=== PATIENT | female | born 1935 | race Caucasian/White ===

== ENCOUNTER 2023-04-15 10:25 | Outpatient (OUT) | payer MEDICARE, SELFPAY ==
[2023-04-15 11:09] LABS: Anion Gap 14.2; BUN Creatinine Ratio 31.5; Calcium 8.9 mg/dL (8.5-10.1); Carbon Dioxide 25.2 mmol/L (21.0-32.0); Chloride 105 mmol/L (98-107); Estimated GFR (African America 40 (>=60); Estimated GFR (Non-African Ame 33 (>=60); Glucose 132 mg/dL (74-106); Potassium 4.4 mmol/L (3.5-5.1); Sodium 140 mmol/L (136-145)
[2023-04-15 11:14] LABS: Basophils Absolute Auto 0.1 10^3/uL (0.0-0.1); Basophils Percent Auto 0.9 % (0.2-2.0); Eosinophils Absolute Auto 0.6 10^3/uL (0.0-0.7); Eosinophils Percent Auto 8.6 % (0.9-7.0); Hematocrit 33.4 % (36.0-48.0); Hemoglobin 10.8 g/dL (12.0-16.0); Immature Granulocytes Abs Auto 0.02 10^3/uL (0.00-0.03); Immature Granulocytes Pct Auto 0.3 % (0.0-0.5); Lymphocytes Absolute Auto 1.1 10^3/uL (1.2-3.8); Lymphocytes Percent Auto 16.5 % (20.5-60.0); Mean Corpuscular HGB Conc 32.3 g/dL (29.9-35.2); Mean Corpuscular Hemoglobin 29.3 pg (26.7-34.0); Mean Corpuscular Volume 90.8 fL (81.0-99.0); Mean Platelet Volume 9.6 fL (9.5-13.5); Monocytes Absolute Auto 0.5 10^3/uL (0.3-0.8); Monocytes Percent Auto 8.4 % (1.7-12.0); Neutrophils Absolute Auto 4.2 10^3/uL (1.4-6.5); Neutrophils Percent Auto 65.3 % (43.0-75.0); Platelet Count 238 10^3/uL (150-450); Red Blood Count 3.68 10^6/uL (4.20-5.40); White Blood Count 6.4 10^3/uL (4.0-11.0)
[2023-04-15 11:23] LABS: Estimated Average Glucose 117 mg/dL; Glycohemoglobin A1C 5.7 % (4.5-6.2)
== END 2023-04-15 10:26 | disposition home or self-care (01) ==
LOC: LAB 10:30
PROVIDERS: PCP Family Medicine; Visit Provider Family Medicine
DX: E11.22 Type 2 diabetes mellitus with diabetic chronic kidney disease (principal)
CPT/HCPCS: 36415; 80048; 83036; 85025

== ENCOUNTER 2023-06-02 13:38 | Outpatient (OUT) | payer MEDICARE, SELFPAY ==
--- NOTE | 2023-06-02 14:30 | CA_ITS ---
Patient: JUDIE JOHNSON Exam Date: 06/02/2023 : 1935 Gender:F Ordering : MISSY DEL ANGEL Admission #: [id number] Family : DR Marlen Wilkerson M.D. Order #: [id number] CLICK HERE TO VIEW EXAM ECHOCARDIOGRAM REPORT PROCEDURE: CA ECHO DOPPLER COMPLETE INDICATIONS: Chronic combined systolic and diastolic heart failure, non-rheumatic mitral valve stenosis, TAVR, hypertension, diabetes COMPARISON: None. DESCRIPTION: COMPLETE ECHOCARDIOGRAM Real-time transthoracic echocardiography with 2D, M-mode, spectral and color flow Doppler performed. QUALITY: Technical quality was good. LEFT VENTRICLE: Normal chamber size. Moderate concentric left ventricular hypertrophy. LV EF: Normal left ventricular ejection fraction, (>55%). Abnormal septal motion consistent with right ventricular pressure and/or volume overload. DIASTOLIC: Unable to assess due to severe mitral valve disease. ATRIAL SEPTUM: Inadequately seen. LEFT ATRIUM: Severe dilatation. RIGHT ATRIUM: Severe dilatation. RIGHT VENTRICLE: Moderate dilatation. Systolic function appears reduced. TRICUSPID VALVE: Normal mobility and thickness. Severe regurgitation. Doppler studies reveal severely (>60) elevated right sided pressures. RVSP 114 mmHg MITRAL VALVE: Severely thickened with decreased mobility. Severe mitral annular calcification. Moderate to severe mitral regurgitation. Gradients consistent with severe mitral stenosis. AORTIC VALVE: Not well seen. Bio-Prosthetic valve appears well seated in the aortic position with abnormally high Doppler flow. DVI 0.34. No aortic regurgitation. AORTIC ROOT: Normal diameter and appearance. PULMONIC VALVE: Normal thickness and mobility. No stenosis. Moderate regurgitation. PERICARDIUM: No evidence of pericardial effusion. IVC: IVC is normal in size with no collapse. CONCLUSION: 1. Global left ventricular systolic function is normal; visually estimated ejection fraction is 55 to 60% 2. Abnormal septal motion consistent with right ventricular pressure and/or volume overload 3. Moderate left ventricular hypertrophy 4. Severe biatrial enlargement 5. The right ventricle is moderately dilated with reduced systolic function 6. Severe tricuspid regurgitation 7. Doppler studies reveal severely elevated right-sided pressures; RVSP 114 mmHg 8. Moderate to severe mitral regurgitation 9. Severe mitral stenosis 10. A bioprosthetic valve is seen in the aortic position with abnormally high Doppler flow 11. Moderate pulmonic regurgitation Adult Echocardiography Procedure Report Left Ventricle LVEDD (3.7 - 5.6 cm): 4.32 cm LVESD (2.2 - 4.0 cm): 2.68 cm LVIVS thickness (0.6 - 1.2 cm): 1.54 cm LVPW thickness (0.5 - 1.0 cm): 0.91 cm LVOT Max Gradient: 4.00 mm[Hg] LVOT Area (cm2): 1.00 m/s Peak Velocity (LVOT): 1.00 m/s Mean Velocity (LVOT): 0.76 m/s LVOT Diameter 1.60 cm Left Atrium LA Volume Index (2D A2C): 69.27 ml/m2 Left Atrium Systolic Dimension: 5.13 cm Mitral Valve Right Ventricle Aorta AO Root Diam: 2.69 cm Aortic Valve AoV Area (Peak Christian): 0.70 cm2, 0.70 cm2 AoV Area (VTI): 0.97 cm2, 0.97 cm2 Peak Velocity(Antegrade Flow): 2.87 m/s Peak Gradient(Antegrade Flow): 32.93 mm[Hg] Mean Velocity(Antegrade Flow): 1.99 m/s Mean Gradient(Antegrade Flow): 18.20 mm[Hg] Velocity Time Integral: 64.61 cm Tricuspid Valve Peak Velocity (Regurgitant Flow): 4.82 m/s, 3.88 m/s, 4.83 m/s, 5.16 m/s Pulmonic Valve Peak Velocity: 1.12 m/s Peak Gradient: 5.15 mm[Hg], 4.97 mm[Hg] Right Atrium Right Atrium Systolic Pressure: 88.53 ml, 88.53 ml Dictated by: Albina Brower M.D. on 06/03/2023 at 12:48 Approved by: Albina Brower M.D. on 06/03/2023 at 12:57
== END 2023-06-02 13:39 | disposition home or self-care (01) ==
LOC: CARD 13:38
PROVIDERS: PCP Family Medicine; Visit Provider Nurse Practitioner
DX: I50.42 Chronic combined systolic (congestive) and diastolic (congestive) heart failure (principal); I34.2 Nonrheumatic mitral (valve) stenosis
CPT/HCPCS: 93306

== ENCOUNTER 2023-06-04 15:19 | Outpatient (OUT) | payer MEDICARE, SELFPAY ==
--- NOTE | 2023-06-04 | XR_ITS ---
The [address] [address] Patient Name: JUDIE JOHNSON MRN: [id number] date: 1935 Sex: F Assigned Patient Location: LAB Current Patient Location: Accession/Order Number: [id number] Exam Date: 06/04/2023 15:44 Report Date: 06/05/2023 13:58 At the request of: MISSY DEL ANGEL Procedure: XR chest 2V XR chest 2V COMPARISON: September 2022 chest x-ray CLINICAL HISTORY: R06.02, DYSPNEA TECHNIQUE: 2 views FINDINGS: There is a normal cardiac and mediastinal contour. Previous sternotomy and aortic valve prosthesis. The pulmonary vascular pattern is normal. The lungs are clear and the pleural margins are sharp. There are no significant skeletal abnormalities. XR/XR chest 2V IMPRESSION: NO ACUTE RADIOGRAPHIC FINDINGS. Electronically authenticated by: ADELINA MEHTA Date: 06/05/2023 13:58
[2023-06-04 15:39] LABS: Basophils Absolute Auto 0.1 10^3/uL (0.0-0.1); Basophils Percent Auto 1.2 % (0.2-2.0); Eosinophils Absolute Auto 0.7 10^3/uL (0.0-0.7); Eosinophils Percent Auto 8.5 % (0.9-7.0); Hematocrit 35.5 % (36.0-48.0); Hemoglobin 11.5 g/dL (12.0-16.0); Immature Granulocytes Abs Auto 0.03 10^3/uL (0.00-0.03); Immature Granulocytes Pct Auto 0.4 % (0.0-0.5); Lymphocytes Absolute Auto 1.6 10^3/uL (1.2-3.8); Lymphocytes Percent Auto 20.2 % (20.5-60.0); Mean Corpuscular HGB Conc 32.4 g/dL (29.9-35.2); Mean Corpuscular Hemoglobin 29.9 pg (26.7-34.0); Mean Corpuscular Volume 92.4 fL (81.0-99.0); Mean Platelet Volume 9.8 fL (9.5-13.5); Monocytes Absolute Auto 0.7 10^3/uL (0.3-0.8); Monocytes Percent Auto 8.4 % (1.7-12.0); Neutrophils Absolute Auto 4.7 10^3/uL (1.4-6.5); Neutrophils Percent Auto 61.3 % (43.0-75.0); Platelet Count 254 10^3/uL (150-450); Red Blood Count 3.84 10^6/uL (4.20-5.40); Red Cell Distribution Width 13.6 % (11.0-15.0); White Blood Count 7.7 10^3/uL (4.0-11.0)
[2023-06-04 15:56] LABS: Alanine Aminotransferase 16 U/L (14-59); Albumin Globulin Ratio 0.8; Albumin Level 3.7 g/dL (3.4-5.0); Alkaline Phosphatase 99 U/L (46-116); Anion Gap 13.6; Aspartate Amino Transferase 12 U/L (15-37); BUN Creatinine Ratio 31.5; Bilirubin Total 0.3 mg/dL (0.2-1.0); Calcium 9.1 mg/dL (8.5-10.1); Carbon Dioxide 27.2 mmol/L (21.0-32.0); Chloride 101 mmol/L (98-107); Estimated GFR (African America 29 (>=60); Estimated GFR (Non-African Ame 24 (>=60); Globulin 4.9 g/dL; Glucose 193 mg/dL (74-106); Potassium 4.8 mmol/L (3.5-5.1); Sodium 137 mmol/L (136-145); Total Protein 8.6 g/dL (6.4-8.2)
== END 2023-06-04 15:20 | disposition home or self-care (01) ==
LOC: LAB 15:20
PROVIDERS: PCP Family Medicine; Visit Provider Nurse Practitioner
DX: I50.41 Acute combined systolic (congestive) and diastolic (congestive) heart failure (principal); I27.20 Pulmonary hypertension, unspecified; R06.02 Shortness of breath
CPT/HCPCS: 36415; 71046; 80053; 83880; 85025

== ENCOUNTER 2023-06-14 13:20 | Emergency (ER) | payer MEDICARE, SELFPAY ==
[2023-06-14 13:30] VITALS: BP 129/75; PULSE 76; RESP 20; TEMP 36.6; O2SAT 97; BMI 23.8
--- NOTE | 2023-06-14 14:43 | ED.GENADUL1 ---
HPI - General Adult General Chief complaint: Wound/Laceration Stated complaint: CUT L THUMB/BLEEDING/ON A BLOOD THINNER/CHECK BP Time Seen by Provider: 06/14/23 14:11 Source: patient Mode of arrival: walk-in Limitations: no limitations History of Present Illness HPI narrative: Patient is a 87-year-old female who is presenting with a laceration to the base of the right thumb fingernail, ulnar aspect. Approximately 0.5 cm. Patient was using a knife in the kitchen and cut her finger. Pt stated bleeding was approx 2 hours, so she came into ER. Patient had her finger soaked and cleaned when she arrived to the Emergency Room, bleeding has stopped. The nail was not involved. Patient is right-hand dominant. Patient does not know when the last time her tetanus shot was. . All systems are negative except as noted/marked. All systems reviewed and otherwise negative. . Nurses note and vital signs reviewed and patient is not hypoxic. General: The patient appears well and in no apparent distress. Patient is resting comfortably on cart. Patient is not toxic, lethargic, or listless Skin: Warm, dry, no pallor noted. There is no rash noted. No petechiae, purpura.Patient has a 0.5 cm superficial laceration at the base of her left thumbnail, all their aspect. Nail is not involved. No subungual hematoma. No active bleeding after finger has been soaked and cleaned. Full range of motion of left thumb with no difficulty. Head: Normocephalic, atraumatic Eye: Normal conjunctiva, no drainage, EOMI. PERRL Ears, Nose, Mouth, and Throat: oral mucosa is moist. Cardiovascular: Regular Rate and Rhythm, no murmur, gallop, rub Respiratory: Patient is in no distress, no accessory muscle use, lungs are clear to auscultation, no wheezing, rales or rhonchi Musculoskeletal: Patient has full range of motion of all of the extremities, no motor, sensory, or focal neurological deficits Neurological: A&O x3, normal speech Psychiatric: Cooperative Related Data Allergies Allergy/AdvReac Type Severity Reaction Status Date / Time acetaminophen [From Lortab] Allergy Unknown Verified 06/14/23 13:34 codeine Allergy Unknown Verified 06/14/23 13:34 hydrocodone [From Lortab] Allergy Unknown Verified 06/14/23 13:34 hydroquinone Allergy Unknown Verified 06/14/23 13:34 sulfamethoxazole Allergy Unknown Verified 06/14/23 13:34 [From Bactrim] trimethoprim [From Bactrim] Allergy Unknown Verified 06/14/23 13:34 Exam Constitutional Vital Signs, click to edit/add: Last Vital Signs Temp 97.8 F 06/14/23 13:30 Pulse 76 06/14/23 13:30 Resp 20 06/14/23 13:30 BP 129/75 06/14/23 13:30 Pulse Ox 97 06/14/23 13:30 O2 Del Method Room Air 06/14/23 13:30 Course Vital Signs Vital signs: Vital Signs Temperature 97.8 F 06/14/23 13:30 Pulse Rate 76 06/14/23 13:30 Respiratory Rate 20 06/14/23 13:30 Blood Pressure 129/75 06/14/23 13:30 Pulse Oximetry 97 06/14/23 13:30 Oxygen Delivery Method Room Air 06/14/23 13:30 Temperature 97.8 F 06/14/23 13:30 Pulse Rate 76 06/14/23 13:30 Respiratory Rate 20 06/14/23 13:30 Blood Pressure 129/75 06/14/23 13:30 Pulse Oximetry 97 06/14/23 13:30 Oxygen Delivery Method Room Air 06/14/23 13:30 Medical Decision Making MDM Narrative Medical decision making narrative: Patient had her tetanus updated, TdaP was given. Patient had wound cleaning, bleeding is stopped. Dermabond has been use. Education on wound care was done at bedside and on discharge paperwork. No questions at discharge. Discharge Plan Discharge Chief Complaint: Wound/Laceration Clinical Impression: Laceration Patient Disposition: Home, Self-Care Condition: Good Mode of Transportation: Private Vehicle Instructions: Laceration (ED), Finger Laceration (ED) Additional Instructions: Do not use bacitracin or Neosporin on her wound for the next 5 days, it will break down the skin glue. You had TdaP booster today. Stand Alone Forms: Portal Instructions Referrals: Marlen Wilkerson MD [Primary Care Provider] - 1 week Discharge Date/Time: 06/14/23 15:11
[2023-06-14] MEDS: ADACEL DIPH,PERTUSS(ACELL),TET VAC/PF 0.5 ML ADULT SYRINGE IM (14:59)
== END 2023-06-14 15:11 | disposition home or self-care (01) ==
PROVIDERS: Emergency Provider Emergency Medicine; PCP Family Medicine
DX: S61.012A Laceration without foreign body of left thumb without damage to nail, initial encounter (principal); W26.0XXA Contact with knife, initial encounter; Z23 Encounter for immunization
CPT/HCPCS: 12001; 90471; 90715; 99284

== ENCOUNTER 2023-07-12 11:27 | Outpatient (OUT) | payer MEDICARE, SELFPAY ==
[2023-07-12 11:50] LABS: Basophils Absolute Auto 0.1 10^3/uL (0.0-0.1); Eosinophils Absolute Auto 0.8 10^3/uL (0.0-0.7); Eosinophils Percent Auto 11.2 % (0.9-7.0); Hematocrit 34.9 % (36.0-48.0); Hemoglobin 11.5 g/dL (12.0-16.0); Immature Granulocytes Abs Auto 0.03 10^3/uL (0.00-0.03); Immature Granulocytes Pct Auto 0.4 % (0.0-0.5); Lymphocytes Absolute Auto 1.5 10^3/uL (1.2-3.8); Lymphocytes Percent Auto 21.1 % (20.5-60.0); Mean Corpuscular Hemoglobin 29.7 pg (26.7-34.0); Mean Corpuscular Volume 90.2 fL (81.0-99.0); Mean Platelet Volume 9.6 fL (9.5-13.5); Monocytes Absolute Auto 0.7 10^3/uL (0.3-0.8); Monocytes Percent Auto 10.5 % (1.7-12.0); Neutrophils Absolute Auto 3.8 10^3/uL (1.4-6.5); Neutrophils Percent Auto 55.8 % (43.0-75.0); Platelet Count 217 10^3/uL (150-450); Red Blood Count 3.87 10^6/uL (4.20-5.40); Red Cell Distribution Width 13.3 % (11.0-15.0); White Blood Count 6.9 10^3/uL (4.0-11.0)
[2023-07-12 12:20] LABS: Anion Gap 14.7; BUN Creatinine Ratio 21.8; Calcium 8.6 mg/dL (8.5-10.1); Carbon Dioxide 25.6 mmol/L (21.0-32.0); Chloride 102 mmol/L (98-107); Estimated GFR (African America 31 (>=60); Estimated GFR (Non-African Ame 25 (>=60); Glucose 214 mg/dL (74-106); Potassium 4.3 mmol/L (3.5-5.1); Sodium 138 mmol/L (136-145)
== END 2023-07-12 11:28 | disposition home or self-care (01) ==
LOC: LAB 11:28
PROVIDERS: PCP Family Medicine; Visit Provider Internal Medicine Interventional Cardiology
DX: I50.41 Acute combined systolic (congestive) and diastolic (congestive) heart failure (principal)
CPT/HCPCS: 36415; 80048; 85025

== ENCOUNTER 2023-12-01 07:04 | Outpatient (OUT) | payer MEDICARE, SELFPAY ==
--- OUTSIDE RECORDS SUMMARY | 2023-12-01 07:10 | XMS_ITS | CCD ---
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 Name Role Phone Flower Garza Unavailable JAZMINE TREVINO Admitting Unavailable YOKO HELMS Referring Unavailable SCOOTER, YOKO Primary Care Unavailable JUAN MANUEL ALONZO Attending Unavailable SCOOTER, YOKO Primary Care Unavailable YOKO HELMS Referring Unavailable MOUKARBEL, TANISHA Garcia Admitting Unavailable MOUKARBEL, TANISHA Garcia Attending Unavailable SCOOTER, YOKO Primary Care Unavailable DAVEY CARRASCO Admitting Unavailable DAVEY CARRASCO Attending Unavailable YOKO HELMS Referring Unavailable HELMS, YOKO Primary Care Unavailable SCOOTER, YOKO Referring Unavailable MOUKARBEL, TANISHA Radha Admitting Unavailable MOUKARBEL, TANISHA Garcia Attending Unavailable SCOOTER, YOKO Primary Care Unavailable SCOOTER, YOKO Referring Unavailable MOUKARBEL, TANISHA Radha Admitting Unavailable MOUKARBEL, TANISHA Garcia Attending Unavailable SCOOTER, YOKO Primary Care Unavailable DAVEY CARRASCO Admitting Unavailable DAVEY CARRASCO Attending Unavailable SCOOTER, YOKO Referring Unavailable Yoko Helms MD Primary Care Provider [phone] Yoko Helms MD Primary Care Provider DO Brad Harper Emergency Provider [phone] MD Yoko Helms Primary Care Provider DO Donn Joseph Admit Provider [phone] DO Donn Joseph Attending Provider Maria C Pelayo Other Provider Unavailable DO Petty Crandall Other Provider MD Андрей Marsh Other Provider DO Oscar Ward Other [facility] Other Provider DO Gigi Hernandez Other Provider HEMANT You Other Provider MILES Atkinson Other Provider YOKO HELMS Primary Care Unavailable KAVEH CARTAGENA Referring Unavailable PROVIDER, UNKNOWN Attending Unavailable PROVIDER, UNKNOWN Admitting Unavailable HELMS, YOKO Primary Care Unavailable PROVIDER, UNKNOWN Admitting Unavailable PROVIDER, UNKNOWN Attending Unavailable HELMS, YOKO Primary Care Unavailable PROVIDER, UNKNOWN Attending Unavailable PROVIDER, UNKNOWN Admitting Unavailable HELMS, YOKO Primary Care Unavailable PROVIDER, UNKNOWN Attending Unavailable PROVIDER, UNKNOWN Admitting Unavailable CONSULT, IP DENTISTRY ADULT Consulting Unav ailable DODGE, NURYS Referring Unavailable SCOOTER, YOKO Primary Care Unavailable ATASSI, BROOK Admitting Unavailable STARKEY, JUAN Attending Unavailable REQUEST, IP PHYSICAL THERAPY SERVICE Consulting Unavailable REQUEST, IP OCCUPATIONAL THERAPY SERVICE Consult ing Unavailable HELMS, YOKO Primary Care Unavailable KAVEH CARTAGENA Referring Unavailable PROVIDER, UNKNOWN Attending Unavailable PROVIDER, UNKNOWN Admitting Unavailable Vahe Helmsia Unavailable Asad Pollard Unavailable DO Brad Harper Emergency Provider Unavailab MD Yoko Beth Primary Care Provider DO Donn Joseph Admit Provider [phone] DO Donn Joseph Attending Provider Maria C Pelayo Other Provider Unavailable DO Petty Crandall Other Provider MD Андрей Marsh Other Provider DO Oscar Ward M Other Provider [facility] Jodi Other Provider DO Gigi Hernandez Other Provider HEMANT You Other Provider MILES Atkinson Other Provider DO Asad Pollard Attending Provider Latrice, Asad A Admitting Unavailable Latrice, Asad A Attending Unavailable Helms, Yoko Ceron Primary Care Unavailable Latrice, Asad A Admitting Unavailable Latrice, Asad A Attending Unavailable Helms, Yoko Ceron Primary Care Unavailable Helms, Yoko Ceron Primary Care Unavailable Frings, Donn Admitting Unavailable Frings, Donn Attending Unavailable Sciarappa, Maria C Consulting Unavailable Raz, Petty Consulting Unavailable [place], Андрей Consulting Unavailable Sylvia, Oscar Escobedo Consulting Unavailkvng Swift, Jodi Consulting Unavailable Kapshahla, Gigi Escobedo Consulting Unavailable Gillmor, Ana Escobedo Consulting Unavailable Demetrio, Maria Bowling Consulting Unavailable MISC, DR MCDONALD Attending Unavailable MISC, DR MCDONALD Admitting Unavailable HELMS, DR YOKO Ceron Primary Care Unavailable MISC, DR MCDONALD Consulting Unavailable EBRAHEIM, DR SPANN Attending Unavailable EBRAHEIM, DR SPANN Admitting Unavailable HELMS, DR YOKO Ceron Primary Care Unavailable EBRAHEIM, DR SPANN Consulting Unavailable KASH, BRETT Attending Unavailable KASH, BRETT Admitting Unavailable HELMS, DR YOKO Ceron Primary Care Unavailable KASH, BRETT Consulting Unavailable MOUKARBEL, DR GARAY Consulting Unavailable HELMS, DR YOKO Ceron Primary Care Unavailable MOUKARBEL, DR GARAY Attending Unavailable MOUKARBEL, DR GARAY Admitting Unavailable MOUKARBEL, DR GARAY Referring Unavailable HELMS, DR SMITH Admitting Unavailable HELMS, DR YOKO Ceron Primary Care Unavailable HELMS, DR YOKO Ceron Consulting Unavailable HELMS, DR SMITH Attending Unavailable HELMS, DR YOKO Ceron Primary Care Unavailable MOUKARBEL, DR GARAY Consulting Unavailable MOUKARBEL, DR GARAY Attending Unavailable MOUKARBEL, DR GARAY Admitting Unavailable NADERER, DR VAHE Valdivia Admitting Unavailable HELMS, DR YOKO Ceron Primary Care Unavailable REINECK, DR JOHANNY Herbert Consulting Unavailabl e NADEREJyothi, DR VAHE Valdivia Attending Unavailable WEST, DR JOBY Garcia Consulting Unavailable NADERER, DR VAHE Valdivia Consulting Unavailable CRISTARANDY Consulting Unavailable KLIPPJOBY MCKEON Consulting Unavailable JAY .LISSA Consulting Unavailable HAY ., DR LINN Attending Unavailable HAY ., DR LINN Admitting Unavailable HELMS, DR YOKO Ceron Primary Care Unavailable HAY ., DR LINN Consulting Unavailable АНДРЕЙ LOCK Consulting Unavailable BLAS MASON Consulting Unavailable INDIRA, CLIFFORD Consulting Unavailable MILTON, DONN Consulting Unavailable KARUNA ., CODY Attending Unavailable KARUNA ., CODY Admitting Unavailable ZIEBER, DR АНДРЕЙ Roe Consulting Unavailable HELMS, DR YOKO Ceron Primary Care Unavailable KARUNA ., CODY Consulting Unavailable ELTAHAWY, DR OTERO Attending Unavailable ELTAHAWY, DR OTERO Admitting Unavailable HELMS, DR YOKO Ceron Primary Care Unavailable ELTAHAWY, DR OTERO Consulting Unavailable HELMS, DR YOKO Ceron Consulting Unavailable HELMS, DR YOKO Ceron Consulting Unavailable HELMS, DR YOKO Ceron Attending Unavailable HELMS, DR YOKO Ceron Admitting Unavailable HELMS, DR YOKO Ceron Primary Care Unavailable OLEXA, FLOWER Attending Unavailable OLEXA, FLOWER Admitting Unavailable HELMS, DR YOKO Ceron Primary Care Unavailable ZIEBER, DR АНДРЕЙ Roe Consulting Unavailable OLEXA, FLOWER Consulting Unavailable MOUKARBEL, DR GARAY Admitting Unavailable HELMS, DR YOKO Ceron Primary Care Unavailable MOUKARBEL, DR GARAY Consulting Unavailable MOUKARBEL, DR GARAY Attending Unavailable HELMS, DR YOKO Ceron Primary Care Unavailable MOUKARBEL, DR GARAY Consulting Unavailable MOUKARBEL, DR GARAY Attending Unavailable MOUKARBEL, DR GARAY Admitting Unavailable MOUKARBEL, TANISHA Attending Unavailable BEAN, PRAVEENA Attending Unavailable MOUKARBEL, TANISHA Admitting Unavailable MOUKARBEL, TANISHA Attending Unavailable BEAN, PRAVEENA Attending Unavailable BEAN, PRAVEENA Attending Unavailable Allergies Allergy Classification Reported Allergen(s) Allergy Type Date of Onset Reaction(s) Facility (18 sources) Acetaminophen / HYDROcodone Drug Allergy Unknown [employer] Other (20 sources) hydroquinone; Translations: [HYDROQUINONE] Drug Allergy Unknown, Unknown Reaction [facility] (20 sources) Sulfamethoxazole / Trimethoprim Drug Allergy [facility] [employer] Other (1 source) Acetaminophen / HYDROcodone Drug Allergy [facility] Repository (7 sources) Codeine; Translations: [CODEINE] Drug Allergy [facility] Repository (3 sources) Hydroxychloroquine; Translations: [HYDROXYCHLOROQUINE] Drug Allergy [facility] Repository (2 sources) Sulfamethoxazole / Trimethoprim Drug Allergy [facility] Repository (6 sources) Acetaminophen / HYDROcodone; Translations: [HYDROCODONE-ACETAMIN OPHEN] [facility] Codeine Drug Allergy [facility] Work Phone: (8 sources) HYDROcodone; Translations: [HYDROCODONE] Drug Allergy Hives [facility] (4 sources) hydroquinone Drug Allergy Rash [facility] (10 sources) Hydroxychloroquine Drug Allergy Nausea [facility] (4 sources) Acetaminophen; Translations: [acetaminophen] Drug Allergy Unknown Reaction [facility] (4 sources) Sulfamethoxazole; Translations: [sulfamethoxazole] Drug Allergy Unknown Reaction [facility] (4 sources) Trimethoprim; Translations: [trimethoprim] Drug Allergy Unknown Reaction [facility] (1 source) SULFAMETHOXAZOLE W-TRIMETHOPRIM; Translations: [SULFAMETHOXAZOLE W-TRIMETHOPRIM] Propensity to adverse reactions to drug (disorder) [facility] Repository (1 source) Codeine Drug Allergy [facility] Repository (1 source) HYDROcodone Drug Allergy [facility] Repository (1 source) hydroquinone Drug Allergy [facility] Repository (1 source) Acetaminophen Drug Allergy [facility] Repository (1 source) Acetaminophen / HYDROcodone Drug Allergy [facility] Repository (1 source) Carbidopa Drug Allergy [facility] Rep[facility] (1 source) HYDROcodone Drug Allergy [facility] Rep[facility] (2 sources) Sulfamethoxazole / Trimethoprim; Translations: [SULFAMETHOXAZOLE-TRI METHOPRIM] Drug Allergy [facility] Repository (6 sources) Codeine Drug Allergy Unknown [employer] Other (6 sources) Lortab *ANALGESICS - OPIOID* Propensity to adverse reactions Unknown [employer] Other Medications Current Medications Medication Drug Class(es) Dates Sig (Normalized) Sig (Original) acetaminophen 325 mg oral tablet (3 sources) Start: 09-04-2022 acetaminophen (TYLENOL) tablet Acetaminophen Ac tive acetaminophen 300 mg / codeine phosphate 30 mg oral tablet (2 sources) Opioid Agonist Start: 04-14-2021 take 1 tablet by mouth every eight hours Acetaminophen-Codeine #3 300-30 MG 1 tablet as needed Orally every 8 hrs for 7 days Mar, Active amLODIPine 10 mg oral tablet (20 sources) Dihydropyridine Calcium Channel Emanuel Start: 09-19-2022 take 10 mg by mouth once daily Amlodipine Active 10 MG PO Daily September 19, 2022 1:00am take 1 tablet by chapincito th every twenty-four hours amLODIPine Besylate 5 MG 1 tablet Orally Once a day Active Aspir-81 (20 sources) Aspir-81 Active aspirin 81 mg delayed release oral tablet (8 sources) Platelet Aggregation Inhibitor, Nonsteroidal Anti-inflammatory Drug Start: 09-19-2022 take 81 mg by mouth once daily Aspirin Active 81 MG PO Daily September 19, 2022 1:00am Start: 07-27-2022 aspirin EC 81 MG tablet Take 81 mg by mouth. 0 07/27/2022 Active cephalexin 500 mg oral capsule (2 sources) Cephalosporin Antibacterial take 1 capsule by mouth every six hours Cephalexin 500 MG 1 capsule Orally Four times a day Active clopidogrel 75 mg oral tablet (20 sources) P2Y12 Platelet Inhibitor take 1 tablet by mouth every twenty-four hours Clopidogrel Bisulfate 75 MG 1 tablet Orally Once a day Active dapagliflozin 10 mg oral tablet (2 sources) Sodium-Glucose Cotransporter 2 Inhibitor take 1 tablet by mouth every twenty-four hours Farxiga 10 MG 1 tablet once a day Active dextrose 10 % iv infusion (1 source) Start: 09-04-20 dextrose 10 % iv infusion furosemide 20 mg oral tablet (20 sources) Loop Diuretic Start: 09-19-20 take 40 mg by mouth once daily Furosemide Active 40 MG PO Daily September 19, 2022 1:00am Start: 09-04-2022 End: 09-04-2022 furosemide (LASIX) 10 mg/mL injection Start: 08-31-2022 End: 09-05-2022 furosemide (LASIX) 20 MG tab let take 1 tablet by chapincito th twice daily Furosemide 40 MG TAKE 1 TABLET BY MOUTH TWICE A DAY for 90 Active insulin aspart, human 100 unt/ml injectable solution (9 sources) Insulin Analog Start: 01-26-2023 NovoLOG 100 UN IT/ML per sliding scale Injection 3-4x/day January, Active Start: 01-26-2023 NovoLOG 100 UN IT/ML per sliding scale Injection 3-4x/day for 90 days January, Active insulin detemir 100 unt/ml injectable solution (10 sources) Insulin Analog Start: 08-23-2022 inject 35 [IU] by subcutaneous injection once daily Insulin Detemir U-100 (Levemir U-100 Insulin) 100 unit/mL solution Active 35 UNIT SUBCUT Daily September 19, 2022 1:00am inject 35 [IU] by quinones bcutaneous injection once daily Levemir 100 UNIT/ML INJECT 35 UNITS SUBCUTANEOUSLY EVERY DAY for 30 Active 3 ml insulin glargine 100 unt/ml pen injector (11 sources) Insulin Analog Start: 01-26-2023 Basaglar KwikP en 100 UNIT/ML 35 units Subcutaneous daily January, Active Start: 09-04-2022 inject 20 [IU] by quinones bcutaneous injection at bedtime 20 Units, Subcutaneous, AT BEDTIME, First dose on Wed09/04/22 at 2200, Until Discontinued Insulin Glargine Solostar 100 UNIT/ML INJECT 35 UNITS SUBCUTANEOUSLY ONCE EVERY MORNING for 43 Active insulin lispro 100 unt/ml injectable solution (5 sources) Insulin Analog Start: 09-04-2022 insulin lispro (HumaLOG) 100 UNIT/ML injection Insulin Lispro ( 1 Unit Dial) 100 UNIT/ML USE DIRECTED PER SLIDING SCALE BEFORE MEALS AND AT BEDTIME UP TO 10 UNITS DAILY for 150 Active Levemir FlexTouch (20 sources) Levemir FlexTouc h Active Meclizine (2 sources) Antiemetic Meclizine HCl Ac tive 24 hr metoprolol succinate 25 mg extended release oral tablet (20 sources) beta-Adrenergic Emanuel Start: 07-11-2022 take 25 mg by mouth once daily Metoprolol Succinate Active 25 MG PO Daily September 19, 2022 1:00am potassium chloride 20 meq extended release oral tablet (20 sources) Start: 09-19-2022 take 20 mEq by mouth once daily Potassium Chloride Active 20 MEQ PO Daily September 19, 2022 1:00am Start: 09-02-2022 End: 09-05-2022 Potassium Chloride ER 20 MEQ TBCR take 1 tablet by chapincito th once daily Klor-Con M20 20 MEQ TAKE 1 TABLET BY MOUTH EVERY DAY for 30 Active Potassium Chlori de ER Active sildenafil 20 mg oral tablet (2 sources) Phosphodiesterase 5 Inhibitor take 1 tablet by mouth every eight hours Sildenafil Citrate 20 MG 1 tablet 3 times a day Active sodium bicarb (4 sources) sodium bicarb Active sodium bicarbonate 650 mg oral tablet (20 sources) Start: 09-19-20 take 1300 mg by mouth twice daily Sodium Bicarbonate Active 1300 MG PO Twice daily September 19, 2022 1:00am Start: 07-20-2022 take 2 tablets by mo [facility] twice daily sodium bicarbonate 650 MG tablet Take 1,300 mg by mouth 2 times daily. 0 07/20/2022 Active take 1 tablet by chapincito twice daily Sodium Bicarbonate 650 MG TAKE 1 TABLET BY MOUTH TWICE A DAY for 90 Active valsartan (2 sources) Angiotensin 2 Receptor Emanuel V alsartan Active Completed/Discontinued Medications Medication Drug Class(es) Dates Sig (Normalized) Sig (Original) calcium chloride 0.0014 meq/ml / potassium chloride 0.004 meq/ml / sodium chloride 0.103 meq/ml / sodium lactate 0.028 meq/ml injectable solution (2 sources) Start: 09-05-2022 End: 09-05-2022 lactated ringers iv bolus Start: 09-04-2022 End: 09-04-2022 lactated ringers iv bolus fentaNYL Citrate PF SOSY 25 mcg (1 source) Start: 09-03-2022 End: 09-03-2022 fentaNYL Citrate PF SOSY 25 mcg iohexol (OMNIPAQUE) 350 MG/ML injection (1 source) Start: 09-03-2022 End: 09-03-2022 iohexol (OMNIPAQUE) 350 MG/ML injection losartan potassium 25 mg oral tablet (20 sources) Angiotensin 2 Receptor Emanuel Start: 09-04-2022 take 12.5 mg by mouth once daily 12.5 mg, Oral, DAILY, First dose on Wed09/04/22 at 0900, Until Discontinued Start: 09-23-2021 take 0.5 tablet by m outh once daily losartan (COZAAR) 25 MG tablet Take 0.5 Tablets by mouth daily. 0 09/23/2021 Active take 1 tablet by chapincito every twenty-four hours Losartan Potassium 25 MG 1 tablet Orally Once a day Active Problems Active Problems Problem Classification Problem Date Documented Da te Episodic/Chronic Acquired foot deformities (6 sources) Foot-drop; Translations: [Foot drop, right foot] Onset: 09-20-2022 09-23-2022 Episodic Acute myocardial infarction (20 sources) Myocardial infarction; Translations: [Myocardial infarction type 2] Onset: 01-29-2023 Chronic Cardiac dysrhythmias (6 sources) Longstanding persistent atrial fibrillation; Translations: [Longstanding persistent atrial fibrillation] Chronic Cardiac dysrhythmias (1 source) Bradycardia; Translations: [Bradycardia, unspecified] Episodic Chronic kidney disease (6 sources) Chronic kidney disease stage 3; Translations: [CKD (chronic kidney disease) stage 3, GFR 30-59 ml/min] Onset: 09-18-2021 09-04-2022 Chronic Chronic kidney disease (6 sources) Chronic kidney disease; Translations: [CHRONIC KIDNEY DISEASE STAGE 3B] Onset: 07-27-2022 Congestive heart failure; nonhypertensive (20 sources) Acute on chronic diastolic heart failure; Translations: [Acute on chronic diastolic (congestive) heart failure] Onset: 09-18-2021 09-04-2022 Chronic Coronary atherosclerosis and other heart disease (20 sources) Coronary atherosclerosis; Translations: [Atherosclerotic heart disease of [place] coronary artery without angina pectoris] Onset: 01-29-2023 Chronic Deficiency and other anemia (20 sources) Anemia; Translations: [Anemia in chronic kidney disease] Chronic Deficiency and other anemia (20 sources) Anemia co-occurrent and due to chronic kidney disease stage 3; Translations: [Chronic kidney disease, stage 3b] Chronic Deficiency and other anemia (4 sources) Anemia in chronic kidney disease; Translations: [ANEMIA IN CHRONIC KIDNEY DISEASE] Onset: 11-22-2022 Chronic Delirium, dementia, and amnestic and other cognitive disorders (1 source) Unspecified dementia without behavioral disturbance; Translations: [UNSP KLAUDIA UNS SEV W/O DSTRB ANXTY] Onset: 10-07-2022 Chronic Diabetes mellitus with complications (20 sources) Insulin treated type 2 diabetes mellitus; Translations: [Type 2 diabetes mellitus with diabetic chronic kidney disease] Onset: 10-07-2022 Chronic Diabetes mellitus without complication (7 sources) Diabetes mellitus; Translations: [Type 2 diabetes mellitus without complications] Onset: 02-01-2019 09-04-2022 Chronic Essential hypertension (13 sources) Hypertensive disorder; Translations: [Essential (primary) hypertension] Onset: 02-01-2019 09-04-2022 Chronic Heart valve disorders (20 sources) History of aortic valve replacement; Translations: [Presence of prosthetic heart valve] Onset: 02-01-2019 09-04-2022 Chronic Heart valve disorders (3 sources) Cardiac murmur, unspecified Episodic Hypertension with complications and secondary hypertension (3 sources) Hypertensive heart and chronic kidney disease with heart failure and stage 1 through stage 4 chronic kidney disease, or unspecified chronic kidney disease; Translations: [Hypertensive heart disease with heart failure] Onset: 10-07-2022 Chronic Osteoarthritis (20 sources) Osteoarthritis of joint of left hand; Translations: [Primary osteoarthritis, left hand] Chronic Other aftercare (20 sources) Long-term current use of insulin; Translations: [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 insulin] Episodic Other ear and sense organ disorders (1 source) Impacted cerumen, bilateral Episodic Other ear and sense organ disorders (1 source) Impacted cerumen, left ear Episodic Other lower respiratory disease (1 source) Hypoxia; Translations: [Hypoxemia] Episodic Other lower respiratory disease (1 source) Acute pulmonary edema; Translations: [Acute pulmonary edema] Episodic Georgie-; endo-; and myocarditis; cardiomyopathy (except that caused by tuberculosis or sexually transmitted disease) (3 sources) Hypertrophic cardiomyopathy; Translations: [Other hypertrophic cardiomyopathy] Onset: 08-11-2023 Chronic Pulmonary heart disease (2 sources) Pulmonary hypertension, unspecified; Translations: [Pulmonary hypertension, unspecified] Onset: 06-04-2023 Chronic Syncope (6 sources) Syncope; Translations: [Syncope and collapse] Onset: 09-04-2022 09-04-2022 Episodic Unclassified (1 source) Displaced fracture of neck of fourth metacarpal bone, left hand, subsequent encounter for fracture with routine healing; Translations: [Displaced fracture of neck of fourth metacarpal bone, left hand, subsequent encounter for fracture with routine healing] Onset: 11-30-2022 Unclassified (1 source) Pain in left hand; Translations: [Pain in left hand] Onset: 10-26-2022 Unclassified (1 source) Other fracture of fourth metacarpal bone, left hand, initial encounter for closed fracture; Translations: [Other fracture of fourth metacarpal bone, left hand, initial encounter for closed fracture] Onset: 09-20-2022 Unclassified (1 source) CONTACT W/AND (SUSP) EXPOS COVID-19; Translations: [CONTACT W/AND (SUSP) EXPOS COVID-19] Onset: 10-07-2022 Past or Other Problems Problem Classification Problem Date Documented Date Episodic/Chronic Conditions associated with dizziness or vertigo (1 source) Dizziness and giddiness; Translations: [DIZZINESS AND GIDDINESS] Onset: 09-06-2022 Episodic Disorders of teeth and jaw (1 source) Other dental procedure status; Translations: [OTHER DENTAL PROCEDURE STATUS] Onset: 10-07-2022 Episodic E Codes: Fall (8 sources) Fall; Translations: [Unspecified fall, initial encounter] Onset: 09-06-2022 Episodic E Codes: Unspecified (1 source) Nosocomial condition; Translations: [NOSOCOMIAL CONDITION] Onset: 10-07-2022 Episodic Fluid and electrolyte disorders (5 sources) Dehydration; Translations: [Hyperkalemia] Onset: 05-18-2022 Episodic Fracture of upper limb (20 sources) Other nondisplaced fracture of upper end of left humerus, subsequent encounter for fracture with routine healing; Translations: [Other displaced fracture of upper end of left humerus, subsequent encounter for fracture with nonunion] Onset: 06-10-2021 Resolved: 04-21-2022 Episodic Immunizations and screening for infectious disease (1 source) Encounter for immunization; Translations: [ENCOUNTER FOR IMMUNIZATION] Onset: 09-06-2022 Episodic Malaise and fatigue (1 source) Weakness; Translations: [WEAKNESS] Onset: 10-07-2022 Episodic Other aftercare (2 sources) custodial (current) use of insulin; Translations: [STEAM SHOVEL ENGINEER CURRENT USE OF INSULIN] Onset: 10-07-2022 Episodic Other aftercare (1 source) 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 aspirin; Translations: [STEAM SHOVEL ENGINEER CURRENT USE OF ASPIRIN] Onset: 10-07-2022 Episodic Other aftercare (1 source) Other lobsterman (current) drug therapy; Translations: [OTH STEAM SHOVEL ENGINEER CURRENT DRUG THERAPY] Onset: 10-07-2022 Episodic Other aftercare (1 source) Encounter for palliative care; Translations: [ENCOUNTER FOR PALLIATIVE CARE] Onset: 10-07-2022 Episodic Other connective tissue disease (4 sources) Other specified soft tissue disorders; Translations: [OTHER SPEC SOFT TISSUE DISORDERS] Onset: 05-20-2022 Episodic Other diseases of kidney and ureters (2 sources) Disorder of kidney and ureter, unspecified; Translations: [Disorder of kidney and ureter, unspecified] Onset: 01-29-2023 Episodic Other injuries and conditions due to external causes (1 source) History of falling; Translations: [HISTORY OF FALLING] Onset: 10-07-2022 Episodic Other injuries and conditions due to external causes (3 sources) Unspecified injury of face, initial encounter; Translations: [UNSPECIFIED INJURY FACE INITIAL ENC] Onset: 09-03-2022 Episodic Other lower respiratory disease (2 sources) Shortness of breath; Translations: [Shortness of breath] Onset: 06-07-2023 Episodic Other non-traumatic joint disorders (1 source) Pain in left hip; Translations: [PAIN IN LEFT HIP] Onset: 09-06-2022 Episodic Other non-traumatic joint disorders (1 source) Pain in right hip; Translations: [PAIN IN RIGHT HIP] Onset: 09-06-2022 Episodic Pneumonia (except that caused by tuberculosis or sexually transmitted disease) (3 sources) Unspecified bacterial pneumonia; Translations: [Pneumonia, unspecified organism] Onset: 10-03-2022 Episodic Residual codes; unclassified (1 source) Altered mental status, unspecified; Translations: [ALTERED MENTAL STATUS UNSPECIFIED] Onset: 10-07-2022 Episodic Residual codes; unclassified (1 source) Do not resuscitate; Translations: [DO NOT RESUSCITATE] Onset: 10-07-2022 Episodic Residual codes; unclassified (1 source) Other specified postprocedural states; Translations: [H SPECIFIED POSTPROCEDURAL STATES] Onset: 05-22-2022 Episodic Skull and face fractures (2 sources) Fracture of alveolus of mandible, unspecified side, initial encounter for closed fracture; Translations: [Fracture of tooth (traumatic), initial encounter for closed fracture] Onset: 09-06-2022 Episodic Superficial injury; contusion (1 source) Contusion of left hip, initial encounter; Translations: [CONTUSION LEFT HIP INITIAL ENC] Onset: 09-06-2022 Episodic Unclassified (3 sources) Longstanding persistent atrial fibrillation Results Test Name Value Interpretation Reference Range Facility Office Visiton 11-01-2023 Follow-up visit [id number] Eliz Hewitt 1935 F Date Provider Department Center 11/01/2023 Rona-TANISHA ARELLANO ANGEL [facility] Family History Family history unknown: Yes Level of Service:44599 [place] OFFICE/OUTPATIENT ESTABLISHED MOD MDM 30 MIN [facility] Office Visiton 08-11-2023 Follow-up visit [id number] Eliz Hewitt 1935 F Date Provider Department Center 08/11/2023 120-PRAVEENA DEL ANGEL [facility] Family History Family history unknown: Yes Level of Service:16905 [place] OFFICE/OUTPATIENT ESTABLISHED MOD MDM 30-39 MIN Reason for Visit and Comments: Follow-up [106402] [facility] 36on 07-21-2023 36 Patient's daughter in law called stating since the medication changes were made last week, patient has been very shakey and SOB. This morning she is very weak and shakey and could barely get out of bed. BP was 115/40 HR 61 when she checked it for me while on the phone. BP earlier was 112/64. Sugar was 180. She denies chest pain. Do you want her to go to the ED or make another medication change? Please advise. Thanks. [facility] HPon 07-15-2023 HP History Of Present Illness Eliz Hewitt is a 87 y.o. female here for Coronary Artery Disease, Congestive Heart Failure, Valve Disorder, and Hypertension Aortic valve stenosis-s/p bioprosthetic aortic valve replacement in 2008 with a 21 mm C-E Magna pericardial valve -s/p valve in valve TAVR using a 20 mm Enoch Ultra S3 transcatheter heart valve on 01/13/22, Severe MV stenosis, Pulm HTN, Combined Heart failure, Mod-Severe MR, elevated RVSP on recent TTE. She was recently seen in cardiology clinic and given her worsening SOB along with weigh gain with elevated pressure on TTE, she presents today for her scheduled procedure. Past Medical History She has a past medical history of Diabetes mellitus (CMS/HCC) and Hypertension. Surgical History She has a past surgical history that includes Humerus surgery (Left). Social History She reports that she has never smoked. She has never used smokeless tobacco. She reports that she does not drink alcohol. No history on file for drug use. Family History Family History Family history unknown: Yes Allergies Codeine, Hydrocodone-acetamin ophen, Hydroxychloroquine, and Sulfamethoxazole-tri methoprim Medications Medications Prior to Admission Medication Sig Dispense Refill Last Dose amLODIPine (Norvasc) 10 mg tablet Take 10 mg by mouth in the morning. 07/15/2023 aspirin 81 mg EC tablet TAKE 1 TABLET BY MOUTH IN THE MORNING 90 tablet 3 07/15/2023 dapagliflozin propanediol (Farxiga) 10 mg Take 1 tablet (10 mg) by mouth in the morning. 30 tablet 11 07/15/2023 furosemide (Lasix) 20 mg tablet Take 1 tablet (20 mg) by mouth in the morning. (Patient taking differently: Take 40 mg by mouth in the morning and at bedtime.) 90 tablet 3 07/15/2023 insulin detemir (Levemir U-100 Insulin) 100 unit/mL injection Levemir U-100 Insulin 100 unit/mL subcutaneous solution INJECT 35 UNITS SUBCUTANEOUSLY ONCE A DAY 07/14/2023 metoprolol succinate XL (Toprol-XL) 25 mg 24 hr tablet Take 1 tablet (25 mg) by mouth in the morning. 90 tablet 3 07/15/2023 potassium chloride CR (K-Tab) 20 mEq ER tablet Take 20 mEq by mouth in the morning. 07/15/2023 sodium bicarbonate 650 mg tablet Take 1,300 tablets by mouth in the morning and at bedtime. 07/15/2023 Review of Systems Respiratory: Positive for shortness of breath. All other systems reviewed and are negative. Last Recorded Vitals Visit Vitals OB Status Postmenopausal Smoking Status Never Physical Exam Constitutional: Appearance: Normal appearance. Without apparent distress, Chronically ill HENT: Head: Normocephalic and atraumatic. Nose: Nose normal. Mouth/Throat: Mouth: Mucous membranes are moist. Eyes: Extraocular Movements: Extraocular movements intact. Conjunctiva/sclera: Conjunctivae normal. Neck: Vascular: No JVD. Cardiovascular: Rate and Rhythm: Normal rate and regular rhythm. Pulses: Dorsalis pedis pulses are 2 on the right side and 2on the left side. Posterior tibial pulses are 2 on the right side and 2 on the left side. Heart sounds: RUSB systolic Murmur 2/6, S1 normal and S2 normal. Pulmonary: Effort: Pulmonary effort is normal. Breath sounds: Normal breath sounds. Abdominal: General: Bowel sounds are normal. Palpations: Abdomen is soft. Musculoskeletal: General: Normal range of motion. Cervical back: Normal range of motion. Right lower le+ edema. Left lower le+ edema. Skin: General: Skin is warm and dry. Capillary Refill: Capillary refill takes less than 2 seconds. Neurological: General: No focal deficit present. Mental Status: She is alert and oriented to person, place, and time. Psychiatric: Mood and Affect: Mood normal. Behavior: Behavior normal. Thought Content: Thought content normal. Judgment: Judgment normal. Relevant Lab Results Lab Results Component Value Date CO2 22 05/16/2022 BUN 41 07/12/2023 CALCIUM 8.6 07/12/2023 EGFR 39 (A) 05/16/2022 Relevant Imaging Results XR humerus left Narrative: XR HUMERUS LEFT HISTORY: Left arm surgery, follow-up COMPARISON: Humerus radiographs 06/25/2022 TECHNIQUE: AP and lateral views obtained. Impression: FINDINGS/IMPRESSION: *Redemonstrated plate/screw fixation of comminuted proximal left mid shaft humeral fracture which shows ongoing, incomplete healing and callus formation. No hardware complication. Approved by:Danilo Monroy07/27/2022 11:57 AM. I, Malachi Banks,have reviewed the image(s) and agree with the findings in this report. Electronically signed: Malachi Banks. Assessment/Plan Active Problems: Chronic combined systolic and diastolic heart failure, NYHA class 2 (CMS/HCC) Pulmonary hypertension (CMS/HCC) Severe aortic stenosis Eliz Hewitt is a 87 y.o. female here for Coronary Artery Disease, Congestive Heart Failure, Valve Disorder, and Hypertension Aortic valve stenosis-s/p bioprosthetic aortic valve replacement in 2008 with a 21 mm C-E Magna per (more content not included)... [facility] NURSNOTEon 07-15-[address] Pantoja patient can discharge at 12 noon [facility] NURSNOTE Discharge instructions covered with patient. Denies any questions or concerns. After visit summary provided with new script for Sildelafil and follow up appt. Normal [facility] Orders Onlyon 07-08-2023 Orders Only [id number] Eliz Hewitt 1935 F Date Provider Department Center 07/08/2023 ALICIA HARDY [facility] Family History Family history unknown: Yes Normal [facility] 29on 06-07-2023 29 Addended by: PRAVEENA DEL ANGEL on: 06/09/2023 09:04 AM Modules accepted: Orders, Level of Service Normal [facility] Office Visiton 06-07-2023 Follow-up visit [id number] Kayce Hewittta Rio 1935 F Date Provider Department Center 06/07/2023 PRAVEENA [facility] Family History Family history unknown: Yes Level of Service:74957 [place] OFFICE/OUTPATIENT ESTABLISHED MOD MDM 30-[address] [facility] Documentationon 06-04-2023 Documentation [id number] Kayce Hewittta Rio 1935 F Date Provider Department Center 06/04/2023 120PRAVEENA KRUSE [facility] St. Family History Family history unknown: Yes Normal [facility] Orders Onlyon 06-04-2023 Orders Only [id number] Kayce Hewittta [place] 1935 Date Provider Department Center 06/04/2023 [facility] Family History Family history unknown: Yes Normal [facility] Office Visiton 01-29-2023 Follow-up visit [id number] Eliz Hewitt 1935 F Date Provider Department Center 01/29/2023 120PRAVEENA KRUSE [facility] Family History Family history unknown: Yes Level of Service:30557 [place] OFFICE/OUTPATIENT ESTABLISHED MOD MDM 30-39 MIN Reason for Visit and Comments: Coronary Artery Disease [187] Congestive Heart Failure [127] Valve Disorder [3372] Hypertension [806318] Normal [facility] ECHOCARDIO M/2D COMPLETEon 0 01-14-2023 ECHOCARDIO M/2D COMPLETE Patient: ELIZ HEWITTArpit Exam Date: 01/14/2023 : 1935 Gender:F Ordering : DR TANISHA ARELLANO M.D. Admission #: [id number] Family : DR YOKO HELMS M.D. Order #: [id number] CLICK HERE TO VIEW EXAM ECHOCARDIOGRAM REPORT PROCEDURE: CARDIO PULMONARY ECHOCARDIO M/2D COMP INDICATIONS: Mitral valve and Aortic valve stenosis, aortic valve replacement, hypertension, diabetes COMPARISON: None. DESCRIPTION: COMPLETE ECHOCARDIOGRAM Real-time transthoracic echocardiography with 2D, M-mode, spectral and color flow Doppler performed. QUALITY: Technical quality was good. LEFT VENTRICLE: Normal chamber size. Moderately increased left ventricular wall thickness. LV EF: Global left ventricular systolic function is hyperdynamic; visually estimated ejection fraction 65 to 70%. No significant wall motion abnormalities. DIASTOLIC: Unable to be assessed due to severe mitral valve disease. ATRIAL SEPTUM: Visually appears intact. LEFT ATRIUM: Severe dilatation. RIGHT ATRIUM: Moderate dilatation. RIGHT VENTRICLE: Mild dilatation. Decreased right ventricular systolic function. TRICUSPID VALVE: Normal mobility and thickness. Moderate to severe regurgitation. Doppler studies reveal severely (>60) elevated right sided pressures. RVSP 89 mmHg MITRAL VALVE: Severely thickened, calcific with decreased mobility. Severe mitral valve stenosis. Mean gradient 15 mmHg at heart rate of 56 bpm. Severe mitral annular calcification. Severe mitral regurgitation. AORTIC VALVE: Bio-Prosthetic valve appears well seated in the aortic position with normal Doppler flow. No aortic regurgitation. AORTIC ROOT: Normal diameter and appearance. PULMONIC VALVE: Normal thickness and mobility. Moderate regurgitation. PERICARDIUM: No evidence of pericardial effusion. IVC: Not well visualized. CONCLUSION: 1. Global left ventricular systolic function is hyperdynamic; visually estimated ejection fraction 65 to 70%. 2. Moderately increased left ventricular wall thickness. 3. Unable to assess diastolic function. 4. Moderate to severe biatrial enlargement. 5. The right ventricle appears dilated with decreased systolic function. 6. Moderate to severe tricuspid regurgitation. 7. Severely elevated right-sided pressures; RVSP 89 mmHg. 8. Severe mitral valve stenosis. Severe mitral regurgitation. 9. A bioprosthetic aortic valve is seen with normal Doppler flows. 10. Moderate pulmonic regurgitation. Adult Echocardiography Procedure Report Left Ventricle LVEDD (3.7 - 5.6 cm): 3.32 cm LVESD (2.2 - 4.0 cm): 2.00 cm LVIVS thickness (0.6 - 1.2 cm): 1.59 cm LVPW thickness (0.5 - 1.0 cm): 1.09 cm e': 0.05 m/s LVOT Max Gradient: 4.33 mm[Hg] Peak Velocity (LVOT): 1.04 m/s Mean Velocity (LVOT): 0.75 m/s LVOT Diameter 1.18 cm Left Ventricular Ejection Fraction: 71.51 %, 71.51 % Left Atrium LA Volume Index (2D A2C): 116.07 ml, 116.07 ml Left Atrium Systolic Dimension: 4.91 cm Mitral Valve Right Ventricle Aorta AO Root Diam: 3.17 cm Aortic Valve AoV Area (Peak Maday): 0.37 cm2, 0.37 cm2 AoV Area (VTI): 0.49 cm2, 0.49 cm2 Peak Velocity(Antegrade Flow): 3.06 m/s Peak Gradient(Antegrade Flow): 37.52 mm[Hg] Mean Velocity(Antegrade Flow): 2.02 m/s Mean Gradient(Antegrade Flow): 18.75 mm[Hg] Velocity Time Integral: 68.09 cm Tricuspid Valve Peak Velocity (Regurgitant Flow): 4.13 m/s, 4.31 m/s Peak Velocity: 0.43 m/s Pulmonic Valve Peak Velocity: 1.07 m/s, 0.99 m/s Peak Gradient: 4.58 mm[Hg], 3.96 mm[Hg] Right Atrium Right Atrium Systolic Pressure: 47.23 ml, 47.23 ml Dictated by: Albina Brower M.D. on 01/14/2023 at 15:13 Approved by: Albina Brower M.D. on 01/14/2023 at 15:23 Normal [facility] XR hand LT min 3V*on 023 XR hand LT min 3V* [facility] Main [address] [address] XRay Report Signed Patient: Eliz Hewitt MR#: [id number] : 1935 Acct:[id number] Age/Sex: 87 / F ADM Date: 11/30/22 Loc: [facility] Room: Type: REG CLI Attending Dr: Asad Pollard DO Copies to: Asad Pollard DO Ordering Provider: Asad Pollard DO Date of Service: 11/30/22 XR/XR hand LT min 3V*: Closed displaced fracture of neck of fourth metacarpal bone LEFT HAND - 3 views REASON FOR EXAM: Follow-up closed displaced fracture of the neck of the fourth metacarpal bone of the left hand. COMPARISON: Left hand 10/26/2022. FINDINGS: Bones are grossly demineralized. Fourth metacarpal fracture is grossly unchanged in alignment with minimal healing response since the prior study. No significant change in the base of the proximal phalanx of the second digit fracture. Degenerative changes are noted, worse at the CMC joint of the thumb. XR/XR hand LT min 3V* IMPRESSION: NO SIGNIFICANT CHANGE IN FOURTH METACARPAL OR PROXIMAL PHALANX SECOND DIGIT FRACTURE FINDINGS. Impression dictated by: Randy Vickers Jr., D.OArpit11/30/2022 4:04 PM Dictation Location: [place] [address] Transcribed By: [facility] 11/30/22 1604 Dictated By: Randy Vickers Jr, DO 11/30/22 1602 Signed By: 11/30/22 1604 Normal [facility] XR hand LT min 3V* [facility] Other XR hand LT min 3V* [facility] [employer] Other XR hand LT min 3V* [address] [place] [address] [employer] Other XR hand LT min 3V* [place] [address] [employer] Other XR hand LT min 3V* XRay Report [employer] Other XR hand LT min 3V* Signed [employer] Other XR hand LT min 3V* Patient: Eliz Hewitt MR#: [id number] [employer] Other XR hand LT min 3V* 5804 [employer] Other XR hand LT min 3V* : 1935 Acct:[id number] [employer] Other XR hand LT min 3V* Age/Sex: 87 / F ADM Date: 11/30/22 [employer] Other XR hand LT min 3V* Loc: [facility] Room: Type: [facility] [employer] Other XR hand LT min 3V* Attending Dr: Asad Pollard DO [employer] Other XR hand LT min 3V* Copies to: Asad Pollard DO [employer] Other XR hand LT min 3V* Ordering Provider: Asad Pollard DO [employer] Other XR hand LT min 3V* Date of Service: 11/30/22 [employer] Other XR hand LT min 3V* XR/XR hand LT min 3V*: Closed displaced fracture of neck of fourth [employer] Other XR hand LT min 3V* metacarpal bone [facility] [employer] Other XR hand LT min 3V* LEFT HAND - 3 views [employer] Other XR hand LT min 3V* REASON FOR EXAM: Follow-up closed displaced fracture of the neck of the fourth metacarpal bone of [employer] Other XR hand LT min 3V* the left hand. No rt [employer] Other XR hand LT min 3V* COMPARISON: Left hand 10/26/2022. [employer] Other XR hand LT min 3V* FINDINGS: [employer] Other XR hand LT min 3V* Bones are grossly demineralized. Fourth metacarpal fracture is grossly unchanged in alignment with [employer] Other XR hand LT min 3V* minimal healing response since the prior study. No significant change in the base of the proximal [employer] Other XR hand LT min 3V* phalanx of the second digit fracture. Degenerative changes are noted, worse at the CMC joint of the [employer] Other XR hand LT min 3V* thumb. [employer] Other XR hand LT min 3V* XR/XR hand LT min 3V* [employer] Other XR hand LT min 3V* IMPRESSION: [employer] Other XR hand LT min 3V* NO SIGNIFICANT CHANGE IN FOURTH METACARPAL OR PROXIMAL PHALANX SECOND DIGIT FRACTURE FINDINGS. [employer] Other XR hand LT min 3V* Impression dictated by: Randy Vickers Jr., D.OArpit11/30/2022 4:04 PM [place] [employer] Other XR hand LT min 3V* Dictation Location: [place] [address] [employer] Other XR hand LT min 3V* Transcribed By: PWS 11/30/22 1604 [place] [employer] Other XR hand LT min 3V* Dictated By: Ranyd Vickers Jr, DO 11/30/22 1602 [place] [employer] Other XR hand LT min 3V* Signed By: [place] [employer] Other XR hand LT min 3V* 11/30/[address] [facility] [employer] Other CBC AUTO DIFFon 11-18-2022 BASO # 0.0 103/ul Normal 0.0-0.1 [facility] Comment on above: Performed By: #### C BC #### [facility] [address] [address] [address] Adan Rinaldi Basophils/100 WBC (Bld) 0.7 % Normal 0.2-2.0 [facility] Comment on above: Performed By: #### C BC #### [facility] [address] [place] [address] Dr. Adan Rinaldi EO # 0.3 103/ul Normal 0.0-0.7 [facility] Comment on above: Performed By: #### C BC #### [facility] [address] [place] [address] Dr. Adan Rinaldi Eosinophils/100 WBC (Bld) 5.7 % Normal 0.9-7.0 [facility] Comment on above: Performed By: #### C BC #### [facility] [address] [place] [address] Dr. Adan Rinaldi Erythrocyte distribution width (RBC) [Ratio] 15.4 % Critically high 11.0-15.0 [facility] Comment on above: Performed By: #### C BC #### [facility] [address] [place] [address] Dr. Adan Rinaldi Hematocrit (Bld) [Volume fraction] 30.2 % Critically low 36.0-48.0 [facility] Comment on above: Performed By: #### C BC #### [facility] [address] [place] [address] Dr. Adan Rinaldi Hemoglobin (Bld) [Mass/Vol] 9.8 g/dL Critically low 12.0-16.0 [facility] Comment on above: Performed By: #### C BC #### [facility] [address] [place] [address] Dr. Adan Rinaldi IG # 0.01 10e3/ul Normal 0.00-0.03 [facility] Comment on above: Performed By: #### C BC #### [facility] [address] [place] [address] Dr. Adan Rinaldi IG % 0.2 % Normal 0.0-0.5 [facility] Comment on above: Performed By: #### C BC #### [facility] [address] [place] [address] Dr. Adan Rinaldi LYMPH # 1.4 103/ul Normal 1.2-3.8 [facility] Comment on above: Performed By: #### C BC #### [facility] [address] [place] [address] Dr. Adan Rinaldi Lymphocytes/100 WBC (Bld) 25.0 % Normal 20.5-60.0 [facility] Comment on above: Performed By: #### C BC #### [facility] [address] [place] [address] Dr. Adan Rinaldi MANUAL DIFF REQ NO Normal [facility] Comment on above: Performed By: #### C BC #### [facility] [address] [place] [address] Dr. Adan Rinaldi MCH (RBC) [Entitic mass] 29.0 pg Normal 26.7-34.0 [facility] Comment on above: Performed By: #### C BC #### [facility] [address] [place] [address] Dr. Adan Rinaldi MCHC (RBC) [Mass/Vol] 32.5 g/dL Normal 29.9-35.2 [facility] Comment on above: Performed By: #### C BC #### [facility] [address] [place] [address] Dr. Adan Rinaldi MCV (RBC) [Entitic vol] 89.3 fL Normal 81.0-99.0 [facility] Comment on above: Performed By: #### C BC #### [facility] [address] [place] [address] Dr. Adan Rinaldi MONO # 0.6 103/ul Normal 0.3-0.8 [facility] Comment on above: Performed By: #### C BC #### [facility] [address] [place] [address] Dr. Adan Rinaldi Monocytes/100 WBC (Bld) 11.4 % Normal 1.7-12.0 [facility] Comment on above: Performed By: #### C BC #### [facility] [address] [place] [address] Dr. Adan Rinaldi NEUT # 3.1 103/ul Normal 1.4-6.5 [facility] Comment on above: Performed By: #### C BC #### [facility] [address] [place] [address] Dr. Adan Rinaldi Neutrophils/100 WBC (Bld) 57.0 % Normal 43.0-75.0 [facility] Comment on above: Performed By: #### C BC #### [facility] [address] [address] [address] dAan Rinaldi Platelet mean volume (Bld) [Entitic vol] 9.6 fL Normal 9.5-13.5 [facility] Comment on above: Performed By: #### C BC #### [facility] [address] [place] [address] Dr. Adan Rinaldi PLT 237 103/ul Normal 150-450 [facility] Comment on above: Performed By: #### C BC #### [facility] [address] [address] [address] Adan Rinaldi RBC 3.38 106/ul Critically low 4.20-5.40 [facility] Comment on above: Performed By: #### C BC #### [facility] [address] [place] [address] Dr. Adan Rinaldi WBC 5.5 103/ul Normal 4.0-11.0 [facility] Comment on above: Performed By: #### C BC #### [facility] [address] [place] [address] Dr. Adan Rinaldi GLYCOHEMOGLOBIN A1Con 2022 ADA RECOMMENDATION SEE BELOW Normal [facility] Comment on above: Result Comment: ADA RECOMMENDED LIMIT 4.0 - 6.0 ADA THERAPEUTIC TARGET < 7.0 ACTION SUGGESTED > 7.0 Performed By: #### C VDTBH #### [facility] [address] [place] [address] Dr. Adan Rinaldi Glucose [Mass/Vol] 140 mg/dL Normal [facility] Comment on above: Performed By: #### C VDTBH #### [facility] [address] [place] [address] Dr. Adan Rinaldi HbA1c (Bld) [Mass fraction] 6.5 % Critically high 4.5-6.2 [facility] Comment on above: Performed By: #### C VDTBH #### [facility] [address] [address] [address] Adan Rinaldi PROF CHEM 8 (BAS METB)on Anion gap [Moles/Vol] 11.1 mmol/L Normal [facility] Comment on above: Performed By: #### C BC #### [facility] [address] [address] [address] Adan Rinaldi Calcium [Mass/Vol] 9.0 mg/dL Normal 8.5-10.1 [facility] Comment on above: Performed By: #### C BC #### [facility] [address] [address] [address] Adan Rinaldi Chloride [Moles/Vol] 101 mmol/L Normal 98-107 [facility] Comment on above: Performed By: #### C BC #### [facility] [address] [place] [address] Dr. Adan Rinaldi CO2 [Moles/Vol] 30.3 mmol/L Normal 21.0-32.0 [facility] Comment on above: Performed By: #### C BC #### [facility] [address] [place] [address] Dr. Adan Rinaldi Creatinine [Mass/Vol] 1.42 mg/dL Critically high 0.55-1.02 [facility] Comment on above: Performed By: #### C BC #### [facility] [address] [place] [address] Dr. Adan Rinaldi EGFR-AF MARSHALLESE 43 mL/min/1.73m2 Critically low >=60 [facility] Comment on above: Performed By: #### C BC #### [facility] [address] [address] [address] Adan Rinaldi EGFR-NON AF MARSHALLESE 35 mL/min/1.73m2 Critically low >=60 [facility] Comment on above: Performed By: #### C BC #### [facility] [address] [address] [address] Adan Rinaldi Glucose [Mass/Vol] 193 mg/dL Critically high 74-106 [facility] Comment on above: Performed By: #### C BC #### [facility] [facility] [address] [address] [address] Adan Rinaldi Potassium [Moles/Vol] 4.4 mmol/L Normal 3.5-5.1 [facility] Comment on above: Performed By: #### C BC #### [facility] [address] [address] [address] Adan Rinaldi Sodium [Moles/Vol] 138 mmol/L Normal 136-145 [facility] Comment on above: Performed By: #### C BC #### [facility] [address] [address] [address] Adan Rinaldi Urea nitrogen [Mass/Vol] 35.0 mg/dL Critically high 7.0-18.0 [facility] Comment on above: Performed By: #### C BC #### [facility] [address] [address] [address] Adan Rinaldi Urea nitrogen/Creatinine [Mass ratio] 24.6 mg/mg Normal [facility] Comment on above: Performed By: #### C BC #### [facility] [address] [address] [address] Adan Rinaldi XR hand LT min 3V*on 023 XR hand LT min 3V* [facility] [address] XRay Report Signed Patient: Eliz Hewitt MR#: [id number] : 1935 Acct:[id number] Age/Sex: 86 / F ADM Date: 10/26/22 Loc: [facility] Room: Type: [facility] Attending Dr: Asad Pollard DO Copies to: Asad Pollard DO Ordering Provider: Asad Pollard DO Date of Service: 10/26/22 XR/XR hand LT min 3V*: Left hand pain XR hand LT min 3V* 10/26/2022 2:05 PM SIGNS AND SYMPTOMS: Right fourth metacarpal fracture, follow-up PROTOCOL: Frontal, lateral, and oblique radiographs of the right hand COMPARISON: 09/19/2022 FINDINGS: There is an obliquely oriented fracture of the fourth metacarpal along the distal shaft which is mildly displaced. There is no change in alignment. There is a fracture at the base of the second proximal phalanx with intra-articular extension which is unchanged. There is diffuse soft tissue swelling which is similar to the prior exams. Degenerative changes are noted throughout the distal interphalangeal joints and at the first carpal metacarpal junction. There is diffuse osteopenia. XR/XR hand LT min 3V* IMPRESSION: There is an obliquely oriented fracture of the fourth metacarpal along the distal shaft which is mildly displaced. There is no change in alignment. There is a fracture at the base of the second proximal phalanx with intra-articular extension which is unchanged. Degenerative changes are redemonstrated, as above. Impression dictated by: Abram Baltazar M.D.10/26/2022 4:20 PM Dictation Location: [place] [address] Transcribed By: [facility] 10/26/22 1620 Dictated By: Abram Baltazar II, MD 10/26/22 1603 Signed By: 10/26/22 1620 Normal [facility] XR hand LT min 3V* [facility] Other XR hand LT min 3V* [facility] Other XR hand LT min 3V* [address] [facility] Other XR hand LT min 3V* [place] [address] [facility] Other XR hand LT min 3V* XRay Report [employer] Other XR hand LT min 3V* Signed [employer] Other XR hand LT min 3V* Patient: Eliz Hewitt MR#: [id number] [employer] Other XR hand LT min 3V* 5804 [employer] Other XR hand LT min 3V* : 1935 Acct:[id number] [employer] Other XR hand LT min 3V* Age/Sex: 86 / F ADM Date: 10/26/22 [employer] Other XR hand LT min 3V* Loc: [facility] Room: Type: REG CLI [employer] Other XR hand LT min 3V* Attending Dr: Asad Pollard DO [employer] Other XR hand LT min 3V* Copies to: Asad Pollard DO [employer] Other XR hand LT min 3V* Ordering Provider: Asad Pollard DO [employer] Other XR hand LT min 3V* Date of Service: 10/26/22 [employer] Other XR hand LT min 3V* XR/XR hand LT min 3V*: Left hand pain [employer] Other XR hand LT min 3V* XR hand LT min 3V* 10/26/2022 2:05 PM [employer] Other XR hand LT min 3V* SIGNS AND SYMPTOMS: Right fourth metacarpal fracture, follow-up [employer] Other XR hand LT min 3V* PROTOCOL: Frontal, lateral, and oblique radiographs of the right hand [employer] Other XR hand LT min 3V* COMPARISON: 09/19/2022 [employer] Other XR hand LT min 3V* FINDINGS: [employer] Other XR hand LT min 3V* There is an obliquely oriented fracture of the fourth metacarpal along the distal shaft which is [employer] Other XR hand LT min 3V* mildly displaced. There is no change in alignment. There is a fracture at the base of the second [employer] Other XR hand LT min 3V* proximal phalanx with intra-articular extension which is unchanged. There is diffuse soft tissue [employer] Other XR hand LT min 3V* swelling which is similar to the prior exams. Degenerative changes are noted throughout the distal [employer] Other XR hand LT min 3V* interphalangeal joints and at the first carpal metacarpal junction. There is diffuse osteopenia. [employer] Other XR hand LT min 3V* XR/XR hand LT min 3V* [employer] Other XR hand LT min 3V* IMPRESSION: [employer] Other XR hand LT min 3V* mildly displaced. There is no change in alignment. [employer] Other XR hand LT min 3V* There is a fracture at the base of the second proximal phalanx with intra-articular extension which [employer] Other XR hand LT min 3V* is unchanged. [facility] [employer] Other XR hand LT min 3V* Degenerative changes are redemonstrated, as above. [employer] Other XR hand LT min 3V* Impression dictated by: Abram Baltazar M.D.10/26/2022 4:20 PM [employer] Other XR hand LT min 3V* Dictation Location: [place] [address] [employer] Other XR hand LT min 3V* Transcribed By: YOU 10/26/22 1620 [employer] Other XR hand LT min 3V* Dictated By: Abram Baltazar II, MD 10/26/22 1603 [employer] Other XR hand LT min 3V* Signed By: [employer] Other XR hand LT min 3V* 10/26/[address] [facility] [employer] Other CBC AUTO DIFFon 10-05-2022 BASO # 0.1 103/ul Normal 0.0-0.1 [facility] Comment on above: Performed By: #### C BC #### [facility] [address] [address] [address] Adan Rinaldi Basophils/100 WBC (Bld) 0.7 % Normal 0.2-2.0 [facility] Comment on above: Performed By: #### C BC #### [facility] [address] [address] [address] Adan Rinaldi EO # 0.4 103/ul Normal 0.0-0.7 [facility] Comment on above: Performed By: #### C BC #### [facility] [address] [place] [address] Dr. Adan Rinaldi Eosinophils/100 WBC (Bld) 4.3 % Normal 0.9-7.0 [facility] Comment on above: Performed By: #### C BC #### [facility] [address] [place] [address] Dr. Adan Rinaldi Erythrocyte distribution width (RBC) [Ratio] 13.9 % Normal 11.0-15.0 [facility] Comment on above: Performed By: #### C BC #### [facility] [address] [place] [address] Dr. Adan Rinaldi Hematocrit (Bld) [Volume fraction] 25.9 % Critically low 36.0-48.0 [facility] Comment on above: Performed By: #### C BC #### [facility] [address] [place] [address] Dr. Adan Rinaldi Hemoglobin (Bld) [Mass/Vol] 8.4 g/dL Critically low 12.0-16.0 [facility] Comment on above: Performed By: #### C BC #### [facility] [address] [place] [address] Dr. Adan Rinaldi IG # 0.04 10e3/ul Critically high 0.00-0.03 [facility] Comment on above: Performed By: #### C BC #### [facility] [address] [place] [address] Dr. Adan Rinaldi IG % 0.5 % Normal 0.0-0.5 [facility] Comment on above: Performed By: #### C BC #### [facility] [address] [place] [address] Dr. Adan Rinaldi LYMPH # 0.8 103/ul Critically low 1.2-3.8 [facility] Comment on above: Performed By: #### C BC #### [facility] [address] [address] [address] Adan Rinaldi Lymphocytes/100 WBC (Bld) 9.6 % Critically low 20.5-60.0 [facility] Comment on above: Performed By: #### C BC #### [facility] [address] [place] [address] Dr. Adan Rinaldi MANUAL DIFF REQ NO Normal [facility] Comment on above: Performed By: #### C BC #### [facility] [address] [place] [address] Dr. Adan Rinaldi MCH (RBC) [Entitic mass] 28.7 pg Normal 26.7-34.0 [facility] Comment on above: Performed By: #### C BC #### [facility] [address] [place] [address] Dr. Adan Rinaldi MCHC (RBC) [Mass/Vol] 32.4 g/dL Normal 29.9-35.2 [facility] Comment on above: Performed By: #### C BC #### [facility] [address] [place] [address] Dr. Adan Rinaldi MCV (RBC) [Entitic vol] 88.4 fL Normal 81.0-99.0 [facility] Comment on above: Performed By: #### C BC #### [facility] [address] [place] [address] Dr. Adan Rinaldi MONO # 0.7 103/ul Normal 0.3-0.8 [facility] Comment on above: Performed By: #### C BC #### [facility] [address] [place] [address] Dr. Adan Rinaldi Monocytes/100 WBC (Bld) 8.0 % Normal 1.7-12.0 [facility] Comment on above: Performed By: #### C BC #### [facility] [address] [address] [address] Adan Rinaldi NEUT # 6.6 103/ul Critically high 1.4-6.5 [facility] Comment on above: Performed By: #### C BC #### [facility] [address] [address] [address] Adan Rinaldi Neutrophils/100 WBC (Bld) 76.9 % Critically high 43.0-75.0 [facility] Comment on above: Performed By: #### C BC #### [facility] [address] [address] [address] Adan Rinaldi Platelet mean volume (Bld) [Entitic vol] 9.1 fL Critically low 9.5-13.5 [facility] Comment on above: Performed By: #### C BC #### [facility] [address] [address] [address] Adan Rinaldi PLT 407 103/ul Normal 150-450 [facility] Comment on above: Performed By: #### C BC #### [facility] [address] [address] [address] Adan Rinaldi RBC 2.93 106/ul Critically low 4.20-5.40 [facility] Comment on above: Performed By: #### C BC #### [facility] [address] [address] [address] Adan Rinaldi WBC 8.6 103/ul Normal 4.0-11.0 [facility] Comment on above: Performed By: #### C BC #### [facility] [address] [address] [address] Adan Rinaldi POINT OF CARE GLUCOSEon 09-20 Glucose [Mass/Vol] 328 mg/dL Critically high 74-106 [facility] Comment on above: Performed By: #### P OCGLUC #### [facility] [address] [address] [address] Adan Rinaldi Glucose [Mass/Vol] 265 mg/dL Critically high 74-106 [facility] Comment on above: Performed By: #### P OCGLUC #### [facility] [address] [address] [address] Adan Rinaldi PROF 14(COMP METB)on 023 Albumin [Mass/Vol] 2.3 g/dL Critically low 3.4-5.0 [facility] Comment on above: Performed By: #### P OCGLUC #### [facility] [address] [address] [address] Adan Rinaldi Albumin/Globulin [Mass ratio] 0.5 {ratio} Normal [facility] Comment on above: Performed By: #### P OCGLUC #### [facility] [address] [address] [address] Adan Rinaldi ALP [Catalytic activity/Vol] 84 U/L Normal 46-116 [facility] Comment on above: Performed By: #### P OCGLUC #### [facility] [address] [address] [address] Adan Rinaldi ALT [Catalytic activity/Vol] 16 U/L Normal 14-59 [facility] Comment on above: Performed By: #### P OCGLUC #### [facility] [address] [address] [address] Adan Rinaldi Anion gap [Moles/Vol] 11.7 mmol/L Normal [facility] Comment on above: Performed By: #### P OCGLUC #### [facility] [address] [address] [address] Adan Rinaldi AST [Catalytic activity/Vol] 24 U/L Normal 15-37 [facility] Comment on above: Performed By: #### P OCGLUC #### [facility] [address] [address] [address] Adan Rinaldi Bilirubin [Mass/Vol] 0.5 mg/dL Normal 0.2-1.0 [facility] Comment on above: Performed By: #### P OCGLUC #### [facility] [address] [place] [address] Dr. Adan Rinaldi Calcium [Mass/Vol] 8.5 mg/dL Normal 8.5-10.1 [facility] Comment on above: Performed By: #### P OCGLUC #### [facility] [address] [address] [address] Adan Rinaldi Chloride [Moles/Vol] 96 mmol/L Critically low 98-107 [facility] Comment on above: Performed By: #### P OCGLUC #### [facility] [address] [address] [address] Adan Rinaldi CO2 [Moles/Vol] 27.2 mmol/L Normal 21.0-32.0 [facility] Comment on above: Performed By: #### P OCGLUC #### [facility] [address] [address] [address] Adan Rinaldi Creatinine [Mass/Vol] 1.37 mg/dL Critically high 0.55-1.02 [facility] Comment on above: Performed By: #### P OCGLUC #### [facility] [address] [address] [address] Adan Rinaldi EGFR-AF MARSHALLESE 44 mL/min/1.73m2 Critically low >=60 [facility] Comment on above: Performed By: #### P OCGLUC #### [facility] [address] [address] [address] Adan Rinaldi EGFR-NON AF MARSHALLESE 37 mL/min/1.73m2 Critically low >=60 [facility] Comment on above: Performed By: #### P OCGLUC #### [facility] [address] [address] [address] Adan Rinaldi Globulin (S) [Mass/Vol] 4.6 g/dL Normal [facility] Comment on above: Performed By: #### P OCGLUC #### [facility] [address] [address] [address] Adan Rinaldi Glucose [Mass/Vol] 276 mg/dL Critically high 74-106 [facility] Comment on above: Performed By: #### P OCGLUC #### [facility] [address] [address] [address] Adan Rinaldi Potassium [Moles/Vol] 3.9 mmol/L Normal 3.5-5.1 [facility] Comment on above: Performed By: #### P OCGLUC #### [facility] [address] [address] [address] Adan Rinaldi Protein [Mass/Vol] 6.9 g/dL Normal 6.4-8.2 [facility] Comment on above: Performed By: #### P OCGLUC #### [facility] [address] [address] [address] Adan Rinaldi Sodium [Moles/Vol] 131 mmol/L Critically low 136-145 [facility] Comment on above: Performed By: #### P OCGLUC #### [facility] [address] [place] [address] Dr. Adan Rinaldi Urea nitrogen [Mass/Vol] 19.0 mg/dL Critically high 7.0-18.0 [facility] Comment on above: Performed By: #### P OCGLUC #### [facility] [address] [place] [address] Dr. Adan Rinaldi Urea nitrogen/Creatinine [Mass ratio] 13.9 mg/mg Normal [facility] Comment on above: Performed By: #### P OCGLUC #### [facility] [address] [place] [address] Dr. Adan Rinaldi CBC AUTO DIFFon 10-04-2022 BASO # 0.1 103/ul Normal 0.0-0.1 [facility] Comment on above: Performed By: #### C VDTBH #### [facility] [address] [place] [address] Dr. Adan Rinaldi Basophils/100 WBC (Bld) 0.8 % Normal 0.2-2.0 [facility] Comment on above: Performed By: #### C VDTBH #### [facility] [address] [place] [address] Dr. Adan Rinaldi EO # 0.1 103/ul Normal 0.0-0.7 [facility] Comment on above: Performed By: #### C VDTBH #### [facility] [address] [place] [address] Dr. Adan Rinaldi Eosinophils/100 WBC (Bld) 0.9 % Normal 0.9-7.0 [facility] Comment on above: Performed By: #### C VDTBH #### [facility] [address] [place] [address] Dr. Adan Rinaldi Erythrocyte distribution width (RBC) [Ratio] 14.1 % Normal 11.0-15.0 [facility] Comment on above: Performed By: #### C VDTBH #### [facility] [address] [place] [address] Dr. Adan Rinaldi Hematocrit (Bld) [Volume fraction] 24.3 % Critically low 36.0-48.0 [facility] Comment on above: Performed By: #### C VDTBH #### [facility] [address] [place] [address] Dr. Adan Rinaldi Hemoglobin (Bld) [Mass/Vol] 7.8 g/dL Critically low 12.0-16.0 [facility] Comment on above: Performed By: #### C VDTBH #### [facility] [address] [place] [address] Dr. Adan Rinaldi IG # 0.03 10e3/ul Normal 0.00-0.03 [facility] Comment on above: Performed By: #### C VDTBH #### [facility] [address] [place] [address] Dr. Adan Rinaldi IG % 0.5 % Normal 0.0-0.5 [facility] Comment on above: Performed By: #### C VDTBH #### [facility] [address] [place] [address] Dr. Adan Rinaldi LYMPH # 0.8 103/ul Critically low 1.2-3.8 [facility] Comment on above: Performed By: #### C VDTBH #### [facility] [address] [place] [address] Dr. Adan Rinaldi Lymphocytes/100 WBC (Bld) 12.4 % Critically low 20.5-60.0 [facility] Comment on above: Performed By: #### C VDTBH #### [facility] [address] [place] [address] Dr. Adan Rinaldi MANUAL DIFF REQ NO Normal [facility] Comment on above: Performed By: #### C VDTBH #### [facility] [address] [place] [address] Dr. Adan Rinaldi MCH (RBC) [Entitic mass] 28.6 pg Normal 26.7-34.0 [facility] Comment on above: Performed By: #### C VDTBH #### [facility] [address] [place] [address] Dr. Adan Rinaldi MCHC (RBC) [Mass/Vol] 32.1 g/dL Normal 29.9-35.2 [facility] Comment on above: Performed By: #### C VDTBH #### [facility] [address] [place] [address] Dr. Adan Rinaldi MCV (RBC) [Entitic vol] 89.0 fL Normal 81.0-99.0 [facility] Comment on above: Performed By: #### C VDTBH #### [facility] [address] [place] [address] Dr. Adan Rinaldi MONO # 0.5 103/ul Normal 0.3-0.8 [facility] Comment on above: Performed By: #### C VDTBH #### [facility] [address] [place] [address] Dr. Adan Rinaldi Monocytes/100 WBC (Bld) 8.1 % Normal 1.7-12.0 [facility] Comment on above: Performed By: #### C VDTBH #### [facility] [address] [place] [address] Dr. Adan Rinaldi NEUT # 5.1 103/ul Normal 1.4-6.5 [facility] Comment on above: Performed By: #### C VDTBH #### [facility] [address] [place] [address] Dr. Adan Rinaldi Neutrophils/100 WBC (Bld) 77.3 % Critically high 43.0-75.0 [facility] Comment on above: Performed By: #### C VDTBH #### [facility] [address] [place] [address] Dr. Adan Rinaldi Platelet mean volume (Bld) [Entitic vol] 9.2 fL Critically low 9.5-13.5 [facility] Comment on above: Performed By: #### C VDTBH #### [facility] [address] [place] [address] Dr. Adan Rinaldi PLT 379 103/ul Normal 150-450 [facility] Comment on above: Performed By: #### C VDTBH #### [facility] [address] [place] [address] Dr. Adan Rinaldi RBC 2.73 106/ul Critically low 4.20-5.40 [facility] Comment on above: Performed By: #### C VDTBH #### [facility] [address] [place] [address] Dr. Adan Rinaldi WBC 6.5 103/ul Normal 4.0-11.0 [facility] Comment on above: Performed By: #### C VDTBH #### [facility] [address] [place] [address] Dr. Adan Rinaldi LACTATE/LACTIC ACIDon 2022 Lactate [Moles/Vol] 2.2 mmol/L Critically high 0.4-1.9 [facility] Comment on above: Performed By: #### H LYNNE, BMP #### [facility] [address] [place] [address] Dr. Adan Rianldi POINT OF CARE GLUCOSEon 09-20 Glucose [Mass/Vol] 189 mg/dL Critically high 74-106 [facility] Comment on above: Performed By: #### C BC #### [facility] [address] [place] [address] Dr. Adan Rinaldi Glucose [Mass/Vol] 348 mg/dL Critically high 74-106 [facility] Comment on above: Performed By: #### C VDTBH #### [facility] [address] [place] [address] Dr. Adan Rinaldi Glucose [Mass/Vol] 263 mg/dL Critically high 74-106 [facility] Comment on above: Performed By: #### C VDTBH #### [facility] [address] [place] [address] Dr. Adan Rinaldi PROF 14(COMP METB)on 023 Albumin [Mass/Vol] 2.3 g/dL Critically low 3.4-5.0 [facility] Comment on above: Performed By: #### C VDTBH #### [facility] [address] [place] [address] Dr. Adan Rinaldi Albumin/Globulin [Mass ratio] 0.5 {ratio} Normal [facility] Comment on above: Performed By: #### C VDTBH #### [facility] [address] [place] [address] Dr. Adan Rinaldi ALP [Catalytic activity/Vol] 80 U/L Normal 46-116 [facility] Comment on above: Performed By: #### C VDTBH #### [facility] [address] [place] [address] Dr. Adan Rinaldi ALT [Catalytic activity/Vol] 17 U/L Normal 14-59 [facility] Comment on above: Performed By: #### C VDTBH #### [facility] [address] [place] [address] Dr. Adan Rinaldi Anion gap [Moles/Vol] 14.6 mmol/L Normal [facility] Comment on above: Performed By: #### C VDTBH #### [facility] [address] [place] [address] Dr. Adan Rinaldi AST [Catalytic activity/Vol] 24 U/L Normal 15-37 [facility] Comment on above: Performed By: #### C VDTBH #### [facility] [address] [place] [address] Dr. Adan Rinaldi Bilirubin [Mass/Vol] 0.4 mg/dL Normal 0.2-1.0 [facility] Comment on above: Performed By: #### C VDTBH #### [facility] [address] [place] [address] Dr. Adan Rinaldi Calcium [Mass/Vol] 8.1 mg/dL Critically low 8.5-10.1 [facility] Comment on above: Performed By: #### C VDTBH #### [facility] [address] [address] [address] Adan Rinaldi Chloride [Moles/Vol] 97 mmol/L Critically low 98-107 [facility] Comment on above: Performed By: #### C VDTBH #### [facility] [address] [address] [address] Adan Rinaldi CO2 [Moles/Vol] 25.9 mmol/L Normal 21.0-32.0 [facility] Comment on above: Performed By: #### C VDTBH #### [facility] [address] [place] [address] Dr. Adan Rinaldi Creatinine [Mass/Vol] 1.60 mg/dL Critically high 0.55-1.02 [facility] Comment on above: Performed By: #### C VDTBH #### [facility] [address] [place] [address] Dr. Adan Rinaldi EGFR-AF MARSHALLESE 37 mL/min/1.73m2 Critically low >=60 [facility] Comment on above: Performed By: #### C VDTBH #### [facility] [address] [place] [address] Dr. Adan Rinaldi EGFR-NON AF MARSHALLESE 31 mL/min/1.73m2 Critically low >=60 [facility] Comment on above: Performed By: #### C VDTBH #### [facility] [address] [place] [address] Dr. Adan Rinaldi Globulin (S) [Mass/Vol] 4.4 g/dL Normal [facility] Comment on above: Performed By: #### C VDTBH #### [facility] [address] [place] [address] Dr. Adan Rinaldi Glucose [Mass/Vol] 304 mg/dL Critically high 74-106 [facility] Comment on above: Performed By: #### C VDTBH #### [facility] [address] [place] [address] Dr. Adan Rinaldi Potassium [Moles/Vol] 3.5 mmol/L Normal 3.5-5.1 [facility] Comment on above: Performed By: #### C VDTBH #### [facility] [address] [place] [address] Dr. Adan Rinaldi Protein [Mass/Vol] 6.7 g/dL Normal 6.4-8.2 [facility] Comment on above: Performed By: #### C VDTBH #### [facility] [address] [place] [address] Dr. Adan Rinaldi Sodium [Moles/Vol] 134 mmol/L Critically low 136-145 [facility] Comment on above: Performed By: #### C VDTBH #### [facility] [address] [place] [address] Dr. Adan Rinaldi Urea nitrogen [Mass/Vol] 25.0 mg/dL Critically high 7.0-18.0 [facility] Comment on above: Performed By: #### C VDTBH #### [facility] [address] [place] [address] Dr. Adan Rinaldi Urea nitrogen/Creatinine [Mass ratio] 15.6 mg/mg Normal [facility] Comment on above: Performed By: #### C VDTBH #### [facility] [address] [place] [address] Dr. Adan Rinaldi T4on 10-04-2022 T4 [Mass/Vol] 7.80 ug/dL Normal 4.80-13.90 [facility] Comment on above: Performed By: #### P OCGLUC #### [facility] [address] [place] [address] Dr. Adan Rinaldi TSHon 10-04-2022 TSH 1.653 uIU/mL Normal 0.358-3.740 [facility] Comment on above: Performed By: #### P OCGLUC #### [facility] [address] [place] [address] Dr. Adan Rinaldi XR CHEST 2 Von 10-04-2022 XR CHEST 2 V EXAM: XR CHEST 2 V HISTORY: Cough COMPARISON: Portable chest 10/03/2022. TECHNIQUE: PA and lateral chest x-rays FINDINGS: IMPRESSION: Moderate right pleural effusion with associated patchy right lower lobe consolidation. Mild pulmonary parenchymal interstitial thickening. Left hemithorax exhibits no gross visualized irregularity. Patient is status post median sternotomy. The heart is not enlarged. Electronically authenticated by: JOBY GALLARDO Date: 2022-10-04 15:49 Normal [facility] CBC AUTO DIFFon 10-03-2022 BASO # 0.1 103/ul Normal 0.0-0.1 [facility] Comment on above: Performed By: #### C BC #### [facility] [address] [address] [address] Adan Rinaldi Basophils/100 WBC (Bld) 0.8 % Normal 0.2-2.0 [facility] Comment on above: Performed By: #### C BC #### [facility] [address] [address] [address] Adan Rinaldi EO # 0.1 103/ul Normal 0.0-0.7 [facility] Comment on above: Performed By: #### C BC #### [facility] [address] [address] [address] Adan Rinaldi Eosinophils/100 WBC (Bld) 1.8 % Normal 0.9-7.0 [facility] Comment on above: Performed By: #### C BC #### [facility] [address] [address] [address] Adan Rinaldi Erythrocyte distribution width (RBC) [Ratio] 13.6 % Normal 11.0-15.0 [facility] Comment on above: Performed By: #### C BC #### [facility] [address] [address] [address] Adan Rinaldi Hematocrit (Bld) [Volume fraction] 28.6 % Critically low 36.0-48.0 [facility] Comment on above: Performed By: #### C BC #### [facility] [address] [address] [address] Adan Rinaldi Hemoglobin (Bld) [Mass/Vol] 9.3 g/dL Critically low 12.0-16.0 [facility] Comment on above: Performed By: #### C BC #### [facility] [address] [address] [address] Adan Rinaldi IG # 0.04 10e3/ul Critically high 0.00-0.03 [facility] Comment on above: Performed By: #### C BC #### [facility] [address] [place] [address] Dr. Adan Rinaldi IG % 0.6 % Critically high 0.0-0.5 [facility] Comment on above: Performed By: #### C BC #### [facility] [address] [place] [address] Dr. Adan Rinaldi LYMPH # 0.7 103/ul Critically low 1.2-3.8 [facility] Comment on above: Performed By: #### C BC #### [facility] [address] [place] [address] Dr. Adan Rinaldi Lymphocytes/100 WBC (Bld) 10.7 % Critically low 20.5-60.0 [facility] Comment on above: Performed By: #### C BC #### [facility] [address] [place] [address] Dr. Adan Rinaldi MANUAL DIFF REQ NO Normal [facility] Comment on above: Performed By: #### C BC #### [facility] [address] [place] [address] Dr. Adan Rinaldi MCH (RBC) [Entitic mass] 28.2 pg Normal 26.7-34.0 [facility] Comment on above: Performed By: #### C BC #### [facility] [address] [place] [address] Dr. Adan Rinaldi MCHC (RBC) [Mass/Vol] 32.5 g/dL Normal 29.9-35.2 [facility] Comment on above: Performed By: #### C BC #### [facility] [address] [place] [address] Dr. Adan Rinaldi MCV (RBC) [Entitic vol] 86.7 fL Normal 81.0-99.0 [facility] Comment on above: Performed By: #### C BC #### [facility] [address] [place] [address] Dr. Adan Rinaldi MONO # 0.7 103/ul Normal 0.3-0.8 [facility] Comment on above: Performed By: #### C BC #### [facility] [address] [address] [address] Adan Rinaldi Monocytes/100 WBC (Bld) 10.1 % Normal 1.7-12.0 [facility] Comment on above: Performed By: #### C BC #### [facility] [address] [address] [address] Adan Rinaldi NEUT # 5.0 103/ul Normal 1.4-6.5 [facility] Comment on above: Performed By: #### C BC #### [facility] [address] [place] [address] Dr. Adan Rinaldi Neutrophils/100 WBC (Bld) 76.0 % Critically high 43.0-75.0 [facility] Comment on above: Performed By: #### C BC #### [facility] [address] [place] [address] Dr. Adan Rinaldi Platelet mean volume (Bld) [Entitic vol] 9.3 fL Critically low 9.5-13.5 [facility] Comment on above: Performed By: #### C BC #### [facility] [address] [place] [address] Dr. Adan Rinaldi PLT 480 103/ul Critically high 150-450 [facility] Comment on above: Performed By: #### C BC #### [facility] [address] [place] [address] Dr. Adan Rinaldi RBC 3.30 106/ul Critically low 4.20-5.40 [facility] Comment on above: Performed By: #### C BC #### [facility] [address] [place] [address] Dr. Adan Rinaldi WBC 6.6 103/ul Normal 4.0-11.0 [facility] Comment on above: Performed By: #### C BC #### [facility] [address] [place] [address] HEAD WO CONon 10-03-2022 CT HEAD WO CON EXAMINATION: CT HEAD WO CON HISTORY: Clouded consciousness (finding). COMPARISON: CT brain 06/09/2021 and 09/03/2022. TECHNIQUE: Unenhanced helical imaging was acquired from skull base to vertex. Multiplanar images are submitted. Dose reduction techniques were achieved by using: automated exposure control and/or adjustment of mA and /or kV according to patient size and/or use of iterative reconstruction technique. FINDINGS: There is no acute intraaxial or extraaxial mass, shift, or bleed. Davis-white junctions are well defined. Chronic small vessel ischemic disease within the subcortical and periventricular white matter. The ventricles and sulci are age-appropriate. Prominent cerumen within the bilateral auditory canals. The pituitary and sella turcica are normal. The orbit and ocular contents are normal. Right maxillary sinus mucous retention cyst or polyp. The paranasal sinuses are clear. Calvarium is intact. IMPRESSION: 1. No acute intracranial event. 2. Right maxillary sinus mucous retention cyst or polyp. No findings of sinusitis. 3. Normal brain volume with chronic small vessel ischemic disease. 4. Prominent bilateral impacted auditory canal cerumen. Electronically authenticated by: DEE DEE JESUS Date: 2022-10-03 15:52 Normal [facility] CULTURE BLOODon 10-03-2022 Microscopic examination of blood, culture Culture Observations: NO GROWTH AT 5 DAYS. Normal [facility] Comment on above: Performed By: #### P OCGLUC #### [facility] [address] [place] [address] Dr. Adan Rinaldi Microscopic examination of blood, culture Culture Observations: NO GROWTH AT 5 DAYS. Normal [facility] Comment on above: Performed By: #### B LDCX1 #### [facility] [address] [address] [address] Adan Rinaldi [facility] SARS-CoV-2 (COVID-19) RNA BLU+probe Ql (Unsp spec) Not detected Normal NOT DETECTED [facility] Comment on above: Result Comment: When diagnostic testing is negative, the possibility of a false negative should be considered in the context of a patient's recent exposures and the presence of clinical signs and symptoms consistent with SARS-CoV-2. This test is not yet approved or cleared by the [place] FDA. When there are no FDA-approved or cleared tests available, and other criteria are met, FDA can make tests available under an emergency access mechanism called an Emergency Use Authorization (EUA). The EUA for this test is supported by the [place] of Health and Human Service's declaration that circumstances exist to justify the emergency use of in vitro diagnostics for the detection and/or diagnosis of the virus that causes COVID-19. This EUA will remain in effect for the duration of the COVID-19 declaration justifying emergency of IVDs, unless it is terminated or revoked by the FDA (after which the test may no longer be used). Performed By: #### H LYNNE, BMP #### [facility] [address] [place] [address] Dr. Adan Rinaldi ER URINE PROFILEon 3 Bilirubin Ql (U) Negative Normal NEGATIVE [facility] Comment on above: Performed By: #### C VDTBH #### [facility] [address] [place] [address] Dr. Adan Rinaldi Clarity (U) CLEAR Normal CLEAR [facility] Comment on above: Performed By: #### C VDTBH #### [facility] [address] [place] [address] Dr. Adan Rinaldi Color (U) LT. YELLOW Normal YELLOW [facility] Comment on above: Performed By: #### C VDTBH #### [facility] [address] [place] [address] Dr. Adan Rinaldi ERUBello A micrscopic examination will be performed if indicated. Normal [facility] Comment on above: Performed By: #### C VDTBH #### [facility] [address] [place] [address] Dr. Adan Rinaldi Glucose Ql (U) Negative Normal NEGATIVE [facility] Comment on above: Performed By: #### C VDTBH #### [facility] [address] [place] [address] Dr. Adan Rinaldi Hemoglobin Ql (U) Negative Normal NEGATIVE [facility] Comment on above: Performed By: #### C VDTBH #### [facility] [address] [place] [address] Dr. Adan Rinaldi Ketones Ql (U) Negative Normal NEGATIVE [facility] Comment on above: Performed By: #### C VDTBH #### [facility] [address] [place] [address] Dr. Adan Rinaldi LEUKOCYTES Negative Normal NEGATIVE [facility] Comment on above: Performed By: #### C VDTBH #### [facility] [address] [address] [address] Adan Rinaldi Nitrite Ql (U) Negative Normal NEGATIVE [facility] Comment on above: Performed By: #### C VDTBH #### [facility] [address] [place] [address] Dr. Adan Rinaldi pH (U) 8.0 [pH] Normal 5-9 [facility] Comment on above: Performed By: #### C VDTBH #### [facility] [address] [place] [address] Dr. Adan Rinaldi SPEC GRAVITY 1.010 Normal 1.005-<=1.025 [facility] Comment on above: Performed By: #### C VDTBH #### [facility] [address] [place] [address] Dr. Adan Rinaldi UA PROTEIN Negative Normal NEGATIVE/ TRACE [facility] Comment on above: Performed By: #### C VDTBH #### [facility] [address] [place] [address] Dr. Adan Rinaldi UR MICRO IND NOT INDICATED Normal [facility] Comment on above: Performed By: #### C VDTBH #### [facility] [address] [place] [address] Dr. Adan Rinaldi Urobilinogen Qn (U) 4 {Manny'U}/dL Abnormal 0.2 - 1.0 [facility] Comment on above: Performed By: #### C VDTBH #### [facility] [address] [place] [address] Dr. Adan Rinaldi INFLUENZA A AND B AGon 10-03 [facility] SEE BELOW Normal [facility] Comment on above: Result Comment: Nega tive for Flu A protein angiten. Infection due to Flu A cannot be ruled out. Flu A angiten in the sample may be below the detection limit of the test. Performed By: #### P OCGLUC #### [facility] [address] [place] [address] Dr. Adan Rinaldi INFLUBNEG SEE BELOW [facility] Comment on above: Result Comment: Nega tive for Flu B protein antigen. Infection due to Flu B cannot be ruled out. Flu B antigen in the sample may be below the detection limit of the test. Performed By: #### P OCGLUC #### [facility] [address] [place] [address] Dr. Adan Rinaldi INFLUENZA A AG Negative Normal NEGATIVE SEE COMMENT [facility] Comment on above: Performed By: #### P OCGLUC #### [facility] [address] [place] [address] Dr. Adan Rinaldi INFLUENZA B AG Negative Normal NEGATIVE SEE COMMENT [facility] Comment on above: Performed By: #### P OCGLUC #### [facility] [address] [place] [address] Dr. Adan Rinaldi LACTATE/LACTIC ACIDon 2022 Lactate [Moles/Vol] 1.4 mmol/L Normal 0.4-1.9 [facility] Comment on above: Performed By: #### H STROPN, BMP #### [facility] [address] [place] [address] Dr. Adan Rinaldi POINT OF CARE GLUCOSEon 09-20 Glucose [Mass/Vol] 169 mg/dL Critically high 74-106 [facility] Comment on above: Performed By: #### C BC #### [facility] [address] [place] [address] Dr. Adan Rinaldi Glucose [Mass/Vol] 276 mg/dL Critically high -106 [facility] Comment on above: Performed By: #### H STROPN, BMP #### [facility] [address] [place] [address] Dr. Adan Rinaldi PROF 14(COMP METB)on 01-14-2 023 Albumin [Mass/Vol] 2.6 g/dL Critically low 3.4-5.0 [facility] Comment on above: Performed By: #### C BC #### [facility] [address] [place] [address] Dr. Adan Rinaldi Albumin/Globulin [Mass ratio] 0.5 {ratio} Normal [facility] Comment on above: Performed By: #### C BC #### [facility] [address] [place] [address] Dr. Adan Rinaldi ALP [Catalytic activity/Vol] 92 U/L Normal 46-116 [facility] Comment on above: Performed By: #### C BC #### [facility] [address] [place] [address] Dr. Adan Rinaldi ALT [Catalytic activity/Vol] 25 U/L Normal 14-59 [facility] Comment on above: Performed By: #### C BC #### [facility] [address] [place] [address] Dr. Adan Rinaldi Anion gap [Moles/Vol] 14.3 mmol/L Normal [facility] Comment on above: Performed By: #### C BC #### [facility] [address] [place] [address] Dr. Adan Rinaldi AST [Catalytic activity/Vol] 28 U/L Normal 15-37 [facility] Comment on above: Performed By: #### C BC #### [facility] [address] [place] [address] Dr. Adan Rinaldi Bilirubin [Mass/Vol] 0.6 mg/dL Normal 0.2-1.0 [facility] Comment on above: Performed By: #### C BC #### [facility] [address] [place] [address] Dr. Adan Rinaldi Calcium [Mass/Vol] 9.0 mg/dL Normal 8.5-10.1 [facility] Comment on above: Performed By: #### C BC #### [facility] [address] [place] [address] Dr. Adan Rinaldi Chloride [Moles/Vol] 93 mmol/L Critically low 98-107 [facility] Comment on above: Performed By: #### C BC #### [facility] [address] [address] [address] Adan Rinaldi CO2 [Moles/Vol] 30.2 mmol/L Normal 21.0-32.0 [facility] Comment on above: Performed By: #### C BC #### [facility] [address] [address] [address] Adan Rinaldi Creatinine [Mass/Vol] 1.70 mg/dL Critically high 0.55-1.02 [facility] Comment on above: Performed By: #### C BC #### [facility] [address] [address] [address] Adan Rinaldi EGFR-AF MARSHALLESE 35 mL/min/1.73m2 Critically low >=60 [facility] Comment on above: Performed By: #### C BC #### [facility] [address] [address] [address] Adan Rinaldi EGFR-NON AF MARSHALLESE 29 mL/min/1.73m2 Critically low >=60 [facility] Comment on above: Performed By: #### C BC #### [facility] [address] [address] [address] Adan Rinaldi Globulin (S) [Mass/Vol] 5.2 g/dL Normal [facility] Comment on above: Performed By: #### C BC #### [facility] [address] [address] [address] Adan Rinaldi Glucose [Mass/Vol] 171 mg/dL Critically high 74-106 [facility] Comment on above: Performed By: #### C BC #### [facility] [address] [address] [address] Adan Rinaldi Potassium [Moles/Vol] 3.5 mmol/L Normal 3.5-5.1 [facility] Comment on above: Performed By: #### C BC #### [facility] [address] [address] [address] Adan Rinaldi Protein [Mass/Vol] 7.8 g/dL Normal 6.4-8.2 [facility] Comment on above: Performed By: #### C BC #### [facility] [address] [place], [place] [address] Dr. Adan Rinaldi Sodium [Moles/Vol] 134 mmol/L Critically low 136-145 [facility] Comment on above: Performed By: #### C BC #### [facility] [address] [place], [place] [address] Dr. Adan Rinaldi Urea nitrogen [Mass/Vol] 28.0 mg/dL Critically high 7.0-18.0 [facility] Comment on above: Performed By: #### C BC #### [facility] [address] [place], [place] [address] Dr. Adan Rinaldi Urea nitrogen/Creatinine [Mass ratio] 16.5 mg/mg Normal [facility] Comment on above: Performed By: #### C BC #### [facility] [address] [address] [address] Adan Rinaldi XR CHEST 1 Von 10-03-2022 XR CHEST 1 V EXAMINATION: XR CHEST 1 V HISTORY: Asthenia COMPARISON: 06/09/2021 TECHNIQUE: AP portable FINDINGS: LUNGS: The right lung is clear. Mild to moderate left basilar infiltrate partially obscuring the hemidiaphragm VASCULATURE: No increased pulmonary vasculature. PLEURA: No pneumothorax, effusion, or pleural thickening. CARDIAC: No cardiomegaly or cardiac silhouette abnormality. MEDIASTINUM: No visible mass or adenopathy. Median sternotomy wires. Aortic calcifications BONES: No fracture or visible bone lesion. OTHER: Negative. IMPRESSION: Mild to moderate left basilar infiltrate Electronically authenticated by: JOBY RICH Date: 2022-10-03 11:24 Normal [facility] Glucose Glucometer (BldC) [M ass/Vol]Ordered By: Donn Joseph on 09-24-2022 Glucose [Mass/Vol] 184 mg/dL [facility] Comment on above: Random Glucose Refer ence Range is dependent on time and content of last meal. Glucose of more than 200 mg/dL in a nonstressed, ambulatory subject supports the diagnosis of Diabetes Mellitus. Glucose Poct Glucometerson 0 09-24-2022 Glucose [Mass/Vol] 184 mg/dL Normal [facility] Comment on above: Result Comment: [facility] Glucose Reference Range is dependent on time and content of last meal. Glucose of more than 200 mg/dL in a nonstressed, ambulatory subject supports the diagnosis of Diabetes Mellitus. PERFORMED BY: [address] [address] PATHOLOGIST PATCHER JUMA XIE M.D. Performed By: #### G LULS #### Point of Care testing , US carotid doppler BIon US carotid doppler BI [facility] [place] [address] [place] [id number] Ultrasound Report Signed Patient: Eliz Hewitt MR#: [id number] : 1935 Acct:[id number] Age/Sex: 86 / F ADM Date: 09/19/22 Loc: 4 Room: [address] [place] [address] Type: DIS IN Attending Dr: Donn Joseph DO Ordering Provider: Dusty Singh MD Date of Service: 09/20/22 US/US carotid doppler BI: syncope Copies to: MD Donn Luna DO CAROTID DUPLEX INDICATION: Syncope PROCEDURE: Color-flow duplex scanning is used to interrogate the extracranial carotid arterial system, as well as both vertebral arteries. The proximal right internal carotid artery shows a highest peak systolic velocity of 66.5 cm/s with an end-diastolic velocity of 7.46 cm/s . The mid internal carotid artery measures 80.1 cm/s peak systolic with an end-diastolic velocity of 14.3 cm/s . The distal segment measures 83.2 cm/s peak systolic with an end diastolic velocity of 14.3 cm/s . The velocities of the right common carotid artery are 90.7 cm/s peak systolic and 8.7 cm/s end- diastolic proximally and 82.6 cm/s peak systolic and 9.94 cm/s end-diastolic distally. The peak systolic velocity ratio of the internal to the common carotid artery is 1.01 . The right external carotid artery measures 122 cm/s peak systolic. The right vertebral artery is patent at 72.7 cm/s peak systolic and with antegrade flow. The proximal left internal carotid artery shows a highest peak systolic velocity of 69.7 cm/s with an end-diastolic velocity of 11 cm/s . The mid internal carotid artery measures 76.3 cm/s peak systolic with an end-diastolic velocity of 13.7 cm/s . The distal segment measures 81.8 cm/s peak systolic with an end diastolic velocity of 20.9 cm/s . The velocities of the left common carotid artery are 91.9 cm/s peak systolic and 11.8 cm/s end-diastolic proximally and 74.5 cm/s peak systolic and 8.62 cm/s end-diastolic distally. The peak systolic velocity ratio of the internal to the common carotid artery is 1.1 . The left external carotid artery measures 148 cm/s peak systolic. The left vertebral artery is patent at 59.5 cm/s peak systolic with antegrade flow. US/US carotid doppler BI IMPRESSION: NO HEMODYNAMICALLY SIGNIFICANT STENOSIS OF EITHER EXTRACRANIAL INTERNAL CAROTID ARTERY. BOTH VERTEBRAL ARTERIES ARE PATENT WITH ANTEGRADE FLOW. Impression dictated by: Malachi Luna MD09/24/2022 4:56 PM Dictation Location: [id number] Tech: Veronica Oconnor Transcribed By: YOU 09/24/221655 Dictated By: Malachi Luna MD 09/24/221654 Signed By: 09/24/221655 Normal [facility] Folate [Mass/volume] in Seru m or PlasmaOrdered By: Jodi Swift on 09-23-2022 Folate [Mass/Vol] 9.7 ng/mL >5.9 [facility] Comment on above: Folate reference ran ge: >5.9 ng/mlThe WHO technical consultation on folate and vitamin [id number] has determined that folate concentrations lessthan 4 ng/ml are considered deficient. Glucose Poct Glucometerson 0 09-23-2022 Glucose [Mass/Vol] 218 mg/dL Normal [facility] Comment on above: Result Comment: [facility] Glucose Reference Range is dependent on time and content of last meal. Glucose of more than 200 mg/dL in a nonstressed, ambulatory subject supports the diagnosis of Diabetes Mellitus. PERFORMED BY: [address] [place] [address] PATHOLOGIST PATCHER JUMA XIE M.D. Performed By: #### G LULS #### Point of Care testing , Commemt1 Glu2: Cleaned [facility] Comment on above: Result Comment: PERF ORMED BY: [address] [place] [address] PATHOLOGIST PATCHER JUMA XIE M.D. Performed By: #### G LULS #### Point of Care testing , Glucose [Mass/Vol] 154 mg/dL Normal [facility] Comment on above: Result Comment: [place] om Glucose Reference Range is dependent on time and content of last meal. Glucose of more than 200 mg/dL in a nonstressed, ambulatory subject supports the diagnosis of Diabetes Mellitus. Performed By: #### G LULS #### Point of Care testing , Glucose [Mass/Vol] 139 mg/dL Normal [facility] Comment on above: Result Comment: [place] om Glucose Reference Range is dependent on time and content of last meal. Glucose of more than 200 mg/dL in a nonstressed, ambulatory subject supports the diagnosis of Diabetes Mellitus. PERFORMED BY: [address] [place] [address] PATHOLOGIST PATCHER JUMA XIE M.D. Performed By: #### G LULS #### Point of Care testing , Commemt1 Glu2: Cleaned Meter [facility] Comment on above: Result Comment: PERF ORMED BY: [facility] [address] [place] [address] PATHOLOGIST PATCHER JUMA XIE M.D. Performed By: #### G LULS ####Point of Care testing, Glucose [Mass/Vol] 143 mg/dL Normal [facility] Comment on above: Result Comment: [place] om Glucose Reference Range is dependent on time and content of last meal. Glucose of more than 200 mg/dL in a nonstressed, ambulatory subject supports the diagnosis of Diabetes Mellitus. Performed By: #### G LULS ####Point of Care testing, Laboratory - Chemistry and C hemistry - challengeOrdered By: Jodi Swift on 09-23-2022 Cobalamin (Vitamin B12) [Mass/Vol] 545 pg/mL 180-914 [facility] MR angio MR brain w/oon MR angio MR brain w/o [facility] Main [place] [address] [place] [id number] MRI Report Signed Patient: Eliz Hewitt MR#: [id number] : 1935 Acct:[id number] Age/Sex: 86 / F ADM Date: 09/19/22 Loc: Room: [address] [place] [address] Type: ADM IN Attending Dr: Donn Joseph DO Copies to: AMARJIT Dunbar DO Ordering Provider: AMARJIT Dunbar Date of Service: 09/23/22 MR/MR angio MR brain w/o: Fall, ? Syncope MR angio MR brain w/o 09/23/2022 9:15 AM SIGN OF SYMPTOMS: Fall, syncopal episode, facial trauma PROTOCOL: Multiplanar multisequence MR images of the brain were obtained without IV contrast. Images include axial 3-D [id number] MRA with 3-D reconstructions COMPARISON: 09/22/2022 FINDINGS: MRI BRAIN WITHOUT CONTRAST: Extra axial spaces: Age appropriate. Hemorrhage: None. Ventricular system: Within normal limits. Basal cisterns: Within normal limits and not effaced. Cerebral parenchyma: There is periventricular and subcortical white matter T2 and T2 FLAIR hyperintense signal consistent with chronic microvascular ischemic change. Midline shift: None.. Cerebellum: Within normal limits. Brainstem: Within normal limits. OTHER: Calvarium: Normal marrow signal. Vascular system: Satisfactory flow voids within the anterior and posterior circulation. Visualized Paranasal sinuses: Their is polypoid mucosal thickening in the right maxillary sinus. Visualized Orbits: Within normal limits. Visualized upper cervical spine: Within normal limits. Sella and skull base: Within normal limits. MRA BRAIN: The superior cerebellar arteries, posterior inferior cerebellar arteries, and the basilar artery are within normal limits. The posterior cerebral arteries are unremarkable. The intracranial segments of the internal carotid arteries are within normal limits. There are normal anterior and middle cerebral arteries. Anterior communicating artery is patent. Posterior communicating arteries are hypoplastic which is a normal variant. The deep venous system and dural venous systems appear to be patent. MR/MR angio MR brain w/o IMPRESSION: No acute intracranial pathology. Chronic microvascular ischemic changes are noted. No focal stenosis, occlusion, or aneurysmal dilatation. Impression dictated by: Abram Baltazar M.D.09/23/2022 2:01 PM Dictation Location: [place] [address] Transcribed By: YOU 09/23/22 1401 Dictated By: Abram Baltazar II, MD 09/23/22 1353 Signed By: 09/23/22 1401 Normal [facility] No Panel InformationOrdered By: Donn Joseph on 09-23-2022 Bedside Glucose Comment Glu2: cleaned meter [facility] TSH DL <= 0.005 mIU/L QnOrde red By: Jodi Swift on 09-23-2022 TSH Qn 2.54 m[IU]/L 0.45-5.33 [facility] Thyroid Stimulating Hormoneo n 09-23-2022 TSH Qn 2.54 m[IU]/L Normal 0.45-5.33 [facility] Comment on above: Result Comment: PERF ORMED BY: [facility] [address] [place] [address] PATHOLOGIST PATCHER JUMA XIE M.D. Performed By: #### V [id number], TSH3 ####[place] [id number] [address] Vit. B12/Folate Profileon Cobalamin (Vitamin B12) [Mass/Vol] 545 pg/mL Normal 180-914 [facility] Comment on above: Performed By: #### V [id number], TSH3 ####[place] [id number] [address] Folate 9.7 ng/mL Normal >5.9 [facility] Comment on above: Result Comment: Soraya te reference range: >5.9 ng/ml The WHO technical consultation on folate and vitamin b12 deficiencies has determined that folate concentrations less than 4 ng/ml are considered deficient. Performed By: #### V [id number], TSH3 ####[facility] [id number] [place] [id number] [facility] XR ankle RT 2Von 09-23-2022 XR ankle RT 2V [facility] Main [place] [address] [place] [id number] XRay Report Signed Patient: Eliz Hewitt MR#: [id number] : 1935 Acct:[id number] Age/Sex: 86 / F ADM Date: 09/19/22 Loc: Room: [address] [place] [address] Type: ADM IN Attending Dr: Donn Joseph DO Copies to: AMARJIT Dunbar DO Ordering Provider: AMARJIT Dunbar Date of Service: 09/23/22 XR/XR ankle RT 2V: pain, fall RIGHT ANKLE - 2 views CLINICAL HISTORY: Right ankle pain and swelling status post fall. COMPARISON: None FINDINGS: Vascular calcifications and soft tissue swelling is noted. Ankle mortise appears intact without acute bony process. Remote injury medial and lateral malleolus. Plantar spurring. XR/XR ankle RT 2V IMPRESSION: SOFT TISSUE SWELLING WITHOUT ACUTE BONY PROCESS. Impression dictated by: Randy Vickers Jr., D.O.09/23/2022 12:59 PM Dictation Location: [place] [address] Transcribed By: [facility] 09/23/22 1259 Dictated By: Randy Vickers Jr, DO 09/23/22 1258 Signed By: 09/23/22 1259 [facility] Arterial Blood Gason 023 ABG Base Excess -0.7 mmol/L Normal -3.0-3.0 [facility] Comment on above: Performed By: #### G EZEQUIEL #### Point of Care testing , ABG Frac Inspired O2 21 % [facility] Comment on above: Performed By: #### G LULS #### Point of Care testing , ABG Oxygen Content 6.0 mmol/L Low 6.6-9.7 [facility] Comment on above: Performed By: #### G LULS #### Point of Care testing , ABG Oxygen Saturation 93.6 % Low 95.0-100.0 [facility] Comment on above: Performed By: #### G LULS #### Point of Care testing , ABG PCO2 28.6 mm[Hg] Off scale low 35.0-45.0 [facility] Comment on above: Performed By: #### G LULS #### Point of Care testing , ABG PH 7.50 High 7.35-7.45 [facility] Comment on above: Performed By: #### G LULS #### Point of Care testing , ABG PO2 61.9 mm[Hg] Low 80.0-100.0 [facility] Comment on above: Performed By: #### G LULS #### Point of Care testing , CO2 [Moles/Vol] 22.7 mmol/L Low 23.0-27.0 [facility] Comment on above: Performed By: #### G LULS #### Point of Care testing , HCO3 (Bld) [Moles/Vol] 21.8 mmol/L Low 23.0-29.0 [facility] Comment on above: Performed By: #### G LULS #### Point of Care testing , Respiratory Critical [facility] Comment on above: Result Comment: Crit ical Value called on: 09/22/2022 at 17:27 PERFORMED BY: [facility] [address] [place] [address] PATHOLOGIST PATCHER JUMA XIE M.D. Performed By: #### G LULS #### Point of Care testing , VBG Draw Site Right Radial Normal [facility] Comment on above: Performed By: #### G LULS #### Point of Care testing , Automated erythrocytes count in urine sediment (number/area)Ordered By: Donn Joseph on 09-22-2022 RBC Auto (Urine sed) [#/Area] 1-2 [HPF] 0-4 [facility] Automated leukocytes count i n urine sediment (number/area)Ordered By: Donn Joseph on 09-22-2022 WBC Auto (Urine sed) [#/Area] 10-19 [HPF] 0-4 [facility] Automated urine hyaline cast s count (number/volume)Ordered By: Donn Joseph on 09-22-2022 Hyaline casts Auto (U) [#/Vol] 5-9 [LPF] 0-1 [facility] B-Type Natriuretic Peptideon 09-22-2022 Natriuretic peptide B (Bld) [Mass/Vol] 3128.0 pg/mL High 5-100 [facility] Comment on above: Order Comment: ETELVINA avila notified AB 1602 THEY ARE STARTING A IV Result Comment: PERF ORMED BY: [facility] [address] [place] [address] PATHOLOGIST PATCHER JUMA XIE M.D. Performed By: #### G LULS #### Point of Care testing , Basic Metabolic Panelon Anion gap [Moles/Vol] 10.5 mmol/L Normal 6.0-15.0 [facility] Comment on above: Performed By: #### G LULS #### Point of Care testing , Calcium [Mass/Vol] 7.8 mg/dL Low 8.2-10.2 [facility] Comment on above: Performed By: #### G LULS #### Point of Care testing , Chloride [Moles/Vol] 106 mmol/L Normal 95-114 [facility] Comment on above: Performed By: #### G LULS #### Point of Care testing , CO2 [Moles/Vol] 19.0 mmol/L Low 22.0-30.0 [facility] Comment on above: Performed By: #### G LULS #### Point of Care testing , Creatinine [Mass/Vol] 1.03 mg/dL Normal 0.44-1.03 [facility] Comment on above: Performed By: #### G LULS #### Point of Care testing , Creatinine Clr Calc Pharmacy 34.48 Normal [facility] Comment on above: Result Comment: PERF ORMED BY: [facility] [address] [place] [address] PATHOLOGIST PATCHER JUMA XIE M.D. Performed By: #### G ESTELALS #### Point of Care testing , Estimated GFR ( Khushi > 60 [facility] Comment on above: Result Comment: GFR estimated reference range: According to KDOQI guidelines, <60 ml/min/1.73m2 is sufficient to diagnose a patient with chronic kidney disease. Performed By: #### G ESTELALS #### Point of Care testing , Estimated GFR (Non- Am 51 [facility] Comment on above: Performed By: #### G LULS #### Point of Care testing , Glucose [Mass/Vol] 212 mg/dL Significant change up 70-100 [facility] Comment on above: Result Comment: [facility] Glucose Reference Range is dependent on time and content of last meal. Glucose of more than 200 mg/dL in a nonstressed, ambulatory subject supports the diagnosis of Diabetes Mellitus. ADA recommended reference range Performed By: #### G LULS #### Point of Care testing , Potassium [Moles/Vol] 3.5 mmol/L Normal 3.5-5.1 [facility] Comment on above: Performed By: #### G ESTEALLS #### Point of Care testing , Sodium [Moles/Vol] 132 mmol/L Low 136-146 [facility] Comment on above: Performed By: #### G LULS #### Point of Care testing , Urea nitrogen [Mass/Vol] 21 mg/dL Normal 9-23 [facility] Comment on above: Performed By: #### G ESTELALS #### Point of Care testing , Basophils Auto (Bld) [#/Vol] Ordered By: Donn Joseph on 09-22-2022 Basophils (Bld) [#/Vol] 0.1 10*3/uL 0.0-0.2 [facility] Basophils/100 WBC Auto (Bld) Ordered By: Donn Joseph on 09-22-2022 Basophils/100 WBC (Bld) 0.9 % . [facility] Bilirubin Test strip Ql (U)O rdered By: Donn Joseph on 09-22-2022 Bilirubin Ql (U) Negative Negative [facility] Body fluid albumin measureme nt (mass/volume)Ordered By: Donn Joseph on 09-22-2022 Albumin (Body fld) [Mass/Vol] 2.4 g/dL 3.2-5.[address] [facility] [address] head/brain wo conon 09-22 CT head/brain wo con [facility] [address] CT Scan Report Signed Patient: Eliz Hewitt MR#: [id number] : 1935 Acct:[id number] Age/Sex: 86 / F ADM Date: 09/19/22 Loc: Room: [address] [place] [address] Type: ADM IN Attending Dr: Donn oJseph DO Copies to: Donn Joseph DO Ordering Provider: Donn Joseph DO Date of Service: 09/22/22 CT/CT head/brain wo con: Mental status change CT head/brain wo con 09/22/2022 5:06 PM SIGNS AND SYMPTOMS: Mental status change, recent fall hitting head TECHNIQUE:Multi-dete ctor CT axial slices of the brain were obtained without IV contrast. CT was performed with one or more of the following dose reduction techniques: Automated exposure control, adjustment of the mA and/or kV according to patient size, or use of iterative reconstruction technique. COMPARISON: 09/19/2022 FINDINGS: There is no shift of the midline structures, acute intracranial bleeding, mass effects, or evidence of acute ischemia. Atherosclerotic changes are present in the V4 segments of the vertebral arteries. The ventricular system is normal in size. The brainstem and the cerebellum are unremarkable. The visualized intraorbital contents, the visualized paranasal sinuses, and the infratemporal soft tissues show no acute abnormality. The osseous structures in the skull base and the calvarium show no abnormality. Degenerative changes are noted in the temporal mandibular joints bilaterally. CT/CT head/brain wo con IMPRESSION: No acute intracranial pathology. Impression dictated by: Abram Baltazar M.D.09/22/2022 5:45 PM Dictation Location: [place] [address] Transcribed By: [facility] 09/22/22 1745 Dictated By: Abram Baltazar II, MD 09/22/221740 Signed By: 09/22/22 174 Normal [facility] Casts typing in urine sedime nt by light microscopyOrdered By: Donn Joseph on 09-22-2022 Casts LM Nom (Urine sed) None seen [LPF] None Seen [facility] Color Auto (U)Ordered By: Flavia Joseph on 09-22-2022 Color (U) Dark yellow Yellow [facility] Complete Blood Count Auto Di ffon 09-22-2022 Basophils (Bld) [#/Vol] 0.1 10*3/uL Normal 0.0-0.2 [facility] Comment on above: Order Comment: ETELVINA alberto lie notified AB 160 THEY ARE STARTING A IV Result Comment: PERF ORMED BY: [facility] [address] [address] PATHOLOGIST PATCHER JUMA XIE M.D. Performed By: #### G LULS #### Point of Care testing , Basophils/100 WBC (Bld) 0.9 % Normal . [facility] Comment on above: Order Comment: ETELVINA alberto lie notified AB 1602 THEY ARE STARTING A IV Performed By: #### G LULS #### Point of Care testing , Eosinophils (Bld) [#/Vol] 0.1 10*3/uL Normal 0.0-0.45 [facility] Comment on above: Order Comment: ETELVINA alberto lie notified AB 1602 THEY ARE STARTING A IV Performed By: #### G LULS #### Point of Care testing , Eosinophils/100 WBC (Bld) 1.6 % Normal . [facility] Comment on above: Order Comment: ETELVINA alberto lie notified AB 1602 THEY ARE STARTING A IV Performed By: #### G LULS #### Point of Care testing , Erythrocyte distribution width (RBC) [Ratio] 15.6 % High 11.9-15.3 [facility] Comment on above: Order Comment: ETELVINA alberto lie notified AB 1602 THEY ARE STARTING A IV Performed By: #### G LULS #### Point of Care testing , Hematocrit (Bld) [Volume fraction] 26.5 % Low 34.0-46.4 [facility] Comment on above: Order Comment: ETELVINA alberto lie notified AB 1601 THEY ARE STARTING A IV Performed By: #### G LULS #### Point of Care testing , Hemoglobin (Bld) [Mass/Vol] 8.8 g/dL Low 11.8-15.4 [facility] Comment on above: Order Comment: ETELVINA alberto lie notified 1601 THEY ARE STARTING A IV Performed By: #### G LULS #### Point of Care testing , Lymphocytes (Bld) [#/Vol] 0.9 10*3/uL Low 1.00-4.8 [facility] Comment on above: Order Comment: ETELVINA alberto lie notified 1601 THEY ARE STARTING A IV Performed By: #### G LULS #### Point of Care testing , Lymphocytes/100 WBC (Bld) 10.4 % Normal . [facility] Comment on above: Order Comment: ETELVINA alberto lie notified 1601 THEY ARE STARTING A IV Performed By: #### G LULS #### Point of Care testing , MCH (RBC) [Entitic mass] 30.0 pg Normal 24.7-34.3 [facility] Comment on above: Order Comment: ETELVINA alberto lie notified 1601 THEY ARE STARTING A IV Performed By: #### G LULS #### Point of Care testing , MCV (RBC) [Entitic vol] 89.9 fL Normal 80-100 [facility] Comment on above: Order Comment: ETELVINA alberto lie notified 1601 THEY ARE STARTING A IV Performed By: #### G LULS #### Point of Care testing , Mean Corpuscular HGB Conc 33.3 g/dL Normal 32.0-35.0 [facility] Comment on above: Order Comment: ETELVINA alberto lie notified 1601 THEY ARE STARTING A IV Performed By: #### G LULS #### Point of Care testing , Monocytes (Bld) [#/Vol] 0.8 10*3/uL Normal 0.0-0.8 [facility] Comment on above: Order Comment: ETELVINA alberto lie notified 1601 THEY ARE STARTING A IV Performed By: #### G LULS #### Point of Care testing , Monocytes/100 WBC (Bld) 9.8 % Normal . [facility] Comment on above: Order Comment: ETELVINA avila notified AB 1601 THEY ARE STARTING A IV Performed By: #### G LULS #### Point of Care testing , Neutrophils (Bld) [#/Vol] 6.6 10*3/uL Normal 1.8-7.7 [facility] Comment on above: Order Comment: ETELVINA avila notified 1601 THEY ARE STARTING A IV Performed By: #### G LULS #### Point of Care testing , Neutrophils/100 WBC (Bld) 77.3 % Normal . [facility] Comment on above: Order Comment: ETELVINA avila notified 1601 THEY ARE STARTING A IV Performed By: #### G LULS #### Point of Care testing , NRBC% 0.1 /100{WBC} Normal 0-0.5 [facility] Comment on above: Order Comment: ETELVINA avila notified 1601 THEY ARE STARTING A IV Performed By: #### G LULS #### Point of Care testing , Platelet mean volume (Bld) [Entitic vol] 8.2 fL Normal 6.3-10.7 [facility] Comment on above: Order Comment: ETELVINA avila notified 1601 THEY ARE STARTING A IV Performed By: #### G LULS #### Point of Care testing , Platelets (Bld) [#/Vol] 161 10*3/uL Normal 150-450 [facility] Comment on above: Order Comment: ETELVINA avila notified 1601 THEY ARE STARTING A IV Performed By: #### G LULS #### Point of Care testing , RBC (Bld) [#/Vol] 2.94 10*6/uL Low 3.60-5.[address] [facility] Comment on above: Order Comment: ETELVINA avila notified 1601 THEY ARE STARTING A IV Performed By: #### G LULS #### Point of Care testing , WBC (Bld) [#/Vol] 8.6 10*3/uL Normal 3.8-11.6 [facility] Comment on above: Order Comment: RN remy avila notified AB 1602 THEY ARE STARTING A IV Performed By: #### G LULS #### Point of Care testing , Basophils (Bld) [#/Vol] 0.1 10*3/uL Normal 0.0-0.2 [facility] Comment on above: Result Comment: PERF ORMED BY: [facility] [place] [address] PATHOLOGIST PATCHER JUMA XIE M.D. Performed By: #### G LULS #### Point of Care testing , Basophils/100 WBC (Bld) 1.3 % Normal . [facility] Comment on above: Performed By: #### G LULS #### Point of Care testing , Eosinophils (Bld) [#/Vol] 0.0 10*3/uL Normal 0.0-0.45 [facility] Comment on above: Performed By: #### G LULS #### Point of Care testing , Eosinophils/100 WBC (Bld) 0.5 % Normal . [facility] Comment on above: Performed By: #### G LULS #### Point of Care testing , Erythrocyte distribution width (RBC) [Ratio] 15.3 % Normal 11.9-15.3 [facility] Comment on above: Performed By: #### G LULS #### Point of Care testing , Hematocrit (Bld) [Volume fraction] 27.0 % Low 34.0-46.4 [facility] Comment on above: Performed By: #### G LULS #### Point of Care testing , Hemoglobin (Bld) [Mass/Vol] 9.0 g/dL Low 11.8-15.4 [facility] Comment on above: Performed By: #### G LULS #### Point of Care testing , Lymphocytes (Bld) [#/Vol] 0.9 10*3/uL Low 1.00-4.8 [facility] Comment on above: Performed By: #### G LULS #### Point of Care testing , Lymphocytes/100 WBC (Bld) 9.4 % Normal . [facility] Comment on above: Performed By: #### Piedad PALMERLS #### Point of Care testing , MCH (RBC) [Entitic mass] 29.9 pg Normal 24.7-34.3 [facility] Comment on above: Performed By: #### Piedad PALMERLS #### Point of Care testing , MCV (RBC) [Entitic vol] 90.3 fL Normal 80-100 [facility] Comment on above: Performed By: #### Piedad PALMERLS #### Point of Care testing , Mean Corpuscular HGB Conc 33.2 g/dL Normal 32.0-35.0 [facility] Comment on above: Performed By: #### Piedad PALMERLS #### Point of Care testing , Monocytes (Bld) [#/Vol] 0.8 10*3/uL Normal 0.0-0.8 [facility] Comment on above: Performed By: #### Piedad NIEVES #### Point of Care testing , Monocytes/100 WBC (Bld) 8.9 % Normal . [facility] Comment on above: Performed By: #### Piedad NIEVES #### Point of Care testing , Neutrophils (Bld) [#/Vol] 7.6 10*3/uL Normal 1.8-7.7 [facility] Comment on above: Performed By: #### Piedad NIEVES #### Point of Care testing , Neutrophils/100 WBC (Bld) 79.9 % Normal . [facility] Comment on above: Performed By: #### Piedad NIEVES #### Point of Care testing , NRBC% 0.3 /100{WBC} Normal 0-0.5 [facility] Comment on above: Performed By: #### Piedad NIEVES #### Point of Care testing , Platelet mean volume (Bld) [Entitic vol] 8.6 fL Normal 6.3-10.7 [facility] Comment on above: Performed By: #### Piedad PALMERLS #### Point of Care testing , Platelets (Bld) [#/Vol] 173 10*3/uL Normal 150-450 [facility] Comment on above: Performed By: #### Piedad NIEVES #### Point of Care testing , RBC (Bld) [#/Vol] 2.99 10*6/uL Low 3.60-5.[address] [facility] Comment on above: Performed By: #### G EZEQUIEL #### Point of Care testing , WBC (Bld) [#/Vol] 9.5 10*3/uL Normal 3.8-11.6 [facility] Comment on above: Performed By: #### G ESTELALS #### Point of Care testing , Comprehensive Metabolic Pane lc 09-22-2022 Albumin [Mass/Vol] 2.4 g/dL Low 3.2-5.5 [facility] Comment on above: Order Comment: ETELVINA avila notified AB 1601 THEY ARE STARTING A IV Performed By: #### G EZEQUIEL #### Point of Care testing , Albumin/Globulin [Mass ratio] 0.7 {ratio} Normal [facility] Comment on above: Order Comment: ETELVINA alberto lie notified AB 1601 THEY ARE STARTING A IV Performed By: #### G EZEQUIEL #### Point of Care testing , ALP [Catalytic activity/Vol] 77 U/L Normal 32-92 [facility] Comment on above: Order Comment: ETELVINA alberto lie notified AB 1601 THEY ARE STARTING A IV Performed By: #### G EZEQUIEL #### Point of Care testing , ALT [Catalytic activity/Vol] 17 U/L Normal 10-60 [facility] Comment on above: Order Comment: ETELVINA alberto lie notified AB 1601 THEY ARE STARTING A IV Performed By: #### G ESTELALS #### Point of Care testing , Anion gap [Moles/Vol] 12.6 mmol/L Normal 6.0-15.0 [facility] Comment on above: Order Comment: ETELVINA alberto lie notified AB 1601 THEY ARE STARTING A IV Performed By: #### G ESTELALS #### Point of Care testing , AST [Catalytic activity/Vol] 24 U/L Normal 10-42 [facility] Comment on above: Order Comment: ETELVINA alberto lie notified AB 1601 THEY ARE STARTING A IV Performed By: #### G ESTELALS #### Point of Care testing , Bilirubin [Mass/Vol] 0.5 mg/dL Normal 0.3-1.2 [facility] Comment on above: Order Comment: ETELVINA alberto lie notified 1601 THEY ARE STARTING A IV Performed By: #### G LULS #### Point of Care testing , Calcium [Mass/Vol] 7.9 mg/dL Low 8.2-10.2 [facility] Comment on above: Order Comment: ETELVINA alberto lie notified 1601 THEY ARE STARTING A IV Performed By: #### G LULS #### Point of Care testing , Chloride [Moles/Vol] 102 mmol/L Normal 95-114 [facility] Comment on above: Order Comment: ETELVINA alberto lie notified 1601 THEY ARE STARTING A IV Performed By: #### G LULS #### Point of Care testing , CO2 [Moles/Vol] 20.0 mmol/L Low 22.0-30.0 [facility] Comment on above: Order Comment: ETELVINA alberto lie notified 1601 THEY ARE STARTING A IV Performed By: #### G LULS #### Point of Care testing , Creatinine [Mass/Vol] 1.03 mg/dL Normal 0.44-1.03 [facility] Comment on above: Order Comment: ETELVINA alberto lie notified 1601 THEY ARE STARTING A IV Performed By: #### G LULS #### Point of Care testing , Creatinine Clr Calc Pharmacy 34.48 [facility] Comment on above: Order Comment: ETELVINA alberto lie notified 1601 THEY ARE STARTING A IV Result Comment: PERF ORMED BY: [facility] [address] [place] [address] PATHOLOGIST PATCHER JUMA XIE M.D. Performed By: #### G LULS #### Point of Care testing , Estimated GFR ( Khushi > 60 [facility] Comment on above: Order Comment: ETELVINA alberto lie notified 1601 THEY ARE STARTING A IV Result Comment: GFR estimated reference range: According to KDOQI guidelines, <60 ml/min/1.73m2 is sufficient to diagnose a patient with chronic kidney disease. Performed By: #### G LULS #### Point of Care testing , Estimated GFR (Non- Am 51 [facility] Comment on above: Order Comment: ETELVINA avila notified AB 1601 THEY ARE STARTING A IV Performed By: #### G LULS #### Point of Care testing , Globulin (S) [Mass/Vol] 3.4 g/dL [facility] Comment on above: Order Comment: ETELVINA avila notified AB 1601 THEY ARE STARTING A IV Performed By: #### G LULS #### Point of Care testing , Glucose [Mass/Vol] 232 mg/dL High 70-100 [facility] Comment on above: Order Comment: ETELVINA avila notified AB 1601 THEY ARE STARTING A IV Result Comment: [facility] Glucose Reference Range is dependent on time and content of last meal. Glucose of more than 200 mg/dL in a nonstressed, ambulatory subject supports the diagnosis of Diabetes Mellitus. ADA recommended reference range Performed By: #### G LULS #### Point of Care testing , Potassium [Moles/Vol] 3.6 mmol/L Normal 3.5-5.1 [facility] Comment on above: Order Comment: ETELVINA alberto lie notified AB 1601 THEY ARE STARTING A IV Performed By: #### G LULS #### Point of Care testing , Protein [Mass/Vol] 5.8 g/dL Low 6.1-7.9 [facility] Comment on above: Order Comment: ETELVINA alberto lie notified AB 1601 THEY ARE STARTING A IV Performed By: #### G LULS #### Point of Care testing , Sodium [Moles/Vol] 131 mmol/L Low 136-146 [facility] Comment on above: Order Comment: ETELVINA alberto lie notified AB 1601 THEY ARE STARTING A IV Performed By: #### G LULS #### Point of Care testing , Urea nitrogen [Mass/Vol] 26 mg/dL High 9-23 [facility] Comment on above: Order Comment: ETELVINA alberto lie notified AB 1601 THEY ARE STARTING A IV Performed By: #### G LULS #### Point of Care testing , Creatinine and Glomerular fi ltration rate.predicted panel (S/P/Bld)Ordered By: Donn Joseph on 09-22-2022 Creatinine [Mass/Vol] 1.03 mg/dL 0.44-1.03 [facility] Dipstick and Microscopicon 0 09-22-2022 Appearance (U) Cloudy Critically abnormal Clear [facility] Comment on above: Order Comment: Name Collection Type:: Richardson Catheter Performed By: #### A DDONUAPLUS, CUU #### [facility] [address] [place] [address] [place] Bacteria,Urine None Seen Normal None Seen [facility] Comment on above: Order Comment: Name Collection Type:: Richardson Catheter Performed By: #### A DDONUAPLUS, CUU #### [place] [address] [place] Bilirubin,Urine Negative Normal Negative [facility] Comment on above: Order Comment: Name Collection Type:: Richardson Catheter Performed By: #### A DDONUAPLUS, CUU #### [place] [address] [place] Color (U) Dark Yellow Critically abnormal Yellow [facility] Comment on above: Order Comment: Name Collection Type:: Richardson Catheter Performed By: #### A DDONUAPLUS, CUU #### [facility] [address] [place] [address] [place] Fine Granular Casts,Urine 1-2 High 0-1 [facility] Comment on above: Order Comment: Name Collection Type:: Richardson Catheter Performed By: #### A DDONUAPLUS, CUU #### [facility] [address] [place] [address] [place] Glucose Ql (U) 500 mg/dL High Normal [facility] Comment on above: Order Comment: Name Collection Type:: Richardson Catheter Performed By: #### A DDONUAPLUS, CUU #### [facility] [address] [place] [address] [place] Hyaline Casts,Urine 5-9 High 0-[address] [facility] Comment on above: Order Comment: Name Collection Type:: Richardson Catheter Performed By: #### A DDONUAPLUS, CUU #### [facility] [address] [place] [address] [place] Ketones Ql (U) Trace High Negative [facility] Comment on above: Order Comment: Name Collection Type:: Richardson Catheter Performed By: #### A DDONUAPLUS, CUU #### [address] Leukocyte esterase Test strip Ql (U) 2+ High Negative [facility] Comment on above: Order Comment: Name Collection Type:: Richardson Catheter Performed By: #### A DDONUAPLUS, CUU #### [address] Nitrite,Urine Negative Normal Negative [facility] Comment on above: Order Comment: Name Collection Type:: Richardson Catheter Performed By: #### A DDONUAPLUS, CUU #### [address] Occult Blood,Urine Trace High Negative [facility] Comment on above: Order Comment: Name Collection Type:: Richardson Catheter Result Comment: PERF ORMED BY: [place] [address] PATHOLOGIST PATCHER JUMA XIE M.D. Performed By: #### A DDONUAPLUS, CUU #### [address] Other Casts,Urine None Seen Normal None Seen [facility] Comment on above: Order Comment: Name Collection Type:: Richardson Catheter Performed By: #### A DDONUAPLUS, CUU #### [address] pH (U) 5.5 [pH] Normal 5.0-9.0 [facility] Comment on above: Order Comment: Name Collection Type:: Richardson Catheter Performed By: #### A DDONUAPLUS, CUU #### [address] Protein (U) [Mass/Vol] 100 mg/dL High Negative [facility] Comment on above: Order Comment: Name Collection Type:: Richardson Catheter Performed By: #### A DDONUAPLUS, CUU #### [address] [place] [address] [place] RBC,Urine 1-2 Normal 0-4 [facility] Comment on above: Order Comment: Name Collection Type:: Richardson Catheter Performed By: #### A DDONUAPLUS, CUU #### [facility] [address] [place] [address] Renal Epithelial Cells,Urine None Seen Normal 0-1 [facility] Comment on above: Order Comment: Name Collection Type:: Richardson Catheter Performed By: #### A DDONUAPLUS, CUU #### [address] Specificy [place],Urine 1.025 Normal 1.001-1.030 [facility] Comment on above: Order Comment: Name Collection Type:: Richardson Catheter Performed By: #### A DDONUAPLUS, CUU #### [place] [address] [place] Squamous Epithelial Cell,Urine 5-9 High 0-2 [facility] Comment on above: Order Comment: Name Collection Type:: Richardson Catheter Performed By: #### A DDONUAPLUS, CUU #### [address] Urobilinogen,Urine Normal Normal Normal [facility] Comment on above: Order Comment: Name Collection Type:: Richardson Catheter Performed By: #### A DDONUAPLUS, CUU #### [facility] [address] [place] [address] [place] WBC,Urine 10-19 High 0-4 [facility] Comment on above: Order Comment: Name Collection Type:: Richardson Catheter Performed By: #### A DDONUAPLUS, CUU #### [facility] [address] [place] [address] [place] Yeast,Urine None Seen Normal None Seen [facility] Comment on above: Order Comment: Name Collection Type:: Richardson Catheter Result Comment: PERF ORMED BY: [place] [address] PATHOLOGIST PATCHER JUMA XIE M.D. Performed By: #### A DDONUAPLUS, CUU #### [facility] [address] Eosinophils Auto (Bld) [#/Vo l]Ordered By: Donn Joseph on 09-22-2022 Eosinophils (Bld) [#/Vol] 0.1 10*3/uL 0.0-0.45 [facility] Eosinophils/100 WBC Auto (Bl d)Ordered By: Donn Joseph on 09-22-2022 Eosinophils/100 WBC (Bld) 1.6 % . [facility] Erythrocyte distribution wid th Auto (RBC) [Ratio]Ordered By: Donn Joseph on 09-22-2022 Erythrocyte distribution width (RBC) [Ratio] 15.6 % 11.9-15.3 [facility] Estimated glomerular filtrat ion rate (GFR) non- AmericanOrdered By: Donn Joseph on 09-22-2022 GFR/1.73 sq M.predicted among non-blacks MDRD (S/P/Bld) [Vol rate/Area] 51 mL/Min [facility] Fine granular cast count in urine sediment by microscopy (number/low power field )Ordered By: Donn Joseph on 09-22-2022 Fine Granular Casts LM.LPF (Urine sed) [#/Area] 1-2 [LPF] 0-1 [facility] Globulin Calc (S) [Mass/Vol] Ordered By: Donn Joseph on 09-22-2022 Globulin (S) [Mass/Vol] 3.4 g/dL [facility] Glucose Poct Glucometerson 0 09-22-2022 Glucose [Mass/Vol] 237 mg/dL Normal [facility] Comment on above: Result Comment: [facility] Glucose Reference Range is dependent on time and content of last meal. Glucose of more than 200 mg/dL in a nonstressed, ambulatory subject supports the diagnosis of Diabetes Mellitus. PERFORMED BY: [facility] [address] [place] [address] PATHOLOGIST PATCHER JUMA XIE M.D. Performed By: #### G LULS ####Point of Care testing, Commemt1 Glu2: Cleaned Meter Normal [facility] Comment on above: Result Comment: PERF ORMED BY: [address] [place] [address] PATHOLOGIST PATCHER JUMA XIE M.D. Performed By: #### G LULS #### Point of Care testing , Glucose [Mass/Vol] 231 mg/dL Normal [facility] Comment on above: Result Comment: [place] [facility] Glucose Reference Range is dependent on time and content of last meal. Glucose of more than 200 mg/dL in a nonstressed, ambulatory subject supports the diagnosis of Diabetes Mellitus. Performed By: #### G LULS #### Point of Care testing , Glucose [Mass/Vol] 195 mg/dL Normal [facility] Comment on above: Result Comment: [place] [facility] Glucose Reference Range is dependent on time and content of last meal. Glucose of more than 200 mg/dL in a nonstressed, ambulatory subject supports the diagnosis of Diabetes Mellitus. PERFORMED BY: [address] [place] [id number] PATHOLOGIST PATCHER JUMA XIE M.D. Performed By: #### G LULS ####Point of Care testing, Glucose [Mass/Vol] 208 mg/dL Normal [facility] Comment on above: Result Comment: [facility] Glucose Reference Range is dependent on time and content of last meal. Glucose of more than 200 mg/dL in a nonstressed, ambulatory subject supports the diagnosis of Diabetes Mellitus. PERFORMED BY: [address] [place] [address] PATHOLOGIST PATCHER JUMA XIE M.D. Performed By: #### G LULS ####Point of Care testing, Hematocrit Auto (Bld) [Volum e fraction]Ordered By: Donn Joseph on 09-22-2022 Hematocrit (Bld) [Volume fraction] 26.5 % 34.0-46.4 [facility] Hemoglobin [Mass/volume] in BloodOrdered By: Donn Joseph on 09-22-2022 Hemoglobin (Bld) [Mass/Vol] 8.8 g/dL 11.8-15.4 [facility] Ketones Auto test strip (U) [Mass/Vol]Ordered By: Dnon Joseph on 09-22-2022 Ketones (U) [Mass/Vol] Trace Negative [facility] Laboratory - Chemistry and C hemistry - challengeOrdered By: Donn Joseph on 09-22-2022 CO2 [Moles/Vol] 22.7 mmol/L 23.0-27.0 [facility] HCO3 (Bld) [Moles/Vol] 21.8 mmol/L 23.0-29.0 [facility] Natriuretic peptide B (Bld) [Mass/Vol] 3128.0 pg/mL 5-100 [facility] Lactic Acidon 09-22-2022 Lactate [Moles/Vol] 1.0 mmol/L Normal 0.5-2.[address] [facility] Comment on above: Order Comment: ETELVINA avila notified AB 1602 THEY ARE STARTING A IV Result Comment: PERF ORMED BY: [facility] [address] [place] [address] PATHOLOGIST PATCHER JUMA XIE M.D. Performed By: #### G LULS #### Point of Care testing , Leukocytes [#/volume] correc fern for nucleated erythrocytes in Blood by Automated counOrdered By: Donn Joseph on 09-22-2022 WBC corrected for nucl RBC Auto (Bld) [#/Vol] 8.6 10*3/uL 3.8-11.6 [facility] Lymphocytes Auto (Bld) [#/Vo l]Ordered By: Donn Joseph on 09-22-2022 Lymphocytes (Bld) [#/Vol] 0.9 10*3/uL 1.00-4.8 [facility] Lymphocytes/100 WBC Auto (Bl d)Ordered By: Donn Joseph on 09-22-2022 Lymphocytes/100 WBC (Bld) 10.4 % . [facility] MCH Auto (RBC) [Entitic mass ]Ordered By: Donn Joseph on 09-22-2022 MCH (RBC) [Entitic mass] 30.0 pg 24.7-34.3 [facility] MCHC Auto (RBC) [Mass/Vol]Or dered By: Donn Joseph on 09-22-2022 MCHC (RBC) [Mass/Vol] 33.3 g/dL 32.0-35.0 [facility] MCV Auto (RBC) [Entitic vol] Ordered By: Donn Joseph on 09-22-2022 MCV (RBC) [Entitic vol] 89.9 fL 80-100 [facility] Monocytes Auto (Bld) [#/Vol] Ordered By: Donn Joseph on 09-22-2022 Monocytes (Bld) [#/Vol] 0.8 10*3/uL 0.0-0.8 [facility] Monocytes/100 WBC Auto (Bld) Ordered By: Donn Joseph on 09-22-2022 Monocytes/100 WBC (Bld) 9.8 % . [facility] Neutrophils Auto (Bld) [#/Vo l]Ordered By: Donn Joseph on 09-22-2022 Neutrophils (Bld) [#/Vol] 6.6 10*3/uL 1.8-7.7 [facility] Neutrophils/100 WBC Auto (Bl d)Ordered By: Donn Joseph on 09-22-2022 Neutrophils/100 WBC (Bld) 77.3 % . [facility] Nitrite Test strip Ql (U)Ord ered By: Donn Joseph on 09-22-2022 Nitrite Ql (U) Negative Negative [facility] No Panel InformationOrdered By: Donn Joseph on 09-22-2022 Arterial Blood Base Excess -0.7 mmol/L -3.0-3.0 [facility] Arterial Blood Oxygen Content 6.0 mmol/L 6.6-9.7 [facility] Arterial Blood Oxygen Saturation 93.6 % 95.0-100.0 [facility] Arterial Blood Partial Pressure CO2 28.6 mm[Hg] 35.0-45.0 [facility] Arterial Blood Partial Pressure O2 61.9 mm[Hg] 80.0-100.0 [facility] Arterial Blood pH 7.50 7.35-7.45 [facility] Blood Gas Critical Value See comment [facility] Comment on above: Critical Value edmond knowles on: 09/22/2022 at 17:27 Blood Gas Sample Site Right radial F [facility] FiO2 21 % [facility] Estimated GFR () > 60 mL/Min [facility] Comment on above: GFR estimated refere nce range: According to KDOQI guidelines, <60 ml/min/1.73m2 is sufficient to diagnose a patient with chronic kidney disease. Pharmacy Creatinine Clearance (Chem 34.48 [facility] Nucleated erythrocytes [Pres ence] in Blood by Automated countOrdered By: Donn Joseph on 09-22-2022 Nucleated RBC Auto Ql (Bld) 0.1 /100{WBC} 0-0.5 [facility] Platelet mean volume Auto (B ld) [Entitic vol]Ordered By: Donn Joseph on 09-22-2022 Platelet mean volume (Bld) [Entitic vol] 8.2 fL 6.3-10.7 [facility] Platelets Auto (Bld) [#/Vol] Ordered By: Donn Joseph on 09-22-2022 Platelets (Bld) [#/Vol] 161 10*3/uL 150-450 [facility] Protein Auto test strip (U) [Mass/Vol]Ordered By: Donn Joseph on 09-22-2022 Protein (U) [Mass/Vol] 100 mg/dL Negative [facility] Protein [Mass/volume] in Ser um or PlasmaOrdered By: Donn Joseph on 09-22-2022 Protein [Mass/Vol] 5.8 g/dL 6.1-7.9 [facility] RBC Auto (Bld) [#/Vol]Ordere d By: Donn Joseph on 09-22-2022 RBC (Bld) [#/Vol] 2.94 10*6/uL 3.60-5.[address] [facility] Serum or plasma alanine cox otransferase measurement without P-5'-P (enzymatic activiOrdered By: Donn Joseph on 09-22-2022 ALT No additional P-5'-P [Catalytic activity/Vol] 17 U/L 10-60 [facility] Serum or plasma albumin/glob ulin mass ratioOrdered By: Donn Joseph on 09-22-2022 Albumin/Globulin [Mass ratio] 0.7 {ratio} [facility] Serum or plasma alkaline angela sphatase measurement (enzymatic activity/volume)Ordered By: Donn Joseph on 09-22-2022 ALP [Catalytic activity/Vol] 77 U/L 32-92 [facility] Serum or plasma anion gap de terminationOrdered By: Donn Joseph on 09-22-2022 Anion gap [Moles/Vol] 12.6 mmol/L 6.0-15.0 [facility] Serum or plasma aspartate am inotransferase measurement (enzymatic activity/volume)Ordered By: Donn Joseph on 09-22-2022 AST [Catalytic activity/Vol] 24 U/L 10-42 [facility] Serum or plasma calcium terri urement (mass/volume)Ordered By: Donn Joseph on 09-22-2022 Calcium [Mass/Vol] 7.9 mg/dL 8.2-10.2 [facility] Serum or plasma chloride keny surement (moles/volume)Ordered By: Donn Joseph on 09-22-2022 Chloride [Moles/Vol] 102 mmol/L 95-114 [facility] Serum or plasma glucose terri urement (mass/volume)Ordered By: Donn Joseph on 09-22-2022 Glucose [Mass/Vol] 232 mg/dL 70-100 [facility] Comment on above: ADA recommended refe rence rangeRandom Glucose Reference Range is dependent on time and content of last meal. Glucose of more than 200 mg/dL in a nonstressed, ambulatory subject supports the diagnosis of Diabetes Mellitus. Serum or plasma potassium me asurement (moles/volume)Ordered By: Donn Joseph on 09-22-2022 Potassium [Moles/Vol] 3.6 mmol/L 3.5-5.1 [facility] Serum or plasma sodium measu rement (moles/volume)Ordered By: Donn Joseph on 09-22-2022 Sodium [Moles/Vol] 131 mmol/L 136-146 [facility] Serum or plasma total biliru bin measurement (mass/volume)Ordered By: Donn Joseph on 09-22-2022 Bilirubin [Mass/Vol] 0.5 mg/dL 0.3-1.2 [facility] Serum or plasma total carbon dioxide measurement (moles/volume)Ordered By: Donn Joseph on 09-22-2022 CO2 [Moles/Vol] 20.0 mmol/L 22.0-30.0 [facility] Serum or plasma urea nitroge n measurement (mass/volume)Ordered By: Donn Joseph on 09-22-2022 Urea nitrogen [Mass/Vol] 26 mg/dL 9-23 [facility] Specific gravity Auto test s trip (U) [Rel density]Ordered By: Donn Joseph on 09-22-2022 Specific gravity (U) [Rel density] 1.025 1.001-1.030 [facility] Squamous epithelial cells de tection in urine sediment by light microscopyOrdered By: Donn Joseph on 09-22-2022 Epithelial cells.squamous LM Ql (Urine sed) 5-9 [HPF] 0-2 [facility] Urine Cultureon 09-22-2022 Bacteria identified Cx Nom (U) ORGANISM: Providencia rettgeri (O:PRORET) Kimball Count 20,000 Aerobic LONNIE Charge (NMIC56) ----- SUSCEPTIBILITY ---- ORGANISM: O:PRORET ANTIBIOTIC INTERPRETATION LONNIE Amikacin S <16 Ampicillin/Sulbactam I 1616/8 Aztreonam IB <4 Cefepime S <2 Ceftazidime R >16 Ceftazidime/Avibacta m S <4 Ceftolozane/Tazobact am S <2 Ceftriaxone IB <1 Cefuroxime R >16 Ciprofloxacin S <0.25 Ertapenem S <0.5 Gentamicin S <2 Levofloxacin S <0.5 Meropenem S <1 Meropenem/Vaborbacta m S <2 Piperacillin/Tazobac lopes IB <8 Tobramycin S <2 Trimethoprim/Sulfame thoxazole S <0.5 S = SUSCEPTIBLE I = INTERMEDIATE R = RESISTANT BLANK = DATA NOT AVAILABLE, OR DRUG NOT ADVISABLE OR TESTED R* = RESISTANCE DUE TO EXTENDED SPECTRUM BETA-LACTAMASES ESBL = EXTENDED SPECTRUM BETA-LACTAMASE TFG = THYMIDINE-DEPENDENT STRAIN DENG = BETA-LACTAMASE POSITIVE IB = INDUCIBLE BETA-LACTAMASE. APPEARS IN PLACE OF 'S' WITH SPECIES KNOWN TO POSSESS INDUCIBLE BETA-LACTAMASES. POTENTIALLY THEY MAY BECOME RESISTANT TO ALL B-LACTAM DRUGS. PERFORMED BY: [facility] [address] [place] [address] PATHOLOGIST PATCHER JUMA XIE M.D. Normal [facility] Comment on above: Performed By: #### A DDONUAPLUS, CUU #### [address] Urine bacteria detection by automated methodOrdered By: Donn Joseph on 09-22-2022 Bacteria Auto Ql (U) None seen None Seen [facility] Urine clarity by refractomet ry automatedOrdered By: Donn Joseph on 09-22-2022 Clarity Refractometry automated (U) Cloudy Clear [facility] Urine culture routineOrdered By: Donn Joseph on 09-22-2022 Bacteria identified Cx Nom (U) [facility] Bacteria identified Cx Nom (U) [facility] Urine glucose measurement by automated test strip (mass/volume)Ordered By: Donn Joseph on 09-22-2022 Glucose Auto test strip (U) [Mass/Vol] 500 mg/dL Normal [facility] Urine hemoglobin detection b y automated test stripOrdered By: Donn Joseph on 09-22-2022 Hemoglobin Auto test strip Ql (U) Trace Negative [facility] Urine lactic acid measuremen tOrdered By: Donn Joseph on 09-22-2022 Lactate (U) [Moles/Vol] 1.0 mmol/L 0.5-2.2 [facility] Urine leukocyte esterase det ection by automated test stripOrdered By: Donn Joseph on 09-22-2022 Leukocyte esterase Auto test strip Ql (U) 2+ Negative [facility] Urine sediment renal epithel ial cell count by microscopy (number/high power field)Ordered By: Donn Joseph on 09-22-2022 Epithelial cells.renal LM.HPF (Urine sed) [#/Area] None seen [HPF] 0-1 [facility] Urobilinogen Auto test strip (U) [Mass/Vol]Ordered By: Donn Joseph on 09-22-2022 Urobilinogen (U) [Mass/Vol] Normal mg/dL Normal [facility] WBC Auto (Bld) [#/Vol]Ordere d By: Donn Joseph on 09-22-2022 WBC (Bld) [#/Vol] 8.6 10*3/uL 3.8-11.6 [facility] XR chest 1V portableon 09-22 XR chest 1V portable [facility] [address] XRay Report Signed Patient: Eliz Hewitt MR#: [id number] : 1935 Acct:[id number] Age/Sex: 86 / F ADM Date: 09/19/22 Loc: Room: [address] [place] [address] Type: ADM IN Attending Dr: Donn Joseph DO Copies to: Donn Joseph DO Ordering Provider: Donn Joseph DO Date of Service: 09/22/22 XR/XR chest 1V portable: tachypnea PORTABLE AP ERECT CHEST 1547 hours CLINICAL HISTORY: Tachypnea and lethargy COMPARISON: 09/19/2022 Median sternotomy wires and a prosthetic heart valve are present. There is minor interstitial change. There is mild developing hazy density at the right base where portions of the hemidiaphragms are indistinct. There is new opacity at the left base which obscures the hemidiaphragm. No pneumothorax is visualized. The heart is borderline enlarged. There is endplate spurring at the spine. XR/XR chest 1V portable IMPRESSION: DEVELOPING BIBASILAR PLEURAL AND/OR PARENCHYMAL CHANGE, GREATER ON THE LEFT Impression dictated by: Maddie Miner M.D.09/22/2022 3:55 PM Dictation Location: [place] [address] Transcribed By: YOU 09/22/22 1555 Dictated By: Maddie Miner MD 09/22/22 1551 Signed By: 09/22/22 1555 [facility] Yeast detection in urine sed iment by light microscopyOrdered By: Donn Joseph on 09-22-2022 Yeast LM Ql (Urine sed) None seen [HPF] None Seen [facility] pH Auto test strip (U)Ordere d By: Donn Joseph on 09-22-2022 pH (U) 5.5 [pH] 5.0-9.0 [facility] Basic Metabolic Panelon Anion gap [Moles/Vol] 10.9 mmol/L Normal 6.0-15.0 [facility] Comment on above: Performed By: #### B MP, CBC #### [facility] [address] [place] [address] [place] Calcium [Mass/Vol] 8.2 mg/dL Normal 8.2-10.2 [facility] Comment on above: Performed By: #### B MP, CBC #### [facility] [address] [place] [address] [place] Chloride [Moles/Vol] 108 mmol/L Normal 95-114 [facility] Comment on above: Performed By: #### B MP, CBC #### [facility] [address] [place] [address] [place] CO2 [Moles/Vol] 20.6 mmol/L Low 22.0-30.0 [facility] Comment on above: Performed By: #### B MP, CBC #### [facility] [address] [place] [address] [place] Creatinine [Mass/Vol] 1.09 mg/dL High 0.44-1.03 [facility] Comment on above: Performed By: #### B MP, CBC #### [facility] [address] [place] [address] [place] Creatinine Clr Calc Pharmacy 32.58 [facility] Comment on above: Result Comment: PERF ORMED BY: [place] [address] PATHOLOGIST PATCHER JUMA XIE M.D. Performed By: #### B MP, CBC #### [facility] [address] [place] [address] [place] Estimated GFR ( Khushi 58 Normal [facility] Comment on above: Result Comment: GFR estimated reference range: According to KDOQI guidelines, <60 ml/min/1.73m2 is sufficient to diagnose a patient with chronic kidney disease. Performed By: #### B MP, CBC #### [address] Estimated GFR (Non- Am 48 Normal [facility] Comment on above: Performed By: #### B MP, CBC #### [address] Glucose [Mass/Vol] 105 mg/dL Significant change up 70-100 [facility] Comment on above: Result Comment: [place] Glucose Reference Range is dependent on time and content of last meal. Glucose of more than 200 mg/dL in a nonstressed, ambulatory subject supports the diagnosis of Diabetes Mellitus. ADA recommended reference range Performed By: #### B MP, CBC #### [address] Potassium [Moles/Vol] 3.5 mmol/L Normal 3.5-5.1 [facility] Comment on above: Performed By: #### B MP, CBC #### [address] Sodium [Moles/Vol] 136 mmol/L Normal 136-146 [facility] Comment on above: Performed By: #### B MP, CBC #### [address] Urea nitrogen [Mass/Vol] 28 mg/dL High 9-23 [facility] Comment on above: Performed By: #### B MP, CBC #### [address] Complete Blood Count Auto Di ffon 09-21-2022 Basophils (Bld) [#/Vol] 0.1 10*3/uL Normal 0.0-0.2 [facility] Comment on above: Result Comment: PERF ORMED BY: [place] [address] PATHOLOGIST PATCHER JUMA XIE M.D. Performed By: #### B MP, CBC #### [facility] [address] [place] [address] [place] Basophils/100 WBC (Bld) 1.0 % Normal . [facility] Comment on above: Performed By: #### B MP, CBC #### [facility] [address] Eosinophils (Bld) [#/Vol] 0.1 10*3/uL Normal 0.0-0.45 [facility] Comment on above: Performed By: #### B MP, CBC #### [facility] [address] Eosinophils/100 WBC (Bld) 0.7 % Normal . [facility] Comment on above: Performed By: #### B MP, CBC #### [address] Erythrocyte distribution width (RBC) [Ratio] 15.7 % High 11.9-15.3 [facility] Comment on above: Performed By: #### B MP, CBC #### [address] Hematocrit (Bld) [Volume fraction] 31.3 % Low 34.0-46.4 [facility] Comment on above: Performed By: #### B MP, CBC #### [address] Hemoglobin (Bld) [Mass/Vol] 10.4 g/dL Low 11.8-15.4 [facility] Comment on above: Performed By: #### B MP, CBC #### [place] [address] [place] Lymphocytes (Bld) [#/Vol] 0.8 10*3/uL Low 1.00-4.8 [facility] Comment on above: Performed By: #### B MP, CBC #### [address] Lymphocytes/100 WBC (Bld) 7.7 % Normal . [facility] Comment on above: Performed By: #### B MP, CBC #### [place] [id number] [place] MCH (RBC) [Entitic mass] 30.3 pg Normal 24.7-34.3 [facility] Comment on above: Performed By: #### B MP, CBC #### [address] MCV (RBC) [Entitic vol] 90.7 fL Normal 80-100 [facility] Comment on above: Performed By: #### B MP, CBC #### [address] Mean Corpuscular HGB Conc 33.4 g/dL Normal 32.0-35.0 [facility] Comment on above: Performed By: #### B MP, CBC #### [address] Monocytes (Bld) [#/Vol] 0.8 10*3/uL Normal 0.0-0.8 [facility] Comment on above: Performed By: #### B MP, CBC #### [address] Monocytes/100 WBC (Bld) 7.8 % Normal . [facility] Comment on above: Performed By: #### B MP, CBC #### [address] Neutrophils (Bld) [#/Vol] 8.8 10*3/uL High 1.8-7.7 [facility] Comment on above: Performed By: #### B MP, CBC #### [address] Neutrophils/100 WBC (Bld) 82.8 % Normal . [facility] Comment on above: Performed By: #### B MP, CBC #### [address] NRBC% 0.0 /100{WBC} Normal 0-0.5 [facility] Comment on above: Performed By: #### B MP, CBC #### [address] Platelet mean volume (Bld) [Entitic vol] 8.2 fL Normal 6.3-10.7 [facility] Comment on above: Performed By: #### B MP, CBC #### [facility] [address] [place] [address] Platelets (Bld) [#/Vol] 217 10*3/uL Normal 150-450 [facility] Comment on above: Performed By: #### B MP, CBC #### [facility] [address] [place] [address] RBC (Bld) [#/Vol] 3.45 10*6/uL Low 3.60-5.[address] [facility] Comment on above: Performed By: #### B MP, CBC #### [address] WBC (Bld) [#/Vol] 10.7 10*3/uL Normal 3.8-11.[address] [facility] Comment on above: Performed By: #### B MP, CBC #### [address] Creatine Kinaseon 09-21-2022 CK [Catalytic activity/Vol] 375 U/L High [address] Comment on above: Result Comment: PERF ORMED BY: [place] [address] PATHOLOGIST PATCHER JUMA XIE M.D. Performed By: #### G LULS #### Point of Care testing , Creatine kinase [Enzymatic a ctivity/volume] in Serum or PlasmaOrdered By: Dusty Singh on 09-21-2022 CK [Catalytic activity/Vol] 375 U/L 22 [facility] ECH echo transthoracicon ECH echo transthoracic [facility] Main [place] [address] [place] [address] Echocardiogram Signed Patient: Eliz Hewitt MR#: [id number] : 1935 Acct:[id number] Age/Sex: 86 / F ADM Date: 09/19/22 Loc: Room: [address] [place] [address] Type: DIS IN Attending Dr: Donn Joseph DO Ordering Provider: Dusty Singh MD Date of Service: 09/20/2210/12/1227 [facility] echo transthoracic: syncope, murmur Copies to: MD Anisha Luna MD : 1935 Gender: Female (MM/DD/YYYY) Age: 86 Years Ordering Physician: Dusty Singh Height: 64 in Weight: 130.955 lb Performed By: DARIUSZ Mar BSA: 1.63 m2 BP: 144 / 73 mmHg HR: 77 bpm Reason For Study: syncope, murmur History: DM, HTN, TAVR + + Interpretation Summary The left ventricular wall motion is normal. Mild concentric left ventricular hypertrophy. Ejection Fraction = 60-65%. The left atrium appears moderately dilated. The right atrium is moderately dilated. The right ventricle is mildly dilated. There is mild right ventricular hypertrophy. Moderate right ventricular systolic dysfunction. 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 The aortic valve mean gradient is 37 mmHg. There is severe mitral stenosis. The mitral valve velocity significantly increased. Peak gradient measured in excess of 45 mmHg. Mean gradient in excess of 20 mmHg with calculated mitral valve area of less than 1 cm2 consistent with severe mitral stenosis There is moderate to severe tricuspid regurgitation. The right ventricular systolic pressure is 100 mmHg. Right ventricular systolic pressure is consistent with severe pulmonary hypertension. Mild pulmonic valvular regurgitation. The inferior vena cava is moderately dilated with a decrease in inspiratory collapse There is no comparison study available. Procedure/Quality: A two-dimensional transthoracic echocardiogram with color flow and Doppler was performed. The study was technically fair in quality. Left Ventricle: The left ventricular size is normal. Mild concentric left ventricular hypertrophy. Ejection Fraction = 60-65%. The left ventricular wall motion is normal. Left Atrium: The left atrium appears moderately dilated. Right Atrium: The right atrium is moderately dilated. Right Ventricle: The right ventricle is mildly dilated. There is mild right ventricular hypertrophy. Moderate right ventricular systolic dysfunction. 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 The aortic valve maximum pressure gradient is 58 mmHg. The aortic valve mean gradient is 37 mmHg. No aortic regurgitation is present. Mitral Valve: There is severe mitral stenosis. The mitral valve velocity significantly increased. Peak gradient measured in excess of 45 mmHg. Mean gradient in excess of 20 mmHg with calculated mitral valve area of less than 1 cm2 consistent with severe mitral stenosis. There is no mitral regurgitation noted. Tricuspid Valve: moderately dilated tricuspid valve annulus. There is moderate to severe tricuspid regurgitation. The right ventricular systolic pressure is 100 mmHg. Right ventricular systolic pressure is consistent with severe pulmonary hypertension. Pulmonic Valve: The pulmonic valve is normal in structure and function. Mild pulmonic valvular regurgitation. Arteries: The aortic root is normal size. Pericardium/Pleura: No pericardial effusion seen. There is no pleural effusion. IVC/Hepatic Veins: The inferior vena cava is moderately dilated with a decrease in inspiratory collapse. MMode/2D Measurements Calculations IVSd (0.7-1.1 cm): 1.43 cm LVIDd (3.7-5.4 cm): 3.3 cm LVPWd (0.7-1.1 cm): 1.36 cm LVIDs (2.3-3.6 cm): 2.08 cm LA dimension (2.3-4.0 cm): 4.6 cm Ao root diam (2.0-3.2 cm): 2.9 cm FS: 36.9 % Ao root area: 6.6 cm2 EDV(Teich): 44.3 ml LVOT diam: 1.82 cm ESV(Teich): 14.1 ml LVOT area: 2.6 cm2 EF(Teich): 68.1 % LAV(MOD-sp2): 61.7 ml LAV(MOD-sp4): 58.2 ml LA A2 area: 18.6 cm2 LA A4 area: 20.2 cm2 LA length (vol): 5.7 cm LA vol: 56.3 ml LA vol index: 34.5 ml/m2 Doppler Measurements Calculations MV E max maday: 261.0 cm/sec Ao V2 max: 382.2 cm/sec MV A max maday: 205.7 cm/sec Ao max P.4 mmHg MR max maday: 600.9 cm/sec Ao mean P.9 mmHg MV V2 VTI: 96.3 cm Ao V2 mean: 292.9 cm/sec MV P1/2t: 104.9 msec Ao V2 VTI: 78.5 cm MV dec slope: 981.3 cm/sec?? SIMONE(I,D): 0.87 cm2 E/E' lat: 30.0 SIMONE(V,D): 0.85 cm2 E/E' med: 44.4 TV max P.0 mmHg LV V1 max: 124.6 cm/sec TR max maday: 508.4 cm/sec LV V1 max P.2 mmHg TR max PG (more content not included)... Normal [facility] Glucose Poct Glucometerson 0 09-21-2022 Glucose [Mass/Vol] 268 mg/dL Normal [facility] Comment on above: Result Comment: [facility] Glucose Reference Range is dependent on time and content of last meal. Glucose of more than 200 mg/dL in a nonstressed, ambulatory subject supports the diagnosis of Diabetes Mellitus. PERFORMED BY: [address] [place] [address] PATHOLOGIST PATCHER JUMA XIE M.D. Performed By: #### G LULS #### Point of Care testing , Glucose [Mass/Vol] 276 mg/dL Normal [facility] Comment on above: Result Comment: [facility] Glucose Reference Range is dependent on time and content of last meal. Glucose of more than 200 mg/dL in a nonstressed, ambulatory subject supports the diagnosis of Diabetes Mellitus. PERFORMED BY: [facility] [address] [facility] [place] [address] PATHOLOGIST PATCHER JUMA XIE M.D. Performed By: #### G LULS #### Point of Care testing , Glucose [Mass/Vol] 187 mg/dL Normal [facility] Comment on above: Result Comment: [facility] Glucose Reference Range is dependent on time and content of last meal. Glucose of more than 200 mg/dL in a nonstressed, ambulatory subject supports the diagnosis of Diabetes Mellitus. PERFORMED BY: [facility] [address] [place] [id number] PATHOLOGIST PATCHER JUMA XIE M.D. Performed By: #### G LULS #### Point of Care testing , Glucose [Mass/Vol] 123 mg/dL Normal [facility] Comment on above: Result Comment: [facility] Glucose Reference Range is dependent on time and content of last meal. Glucose of more than 200 mg/dL in a nonstressed, ambulatory subject supports the diagnosis of Diabetes Mellitus. PERFORMED BY: [facility] [address] [place] [address] PATHOLOGIST PATCHER JUMA XIE M.D. Performed By: #### G LULS #### Point of Care testing , Basic Metabolic Panelon 0 Anion gap [Moles/Vol] 14.6 mmol/L Normal 6.0-15.0 [facility] Comment on above: Performed By: #### G LULS #### Point of Care testing , Calcium [Mass/Vol] 8.6 mg/dL Normal 8.2-10.2 [facility] Comment on above: Performed By: #### G LULS #### Point of Care testing , Chloride [Moles/Vol] 102 mmol/L Normal 95-114 [facility] Comment on above: Performed By: #### G LULS #### Point of Care testing , CO2 [Moles/Vol] 20.1 mmol/L Low 22.0-30.0 [facility] Comment on above: Performed By: #### G LULS #### Point of Care testing , Creatinine [Mass/Vol] 1.32 mg/dL High 0.44-1.03 [facility] Comment on above: Performed By: #### G LULS #### Point of Care testing , Creatinine Clr Calc Pharmacy 26.91 Normal [facility] Comment on above: Result Comment: PERF ORMED BY: [facility] [address] [place] [address] PATHOLOGIST PATCHER JUMA XIE M.D. Performed By: #### G LULS #### Point of Care testing , Estimated GFR ( Khushi 46 [facility] Comment on above: Result Comment: GFR estimated reference range: According to KDOQI guidelines, <60 ml/min/1.73m2 is sufficient to diagnose a patient with chronic kidney disease. Performed By: #### G LULS #### Point of Care testing , Estimated GFR (Non- Am 38 [facility] Comment on above: Performed By: #### G LULS #### Point of Care testing , Glucose [Mass/Vol] 296 mg/dL High 70-100 [facility] Comment on above: Result Comment: [place] Glucose Reference Range is dependent on time and content of last meal. Glucose of more than 200 mg/dL in a nonstressed, ambulatory subject supports the diagnosis of Diabetes Mellitus. ADA recommended reference range Performed By: #### G LULS #### Point of Care testing , Potassium [Moles/Vol] 3.7 mmol/L Normal 3.5-5.1 [facility] Comment on above: Performed By: #### G LULS #### Point of Care testing , Sodium [Moles/Vol] 133 mmol/L Low 136-146 [facility] Comment on above: Performed By: #### G LULS #### Point of Care testing , Urea nitrogen [Mass/Vol] 29 mg/dL High 9-23 [facility] Comment on above: Performed By: #### G LULS #### Point of Care testing , [facility] cervical spine wo [facility] [place] [address] CT Scan Report Signed Patient: Eliz Hewitt MR#: [id number] : 1935 Acct:[id number] Age/Sex: 86 / F ADM Date: 09/19/22 Loc: Room: [address] [place] [address] Type: ADM IN Attending Dr: Dusty Singh MD Copies to: MD Brad Luna, Ordering Provider: Brad Harper DO Date of Service: 09/19/22 CT/CT cervical spine wo con: fall ([id number]) CT/CT facial bones wo con: fall, L periorbital ecchymosis ([id number]) CT/CT head/brain wo con: fall CT BRAIN/FACIAL BONES WITHOUT CONTRAST: CLINICAL HISTORY: Fall. Left periorbital bruising COMPARISON: None TECHNIQUE: Contiguous axial unenhanced images were obtained through the brain and facial bones. This CT exam was performed using one or more following dose reduction techniques: Automated exposure control, adjustment of the mA and/or kV according to patient size, or use of iterative reconstruction technique. FINDINGS: Brain: There is no evidence of midline shift, intra or extra-axial fluid collection, hemorrhage or CT evidence of stroke. Cortical atrophy with chronic microvascular ischemic changes. Basal ganglia calcifications. Posterior fossa appears unremarkable. The surrounding soft tissues are normal. Facial bones: Suboptimal evaluation due to motion. No nasal bone fracture. No facial bone fracture is seen. No definite mandibular fracture. Degenerative changes of the temporomandibular joints. Polyp versus mucus retention cyst right maxillary sinus. Mastoid air cells are well pneumatized. No orbital fracture. Intraorbital contents appear unremarkable. No significant soft tissue swelling. Fossa of [place] appears unremarkable. CT/CT head/brain wo con IMPRESSION: NO ACUTE FACIAL BONE INJURY. NO ACUTE INTRACRANIAL ABNORMALITY. CT CERVICAL SPINE WITHOUT CONTRAST WITH 3D RECONSTRUCTIONS: CLINICAL HISTORY: Fall. COMPARISON: None TECHNIQUE: Spiral axial unenhanced images were obtained through the cervical spine. Sagittal, coronal and 3D volume-rendered reconstructions were also reviewed. This CT exam was performed using one or more following dose reduction techniques: Automated exposure control, adjustment of the mA and/or kV according to patient size, or use of iterative reconstruction technique. FINDINGS: No acute fracture. Vertebral body heights appear maintained. Diffuse mild spondylosis with endplate, uncovertebral and facet joint degenerative change. No prevertebral soft tissue swelling. Visualized lung apices demonstrate no acute findings. IMPRESSION: NO CERVICAL SPINE FRACTURE Impression dictated by: Randy Vickers Jr. D.OArpit09/20/2022 8:41 AM Dictation Location: [place] [address] Transcribed By: [facility] 09/20/22 08 Dictated By: Randy Vickers Jr, DO 09/20/22 0835 Signed By: 09/20/22840 Normal [facility] Complete Blood Count Auto Di ffon 09-20-2022 Basophils (Bld) [#/Vol] 0.1 10*3/uL Normal 0.0-0.2 [facility] Comment on above: Result Comment: PERF ORMED BY: [facility] [place] [address] PATHOLOGIST PATCHER JUMA XIE M.D. Performed By: #### G LULS #### Point of Care testing , Basophils/100 WBC (Bld) 0.9 % Normal . [facility] Comment on above: Performed By: #### G LULS #### Point of Care testing , Eosinophils (Bld) [#/Vol] 0.1 10*3/uL Normal 0.0-0.45 [facility] Comment on above: Performed By: #### G LULS #### Point of Care testing , Eosinophils/100 WBC (Bld) 0.7 % Normal . [facility] Comment on above: Performed By: #### G LULS #### Point of Care testing , Erythrocyte distribution width (RBC) [Ratio] 15.5 % High 11.9-15.3 [facility] Comment on above: Performed By: #### G LULS #### Point of Care testing , Hematocrit (Bld) [Volume fraction] 31.0 % Low 34.0-46.4 [facility] Comment on above: Performed By: #### G LULS #### Point of Care testing , Hemoglobin (Bld) [Mass/Vol] 10.5 g/dL Low 11.8-15.4 [facility] Comment on above: Performed By: #### G LULS #### Point of Care testing , Lymphocytes (Bld) [#/Vol] 1.0 10*3/uL Normal 1.00-4.8 [facility] Comment on above: Performed By: #### G LULS #### Point of Care testing , Lymphocytes/100 WBC (Bld) 9.6 % Normal . [facility] Comment on above: Performed By: #### G LULS #### Point of Care testing , MCH (RBC) [Entitic mass] 30.1 pg Normal 24.7-34.3 [facility] Comment on above: Performed By: #### G LULS #### Point of Care testing , MCV (RBC) [Entitic vol] 88.9 fL Normal 80-100 [facility] Comment on above: Performed By: #### G LULS #### Point of Care testing , Mean Corpuscular HGB Conc 33.8 g/dL Normal 32.0-35.0 [facility] Comment on above: Performed By: #### G ESTELALS #### Point of Care testing , Monocytes (Bld) [#/Vol] 0.7 10*3/uL Normal 0.0-0.8 [facility] Comment on above: Performed By: #### G ESTELALS #### Point of Care testing , Monocytes/100 WBC (Bld) 7.3 % Normal . [facility] Comment on above: Performed By: #### G ESTELALS #### Point of Care testing , Neutrophils (Bld) [#/Vol] 8.1 10*3/uL High 1.8-7.7 [facility] Comment on above: Performed By: #### G ESTELALS #### Point of Care testing , Neutrophils/100 WBC (Bld) 81.5 % Normal . [facility] Comment on above: Performed By: #### G ESTELALS #### Point of Care testing , NRBC% 0.0 /100{WBC} Normal 0-0.5 [facility] Comment on above: Performed By: #### G LULS #### Point of Care testing , Platelet mean volume (Bld) [Entitic vol] 8.1 fL Normal 6.3-10.7 [facility] Comment on above: Performed By: #### G ESTELALS #### Point of Care testing , Platelets (Bld) [#/Vol] 271 10*3/uL Normal 150-450 [facility] Comment on above: Performed By: #### G LULS #### Point of Care testing , RBC (Bld) [#/Vol] 3.49 10*6/uL Low 3.60-5.[address] [facility] Comment on above: Performed By: #### G ESTELALS #### Point of Care testing , WBC (Bld) [#/Vol] 10.0 10*3/uL Normal 3.8-11.[address] [facility] Comment on above: Performed By: #### G ESTELALS #### Point of Care testing , Creatine Kinaseon 09-20-2022 CK [Catalytic activity/Vol] 634 U/L High 22-269 [facility] Comment on above: Performed By: #### G ESTELALS #### Point of Care testing , Creatinine Kinase MBon 09-20 CK.MB [Mass/Vol] 16.8 ng/mL High 0.6-6.3 [facility] Comment on above: Performed By: #### G ESTELALS #### Point of Care testing , CKMB Relative Index 2.6 % High 0.00-2.[address] [facility] Comment on above: Performed By: #### G ESTELALS #### Point of Care testing , Glucose Poct Glucometerson 0 09-20-2022 Glucose [Mass/Vol] 182 mg/dL Normal [facility] Comment on above: Result Comment: [facility] Glucose Reference Range is dependent on time and content of last meal. Glucose of more than 200 mg/dL in a nonstressed, ambulatory subject supports the diagnosis of Diabetes Mellitus. PERFORMED BY: [facility] [address] [facility] [place] [id number] PATHOLOGIST PATCHER JUMA XIE M.D. Performed By: #### G LULS ####Point of Care testing, Commemt1 Glu2: Cleaned Meter Normal [facility] Comment on above: Result Comment: PERF ORMED BY: [facility] [address] [facility] [place] [address] PATHOLOGIST PATCHER JUMA XIE M.D. Performed By: #### G LULS #### Point of Care testing , Glucose [Mass/Vol] 241 mg/dL Normal [facility] Comment on above: Result Comment: [place] [facility] Glucose Reference Range is dependent on time and content of last meal. Glucose of more than 200 mg/dL in a nonstressed, ambulatory subject supports the diagnosis of Diabetes Mellitus. Performed By: #### G LULS #### Point of Care testing , Glucose [Mass/Vol] 207 mg/dL Normal [facility] Comment on above: Result Comment: [place] [facility] Glucose Reference Range is dependent on time and content of last meal. Glucose of more than 200 mg/dL in a nonstressed, ambulatory subject supports the diagnosis of Diabetes Mellitus. PERFORMED BY: [facility] [address] [facility] [place] [address] PATHOLOGIST PATCHER JUMA XIE M.D. Performed By: #### G LULS ####Point of Care testing, Commemt1 Glu2: Cleaned Meter Normal [facility] Comment on above: Result Comment: PERF ORMED BY: [facility] [address] [place] [address] PATHOLOGIST PATCHER JUMA XIE M.D. Performed By: #### G LULS #### Point of Care testing , Glucose [Mass/Vol] 313 mg/dL Normal [facility] Comment on above: Result Comment: [place] [facility] Glucose Reference Range is dependent on time and content of last meal. Glucose of more than 200 mg/dL in a nonstressed, ambulatory subject supports the diagnosis of Diabetes Mellitus. Performed By: #### G LULS #### Point of Care testing , Serum or plasma creatine kin ase MB (CKMB)/total creatine kinase (CK) ratio by calculaOrdered By: Donn Joseph on 09-20-2022 CK.MB Calc [Catalytic fraction] 2.6 % 0.00-2.50 [facility] Serum or plasma creatine kin ase MB measurement (mass/volume)Ordered By: Donn Joseph on 09-20-2022 CK.MB [Mass/Vol] 16.8 ng/mL 0.6-6.3 [facility] Troponin I High Sensitivityo n 09-20-2022 Troponin I High Sensitivity 155 pg/mL Off scale high 0-15 [facility] Comment on above: Result Comment: Resu lts called at 0654 on 09/20/22 PERFORMED BY: [address] [address] PATHOLOGIST PATCHER JUMA XIE M.D. Performed By: #### G LULS #### Point of Care testing , Troponin I High Sensitivity 138 pg/mL Off scale high 0-15 [facility] Comment on above: Result Comment: Results called at 0056 on 09/20/22 PERFORMED BY: [address] [address] PATHOLOGIST PATCHER JUMA XIE M.D. Performed By: #### G LULS #### Point of Care testing , Troponin I.cardiac [Mass/vol ume] in Serum or Plasma by High sensitivity methodOrdered By: Donn Joseph on 09-20-2022 Troponin I.cardiac High sensitivity method [Mass/Vol] 155 pg/mL 015 [facility] Comment on above: Results calledat 065 4 on 09/20/22 XR ankle LT min 3V*on 2022 XR ankle LT min 3V* [facility] Main [address] [address] XRay Report Signed Patient: Eliz Hewitt MR#: [id number] : 1935 Acct:[id number] Age/Sex: 86 / F ADM Date: 09/19/22 Loc: Room: [address] [place] [address] Type: ADM IN Attending Dr: Dusty Singh MD Copies to: MD Malachi Luna DO Scotty J Fulton, DO Ordering Provider: Malachi Jimenez DO; Brad Harper DO Date of Service: 09/19/22 XR/XR ankle LT min 3V*: Fall ([id number]) XR/XR hip RT min 2V(w/wo pelvis)*: fall, pain, ecchymosis ([id number]) XR/XR knee LT 2V: Fall ([id number]) XR/XR chest 1V: Fall ([id number]) XR/XR hand LT min 3V*: fall, ecchymosis ([id number]) XR/XR shoulder RT min 2V*: Fall ([id number]) XR/XR hand LT min 3V*: post splinting, reduction RIGHT HIP - 2 views: 1 view pelvis, chest one view, right shoulder 3 views, left knee 2 views, left ankle 3 views left hand 4 views prereduction, left hand 3 views postreduction CLINICAL HISTORY: Fall. Bruising to entire left hand with swelling to left knee. Bruising to superior/anterior right shoulder. Right hip pain. COMPARISON: None FINDINGS: Right hip/pelvis: Richardson catheter is in place. Bones are grossly demineralized limiting evaluation for fracture. Mild degenerative changes of the hips without acute bony process. Additional degenerative changes are seen involving the visualized lower lumbar spine, SI joints and pubic symphysis. Vascular calcifications are noted. Right shoulder: No acute bony process. Mild degenerative changes of the right AC joint. Glenohumeral joint appears grossly unremarkable. 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 Heart is normal in size. Lungs are clear. No free air. Left knee: Vascular calcifications. Mild soft tissue swelling. Moderate degenerative changes without acute bony process. Left ankle: Vascular calcifications. Ankle mortise appears intact without acute bony process. Lower leg soft tissue swelling. Left hand prereduction: A mildly displaced fracture is seen involving the fourth metacarpal neck. There is associated soft tissue swelling. Scattered degenerative changes worst at the CMC joint of the thumb. IV site is in place. Left hand post reduction: Splint material now is in place. Improved alignment of the fourth metacarpal fracture when compared to the prior study. XR/XR hip RT min 2V(w/wo pelvis)* IMPRESSION: FOURTH METACARPAL FRACTURE OF THE LEFT HAND WITH IMPROVED ALIGNMENT ON POSTREDUCTION IMAGING. NO ACUTE FINDINGS ARE SEEN INVOLVING THE RIGHT HIP/PELVIS, RIGHT SHOULDER, CHEST, LEFT KNEE OR ANKLE.. Impression dictated by: Randy Vickers Jr., D.OArpit09/20/2022 9:30 AM Dictation Location: [place] [address] Transcribed By: YOU 01/10/12 929 Dictated By: Randy Vickers Jr, DO 09/20/22922 Signed By: 09/20/22929 Normal [facility] Automated erythrocytes count in urine sediment (number/area)Ordered By: Brad Harper on 09-19-2022 RBC Auto (Urine sed) [#/Area] 5-9 [HPF] 0-4 [facility] Automated leukocytes count i n urine sediment (number/area)Ordered By: Brad Harper on 09-19-2022 WBC Auto (Urine sed) [#/Area] 1-2 [HPF] 0-4 [facility] Automated urine color determ inationOrdered By: Brad Harper on 09-19-2022 Color (U) Yellow Normal Yellow [facility] Comment on above: Order Comment: Name Collection Type:: Richardson Catheter Performed By: #### G LULS #### Point of Care testing , Basophils Auto (Bld) [#/Vol] Ordered By: Brad Harper on 09-19-2022 Basophils (Bld) [#/Vol] 0.1 10*3/uL 0.0-0.2 [facility] Basophils/100 WBC Auto (Bld) Ordered By: Brad Harper on 09-19-2022 Basophils/100 WBC (Bld) 0.6 % . [facility] Bilirubin Test strip Ql (U)O rdered By: Brad Harper on 09-19-2022 Bilirubin Ql (U) Negative Negative [facility] Body fluid albumin measureme nt (mass/volume)Ordered By: Brad Harper on 09-19-2022 Albumin (Body fld) [Mass/Vol] 3.5 g/dL 3.2-5.5 [facility] Complete Blood Count Auto Di ffon 09-19-2022 Basophils (Bld) [#/Vol] 0.1 10*3/uL Normal 0.0-0.2 [facility] Comment on above: Result Comment: PERF ORMED BY: [facility] [address] [place] [address] PATHOLOGIST PATCHER JUMA XIE M.D. Performed By: #### L IPASE, HS TROP, CMP, CK, CBC ####[address] Basophils/100 WBC (Bld) 0.6 % Normal . [facility] Comment on above: Performed By: #### L IPASE, HS TROP, CMP, CK, CBC ####[address] Eosinophils (Bld) [#/Vol] 0.0 10*3/uL Normal 0.0-0.45 [facility] Comment on above: Performed By: #### L IPASE, HS TROP, CMP, CK, CBC ####[address] Eosinophils/100 WBC (Bld) 0.1 % Normal . [facility] Comment on above: Performed By: #### L IPASE, HS TROP, CMP, CK, CBC ####[address] Erythrocyte distribution width (RBC) [Ratio] 15.5 % High 11.9-15.3 [facility] Comment on above: Performed By: #### L IPASE, HS TROP, CMP, CK, CBC ####[address] Hematocrit (Bld) [Volume fraction] 34.0 % Normal 34.0-46.4 [facility] Comment on above: Performed By: #### L IPASE, HS TROP, CMP, CK, CBC ####[address] Hemoglobin (Bld) [Mass/Vol] 11.3 g/dL Low 11.8-15.4 [facility] Comment on above: Performed By: #### L IPASE, HS TROP, CMP, CK, CBC ####[address] Lymphocytes (Bld) [#/Vol] 0.5 10*3/uL Low 1.00-4.8 [facility] Comment on above: Performed By: #### L IPASE, HS TROP, CMP, CK, CBC ####[address] Lymphocytes/100 WBC (Bld) 4.4 % Normal . [facility] Comment on above: Performed By: #### L IPASE, HS TROP, CMP, CK, CBC ####[address] MCH (RBC) [Entitic mass] 29.7 pg Normal 24.7-34.3 [facility] Comment on above: Performed By: #### L IPASE, HS TROP, CMP, CK, CBC ####[address] MCV (RBC) [Entitic vol] 89.4 fL Normal 80-100 [facility] Comment on above: Performed By: #### L IPASE, HS TROP, CMP, CK, CBC ####[address] Mean Corpuscular HGB Conc 33.2 g/dL Normal 32.0-35.0 [facility] Comment on above: Performed By: #### L IPASE, HS TROP, CMP, CK, CBC ####[address] Monocytes (Bld) [#/Vol] 0.7 10*3/uL Normal 0.0-0.8 [facility] Comment on above: Performed By: #### L IPASE, HS TROP, CMP, CK, CBC ####[address] Monocytes/100 WBC (Bld) 18.24 % Normal 0.00-20.00 [facility] Comment on above: Performed By: #### L IPASE, HS TROP, CMP, CK, CBC ####[address] Monocytes/100 WBC (Bld) 6.7 % Normal . [facility] Comment on above: Performed By: #### L IPASE, HS TROP, CMP, CK, CBC ####[address] Neutrophils (Bld) [#/Vol] 9.3 10*3/uL High 1.8-7.7 [facility] Comment on above: Performed By: #### L IPASE, HS TROP, CMP, CK, CBC ####[address] Neutrophils/100 WBC (Bld) 88.2 % Normal . [facility] Comment on above: Performed By: #### L IPASE, HS TROP, CMP, CK, CBC ####[address] NRBC% 0.0 /100{WBC} Normal 0-0.5 [facility] Comment on above: Performed By: #### L IPASE, HS TROP, CMP, CK, CBC ####[address] Platelet mean volume (Bld) [Entitic vol] 7.8 fL Normal 6.3-10.7 [facility] Comment on above: Performed By: #### L IPASE, HS TROP, CMP, CK, CBC ####[address] Platelets (Bld) [#/Vol] 285 10*3/uL Normal 150-450 [facility] Comment on above: Performed By: #### L IPASE, HS TROP, CMP, CK, CBC ####[address] RBC (Bld) [#/Vol] 3.81 10*6/uL Normal 3.60-5.[address] [facility] Comment on above: Performed By: #### L IPASE, HS TROP, CMP, CK, CBC ####[address] WBC (Bld) [#/Vol] 10.6 10*3/uL Normal 3.8-11.[address] [facility] Comment on above: Performed By: #### L IPASE, HS TROP, CMP, CK, CBC ####[address] [address] [facility] Comprehensive Metabolic Pane lc 09-19-2022 Albumin [Mass/Vol] 3.5 g/dL Normal 3.2-5.5 [facility] Comment on above: Performed By: #### L IPASE, HS TROP, CMP, CK, CBC ####[address] [address] [facility] Albumin/Globulin [Mass ratio] 0.9 {ratio} Normal [facility] Comment on above: Performed By: #### L IPASE, HS TROP, CMP, CK, CBC ####[address] [address] [facility] ALP [Catalytic activity/Vol] 100 U/L High 32-92 [facility] Comment on above: Performed By: #### L IPASE, HS TROP, CMP, CK, CBC ####[place] [id number] [facility] ALT [Catalytic activity/Vol] 19 U/L Normal 10-60 [facility] Comment on above: Performed By: #### L IPASE, HS TROP, CMP, CK, CBC ####[place] [id number] [facility] Anion gap [Moles/Vol] 18.0 mmol/L High 6.0-15.0 [facility] Comment on above: Performed By: #### L IPASE, HS TROP, CMP, CK, CBC ####[place] [id number] [facility] AST [Catalytic activity/Vol] 44 U/L High 10-42 [facility] Comment on above: Performed By: #### L IPASE, HS TROP, CMP, CK, CBC ####[place] [id number] [facility] Bilirubin [Mass/Vol] 1.1 mg/dL Normal 0.3-1.2 [facility] Comment on above: Performed By: #### L IPASE, HS TROP, CMP, CK, CBC ####[place] [id number] [facility] Calcium [Mass/Vol] 9.0 mg/dL Normal 8.2-10.2 [facility] Comment on above: Performed By: #### L IPASE, HS TROP, CMP, CK, CBC ####[address] Chloride [Moles/Vol] 99 mmol/L Normal 95-114 [facility] Comment on above: Performed By: #### L IPASE, HS TROP, CMP, CK, CBC ####[address] CO2 [Moles/Vol] 20.8 mmol/L Low 22.0-30.0 [facility] Comment on above: Performed By: #### L IPASE, HS TROP, CMP, CK, CBC ####[address] Creatinine [Mass/Vol] 1.09 mg/dL High 0.44-1.03 [facility] Comment on above: Performed By: #### L IPASE, HS TROP, CMP, CK, CBC ####[address] Creatinine Clr Calc Pharmacy 30.82 [facility] Comment on above: Performed By: #### L IPASE, HS TROP, CMP, CK, CBC ####[address] Estimated GFR ( Khushi 58 [facility] Comment on above: Result Comment: GFR estimated reference range: According to KDOQI guidelines, <60 ml/min/1.73m2 is sufficient to diagnose a patient with chronic kidney disease. Performed By: #### L IPASE, HS TROP, CMP, CK, CBC ####[address] Estimated GFR (Non- Am 48 [facility] Comment on above: Performed By: #### L IPASE, HS TROP, CMP, CK, CBC ####[address] Globulin (S) [Mass/Vol] 4.1 g/dL [facility] Comment on above: Performed By: #### L IPASE, HS TROP, CMP, CK, CBC ####[place] [id number] [facility] Glucose [Mass/Vol] 348 mg/dL High 70-100 [facility] Comment on above: Result Comment: [place] Glucose Reference Range is dependent on time and content of last meal. Glucose of more than 200 mg/dL in a nonstressed, ambulatory subject supports the diagnosis of Diabetes Mellitus. ADA recommended reference range Performed By: #### L IPASE, HS TROP, CMP, CK, CBC ####[address] Potassium [Moles/Vol] 3.8 mmol/L Normal 3.5-5.1 [facility] Comment on above: Performed By: #### L IPASE, HS TROP, CMP, CK, CBC ####[place] [id number] [facility] Protein [Mass/Vol] 7.6 g/dL Normal 6.1-7.9 [facility] Comment on above: Performed By: #### L IPASE, HS TROP, CMP, CK, CBC ####[place] [address] [facility] Sodium [Moles/Vol] 134 mmol/L Low 136-146 [facility] Comment on above: Performed By: #### L IPASE, HS TROP, CMP, CK, CBC ####[place] [address] [facility] Urea nitrogen [Mass/Vol] 23 mg/dL Normal 9-23 [facility] Comment on above: Performed By: #### L IPASE, HS TROP, CMP, CK, CBC ####[place] [id number] [facility] Creatine Kinaseon 09-19-2022 CK [Catalytic activity/Vol] 745 U/L High 22-269 [facility] Comment on above: Performed By: #### L IPASE, HS TROP, CMP, CK, CBC ####[address] [place] [address] [facility] Creatine kinase [Enzymatic a ctivity/volume] in Serum or PlasmaOrdered By: Brad Harper on 09-19-2022 CK [Catalytic activity/Vol] 745 U/L [facility] Creatinine and Glomerular fi ltration rate.predicted panel (S/P/Bld)Ordered By: Brad Harper on 09-19-2022 Creatinine [Mass/Vol] 1.09 mg/dL 0.44-1.03 [facility] Dipstick and Microscopicon 1 Appearance (U) Clear Normal Clear [facility] Comment on above: Order Comment: Name Collection Type:: Richardson Catheter Performed By: #### G LULS #### Point of Care testing , Bacteria,Urine None Seen Normal None Seen [facility] Comment on above: Order Comment: Name Collection Type:: Richardson Catheter Performed By: #### G LULS #### Point of Care testing , Bilirubin,Urine Negative Normal Negative [facility] Comment on above: Order Comment: Name Collection Type:: Richardson Catheter Performed By: #### G LULS #### Point of Care testing , Glucose Ql (U) >=1000 High Normal [facility] Comment on above: Order Comment: Name Collection Type:: Richardson Catheter Performed By: #### G LULS #### Point of Care testing , Hyaline Casts,Urine 0-8 Normal 0-[address] [facility] Comment on above: Order Comment: Name Collection Type:: Richardson Catheter Result Comment: PERF ORMED BY: [facility] [address] [place] [address] PATHOLOGIST PATCHER JUMA XIE M.D. Performed By: #### G LULS #### Point of Care testing , Ketones Ql (U) 1+ High Negative [facility] Comment on above: Order Comment: Name Collection Type:: Richardson Catheter Performed By: #### G LULS #### Point of Care testing , Leukocyte esterase Test strip Ql (U) Negative Normal Negative [facility] Comment on above: Order Comment: Name Collection Type:: Richardson Catheter Performed By: #### G LULS #### Point of Care testing , Nitrite,Urine Negative Normal Negative [facility] Comment on above: Order Comment: Name Collection Type:: Richardson Catheter Performed By: #### G LULS #### Point of Care testing , Occult Blood,Urine 2+ High Negative [facility] Comment on above: Order Comment: Name Collection Type:: Richardson Catheter Result Comment: PERF ORMED BY: [place] [address] PATHOLOGIST PATCHER JUMA XIE M.D. Performed By: #### G LULS #### Point of Care testing , RBC,Urine 5-9 High 0-4 [facility] Comment on above: Order Comment: Name Collection Type:: Richardson Catheter Performed By: #### G LULS #### Point of Care testing , Specificy [place],Urine 1.026 Normal 1.001-1.030 [facility] Comment on above: Order Comment: Name Collection Type:: Richardson Catheter Performed By: #### G LULS #### Point of Care testing , Squamous Epithelial Cell,Urine 0-1 Normal 0-2 [facility] Comment on above: Order Comment: Name Collection Type:: Richardson Catheter Performed By: #### G LULS #### Point of Care testing , Urobilinogen,Urine Normal Normal Normal [facility] Comment on above: Order Comment: Name Collection Type:: Richardson Catheter Performed By: #### G LULS #### Point of Care testing , WBC,Urine 1-2 Normal 0-4 [facility] Comment on above: Order Comment: Name Collection Type:: Richardson Catheter Performed By: #### G LULS #### Point of Care testing , ECG 12 lead ECGon 09-19-2022 ECG 12 lead ECG [facility] [address] Electrocardiograph Report Signed Patient: Eliz Hewitt MR#: [id number] : 1935 Acct:[id number] Age/Sex: 86 / F ADM Date: 09/19/22 Loc: Room: 0J3670-9 Type: DIS IN Attending Dr: Donn Joseph DO Ordering Provider: Brad Harper DO Date of Service: 09/19/22 ECG/ECG 12 lead ECG: Fall Copies to: Test Reason : Blood Pressure : 175/074 mmHG Vent. Rate : 078 BPM Atrial Rate : 078 BPM P-R Int : 186 ms QRS Dur : 102 ms QT Int : 414 ms P-R-T Axes : 060 083 072 degrees QTc Int : 471 ms Normal sinus rhythm Normal ECG No previous ECGs available Confirmed by Brad Harper DO ([id number]) on 09/19/2022 10:01:59 PM Referred By: Electronically Signed By:Brad Harper DO Transcribed By: MUS Signed By Brad Harper DO 09/19 Normal [facility] Eosinophils Auto (Bld) [#/Vo l]Ordered By: Brad Harper on 09-19-2022 Eosinophils (Bld) [#/Vol] 0.0 10*3/uL 0.0-0.45 [facility] Eosinophils/100 WBC Auto (Bl d)Ordered By: Brad Harper on 09-19-2022 Eosinophils/100 WBC (Bld) 0.1 % . [facility] Erythrocyte distribution wid th Auto (RBC) [Ratio]Ordered By: Brad Harper on 09-19-2022 Erythrocyte distribution width (RBC) [Ratio] 15.5 % 11.9-15.3 [facility] Estimated glomerular filtrat ion rate (GFR) non- AmericanOrdered By: Brad Harper on 09-19-2022 GFR/1.73 sq M.predicted among non-blacks MDRD (S/P/Bld) [Vol rate/Area] 48 mL/Min [facility] Globulin Calc (S) [Mass/Vol] Ordered By: Brad Harper on 09-19-2022 Globulin (S) [Mass/Vol] 4.1 g/dL [facility] Hematocrit Auto (Bld) [Volum e fraction]Ordered By: Brad Harper on 09-19-2022 Hematocrit (Bld) [Volume fraction] 34.0 % 34.0-46.4 [facility] Hemoglobin [Mass/volume] in BloodOrdered By: Brad Harper on 09-19-2022 Hemoglobin (Bld) [Mass/Vol] 11.3 g/dL 11.8-15.4 [facility] Ketones Auto test strip (U) [Mass/Vol]Ordered By: Brad Harper on 09-19-2022 Ketones (U) [Mass/Vol] 1+ [facility] - Chemistry and C hemistry - challengeOrdered By: Brad Harper on 09-19-2022 Lipase [Catalytic activity/Vol] 26.0 U/L [facility] Laboratory - UrinalysisOrder ed By: Brad Harper on 09-19-2022 Hyaline casts LM Ql (Urine sed) 0-8 [LPF] 0-8 [facility] Leukocytes [#/volume] correc fern for nucleated erythrocytes in Blood by Automated counOrdered By: Brad Harper on 09-19-2022 WBC corrected for nucl RBC Auto (Bld) [#/Vol] 10.6 10*3/uL 3.8-11.6 [facility] Lipaseon 09-19-2022 Lipase [Catalytic activity/Vol] 26.0 U/L Normal [facility] Comment on above: Result Comment: PERF ORMED BY: [facility] [address] [place] [address] PATHOLOGIST PATCHER JUMA XIE M.D. Performed By: #### L IPASE, HS TROP, CMP, CK, CBC ####[facility] [id number] Lymphocytes Auto (Bld) [#/Vo l]Ordered By: Brad Harper on 09-19-2022 Lymphocytes (Bld) [#/Vol] 0.5 10*3/uL 1.00-4.8 [facility] Lymphocytes/100 WBC Auto (Bl d)Ordered By: Brad Harper on 09-19-2022 Lymphocytes/100 WBC (Bld) 4.4 % . [facility] MCH Auto (RBC) [Entitic mass ]Ordered By: Brad Harper on 09-19-2022 MCH (RBC) [Entitic mass] 29.7 pg 24.7-34.3 [facility] MCHC Auto (RBC) [Mass/Vol]Or dered By: Brad Harper on 09-19-2022 MCHC (RBC) [Mass/Vol] 33.2 g/dL 32.0-35.0 [facility] MCV Auto (RBC) [Entitic vol] Ordered By: Brad Harper on 09-19-2022 MCV (RBC) [Entitic vol] 89.4 fL 80-100 [facility] Monocyte distribution width [Entitic volume] in Blood by AutomatedOrdered By: Brad Harper on 09-19-2022 Monocyte distribution width Auto (Bld) [Entitic vol] 18.24 % 0.00-20.00 [facility] Monocytes Auto (Bld) [#/Vol] Ordered By: Brad Harper on 09-19-2022 Monocytes (Bld) [#/Vol] 0.7 10*3/uL 0.0-0.8 [facility] Monocytes/100 WBC Auto (Bld) Ordered By: Brad Harper on 09-19-2022 Monocytes/100 WBC (Bld) 6.7 % . [facility] Neutrophils Auto (Bld) [#/Vo l]Ordered By: Brad Harper on 09-19-2022 Neutrophils (Bld) [#/Vol] 9.3 10*3/uL 1.8-7.7 [facility] Neutrophils/100 WBC Auto (Bl d)Ordered By: Brad Harper on 09-19-2022 Neutrophils/100 WBC (Bld) 88.2 % . [facility] Nitrite Test strip Ql (U)Ord ered By: Brad Harper on 09-19-2022 Nitrite Ql (U) Negative Negative [facility] No Panel InformationOrdered By: Brad Harper on 09-19-2022 Estimated GFR () 58 mL/Min [facility] Comment on above: GFR estimated refere nce range: According to KDOQI guidelines, <60 ml/min/1.73m2 is sufficient to diagnose a patient with chronic kidney disease. Pharmacy Creatinine Clearance (Chem 30.82 [facility] Nucleated erythrocytes [Pres ence] in Blood by Automated countOrdered By: Brad Harper on 09-19-2022 Nucleated RBC Auto Ql (Bld) 0.0 /100{WBC} 0-0.5 [facility] Platelet mean volume Auto (B ld) [Entitic vol]Ordered By: Brad Harper on 09-19-2022 Platelet mean volume (Bld) [Entitic vol] 7.8 fL 6.3-10.7 [facility] Platelets Auto (Bld) [#/Vol] Ordered By: Brad Harper on 09-19-2022 Platelets (Bld) [#/Vol] 285 10*3/uL 150-450 [facility] Protein [Mass/volume] in Ser um or PlasmaOrdered By: Brad Harper on 09-19-2022 Protein [Mass/Vol] 7.6 g/dL 6.1-7.9 [facility] RBC Auto (Bld) [#/Vol]Ordere d By: Brad Harper on 09-19-2022 RBC (Bld) [#/Vol] 3.81 10*6/uL 3.60-5.[address] [facility] Serum or plasma alanine cox otransferase measurement without P-5'-P (enzymatic activiOrdered By: Brad Harper on 09-19-2022 ALT No additional P-5'-P [Catalytic activity/Vol] 19 U/L 10-60 [facility] Serum or plasma albumin/glob ulin mass ratioOrdered By: Brad Harper on 09-19-2022 Albumin/Globulin [Mass ratio] 0.9 {ratio} [facility] Serum or plasma alkaline angela sphatase measurement (enzymatic activity/volume)Ordered By: Brad Harper on 09-19-2022 ALP [Catalytic activity/Vol] 100 U/L 32-92 [facility] Serum or plasma anion gap de terminationOrdered By: Brad Harper on 09-19-2022 Anion gap [Moles/Vol] 18.0 mmol/L 6.0-15.0 [facility] Serum or plasma aspartate am inotransferase measurement (enzymatic activity/volume)Ordered By: Brad Harper on 09-19-2022 AST [Catalytic activity/Vol] 44 U/L 10-42 [facility] Serum or plasma calcium terri urement (mass/volume)Ordered By: Brad Harper on 09-19-2022 Calcium [Mass/Vol] 9.0 mg/dL 8.2-10.2 [facility] Serum or plasma chloride keny surement (moles/volume)Ordered By: Brad Harper on 09-19-2022 Chloride [Moles/Vol] 99 mmol/L 95-114 [facility] Serum or plasma glucose terri urement (mass/volume)Ordered By: Brad Harper on 09-19-2022 Glucose [Mass/Vol] 348 mg/dL 70-100 [facility] Comment on above: ADA recommended refe rence rangeRandom Glucose Reference Range is dependent on time and content of last meal. Glucose of more than 200 mg/dL in a nonstressed, ambulatory subject supports the diagnosis of Diabetes Mellitus. Serum or plasma potassium me asurement (moles/volume)Ordered By: Brad Harper on 09-19-2022 Potassium [Moles/Vol] 3.8 mmol/L 3.5-5.1 [facility] Serum or plasma sodium measu rement (moles/volume)Ordered By: Brad Harper on 09-19-2022 Sodium [Moles/Vol] 134 mmol/L 136-146 [facility] Serum or plasma total biliru bin measurement (mass/volume)Ordered By: Brad Harper on 09-19-2022 Bilirubin [Mass/Vol] 1.1 mg/dL 0.3-1.2 [facility] Serum or plasma total carbon dioxide measurement (moles/volume)Ordered By: Brad Harper on 09-19-2022 CO2 [Moles/Vol] 20.8 mmol/L 22.0-30.0 [facility] Serum or plasma urea nitroge n measurement (mass/volume)Ordered By: Brad Harper on 09-19-2022 Urea nitrogen [Mass/Vol] 23 mg/dL 06-12 [facility] Specific gravity Auto test s trip (U) [Rel density]Ordered By: Brad Harper on 09-19-2022 Specific gravity (U) [Rel density] 1.026 1.001-1.030 [facility] Squamous epithelial cells de tection in urine sediment by light microscopyOrdered By: Brad Harper on 09-19-2022 Epithelial cells.squamous LM Ql (Urine sed) 0-1 [HPF] 0-2 [facility] Troponin I High Sensitivityo n 09-19-2022 Troponin I High Sensitivity 134 pg/mL Off scale high 0-15 [facility] Comment on above: Result Comment: Crit ical value result called at 2210 on 09/19/22 PERFORMED BY: [facility] [address] [place] [address] PATHOLOGIST PATCHER JUMA XIE M.D. Performed By: #### L IPASE, HS TROP, CMP, CK, CBC ####[facility] [id number] [facility] Troponin I.cardiac [Mass/vol ume] in Serum or Plasma by High sensitivity methodOrdered By: Brad Harper on 09-19-2022 Troponin I.cardiac High sensitivity method [Mass/Vol] 138 pg/mL 0-15 [facility] Comment on above: Results calledat 005 6 on 09/20/22 Urine Cultureon 09-19-2022 Bacteria identified Cx Nom (U) 15,000 colonies/ml mixed bacterial skin contaminants 2 Days PERFORMED BY: [facility] [address] [facility] [place] [address] PATHOLOGIST PATCHER JUMA XIE M.D. Normal [facility] Comment on above: Performed By: #### G LULS #### Point of Care testing , Urine bacteria detection by automated methodOrdered By: Brad Harper on 09-19-2022 Bacteria Auto Ql (U) None seen None Seen [facility] Urine clarity by refractomet ry automatedOrdered By: Brad Harper on 09-19-2022 Clarity Refractometry automated (U) Clear Clear [facility] Urine glucose measurement by automated test strip (mass/volume)Ordered By: Brad Harper on 09-19-2022 Glucose Auto test strip (U) [Mass/Vol] >=1000 mg/dL Normal [facility] Urine hemoglobin detection b y automated test stripOrdered By: Brad Harper on 09-19-2022 Hemoglobin Auto test strip Ql (U) 2+ Negative [facility] Urine leukocyte esterase det ection by automated test stripOrdered By: Brad Harper on 09-19-2022 Leukocyte esterase Auto test strip Ql (U) Negative Negative [facility] Urine pH measurement by auto mated test stripOrdered By: Brad Harper on 09-19-2022 pH (U) 6.5 [pH] Normal 5.0-9.0 [facility] Comment on above: Order Comment: Name Collection Type:: Richardson Catheter Performed By: #### G LULS #### Point of Care testing , Urine protein measurement by automated test strip (mass/volume)Ordered By: Brad Harper on 09-19-2022 Protein (U) [Mass/Vol] 300 mg/dL High Negative [facility] Comment on above: Order Comment: Name Collection Type:: Richardson Catheter Performed By: #### G LULS #### Point of Care testing , Urobilinogen Auto test strip (U) [Mass/Vol]Ordered By: Brad Harper on 09-19-2022 Urobilinogen (U) [Mass/Vol] Normal mg/dL Normal [facility] WBC Auto (Bld) [#/Vol]Ordere d By: Brad Harper on 09-19-2022 WBC (Bld) [#/Vol] 10.6 10*3/uL 3.8-11.[address] [facility] CBC AUTO DIFFon 09-08-2022 BASO # 0.1 103/ul Normal 0.0-0.1 [facility] Comment on above: Performed By: #### C BC #### [facility] [address] [address] [address] dAan Rinaldi Basophils/100 WBC (Bld) 0.8 % Normal 0.2-2.0 [facility] Comment on above: Performed By: #### C BC #### [facility] [address] [address] [address] Adan Rinaldi EO # 0.4 103/ul Normal 0.0-0.7 [facility] Comment on above: Performed By: #### C BC #### [facility] [address] [place] [address] Dr. Adan Rinaldi Eosinophils/100 WBC (Bld) 5.8 % Normal 0.9-7.0 [facility] Comment on above: Performed By: #### C BC #### [facility] [address] [place] [address] Dr. Adan Rinaldi Erythrocyte distribution width (RBC) [Ratio] 14.4 % Normal 11.0-15.0 [facility] Comment on above: Performed By: #### C BC #### [facility] [address] [place] [address] Dr. Adan Rinaldi Hematocrit (Bld) [Volume fraction] 28.5 % Critically low 36.0-48.0 [facility] Comment on above: Performed By: #### C BC #### [facility] [address] [place] [address] Dr. Adan Rinaldi Hemoglobin (Bld) [Mass/Vol] 9.3 g/dL Critically low 12.0-16.0 [facility] Comment on above: Performed By: #### C BC #### [facility] [address] [place] [address] Dr. Adan Rinaldi IG # 0.02 10e3/ul Normal 0.00-0.03 [facility] Comment on above: Performed By: #### C BC #### [facility] [address] [place] [address] Dr. Adan Rinaldi IG % 0.3 % Normal 0.0-0.5 [facility] Comment on above: Performed By: #### C BC #### [facility] [address] [place] [address] Dr. Adan Rianldi LYMPH # 1.0 103/ul Critically low 1.2-3.8 [facility] Comment on above: Performed By: #### C BC #### [facility] [address] [place] [address] Dr. Adan Rinaldi Lymphocytes/100 WBC (Bld) 13.9 % Critically low 20.5-60.0 [facility] Comment on above: Performed By: #### C BC #### [facility] [address] [place] [address] Dr. Adan Rinaldi MANUAL DIFF REQ NO Normal [facility] Comment on above: Performed By: #### C BC #### [facility] [address] [place] [address] Dr. Adan Rinaldi MCH (RBC) [Entitic mass] 29.3 pg Normal 26.7-34.0 [facility] Comment on above: Performed By: #### C BC #### [facility] [address] [place] [address] Dr. Adan Rinaldi MCHC (RBC) [Mass/Vol] 32.6 g/dL Normal 29.9-35.2 [facility] Comment on above: Performed By: #### C BC #### [facility] [address] [place] [address] Dr. Adan Rinaldi MCV (RBC) [Entitic vol] 89.9 fL Normal 81.0-99.0 [facility] Comment on above: Performed By: #### C BC #### [facility] [address] [place] [address] Dr. Adan Rinaldi MONO # 0.8 103/ul Normal 0.3-0.8 [facility] Comment on above: Performed By: #### C BC #### [facility] [address] [place] [address] Dr. Adan Rinaldi Monocytes/100 WBC (Bld) 10.5 % Normal 1.7-12.0 [facility] Comment on above: Performed By: #### C BC #### [facility] [address] [place] [address] Dr. Adan Rinaldi NEUT # 5.1 103/ul Normal 1.4-6.5 [facility] Comment on above: Performed By: #### C BC #### [facility] [address] [place] [address] Dr. Adan Rinaldi Neutrophils/100 WBC (Bld) 68.7 % Normal 43.0-75.0 [facility] Comment on above: Performed By: #### C BC #### [facility] [address] [address] [address] Adan Rinaldi Platelet mean volume (Bld) [Entitic vol] 10.0 fL Normal 9.5-13.5 [facility] Comment on above: Performed By: #### C BC #### [facility] [address] [address] [address] Adan Rinaldi PLT 271 103/ul Normal 150-450 [facility] Comment on above: Performed By: #### C BC #### [facility] [address] [address] [address] Adan Rinaldi RBC 3.17 106/ul Critically low 4.20-5.40 [facility] Comment on above: Performed By: #### C BC #### [facility] [address] [place] [address] Dr. Adan Rinaldi WBC 7.4 103/ul Normal 4.0-11.0 [facility] Comment on above: Performed By: #### C BC #### [facility] [address] [place] [address] Dr. Adan Rinaldi PROF CHEM 8 (BAS METB)on Anion gap [Moles/Vol] 14.3 mmol/L Normal [facility] Comment on above: Performed By: #### C BC #### [facility] [address] [place] [address] Dr. Adan Rinaldi Calcium [Mass/Vol] 8.8 mg/dL Normal 8.5-10.1 [facility] Comment on above: Performed By: #### C BC #### [facility] [address] [place] [address] Dr. Adan Rinadli Chloride [Moles/Vol] 98 mmol/L Normal 98-107 [facility] Comment on above: Performed By: #### C BC #### [facility] [address] [place] [address] Dr. Adan Rinaldi CO2 [Moles/Vol] 29.3 mmol/L Normal 21.0-32.0 [facility] Comment on above: Performed By: #### C BC #### [facility] [address] [address] [address] Adan Rinaldi Creatinine [Mass/Vol] 1.41 mg/dL Critically high 0.55-1.02 [facility] Comment on above: Performed By: #### C BC #### [facility] [address] [address] [address] Adan Rinaldi EGFR-AF MARSHALLESE 43 mL/min/1.73m2 Critically low >=60 [facility] Comment on above: Performed By: #### C BC #### [facility] [address] [address] [address] Adan Rinaldi EGFR-NON AF MARSHALLESE 35 mL/min/1.73m2 Critically low >=60 [facility] Comment on above: Performed By: #### C BC #### [facility] [address] [address] [address] Adan Rinaldi Glucose [Mass/Vol] 254 mg/dL Critically high 74-106 [facility] Comment on above: Performed By: #### C BC #### [facility] [address] [address] [address] Adan Rinaldi Potassium [Moles/Vol] 4.6 mmol/L Normal 3.5-5.1 [facility] Comment on above: Performed By: #### C BC #### [facility] [address] [address] [address] Adan Rinaldi Sodium [Moles/Vol] 137 mmol/L Normal 136-145 [facility] Comment on above: Performed By: #### C BC #### [facility] [address] [address] [address] Adan Rinaldi Urea nitrogen [Mass/Vol] 30.0 mg/dL Critically high 7.0-18.0 [facility] Comment on above: Performed By: #### C BC #### [facility] [address] [address] [address] Adan Rinaldi Urea nitrogen/Creatinine [Mass ratio] 21.3 mg/mg Normal [facility] Comment on above: Performed By: #### C BC #### [facility] [address] [address] [address] Aadn Rinaldi Telephone Encounteron 2021 Narrow Gauge Engineer Authentication Interface Message Text Patients son Alek calling in. He is following up from the ED Resident Consult. Patient was seen in ED/Admitted on 09/03/22. She was seen by Dental Resident Dr. Mccall. The resident recommended: patient has been advised to come to the [place] [facility] for comprehensive evaluation and treatment of teeth #5-#8. There are no appointments that [facility] can schedule into. Please reach out to Alek to assist with scheduling. Normal [facility] BASIC METABOLIC PANELon 08-20 Anion gap [Moles/Vol] 15 mmol/L Normal 10-20 [facility] Comment on above: Performed By: #### C H8 #### [facility] [address] [place] [address], Calcium [Mass/Vol] 8.3 mg/dL Low 8.4-10.4 [facility] Comment on above: Performed By: #### C H8 #### [facility] [address] [place] [address], Chloride [Moles/Vol] 101 mmol/L Normal 97-111 [facility] Comment on above: Performed By: #### C H8 #### [facility] [address] [place] [address], CO2 [Moles/Vol] 25 mmol/L Normal 21-30 [facility] Comment on above: Performed By: #### C H8 #### [facility] [address] [place] [address], Creatinine [Mass/Vol] 1.47 mg/dL High 0.50-1.10 [facility] Comment on above: Performed By: #### C H8 #### [facility] [address] [place] [address], ESTIMATED GFR (CKD-EPI) 35 mL/min/1.73sqm Low >=60 [facility] Comment on above: Result Comment: 2020 CKD EPI Equation using Creatinine without Race Comment: Estimated glomerular filtration rate (eGFR) is calculated without a race coefficient. Values should be interpreted in the context of the patient's full clinical presentation. Reference: 1. Nicko Bernal, Cyn M, Ibeth OLMEDO, et al.. A Unifying Approach for GFR Estimation: Recommendations of the NKF-ASN Task Force on Reassessing the Inclusion of Race in Diagnosing Kidney Disease. [place] [employer] Journal of Kidney Diseases 2021;79(2):268-88.e1. 2. N Engl J Med 1 Vol. 385 Issue 19 Pages 7839-7947 Performed By: #### C H8 #### [facility] [address] [place] [address], Glucose [Mass/Vol] 258 mg/dL High 80-116 [facility] Comment on above: Performed By: #### C H8 #### [facility] [address] [place] [address], Potassium [Moles/Vol] 4.4 mmol/L Normal 3.3-5.3 [facility] Comment on above: Performed By: #### C H8 #### [facility] [address] [place] [address], Sodium [Moles/Vol] 137 mmol/L Normal 135-148 [facility] Comment on above: Performed By: #### C H8 #### [facility] [address] [place] [address], Urea nitrogen [Mass/Vol] 38 mg/dL High 8-22 [facility] Comment on above: Performed By: #### C H8 #### [facility] [address] [place] [address], Basic metabolic 2000 panelon 09-05-2022 Anion gap [Moles/Vol] 15 mmol/L 10 - 20 [facility] Calcium [Mass/Vol] 8.3 mg/dL Low 8.4 - 10. 4 mg/dL [facility] Chloride [Moles/Vol] 101 mmol/L 97 - 11 1 mmol/L [facility] CO2 [Moles/Vol] 25 mmol/L 21 - 30 mmol/L [facility] Creatinine [Mass/Vol] 1.47 mg/dL High 0.50 - 1.10 mg/dL [facility] GFR/1.73 sq M.predicted MDRD (S/P/Bld) [Vol rate/Area] 35 mL/min/{1.73_m2} Low - PINF [facility] Comment on above: 2020 CKD EPI Equatio n using Creatinine without Race Comment: Estimated glomerular filtration rate (eGFR) is calculated without a race coefficient. Values should be interpreted in the context of the patient's full clinical presentation. Reference: 1. Nicko C, Cyn M, Ibeth DC, et al.. A Unifying Approach for GFR Estimation: Recommendations of the NKF-ASN Task Force on Reassessing the Inclusion of Race in Diagnosing Kidney Disease. [place] [employer] Journal of Kidney Diseases 202;79(2):268-88.e1. 2. N Engl J Med 2020 Vol. 385 Issue 19 Pages 2213-6619 Glucose [Mass/Vol] 258 mg/dL High 80 - 116 mg/dL [facility] Interpretation and review of laboratory results Abnormal [facility] Potassium [Moles/Vol] 4.4 mmol/L 3.3 - 5.3 mmol/L [facility] Sodium [Moles/Vol] 137 mmol/L 135 - 148 mmol/L [facility] Urea nitrogen [Mass/Vol] 38 mg/dL High 8 - 22 mg/dL [facility] CBC WITH DIFFERENTIALon 08-20 Basophils (Bld) [#/Vol] 0.08 10*3/uL Normal 0.00-0.20 [facility] Comment on above: Performed By: #### A PTT, PT #### [facility] [address] [place] [address], Basophils/100 WBC (Bld) 1.0 % Normal <=1.9 [facility] Comment on above: Performed By: #### A PTT, PT #### [facility] [address], [place], Eosinophils (Bld) [#/Vol] 0.23 10*3/uL Normal 0.00-0.70 [facility] Comment on above: Performed By: #### A PTT, PT #### [facility] [address], [place], Eosinophils/100 WBC (Bld) 2.7 % Normal 0.1-4.0 [facility] Comment on above: Performed By: #### A PTT, PT #### [facility] [address] [place] [address], Erythrocyte distribution width (RBC) [Ratio] 15.3 % High 11.5-14.5 [facility] Comment on above: Performed By: #### A PTT, PT #### [facility] [address] [place] [address], Hematocrit (Bld) [Volume fraction] 27.4 % Low 36.0-46.0 [facility] Comment on above: Performed By: #### A PTT, PT #### [facility] [address] [place] [address], Hemoglobin (Bld) [Mass/Vol] 9.2 g/dL Low 12.0-15.0 [facility] Comment on above: Performed By: #### A PTT, PT #### [facility] [address] [place] [address], Lymphocytes (Bld) [#/Vol] 0.86 10*3/uL Low 1.00-4.80 [facility] Comment on above: Performed By: #### A PTT, PT #### [facility] [address], [place], Lymphocytes/100 WBC (Bld) 9.9 % Low 24.0-44.0 [facility] Comment on above: Performed By: #### A PTT, PT #### [facility] [address], [place], MCH (RBC) [Entitic mass] 30.0 pg Normal 26.0-34.0 [facility] Comment on above: Performed By: #### A PTT, PT #### [facility] [address], [place], MCHC (RBC) [Mass/Vol] 33.7 g/dL Normal 32.0-35.9 [facility] Comment on above: Performed By: #### A PTT, PT #### [facility] [address], [place], MCV (RBC) [Entitic vol] 89 fL Normal 80-100 [facility] Comment on above: Performed By: #### A PTT, PT #### [facility] [address], [place], MONOCYTE DISTRIBUTION WIDTH 22 High <=20 [facility] Comment on above: Performed By: #### A PTT, PT #### [facility] [address], [place], Monocytes (Bld) [#/Vol] 0.69 10*3/uL Normal 0.20-1.00 [facility] Comment on above: Performed By: #### A PTT, PT #### [facility] [address], [place], Monocytes/100 WBC (Bld) 7.9 % Normal 2.0-11.0 [facility] Comment on above: Performed By: #### A PTT, PT #### [facility] [address], [place], Neutrophils (Bld) [#/Vol] 6.86 10*3/uL Normal 1.50-8.00 [facility] Comment on above: Performed By: #### A PTT, PT #### [facility] [address], [place], Neutrophils/100 WBC (Bld) 78.6 % High 31.0-76.0 [facility] Comment on above: Performed By: #### A PTT, PT #### [facility] [address], [place], Platelet mean volume (Bld) [Entitic vol] 8.0 fL Normal 7.5-11.2 [facility] Comment on above: Performed By: #### A PTT, PT #### [facility] [address], [place], Platelets (Bld) [#/Vol] 192 10*3/uL Normal 150-400 [facility] Comment on above: Performed By: #### A PTT, PT #### [facility] [address], [place], RBC (Bld) [#/Vol] 3.08 10*6/uL Low 4.00-5.20 [facility] Comment on above: Performed By: #### A PTT, PT #### [facility] [address], [place], WBC (Bld) [#/Vol] 8.7 10*3/uL Normal 4.5-11.5 [facility] Comment on above: Performed By: #### A PTT, PT #### [facility] [address], [place], Basophils (Bld) [#/Vol] 0.08 10*3/uL 0.00 - 0.20 K/uL [facility] Basophils/100 WBC (Bld) 1.0 % NINF - 1.9 % [facility] Eosinophils (Bld) [#/Vol] 0.23 10*3/uL 0.00 - 0.70 K/uL [facility] Eosinophils/100 WBC (Bld) 2.7 % 0.1 - 4.0 % [facility] Erythrocyte distribution width (RBC) [Ratio] 15.3 % High 11.5 - 14.5 % [facility] Hematocrit (Bld) [Volume fraction] 27.4 % Low 36.0 - 46.0 % [facility] Hemoglobin (Bld) [Mass/Vol] 9.2 g/dL Low 12.0 - 15.0 g/dL [facility] Interpretation and review of laboratory results Abnormal [facility] Lymphocytes (Bld) [#/Vol] 0.86 10*3/uL Low 1.00 - 4.80 K/uL [facility] Lymphocytes/100 WBC (Bld) 9.9 % Low 24.0 - 44.0 % [facility] MCH (RBC) [Entitic mass] 30.0 pg 26.0 - 34.0 pg [facility] MCHC (RBC) [Mass/Vol] 33.7 g/dL 32.0 - 35.9 g/dL [facility] MCV (RBC) [Entitic vol] 89 fL 80 - 100 fL [facility] Monocyte distribution width Auto (Bld) [Entitic vol] 22 High NINF - 20 [facility] Monocytes (Bld) [#/Vol] 0.69 10*3/uL 0.20 - 1.00 K/uL [facility] Monocytes/100 WBC (Bld) 7.9 % 2.0 - 11.0 % [facility] Neutrophils (Bld) [#/Vol] 6.86 10*3/uL 1.50 - 8.00 K/uL [facility] Neutrophils/100 WBC (Bld) 78.6 % High 31.0 - 76.0 % [facility] Platelet mean volume (Bld) [Entitic vol] 8.0 fL 7.5 - 11.2 fL [facility] Platelets (Bld) [#/Vol] 192 10*3/uL 150 - 400 K/uL [facility] RBC (Bld) [#/Vol] 3.08 10*6/uL Low [facility] WBC (Bld) [#/Vol] 8.7 10*3/uL 4.5 - 11.5 K/uL [facility] Care Plan Noteon 09-05-2022 Narrow Gauge Engineer Authentication Interface Message Text Request by Trauma Service to coordinate C request for Ms Hewitt. Review of Epic / Care Everywhere, has PCP in [facility] but does not have a current visit within the last 90 days. Today is Wednesday, Sep 05, 2022 Dr Yoko Helms is PCP Ph [phone] Fx Discharge summary HHC order PT eval OT eval Cardiology Consult Will be faxed to PCP office to coordinate HHC IP Team notified of the above. Latricia Wylie, [employer] INSULATION SUPERVISOR CDU CM Normal [facility] GLUCOSE, FINGERSTICK-IN OFFI CEon 09-05-2022 Glucose [Mass/Vol] 311 mg/dL High 80-116 [facility] Comment on above: Performed By: #### 8 [id number] #### NURSING GLUCOSE PROGRAM [address] [place] [address], [id number] Glucose [Mass/Vol] 311 mg/dL High 80 - 116 mg/dL [facility] Interpretation and review of laboratory results Abnormal [facility] Progress Noteson 09-05-2022 Narrow Gauge Engineer Authentication Interface Message Text UTILIZATION REVIEW AND STAFF BED STATUS CHANGE [facility] Utilization Review team and medical staff reviewed the clinical care for this patient using [facility] guidelines to determine appropriate bed status. The outcome of this review and discussions is to change the status from inpatient to observation. Normal [facility] B TYPE NATRIURETIC PEPTIDEon 09-04-2022 Natriuretic peptide B (Bld) [Mass/Vol] 894.0 pg/mL High <100.0 [facility] Comment on above: Performed By: #### B PL #### [facility] [address] [place] [address], Interpretation and review of laboratory results Abnormal [facility] Natriuretic peptide B (Bld) [Mass/Vol] 894.0 pg/mL High NINF - 100.0 pg/mL [facility] COVID/INFLUENZAon 09-04-2022 INFLUENZA A Not detected Normal Not Detected [facility] Comment on above: Order Comment: Detec fern results are indicative of the presence of the SARS-CoV-2 in the specimen submitted for testing. Clinical correlation with patient history and other diagnostic information is necessary to determine patient infection status. This test is intended for use only under Emergency Use Authorization (EUA). This test was developed, and its performance characteristics determined by [facility] which is certified under CLIA as qualified to perform high complexity clinical laboratory testing. Result Comment: This assay was performed using [employer] RTPCR technology. Performed By: #### F ESTELA/COVID #### [facility] [address] [place] [address], INFLUENZA B Not detected Normal Not Detected [facility] Comment on above: Order Comment: Detec fern results are indicative of the presence of the SARS-CoV-2 in the specimen submitted for testing. Clinical correlation with patient history and other diagnostic information is necessary to determine patient infection status. This test is intended for use only under Emergency Use Authorization (EUA). This test was developed, and its performance characteristics determined by [facility] which is certified under CLIA as qualified to perform high complexity clinical laboratory testing. Result Comment: This assay was performed using [employer] RTPCR technology. Performed By: #### F ESTELA/COVID #### [facility] [address] [place] [address], SARS-CoV-2 (COVID-19) RNA BLU+probe Ql (Unsp spec) Detected Abnormal Not Detected [facility] Comment on above: Order Comment: Detec fern results are indicative of the presence of the SARS-CoV-2 in the specimen submitted for testing. Clinical correlation with patient history and other diagnostic information is necessary to determine patient infection status. This test is intended for use only under Emergency Use Authorization (EUA). This test was developed, and its performance characteristics determined by [facility] which is certified under CLIA as qualified to perform high complexity clinical laboratory testing. Result Comment: This assay was performed using [employer] RTPCR technology. Performed By: #### F ESTELA/COVID #### [facility] [address] [place], [address] COVID/INFLUENZAOrdered By: Shea Lane on 09-04-2022 FLUAV RNA BLU+probe Ql (Nph) Not detected Not Detected [facility] Comment on above: This assay was perfo rmed using [employer] RTPCR technology. FLUBV RNA BLU+probe Ql (Nph) Not detected Not Detected [facility] Comment on above: This assay was perfo rmed using [employer] RTPCR technology. Interpretation and review of laboratory results Abnormal [facility] SARS-CoV-2 (COVID-19) RNA BLU+probe Ql (Unsp spec) Detected Abnormal Not Detected [facility] Comment on above: This assay was perfo rmed using [employer] RTPCR technology. SARS-CoV-2 (COVID-19) RNA BLU+probe Ql (Unsp spec) Detected results are indicative of the presence of the SARS-CoV-2 in the specimen submitted for testing. Clinical correlation with patient history and other diagnostic information is necessary to determine patient infection status. This test is intended for use only under Emergency Use Authorization (EUA). This test was developed, and its performance characteristics [facility] which is certified under CLIA as qualified to perform high complexity clinical laboratory testing. [facility] CT ABD/PELVIS ED I/V COLLIN W / CONTRASTon 09-04-2022 CT ABD/PELVIS ED I/V COLLIN W/ CONTRAST EXAMINATION: CT ABD/PELVIS ED I/V COLLIN W/ CONTRAST 09/03/2022 09:44 PM CLINICAL HISTORY: Reason for Exam: Trauma; fall, chest wall tenderness COMPARISON: Same day CT of the thoracic and lumbar spine; CTA of the chest PE protocol TECHNIQUE: Contiguous axial images were obtained through the abdomen and pelvis from the level of the diaphragmatic domes through the pubic symphysis following bolus administration of intravenous contrast. MPR sagittal and coronal reconstructions were obtained from the axial data. Before infusion of intravenous contrast, radiology personnel investigated the possibility of an allergic history and of any history of reaction to iodinated contrast material. Contrast Protocol: Omnipaque 350 [>or =100lb] 100 ml [<100 lb] 1 ml per 1 lb. INTRA-PROCEDURE MEDS: iohexol (OMNIPAQUE) 350 MG/ML injection 100 mL Route: Intravenous Push FINDINGS: Included images of the lower thorax: Severe mitral annular calcifications. Mild cardiomegaly. Curvilinear atelectasis in the bilateral lower lobes. Mild intralobular septal thickening. Aortic valve prosthesis. Hepatobiliary: The liver parenchyma has low attenuation consistent with hepatic steatosis. The patient is status post cholecystectomy. Intra and extrahepatic biliary prominence is present which likely relates to prior cholecystectomy. The common bile duct measures 7 mm, which is likely postprocedural. Pancreas: Unremarkable Spleen: Unremarkable Adrenal Glands: Unremarkable Kidneys, ureters, and bladder: No calculi or hydroureteronephrosi s. Partially exophytic cortical based renal hypodensities measuring up to 1.9 cm in the interpolar region of the right kidney (series 4, image 44) and 1.7 cm in the inferior pole of the left kidney. Unremarkable unenhanced appearance of the urinary bladder. Abdominal and pelvic vasculature: Extensive calcified and noncalcified atherosclerotic calcifications are present without aneurysm. There is probable mild stenosis in the distal SMA (see series 4, image 69). GI tract: Small hiatal hernia. No evidence of obstruction. The appendix is within normal limits. Extensive colonic diverticulosis without evidence of diverticulitis. Peritoneum and retroperitoneum: No free fluid or free air. Lymph Nodes: No abdominal or pelvic lymphadenopathy. Uterus and adnexa: Status post hysterectomy. Visualized musculoskeletal structures: No acute fracture or destructive osseous lesion is identified. Diffuse osteopenia. Increased sclerosis in the bilateral sacroiliac joints. Grade 1 anterolisthesis of L4 on L5. Thoracolumbar degenerative disc disease most pronounced at L1-L2, where there is disc space narrowing, endplate sclerosis, and height loss. Partial visualization of the median sternotomy wires. IMPRESSION: 1. No traumatic injury identified. 2. Extensive atherosclerosis with mild stenosis of the distal superior mesenteric artery. 3. Mild cardiomegaly with mild interlobular septal thickening suggestive of pulmonary edema. 4. Diverticulosis without evidence of diverticulitis. 5. Severe mitral annular calcifications. MACRO: None Normal [facility] CT Abdomen and Pelvis W cont rast Zenaida 09-04-2022 EXAMINATION: CT ABD/PELVIS ED I/V COLLIN W/ CONTRAST 09/03/2022 09:44 PM CLINICAL HISTORY: Reason for Exam: Trauma; fall, chest wall tenderness COMPARISON: Same day CT of the thoracic and lumbar spine; CTA of the chest PE protocol TECHNIQUE: Contiguous axial images were obtained through the abdomen and pelvis from the level of the diaphragmatic domes through the pubic symphysis following bolus administration of intravenous contrast. MPR sagittal and coronal reconstructions were obtained from the axial data. Before infusion of intravenous contrast, radiology personnel investigated the possibility of an allergic history and of any history of reaction to iodinated contrast material. Contrast Protocol: Omnipaque 350 [>or =100lb] 100 ml [<100 lb] 1 ml per 1 lb. INTRA-PROCEDURE MEDS: iohexol (OMNIPAQUE) 350 MG/ML injection 100 mL Route: Intravenous Push FINDINGS: Included images of the lower thorax: Severe mitral annular calcifications. Mild cardiomegaly. Curvilinear atelectasis in the bilateral lower lobes. Mild intralobular septal thickening. Aortic valve prosthesis. Hepatobiliary: The liver parenchyma has low attenuation consistent with hepatic steatosis. The patient is status post cholecystectomy. Intra and extrahepatic biliary prominence is present which likely relates to prior cholecystectomy. The common bile duct measures 7 mm, which is likely postprocedural. Pancreas: Unremarkable Spleen: Unremarkable Adrenal Glands: Unremarkable Kidneys, ureters, and bladder: No calculi or hydroureteronephrosi s. Partially exophytic cortical based renal hypodensities measuring up to 1.9 cm in the interpolar region of the right kidney (series 4, image 44) and 1.7 cm in the inferior pole of the left kidney. Unremarkable unenhanced appearance of the urinary bladder. Abdominal and pelvic vasculature: Extensive calcified and noncalcified atherosclerotic calcifications are present without aneurysm. There is probable mild stenosis in the distal SMA (see series 4, image 69). GI tract: Small hiatal hernia. No evidence of obstruction. The appendix is within normal limits. Extensive colonic diverticulosis without evidence of diverticulitis. Peritoneum and retroperitoneum: No free fluid or free air. Lymph Nodes: No abdominal or pelvic lymphadenopathy. Uterus and adnexa: Status post hysterectomy. Visualized musculoskeletal structures: No acute fracture or destructive osseous lesion is identified. Diffuse osteopenia. Increased sclerosis in the bilateral sacroiliac joints. Grade 1 anterolisthesis of L4 on L5. Thoracolumbar degenerative disc disease most pronounced at L1-L2, where there is disc space narrowing, endplate sclerosis, and height loss. Partial visualization of the median sternotomy wires. IMPRESSION: 1. No traumatic injury identified. 2. Extensive atherosclerosis with mild stenosis of the distal superior mesenteric artery. 3. Mild cardiomegaly with mild interlobular septal thickening suggestive of pulmonary edema. 4. Diverticulosis without evidence of diverticulitis. 5. Severe mitral annular calcifications. MACRO: None RADIOLOGY Bala Person MD - 09/04/2022 EXAMINATION: CT ABD/PELVIS ED I/V COLLIN W/ CONTRAST 09/03/2022 09:44 PM CLINICAL HISTORY: Reason for Exam: Trauma; fall, chest wall tenderness COMPARISON: Same day CT of the thoracic and lumbar spine; CTA of the chest PE protocol TECHNIQUE: Contiguous axial images were obtained through the abdomen and pelvis from the level of the diaphragmatic domes through the pubic symphysis following bolus administration of intravenous contrast. MPR sagittal and coronal reconstructions were obtained from the axial data. Before infusion of intravenous contrast, radiology personnel investigated the possibility of an allergic history and of any history of reaction to iodinated contrast material. Contrast Protocol: Omnipaque 350 [>or =100lb] 100 ml [<100 lb] 1 ml per 1 lb. INTRA-PROCEDURE MEDS: iohexol (OMNIPAQUE) 350 MG/ML injection 100 mL Route: Intravenous Push FINDINGS: Included images of the lower thorax: Severe mitral annular calcifications. Mild cardiomegaly. Curvilinear atelectasis in the bilateral lower lobes. Mild intralobular septal thickening. Aortic valve prosthesis. Hepatobiliary: The liver parenchyma has low attenuation consistent with hepatic steatosis. The patient is status post cholecystectomy. Intra and extrahepatic biliary prominence is present which likely relates to prior cholecystectomy. The common bile duct measures 7 mm, which is likely postprocedural. Pancreas: Unremarkable Spleen: Unremarkable Adrenal Glands: Unremarkable Kidneys, ureters, and bladder: No calculi or hydroureteronephrosi s. Partially exophytic cortical based renal hypodensities measuring up to 1.9 cm in the interpolar region of the right kidney (series 4, image 44) and 1.7 cm in the inferior pole of the left kidney. Unremarkable unenhanced appearance of the urinary bladder. Abdominal and pelvic vasculature: Extensive calcified and noncalcified atherosclerotic calcifications are present without aneurysm. There is probable mild stenosis in the distal SMA (see series 4, image 69). GI tract: Small hiatal hernia. No evidence of obstruction. The appendix is within normal limits. Extensive colonic diverticulosis without evidence of diverticulitis. Peritoneum and retroperitoneum: No free fluid or free air. Lymph Nodes: No abdominal or pelvic lymphadenopathy. Uterus and adnexa: Status post hysterectomy. Visualized musculoskeletal structures: No acute fracture or destructive osseous lesion is identified. Diffuse osteopenia. Increased sclerosis in the bilateral sacroiliac joints. Grade 1 anterolisthesis of L4 on L5. Thoracolumbar degenerative disc disease most pronounced at L1-L2, where there is disc space narrowing, endplate sclerosis, and height loss. Partial visualization of the median sternotomy wires. IMPRESSION: 1. No traumatic injury identified. 2. Extensive atherosclerosis with mild stenosis of the distal superior mesenteric artery. 3. Mild cardiomegaly with mild interlobular septal thickening suggestive of pulmonary edema. 4. Diverticulosis without evidence of diverticulitis. 5. Severe mitral annular calcifications. MACRO: None [employer] CT L-SPINE W/O CONTRASTon CT L-SPINE W/O CONTRAST EXAMINATION: CT L-SPINE W/O CONTRAST 09/03/2022 09:44 PM CLINICAL HISTORY: Reason for Exam: Trauma; fall, chest wall tenderness COMPARISON: None TECHNIQUE: Thin axial images were obtained through the lumbar region without intravenous contrast. 2D sagittal and coronal reconstructions were obtained from the axial data. FINDINGS: Alignment: Normal. Vertebrae: No evidence of an acute fracture. No aggressive osseous lesions. Multilevel degenerative changes most pronounced at L1-L2 where there is intervertebral disc space height loss and endplate sclerosis. Canal and foramina: No evidence of significant spinal canal or neural foraminal stenosis. Visible sacrum and pelvis: Normal. The presacral soft tissues are normal in appearance. Sclerosis of the sacroiliac joints. Calcified atherosclerotic disease involving the aorta is major branches. Hiatal hernia. 1.7 cm right renal cyst. IMPRESSION: No fracture or malalignment of the lower thoracic or lumbar spine. MACRO: None Normal [facility] CT T-SPINE W/O CONTRASTon CT T-SPINE W/O CONTRAST EXAMINATION: CT T-SPINE W/O CONTRAST 09/03/2022 09:44 PM CLINICAL HISTORY: Reason for Exam: Trauma; fall, chest wall tenderness COMPARISON: None TECHNIQUE: Thin axial images were obtained through the thoracic region without intravenous contrast. 2D sagittal and coronal reconstructions were obtained from the axial data. FINDINGS: Alignment: Normal. Vertebrae: No evidence of an acute fracture. No aggressive osseous lesions. Multilevel degenerative changes. Thoracic soft tissue: The paraspinal soft tissues planes are maintained. Canal and foramina: No evidence of significant spinal canal or neural foraminal stenosis. Partially imaged plate and screw fixation of the left humeral fracture. Hiatal hernia. Mitral valve annulus calcifications. Aortic valve prosthesis. Calcifications of the aortic arch. IMPRESSION: No acute fracture or malalignment of the thoracic spine. Please see separate report for CTA chest 09/03/2022 MACRO: None Normal [facility] CTA CHEST PULMONARY EMBOLISM W/ CTAon 09-04-2022 CTA CHEST PULMONARY EMBOLISM W/ CTA EXAMINATION: CTA CHEST PULMONARY EMBOLISM W/ CTA 09/03/2022 09:44 PM CLINICAL HISTORY: Reason for Exam: Pulmonary embolism suspected; Syncope COMPARISON: None TECHNIQUE: Axial images of the chest were obtained from above the lung apices through the level of the adrenal glands during the bolus administration of intravenous contrast. Multiplanar and 3D maximum intensity projection reformulation's were created from the raw CT data which were interpreted in conjunction with the axial images to render the findings listed below. Before infusion of intravenous contrast, radiology personnel investigated the possibility of an allergic history and of any history of reaction to iodinated contrast material. Contrast Protocol: Omnipaque 350 [>or =100lb] 75 ml [<100 lb] 1 ml per 1 lb. INTRA-PROCEDURE MEDS: iohexol (OMNIPAQUE) 350 MG/ML injection 100 mL Route: Intravenous Push FINDINGS: Exam Quality: Overall exam quality is satisfactory. Pulmonary arterial enhancement is optimal, the breath hold is suboptimal, and there are no significant artifacts impacting image quality. Pulmonary Arteries: There are no filling defects within the pulmonary arterial system to suggest pulmonary embolus. Cardiovasculature: The heart is normal in size. Atherosclerotic calcifications are present within the coronary arteries. Atherosclerotic calcification of the thoracic aorta. Mitral annular calcifications. Aortic valve replacement. Enlarged main pulmonary artery measuring up to 3.5 cm consistent with pulmonary hypertension. Mediastinum/Pericard ium: Unremarkable Pleura: Unremarkable Central Airways: Widely patent. Lungs: No focal consolidation. Mild interlobular septal thickening. Nodules: A 8 mm right upper lobe posterior pleural-based linear nodule (Series 9, Image 125). Lymph Nodes: No thoracic lymphadenopathy is evident. Visualized musculoskeletal structures: Degenerative disc disease is present with endplate spurring. Included images of the upper abdomen: Simple right renal cyst. Small size hiatal hernia. IMPRESSION: 1. Negative for acute pulmonary embolus. 2. Mild interlobular septal thickening suggestive of early pulmonary edema. 3. Enlarged main pulmonary artery measuring up to 3.5 cm suggestive of pulmonary hypertension. 4. A 8 mm right upper lobe pleural-based linear nodule likely present focal atelectasis or scarring. MACRO: None Normal [facility] CTA Pulmonary arteries for p ulmonary embolus W contrast Zenaida 09-04-2022 CT DLP 1204.7 (mGy.cm) [facility] CT Series Entire body,Entire body,Entire body,Entire body,Entire body,Entire body [facility] CTDI VOL 5.3 (mGy),6.0 (mGy),11.1 (mGy),10.3 (mGy),10.0 (mGy),8.6 (mGy) [employer] NEGATIVE P/E Negative [employer] PHANTOM TYPE IEC Body Dosimetry Phantom,IEC Body Dosimetry Phantom,IEC Body Dosimetry Phantom,IEC Body Dosimetry Phantom,IEC Body Dosimetry Phantom,IEC Body Dosimetry Phantom [employer] EXAMINATION: CTA CHEST PULMONARY EMBOLISM W/ CTA 09/03/2022 09:44 PM CLINICAL HISTORY: Reason for Exam: Pulmonary embolism suspected; Syncope COMPARISON: None TECHNIQUE: Axial images of the chest were obtained from above the lung apices through the level of the adrenal glands during the bolus administration of intravenous contrast. Multiplanar and 3D maximum intensity projection reformulation's were created from the raw CT data which were interpreted in conjunction with the axial images to render the findings listed below. Before infusion of intravenous contrast, radiology personnel investigated the possibility of an allergic history and of any history of reaction to iodinated contrast material. Contrast Protocol: Omnipaque 350 [>or =100lb] 75 ml [<100 lb] 1 ml per 1 lb. INTRA-PROCEDURE MEDS: iohexol (OMNIPAQUE) 350 MG/ML injection 100 mL Route: Intravenous Push FINDINGS: Exam Quality: Overall exam quality is satisfactory. Pulmonary arterial enhancement is optimal, the breath hold is suboptimal, and there are no significant artifacts impacting image quality. Pulmonary Arteries: There are no filling defects within the pulmonary arterial system to suggest pulmonary embolus. Cardiovasculature: The heart is normal in size. Atherosclerotic calcifications are present within the coronary arteries. Atherosclerotic calcification of the thoracic aorta. Mitral annular calcifications. Aortic valve replacement. Enlarged main pulmonary artery measuring up to 3.5 cm consistent with pulmonary hypertension. Mediastinum/Pericard ium: Unremarkable Pleura: Unremarkable Central Airways: Widely patent. Lungs: No focal consolidation. Mild interlobular septal thickening. Nodules: A 8 mm right upper lobe posterior pleural-based linear nodule (Series 9, Image 125). Lymph Nodes: No thoracic lymphadenopathy is evident. Visualized musculoskeletal structures: Degenerative disc disease is present with endplate spurring. Included images of the upper abdomen: Simple right renal cyst. Small size hiatal hernia. IMPRESSION: 1. Negative for acute pulmonary embolus. 2. Mild interlobular septal thickening suggestive of early pulmonary edema. 3. Enlarged main pulmonary artery measuring up to 3.5 cm suggestive of pulmonary hypertension. 4. A 8 mm right upper lobe pleural-based linear nodule likely present focal atelectasis or scarring. MACRO: None RADIOLOGY Bala Person MD - 09/04/2022 EXAMINATION: CTA CHEST PULMONARY EMBOLISM W/ CTA 09/03/2022 09:44 PM CLINICAL HISTORY: Reason for Exam: Pulmonary embolism suspected; Syncope COMPARISON: None TECHNIQUE: Axial images of the chest were obtained from above the lung apices through the level of the adrenal glands during the bolus administration of intravenous contrast. Multiplanar and 3D maximum intensity projection reformulation's were created from the raw CT data which were interpreted in conjunction with the axial images to render the findings listed below. Before infusion of intravenous contrast, radiology personnel investigated the possibility of an allergic history and of any history of reaction to iodinated contrast material. Contrast Protocol: Omnipaque 350 [>or =100lb] 75 ml [<100 lb] 1 ml per 1 lb. INTRA-PROCEDURE MEDS: iohexol (OMNIPAQUE) 350 MG/ML injection 100 mL Route: Intravenous Push FINDINGS: Exam Quality: Overall exam quality is satisfactory. Pulmonary arterial enhancement is optimal, the breath hold is suboptimal, and there are no significant artifacts impacting image quality. Pulmonary Arteries: There are no filling defects within the pulmonary arterial system to suggest pulmonary embolus. Cardiovasculature: The heart is normal in size. Atherosclerotic calcifications are present within the coronary arteries. Atherosclerotic calcification of the thoracic aorta. Mitral annular calcifications. Aortic valve replacement. Enlarged main pulmonary artery measuring up to 3.5 cm consistent with pulmonary hypertension. Mediastinum/Pericard ium: Unremarkable Pleura: Unremarkable Central Airways: Widely patent. Lungs: No focal consolidation. Mild interlobular septal thickening. Nodules: A 8 mm right upper lobe posterior pleural-based linear nodule (Series 9, Image 125). Lymph Nodes: No thoracic lymphadenopathy is evident. Visualized musculoskeletal structures: Degenerative disc disease is present with endplate spurring. Included images of the upper abdomen: Simple right renal cyst. Small size hiatal hernia. IMPRESSION: 1. Negative for acute pulmonary embolus. 2. Mild interlobular septal thickening suggestive of early pulmonary edema. 3. Enlarged main pulmonary artery measuring up to 3.5 cm suggestive of pulmonary hypertension. 4. A 8 mm right upper lobe pleural-based linear nodule likely present focal atelectasis or scarring. MACRO: None [facility] Diabetes tracking panelOrder ed By: Emperatriz Dye on 09-04-2022 Average glucose Estimated from glycated hemoglobin (Bld) [Mass/Vol] 166 mg/dL [facility] HbA1c (Bld) [Mass fraction] 7.4 % High 4.0 - 5.6 % [facility] Interpretation and review of laboratory results Abnormal [facility] ED Provider Noteson 09-04-20 22 [employer] Authentication Interface Message Text MS MM 86 female cat 2 transfer form osh. Fell at grocery store around noon, unknown reason for fall. Alveolar ridge fracture, multiple avulsed teeth. Was hypoxic on arrival to 83%, improved on 2L. CT's pending including CTPE Trops up but stable Plastics and dental recs Admit somewhere for O2 and trop bump Under my care: Patient's repeat troponin was stable. BNP mildly elevated inpatient on oxygen 2 L. Was given 20 of IV Lasix for concern for pulmonary edema on CT PE. Admitted to medicine report called to the medicine senior accepted the patient to the floor. Tucker Bucio MD Normal [facility] EKG 12 LEAD - PERFORMon 12-1 6-2022 Diagnosis Sinus bradycardia Possible Left atrial enlargement Borderline No previous ECGs available Confirmed by DIVINE GRAHAM ([id number]) on 09/04/2022 1:39:03 PM [facility] P wave [facility] by EKG 59 BPM [facility] P wave axis 52 degrees [facility] P-R Interval 178 ms [facility] Q-T interval 478 ms [facility] Q-T interval corrected 473 ms [facility] QRS axis 33 degrees [facility] QRS duration 104 ms [facility] T wave axis 66 degrees [facility] GLUCOSE, FINGERSTICK-IN OFFI CEon 09-04-2022 Glucose [Mass/Vol] 199 mg/dL High 80-116 [facility] Comment on above: Performed By: #### A PTT, PT #### [facility] [address] [place] [address], Glucose [Mass/Vol] 199 mg/dL High 80 - 116 mg/dL [facility] Interpretation and review of laboratory results Abnormal [facility] Glucose [Mass/Vol] 338 mg/dL High 80-116 [facility] Comment on above: Performed By: #### [id number] #### NURSING GLUCOSE PROGRAM [address] [place], [address] Glucose [Mass/Vol] 338 mg/dL High 80 - 116 mg/dL [facility] Interpretation and review of laboratory results Abnormal [facility] Glucose [Mass/Vol] 337 mg/dL High 80-116 [facility] Comment on above: Performed By: #### A PTT, PT #### [facility] [address], [place], Glucose [Mass/Vol] 337 mg/dL High 80 - 116 mg/dL [facility] Interpretation and review of laboratory results Abnormal [facility] Glucose [Mass/Vol] 236 mg/dL High 80-116 [facility] Comment on above: Result Comment: Foll ow Protocol Performed By: #### [id number] ####NURSING GLUCOSE [id number] [place], [address] Glucose [Mass/Vol] 236 mg/dL High 80 - 116 mg/dL [facility] Comment on above: Follow Protocol Notified ETELVINA MCMANUS MD Interpretation and review of laboratory results Abnormal [facility] H AND Mandeep 09-04-2022 [employer] Authentication Interface Message Text Attestation signed by Juan Starkey MD at 09/04/2022 2:36 PM Teaching Physician Note: I saw and evaluated the patient. I personally obtained the haskins and critical portions of the history and physical exam. I reviewed the resident's documentation and discussed the patient with the resident. I agree with the resident's medical decision making as documented in the resident's note. 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 Patient reports getting out of grocery store while it was raining to get into car of son, next thing she remembers is waking up on the ground, Patient denies any prodromal symptoms such as chest pain, weakness, lightheadedness or sensation of pre-syncope. Denies urinary or stool incontinence. Came back to baseline immediately. Son was in the car but did not witness fall, however says came back to baseline immediately and no shaking was observed. Patient currently reports pain to right mandible where there is bruise, otherwise denies chest pain, abdominal pain, nausea or vomiting. Denies cough or sputum production. Usually has baseline SOB on exertion, did not notice a recent worsening. No other complaints reported. IN THE ED: - VS: Vital Signs 09/04/2022 BP-Systolic 149 BP-Diastolic 52 Pulse 64 Resp 18 Oxygen Level 98 - Labs: CBC wbc 12.0, anemia 10.4, platelets 245 BMP Cr 1.24, glucose 145, otherwise wnl PT/PTT wnl LA wnl 1.2 HS trop 79 --> 68 BNP 894 Ethanol <10 HIV negative COVID positive, influenza negative - Imaging: XR RT FEMUR MIN 2 VIEWSPRO/RT 09/03/2022 No acute right femur fracture XR LT FEMUR MIN 2 VIEWSPRO/LT 09/03/2022 No acute left femur fracture. CT L-SPINE W/O CONTRAST 09/03/2022 No fracture or malalignment of the lower thoracic or lumbar spine. CT T-SPINE W/O CONTRAST 09/03/2022 No acute fracture or malalignment of the thoracic spine CT ABD/[facility] ED I/V COLLIN W/ CONTRAST 09/03/2022 1. No traumatic injury identified. 2. Extensive atherosclerosis with mild stenosis of the distal superior mesenteric artery. 3. Mild cardiomegaly with mild interlobular septal thickening suggestive of pulmonary edema. 4. Diverticulosis without evidence of diverticulitis. 5. Severe mitral annular calcifications. CTA CHEST PULMONARY EMBOLISM W/ CTA 09/03/2022 1. Negative for acute pulmonary embolus. 2. Mild interlobular septal thickening suggestive of early pulmonary edema. 3. Enlarged main pulmonary artery measuring up to 3.5 cm suggestive of pulmonary hypertension. 4. A 8 mm right upper lobe pleural-based linear nodule likely present focal atelectasis or scarring. - Tx: Fentanyl Lasix 20mg IV once LR 500ml run HISTORY: Past Medical History: Diagnosis Date (HFpEF) heart failure with preserved ejection fraction (HCC) CKD (chronic kidney disease) stage 3, GFR 30-59 ml/min ([facility]) Essential (primary) hypertension Left humeral fracture Pulmonary hypertension ([facility]) S/P aortic valve replacement with 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) Severe aortic regurgitation Severe mitral valve stenosis Type 2 diabetes mellitus without complication, with long-term current use of insulin ([facility]) Past Surgical History: Procedure Laterality Date APPENDECTOMY CHOLECYSTECTOMY ORIF DISTAL FEMUR FRACTURE SOCIAL HISTORY: Smoker: No Alcohol: No Drug use: No FAMILY HISTORY: Review of patient's family history indicates: Problem: Diabetes Mellitus Relation: Mother Age of Onset: (Not Specified) Problem: Hypertension Relation: Mother Age of Onset: (Not Specified) MEDICATIONS: No current facility-administere d medications on file prior to encounter. Current Outpatient Medications on File Prior to Encounter Medication Sig Dispense Refill losartan (COZAAR) 25 MG tablet Take 0.5 Tablets by mouth daily. metoprolol (TOPROL-XL) 25 mg XL tablet Take 25 mg by mouth daily. Potassium Chloride ER 20 MEQ TBCR sodium bicarbonate 650 MG tablet Take 1,300 mg by mouth 2 times daily. aspirin EC 81 MG tablet Take 81 mg by mouth. furosemide (LASIX) 20 (more content not included)... Normal [facility] HIGH SENSITIVITY TROPONIN IO rdered By: Petty Alegre on 09-04-2022 Troponin I.cardiac DL <= 0.01 ng/mL [Mass/Vol] 68 ng/L Critically high NINF - 15 ng/L [facility]OP[facility]IN Io n 09-04-2022 HS TROPONIN I 68 ng/L Critically high <=15 [facility] Comment on above: Order Comment: High Sensitivity Cardiac Troponin I (hsTnI) assay has replaced the conventional troponin assay at [facility].All results are reported in whole numbers representing ng/L.Repeat test times for ruling out acute coronary syndrome (ACS) are every 2 hours instead of every 6-8 hours.[id number] conventional troponin (I-stat) will remain available in the Main [place] ED ??? results obtained by different labs or methods are not comparable.Elevated troponin can result from acute myocardial infarction (coronary etiology) or myocardial injury (non-coronary etiology) ??? always consider both.For ruling out acute coronary syndrome (ACS), lab values are always used in conjunction with clinical risk assessment (e.g., HEART score).Interpreting initial value in ruling out ACSLess than 5 ng/L ??? below lower limit of quantification ??? essentially rules out ACS if chest pain began more than 3 hours prior to test and assessed risk is low5 - 49 ng/L ??? indeterminate ??? consider repeat value in 2 hours depending on risk [id number] ng/L or greater??? concern for ACS or myocardial injuryInterpreting repeated values in ruling out ACS.Always compare to initial value obtained:Increase of less than 5 ng/L ??? essentially rules out ACS if chest pain began more than 3 hours prior to initial test and assessed risk is lowIncrease of 5 - 19 ng/L ??? indeterminate ??? consider another repeat value in 2 hours depending on risk assessmentIncrease of 20 ng/L or greater ??? Concern for ACS or myocardial injuryAny absolute value of 50 ng/L or greater ??? concern for ACS or myocardial injuryIntermediate hsTnI values DO NOT mandate admission to a cardiology or telemetry unit. They need to be interpreted within the clinical context using provider judgement.When using hsTnI to calculate the HEART score, use the 99 % Upper Reference Limit of 15 ng/L as the normal limit (i.e. <=15 ng/L = 0 points, 16-45 ng/L = 1 points, >45 ng/L = 2 points). Performed By: #### A PTT, PT #### [facility] [address] [place] [address], [id number] Lipid 1996 panelon 2 Cholesterol [Mass/Vol] 163 mg/dL NINF - 200 mg/dL [facility] Cholesterol in HDL [Mass/Vol] 44 mg/dL Low 54 - PINF mg/dL [facility] Cholesterol in LDL [Mass/Vol] 109 mg/dL NINF - 111 mg/dL [facility] Cholesterol in LDL/Cholesterol in HDL [Mass ratio] 2.48 {ratio} NINF - 3.57 [facility] Cholesterol non HDL [Mass/Vol] 119 mg/dL NINF - 130 mg/dL [facility] Cholesterol.total/Chol esterol in HDL [Mass ratio] 3.70 {ratio} NINF - 5.00 [facility] Interpretation and review of laboratory results Abnormal [facility] Triglyceride [Mass/Vol] 78 mg/dL NINF - 151 mg/dL [facility] Procedureson 09-04-2022 Narrow Gauge Engineer Authentication Interface Message Text Transthoracic Echocardiographic Report Name: KASH MACIEL Interpreting MATT Quintero MD Physician: : 1935 Referring ANTHONY JOSE DO Physician: Age: 86 Classified Ad Taker: Cinthya Shannon RDCS Exam Date: 09/04/2022 Fellow: 10:49 AM CVT: PCP: Gender: Female Height 160.02 cm Weight 69.8544 kg Encounter #: BSA 1.73 m2 Study Emergency BMI 27.28 kg/m2 Location: Department Technical Fair-Poor Quality: Type of Study: TTE procedure: 2D echocardiogram, M-Mode, Doppler , Color Doppler, Contrast study. Indications for Study:Congestive heart failure. Tech. Comments Patient identified by name and date of . Doctor's order(s) verified. Patient's preferred language is Angolan . Verbal consent for left heart echo contrast was obtained after explanation of the risks (1/10,000 significant and 1/3,000 minor allergic reactions) and benefits (needed enhancement of imaging) were explained. Administration of 1 dose(s) of 1.5 ml of Definity diluted to .5 ml of saline was administered by cinthya shannon rdcs. Supine BP: 149/52 mmHg Patient Status: Routine Contrast Medium: Definity. Left Ventricle Value Normal Value Normal LVIDd: 4.4 cm <5.7 cm Post. Wall 1.1 cm <1.2 cm Thickness: Septum 1 cm <1.2 cm LV FS: 45.45 % 30-40% Diastolic: Systolic 2.4 cm <4 cm LV Mass 183.42g Dimension: LV Mass Index: 106 <110 Women<120 g/m2 Men Left Atrium LA Dimension: 5.1 cm <3.92cm Right Cavities Ventricle Atrium RV (apical 4): 5.1 cm <4.3 cm RA (apical 4): 5.5 cm <4.6 cm Findings/Conclusions Chambers LV Left ventricular systolic function is normal (regional wall motion and LVEF). Left ventricular hypertrophy is absent. The LV chamber size is normal. The left ventricular ejection fraction (LVEF) is 70% +/- 5%by the biplane summation of discs (Gould's rule) method. LA The left atrial size is severely increased. The left atrial volume index is 79 mL/m2 (normal: <35 mL/m2, mild: 35-41 mL/m2, moderate: 42-48 mL/m2, severe: >48 mL/m2). RV The right ventricle is dilated. Right ventricular function is severely reduced. The percent area shortening is 20 (normal >35%). RA The right atrium is dilated. The dilatation is severe. The right atrial volume indexed to BSA is enlarged at 51 mL/m2 (normal for males <39 mL/m2, females <33 mL/m2). Valves AV A prosthetic aortic valve is present. It is a tissue valve. Prosthetic valve peak gradient is 36 mmHg, mean gradient is 21 mmHg. This is suggestive of a moderately stenotic prosthesis depending on the size and type of valve used. MV Mitral valvular stenosis is present. Peak gradient is 34 mmHg, mean gradient is 17 mmHg. These were at an average heart rate of 69 bpm. This suggests the stenosis is severe. There is physiologic mitral regurgitation. TV There is mild tricuspid regurgitation. PV Normal pulmonic valve. Great Vessels Normal sinus of Valsalva. Pericardium/Pleura No evidence of a pericardial effusion. Hemodynamics Estimated pulmonary artery systolic pressure is 75 mmHg +/- 5 mmHg. (Upper normal is <40 mmHg). Estimated RA pressure is 5 mmHg. Summary Normal LV systolic function. The left ventricular ejection fraction (LVEF) is 70%. Globally abnormal RV systolic function. Dilated left atrium, right ventricle, right atrium. Severe mitral valve stenosis. The prosthetic aortic valve appears to be moderately stenosed. Noninvasive hemodynamic assessment is consistent with severe pulmonary hypertension (>60 mmHg), a normal CVP. See above for further details. Authenticated by: Electronically signed and authenticated by MATT Quintero MD(Interpreting physician) on 09/04/2022 12:03 PM Normal [facility] Progress Noteson 09-04-2022 Narrow Gauge Engineer Authentication Interface Message Text Dental Consult The Dental Department was asked to consult on this patient by Emergency Department, the Attending physician for the patient care is Dr. Juan Starkey, and the dental resident assigned to her care is Dr. Oswaldo Mccall. No chief complaint on file. 86 year old was admited for trauma reports the following symptoms: History of present illness: patient fell from standing a day ago and complains of pain from her teeth when she bites together. Past Medical History: Diagnosis Date (HFpEF) heart failure with preserved ejection fraction ([facility]) CKD (chronic kidney disease) stage 3, GFR 30-59 ml/min ([facility]) Essential (primary) hypertension Left humeral fracture Pulmonary hypertension ([facility]) S/P aortic valve replacement with 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) Severe aortic regurgitation Severe mitral valve stenosis Type 2 diabetes mellitus without complication, with long-term current use of insulin ([facility]) No current facility-administere d medications for this visit. Current Outpatient Medications: losartan (COZAAR) 25 MG tablet, Take 0.5 Tablets by mouth daily., Disp: , Rfl: metoprolol (TOPROL-XL) 25 mg XL tablet, Take 25 mg by mouth daily., Disp: , Rfl: Potassium Chloride ER 20 MEQ TBCR, , Disp: , Rfl: sodium bicarbonate 650 MG tablet, Take 1,300 mg by mouth 2 times daily., Disp: , Rfl: aspirin EC 81 MG tablet, Take 81 mg by mouth., Disp: , Rfl: furosemide (LASIX) 20 MG tablet, , Disp: , Rfl: OneTouch Ultra strip, USE 1 STRIP TO TEST 3 TIMES A DAY, Disp: , Rfl: Levemir 100 UNIT/ML injection, INJECT 35 UNITS SUBCUTANEOUSLY EVERY DAY, Disp: , Rfl: Facility-Administere d Medications Ordered in Other Visits: dextrose 10 % iv infusion, 125 mL, Intravenous, PRN OR glucagon (GLUCAGEN) 1 MG injection, 1 mg, Subcutaneous, PRN OR dextrose (GLUTOSE) 40 % oral gel, 15 g of glucose, Buccal, PRN OR dextrose (GLUTOSE) 40 % oral gel, 30 g of glucose, Buccal, PRN, Margmoses, Jaziel, DO insulin lispro (HumaLOG) 100 UNIT/ML injection, 2-9 Units, Subcutaneous, 3x Daily AC, Rolando Madsenan, DO, 2 Units at 09/04/22 1841 acetaminophen (TYLENOL) tablet, 650 mg, Oral, Q4H PRN, Anthony Jaziel, DO losartan (COZAAR) tablet, 12.5 mg, Oral, Daily, Jaziel Madsen, DO, 12.5 mg at 09/04/22 0829 aspirin EC tablet, 81 mg, Oral, Daily, Jaziel Madsen, DO, 81 mg at 09/04/22 0828 insulin glargine (LANTUS SOLOSTAR/BASAGLAR KWIKPEN) 100 UNIT/ML PEN injection, 20 Units, Subcutaneous, At Bedtime, Anthony Jaziel, DO Allergies Allergen Reactions Codeine Hives Hydrocodone Hives Hydrocodone-Acetamin ophen Hydroxychloroquine Nausea Sulfamethoxazole W-Trimethoprim Hives Hydroquinone Rash Clinical Exam Teeth #5- #8 were tender to palpation. Tooth #8 has grade 1 mobility. Radiographic Examination No dental x-ray taken. Differential Diagnosis ; Concussion of teeth #5-#7 Grade 1 mobility of #8 Treatment ; Patient should continue on hospital administered Acetaminophen as necessary. Should come to the dental clinic for definitive management of teeth #5-#8 Recommendations ; Patient should avoid eating anything hard with the teeth on the right side. Warm soft diet is recommended. On discharge, patient has been advised to come to the [facility] for comprehensive evaluation and treatment of teeth #5-#8 Follow-up ; [facility] Oswaldo Mccall DDS Normal The [employer] Interface Message Text Plastic Surgery Update Note: Imaging and exam reviewed with Dr. Mayers this morning. Alveolar fracture is minimally displaced. Recommend inpatient dental consult for splinting of teeth for displaced teeth/malocclusion. No surgical intervention for alveolar fracture. Please call back for further concerns. Elier Camarillo MD Plastic Surgery Normal [facility] SARS-CoV-2 (COVID-19) RNA BLU+probe Ql (Unsp spec) This patient has initially tested positive for Sars-CoV-2 via PCR on 09/04/2022 This test may have been performed at an outside hospital or facility. This patient is due to have their COVID precautions discontinued on 09/17/2022 In accordance with the time-based isolation discontinuation strategy, COVID precautions will now be discontinued 14 days after the first + test. For more information refer to the [employer]. Normal [facility] TaoTaoSouation Interface Message Text Internal Medicine Group Home Plan Note Michael Kash [id number] Today's date: 09/04/2022 Admission date: 09/03/2022 CHIEF COMPLAINT: fall HPI: 86 year old female with PMH of HFpEF, hx of AV replacement, HTN, MV stenosis, CKD (unknown baseline), hx of syncope (unclear cause), and DM Type 2 who presents after a fall from standing. Ms. Hewitt gets most of her medical care at outside hospitals. In the ED, hypoxic to 83%, WBC 12 with left shift, Cr 1.24, HS troponin 79, BNP 894, CT chest suggestive of pulmonary edema, and admitted to medicine. Patient seen and examined at bedside. Ms. Hewitt is accompanied by her son at the bedside. Ms. Hewitt is doing ok today. She states she thinks she tripped on something in the grocery store and fell down. She had no chest pain, light headedness, confusion, LOC, or other symptoms with it. She takes all of her medications at home. She strongly denies feeling dizzy before falling. No alcohol use, no drug use, no tobacco use. Lives by herself, sons are close by. Pertinent Labs/Imaging (personally reviewed): Gen: White female in NAD. Good affect. HEENT: Normocephalic, atraumatic. EOMI. Oral and mucus membranes dry. Noted dried blood in mouth. Neck: Supple. No lymphadenopathy CV: Regular rate and rhythm. No murmurs. No S3 or S4 noted. No JVD present. Mechanical noted. Lungs: Clear to auscultation bilaterally. No wheezes, rales, or rhonchi. Good air movement. Abdomen: Soft. Non-tender. Non-distended. No organomegaly. Normoactive bowel sounds. Extremities: No clubbing, cyanosis, or edema. 2+ peripheral pulses. Neuro: A AND Ox3. No focal deficits appreciated. Skin: Warm and well perfused. ASSESSMENT AND PLAN: #Fall #Sinus Bradycardia #Compensated HFpEF #Pulmonary Hypertension #Myocardial Injury -denies LOC or other symptoms before fall -no chest pain, SOB, or other symptoms -patient feels it was a mechanical fall -appears dry on examination, does not appear fluid overloaded -could be related to pulmonary hypertension, bradycardia -has had cough recently, very dry -differential: mechanical fall, arrhythmia (possible given complex cardiac hx, sinus bradycardia on arrival), dehydration (suggested by JULIO), vasovagal syncope, orthostatic syncope, symptomatic /pulmHTN, stroke (no focal deficits), Plan: -restart home meds -echocardiogram in AM -telemetry monitoring, will need event detector on discharge -PT/OT -orthostatic vitals, will give 500 cc LR, hold lasix at this time -check COVID/flu -hold metoprolol given sinus bradycardia and concern for syncope, consider cardiology consult given hx of HF in setting of sinus bradycardia and need for beta blockade #Leukocytosis -WBC of 12 with left shift -could be reactive vs. Infectious etiology -CTA not suggestive of infectious etiology Plan: -check UA -monitor for signs of infection #JULIO -unclear creatinine baseline -elevated BUN/creatinine ratio Plan: -give 500 cc of LR -trend BMP Chronic Issues/Other Issues: #AV Replacement #MV Stenosis #DM Type 2 -check A1c, lipids Code Status: Patient has living will and HCPOA (her son) already established. Code status reexplained at length. Patient indicates she does not want resuscitated and understands risks and benefits. Therefore, patient is DNRCCADNI at this time. Rest of plan per health information internship note. Jaziel Madsen DO PGY-3 [id number] Normal [facility] Narrow Gauge Engineer Authentication Interface Message Text Incidental Findings Discussion held with Michael Hewitt regarding incidental findings from the diagnostic test(s,) CAT scan of chest and CAT scan of cervical spine The incidental findings letter and a copy of the radiographic report has been provided to Michael Hewitt, as well as filed in the patient's medical record. The Patient has agreed to follow up with their PCP in regards to these findings: INCIDENTALS: Possible multinodular thyroid goiter with possible small nodules measuring up to approximately 5mm. Enlarged main pulmonary artery measuring up to 3.5cm suggestive of pulmonary hypertension. Franky Moffett DO Normal [facility] Troponin I.cardiac DL <= 0.0 1 ng/mL [Mass/Vol]Ordered By: Petty Alegre on 09-04-2022 Interpretation and review of laboratory results Abnormal [facility] High Sensitivity Cardiac Troponin I (hsTnI) assay has replaced the conventional troponin assay at [facility]. All results are reported in whole numbers representing ng/L. Repeat test times for ruling out acute coronary syndrome (ACS) are every 2 hours instead of every 6-8 hours. [id number] conventional troponin (I-stat) will remain available in the Main [place] ED results obtained by different labs or methods are not comparable. Elevated troponin can result from acute myocardial infarction (coronary etiology) or myocardial injury (non-coronary etiology) always consider both. For ruling out acute coronary syndrome (ACS), lab values are always used in conjunction with clinical risk assessment (e.g., HEART score). Interpreting initial value in ruling out ACS Less than 5 ng/L below lower limit of quantification essentially rules out ACS if chest pain began more than 3 hours prior to test and assessed risk is low 5 - 49 ng/L indeterminate consider repeat value in 2 hours depending on risk assessment 50 ng/L or greater concern for ACS or myocardial injury Interpreting repeated values in ruling out ACS. Always compare to initial value obtained: Increase of less than 5 ng/L essentially rules out ACS if chest pain began more than 3 hours prior to initial test and assessed risk is low Increase of 5 - 19 ng/L indeterminate consider another repeat value in 2 hours depending on risk assessment Increase of 20 ng/L or greater Concern for ACS or myocardial injury Any absolute value of 50 ng/L or greater concern for ACS or myocardial injury Intermediate hsTnI values DO NOT mandate admission to a cardiology or telemetry unit. They need to be interpreted within the clinical context using provider judgement. When using hsTnI to calculate the HEART score, use the 99 % Upper Reference Limit of 15 ng/L as the normal limit (i.e. <=15 ng/L = 0 points, 16-45 ng/L = 1 points, >45 ng/L = 2 points). [facility] XR Femur - left 2 Viewson EXAMINATION: XR LT FEMUR MIN 2 VIEWSPRO/LT 09/03/2022 09:39 PM CLINICAL HISTORY: Reason for Exam: trauma, ttp COMPARISON: None FINDINGS: No acute fracture is identified. There is no radiopaque foreign body. 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 Tricompartmental knee osteoarthritis. Atherosclerotic vascular calcifications. IMPRESSION: No acute left femur fracture. Left femur MACRO: None RADIOLOGY Bala Person MD - 09/04/2022 EXAMINATION: XR LT FEMUR MIN 2 VIEWSPRO/LT 09/03/2022 09:39 PM CLINICAL HISTORY: Reason for Exam: trauma, ttp COMPARISON: None FINDINGS: No acute fracture is identified. There is no radiopaque foreign body. 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 Tricompartmental knee osteoarthritis. Atherosclerotic vascular calcifications. IMPRESSION: No acute left femur fracture. Left femur MACRO: None [facility] XR LT FEMUR MIN 2 VIEWSon XR LT FEMUR MIN 2 VIEWS EXAMINATION: XR LT FEMUR MIN 2 VIEWSPRO/LT 09/03/2022 09:39 PM CLINICAL HISTORY: Reason for Exam: trauma, ttp COMPARISON: None FINDINGS: No acute fracture is identified. There is no radiopaque foreign body. 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 Tricompartmental knee osteoarthritis. Atherosclerotic vascular calcifications. IMPRESSION: No acute left femur fracture. Left femur MACRO: None Normal [facility] XR RT FEMUR MIN 2 VIEWSon XR RT FEMUR MIN 2 VIEWS EXAMINATION: XR RT FEMUR MIN 2 VIEWSPRO/RT 09/03/2022 09:39 PM CLINICAL HISTORY: Reason for Exam: trauma, ttp COMPARISON: None FINDINGS: No acute fracture is identified. There is no radiopaque foreign body. Bssp-ys-aeyuhzyh hip osteoarthritis. Tricompartmental knee osteoarthritis. Atherosclerotic vascular calcifications. IMPRESSION: No acute right femur fracture. Right femur MACRO: None Normal [facility] ABO RH TYPEon 09-03-2022 ABO and Rh group Nom (Bld) Blood group A Rh(D) positive Normal [facility] Comment on above: Performed By: #### A PTT, PT #### [facility] [address] [place] [address], BASIC METABOLIC PANELon 08-20 Anion gap [Moles/Vol] 14 mmol/L Normal 10-20 [facility] Comment on above: Performed By: #### A PTT, PT #### [facility] [address] [place] [address], Calcium [Mass/Vol] 9.0 mg/dL Normal 8.4-10.4 [facility] Comment on above: Performed By: #### A PTT, PT #### [facility] [address] [place] [address], Chloride [Moles/Vol] 102 mmol/L Normal 97-111 [facility] Comment on above: Performed By: #### A PTT, PT #### [facility] [address], [place], CO2 [Moles/Vol] 27 mmol/L Normal 21-30 [facility] Comment on above: Performed By: #### A PTT, PT #### [facility] [address], [place], Creatinine [Mass/Vol] 1.24 mg/dL High 0.50-1.10 [facility] Comment on above: Performed By: #### A PTT, PT #### [facility] [address], [place], ESTIMATED GFR (CKD-EPI) 43 mL/min/1.73sqm Low >=60 [facility] Comment on above: Result Comment: 2020 CKD EPI Equation using Creatinine without Race Comment: Estimated glomerular filtration rate (eGFR) is calculated without a race coefficient. Values should be interpreted in the context of the patient's full clinical presentation. Reference: 1. Nicko C, Cyn M, Ibeth OLMEDO, et al.. A Unifying Approach for GFR Estimation: Recommendations of the NKF-ASN Task Force on Reassessing the Inclusion of Race in Diagnosing Kidney Disease. [place] [employer] Journal of Kidney Diseases 2021;79(2):268-88.e1. 2. N Engl J Med 1 Vol. 385 Issue 19 Pages 5638-1470 Performed By: #### A PTT, PT #### [facility] [address], [place], Glucose [Mass/Vol] 145 mg/dL High 80-116 [facility] Comment on above: Performed By: #### A PTT, PT #### [facility] [address], [place], Potassium [Moles/Vol] 4.0 mmol/L Normal 3.3-5.3 [facility] Comment on above: Performed By: #### A PTT, PT #### [facility] [address], [place], Sodium [Moles/Vol] 139 mmol/L Normal 135-148 [facility] Comment on above: Performed By: #### A PTT, PT #### [facility] [address] [place] [address], Urea nitrogen [Mass/Vol] 38 mg/dL High 8-22 [facility] Comment on above: Performed By: #### A PTT, PT #### [facility] [address], [place], Basic metabolic 2000 panelon 09-03-2022 Anion gap [Moles/Vol] 14 mmol/L 10 - 20 [facility] Calcium [Mass/Vol] 9.0 mg/dL 8.4 - 10. 4 mg/dL [facility] Chloride [Moles/Vol] 102 mmol/L 97 - 11 1 mmol/L [facility] CO2 [Moles/Vol] 27 mmol/L 21 - 30 mmol/L [facility] Creatinine [Mass/Vol] 1.24 mg/dL High 0.50 - 1.10 mg/dL [facility] GFR/1.73 sq M.predicted MDRD (S/P/Bld) [Vol rate/Area] 43 mL/min/{1.73_m2} Low - PINF [facility] Comment on above: 2020 CKD EPI Equatio n using Creatinine without Race Comment: Estimated glomerular filtration rate (eGFR) is calculated without a race coefficient. Values should be interpreted in the context of the patient's full clinical presentation. Reference: 1. Nicko C, Cyn M, Ibeth DC, et al.. A Unifying Approach for GFR Estimation: Recommendations of the NKF-ASN Task Force on Reassessing the Inclusion of Race in Diagnosing Kidney Disease. [place] [employer] Journal of Kidney Diseases 2021;79(2):268-88.e1. 2. N Engl J Med 2020 Vol. 385 Issue 19 Pages 8908-1840 Glucose [Mass/Vol] 145 mg/dL High 80 - 116 mg/dL [facility] Interpretation and review of laboratory results Abnormal [facility] Potassium [Moles/Vol] 4.0 mmol/L 3.3 - 5.3 mmol/L [facility] Sodium [Moles/Vol] 139 mmol/L 135 - 148 mmol/L [facility] Urea nitrogen [Mass/Vol] 38 mg/dL High 8 - 22 mg/dL [facility] CBC AUTO DIFFon 09-03-2022 BASO # 0.1 103/ul Normal 0.0-0.1 [facility] Comment on above: Performed By: #### C VDTBH #### [facility] [address] [place] [address] Dr. Adan Rinaldi Basophils/100 WBC (Bld) 1.1 % Normal 0.2-2.0 [facility] Comment on above: Performed By: #### C VDTBH #### [facility] [address] [place] [address] Dr. Adan Rinaldi EO # 0.4 103/ul Normal 0.0-0.7 [facility] Comment on above: Performed By: #### C VDTBH #### [facility] [address] [place] [address] Dr. Adan Rinaldi Eosinophils/100 WBC (Bld) 5.3 % Normal 0.9-7.0 [facility] Comment on above: Performed By: #### C VDTBH #### [facility] [address] [place] [address] Dr. Adan Rinaldi Erythrocyte distribution width (RBC) [Ratio] 14.6 % Normal 11.0-15.0 [facility] Comment on above: Performed By: #### C VDTBH #### [facility] [address] [place] [address] Dr. Adan Rinaldi Hematocrit (Bld) [Volume fraction] 33.3 % Critically low 36.0-48.0 [facility] Comment on above: Performed By: #### C VDTBH #### [facility] [address] [place] [address] Dr. Adan Rinaldi Hemoglobin (Bld) [Mass/Vol] 10.6 g/dL Critically low 12.0-16.0 [facility] Comment on above: Performed By: #### C VDTBH #### [facility] [address] [place] [address] Dr. Adan Rinaldi IG # 0.03 10e3/ul Normal 0.00-0.03 [facility] Comment on above: Performed By: #### C VDTBH #### [facility] [address] [place] [address] Dr. Adan Rinaldi IG % 0.5 % Normal 0.0-0.5 [facility] Comment on above: Performed By: #### C VDTBH #### [facility] [address] [place] [address] Dr. Adan Rinaldi LYMPH # 1.1 103/ul Critically low 1.2-3.8 [facility] Comment on above: Performed By: #### C VDTBH #### [facility] [address] [place] [address] Dr. Adan Rinaldi Lymphocytes/100 WBC (Bld) 17.0 % Critically low 20.5-60.0 [facility] Comment on above: Performed By: #### C VDTBH #### [facility] [address] [place] [address] Dr. Adan Rinaldi MANUAL DIFF REQ NO Normal [facility] Comment on above: Performed By: #### C VDTBH #### [facility] [address] [place] [address] Dr. Adan Rinaldi MCH (RBC) [Entitic mass] 28.5 pg Normal 26.7-34.0 [facility] Comment on above: Performed By: #### C VDTBH #### [facility] [address] [place] [address] Dr. Adan Rinaldi MCHC (RBC) [Mass/Vol] 31.8 g/dL Normal 29.9-35.2 [facility] Comment on above: Performed By: #### C VDTBH #### [facility] [address] [place] [address] Dr. Adan Rinaldi MCV (RBC) [Entitic vol] 89.5 fL Normal 81.0-99.0 [facility] Comment on above: Performed By: #### C VDTBH #### [facility] [address] [place] [address] Dr. Adan Rinaldi MONO # 0.6 103/ul Normal 0.3-0.8 [facility] Comment on above: Performed By: #### C VDTBH #### [facility] [address] [place] [address] Dr. Adan Rinaldi Monocytes/100 WBC (Bld) 9.1 % Normal 1.7-12.0 [facility] Comment on above: Performed By: #### C VDTBH #### [facility] [address] [place] [address] Dr. Adan Rinaldi NEUT # 4.4 103/ul Normal 1.4-6.5 [facility] Comment on above: Performed By: #### C VDTBH #### [facility] [address] [place] [address] Dr. Adan Rinaldi Neutrophils/100 WBC (Bld) 67.0 % Normal 43.0-75.0 [facility] Comment on above: Performed By: #### C VDTBH #### [facility] [address] [place] [address] Dr. Adan Rinaldi Platelet mean volume (Bld) [Entitic vol] 9.8 fL Normal 9.5-13.5 [facility] Comment on above: Performed By: #### C VDTBH #### [facility] [address] [place] [address] Dr. Adan Rinaldi PLT 233 103/ul Normal 150-450 [facility] Comment on above: Performed By: #### C VDTBH #### [facility] [address] [place] [address] Dr. Adan Rinaldi RBC 3.72 106/ul Critically low 4.20-5.40 [facility] Comment on above: Performed By: #### C VDTBH #### [facility] [address] [place] [address] Dr. Adan Rinaldi WBC 6.6 103/ul Normal 4.0-11.0 [facility] Comment on above: Performed By: #### C VDTBH #### [facility] [address] [place] [address] Dr. Adan Rinaldi CBC WITH DIFFERENTIALon 08-20 Basophils (Bld) [#/Vol] 0.09 10*3/uL Normal 0.00-0.20 [facility] Comment on above: Performed By: #### C BCDSAT ####[facility] [id number] [place] [address], #### HB A1C ####[facility] [address] [place], [address] Basophils/100 WBC (Bld) 0.7 % Normal <=1.9 [facility] Comment on above: Performed By: #### C BCDSAT ####[facility] [id number] [place] [address], #### HB A1C ####[facility] [address] [place], [place], Eosinophils (Bld) [#/Vol] 0.18 10*3/uL Normal 0.00-0.70 [facility] Comment on above: Performed By: #### C BCDSAT ####[facility] [id number] [place] [address], #### HB A1C ####[facility] [address] [place] [address], Eosinophils/100 WBC (Bld) 1.5 % Normal 0.1-4.0 [facility] Comment on above: Performed By: #### C BCDSAT ####[facility] [id number] [place] [address], #### HB A1C ####[facility] [address] [place] [address], Erythrocyte distribution width (RBC) [Ratio] 15.4 % High 11.5-14.5 [facility] Comment on above: Performed By: #### C BCDSAT ####[facility] [id number] [place] [address], #### HB A1C ####[facility] [address] [place], [place], Hematocrit (Bld) [Volume fraction] 30.7 % Low 36.0-46.0 [facility] Comment on above: Performed By: #### C BCDSAT ####[facility] [id number] [place] [address], #### HB A1C ####[facility] [address] [place], [address] Hemoglobin (Bld) [Mass/Vol] 10.4 g/dL Low 12.0-15.0 [facility] Comment on above: Performed By: #### C BCDSAT ####[facility] [id number] [place] [address], #### HB A1C ####[facility] [address] [place], [place], Lymphocytes (Bld) [#/Vol] 1.10 10*3/uL Normal 1.00-4.80 [facility] Comment on above: Performed By: #### C BCDSAT ####[facility] [id number] [place] [address], #### HB A1C ####[facility] [address] [place], [place], Lymphocytes/100 WBC (Bld) 9.1 % Low 24.0-44.0 [facility] Comment on above: Performed By: #### C BCDSAT ####[facility] [id number] [place] [address], #### HB A1C ####[facility] [address] [place], [place], MCH (RBC) [Entitic mass] 29.9 pg Normal 26.0-34.0 [facility] Comment on above: Performed By: #### C BCDSAT ####[facility] [id number] [place] [address], #### HB A1C ####[facility] [address] [place], [place], MCHC (RBC) [Mass/Vol] 33.9 g/dL Normal 32.0-35.9 [facility] Comment on above: Performed By: #### C BCDSAT ####[facility] [id number] [place] [address], #### HB A1C ####[facility] [address] [place], [place], MCV (RBC) [Entitic vol] 88 fL Normal 80-100 [facility] Comment on above: Performed By: #### C BCDSAT ####[facility] [id number] [place] [address], #### HB A1C ####[facility] [address] [place], [address] MONOCYTE DISTRIBUTION WIDTH 18 Normal <=20 [facility] Comment on above: Performed By: #### C BCDSAT ####[facility] [id number] [place] [address], #### HB A1C ####[facility] [address] [place], [address] Monocytes (Bld) [#/Vol] 0.83 10*3/uL Normal 0.20-1.00 [facility] Comment on above: Performed By: #### C BCDSAT ####[facility] [id number] [place] [address], #### HB A1C ####[facility] [address] [place], [address] Monocytes/100 WBC (Bld) 6.9 % Normal 2.0-11.0 [facility] Comment on above: Performed By: #### C BCDSAT ####[facility] [id number] [place] [address], #### HB A1C ####[facility] [address] [place], [address] Neutrophils (Bld) [#/Vol] 9.82 10*3/uL High 1.50-8.00 [facility] Comment on above: Performed By: #### C BCDSAT ####[facility] [id number] [place] [address], #### HB A1C ####[facility] [address] [place], [address] Neutrophils/100 WBC (Bld) 81.7 % High 31.0-76.0 [facility] Comment on above: Performed By: #### C BCDSAT ####[facility] [id number] [place] [address], #### HB A1C ####[facility] [address] [place], [place], Platelet mean volume (Bld) [Entitic vol] 7.7 fL Normal 7.5-11.2 [facility] Comment on above: Performed By: #### C BCDSAT ####[facility] [id number] [place] [address], #### HB A1C ####[facility] [address] [place], [place], Platelets (Bld) [#/Vol] 245 10*3/uL Normal 150-400 [facility] Comment on above: Performed By: #### C BCDSAT ####[facility] [id number] [place] [address], #### HB A1C ####[facility] [address] [place], [place], RBC (Bld) [#/Vol] 3.48 10*6/uL Low 4.00-5.20 [facility] Comment on above: Performed By: #### C BCDSAT ####[facility] [id number] [place] [address], #### HB A1C ####[facility] [address] [place], [place], WBC (Bld) [#/Vol] 12.0 10*3/uL High 4.5-11.5 [facility] Comment on above: Performed By: #### C BCDSAT ####[facility] [id number] [place] [address], #### HB A1C ####[facility] [address] [place], [place], Basophils (Bld) [#/Vol] 0.09 10*3/uL 0.00 - 0.20 K/uL [facility] Basophils/100 WBC (Bld) 0.7 % NINF - 1.9 % [facility] Eosinophils (Bld) [#/Vol] 0.18 10*3/uL 0.00 - 0.70 K/uL [facility] Eosinophils/100 WBC (Bld) 1.5 % 0.1 - 4.0 % [facility] Erythrocyte distribution width (RBC) [Ratio] 15.4 % High 11.5 - 14.5 % [facility] Hematocrit (Bld) [Volume fraction] 30.7 % Low 36.0 - 46.0 % [facility] Hemoglobin (Bld) [Mass/Vol] 10.4 g/dL Low 12.0 - 15.0 g/dL [facility] Interpretation and review of laboratory results Abnormal [facility] Lymphocytes (Bld) [#/Vol] 1.10 10*3/uL 1.00 - 4.80 K/uL [facility] Lymphocytes/100 WBC (Bld) 9.1 % Low 24.0 - 44.0 % [facility] MCH (RBC) [Entitic mass] 29.9 pg 26.0 - 34.0 pg [facility] MCHC (RBC) [Mass/Vol] 33.9 g/dL 32.0 - 35.9 g/dL [facility] MCV (RBC) [Entitic vol] 88 fL 80 - 100 fL [facility] Monocyte distribution width Auto (Bld) [Entitic vol] 18 NINF - 20 [facility] Monocytes (Bld) [#/Vol] 0.83 10*3/uL 0.20 - 1.00 K/uL [facility] Monocytes/100 WBC (Bld) 6.9 % 2.0 - 11.0 % [facility] Neutrophils (Bld) [#/Vol] 9.82 10*3/uL High 1.50 - 8.00 K/uL [facility] Neutrophils/100 WBC (Bld) 81.7 % High 31.0 - 76.0 % [facility] Platelet mean volume (Bld) [Entitic vol] 7.7 fL 7.5 - 11.2 fL [facility] Platelets (Bld) [#/Vol] 245 10*3/uL 150 - 400 K/uL [facility] RBC (Bld) [#/Vol] 3.48 10*6/uL Low [facility] WBC (Bld) [#/Vol] 12.0 10*3/uL High 4.5 - 11.5 K/uL [facility] CSPINE WO CONon 2 CT CSPINE WO CON CT CERVICAL SPINE WITHOUT CONTRAST HISTORY: History of fall. COMPARISON: CT cervical spine 04/10/2021. TECHNIQUE: Helical CT images were performed of the cervical spine without intravenous contrast. Dose reduction techniques were achieved by using automated exposure control and/or adjustment of mA and/or kV according to patient size and/or use of iterative reconstruction technique. FINDINGS: DETECTIVE SUPERVISOR RADIOGRAPH: Unremarkable. MINERALIZATION: Moderate osteopenia. CRANIOCERVICAL AND ATLANTOAXIAL ARTICULATIONS: Intact with no traumatic subluxation. VERTEBRAL BODIES: Normal in height with no acute compression fracture. DISC SPACES: Mild multilevel disc space narrowing with mild osteophytic spurring compatible with degenerative changes. ALIGNMENT: Normal. POSTERIOR ELEMENTS: Intact. ODONTOID PROCESS: Intact. VISUALIZED SKULL BASE: Unremarkable. SPINAL CANAL/NEURAL FORAMEN: Multilevel bilateral neural foraminal stenosis due to facet and uncovertebral arthropathy. This includes moderate to severe right-sided neural foraminal stenosis at C5-C6. There are several posterior disc osteophyte complexes throughout the cervical spine with mild canal stenosis at several levels. UPPER THORAX: Interlobular septal thickening at the visualized lung apices suggestive of interstitial pulmonary edema. SOFT TISSUES OF THE NECK: The thyroid gland appears somewhat heterogeneous with a suggestion of a few small nodules measuring up to 5 mm. There is moderate atherosclerotic carotid artery calcification. IMPRESSION: 1. No acute fracture or subluxation. 2. Degenerative changes as described in the body of the report. 3. Osteopenia. 4. Possible multinodular thyroid goiter with possible small nodules measuring up to approximately 5 mm. No follow-up is required per ACR guidelines. 5. Atherosclerotic coronary artery calcification. Electronically authenticated by: АНДРЕЙ LOCK Date: 2022-09-03 16:32 Normal [facility] CT FACIAL BONES WO CONon CT FACIAL BONES WO CON EXAMINATION: CT FACIAL BONES WO CON HISTORY: History of fall COMPARISON: None. TECHNIQUE: CT examination of the facial bones without IV contrast. Coronal and sagittal reformations were performed. Dose reduction techniques were achieved by using automated exposure control and/or adjustment of mA and/or kV according to patient size and/or use of iterative reconstruction technique. FINDINGS: CERVICAL SPINE: The visualized portion of the cervical spine is intact. MANDIBLE: A mandibular fracture is not identified. VISUALIZED PARANASAL SINUSES: There is an approximately 2.0 cm polyp or mucous retention cyst in the right maxillary sinus. VISUALIZED MASTOID AIR CELLS: Clear. VISUALIZED DENTITION: There are abnormal lucency around the roots of tooth numbers 5, 6, 7, 8 and 9, associated with a nondisplaced fracture involving the alveolar ridge. ORBITAL CONTENTS: OS lens replacements are noted. Both globes, extraocular muscles and retrobulbar fat appear unremarkable. SOFT TISSUES: There is moderate stranding of subcutaneous fat planes superficial to the right maxilla and moderate stranding of subcutaneous fat planes superficial to the right mandibular body.. IMPRESSION: 1. Incomplete traumatic dental extraction involving tooth numbers 5, 6, 7, 8 and 9, associated with a nondisplaced fracture of the adjacent alveolar ridge. 2. Soft tissue swelling superficial to the right maxilla and right mandibular body, without underlying fracture. Electronically authenticated by: DONN ROSE Date: 2022-09-03 16:19 Normal [facility] CT HEAD WO CONon 09-03-2022 CT HEAD WO CON EXAMINATION: CT HEAD WO CON HISTORY: History of fall with head injury. COMPARISON: 06/09/2021 TECHNIQUE: CT examination of the head without IV contrast. Sagittal and coronal reconstructions were obtained. Dose reduction techniques were achieved by using automated exposure control and/or adjustment of mA and/or kV according to patient size and/or use of iterative reconstruction technique. FINDINGS: The ventricles aren't enlarged, the lateral ventricles are symmetric and the third ventricles in the midline. The sylvian fissures and cortical sulci are prominent in size. There is no evidence of an intracranial hemorrhage, mass lesion or apparent acute infarct. Punctate dystrophic calcifications are seen in the basal ganglia which are not felt to be significant. Patchy diminished attenuation is seen in the periventricular deep white matter diffusely. The cerebellum and visualized brainstem are intact. A mucocele or cyst is seen along the floor of the right maxillary sinus and the paranasal sinuses are otherwise relatively clear. The middle ears are aerated. The mastoid sinuses are clear. There is no apparent acute skull fracture. Bilateral lens implants are in place. IMPRESSION: There is no evidence of an intracranial hemorrhage, mass lesion or apparent acute infarct. Diffuse atrophy is present. Patchy diminished attenuation is seen in the deep white matter, most likely due to early small vessel ischemic change in a patient of this age. There is no apparent acute skull fracture. Similar findings were noted in the prior study. A mucocele or cyst is partially visualized in the right maxillary sinus and the visualized paranasal sinuses are relatively clear. Electronically authenticated by: CLIFFORD JACOBSON Date: 2022-09-03 16:07 Normal [facility] CT Lumbar spine WO contrasto n 09-03-2022 EXAMINATION: CT L-SPINE W/O CONTRAST 09/03/2022 09:44 PM CLINICAL HISTORY: Reason for Exam: Trauma; fall, chest wall tenderness COMPARISON: None TECHNIQUE: Thin axial images were obtained through the lumbar region without intravenous contrast. 2D sagittal and coronal reconstructions were obtained from the axial data. FINDINGS: Alignment: Normal. Vertebrae: No evidence of an acute fracture. No aggressive osseous lesions. Multilevel degenerative changes most pronounced at L1-L2 where there is intervertebral disc space height loss and endplate sclerosis. Canal and foramina: No evidence of significant spinal canal or neural foraminal stenosis. Visible sacrum and pelvis: Normal. The presacral soft tissues are normal in appearance. Sclerosis of the sacroiliac joints. Calcified atherosclerotic disease involving the aorta is major branches. Hiatal hernia. 1.7 cm right renal cyst. IMPRESSION: No fracture or malalignment of the lower thoracic or lumbar spine. MACRO: None RADIOLOGY Bala Person MD - 09/03/2022 EXAMINATION: CT L-SPINE W/O CONTRAST 09/03/2022 09:44 PM CLINICAL HISTORY: Reason for Exam: Trauma; fall, chest wall tenderness COMPARISON: None TECHNIQUE: Thin axial images were obtained through the lumbar region without intravenous contrast. 2D sagittal and coronal reconstructions were obtained from the axial data. FINDINGS: Alignment: Normal. Vertebrae: No evidence of an acute fracture. No aggressive osseous lesions. Multilevel degenerative changes most pronounced at L1-L2 where there is intervertebral disc space height loss and endplate sclerosis. Canal and foramina: No evidence of significant spinal canal or neural foraminal stenosis. Visible sacrum and pelvis: Normal. The presacral soft tissues are normal in appearance. Sclerosis of the sacroiliac joints. Calcified atherosclerotic disease involving the aorta is major branches. Hiatal hernia. 1.7 cm right renal cyst. IMPRESSION: No fracture or malalignment of the lower thoracic or lumbar spine. MACRO: None [facility] CT Thoracic spine WO contras ton 09-03-2022 EXAMINATION: CT T-SPINE W/O CONTRAST 09/03/2022 09:44 PM CLINICAL HISTORY: Reason for Exam: Trauma; fall, chest wall tenderness COMPARISON: None TECHNIQUE: Thin axial images were obtained through the thoracic region without intravenous contrast. 2D sagittal and coronal reconstructions were obtained from the axial data. FINDINGS: Alignment: Normal. Vertebrae: No evidence of an acute fracture. No aggressive osseous lesions. Multilevel degenerative changes. Thoracic soft tissue: The paraspinal soft tissues planes are maintained. Canal and foramina: No evidence of significant spinal canal or neural foraminal stenosis. Partially imaged plate and screw fixation of the left humeral fracture. Hiatal hernia. Mitral valve annulus calcifications. Aortic valve prosthesis. Calcifications of the aortic arch. IMPRESSION: No acute fracture or malalignment of the thoracic spine. Please see separate report for CTA chest 09/03/2022 MACRO: None RADIOLOGY aBla Person MD - 09/03/2022 EXAMINATION: CT T-SPINE W/O CONTRAST 09/03/2022 09:44 PM CLINICAL HISTORY: Reason for Exam: Trauma; fall, chest wall tenderness COMPARISON: None TECHNIQUE: Thin axial images were obtained through the thoracic region without intravenous contrast. 2D sagittal and coronal reconstructions were obtained from the axial data. FINDINGS: Alignment: Normal. Vertebrae: No evidence of an acute fracture. No aggressive osseous lesions. Multilevel degenerative changes. Thoracic soft tissue: The paraspinal soft tissues planes are maintained. Canal and foramina: No evidence of significant spinal canal or neural foraminal stenosis. Partially imaged plate and screw fixation of the left humeral fracture. Hiatal hernia. Mitral valve annulus calcifications. Aortic valve prosthesis. Calcifications of the aortic arch. IMPRESSION: No acute fracture or malalignment of the thoracic spine. Please see separate report for CTA chest 09/03/2022 MACRO: None [facility] Consultson 09-03-2022 Narrow Gauge Engineer Authentication Interface Message Text Dental Consult The Dental Department was asked to consult on this patient by Emergency Department No chief complaint on file. 86 year old was admited for trauma and reports the following symptoms: History of present illness: No past medical history on file. No current facility-administere d medications for this encounter. No current outpatient medications on file. Not on File Radiographic Examination No x-ray taken NOTE: ED contacted regarding this patient, patient had a trauma earlier today and I was consulted for her teeth from #5-#8 I could not see the entire image but patient is missing lower right posterior teeth, it looks like in the CT that patient has crown/ bridge in the maxillary right side. Severe Bone loss can be seen. Recommendations: It is recommended for patient to get a comprehensive examination done at [place] [facility] office. Panoramic and full mouth series of radiographs needed for definitive diagnosis. Follow-up [facility] Dentistry office after patient gets discharged from ED EFRA Jerez [facility] Narrow Gauge Engineer Authentication Interface Message Text PLASTIC SURGERY FACIAL TRAUMA CONSULT Name: Michael Hewitt : 1935 [facility] This 86 year old female date of injury was 09/03/2022. The patient was transported to [facility] by EMS. Initial evaluation at [facility]. Patient fell from standing at the grocery store earlier today hitting her face. Denies loss of consciousness. No blood thinners. She had imaging that showed incomplete dental extraction of multiple teeth and partial alveolar ridge fracture. Plastic Surgery consulted for alveolar ridge fracture. History obtained from son who is present at bedside. Medical history includes severe aortic stenosis s/p aortic valve replacement, acute on chronic CHF, CKD, DM, HTN. She lives at home alone but close to other family members who can help her. MECHANISM OF INJURY: Fall: from standing LOSS OF CONSCIOUSNESS: No ASSOCIATED INJURIES: None ROS: negative except per HPI PHYSICAL EXAMINATION There were no vitals filed for this visit. CONSTITUTIONAL: nad, conversational HEENT Visual Inspection: Swelling and ecchymosis of right lower chin, lip Lacerations: none Palpable Skeletal Deformities: none Nasal Examination: no external deformity Oral Examination: intraoral ecchymosis of right maxillary alveolar ridge Dentition: partial dentition with fracture of right maxillary alveolus Occlusion: occlusal stepoff at fracture site between teeth #8 and #9 EYE EXAMINATION: Eyelids: normal bilaterally Anterior Chamber: clear bilaterally Vision unable to examine Pupils PERRLA Eye Level normal bilateral Extraocular Motion EOMI- bilateral Cranial Nerves: all branches CN V intact and all branches CN VII intact Neck: unable to examine CV: regular rate Respiratory: NC in place XRAY/CT Studies: CT FACE 09/03/2022: Findings: Incomplete traumatic dental extraction involving tooth numbers 5, 6, 7, 8 and 9 associated with a nondisplaced fracture of the adjacent alveolar ridge. Soft tissue swelling superficial to the right maxilla and right mandibular body, without underlying fracture. LABS Basic Metabolic Panel None ASSESSMENT/PLAN: 86 year old female with fracture of right maxillary alveolar ridge associated with partial subluxation of teeth 5, 6, 7, 8, 9. Occlusal plane is off with stepoff between teeth #8 and #9. Fracture site is mobile. Will discuss with attending role for closed reduction with resin splint fixation of teeth. Recommend dental consult Soft diet Oral hygiene using soft brush and mouth rinsing with Peridex twice a day Will discuss with attending role for closed reduction with resin splint fixation of teeth Remainder per primary team Will arrange follow up in Plastic Surgery Clinic at discharge These findings and recommendations will be discussed with the attending Plastic Surgery Staff On-Call: Riana Hewitt [phone] Elier Camarillo MD Plastic Surgery PGY-6 Service pager [phone] Normal [facility] ED Noteson 09-03-2022 Narrow Gauge Engineer Authentication Interface Message Text /KAYLEIGH READ notified of critical Troponin value of 79. Hard copy of results given to . Normal [facility] ED Provider Noteson 09-03-20 Narrow Gauge Engineer Authentication Interface Message Text HISTORY OF PRESENT ILLNESS ------ 09/03/2022, 8:33 PM. Category: 2 The patient was brought to the ED by [facility]. The history is provided by EMS. Michael Hewitt is a 86 year old female brought to the ED s/p fall from standing earlier today. Per EMS, patient was at the grocery store when she felt dizzy and fell. Patient was transferred here. The patient currently complains of facial pain. Pain has been constant and mild in severity. The patient denies neck pain or injury, back pain or injury, chest pain or injury, abdominal pain, pelvic pain, and any extremity pain or injury. Pre hospital information: patient received 0.5 mg of dilaudid and 4 mg of Zofran prior to transfer. Patient has fractured upper teeth. Patient was on 1 L O2 during transfer. REVIEW OF SYSTEMS Review of Systems Constitutional: Negative for activity change and fever. HENT: Negative for dental problem and nosebleeds. +facial pain Eyes: Negative for pain and visual disturbance. Respiratory: Negative for shortness of breath. Cardiovascular: Negative for chest pain. Gastrointestinal: Negative for abdominal pain. Genitourinary: Negative for flank pain. Musculoskeletal: Negative for back pain and neck pain. Skin: Negative for wound. Neurological: Negative for weakness and headaches. Psychiatric/Behavior al: Negative for confusion. PAST HISTORY ---- Past Medical History: No known past medical history. Past Surgical History: Recent L arm surgery. Social History: Tobacco Use: denies Alcohol Use: denies Drug use: denies Family History: No known past family history. The patient's home medications have been reviewed. Allergies: No known allergies. PHYSICAL EXAM - Primary Survey Airway: Intact Breathing: Bilateral breath sounds Circulation: Palpable bilateral radial, Palpable bilateral DP, and Palpable bilateral PT Spine precautions: WNL Total Glascow Coma Scale: 15 Eyes: eyes open = 4 Verbal: alert and oriented = 5 Motor: obeys commands = 6 Secondary Survey Constitutional: Alert Head: Atraumatic. No cephalohematoma. Midface is stable. Chronic skin changes over the face. Eyes: PERRL. Pupils are 3 mm to 2 mm bilaterally. EOMI. No conjunctival injection. Superficial abrasion over the R eyebrow. Ears: No hemotympanum. Nose: No nasal deformity. No septal hematoma. Mouth/Throat: Airway intact. No malocclusion. Tenderness to palpation over the R maxilla with ecchymosis. Upper teeth missing. Bleeding controlled. Significant ecchymosis over the entire R chin. Neck: Trachea midline. No cervical midline bony tenderness. No deformities or step-offs of the cervical spine . Cardiovascular: Normal rate. Regular rhythm. Heart sounds normal. Peripheral pulses are 2+ in all extremities. Pulmonary/Chest: Lungs are clear bilaterally. No decreased breath sounds. No external evidence of trauma to the chest. Chest wall is stable. Anterior chest wall tenderness. Rash under L breast. No crepitus. No flail segment. No asymmetric rise. Abdominal: No distension. Soft. Suprapubic tenderness to palpation. Old bruises periumbilically. No external evidence of abdominal trauma. Genitourinary: No evidence of genital injury. Back: There is no midline bony tenderness to palpation of the thoracic or lumbar spines. No deformities or step-offs of the thoracic or lumbar spine. No abrasions or ecchymosis. Stage 1 pressure ulcer over the sacrum. Rectal: No gross blood. Musculoskeletal: Pelvis stable to compression and non tender. RUE: No deformities. Full passive ROM. There is no bony tenderness. LUE: No deformities. Full passive ROM. There is no bony tenderness. RLE: No deformities. Full passive ROM. Tenderness to palpation over the thigh. Abrasion and ecchymosis over the knee. LLE: No deformities. Full passive ROM. Mild tenderness to palpation to the distal femur. Skin: Normal color. No lacerations. Neurological: GCS score is 15. Strength is 5/5 in upper and lower extremities bilaterally. Distal motor and sensation grossly intact in bilateral extremities. Subjective numbness in LUE for 1 week per patient. Alert normally oriented Psychiatric: Normal affect. ED COURSE IN [place] 8:39 PM: Patient is started on 2 L through a nasal canula 8:40 PM. The initial vital signs are: BP: 144/56. HR: 75. SpO2: 93. RR 12. 8:43 PM. BP: 151/60. HR: 68. SpO2: 98. RR 20. 8:47 PM. BP: 137/78. HR: 75. SpO2: 98. RR 20. Consultations: Trauma is at bedside and assisted with evaluation and formulation of plan. SCRIBE ATTESTATION (more content not included)... Normal [facility] ED Triage Noteson 09-03-2022 Narrow Gauge Engineer Authentication Interface Message Text Prehospital Medications: 0.5mg dilaudid 4mg zofran Normal [facility] Narrow Gauge Engineer Authentication Interface Message Text 86F, felt dizzy while at grocery store, fell from standing onto face Normal [facility] ETHANOL, SERUMon 09-03-2022 Ethanol [Mass/Vol] mg/dL Normal None Detected [facility] Comment on above: Performed By: #### A PTT, PT #### [facility] [address] [place] [address], Ethanol [Mass/Vol] mg/dL None Dete cted mg/dL [facility] Interpretation and review of laboratory results Normal [facility] FULL LIPID PROFILEon 022 Cholesterol [Mass/Vol] 163 mg/dL Normal <200 [facility] Comment on above: Performed By: #### A PTT, PT #### [facility] [address] [place] [address], Cholesterol in LDL [Mass/Vol] 109 mg/dL Normal <111 [facility] Comment on above: Performed By: #### A PTT, PT #### [facility] [address] [place] [address], Cholesterol.total/Chol esterol in HDL [Mass ratio] 3.70 {ratio} Normal <5.00 [facility] Comment on above: Performed By: #### A PTT, PT #### [facility] [address] [place] [address], HDL CHOL 44 mg/dL Low >54 [facility] Comment on above: Performed By: #### A PTT, PT #### [facility] [address] [place], [place], LDL/HDL 2.48 Normal <3.57 [facility] Comment on above: Performed By: #### A PTT, PT #### [facility] [address], [place], NON-HDL CHOLESTEROL 119 mg/dL Normal <130 [facility] Comment on above: Performed By: #### A PTT, PT #### [facility] [address], [place], Triglyceride [Mass/Vol] 78 mg/dL Normal <151 [facility] Comment on above: Performed By: #### A PTT, PT #### [facility] [address], [place], H AND Mandeep 09-03-2022 Narrow Gauge Engineer Authentication Interface Message Text Attestation signed by Nathan Gonzalez MD at 09/04/2022 4:35 AM Teaching Physician Note: I saw and evaluated the patient. I personally obtained the haskins and critical portions of the history and physical exam. I reviewed the resident's documentation and discussed the patient with the resident. I agree with the resident's medical decision making as documented in the resident's note. Nathan Gonzalez MD Division of Trauma, Critical Care, [place], and Emergency General Surgery Department of Surgery [facility] DIVISION OF ACUTE CARE SURGERY TRAUMA SURGERY HISTORY AND PHYSICAL Michael Hewitt [id number] 09/03/22 BASIC INJURY INFORMATION: Level of activation: Category 2 Trauma Mode of transport: Ambulance: EMS Mechanism of injury: Fall from ground level Complicating features: Not applicable Protective measures: Not applicable Date of Injury: 09/03/2022 Time of Injury: Today Patient origin: Transfer from outside facility HISTORY OF PRESENT INJURY: Michael Hewitt is a 86 year old female brought in by EMS from [facility] following a fall with traumatic injuries. Patient was at the grocery store today and became dizzy and subsequently fell onto the ground from a standing position. She hit the right side of her face but denies loss of consciousness. No blood thinners. She had imaging that showed incomplete dental extraction of multiple teeth and partial alveolar ridge fracture. Tetanus updated prior to arrival. She was treated with 0.5mg IV Dilaudid and 4mg IV Zofran by the previous team prior to transfer and had a desaturation event en route to about 86% but improved with 1L NC. Of note patient had a recent procedure on her left upper extremity and has limited range of motion and numbness of the arm that has been present since her surgery 1 week ago. Loss of consciousness: No Initial interventions (prior to ED disposition): None (Select all that apply.) Hemodynamic status witnessed in ED: New O2 requirements or new onset hypoxia and None applicable (Select all that apply.) PRIMARY SURVEY: Airway: Intact Breathing: Normal Breath Sounds: Breath sounds equal bilaterally. Circulation: Pulses: Normal Skin: Normal skin color, texture, and turgor. No rashes or lesions., Warm, and Dry Disability: Pupils: PERRL GCS: Best Eyes: 4 Best Verbal: 5 Best Motor: 6 Total: 15 SECONDARY SURVEY: Neurologic: Alert and oriented, appropriate, moves all extremities. HEENT: Head: Superficial injury, described as: abrasion to the right forehead superior to the eyebrow with tenderness to palpation. and Tender to palpation of the upper dental ridge and right maxilla. Ecchymosis to the chin. Dried blood and fresh blood in the mouth with several old missing teeth. No obvious dental socket swelling. Eyes: PERRLA, conjunctiva/corneas without lesions. and EOM intact, corrective lenses removed. Ears: No hemotympanum Nose: No bloody drainage. Throat: Additional findings: as above Neck: No midline tenderness, lacerations, or wounds Chest: Tender when palpating bilateral anterior and lateral chest wall without crepitus or ecchymosis. Pulmonary: Breath sounds clear, symmetrical; no wheezes, rales, or consolidation Cardiovascular: Pulses: Radial: R: normal/ L: normal and DP/PT: R: normal/ L: normal Abdomen: Non-distended; non-tender to palpation; no scars, lacerations, or contusions Rectal: Not performed. Pelvis/Perineum: Normal appearing genitalia, Pelvis is stable to palpation, and Additional findings: stage 1 sacral decubitus ulcer Musculoskeletal: Back/Spine: Thoracolumbar spinal column non-tender and No step-off or deformity noted Extremities: Additional findings: ROM normal. Tender to palpation of the bilateral thighs. Abrasion to the left knee. Adjunct Studies: CXR performed in bay Check all that apply: None PAST MEDICAL HISTORY: Hypertension (HTN) and Diabetes mellitus (DM) PAST SURGICAL HISTORY: Left humerus fracture repair PRE-ADMISSION MEDICATIONS: Amlodipine Doxycycline Furosemide Levemir Losartan Metoprolol succinate Potassium Chloride Sodium Bicarbonate tablets Anti-platelet use: No Anti-coagulant use: No ALLERGIES: Not on File SOCIAL HISTORY: Social History Socioeconomic History Marital status: Single Living status: Home Primary language: Angolan Functional status: Independent Impairments: None Assistive Devices Used: None FAMILY HISTORY: No family history on file. REVIEW OF SYSTEMS: Skin: negative and bruising Eyes: negative review of symptoms Ears/Nose/Throat: negative and dental problem Respiratory: negative symptoms (no cough, hemoptysis, SOB, WILKES, PND, wheezing) Cardiovascular: negative symptoms (No CP/Pressure/ (more content not included)... Normal [facility] HEMOGLOBIN A1Con 09-03-2022 Glucose [Mass/Vol] 166 mg/dL Normal [facility] Comment on above: Performed By: #### C BCDSAT ####[facility] [id number] [place], [address]#### HB A1C ####[facility] [address] [place], [address] HbA1c (Bld) [Mass fraction] 7.4 % High 4.0-5.6 [facility] Comment on above: Performed By: #### C BCDSAT ####[facility] [id number] [place], [address]#### HB A1C ####[facility] [address] [place], [address] HIGH SENSITIVITY TROPONIN Io n 09-03-2022 HS TROPONIN I 79 ng/L Critically high <=15 [facility] Comment on above: Order Comment: High Sensitivity Cardiac Troponin I (hsTnI) assay has replaced the conventional troponin assay at [facility].All results are reported in whole numbers representing ng/L.Repeat test times for ruling out acute coronary syndrome (ACS) are every 2 hours instead of every 6-8 hours.[id number] conventional troponin (I-stat) will remain available in the Main [place] ED ??? results obtained by different labs or methods are not comparable.Elevated troponin can result from acute myocardial infarction (coronary etiology) or myocardial injury (non-coronary etiology) ??? always consider both.For ruling out acute coronary syndrome (ACS), lab values are always used in conjunction with clinical risk assessment (e.g., HEART score).Interpreting initial value in ruling out ACSLess than 5 ng/L ??? below lower limit of quantification ??? essentially rules out ACS if chest pain began more than 3 hours prior to test and assessed risk is low5 - 49 ng/L ??? indeterminate ??? consider repeat value in 2 hours depending on risk [id number] ng/L or greater??? concern for ACS or myocardial injuryInterpreting repeated values in ruling out ACS.Always compare to initial value obtained:Increase of less than 5 ng/L ??? essentially rules out ACS if chest pain began more than 3 hours prior to initial test and assessed risk is lowIncrease of 5 - 19 ng/L ??? indeterminate ??? consider another repeat value in 2 hours depending on risk assessmentIncrease of 20 ng/L or greater ??? Concern for ACS or myocardial injuryAny absolute value of 50 ng/L or greater ??? concern for ACS or myocardial injuryIntermediate hsTnI values DO NOT mandate admission to a cardiology or telemetry unit. They need to be interpreted within the clinical context using provider judgement.When using hsTnI to calculate the HEART score, use the 99 % Upper Reference Limit of 15 ng/L as the normal limit (i.e. <=15 ng/L = 0 points, 16-45 ng/L = 1 points, >45 ng/L = 2 points). Performed By: #### A PTT, PT #### [facility] [address] [place] [address], HIGH SENSITIVITY TROPONIN IO rdered By: Varsha Waite on 09-03-2022 Troponin I.cardiac DL <= 0.01 ng/mL [Mass/Vol] 79 ng/L Critically high NINF - 15 ng/L [facility] HIV 1 and 2 Ab and HIV 1 p24 Ag panel IAon 09-03-2022 HIV 1+2 Ab+HIV1 p24 Ag IA Ql Non-Reactive Nonreactive [facility] Interpretation and review of laboratory results Normal [facility] The specimen was non-reactive for HIV-1 and HIV-2 antibodies, and p24 antigen. Based on this non-reactive screen result, further reflexive testing was not indicated and was, therefore, not performed. Note: The performance of this assay has not been clinically validated in patients less than 2 years old. [facility] HIV1 HIV2 AGAB SCRNon 2021 HIV 1/2 AG/AB Non-Reactive Normal Nonreactive [facility] Comment on above: Order Comment: The s pecimen was non-reactive for HIV-1 and HIV-2 antibodies, and p24 antigen. Based on this non-reactive screen result, further reflexive testing was not indicated and was, therefore, not performed.Note: The performance of this assay has not been clinically validated in patients less than 2 years old. Performed By: #### A PTT, PT #### [facility] [address] [place] [address], LACTIC ACIDon 09-03-2022 CR LACT 1.2 mmol/L Normal 0.5-2.0 [facility] Comment on above: Performed By: #### A PTT, PT #### [facility] [address] [place] [address], LACTIC ACIDOrdered By: Leonela Gurrola on 09-03-2022 Interpretation and review of laboratory results Normal [facility] Lactate [Moles/Vol] 1.2 mmol/L 0.5 - 2. 0 mmol/L [facility] - Blood bankon ABO and Rh group Nom (Bld) Blood group A Rh(D) positive [facility] No Panel Informationon 09-03 [facility] Interpretation and review of laboratory results Normal [facility] Radiology Study observation (narrative) [facility] Radiology Study observation (narrative) [facility] PARTIAL THROMBOPLASTIN TIMEo n 09-03-2022 aPTT Coag (Bld) [Time] 30 s Normal 25-37 Th e [facility] Comment on above: Performed By: #### A PTT, PT #### [facility] [address] [place], [address] aPTT Coag (Bld) [Time] 30 s [facility] PROF CHEM 8 (BAS METB)on Anion gap [Moles/Vol] 13.2 mmol/L Normal Th e [facility] Comment on above: Performed By: #### H LYNNE, BMP #### [facility] [address] [place] [address] Dr. Adan Rinaldi Calcium [Mass/Vol] 9.1 mg/dL Normal 8.5-10.1 [facility] Comment on above: Performed By: #### Igor BATISTA, BMP #### [facility] [address] [place] [address] Dr. Adan Rinaldi Chloride [Moles/Vol] 99 mmol/L Normal 98-107 [facility] Comment on above: Performed By: #### Igor BATISTA, BMP #### [facility] [address] [address] [address] Adan Rinaldi CO2 [Moles/Vol] 26.9 mmol/L Normal 21.0-32.0 [facility] Comment on above: Performed By: #### H LYNNE, BMP #### [facility] [address] [address] [address] Adan Rinaldi Creatinine [Mass/Vol] 1.50 mg/dL Critically high 0.55-1.02 [facility] Comment on above: Performed By: #### Igor BATISTA, BMP #### [facility] [address] [address] [address] Adan Rinaldi EGFR-AF MARSHALLESE 40 mL/min/1.73m2 Critically low >=60 [facility] Comment on above: Performed By: #### H LYNNE, BMP #### [facility] [address] [place] [address] Dr. Adan Rinaldi EGFR-NON AF MARSHALLESE 33 mL/min/1.73m2 Critically low >=60 [facility] Comment on above: Performed By: #### H LYNNE, BMP #### [facility] Laboratory [address] [address] [address] Adan Rinaldi Glucose [Mass/Vol] 213 mg/dL Critically high 74-106 [facility] Comment on above: Performed By: #### H LYNNE, BMP #### [facility] [address] [place] [address] Dr. Adan Rinaldi Potassium [Moles/Vol] 4.1 mmol/L Normal 3.5-5.1 [facility] Comment on above: Performed By: #### H LYNNE, BMP #### [facility] [address] [address] [address] Adan Rinaldi Sodium [Moles/Vol] 135 mmol/L Critically low 136-145 [facility] Comment on above: Performed By: #### H LYNNE, BMP #### [facility] [address] [place] [address] Dr. Adan Rinaldi Urea nitrogen [Mass/Vol] 38.0 mg/dL Critically high 7.0-18.0 [facility] Comment on above: Performed By: #### H LYNNE, BMP #### [facility] [address] [place] [address] Dr. Adan Rinaldi Urea nitrogen/Creatinine [Mass ratio] 25.3 mg/mg Normal [facility] Comment on above: Performed By: #### H LYNNE, BMP #### [facility] [address] [place] [address] Dr. Adan Rinaldi PROTHROMBIN TIME AND INRon 11-04-2021 INR Coag (PPP) [Relative time] 1.06 {INR} Normal 0.90-1.10 [facility] Comment on above: Performed By: #### A PTT, PT #### S PATH[facility] LABORATORY [address], [place], PT Coag (PPP) [Time] 12.0 s Normal 9.7-12.9 [facility] Comment on above: Performed By: #### A PTT, PT #### [facility] [address], [place], INR Coag (PPP) [Relative time] 1.06 {INR} 0.90 - 1.10 [facility] PT Coag (PPP) [Time] 12.0 s [facility] Progress Noteson 09-03-2022 Narrow Gauge Engineer Authentication Interface Message Text Pt a 86 yo F, CAT 2 trauma, presenting via [facility] s/p fall forward vs her face with aveolar ridge fx and traumatic teeth extraction. Pt was at the grocery store and was dizzy at the time of the fall. Presenting to the ED is son Alek Hewitt ([phone]). SW providing emotional support and reuniting son with pt bedside. MARY ALICE Barrett, MSSA Normal [facility] TROPONIN, HIGH SENSITIVITYon 09-03-2022 HSTROP 45.9 pg/mL Normal 4.0-51.3 [facility] Comment on above: Result Comment: CUT- OFF POINTS HAVE BEEN ESTABLISHED BASED ON THE FOURTH UNIVERSAL DEFINITIONS OF MYOCARDIAL INFARCTION. THE UPPER REFERENCE LIMIT (URL) OF TROPONIN, DEFINED THE 99TH PERCENTILE OF cTnI DISTRIBUTION IN A REFERENCE POPULATION, HAS BEEN CONFIRMED THE DECISION THRESHOLD FOR ME DIAGNOSIS. Performed By: #### H STROPN, BMP #### [facility] [address], [place] [address] Dr. Adan Rinaldi TYPE AND SCREENon 09-03-2022 ABO and Rh group Nom (Bld) Blood group A Rh(D) positive Normal [facility] Comment on above: Performed By: #### A PTT, PT #### [facility] [address], [place], ABO and Rh group Nom (Bld) No Previous Results Normal [facility] Comment on above: Performed By: #### A PTT, PT #### [facility] [address], [place], ABSC INT Negative Normal [facility] Comment on above: Performed By: #### A PTT, PT #### [facility] [address], [place], ABO and Rh group Nom (Bld) No Previous Results [facility] Blood group antibody screen Ql Negative [facility] Troponin I.cardiac DL <= 0.0 1 ng/mL [Mass/Vol]Ordered By: Varsha Waite on 09-03-2022 Interpretation and review of laboratory results Abnormal [facility] High Sensitivity Cardiac Troponin I (hsTnI) assay has replaced the conventional troponin assay at [facility]. All results are reported in whole numbers representing ng/L. Repeat test times for ruling out acute coronary syndrome (ACS) are every 2 hours instead of every 6-8 hours. Yfdnu-ty-whsz conventional troponin (I-stat) will remain available in the [facility] ED results obtained by different labs or methods are not comparable. Elevated troponin can result from acute myocardial infarction (coronary etiology) or myocardial injury (non-coronary etiology) always consider both. For ruling out acute coronary syndrome (ACS), lab values are always used in conjunction with clinical risk assessment (e.g., HEART score). Interpreting initial value in ruling out ACS Less than 5 ng/L below lower limit of quantification essentially rules out ACS if chest pain began more than 3 hours prior to test and assessed risk is low 5 - 49 ng/L indeterminate consider repeat value in 2 hours depending on risk assessment 50 ng/L or greater concern for ACS or myocardial injury Interpreting repeated values in ruling out ACS. Always compare to initial value obtained: Increase of less than 5 ng/L essentially rules out ACS if chest pain began more than 3 hours prior to initial test and assessed risk is low Increase of 5 - 19 ng/L indeterminate consider another repeat value in 2 hours depending on risk assessment Increase of 20 ng/L or greater Concern for ACS or myocardial injury Any absolute value of 50 ng/L or greater concern for ACS or myocardial injury Intermediate hsTnI values DO NOT mandate admission to a cardiology or telemetry unit. They need to be interpreted within the clinical context using provider judgement. When using hsTnI to calculate the HEART score, use the 99 % Upper Reference Limit of 15 ng/L as the normal limit (i.e. <=15 ng/L = 0 points, 16-45 ng/L = 1 points, >45 ng/L = 2 points). [employer] XR CHEST 1 VIEW AP OR PAon 1 11-04-2021 XR CHEST 1 VIEW AP OR PA EXAMINATION: XR CHEST 1 VIEW AP OR PA 09/03/2022 08:58 PM CLINICAL HISTORY: Reason for Exam: Fall, Desat COMPARISON: None FINDINGS: Lines, tubes, and devices: EKG leads overlie the chest and abdomen. Lungs and pleura: No focal pulmonary consolidation, effusion or pneumothorax. Metallic snaps overlie the chest and abdomen. Cardiomediastinal silhouette: Enlarged cardiopericardial silhouette. Calcifications within the aortic arch. Median sternotomy wires. Aortic valve prosthesis. Musculoskeletal: Partially imaged plate and screw fixation of the left humerus fracture. IMPRESSION: No acute cardiopulmonary abnormality identified. MACRO: None Normal [facility] XR Chest Single viewon 09-03 EXAMINATION: XR CHEST 1 VIEW AP OR PA 09/03/2022 08:58 PM CLINICAL HISTORY: Reason for Exam: Fall, Desat COMPARISON: None FINDINGS: Lines, tubes, and devices: EKG leads overlie the chest and abdomen. Lungs and pleura: No focal pulmonary consolidation, effusion or pneumothorax. Metallic snaps overlie the chest and abdomen. Cardiomediastinal silhouette: Enlarged cardiopericardial silhouette. Calcifications within the aortic arch. Median sternotomy wires. Aortic valve prosthesis. Musculoskeletal: Partially imaged plate and screw fixation of the left humerus fracture. IMPRESSION: No acute cardiopulmonary abnormality identified. MACRO: None RADIOLOGY Bala Person MD - 09/03/2022 EXAMINATION: XR CHEST 1 VIEW AP OR PA 09/03/2022 08:58 PM CLINICAL HISTORY: Reason for Exam: Fall, Desat COMPARISON: None FINDINGS: Lines, tubes, and devices: EKG leads overlie the chest and abdomen. Lungs and pleura: No focal pulmonary consolidation, effusion or pneumothorax. Metallic snaps overlie the chest and abdomen. Cardiomediastinal silhouette: Enlarged cardiopericardial silhouette. Calcifications within the aortic arch. Median sternotomy wires. Aortic valve prosthesis. Musculoskeletal: Partially imaged plate and screw fixation of the left humerus fracture. IMPRESSION: No acute cardiopulmonary abnormality identified. MACRO: None [facility] Radiology Study observation (narrative) [facility] XR Chest Single viewOrdered By: Bala Person on 09-03-2022 [facility] Work Phone: XR Femur - right 2 Viewson 1 11-04-2021 EXAMINATION: XR RT FEMUR MIN 2 VIEWSPRO/RT 09/03/2022 09:39 PM CLINICAL HISTORY: Reason for Exam: trauma, ttp COMPARISON: None FINDINGS: No acute fracture is identified. There is no radiopaque foreign body. Uzsw-jz-qdnhpgiq hip osteoarthritis. Tricompartmental knee osteoarthritis. Atherosclerotic vascular calcifications. IMPRESSION: No acute right femur fracture. Right femur MACRO: None RADIOLOGY Bala Person MD - 09/04/2022 EXAMINATION: XR RT FEMUR MIN 2 VIEWSPRO/RT 09/03/2022 09:39 PM CLINICAL HISTORY: Reason for Exam: trauma, ttp COMPARISON: None FINDINGS: No acute fracture is identified. There is no radiopaque foreign body. Xhap-kc-njzvuaei hip osteoarthritis. Tricompartmental knee osteoarthritis. Atherosclerotic vascular calcifications. IMPRESSION: No acute right femur fracture. Right femur MACRO: None [facility] XR HIPS LINDSEY 5V W PELVISon XR HIPS LINDSEY 5V W PELVIS EXAM: XR HIPS LINDSEY 5V W PELVIS HISTORY: The patient is an 86-year-old female. History of fall COMPARISON: None. FINDINGS: No displaced fractures or cortical discontinuities are seen within either proximal femur or elsewhere throughout the bony pelvis. The widths and alignment of both hip joints are maintained. The sacroiliac joints are maintained. The pubic symphysis is maintained. Incidentally noted is heavy mural calcification of the femoral arteries bilaterally. IMPRESSION: No displaced fractures seen. Electronically authenticated by: BLAS MASON Date: 2022-09-03 16:41 Normal [facility] PROF CHEM 8 (BAS METB)on Anion gap [Moles/Vol] 11.0 mmol/L Normal [facility] Comment on above: Performed By: #### C BC #### [facility] [address] [place] [address] Dr. Adan Rinaldi Calcium [Mass/Vol] 8.8 mg/dL Normal 8.5-10.1 [facility] Comment on above: Performed By: #### C BC #### [facility] [address] [address] [address] Adan Rinaldi Chloride [Moles/Vol] 103 mmol/L Normal 98-107 [facility] Comment on above: Performed By: #### C BC #### [facility] [address] [address] [address] Adan Rinaldi CO2 [Moles/Vol] 29.1 mmol/L Normal 21.0-32.0 [facility] Comment on above: Performed By: #### C BC #### [facility] [address] [place] [address] Dr. Adan Rinaldi Creatinine [Mass/Vol] 1.27 mg/dL Critically high 0.55-1.02 [facility] Comment on above: Performed By: #### C BC #### [facility] [address] [address] [address] Adan Rinaldi EGFR-AF MARSHALLESE 48 mL/min/1.73m2 Critically low >=60 [facility] Comment on above: Performed By: #### C BC #### [facility] [address] [place] [address] Dr. Adan Rinaldi EGFR-NON AF MARSHALLESE 40 mL/min/1.73m2 Critically low >=60 [facility] Comment on above: Performed By: #### C BC #### [facility] [address] [address] [address] Adan Rinaldi Glucose [Mass/Vol] 78 mg/dL Normal 74-106 [facility] Comment on above: Performed By: #### C BC #### [facility] [address] [address] [address] Adan Rinaldi Potassium [Moles/Vol] 4.1 mmol/L Normal 3.5-5.1 [facility] Comment on above: Performed By: #### C BC #### [facility] [address] [address] [address] Adan Rinaldi Sodium [Moles/Vol] 139 mmol/L Normal 136-145 [facility] Comment on above: Performed By: #### C BC #### [facility] [address] [place] [address] Dr. Adan Rinaldi Urea nitrogen [Mass/Vol] 36.0 mg/dL Critically high 7.0-18.0 [facility] Comment on above: Performed By: #### C BC #### [facility] [address] [place] [address] Dr. Adan Rinaldi Urea nitrogen/Creatinine [Mass ratio] 28.3 mg/mg Normal [facility] Comment on above: Performed By: #### C BC #### [facility] [address] [place] [address] Dr. Adan Rinaldi PROF CHEM 8 (BAS METB)on Anion gap [Moles/Vol] 10.4 mmol/L Normal [facility] Comment on above: Performed By: #### C BC #### [facility] [address] [place] [address] Dr. Adan Rinaldi Calcium [Mass/Vol] 8.8 mg/dL Normal 8.5-10.1 [facility] Comment on above: Performed By: #### C BC #### [facility] [address] [place] [address] Dr. Adan Rinaldi Chloride [Moles/Vol] 104 mmol/L Normal 98-107 [facility] Comment on above: Performed By: #### C BC #### [facility] [address] [place] [address] Dr. Adan Rinaldi CO2 [Moles/Vol] 26.9 mmol/L Normal 21.0-32.0 [facility] Comment on above: Performed By: #### C BC #### [facility] [address] [place] [address] Dr. Adan Rinaldi Creatinine [Mass/Vol] 1.13 mg/dL Critically high 0.55-1.02 [facility] Comment on above: Performed By: #### C BC #### [facility] [address] [place] [address] Dr. Adan Rinaldi EGFR-AF MARSHALLESE 55 mL/min/1.73m2 Critically low >=60 [facility] Comment on above: Performed By: #### C BC #### [facility] [address] [address] [address] Adan Rinaldi EGFR-NON AF MARSHALLESE 46 mL/min/1.73m2 Critically low >=60 [facility] Comment on above: Performed By: #### C BC #### [facility] [address] [address] [address] Adan Rinaldi Glucose [Mass/Vol] 164 mg/dL Critically high 74-106 [facility] Comment on above: Performed By: #### C BC #### [facility] [address] [address] [address] Adan Rinaldi Potassium [Moles/Vol] 4.3 mmol/L Normal 3.5-5.1 [facility] Comment on above: Performed By: #### C BC #### [facility] [address] [address] [address] Adan Rinaldi Sodium [Moles/Vol] 137 mmol/L Normal 136-145 [facility] Comment on above: Performed By: #### C BC #### [facility] [address] [address] [address] Adan Rinaldi Urea nitrogen [Mass/Vol] 29.0 mg/dL Critically high 7.0-18.0 [facility] Comment on above: Performed By: #### C BC #### [facility] [address] [id number] Adan Rinaldi Urea nitrogen/Creatinine [Mass ratio] 25.7 mg/mg Normal [facility] Comment on above: Performed By: #### C BC #### [facility] [id number] Adan Rinaldi [facility] 05-28-2022 [facility] Department of Radiology [address] [place] [id number] Patient Name: ELIZ HEWITT : 1935 Sex: F Age: Race: White Pt. Location: Patient Status: O Ordered Date: 05/28/2022 10:05:00 AM Completed Date: 05/28/2022 10:11 AM Requesting Provider: RAAD PEREZ Attending Provider: RAAD PEREZ Report Copy To: Signs & Symptoms: S42.302A Unsp fracture of shaft of humerus, left arm, init I10 History: [place] Comments: Evaluate Exam: HUMERUS LEFT HUMERUS LEFT 05/28/2022 10:11 AM CLINICAL INDICATIONS: S42.302A Unsp fracture of shaft of humerus, left arm, init I10 TECHNOLOGIST COMMENTS: Ortho follow up left humerus. Injury to left humerus over 1 year ago. Recent surgery to left humerus. QUESTION FOR THE RADIOLOGIST: Evaluate PROTOCOL: AP(PA) and Lateral views were obtained. COMPARISON: 05/21/2022 Impression: 1. Extensive surgical hardware and fracture involving the left humerus is stable. Alignment is stable. Electronically signed: Henrry Mast. Transcribed by: [email or web address], User Resident: Electronically Signed by: HENRRY MAST @ 05/28/2022 10:[address] [facility] Comment on above: Order Comment: Evalu ate WOUND CULTUREon 05-23-2022 Bacteria identified Aer cx Nom (Unsp spec) Final report Normal [facility] Comment on above: Performed By: #### C XWND #### [facility] [address] [place] [address] Dr. Adan Rinaldi Result 1 Comment Normal [facility] Comment on above: Result Comment: No g rowth in 36 - 48 hours. Performed By: #### C XWND #### [facility] [address] [address] [address] Adan Rinaldi HUMERUS LEFTon 05-21-[address] [facility] Department of Radiology [address] [place] [address] Patient Name: ELIZ HEWITT : 1935 Sex: F Age: Race: White Pt. Location: Patient Status: Ordered Date: 05/21/2022 10:30:00 AM Completed Date: 05/21/2022 11:07 AM Requesting Provider: RAAD PEREZ Attending Provider: Report Copy To: Signs & Symptoms: S42.302A Unsp fracture of shaft of humerus, left arm, init I10 History: Annika Comments: Evaluate Exam: HUMERUS LEFT HUMERUS LEFT 05/21/2022 11:07 AM CLINICAL INDICATIONS: S42.302A Unsp fracture of shaft of humerus, left arm, init I10 TECHNOLOGIST COMMENTS: left humerus surgery - 5 days ago f/u QUESTION FOR THE RADIOLOGIST: Evaluate PROTOCOL: AP(PA) and Lateral views were obtained. COMPARISON: May 15, 2022 FINDINGS: Postoperative changes, Compression plate and screws transfixing the proximal left humerus in good alignment. Inferior subluxation of the left humeral head possibly due to a large joint effusion. Soft tissue swelling in the left arm. IMPRESSION: 1. Compression plate and screws transfixing the proximal left humerus in good alignment. 2. Inferior subluxation of the left humeral head possibly due to a large joint effusion. Electronically signed: DAMON BOYLE. Transcribed by: [email or web address], User Resident: Electronically Signed by: DAMON BOYLE @ 05/21/2022 03:[address] [facility] Comment on above: Order Comment: No: D o not add to previous draw CBC AUTO DIFFon 05-20-2022 BASO # 0.1 103/ul Normal 0.0-0.1 [facility] Comment on above: Performed By: #### C VDTBH #### [facility] [address] [place] [address] Dr. Adan Rinaldi Basophils/100 WBC (Bld) 0.8 % Normal 0.2-2.0 [facility] Comment on above: Performed By: #### C VDTBH #### [facility] [address] [place] [address] Dr. Adan Rinaldi EO # 0.2 103/ul Normal 0.0-0.7 [facility] Comment on above: Performed By: #### C VDTBH #### [facility] [address] [place] [address] Dr. Adan Rinaldi Eosinophils/100 WBC (Bld) 2.0 % Normal 0.9-7.0 [facility] Comment on above: Performed By: #### C VDTBH #### [facility] [address] [place] [address] Dr. Adan Rinaldi Erythrocyte distribution width (RBC) [Ratio] 14.4 % Normal 11.0-15.0 [facility] Comment on above: Performed By: #### C VDTBH #### [facility] [address] [place] [address] Dr. Adan Rinaldi Hematocrit (Bld) [Volume fraction] 23.1 % Critically low 36.0-48.0 [facility] Comment on above: Performed By: #### C VDTBH #### [facility] [address] [place] [address] Dr. Adan Rinaldi Hemoglobin (Bld) [Mass/Vol] 7.4 g/dL Critically low 12.0-16.0 [facility] Comment on above: Performed By: #### C VDTBH #### [facility] [address] [place] [address] Dr. Adan Rinaldi IG # 0.04 10e3/ul Critically high 0.00-0.03 [facility] Comment on above: Performed By: #### C VDTBH #### [facility] [address] [place] [address] Dr. Adan Rinaldi IG % 0.5 % Normal 0.0-0.5 [facility] Comment on above: Performed By: #### C VDTBH #### [facility] [address] [place] [address] Dr. Adan Rinaldi LYMPH # 1.1 103/ul Critically low 1.2-3.8 [facility] Comment on above: Performed By: #### C VDTBH #### [facility] [address] [place] [address] Dr. Adan Rinaldi Lymphocytes/100 WBC (Bld) 12.0 % Critically low 20.5-60.0 [facility] Comment on above: Performed By: #### C VDTBH #### [facility] [address] [place] [address] Dr. Adan Rinaldi MANUAL DIFF REQ NO Normal [facility] Comment on above: Performed By: #### C VDTBH #### [facility] [address] [place] [address] Dr. Adan Rinaldi MCH (RBC) [Entitic mass] 28.7 pg Normal 26.7-34.0 [facility] Comment on above: Performed By: #### C VDTBH #### [facility] [address] [place] [address] Dr. Adan Rinaldi MCHC (RBC) [Mass/Vol] 32.0 g/dL Normal 29.9-35.2 [facility] Comment on above: Performed By: #### C VDTBH #### [facility] [address] [place] [address] Dr. Adan Rinaldi MCV (RBC) [Entitic vol] 89.5 fL Normal 81.0-99.0 [facility] Comment on above: Performed By: #### C VDTBH #### [facility] [address] [place] [address] Dr. Adan Rinaldi MONO # 1.0 103/ul Critically high 0.3-0.8 [facility] Comment on above: Performed By: #### C VDTBH #### [facility] [address] [place] [address] Dr. Adan Rinaldi Monocytes/100 WBC (Bld) 11.6 % Normal 1.7-12.0 [facility] Comment on above: Performed By: #### C VDTBH #### [facility] [address] [place] [address] Dr. Adan Rinaldi NEUT # 6.5 103/ul Normal 1.4-6.5 [facility] Comment on above: Performed By: #### C VDTBH #### [facility] [address] [place] [address] Dr. Adan Rinaldi Neutrophils/100 WBC (Bld) 73.1 % Normal 43.0-75.0 [facility] Comment on above: Performed By: #### C VDTBH #### [facility] [address] [place] [address] Dr. Adan Rinaldi Platelet mean volume (Bld) [Entitic vol] 9.7 fL Normal 9.5-13.5 [facility] Comment on above: Performed By: #### C VDTBH #### [facility] [address] [place] [address] Dr. Adan Rinaldi PLT 298 103/ul Normal 150-450 [facility] Comment on above: Performed By: #### C VDTBH #### [facility] [address] [place] [address] Dr. Adan Rinaldi RBC 2.58 106/ul Critically low 4.20-5.40 [facility] Comment on above: Performed By: #### C VDTBH #### [facility] [address] [place] [address] Dr. Adan Rinaldi WBC 8.9 103/ul Normal 4.0-11.0 [facility] Comment on above: Performed By: #### C VDTBH #### [facility] [address] [place] [address] Dr. Adan Rinaldi CULTURE BLOODon 05-20-2022 Microscopic examination of blood, culture Culture Observations: NO GROWTH AT 5 DAYS. Normal [facility] Comment on above: Performed By: #### B LDCX2 #### [facility] [address] [place] [address] Dr. Adan Rinaldi Microscopic examination of blood, culture Culture Observations: NO GROWTH AT 5 DAYS. Normal [facility] Comment on above: Performed By: #### P OCGLUC #### [facility] [address] [place] [address] Dr. Adan Rinaldi Covid-19 PCR ([facility])on 04-22 SARS-CoV-2 (COVID-19) RNA BLU+probe Ql (Unsp spec) Not detected Normal NOT DETECTED [facility] Comment on above: Result Comment: When diagnostic testing is negative, the possibility of a false negative should be considered in the context of a patient's recent exposures and the presence of clinical signs and symptoms consistent with SARS-CoV-2. This test is not yet approved or cleared by the [place] FDA. When there are no FDA-approved or cleared tests available, and other criteria are met, FDA can make tests available under an emergency access mechanism called an Emergency Use Authorization (EUA). The EUA for this test is supported by the Hydrometeorologist of Health and Human Service's declaration that circumstances exist to justify the emergency use of in vitro diagnostics for the detection and/or diagnosis of the virus that causes COVID-19. This EUA will remain in effect for the duration of the COVID-19 declaration justifying emergency of IVDs, unless it is terminated or revoked by the FDA (after which the test may no longer be used). Performed By: #### C VDTBH #### [facility] [address] [place] [address] Dr. Adan Rinaldi ER URINE PROFILEon 2 Bilirubin Ql (U) Negative Normal NEGATIVE [facility] Comment on above: Performed By: #### H STROPN, BMP #### [facility] [address] [address] [address] Adan Rinaldi Clarity (U) CLEAR Normal CLEAR [facility] Comment on above: Performed By: #### H STROPN, BMP #### [facility] [address] [address] [address] Adan Rinaldi Color (U) LT. YELLOW Normal YELLOW [facility] Comment on above: Performed By: #### H STROPN, BMP #### [facility] [address] [address] [address] Adan Rinaldi ERUAHD A micrscopic examination will be performed if indicated. Normal [facility] Comment on above: Performed By: #### H STROPN, BMP #### [facility] [address] [place] [address] Dr. Adan Rinaldi Glucose Ql (U) Negative Normal NEGATIVE [facility] Comment on above: Performed By: #### H STROPN, BMP #### [facility] [address] [address] [address] Adan Rinaldi Hemoglobin Ql (U) Negative Normal NEGATIVE [facility] Comment on above: Performed By: #### H STROPN, BMP #### [facility] [address] [place] [address] Dr. Adan Rinaldi Ketones Ql (U) Negative Normal NEGATIVE [facility] Comment on above: Performed By: #### H STROPN, BMP #### [facility] [address] [address] [address] Adan Rinaldi LEUKOCYTES Negative Normal NEGATIVE [facility] Comment on above: Performed By: #### H STROPN, BMP #### [facility] [address] [address] [address] Adan Rinaldi Nitrite Ql (U) Negative Normal NEGATIVE [facility] Comment on above: Performed By: #### H STROPN, BMP #### [facility] [address] [address] [address] Adan Rinaldi pH (U) 5.5 [pH] Normal 5-9 [facility] Comment on above: Performed By: #### H STROPN, BMP #### [facility] [address] [place] [address] Dr. Adan Rinaldi SPEC GRAVITY <=1.005 Abnormal 1.005-<=1.025 [facility] Comment on above: Performed By: #### H STROPN, BMP #### [facility] [address] [place] [address] Dr. Adan Rinaldi UA PROTEIN Negative Normal NEGATIVE/ TRACE [facility] Comment on above: Performed By: #### H STROPN, BMP #### [facility] [address] [place] [address] Dr. Adan Rinaldi UR MICRO IND NOT INDICATED Normal [facility] Comment on above: Performed By: #### H STROPN, BMP #### [facility] [address] [place] [address] Dr. Adan Rinaldi Urobilinogen Qn (U) 0.2 {Manny'U}/dL Normal 0.2 - 1. 0 [facility] Comment on above: Performed By: #### H STRORIKY, BMP #### [facility] [address] [place] [address] Dr. Adan Rinaldi LACTATE/LACTIC ACIDon 2021 Lactate [Moles/Vol] 1.5 mmol/L Normal 0.4-1.9 [facility] Comment on above: Performed By: #### C VDTBH #### [facility] [address] [place] [address] Dr. Adan Rinaldi Lactate [Moles/Vol] 2.0 mmol/L Critically high 0.4-1.9 [facility] Comment on above: Performed By: #### C BC #### [facility] [address] [place] [address] Dr. Adan Rinaldi PROF 14(COMP METB)on 022 Albumin [Mass/Vol] 2.7 g/dL Critically low 3.4-5.0 [facility] Comment on above: Performed By: #### H STROPN, BMP #### [facility] [address] [address] [address] Adan Rinaldi Albumin/Globulin [Mass ratio] 0.7 {ratio} Normal [facility] Comment on above: Performed By: #### H JACQUELINEPN, BMP #### [facility] [address] [address] [address] Adan Rinaldi ALP [Catalytic activity/Vol] 85 U/L Normal 46-116 [facility] Comment on above: Performed By: #### H STROPN, BMP #### [facility] [address] [address] [address] Adan Rinaldi ALT [Catalytic activity/Vol] 13 U/L Critically low 14-59 [facility] Comment on above: Performed By: #### H LYNNE, BMP #### [facility] [address] [place] [address] Dr. Adan Rinaldi Anion gap [Moles/Vol] 11.8 mmol/L Normal [facility] Comment on above: Performed By: #### H LYNNE, BMP #### [facility] [address] [place] [address] Dr. Adan Rinaldi AST [Catalytic activity/Vol] 21 U/L Normal 15-37 [facility] Comment on above: Performed By: #### H LYNNE, BMP #### [facility] [address] [place] [address] Dr. Adan Rinaldi Bilirubin [Mass/Vol] 0.7 mg/dL Normal 0.2-1.0 [facility] Comment on above: Performed By: #### H STRORIKY, BMP #### [facility] [address] [place] [address] Dr. Adan Rinaldi Calcium [Mass/Vol] 8.6 mg/dL Normal 8.5-10.1 [facility] Comment on above: Performed By: #### H STROPN, BMP #### [facility] [address] [place] [address] Dr. Adan Rinaldi Chloride [Moles/Vol] 102 mmol/L Normal 98-107 [facility] Comment on above: Performed By: #### H STROPN, BMP #### [facility] [address] [address] [address] Adan Rinaldi CO2 [Moles/Vol] 27.5 mmol/L Normal 21.0-32.0 [facility] Comment on above: Performed By: #### H STROPN, BMP #### [facility] [address] [address] [address] Adan Rinaldi Creatinine [Mass/Vol] 1.59 mg/dL Critically high 0.55-1.02 [facility] Comment on above: Performed By: #### H STROPN, BMP #### [facility] [address] [address] [address] Adan Rinaldi EGFR-AF MARSHALLESE 37 mL/min/1.73m2 Critically low >=60 [facility] Comment on above: Performed By: #### H STROPN, BMP #### [facility] [address] [place] [address] Dr. Adan Rinaldi EGFR-NON AF MARSHALLESE 31 mL/min/1.73m2 Critically low >=60 [facility] Comment on above: Performed By: #### H STROPN, BMP #### [facility] [address] [address] [address] Adan Rinaldi Globulin (S) [Mass/Vol] 4.1 g/dL Normal [facility] Comment on above: Performed By: #### H STROPN, BMP #### [facility] [address] [place] [address] Dr. Adan Rinaldi Glucose [Mass/Vol] 122 mg/dL Critically high 74-106 [facility] Comment on above: Performed By: #### H STROPN, BMP #### [facility] [address] [address] [address] Adan Rinaldi Potassium [Moles/Vol] 4.3 mmol/L Normal 3.5-5.1 [facility] Comment on above: Performed By: #### H STROPN, BMP #### [facility] [address] [address] [address] Adan Rinaldi Protein [Mass/Vol] 6.8 g/dL Normal 6.4-8.2 [facility] Comment on above: Performed By: #### H STROPN, BMP #### [facility] [address] [address] [address] Adan Rinaldi Sodium [Moles/Vol] 137 mmol/L Normal 136-145 [facility] Comment on above: Performed By: #### H STROPN, BMP #### [facility] [address] [place] [address] Dr. Adan Rinaldi Urea nitrogen [Mass/Vol] 62.0 mg/dL Critically high 7.0-18.0 [facility] Comment on above: Performed By: #### H STROPN, BMP #### [facility] [address] [place] [address] Dr. Adan Rinaldi Urea nitrogen/Creatinine [Mass ratio] 39.0 mg/mg Normal [facility] Comment on above: Performed By: #### H STROPN, BMP #### [facility] [address] [place] [address] Dr. Adan Rinaldi PROF CHEM 8 (BAS METB)on Anion gap [Moles/Vol] 14.7 mmol/L Normal [facility] Comment on above: Performed By: #### H STROPN, BMP #### [facility] [address] [place] [address] Dr. Adan Rinaldi Calcium [Mass/Vol] 8.2 mg/dL Critically low 8.5-10.1 [facility] Comment on above: Performed By: #### H STROPN, BMP #### [facility] [address] [place] [address] Dr. Adan Rinaldi Chloride [Moles/Vol] 102 mmol/L Normal 98-107 [facility] Comment on above: Performed By: #### H STROPN, BMP #### [facility] [address] [place] [address] Dr. Adan Rinaldi CO2 [Moles/Vol] 24.0 mmol/L Normal 21.0-32.0 [facility] Comment on above: Performed By: #### H STROPN, BMP #### [facility] [address] [place] [address] Dr. Adan Rinaldi Creatinine [Mass/Vol] 1.74 mg/dL Critically high 0.55-1.02 [facility] Comment on above: Performed By: #### H STROPN, BMP #### [facility] [address] [address] [address] Adan Rinaldi EGFR-AF MARSHALLESE 34 mL/min/1.73m2 Critically low >=60 [facility] Comment on above: Performed By: #### H STROPN, BMP #### [facility] [address] [address] [address] Adan Rinaldi EGFR-NON AF MARSHALLESE 28 mL/min/1.73m2 Critically low >=60 [facility] Comment on above: Performed By: #### H STROPN, BMP #### [facility] [address] [place] [address] Dr. Adan Rinaldi Glucose [Mass/Vol] 160 mg/dL Critically high 74-106 [facility] Comment on above: Performed By: #### H STROPN, BMP #### [facility] [address] [place] [address] Dr. Adan Rinaldi Potassium [Moles/Vol] 3.7 mmol/L Normal 3.5-5.1 [facility] Comment on above: Performed By: #### H STROPN, BMP #### [facility] [address] [place] [address] Dr. Adan Rinaldi Sodium [Moles/Vol] 137 mmol/L Normal 136-145 [facility] Comment on above: Performed By: #### H STROPN, BMP #### [facility] [address] [place] [address] Dr. Adan Rinaldi Urea nitrogen [Mass/Vol] 51.0 mg/dL Critically high 7.0-18.0 [facility] Comment on above: Performed By: #### H STROPN, BMP #### [facility] [address] [place] [address] Dr. Adan Rinaldi Urea nitrogen/Creatinine [Mass ratio] 29.3 mg/mg Normal [facility] Comment on above: Performed By: #### H STROPN, BMP #### [facility] [address] [place], [place] [address] Dr. Adan Rinaldi APTTon 05-16-2022 aPTT Coag (Bld) [Time] 29.9 s Normal 25.0-35.[address] [facility] Comment on above: Order Comment: No: D o not add to previous draw Result Comment: ALL RESULTS MUST BE INTERPRETED WITH RESPECT TO BLOOD DRAWING ARTIFACT OR DILUTION ERROR OF ANTICOAGULANT AT THE TIME OF SAMPLING. THE APTT SHOULD NOT BE USED TO MONITOR UNFRACTIONATED HEPARIN THERAPY, THIS LABORATORY NO LONGER HAS AN ESTABLISHED THERAPEUTIC RANGE BASED ON THE APTT. IT IS RECOMMENDED THAT THE UFH - HEPARIN ASSAY (ANTI-XA ACTIVITY) BE USED FOR THIS PURPOSE. Performed By: #### 9 2097, [id number] #### [facility] [address] BASIC METABOLIC PANELon 04-21 Calcium [Mass/Vol] 8.2 mg/dL Low 8.6-10.3 [facility] Comment on above: Order Comment: No: D o not add to previous draw Performed By: #### 0 0071, 77532 #### [facility] [address] [place] [address], [facility] Chloride [Moles/Vol] 103 mmol/L Normal 98-107 [facility] Comment on above: Order Comment: No: D o not add to previous draw Performed By: #### 0 0071, [id number] #### [facility] [address] [place] [address], [facility] CO2 [Moles/Vol] 22 mmol/L Normal 21-31 [facility] Comment on above: Order Comment: No: D o not add to previous draw Performed By: #### 0 0071, [id number] #### [facility] [address] [place] [address], [facility] Creatinine [Mass/Vol] 1.33 mg/dL High 0.60-1.[address] [facility] Comment on above: Order Comment: No: D o not add to previous draw Performed By: #### 0 0071, [id number] #### [facility] [address] [place] [address], [facility] EGFR 39 ml/min/1.73sq m Abnormal >60 [facility] Comment on above: Order Comment: No: D o not add to previous draw Result Comment: The [facility]'s estimated glomerular filtration rate (eGFR) will no longer include consideration of race in its calculation. The [employer]'s eGFR Task Force developed new recommendations for the estimation of the glomerular filtration rate in the [place] They recommend immediate implementation of the new equation refit without the race variable in all laboratories because the calculation does not include race. In addition to not including race in the calculation and reporting, it included diversity in its development, and has acceptable performance characteristics and potential consequences that do not disproportionately affect any one group of individuals. Performed By: #### 0 0071, [id number] #### [facility] [address] [facility] [place] [address], [facility] Glucose [Mass/Vol] 140 mg/dL High 70-100 [facility] Comment on above: Order Comment: No: D o not add to previous draw Performed By: #### 0 0071, 04950 #### [facility] [address] [place] [address], [facility] Potassium [Moles/Vol] 5.5 mmol/L High 3.5-5.[address] [facility] Comment on above: Order Comment: No: D o not add to previous draw Performed By: #### 0 0071, 20776 #### [facility] [address] [place] [address], [facility] Sodium [Moles/Vol] 133 mmol/L Low 136-145 [facility] Comment on above: Order Comment: No: D o not add to previous draw Performed By: #### 0 0071, [id number] #### [facility] [address] [place] [address], [facility] Urea nitrogen [Mass/Vol] 32 mg/dL High 7-[address] [facility] Comment on above: Order Comment: No: D o not add to previous draw Performed By: #### 0 0071, [id number] #### [facility] [address] [address], [facility] CBC W/DIFFon 05-16-2022 ABS IMM GRANS 0.1 10*3/uL Normal 0.0-0.2 The [facility] Comment on above: Order Comment: No: D o not add to previous draw Performed By: #### 5 0103 #### [facility] [address] [place] [address], [facility] ABS NEUTROPHILS 8.7 10*3/uL High 1.6-7.6 The [facility] Comment on above: Order Comment: No: D o not add to previous draw Performed By: #### 5 0103 #### [facility] [address] [place] [address], [facility] Basophils (Bld) [#/Vol] 0.0 10*3/uL Normal 0.0-0.[address] [facility] Comment on above: Order Comment: No: D o not add to previous draw Performed By: #### 5 0103 #### [facility] [address] [place] [address], [facility] Basophils/100 WBC (Bld) 0.3 % Normal 0.0-1.[address] [facility] Comment on above: Order Comment: No: D o not add to previous draw Performed By: #### 5 0103 #### [facility] [address] [facility] [place] [address], [facility] Eosinophils (Bld) [#/Vol] 0.0 10*3/uL Normal 0.0-0.[address] [facility] Comment on above: Order Comment: No: D o not add to previous draw Performed By: #### 5 0103 #### [facility] [address] [place] [id number], [facility] Eosinophils/100 WBC (Bld) 0.0 % Normal 0.0-6.[address] [facility] Comment on above: Order Comment: No: D o not add to previous draw Performed By: #### 5 0103 #### [facility] [address] [place] [address], [facility] Erythrocyte distribution width (RBC) [Ratio] 14.3 % Normal 11.5-15.[address] [facility] Comment on above: Order Comment: No: D o not add to previous draw Performed By: #### 5 0103 #### [facility] [address] [place] [id number], [facility] Hematocrit (Bld) [Volume fraction] 26.9 % Low 36.0-45.[address] [facility] Comment on above: Order Comment: No: D o not add to previous draw Performed By: #### 5 0103 #### [facility] [address] [place] [id number], [facility] Hemoglobin (Bld) [Mass/Vol] 8.5 g/dL Low 12.0-15.[address] [facility] Comment on above: Order Comment: No: D o not add to previous draw Performed By: #### 5 0103 #### [facility] [address] [place] [address], [facility] IMMATURE GRANS 0.5 % Normal 0.0-1.0 [facility] Comment on above: Order Comment: No: D o not add to previous draw Performed By: #### 5 0103 #### [facility] [address] [place] [id number], [facility] Lymphocytes (Bld) [#/Vol] 1.0 10*3/uL Low 1.2-4.[address] [facility] Comment on above: Order Comment: No: D o not add to previous draw Performed By: #### 5 0103 #### [facility] [address] [place] [id number], [facility] Lymphocytes/100 WBC (Bld) 8.9 % Low 20.0-45.[address] [facility] Comment on above: Order Comment: No: D o not add to previous draw Performed By: #### 5 0103 #### [facility] [address] [place] [address], [facility] MCH (RBC) [Entitic mass] 28.7 pg Normal 27.0-33.[address] [facility] Comment on above: Order Comment: No: D o not add to previous draw Performed By: #### 5 0103 #### [facility] [address] [place] [id number], [facility] MCHC (RBC) [Mass/Vol] 31.6 g/dL Low 32.0-35.[address] [facility] Comment on above: Order Comment: No: D o not add to previous draw Performed By: #### 5 0103 #### [facility] [address] [facility] [address], [facility] MCV (RBC) [Entitic vol] 90.9 fL Normal 82.0-98.[address] [facility] Comment on above: Order Comment: No: D o not add to previous draw Performed By: #### 5 0103 #### [facility] [address] [facility] [place] [address], [facility] Monocytes (Bld) [#/Vol] 0.9 10*3/uL Normal 0.1-1.[address] [facility] Comment on above: Order Comment: No: D o not add to previous draw Performed By: #### 5 0103 #### [facility] [address] [facility] [address], [facility] MONOS 8.7 % Normal 5.0-12.[address] [facility] Comment on above: Order Comment: No: D o not add to previous draw Performed By: #### 5 0103 #### [facility] [address] [place] [id number], [facility] Neutrophils/100 WBC (Bld) 81.6 % High 40.0-72.0 The [facility] Comment on above: Order Comment: No: D o not add to previous draw Performed By: #### 5 0103 #### [facility] [address] [place] [address], [facility] Nucleated RBC/100 WBC (Bld) [Ratio] 0 % Normal 0-[address] [facility] Comment on above: Order Comment: No: D o not add to previous draw Performed By: #### 5 0103 #### [facility] [address] [place] [address], [facility] PLAT CNT 227 10*3/uL Normal 150-[address] [facility] Comment on above: Order Comment: No: D o not add to previous draw Performed By: #### 5 0103 #### [facility] [address] [place] [address], [facility] RBC (Bld) [#/Vol] 2.96 10*6/uL Low 3.80-5.00 The [facility] Comment on above: Order Comment: No: D o not add to previous draw Performed By: #### 5 0103 #### [facility] [address] [place] [address], [facility] WBC (Bld) [#/Vol] 10.63 10*3/uL High 4.00-10.[address] [facility] Comment on above: Order Comment: No: D o not add to previous draw Performed By: #### 5 0103 #### [facility] [address] [facility] [address], [facility] MAGNESIUM BLOODon 05-16-2022 Magnesium [Mass/Vol] 2.0 mg/dL Normal 1.9-2.[address] [facility] Comment on above: Order Comment: No: D o not add to previous draw Performed By: #### 0 0071, [id number] #### [facility] [address] [place] [id number], [facility] POC GLUCOSE LABon 05-16-2022 Glucose [Mass/Vol] 205 mg/dL High 70-100 [facility] Comment on above: Performed By: #### 5 0103 #### [facility] [address] [facility] [facility] Glucose [Mass/Vol] 175 mg/dL High 70-100 [facility] Comment on above: Performed By: #### 5 0103 #### [facility] [address] POTASSIUM BLOODon 05-16-2022 Potassium [Moles/Vol] 4.9 mmol/L Normal 3.5-5.[address] [facility] Comment on above: Order Comment: No: D o not add to previous draw Performed By: #### 4 1406 #### [facility] [address] [facility]. [address] PROTHROMBIN TIMEon INR Coag (PPP) [Relative time] 1.16 {INR} Normal 0.91-1.[address] [facility] Comment on above: Order Comment: No: D o not add to previous draw Result Comment: ACCC P RECOMMENDED INR FOR WARFARIN THERAPY --------- ------- CONDITION INR PROPHYLAXIS OF VENOUS THROMBOSIS 2-3 (HIGH-RISK SURGERY) TREATMENT OF VENOUS THROMBOSIS 2-3 TREATMENT OF PULMONARY EMBOLISM 2-3 PREVENTION OF SYSTEMIC EMBOLISM: 2-3 ACUTE MYOCARDIAL INFARCTION TISSUE HEART VALVES VALVULAR HEART DISEASE ATRIAL FIBRILLATION RECURRENT SYSTEMIC EMBOLISM MECHANICAL HEART VALVE 2.5-3.5 FROM: ORAL ANTICOAGULANTS. MECHANISM OF ACTION, CLINICAL EFFECTIVENESS, AND OPTIMAL THERAPEUTIC RANGE. CHEST 1995;108:[id number]. Performed By: #### 9 2096, 76712 #### [facility] [address] [facility] PT Coag (PPP) [Time] 14.8 s Normal 12.3-14.[address] [facility] Comment on above: Order Comment: No: D o not add to previous draw Result Comment: ALL RESULTS MUST BE INTERPRETED WITH RESPECT TO BLOOD DRAWING ARTIFACT OR DILUTION ERROR OF ANTICOAGULANT AT THE TIME OF SAMPLING. Performed By: #### 9 2096, 14212 #### [facility] [address] [facility] [address] *MRSA/MSSA DNA NASALon 05-15 *MRSA/MSSA DNA NASAL Clinical Report: (D ) Specimen/Source: NASAL SWAB/NARES Collected: 05/15/2022 08:30 Status: Final Last Updated: 05/15/2022 14:49 MSSA DNA (Final) Negative MRSA DNA (Final) Negative Normal The [facility] Comment on above: Performed By: #### 9 2096, [id number] #### [facility] [address] HEMATOCRITon 05-15-2022 Hematocrit (Bld) [Volume fraction] 29.3 % Low 36.0-45.0 [facility] Comment on above: Order Comment: No: D o not add to previous draw Performed By: #### 9 2096, 97818 #### [facility] [address] [facility]. [address] HEMOGLOBINon 05-15-2022 Hemoglobin (Bld) [Mass/Vol] 9.7 g/dL Low 12.0-15.[address] [facility] Comment on above: Order Comment: No: D o not add to previous draw Performed By: #### 9 [id number], [id number] #### [facility] [address] [place] [address], [facility] HUMERUS LEFTon 05-15-[address] [facility] Department of Radiology [address] [place] [id number] Patient Name: ELIZ HEWITT : 1935 Sex: F Age: Race: White Pt. Location: Patient Status: O Ordered Date: 05/15/2022 7:30:00 AM Completed Date: 05/15/2022 11:02 AM Requesting Provider: ZANA MAX Attending Provider: ZANA MAX Report Copy To: Signs & Symptoms: ORIF LEFT HUMERUS, NON-UNION, WITH ICBG VS FIBULAR STRUT History: Comments: ORIF LEFT HUMERUS, NON-UNION, WITH ICBG VS FIBULAR STRUT Exam: HUMERUS LEFT HUMERUS LEFT 05/15/2022 11:02 AM CLINICAL INDICATIONS: ORIF LEFT HUMERUS, NON-UNION, WITH ICBG VS FIBULAR STRUT TECHNOLOGIST COMMENTS: 30 secs of fluoro used by Dr Max QUESTION FOR THE RADIOLOGIST: ORIF LEFT HUMERUS, NON-UNION, WITH ICBG VS FIBULAR STRUT PROTOCOL: AP(PA) and Lateral views were obtained. COMPARISON: None FINDINGS: Intraoperative fluoroscopy as is the clinical service. Radiology is not present. A total of 30.6 seconds of fluoroscopic time was utilized. 7 spot images were obtained IMPRESSION: Intraoperative fluoroscopy Electronically signed: Maribell Draper. Transcribed by: [email or web address], User Resident: Electronically Signed by: MARIBELL DRAPER @ 05/15/2022 11:[address] [facility] Comment on above: Order Comment: No: D o not add to previous draw Operative Reporton Operative Report MR#: [id number] [facility] Pt. Name: Eliz Hewitt Room #: 0C Discharge Date: Birthdate: 1935 OPERATIVE REPORT DATE OF SURGERY: 05/15/2022 SURGEON: Zana Max M.D. ASSISTANTS: 1. David Pino MD. 2. Hugo Ford MD. 3. Luis Enrique oFwler MD. 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 POSTOPERATIVE DIAGNOSIS: Left proximal humeral shaft fracture nonunion. PROCEDURES PERFORMED: 1. Open reduction and internal fixation of left proximal humerus fracture nonunion. 2. Use of application of the Infuse biologic. 3. Application of allograft fibular strut bone graft. ANESTHESIA: General. BLOOD LOSS: 200. FLUIDS: Per Anesthesia record. SPECIMENS: None. COMPLICATIONS: None. IMPLANTS: Maximo proximal humerus plate with corresponding cortical and locking screws. INDICATIONS: The patient is an 86-year-old female who arrived orthopedic clinic with complaints of left upper shoulder pain. The patient states she had a known proximal humeral shaft fracture that was treated nonoperatively that she sustained 1 year ago. X-rays were taken that demonstrated a nonunion about the proximal humerus. The fracture had gross motion. The patient continued to complain of pain and inability to use the left arm. Risks and benefits were discussed and x-rays were taken that demonstrated a nonunion. The patient elected to proceed with the procedure as mentioned above. PROCEDURE IN DETAIL: The patient was met in preoperative area. Informed consent was obtained. The appropriate surgical site was marked. All questions raised by the patient were answered by attending physician as well as assistants present. The patient was taken back to the operative suite where general anesthesia was smoothly induced. The patient's left upper extremity was prepped and draped in standard sterile fashion. Appropriate surgical time-out was completed to confirm patient, procedure, and laterality using 2 patient identifiers. We began by making a standard deltopectoral approach to the left upper extremity with extension distally lateral to the biceps. Sharp knife was used to incise through skin and then Bovie electrocautery, carried this down to the bicipital fascia. This was split longitudinal and the biceps was retracted medially along with the neurovascular bundle. The brachialis was then retracted bilaterally to reveal the humeral shaft. We encountered the large pseudarthrosis, and a curette, rongeur, and Barnes were used to take down this in its entirety. We then carried our dissection proximally to the level of the rotator cuff footprint with care to not violate the rotator cuff itself. Once the pseudoarthrosis was completely removed and cleaned, a large reduction clamp was placed and then the fracture was actually loaded to reduce the fracture. Biplanar fluoroscopy was taken to confirm appropriate fracture reduction. We then placed our 10-hole [place] proximal humerus plate and pinned this into position. Once again, biplanar fluoroscopy was taken to confirm appropriate plate placement as well as plate height on the greater tuberosity. We then filled the plate proximally and distally with both cortical and locking screws. The biplanar fluoroscopy was once again taken to confirm appropriate plate placement, fracture reduction as well as screw length. We then used a power belem to bur a fibular strut graft and mixed it with the patient's own blood to make a cancellous bone paste and packed this into the nonunion site. We then applied a large Infuse to the fracture site as well. Prior to all of the addition of the bone graft, the wound was copiously irrigated with Betadine and normal saline. The wound was then closed using #0 Vicryl, 2-0 Vicryl, and skin for the deborah. The wound was dressed with a Mepilex dressing. The patient was awoken from general anesthesia and transferred to PACU for recovery. The patient will be monitored in PACU, will be discharged home today, will be admitted for 1 night for observation. The patient remained nonweightbearing to the left upper extremity. Dr. Max was present for all critical portions of the case and made all critical decisions regarding the patient's care. Electronically Signed by: Zana Max M.D. 05/20/2022 01:24 P Zana Max M.D. I was present for the haskins and critical portions and I was otherwise immediately available to assist. Date Dict: 05/15/2022/10:57 A/David Pino MD Date Trans: 05/15/2022 06:12 P/mmo [id number] Normal [facility] POC GLUCOSE LABon 05-15-2022 Glucose [Mass/Vol] 77 mg/dL Normal 70-100 [facility] Comment on above: Performed By: #### 5 0103 #### [facility] [address] [facility] [place] [address], [facility] Glucose [Mass/Vol] 73 mg/dL Normal 70-100 [facility] Comment on above: Performed By: #### 5 0103 #### [facility] [address] [place] [address], [facility] Glucose [Mass/Vol] 63 mg/dL Low 70-100 [facility] Comment on above: Performed By: #### 5 0103 #### [facility] [address] CBC AUTO DIFFon 05-13-2022 BASO # 0.1 103/ul Normal 0.0-0.1 [facility] Comment on above: Performed By: #### C VDTBH #### [facility] [address] [place] [address] Dr. Adan Rinaldi Basophils/100 WBC (Bld) 1.0 % Normal 0.2-2.0 [facility] Comment on above: Performed By: #### C VDTBH #### [facility] [address] [address] [address] Adan Rinaldi EO # 0.5 103/ul Normal 0.0-0.7 [facility] Comment on above: Performed By: #### C VDTBH #### [facility] [address] [address] [address] Adan Rinaldi Eosinophils/100 WBC (Bld) 6.9 % Normal 0.9-7.0 [facility] Comment on above: Performed By: #### C VDTBH #### [facility] [address] [place] [address] Dr. Adan Rinaldi Erythrocyte distribution width (RBC) [Ratio] 14.2 % Normal 11.0-15.0 [facility] Comment on above: Performed By: #### C VDTBH #### [facility] [address] [place] [address] Dr. Adan Rinaldi Hematocrit (Bld) [Volume fraction] 31.1 % Critically low 36.0-48.0 [facility] Comment on above: Performed By: #### C VDTBH #### [facility] [address] [place] [address] Dr. Adan Rinaldi Hemoglobin (Bld) [Mass/Vol] 9.9 g/dL Critically low 12.0-16.0 [facility] Comment on above: Performed By: #### C VDTBH #### [facility] [address] [place] [address] Dr. Adan Rinaldi IG # 0.02 10e3/ul Normal 0.00-0.03 [facility] Comment on above: Performed By: #### C VDTBH #### [facility] [address] [place] [address] Dr. Adan Rinaldi IG % 0.3 % Normal 0.0-0.5 [facility] Comment on above: Performed By: #### C VDTBH #### [facility] [address] [place] [address] Dr. Adan Rinaldi LYMPH # 1.6 103/ul Normal 1.2-3.8 [facility] Comment on above: Performed By: #### C VDTBH #### [facility] [address] [place] [address] Dr. Adan Rinaldi Lymphocytes/100 WBC (Bld) 22.1 % Normal 20.5-60.0 [facility] Comment on above: Performed By: #### C VDTBH #### [facility] [address] [place] [address] Dr. Adan Rinaldi MANUAL DIFF REQ NO Normal [facility] Comment on above: Performed By: #### C VDTBH #### [facility] [address] [place] [address] Dr. Adan Rinaldi MCH (RBC) [Entitic mass] 28.5 pg Normal 26.7-34.0 [facility] Comment on above: Performed By: #### C VDTBH #### [facility] [address] [place] [address] Dr. Adan Rinaldi MCHC (RBC) [Mass/Vol] 31.8 g/dL Normal 29.9-35.2 [facility] Comment on above: Performed By: #### C VDTBH #### [facility] [address] [place] [address] Dr. Adan Rinaldi MCV (RBC) [Entitic vol] 89.6 fL Normal 81.0-99.0 [facility] Comment on above: Performed By: #### C VDTBH #### [facility] [address] [place] [address] Dr. Adan Rinaldi MONO # 0.6 103/ul Normal 0.3-0.8 [facility] Comment on above: Performed By: #### C VDTBH #### [facility] [address] [place] [address] Dr. Adan Rinaldi Monocytes/100 WBC (Bld) 8.4 % Normal 1.7-12.0 [facility] Comment on above: Performed By: #### C VDTBH #### [facility] [address] [place] [address] Dr. Adan Rinaldi NEUT # 4.4 103/ul Normal 1.4-6.5 [facility] Comment on above: Performed By: #### C VDTBH #### [facility] [address] [place] [address] Dr. Adan Rinaldi Neutrophils/100 WBC (Bld) 61.3 % Normal 43.0-75.0 [facility] Comment on above: Performed By: #### C VDTBH #### [facility] [address] [place] [address] Dr. Adan Rinaldi Platelet mean volume (Bld) [Entitic vol] 9.1 fL Critically low 9.5-13.5 [facility] Comment on above: Performed By: #### C VDTBH #### [facility] [address] [address] [address] Adan Rinaldi PLT 215 103/ul Normal 150-450 [facility] Comment on above: Performed By: #### C VDTBH #### [facility] [address] [address] [address] Adan Rinaldi RBC 3.47 106/ul Critically low 4.20-5.40 [facility] Comment on above: Performed By: #### C VDTBH #### [facility] [address] [place] [address] Dr. Adan Rinaldi WBC 7.1 103/ul Normal 4.0-11.0 [facility] Comment on above: Performed By: #### C VDTBH #### [facility] [address] [place] [address] Dr. Adan Rinaldi MRSA NARES #1on 05-13-2022 MRSA NARES #1 Culture Observations: NO GROWTH OF MRSA AT 48 HOURS. Normal [facility] Comment on above: Performed By: #### P OCGLUC #### [facility] [address] [place] [address] Dr. Adan Rinaldi PROF CHEM 8 (BAS METB)on Anion gap [Moles/Vol] 11.6 mmol/L Normal [facility] Comment on above: Performed By: #### H STROPN, BMP #### [facility] [address] [place] [address] Dr. Adan Rinaldi Calcium [Mass/Vol] 8.8 mg/dL Normal 8.5-10.1 [facility] Comment on above: Performed By: #### H STROPN, BMP #### [facility] [address] [place] [address] Dr. Adan Rinaldi Chloride [Moles/Vol] 103 mmol/L Normal 98-107 [facility] Comment on above: Performed By: #### H STROPN, BMP #### [facility] [address] [place] [address] Dr. Adan Rinaldi CO2 [Moles/Vol] 25.9 mmol/L Normal 21.0-32.0 [facility] Comment on above: Performed By: #### H STROPN, BMP #### [facility] [address] [place] [address] Dr. Adan Rinaldi Creatinine [Mass/Vol] 1.37 mg/dL Critically high 0.55-1.02 [facility] Comment on above: Performed By: #### H STROPN, BMP #### [facility] [address] [address] [address] Adan Rinaldi EGFR-AF MARSHALLESE 44 mL/min/1.73m2 Critically low >=60 [facility] Comment on above: Performed By: #### H STROPN, BMP #### [facility] [address] [place] [address] Dr. Adan Rinaldi EGFR-NON AF MARSHALLESE 37 mL/min/1.73m2 Critically low >=60 [facility] Comment on above: Performed By: #### H STROPN, BMP #### [facility] [address] [place] [address] Dr. Adan Rinaldi Glucose [Mass/Vol] 165 mg/dL Critically high 74-106 [facility] Comment on above: Performed By: #### H STROPN, BMP #### [facility] [address] [place] [address] Dr. Adan Rinaldi Potassium [Moles/Vol] 4.5 mmol/L Normal 3.5-5.1 [facility] Comment on above: Performed By: #### H STROPN, BMP #### [facility] [address] [place] [address] Dr. Adan Rinaldi Sodium [Moles/Vol] 136 mmol/L Normal 136-145 [facility] Comment on above: Performed By: #### H STROPN, BMP #### [facility] [address] [place] [address] Dr. Adan Rinaldi Urea nitrogen [Mass/Vol] 32.0 mg/dL Critically high 7.0-18.0 [facility] Comment on above: Performed By: #### H STROPN, BMP #### [facility] [address] [place] [address] Dr. Adan Rinaldi Urea nitrogen/Creatinine [Mass ratio] 23.4 mg/mg Normal [facility] Comment on above: Performed By: #### H LYNNE, BMP #### [facility] [address] [place] [address] Dr. Adan Rinaldi PROTIMEon 05-13-2022 INR Coag (PPP) [Relative time] 1.00 {INR} Normal [facility] Comment on above: Performed By: #### H LYNNE, BMP #### [facility] [address] [place] [address] Dr. Adan Rinaldi INR GUIDELINES SEE BELOW Normal [facility] Comment on above: Result Comment: DAVID RED INR: 2.0 - 3.0 CONDITIONS NOT LISTED BELOW 2.5 - 3.5 FOR PROSTHETIC HEART VALVE REPLACEMENT 2.5 - 3.5 RECURRENT THROMBOSIS Performed By: #### H LYNNE, BMP #### [facility] [address] [place] [address] Dr. Adan Rinaldi PT Coag (PPP) [Time] 10.8 s Normal 9.0-11.6 [facility] Comment on above: Performed By: #### H LYNNE, BMP #### [facility] [address] [place] [address] Dr. Adan Rinaldi PTTon 05-13-2022 aPTT Coag (Bld) [Time] 25.8 s Normal 22.3-36.2 [facility] Comment on above: Performed By: #### H LYNNE, BMP #### [facility] [address] [place] [address] Dr. Adan Rinaldi HUMERUS LEFTon 05-04-2022 [facility] Department of Radiology [address] [place] [address] Patient Name: ELIZ HEWITT : 1935 Sex: F Age: Race: White Pt. Location: 85 Patient Status: Ordered Date: 05/04/2022 10:00:00 AM Completed Date: 05/04/2022 10:50 AM Requesting Provider: ZANA MAX Attending Provider: DAVEY CARRASCO Report Copy To: Signs & Symptoms: M79.602 Pain in left arm I10 History: Comments: Evaluate Exam: HUMERUS LEFT HUMERUS LEFT 05/04/2022 10:50 AM CLINICAL INDICATIONS: M79.602 Pain in left arm I10 TECHNOLOGIST COMMENTS: Patient states follow up left humerus injury May 2021. QUESTION FOR THE RADIOLOGIST: Evaluate PROTOCOL: AP(PA) and Lateral views were obtained. COMPARISON: None FINDINGS: Patient demonstrates a markedly angulated fracture of the proximal shaft of the humerus with a apex lateral configuration and I angle of approximately 50 degrees between the 2 major fragments. There is is at least a 2 part fracture. There is interval callus formation developing at the angulated fracture site. There may be segmental component. The humeral head is in contact with the glenoid although there is some laxity. IMPRESSION: Patient demonstrates subacute fracture with some degree of callus formation across the segmental components with major angulation and a 2 part configuration. Electronically signed: Gm Garrison. Transcribed by: [email or web address], User Resident: Electronically Signed by: GM GARRISON @ 05/04/2022 03:[address] [facility] Comment on above: Order Comment: No: D o not add to previous draw BNPon 03-25-2022 Natriuretic peptide B (Bld) [Mass/Vol] 4401.0 pg/mL Critically high <=1,800.0 [facility] Comment on above: Performed By: #### P OCGLUC #### [facility] [address] [address] [address] Adan Rinaldi PROF CHEM 8 (BAS METB)on Anion gap [Moles/Vol] 13.4 mmol/L Normal [facility] Comment on above: Performed By: #### H STROPN, BMP #### [facility] [address] [place] [address] Dr. Adan Rinaldi Calcium [Mass/Vol] 8.6 mg/dL Normal 8.5-10.1 [facility] Comment on above: Performed By: #### H STROPN, BMP #### [facility] [address] [address] [address] Adan Rinaldi Chloride [Moles/Vol] 104 mmol/L Normal 98-107 [facility] Comment on above: Performed By: #### H STROPN, BMP #### [facility] [address] [place] [address] Dr. Adan Rinaldi CO2 [Moles/Vol] 24.4 mmol/L Normal 21.0-32.0 [facility] Comment on above: Performed By: #### H STROPN, BMP #### [facility] [address] [address] [address] Adan Rinaldi Creatinine [Mass/Vol] 1.60 mg/dL Critically high 0.55-1.02 [facility] Comment on above: Performed By: #### H STROPN, BMP #### [facility] [address] [place] [address] Dr. Adan Rinaldi EGFR-AF MARSHALLESE 37 mL/min/1.73m2 Critically low >=60 [facility] Comment on above: Performed By: #### H STROPN, BMP #### [facility] [address] [place] [address] Dr. Adan Rinaldi EGFR-NON AF MARSHALLESE 31 mL/min/1.73m2 Critically low >=60 [facility] Comment on above: Performed By: #### H STROPN, BMP #### [facility] [address] [place] [address] Dr. Adan iRnaldi Glucose [Mass/Vol] 251 mg/dL Critically high 74-106 [facility] Comment on above: Performed By: #### H STROPN, BMP #### [facility] [address] [place] [address] Dr. Adan Rinaldi Potassium [Moles/Vol] 4.8 mmol/L Normal 3.5-5.1 [facility] Comment on above: Performed By: #### H STROPN, BMP #### [facility] [address] [place] [address] Dr. Adan Rinaldi Sodium [Moles/Vol] 137 mmol/L Normal 136-145 [facility] Comment on above: Performed By: #### H STROPN, BMP #### [facility] [address] [place] [address] Dr. Adan Rinaldi Urea nitrogen [Mass/Vol] 46.0 mg/dL Critically high 7.0-18.0 [facility] Comment on above: Performed By: #### H STROPN, BMP #### [facility] [address] [place] [address] Dr. Adan Rinaldi Urea nitrogen/Creatinine [Mass ratio] 28.8 mg/mg Normal [facility] Comment on above: Performed By: #### H LYNNE, BMP #### [facility] [address] [place] [address] Dr. Adan Rinaldi BNPon 01-30-2022 Natriuretic peptide B (Bld) [Mass/Vol] 3098.0 pg/mL Critically high <=1,800.0 [facility] Comment on above: Performed By: #### P OCGLUC #### [facility] [address] [place] [address] Dr. Adan Rinaldi PROF CHEM 8 (BAS METB)on Anion gap [Moles/Vol] 11.5 mmol/L Normal [facility] Comment on above: Performed By: #### P OCGLUC #### [facility] [address] [place] [address] Dr. Adan Rinaldi Calcium [Mass/Vol] 8.9 mg/dL Normal 8.5-10.1 [facility] Comment on above: Performed By: #### P OCGLUC #### [facility] [address] [address] [address] Adan Rinaldi Chloride [Moles/Vol] 98 mmol/L Normal 98-107 [facility] Comment on above: Performed By: #### P OCGLUC #### [facility] [address] [address] [address] Adan Rinaldi CO2 [Moles/Vol] 29.7 mmol/L Normal 21.0-32.0 [facility] Comment on above: Performed By: #### P OCGLUC #### [facility] [address] [address] [address] Adan Rinaldi Creatinine [Mass/Vol] 1.58 mg/dL Critically high 0.55-1.02 [facility] Comment on above: Performed By: #### P OCGLUC #### [facility] [address] [address] [address] Adan Rinaldi EGFR-AF MARSHALLESE 38 mL/min/1.73m2 Critically low >=60 [facility] Comment on above: Performed By: #### P OCGLUC #### [facility] [address] [address] [address] Adan Rinaldi EGFR-NON AF MARSHALLESE 31 mL/min/1.73m2 Critically low >=60 [facility] Comment on above: Performed By: #### P OCGLUC #### [facility] [address] [address] [address] Adan Rinaldi Glucose [Mass/Vol] 108 mg/dL Critically high 74-106 [facility] Comment on above: Performed By: #### P OCGLUC #### [facility] [address] [address] [address] Adan Rinaldi Potassium [Moles/Vol] 4.2 mmol/L Normal 3.5-5.1 [facility] Comment on above: Performed By: #### P OCGLUC #### [facility] [address] [address] [address] Adan Rinaldi Sodium [Moles/Vol] 135 mmol/L Critically low 136-145 [facility] Comment on above: Performed By: #### P OCGLUC #### [facility] [address] [place], [place] [address] Dr. Adan Rinaldi Urea nitrogen [Mass/Vol] 47.0 mg/dL Critically high 7.0-18.0 [facility] Comment on above: Performed By: #### P OCGLUC #### [facility] [address] [place], [place] [address] Dr. Adan Rinaldi Urea nitrogen/Creatinine [Mass ratio] 29.7 mg/mg Normal [facility] Comment on above: Performed By: #### P OCGLUC #### [facility] [address] [address] [address] Adan Rinaldi CBC COMPLETE BLOOD COUNTon 01-14-2022 Erythrocyte distribution width (RBC) [Ratio] 14.0 % Normal 11.5-15.0 [facility] Comment on above: Order Comment: No: D o not add to previous draw Performed By: #### 9 2096, [id number] #### [facility] [address] [place] [address], [facility] Hematocrit (Bld) [Volume fraction] 29.4 % Low 36.0-45.[address] [facility] Comment on above: Order Comment: No: D o not add to previous draw Performed By: #### 9 2096, [id number] #### [facility] [address] [place] [address], [place] Hemoglobin (Bld) [Mass/Vol] 9.6 g/dL Low 12.0-15.[address] [facility] Comment on above: Order Comment: No: D o not add to previous draw Performed By: #### 9 2096, [id number] #### [facility] [address] [facility] [place] [address], [place] MCH (RBC) [Entitic mass] 29.3 pg Normal 27.0-33.[address] [facility] Comment on above: Order Comment: No: D o not add to previous draw Performed By: #### 9 2096, [id number] #### [facility] [address] [place] [address], [facility] MCHC (RBC) [Mass/Vol] 32.7 g/dL Normal 32.0-35.[address] [facility] Comment on above: Order Comment: No: D o not add to previous draw Performed By: #### 9 2096, #### [facility] [address] [place] [address], [facility] MCV (RBC) [Entitic vol] 89.6 fL Normal 82.0-98.[address] [facility] Comment on above: Order Comment: No: D o not add to previous draw Performed By: #### 9 2096, #### [facility] [address] [place] [address], [facility] Nucleated RBC/100 WBC (Bld) [Ratio] 0 % Normal 0-[address] [facility] Comment on above: Order Comment: No: D o not add to previous draw Performed By: #### 9 2096, #### [facility] [address] [address], [facility] PLAT CNT 219 10*3/uL Normal 150-[address] [facility] Comment on above: Order Comment: No: D o not add to previous draw Performed By: #### 9 2096, #### [facility] [address] [facility] [place] [address], [facility] RBC (Bld) [#/Vol] 3.28 10*6/uL Low 3.80-5.00 The [facility] Comment on above: Order Comment: No: D o not add to previous draw Performed By: #### 9 2096, [id number] #### [facility] [address] [place] [id number], [place] WBC (Bld) [#/Vol] 10.45 10*3/uL Normal 4.00-10.[address] [facility] Comment on above: Order Comment: No: D o not add to previous draw Performed By: #### 9 2096, 86546 #### [facility] [address] [place] [address], [place] COMP METABOLIC PANELon 01-14 Albumin [Mass/Vol] 3.5 g/dL Normal 3.5-5.7 The [facility] Comment on above: Order Comment: No: D o not add to previous draw Performed By: #### 9 2096, 01451 #### [facility] [address] [place] [address], [place] ALKALINE PHOSPH 62 IU/L Normal 34-104 The [facility] Comment on above: Order Comment: No: D o not add to previous draw Performed By: #### 9 2096, 48522 #### [facility] [address] [place] [address], [place] ALT [Catalytic activity/Vol] 5 U/L Low 7-[address] [facility] Comment on above: Order Comment: No: D o not add to previous draw Performed By: #### 9 2096, 76305 #### [facility] [address] [place] [address], [place] AST [Catalytic activity/Vol] 23 U/L Normal 13-[address] [facility] Comment on above: Order Comment: No: D o not add to previous draw Performed By: #### 9 2096, #### [facility] [address] [place] [address], [place] Bilirubin [Mass/Vol] 0.4 mg/dL Normal 0.3-1.[address] [facility] Comment on above: Order Comment: No: D o not add to previous draw Performed By: #### 9 2096, 01127 #### [facility] [address] [place] [address], [place] Calcium [Mass/Vol] 8.9 mg/dL Normal 8.6-10.3 The [facility] Comment on above: Order Comment: No: D o not add to previous draw Performed By: #### 9 2096, 83900 #### [facility] [address] [place] [address], [place] Chloride [Moles/Vol] 104 mmol/L Normal 98-[address] [facility] Comment on above: Order Comment: No: D o not add to previous draw Performed By: #### 9 2096, 62874 #### [facility] [address] [place] [address], [place] CO2 [Moles/Vol] 26 mmol/L Normal 21-31 The [facility] Comment on above: Order Comment: No: D o not add to previous draw Performed By: #### 9 2096, 60533 #### [facility] [address] [place] [address], [place] Creatinine [Mass/Vol] 1.79 mg/dL High 0.60-1.20 [facility] Comment on above: Order Comment: No: D o not add to previous draw Performed By: #### 9 2096, 72359 #### [facility] [address] [place] [address], [place] eGFR- 33 ml/min/1.73sq m Abnormal >60 [facility] Comment on above: Order Comment: No: D o not add to previous draw Result Comment: Calc ulation may not be valid for patients over 70 years Performed By: #### 9 2096, 74120 #### [facility] [address] [place] [address], [place] eGFR- non- 27 ml/min/1.73sq m Abnormal >[address] [facility] Comment on above: Order Comment: No: D o not add to previous draw Result Comment: Calc ulation may not be valid for patients over 70 years Performed By: #### 9 2096, 25930 #### [facility] [address] [place] [address], [place] Glucose [Mass/Vol] 49 mg/dL Critically low 70-[address] [facility] Comment on above: Order Comment: No: D o not add to previous draw Result Comment: M-CR ITICAL RESULT(S) REVIEWED, CALLED TO AND READ BACK BY ETELVINA PATEL AT 0651 Performed By: #### 9 2096, 23400 #### [facility] [address] [place] [address], [place] Potassium [Moles/Vol] 3.5 mmol/L Normal 3.5-5.[address] [facility] Comment on above: Order Comment: No: D o not add to previous draw Performed By: #### 9 2096, 36725 #### [facility] [address] [place] [address], [place] Protein [Mass/Vol] 6.9 g/dL Normal 6.0-8.3 [facility] Comment on above: Order Comment: No: D o not add to previous draw Performed By: #### 9 2096, 40564 #### [facility] [address] [place] [address], [place] Sodium [Moles/Vol] 139 mmol/L Normal 136-145 [facility] Comment on above: Order Comment: No: D o not add to previous draw Performed By: #### 9 2096, 88989 #### [facility] [address] [place] [address], [place] Urea nitrogen [Mass/Vol] 58 mg/dL High 7-[address] [facility] Comment on above: Order Comment: No: D o not add to previous draw Performed By: #### 9 2096, 08238 #### [facility] [address] [place] [address], [place] Cardiovascular Lab Reporton 01-14-2022 Cardiovascular Lab Report [facility] MR #: [id number] Physician: Tanisha Garcia of Milind Arellano Medicine Service Date: 01/13/2022 Division of Birthdate: 1935 Cardiology Room #: 3CD [id number] Adult Cardiovascular Services [facility] [address] [place] [address] Cardiovascular Laboratory Report INDICATION: The patient is an 86-year-old woman with complex medical history including prior aortic valve bioprosthetic replacement in 2008. She developed structural valve degeneration with severe aortic valve stenosis that was very symptomatic. She was in NYHA class 3 symptoms. In addition, she has severe calcific mitral valve stenosis and chronic kidney disease. She was evaluated in Cardiology and Cardiothoracic Surgery Clinics for management of her valvular disease. Her STS score for surgical aortic valve replacement was 8.06% consistent with high risk for surgical replacement of the aortic valve. She was recommended TAVR [id number] procedure for management of her severe symptomatic aortic valve stenosis. PROCEDURES: 1. Successful transcatheter aortic valve replacement via percutaneous transfemoral access using a 20 mm Enoch Ultra S3 transcatheter heart valve deployed at nominal volume +1 mL. 2. Left heart catheterization. 3. Access into the right and left common femoral arteries and left common femoral vein under ultrasound guidance. 4. Limited right and left common femoral angiography. 5. Preclosure in the right common femoral artery using 2 crossing 6-Cuban ProGlide devices. 6. Angio-Seal closure in the left common femoral artery. 7. Placement of a temporary pacemaker wire. INTERVENTIONAL CARDIOLOGY MACHINE COREMAKER: Tanisha Arellano M.D. CARDIOTHORACIC SURGERY MACHINE COREMAKER: Marcello Gregory M.D. COURIER DELIVERY DRIVER: Ramon Mejia M.D. METHODS: Procedure was explained to the patient with risks and benefits. She signed the consent. She was brought to airport maintenance laborer in a fasting state. The procedure was performed under conscious sedation in the airport maintenance laborer. Both groin areas were prepped and draped in usual fashion. Micropuncture technique was used for access in the right common femoral artery under ultrasound guidance. Micropuncture inner cannula angiography was performed followed by upsizing to a 6-Cuban x 11 cm sheath. Access was obtained using same technique in the left common femoral artery and after the inner cannula angiography, the access was upsized to a 6-Cuban x 11 cm sheath. Access was obtained also in the left common femoral vein using same technique and a 6-Cuban x 11 cm sheath was placed. Preclosure was performed in the right common femoral artery using 2 crossing ProGlide devices followed by upsizing to a 10-Cuban by 11 cm sheath. A 5-Cuban balloon temporary pacemaker wire was advanced through the femoral venous sheath into the right ventricular apex and adequate capture was confirmed. A 6-Cuban XB 3.0 guiding catheter was advanced through the left common femoral sheath and used to engage the left main coronary ostium. A Prowater wire was advanced into the LAD and a Synergy XD 3.5 x 12 mm drug-eluting stent was advanced into the proximal LAD. The guiding catheter was retracted. This was placed in order to protect the left main in case of left main coronary occlusion after deployment of the transcatheter valve. Heparin was administered intravenously and therapeutic ACT confirmed during the rest of the procedure. The 6-Cuban Multipurpose catheter was then advanced through the right common femoral access to the descending aorta over a J wire and the multipurpose catheter was then used to place a Lunderquist wire, which was used to upsize the access to the 14-Cuban Medrano E sheath, which was secured in place. We crossed the bioprosthetic prosthesis using a combination of a 6-Cuban AL1 diagnostic catheter and a stiff straight Glidewire after additional attempts using a 6-Cuban JR4 diagnostic catheter and a 6-Cuban multipurpose catheter. After crossing the valve, the AL1 catheter was advanced and an exchange length wire was placed and a 6-Cuban angled pigtail catheter was advanced to the left ventricular cavity and used to place an exchange length Amplatz Extra Stiff wire into the left ventricular cavity. Based on the measurements of the CT scan performed for preprocedural planning, we decided to proceed with a 20 mm Enoch S3 ultra valve, which was prepped using standard techniques at nominal volume plus 1 mL. The valve was then advanced and the valve and balloon assembly was reconstituted using standard technique. The valve was advanced across the bioprosthetic surgical valve and under rapid pacing at 180 bpm, the valve was deployed and the balloon was retracted. A pigtail catheter was then placed in the left ventricular cavity w (more content not included)... Normal The [facility] MAGNESIUM BLOODon 01-14-2022 Magnesium [Mass/Vol] 2.4 mg/dL Normal 1.9-2.[address] [facility] Comment on above: Order Comment: No: D o not add to previous draw Performed By: #### 9 1704, 31155 #### [facility] [address] Operative Reporton Operative Report MR#: [id number] [facility] Pt. Name: Eliz Hewitt Room #: 3CD [id number] Discharge Date: Birthdate: 1935 OPERATIVE REPORT DATE OF SURGERY: 01/13/2022 SURGEON: Marcello Gregory MD PREOPERATIVE DIAGNOSIS: Severe aortic stenosis of a bioprosthetic valve. 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 OPERATION: Valve in valve transcatheter aortic valve replacement with 20 mm Enoch ultra valve. CO-SURGEON: Tanisha Arellano M.D. SYSTEM SUPPORT ANALYST: Dr. Mejia. ANESTHESIA: MAC. INDICATIONS: This is an 86-year-old female with severe mitral stenosis and bioprosthetic aortic valve stenosis, who was recommended a valve in valve TAVR followed by potential intervention of mitral valve. PROCEDURE IN DETAIL: The patient was brought into the airport maintenance laborer and prepped and draped in the routine fashion. 1% lidocaine was infiltrated in both groins and percutaneous access was achieved with ultrasound guidance in both groins with a 6-Cuban sheaths. A temporary transvenous pacemaker inserted through the right femoral vein and tested for later use. The pigtail catheter was inserted into the ascending aorta and then the patient was heparinized. The right femoral sheath was upgraded to a 14-Cuban sheath. Over a Lunderquist wire, an L4 catheter inserted and ascending aorta through which a straight wire was used to cross the aortic valve. This was unsuccessful. We tried the JR catheter and that did not work. We went back to the Glidewire with a multipurpose catheter that did not work in and finally went back to AL1 catheter and used a straight to finally cross the bioprosthetic aortic valve. With much difficulty, we were able to position the pigtail catheter into the left ventricle in the appropriate position avoiding any entanglement with the papillary muscle. An an extra stiff Amplatz wire was inserted to the left ventricle and fluoroscopy confirmed the position of the bioprosthetic valve. A 20 mm Enoch ultra valve was inserted and the balloon was loaded into the valve. The valve was positioned and under rapid ventricular pacing, it was deployed successfully. A transthoracic echocardiogram showed no paravalvular leak and mean pressure gradient of 7 mmHg. Remeasured gradient through the left ventricular catheter and was 10 mm mean. At this point, the delivery system was removed. Right femoral sheath was removed and Protamine was given. Right femoral artery was repaired with ProGlide stitches. Left femoral arterial sheath was removed and then repaired with ProGlide stitches. Temporary transvenous pacemaker was kept transiently even the patient remained in sinus rhythm with a slow rate in the 40s to 50s. The patient tolerated the procedure well, was taken to the ICU in a stable condition. Electronically Signed by: Marcello Gregory MD 01/15/2022 02:09 P Marcello rGegory MD Date Dict: 01/13/2022/05:18 P/Marcello Gregory MD Date Trans: 01/14/2022 03:29 A/rabia [id number] Normal [address] [facility] POC GLUCOSE LABon 01-14-2022 Glucose [Mass/Vol] 165 mg/dL High 70-100 The [facility] Comment on above: Performed By: #### 5 0103 #### [facility] [address] [facility] [place] [address], [facility] Glucose [Mass/Vol] 166 mg/dL High 70-100 The [facility] Comment on above: Performed By: #### 9 2097, 55910 #### [facility] [address] [facility] [place] [address], [facility] POC GLUCOSE LABon 01-13-2022 Glucose [Mass/Vol] 266 mg/dL High 70-100 The [facility] Comment on above: Performed By: #### 8 5499 #### [facility] [address] [facility] [place] [address], [place] Glucose [Mass/Vol] 196 mg/dL High 70-100 The [facility] Comment on above: Performed By: #### 9 2096, 84806 #### [facility] [address] [place] [address], [place] Glucose [Mass/Vol] 106 mg/dL High 70-100 The [facility] Comment on above: Performed By: #### 9 2096, 72281 #### [facility] [address] [place] [address], [place] TYPE AND SCREENon 01-13-2022 ABO INTERPRETATION A Normal [facility] Comment on above: Performed By: #### 9 2096, 07392 #### [facility] [address] [place] [address], [place] RH INTERPRETATION Positive Normal The [facility] Comment on above: Performed By: #### 9 2096, 60571 #### [facility] [address] [place] [address], [place] CREATININE BLOODon 2 Creatinine [Mass/Vol] 1.80 mg/dL High 0.60-1.20 [facility] Comment on above: Performed By: #### 2 5656 #### [facility] [address] [place] [address], [place] eGFR- 33 ml/min/1.73sq m Abnormal >[address] [facility] Comment on above: Result Comment: Calc ulation may not be valid for patients over 70 years Performed By: #### 2 5656 #### [facility] [address] [place] [address], [place] eGFR- non- 27 ml/min/1.73sq m Abnormal >[address] [facility] Comment on above: Result Comment: Calc ulation may not be valid for patients over 70 years Performed By: #### 2 5656 #### [id number] [place] [address] CT ABDOMEN AND PELVIS WO CON TRASTon 12-19-2021 CT ABDOMEN AND PELVIS WO CONTRAST [facility] Department of Radiology [address] [place] [id number] Patient Name: ELIZ HEWITT : 1935 Sex: F Age: Race: White Pt. Location: Patient Status: D Ordered Date: 11/18/2021 11:30:00 AM Completed Date: 12/19/2021 12:04 PM Requesting Provider: DAVEY CARRASCO Attending Provider: DAVEY CARRASCO Report Copy To: YOKO HELMS Signs & Symptoms: I35.0 Nonrheumatic aortic (valve) stenosis I10 no contrast per davey carrasco due to poor gfr History: Annika labs will need done *patient son cannot bring her until later, labs done and she said IV access has not been an issue Comments: (TAVR) Protocol half dose of contrast Exam: CT ABDOMEN AND PELVIS WO CONTRAST CT ABDOMEN AND PELVIS WO CONTRAST 12/19/2021 12:04 PM PROTOCOL: Axial CT angiography images were obtained with IV contrast. TECHNIQUE: Multidetector CT axial slices of the abdomen and pelvis without IV contrast. No IV contrast utilized due to history of GFR of only 27. Multiplanar reformats were performed and viewed on a separate workstation and reviewed to further define anatomy and possible pathology. All CT scans at this facility use dose modulation, iterative reconstruction, and/or weight based dosing when appropriate to reduce radiation dose to as low as reasonably achievable COMPARISON: None. FINDINGS: Lack of IV and oral contrast markedly compromises assessment of abdominal parenchymal organs adenopathy and bowel Large portions of the right sided abdomen are excluded from [id number] and not imaged Grossly, the imaged portions of the liver adrenal glands and kidneys spleen and pancreas show no acute findings. There is extensive atherosclerotic calcifications of the branches of the celiac trunk and superior mesenteric artery No evidence for small bowel obstruction at the levels imaged No free fluid and no free air The abdominal aorta shows extensive atherosclerotic calcification as do the bilateral common iliac arteries but grossly no aneurysm. I cannot assess for dissection stenosis or occlusion without IV contrast Grossly no fracture or destructive lesion within the imaged portions of the abdomen and pelvis IMPRESSION: * No acute findings. No abdominal aortic or bilateral common iliac artery aneurysm, although there is extensive atherosclerotic calcifications. Electronically signed: Cnotreras Polo. Transcribed by: [email or web address], User Resident: Electronically Signed by: CONTRERAS POLO @ 12/24/2021 08:[address] [facility] Comment on above: Order Comment: No: D o not add to previous draw CT CHEST WO CONTRASTon 12-19 CT CHEST WO CONTRAST [facility] Department of Radiology [address] [place] [id number] Patient Name: ELIZ HEWITT : 1935 Sex: F Age: Race: White Pt. Location: Patient Status: D Ordered Date: 11/18/2021 11:30:00 AM Completed Date: 12/19/2021 12:04 PM Requesting Provider: DAVEY CARRASCO Attending Provider: DAVEY CARRASCO Report Copy To: YOKO HELMS Signs & Symptoms: I35.0 Nonrheumatic aortic (valve) stenosis I10 History: [place] labs will need done Comments: EKG gated-TAVR protocol half dose of contrast , EKG gated-TAVR protocol no contrast per davey carrasco due to poor gfr Exam: CT CHEST WO CONTRAST CT CHEST WO CONTRAST 12/19/2021 12:04 PM CLINICAL INDICATIONS: I35.0 Nonrheumatic aortic (valve) stenosis I10 TECHNOLOGIST COMMENTS: TAVR STUDY UNABLE TO HAVE CONTRAST DUE TO GFR 27 QUESTIONS PER RADIOLOGIST: EKG gated-TAVR protocol half dose of contrast , EKG gated-TAVR protocol no contrast per davey carrasco due to poor gfr PROTOCOL: Axial CT angiography images were obtained with IV contrast. TECHNIQUE: Multidetector CT axial slices of the chest were obtained without IV contrast. Multiplanar reformats were performed and viewed on a separate workstation and reviewed to further define anatomy and possible pathology. All CT scans at this facility use dose modulation, iterative reconstruction, and/or weight based dosing when appropriate to reduce radiation dose to as low as reasonably achievable. COMPARISON: None.. FINDINGS: Lower neck: Thyroid gland within normal limits, no supraclavicle adenopathy. Vessels: Pulmonary arteries appeared grossly unremarkable. Mild to moderate atherosclerotic changes in the aorta. and coronary arteries. Mediastinum and Kristi: Within normal limits. Heart: Normal size. No pericardial effusion. Prosthetic aortic valve. Severe mitral valve annular calcification. Airways: Within normal limits with tracheal bronchial calcification seen Lungs: 3 mm calcified granuloma in the medial segment of the right lower lobe in axial image 105 series 4. Pleura: Within normal limits. Chest Wall: Sternotomy wires from prior CABG procedure. Upper Abdomen: Please refer to abdomen CT report for full details. Bones: Bony spurring in the thoracic spine suggesting mild spondylosis. Gated noncontrast calcium scoring part of the study is limited due to presence of aortic valve metallic prosthesis in place limiting the ability in evaluating the coronary cusp calcification. T aVR measurements: Coronal reconstruction of the aortic outflow tract and ascending aorta is saved. Localization of the left coronary cusp, right coronary cusp and noncoronary cusp within the prosthetic aortic valve in the axial plane. Localization of the esophagus in the axial plane as well and in 3-D images. 3. Cusped view, anterior view and no ADMINISTRATIVE SUPPORT TECHNICIAN-CAU view are saved. The annulus measures 19.1 x 15.8 mm with surface area of 1.41 cm Square and perimeter of 50.1 mm The height of the left coronary artery is 21 mm from the ostium and the height of the right coronary artery is 17.9 mm from the ostium. The left coronary sinus measures 23.5 mm, right sinus measures 25.4 mm and noncoronary sinus measures 25 mm. Sinotubular junction measurement is 28 mm in diameter, ascending aorta measurement is 28.1 mm in diameter. Infrarenal abdominal aorta diameter is 17.2 mm. Right common iliac artery diameter is 8.2 mm, right external iliac artery diameter is 7.3 mm and right common femoral artery diameter is 6.7 mm. Diameter of the left common iliac artery is 8.0 mm, diameter of the left external iliac artery is 6.3 mm and diameter of the left common femoral artery is 7.8 mm There is mild tortuosity of the common and external iliac arteries bilaterally manifested by vascular calcifications in the distal abdominal aorta and iliac vessels are seen in the 3-D volume rendered images IMPRESSION: Limited T aVR evaluation due to lack of IV contrast because of low GFR. However, the measurements as described above. Aortic valve replacements prosthesis limiting evaluation of the calcium scoring of the aortic valve leaflets. Small calcified adenoma in the right lower lobe. Mild thoracic spondylosis. Evidence of prior sternotomy with significant vascular calcification seen Electronically signed: Jessica Horton. Transcribed by: [email or web address], User Resident: Electronically Signed by: JESSICA HORTON @ 12/25/2021 02:[address] [facility] Comment on above: Order Comment: No: D o not add to previous draw Cardiovascular Lab Reporton 11-12-2021 Cardiovascular Lab Report [facility] #[facility] [id number] Physician: Tanisha Garcia of Milind Arellano Medicine Service Date: 11/11/2021 Division of Birthdate: 1935 Cardiology Room #: Adult Cardiovascular Services [facility] [address] [place] [id number] Cardiovascular Laboratory Report INDICATION: The patient is an 86-year-old woman, who has a history of prior bioprosthetic aortic valve replacement. She also has mitral stenosis. Recently, she has been having recurrent symptoms of shortness of breath on mild exertion and episodes of decompensated diastolic heart failure related to her valvular disease. Her mitral valve stenosis has progressed to becoming severe and her aortic valve stenosis has become [id number] by transthoracic echocardiogram. She was evaluated in Cardiology Clinic and was referred for further evaluation of her valvular disease by transesophageal echocardiogram which was done earlier today that showed severe mitral valve stenosis, moderate mitral valve regurgitation, and severe stenosis of the aortic bioprosthesis. She was then referred for cardiac catheterization. PROCEDURES: 1. Right heart catheterization. 2. Bilateral selective coronary angiography. 3. Aorto iliac angiography with runoff. 4. Limited right common femoral angiography. 5. Access into the right common femoral artery and vein under ultrasound guidance. METHOD: Procedure was explained to the patient with risks and benefits. She signed consent. She was brought to airport maintenance laborer in a fasting state. The right groin area was prepped and draped in usual the fashion. Micropuncture technique and ultrasound guidance were used for access in the right common femoral artery. Inner cannula angiography was performed followed by upsizing to a 4-Cuban x 11 cm sheath. Access was obtained using the same technique in the right common femoral vein and a 6-Cuban x 11 cm sheath was placed. A 6-Cuban Willard catheter was used for right catheterization with measurement of pressures and calculation of cardiac output using the estimated Belle method. Willard catheter was removed. Bilateral selective angiography was then performed using 4-Cuban JL4 and JR4 diagnostic catheters. A 4-Cuban straight pigtail catheter was advanced and placed in the distal abdominal aorta. An abdominal aortogram with runoff was performed using power injection of contrast. Catheter was removed, procedure was concluded. Manual compression was used for hemostasis in the right common femoral artery and vein. She will be observed for 4 hours and then discharged to home. TOTAL SEDATION TIME: 50 minutes. TOTAL FLUORO TIME: 8.15 minutes. TOTAL AIR KERMA: 452 mGy. TOTAL CONTRAST VOLUME: 20 mL. HEMODYNAMICS: RA 2. RV 53/0, 6, PA 51/15, mean 30. Pulmonary wedge pressure 18, AO 128/41, mean 69. Cardiac output 4.66. Cardiac index 2.87. PA sat 68%, AO sat 99%. CORONARY ANGIOGRAPHY: 1. This is a left dominant circulation. 2. Left main arises from left coronary cusp. It bifurcates into left anterior and anterior descending and circumflex vessels. The left main is free of disease. 3. Left anterior descending: This is a moderate caliber vessel that has mild disease. 4. Circumflex vessel: This is very large and dominant. It has mild disease. 5. Right coronary artery: This arises from the right coronary cusp. It is a small and nondominant vessel. It has mild disease. Abdominal aorta iliac angiography with runoff. This showed patent distal abdominal aorta and common, internal and external iliac arteries bilaterally. There are no significant stenotic lesions noted throughout. There is evidence of mild calcifications in the common iliac arteries bilaterally. Quantitative vascular analysis was performed with a minimum measurement of 7 mm obtained throughout the iliac and common femoral arteries. Limited right common femoral angiography. This showed access to be in the right common femoral artery just above the femoral bifurcation with no obstructive lesions noted in the femoral artery or proximal branches. FINDINGS: 1. Mild three-vessel coronary disease. 2. Moderate pulmonary hypertension. 3. Moderately elevated left filling pressures. 4. Low right filling pressures. 5. Preserved cardiac index. 6. Patent iliac arteries bilaterally with a minimum diameter of 7 mm. RECOMMENDATIONS: 1. Medical therapy for coronary artery disease. 2. The patient will be reviewed in Cardiology Clinic in consultation with CT Surgery Service for management of her aortic valve and mitral valve severe stenosis. Options to include standard redo open-heart surgery for AVR and MVR vs. TAVR for the aortic valve with minimally invasive mitral valve replacement. Electronically Signed by: Tanisha Arellano M.D. 11/15/2021 (more content not included)... Normal [facility] Vital Signs Date Time Vital Sign Value Performing Clinician Facility 09-06-2023 13:00-0500 Body height 149.86 cm Yoko Helms Other [employer] Other 09-06-2023 13:00-0500 Body mass index (BMI) [Ratio] 29.69 kg/m2 Yoko Helms Other [employer] Other 09-06-2023 13:00-0500 Body weight 66.68 kg Yoko Helms Other [employer] Other 09-06-2023 13:00-0500 Diastolic blood pressure 81 mm[Hg] Yoko Helms Other [employer] Other 09-06-2023 13:00-0500 SaO2% (BldA) [Mass fraction] 97 % Yoko Helms Other [employer] Other 09-06-2023 13:00-0500 Systolic blood pressure 143 mm[Hg] Yoko Helms Other [employer] Other 06-07-2023 10:45-0400 Body height 149.86 cm Yoko Helms Other [employer] Other 06-07-2023 10:45-0400 Body mass index (BMI) [Ratio] 28.88 kg/m2 Yoko Helms Other [employer] Other 06-07-2023 10:45-0400 Body weight 64.86 kg Yoko Helms Other [employer] Other 06-07-2023 10:45-0400 Diastolic blood pressure 67 mm[Hg] Yoko Helms Other [employer] Other 06-07-2023 10:45-0400 Systolic blood pressure 117 mm[Hg] Yoko Helms Other [employer] Other 05-27-2023 15:30-0400 Body height 149.86 cm Yoko Helms Other [employer] Other 05-27-2023 15:30-0400 Body mass index (BMI) [Ratio] 29.69 kg/m2 Yoko Helms Other [employer] Other 05-27-2023 15:30-0400 Body weight 66.68 kg Yoko Helms Other [employer] Other 05-27-2023 15:30-0400 Diastolic blood pressure 66 mm[Hg] Yoko Helms Other [employer] Other 05-27-2023 15:30-0400 Respiratory rate 12 /min Yoko Helms Other [employer] Other 05-27-2023 15:30-0400 Systolic blood pressure 144 mm[Hg] Yoko Helms Other [employer] Other 01-25-2023 16:30-0400 Body height 149.86 cm Yoko Helms Other [employer] Other 01-25-2023 16:30-0400 Body mass index (BMI) [Ratio] 27.06 kg/m2 Yoko Helms Other [employer] Other 01-25-2023 16:30-0400 Body weight 60.78 kg Yoko Helms Other [employer] Other 01-25-2023 16:30-0400 Diastolic blood pressure 72 mm[Hg] Yoko Helms Other [employer] Other 01-25-2023 16:30-0400 SaO2% (BldA) [Mass fraction] 96 % Yoko Helms Other [employer] Other 01-25-2023 16:30-0400 Systolic blood pressure 122 mm[Hg] Yoko Helms Other [employer] Other 10-27-2022 16:15-0500 Body height 149.86 cm Yoko Helms Other [employer] Other 10-27-2022 16:15-0500 Body mass index (BMI) [Ratio] 27.26 kg/m2 Yoko Helms Other [employer] Other 10-27-2022 16:15-0500 Body weight 61.24 kg Yoko Helms Other [employer] Other 10-27-2022 16:15-0500 Diastolic blood pressure 60 mm[Hg] Yoko Helms Other [employer] Other 10-27-2022 16:15-0500 SaO2% (BldA) [Mass fraction] 97 % Yoko Helms Other [employer] Other 10-27-2022 16:15-0500 Systolic blood pressure 112 mm[Hg] Yoko Helms Other [employer] Other 09-24-2022 08:00-0500 Body temperature 98.4 [degF] DO [employer] Work Phone: [facility] 09-24-2022 08:00-0500 Diastolic blood pressure 74 mm[Hg] DO [employer] Work Phone: [facility] 09-24-2022 08:00-0500 Heart rate 79 /min DO [employer] Work Phone: [facility] 09-24-2022 08:00-0500 Respiratory rate 14 /min DO [employer] Work Phone: [facility] 09-24-2022 08:00-0500 SaO2% (BldA) [Mass fraction] 95 % DO Brad Harper Work Phone: [facility] 09-24-2022 08:00-0500 Systolic blood pressure 121 mm[Hg] DO Brad Harper Work Phone: [facility] 09-24-2022 06:00-0500 Body weight 62 kg DO Brad Harper Work Phone: [facility] 09-20-2022 12:13-0500 Body height 162.56 cm DO Brad Harper Work Phone: [facility] 09-20-2022 01:42-0500 Diastolic blood pressure 63 mm[Hg] DO Brad Harper Work Phone: [facility] 09-20-2022 01:42-0500 Heart rate 71 /min DO Brad Harper Work Phone: [facility] 09-20-2022 01:42-0500 Respiratory rate 20 /min DO Brad Harper Work Phone: [facility] 09-20-2022 01:42-0500 SaO2% (BldA) [Mass fraction] 95 % DO Brad Harper Work Phone: [facility] 09-20-2022 01:42-0500 Systolic blood pressure 139 mm[Hg] DO Brad Harper Work Phone: [facility] 09-19-2022 21:35-0500 Body temperature 97.5 [degF] DO Brad Harper Work Phone: [facility] 09-19-2022 20:46-0500 Body height 152.4 cm DO Brad Harper Work Phone: [facility] 09-19-2022 20:46-0500 Body weight 61.1 kg DO Brad Harper Work Phone: [facility] 09-05-2022 11:09-0500 Diastolic blood pressure 68 mm[Hg] Nurys Read MD Work Phone: [facility] 09-05-2022 11:09-0500 Heart rate 71 /min Nurys Read MD Work Phone: [facility] 09-05-2022 11:09-0500 Respiratory rate 16 /min Nurys Read MD Work Phone: [facility] 09-05-2022 11:09-0500 SaO2% (BldA) [Mass fraction] 97 % Nurys Read MD Work Phone: [facility] 09-05-2022 11:09-0500 Systolic blood pressure 179 mm[Hg] Nurys Read MD Work Phone: [facility] 09-04-2022 14:02-0500 Heart rate 59 /min Nurys Read MD Work Phone: [facility] 09-04-2022 00:35-0500 Body temperature 97.59 [degF] Nurys Read MD Work Phone: [facility] 04-21-2022 14:30-0400 Body height 160.02 cm Flower O[facility] Other [employer] Other 04-21-2022 14:30-0400 Body mass index (BMI) [Ratio] 25.68 kg/m2 [employer] Other [employer] Other 04-21-2022 14:30-0400 Body weight 65.77 kg [facility]lower [facility] Other [employer] Other 07-24-2021 16:00-0400 Body height 160.02 cm Flower O[facility] Other [employer] Other 07-24-2021 16:00-0400 Body mass index (BMI) [Ratio] 25.79 kg/m2 [facility] Other [employer] Other 07-24-2021 16:00-0400 Body weight 66.04 kg Flower Navarre[facility]a Other [employer] Other 06-10-2021 14:30-0400 Body height 160.02 cm [facility] Other [employer] Other 06-10-2021 14:30-0400 Body mass index (BMI) [Ratio] 26.04 kg/m2 [employer] Other [employer] Other 06-10-2021 14:30-0400 Body weight 66.68 kg [facility] Other [employer] Other Encounters Encounter Date Encounter Type Care Provider Facility Start: 11-01-2023 End: 11-01-2023 ambulatory [facility] Start: 09-06-2023 End: 09-06-2023 ambulatory Yoko Helms Other [employer] Other Start: 09-06-2023 Office outpatient vi sit 15 minutes Yoko Helms [facility] Start: 08-11-2023 End: 08-11-2023 ambulatory [facility] Start: 08-06-2023 End: 08-06-2023 ambulatory Yoko Helms Other [employer] Other Start: 08-06-2023 Telephone encounter Yoko Helms [facility] Start: 07-21-2023 End: 07-21-2023 ambulatory Yoko Helms Other [employer] Other Start: 07-21-2023 Telephone encounter Yoko Helms [facility] Start: 07-15-2023 End: 07-15-2023 ambulatory [facility] Start: 06-07-2023 End: 06-07-[address] [facility] Other Start: 06-07-2023 Patient encounter procedure Yoko Helms [facility] Start: 05-27-2023 End: 05-27-2023 ambulatory Yoko Helms Other [employer] Other Start: 05-27-2023 Office outpatient vi sit 25 minutes Yoko Scooter [facility] Start: 01-29-2023 End: 01-29-[address] [facility] Start: 01-27-2023 End: 01-27-2023 ambulatory Yoko Helms Other [employer] Other Start: 01-27-2023 Telephone encounter Yoko Helms [facility] Start: 01-25-2023 End: 01-25-2023 ambulatory Yoko Scooter Other [employer] Other Start: 01-25-2023 Office outpatient vi sit 25 minutes Yoko Scooter [facility] Start: 01-14-2023 End: 01-15-[address] TANISHA ARELLANO Facility:[facility] Start: 12-15-2022 End: 12-15-2022 ambulatory Yoko Scooter Other [employer] Other Start: 12-15-2022 Telephone encounter Yoko Helms [facility] Start: 11-30-2022 Postop follow up vis it related to original px Asad Pollard [facility] Start: 11-30-2022 End: 11-30-2022 ambulatory Asad Pollard Facility:[facility] Start: 11-30-2022 End: 11-30-2022 ambulatory DO Brad Jaquez [facility] Work Phone: Start: 11-30-2022 End: 11-30-2022 Patient encounter procedure DO Brad [facility] Start: 11-18-2022 End: 11-19-[address] TANISHA ARELLANO Facility:[facility] Start: 10-27-2022 End: 10-27-2022 ambulatory Yoko Helms Other [employer] Other Start: 10-27-2022 Office outpatient vi sit 25 minutes Yoko Helms [facility] Start: 10-26-2022 End: 10-26-2022 Patient encounter procedure DO [facility] Start: 10-26-2022 End: 10-26-2022 ambulatory Asad Valdivia [employer] Other Start: 10-26-2022 Office outpatient vi sit 15 minutes Asad Pollard [facility] Start: 10-23-2022 End: 10-23-2022 ambulatory Yoko Helms Other [employer] Other Start: 10-23-2022 Telephone encounter Yoko Helms [facility] Start: 10-22-2022 End: 10-22-2022 ambulatory Yoko Helms Other [employer] Other Start: 10-22-2022 Telephone encounter Yoko Helms [facility] Start: 10-19-2022 End: 10-19-2022 ambulatory Yoko Helms Other [employer] Other Start: 10-19-2022 Telephone encounter Yoko Helms [facility] Start: 10-07-2022 End: 10-07-2022 ambulatory Yoko Helms Other [employer] Other Start: 10-07-2022 Initial nursing faci lity care/day 35 minutes Yoko Helms [facility] Start: 10-03-2022 End: 10-05-2022 Evaluation and management of inpatient DR VAHE ALVES Facility: Start: 10-02-2022 End: 10-02-2022 ambulatory Yoko Helms Other [employer] Other Start: 10-02-2022 Telephone encounter Yoko Helms [facility] Start: 09-20-2022 End: 09-24-2022 Evaluation and management of inpatient Yoko Helms Facility:[facility] Start: 09-19-2022 End: 09-24-2022 Evaluation and management of inpatient DO Brad Harper Work Phone: [facility] Work Phone: Start: 09-08-2022 End: 09-09-[address] YOKO HELMS Facility:[facility] Start: 09-07-2022 Telephone encounter Oswaldo Vides danielito DDS Work Phone: [facility] Start: 09-05-2022 E.D. Visit Jessica Narayan [facility] Work Start: 09-04-2022 ambulatory Oswaldo Cal DDS Work Phone: [facility] Start: 09-04-2022 Letter encounter Joya. Wilkins DO Work Phone: [facility] Start: 09-04-2022 End: 09-05-2022 Emergency department patient visit IP DENTISTRY ADULT CONSULT Facility:[facility] Start: 09-03-2022 Emergency department patient visit YOKO HELMS Facility:[facility] Start: 09-03-2022 End: 09-05-2022 Evaluation and management of inpatient Nurys Read MD Work Phone: [facility] Start: 09-03-2022 End: 09-03-2022 E.D. Visit Pita WHEAT [facility] ork Comment on above: Trauma/complex Medic al Situation Start: 08-10-2022 End: 08-11-[address] YOKO HELMS Facility:[facility] Start: 07-29-2022 End: 07-30-[address] YOKO HELMS Facility:[facility] Start: 05-20-2022 End: 05-20-2022 ambulatory CODY Munson Facility:[facility] Start: 05-18-2022 End: 05-19-[address] DOCTOR HOOKER Facility:[facility] Start: 05-15-2022 End: 05-16-2022 ambulatory JAZMINE TREVINO Facility:[facility] Start: 05-15-2022 Encounter for other specified special examinations DR ZANA MAX [facility] Start: 05-13-2022 End: 05-14-[address] ZANA MAX Facility: Start: 05-13-2022 End: 05-14-2022 Encounter for other specified special examinations DR ZANA MAX Facility:[facility] Start: 04-22-2022 End: 04-22-2022 ambulatory Flower Olexa Other [employer] Other Start: 04-22-2022 Telephone encounter Flower Olexa [facility] Start: 04-21-2022 End: 04-22-2022 ambulatory FLOWER OLEXA [employer] Other Start: 04-21-2022 Office outpatient vi sit 25 minutes [facility] Start: 03-25-2022 End: 03-26-[address] TANISHA ARELLANO Facility: Start: 03-11-2022 End: 08-26-[address] ALBINA BROWER Facility: Start: 02-17-2022 End: 02-18-2022 ambulatory YOKO HELMS Facility:[facility] Start: 01-30-2022 End: 01-31-2022 ambulatory BRETT HEWITT Facility: Start: 01-13-2022 End: 01-14-2022 Evaluation and management of inpatient YOKO HELMS Facility:[facility] Start: 12-19-2021 End: 12-20-2021 ambulatory YOKO HELMS Facility:[facility] Start: 11-25-2021 End: 11-26-2021 ambulatory YOKO HELMS Facility:[facility] Start: 11-11-2021 End: 11-12-2021 ambulatory YOKO HELMS Facility:[facility] Start: 07-24-2021 End: 07-24-2021 ambulatory Flower Olexa Other [employer] Other Start: 07-24-2021 Postop follow up vis it related to original px Flower Olexa [facility] [place] Start: 06-10-2021 Postop follow up vis it related to original px Flower Olexa [facility] Cynthia Procedures Date Procedure Procedure Detail Performing Clinician Start: 11-30-2022 Plain X-ray of left hand DO Brad Harper Start: 10-26-2022 Plain X-ray of left hand DO Brad Harper Start: 09-23-2022 X-ray of right ankle DO Brad Harper [employer] Phone: Start: 09-23-2022 Magnetic resonance angiography of head without contrast DO Brad Harper Work Phone: Start: 09-22-2022 CT of head without contrast DO Brad Harper [employer] Phone: Start: 09-22-2022 Plain chest X-ray DO Flywheel jori Harper [employer] Phone: Start: 09-22-2022 Urine culture DO Brad Harper [employer] Phone: Start: 09-20-2022 Doppler ultrasonogra phy of bilateral carotid arteries DO Rbad Harper Start: 09-19-2022 Plain X-ray of left hand DO Brad Harper [employer] Phone: Start: 09-19-2022 CT cervical spine wi thout contrast DO Brad Harper [employer] Phone: Start: 09-19-2022 CT of facial bones w ithout contrast DO Brad Harper [employer] Phone: Start: 09-19-2022 CT of head without contrast DO Brad Harper [employer] Phone: Start: 09-19-2022 Plain X-ray of left hand DO Brad Harper [employer] Phone: Start: 09-19-2022 Plain X-ray of right hip DO Brad Harper [employer] Phone: Start: 09-19-2022 Plain X-ray of right shoulder DO Brad [employer] Phone: Start: 09-19-2022 X-ray of left ankle DO Brad Harper [employer] Phone: Start: 09-19-2022 X-ray of left knee DO S cristina Harper Work Phone: Start: 09-05-2022 End: 09-05-2022 Glucose blood reagent strip Brook Atassi DO Work Phone: Start: 09-04-2022 Glucose blood reagent strip Brook Atassi DO Work Phone: Start: 09-04-2022 Glucose blood reagent strip Brook Atassi DO Work Phone: Start: 09-04-2022 Glucose blood reagent strip Brook Atassi DO Work Phone: Start: 09-04-2022 COVID/INFLUENZA Jaziel Escobedo argmoses DO Work Phone: Start: 09-04-2022 Glucose blood reagent strip Nurys Read MD Work Phone: Start: 09-03-2022 End: 09-03-2022 Natriuretic peptide Tucker Bucio MD Work Phone: Start: 09-03-2022 Ct abdomen & pelvis w/contrast material Lana Avila MD Work Phone: Start: 09-03-2022 Ct angiography chest w/contrast/noncontrast Joya. Wilkins DO Work Phone: Start: 09-03-2022 Ct thoracic spine w/ o contrast material Lana Avila MD Work Phone: Start: 09-03-2022 Radiologic examinati on femur minimum 2 views Rubina Marinelli MD Work Phone: Start: 09-03-2022 CT NEURO IMAGE IMPORT Gabe Fisher MD Work Phone: Start: 09-03-2022 XRAY PELVIS IMAGE IMPORT Cinthya Fisher MD Work Phone: Start: 09-03-2022 Ecg routine ecg w/le ast 12 lds trcg only w/o i&r To Be Assigned Start: 09-03-2022 Radiologic exam ches t single view Lana Avila MD Work Phone: Start: 09-03-2022 Blood typing, ABO, R ho(D) and RBC antibody screening Lana Avila MD Work Phone: Start: 09-03-2022 End: 09-03-2022 Drug screen quantitative alcohols Lana Avila MD Work Phone: Start: 09-03-2022 End: 09-03-2022 Hemoglobin glycosylated a1c Jaziel wadsworth DO Work Phone: Start: 01-13-2022 Antibody screen JAZMINE TREVINO Comment on above: Performed By: #### [id number] #### [facility] [address] Plan of Treatment Date Care Activity Detail Author Start: 09-05-2023 End: 09-05-2023 Basic metabolic 2000 panel - Serum or Plasma [employer] Work Phone: Comment on above: 1 Occurrences starti ng 09/05/2022 until 09/05/2023 Start: 09-03-2023 Basic metabolic 2000 panel - Serum or Plasma Basic Metabolic Panel [facility] Start: 09-03-2023 [facility] Start: 03-04-2023 Hemoglobin A1c measurement Hemoglobin A1C [facility] Start: 09-23-2022 [facility] Start: 09-22-2022 Referral to neurologist [facility] Start: 09-20-2022 Doppler ultrasonogra phy of bilateral carotid arteries US carotid doppler BI [facility] Start: 09-20-2022 US.doppler Carotid arteries - bilateral [facility] Start: 09-20-2022 Hospital admission [facility] Start: 09-19-2022 Plain X-ray of left hand XR hand LT min 3V* [facility] Start: 09-19-2022 XR Hand - left GE 3 Views [facility] Start: 09-19-2022 CT cervical spine wi thout contrast CT cervical spine wo con [facility] Start: 09-19-2022 CT Cervical spine WO contrast [facility] Start: 09-19-2022 CT Facial bones WO contrast [facility] Start: 09-19-2022 CT of facial bones without contrast CT facial bones wo con [facility] Start: 09-19-2022 CT of head without contrast CT head/brain wo con [facility] Start: 09-19-2022 CT Unspecified body region WO contrast [facility] Start: 09-19-2022 Plain X-ray of left hand XR hand LT min 3V* [facility] Start: 09-19-2022 Plain X-ray of right hip XR hi p RT min 2V(w/wo pelvis)* [facility] Start: 09-19-2022 Plain X-ray of right shoulder XR shoulder RT min 2V* [facility] Start: 09-19-2022 X-ray of left ankle XR ankle LT min 3V* [facility] Start: 09-19-2022 X-ray of left knee XR knee LT 2V [facility] Start: 09-19-2022 XR Ankle - left GE 3 Views [facility] Start: 09-19-2022 XR Hand - left GE 3 Views [facility] Start: 09-19-2022 XR Hip - right 2 Views [facility] [facility] Start: 09-19-2022 XR Knee - left 2 Views [facility] Start: 09-19-2022 XR Shoulder - right Views [facility] Start: 09-19-2022 Bacteria identified in Urine by Culture Urine Culture [facility] Start: 09-19-2022 Reposition Left Metacarpal, External Approach Reposition Left Metacarpal, External Approach [facility] Start: 06-20-2022 Influenza vaccination Influenza Vacc ine (#1) [facility] Start: 10-21-2002 Annual wellness visit Annual W ellness Visit ([id number]) [facility] Start: 2001 Pneumococcal vaccination Pneum ococcal Vaccine(s) (65+ yrs) (1 - PCV) [facility] Start: 2001 Screening for osteoporosis Bone Densitometry [facility] Start: 1986 Shingles (RZV) Vacci ne (1 of 2) Shingles (RZV) Vaccine (1 of 2) [facility] Start: 1954 Tetanus + diphtheria + acellular pertussis vaccine (product) Tdap Booster [facility] Start: 1942 Pneumococcal vaccination Pneum ococcal Vaccine(s) (65+ yrs) (1 - PCV) [facility] Start: 05-02-1937 COVID-19 Vaccine (#1) COVID-19 Vacci ne (#1) [facility] Start: 1936 Diabetic retinal eye exam Eye Exam [facility] Start: 1936 Urine screening for protein Microalbumin [facility] Start: 1936 Diabetic foot examination Foot Exam [facility] Start: 1936 Ejection Fraction Ejection Fraction [facility] Patient referral [facility] Work Phone: Urnls dip stick/tabl et rgnt auto w/o microscopy URINALYSIS W/REFLEX CULTURE Lab STAT When Specimen Available/Needed for 1 Occurrences starting 09/04/2022 [facility] Work Phone: Comment on above: When Specimen Availa ble/Needed for 1 Occurrences starting 09/04/2022 Immunizations Immunization Date Immunization [facility] Hemoglobin A1C Oswaldo Mccall DDS Work Phone: [facility] 07-12-2021 COVID-19 Vaccine Pfi zer - Documentation Purposes Only Yoko Helms Other [employer] Other 05-28-2021 influenza virus vaccine, split virus (incl. purified surface antigen) Yoko Helms Other [employer] Other 11-21-2020 COVID-19 Vaccine Moderna - Documentation Purposes Only Yoko Helms Other [employer] Other 05-31-2018 influenza virus vaccine, split virus (incl. purified surface antigen) Yoko Helms Other [employer] Other Payers Date Payer Category Payer Self-pay 2001 Medicare [id number] 1959 Medicare [id number] 2.1 [id number] 1959 Unknown [id number] 2.1 [id number] 1936 Unknown [id number] 2.16.8 40.1.600354.3.579.2.647 1936 Unknown [id number] 2.16.8 40.1.996527.3.579.2.647 1936 Unknown [id number] 2.16.8 40.1.232686.3.579.2.647 1936 Unknown [id number] 2.16.8 40.1.003109.3.579.2.647 1936 Unknown [id number] 2.16.8 40.1.693130.3.579.2.647 1936 Unknown [id number] 2.16.8 40.1.692938.3.579.2.647 1936 Unknown [id number] 2.16. 840.1.085707.3.579.2.732 1936 Unknown [id number] 2.16. 840.1.980578.3.579.2.732 1936 Unknown [id number] 2.16. 840.1.690503.3.579.2.732 1936 Unknown [id number] 2.16. 840.1.682224.3.579.2.732 1936 Unknown [id number] 2.16. 840.1.862442.3.579.2.732 1936 Unknown [id number] 2.16. 840.1.436170.3.579.2.732 1936 Unknown [id number] 2.16.84 0.1.229589.3.579.2.593 1936 Unknown [id number] 2.16.84 0.1.781773.3.579.2.593 1936 Unknown [id number] 2.16.84 0.1.420347.3.579.2.593 1936 Unknown [id number] 2.16.84 0.1.359085.3.579.2.593 1936 Unknown [id number] 2.16.84 0.1.380326.3.579.2.593 1936 Unknown [id number] 2.16.84 0.1.486652.3.579.2.593 1936 Unknown [id number] 2.16.84 0.1.358993.3.579.2.593 1936 Unknown [id number] 2.16.84 0.1.152571.3.579.2.593 1936 Unknown [id number] 2.16.84 0.1.061232.3.579.2.593 1936 Unknown [id number] 2.16.84 0.1.619396.3.579.2.593 1936 Unknown [id number] 2.16.84 0.1.633066.3.579.2.593 1936 Unknown [id number] 2.16.84 0.1.662315.3.579.2.593 1936 Unknown [id number] 2.16.84 0.1.462118.3.579.2.593 1936 Unknown [id number] 2.16.84 0.1.664431.3.579.2.593 Unknown [id number] 2.16.8 40.1.680705.3.579.2.531 Unknown [id number] 2.16.8 40.1.527370.3.579.2.531 Unknown [id number] 2.16.8 40.1.158116.3.579.2.531 Social History Date Type Detail Facility Sex Assigned At [employer] Other Tobacco smoking status PAIS Tobacco smoking consumption unknown [facility] Start: 1935 Sex Assigned At [facility] on file [facility] Start: 09-04-2022 End: 09-23-2022 Tobacco smoking status NHIS Never smoked tobacco [facility] Start: 09-04-2022 Alcohol intake Lifetime non-d deborah (finding) [facility] Start: 08-25-2022 End: 09-04-2022 Exposure to SARS-CoV-2 (event) Not sure [facility] Work Phone: Start: 1936 Sex Assigned At Female F [facility] Medical Equipment Procedure Code Equipment Code Equipment Origin al Text Equipment Identifier Dates [id number] Start: 07-16-2022 Goals Date Patient Goal Desired Activity /State Functional Status Date Assessment Result Facility 09-24-2022 Functional status Patient is Pro gressing Toward [facility] Work Phone: Mental Status Date Assessment Result Facility 09-24-2022 Cognitive function Cognitive Sta tus Patient at Baseline [facility] Work Phone: Clinical Notes 06-10-2021 to 11-01-2023 Note Date & Type Note Facility 11-01-2023 Note [place] [facility] Subjective Eliz Hewitt is a 87 y.o. year old female patient being seen for 3 mo follow up CAD, CHF, pulmonary hypertension, and aortic valve stenosis. She is almost 2 years s/p TAVR. Says she's had a few episodes of brief paralysis. Denies chest pain but says she's always short of breath . Denies palpitations. 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, mild, without behavioral disturbance, psychotic disturbance, mood disturbance, and anxiety (CMS/HCC) Displaced fracture of base of fourth metacarpal bone, left hand, subsequent encounter for fracture with routine healing H/O aortic valve replacement History of falling Benign hypertensive cardiomyopathy with heart failure (CMS/HCC) Kidney disease Muscle weakness (generalized) Myocardial infarction type 2 (CMS/HCC) Pulmonary hypertension (CMS/HCC) Non-rheumatic mitral valve stenosis Rhabdomyolysis Severe aortic stenosis Syncope Tachycardia, unspecified Diabetes mellitus (CMS/HCC) Type 2 diabetes mellitus with diabetic chronic kidney disease (CMS/HCC) Unspecified abnormalities of gait and mobility Unspecified bacterial pneumonia Injury of humerus Left humeral fracture Chronic kidney disease, unspecified CKD (chronic kidney disease) stage 3, GFR 30-59 ml/min (CMS/HCC) Fall Foot drop, bilateral Family History Family history unknown: Yes Social History Tobacco Use Smoking status: Never Smokeless tobacco: Never Substance Use Topics Alcohol use: Never JULIO CESAR [place] is seen in follow-up. She is an 86-year-old woman with prior history of bioprosthetic aortic valve replacement [21 mm C-E Magna pericardial valve] in 10/10/2008 due to severe aortic valve regurgitation with some degree of aortic valve stenosis. At that time her coronary angiogram showed no evidence of significant coronary disease. On 09/18/2021 while traveling in [place] she was admitted to the hospital with worsening symptoms of shortness of breath. She was found to have acute diastolic heart failure secondary to her valvular disease. She had elevated BNP. Her echocardiogram showed a mean gradient of 24 mm across the aortic valve bioprosthesis and a mean gradient of 13 mmHg across the mitral valve. She underwent diuresis and improved clinically and was discharged. Surgical intervention was discussed at that time. After last visit of 11/03/2021 I proceeded with a TRISH and cardiac catheterization. The TRISH demonstrated severe stenosis of the aortic valve bioprosthesis. There was evidence of severe mitral valve stenosis and moderate mitral valve regurgitation. She was found to have mild three-vessel coronary artery disease, moderate pulmonary hypertension and moderately elevated filling pressures. Iliac arteries were patent. Following above evaluation she was recommended TAVR for her aortic valve bioprosthesis failure and underwent TAVR on 01/13/2022 using a 20 mm [place] ENOCH ultra valve. On 05/15/2022 she underwent Open reduction and internal fixation of left proximal humerus fracture nonunion. She did well with that. She is still recovering. In May 2023 her echocardiogram showed evidence of severe elevation of right-sided pressures with an RVSP of 114 mmHg in addition she had previously known severe 80 mitral stenosis with the moderate to severe mitral regurgitation and tricuspid and pulmonic regurgitation. She underwent right heart catheterization that showed combined pre and postcapillary pulmonary hypertension. There was partial vasoreactivity to adenosine. She was started on sildenafil 20 mg 3 times daily. Today she says she still has dypsnea on exertion, NYHA class II. She is not exerting herself too much. She has bilateral lower extremity edema. No palpitations. She also reports to have had a couple of episodes of near complete paralysis of the heart or her body that happened while she was sitting. Episodes happened in the past few weeks. They resolved spontaneously. She did not lose consciousness. Review of Systems HENT: Positive for hearing loss. Cardiovascular: Positive for dyspnea on exertion and leg swelling. Respiratory: Positive for shortness of breath. Musculoskeletal: Positive for joint pain and muscle weakness. Neurological: Positive for brief paralysis, light-headedness, numbness and weakness. All other systems reviewed and are negative. Objective Visit Vitals BP 150/64 (BP Location: Right arm, Patient Posit (more content not included)... [facility] 09-06-2023 Evaluation note Encounter Date Diagnosis Assessment Notes Aug, Type 2 diabetes mellitus with diabetic chronic kidney disease (ICD-10 - E11.22) diabetic eye exam annually Aug, Longstanding persistent atrial fibrillation (ICD-10 - I48.11) Atrial fibrillation is currently stable at this time. Keep followup appt w Cardiology. Not limited in physical activity due to symptoms. Will continue to monitor. Aug, Systolic murmur (ICD-10 - R01.1) as above [employer] Other 12-18-2023 Evaluation note* Encounter Date Diagnosis Assessment Notes Treatment Notes Treatment Clinical Notes Aug, Type 2 diabetes mellitus with diabetic chronic kidney disease (ICD-10 - E11.22) reviewed labs and home glucose readings. Kidney function is stable. Glucose readings are quite good on present medications. Continue present doses. Aug, Longstanding persistent atrial fibrillation (ICD-10 - I48.11) Atrial fibrillation is currently stable at this time. Keep followup appt w Cardiology. Not limited in physical activity due to symptoms. Will continue to monitor. Aug, Systolic murmur (ICD-10 - R01.1) as above [employer] Other [id number] NoteCoronary artery disease is stable [facility]11-22-2023 [facility] Notes/p bioprosthetic aortic valve replacement in 2008 with a 21 mm C-E Magna pericardial valve -s/p valve in valve TAVR using a 20 mm Enoch Ultra S3 transcatheter heart valve on 01/13/22 [facility]23 NoteUTP CARDIOLOGY PROGRESS NOTE HPI: Eliz Hewitt is a 87 y.o. female here for routine f/U HPI Presents today for routine f/U for known Pulm HTN, Combined Heart failure, CAD s/p ME, HTN, and HPL Aortic valve stenosis-s/p bioprosthetic aortic valve replacement in 2008 with a 21 mm C-E Magna pericardial valve -s/p valve in valve TAVR using a 20 mm Enoch Ultra S3 transcatheter heart valve on 01/13/22, Severe MV stenosis, Pulm HTN, Combined Heart failure. Review of Systems Visit Vitals BP (!) 110/43 (BP Location: Left arm, Patient Position: Sitting, BP Cuff Size: Adult) Pulse 58 Resp 11 Ht 1.6 m (5' 3 ) Wt 64 kg (141 lb) SpO2 94% BMI 24.98 kg/m??? OB Status Postmenopausal Smoking Status Never BSA 1.69 m??? Allergies Allergen Reactions Codeine Hives Hydrocodone-Acetaminophen Hydroxychloroquine GI intolerance Sulfamethoxazole-Trimethoprim Hives Medications: Current Outpatient Medications on File Prior to Visit Medication Sig Dispense Refill aspirin 81 mg EC tablet TAKE 1 TABLET BY MOUTH IN THE MORNING 90 tablet 3 Basaglar KwikPen U-100 Insulin 100 unit/mL (3 mL) injection pen dapagliflozin propanediol (Farxiga) 10 mg Take 1 tablet (10 mg) by mouth in the morning. 30 tablet 11 furosemide (Lasix) 20 mg tablet TAKE 1 TABLET BY MOUTH EVERY DAY IN THE MORNING 90 tablet 3 insulin detemir (Levemir U-100 Insulin) 100 unit/mL injection Levemir U-100 Insulin 100 unit/mL subcutaneous solution INJECT 35 UNITS SUBCUTANEOUSLY ONCE A DAY metoprolol succinate XL (Toprol-XL) 25 mg 24 hr tablet Take 1 tablet (25 mg) by mouth in the morning. 90 tablet 3 potassium chloride CR (K-Tab) 20 mEq ER tablet TAKE 1 TABLET BY MOUTH EVERY DAY 90 tablet 3 sildenafil (Revatio) 20 mg tablet Take 1 tablet (20 mg) by mouth in the morning, at noon, and at bedtime. Please hold Amlodipine if SBP <110, Call clinic for further instructions. 270 tablet 3 sodium bicarbonate 650 mg tablet Take 2 tablets (1,300 mg) by mouth in the morning and at bedtime. 120 tablet 0 [DISCONTINUED] amLODIPine (Norvasc) 10 mg tablet Take 10 mg by mouth in the morning. [DISCONTINUED] furosemide (Lasix) 20 mg tablet Take 1 tablet (20 mg) by mouth in the morning. 90 tablet 3 [DISCONTINUED] potassium chloride CR (K-Tab) 20 mEq ER tablet Take 20 mEq by mouth in the morning. No current facility-administered medications on file prior to visit. Physical Exam: Constitutional: Appearance: Normal appearance. Without apparent distress, chronically ill HENT: Head: Normocephalic and atraumatic. Nose: Nose normal. Mouth/Throat: Mouth: Mucous membranes are moist. Eyes: Extraocular Movements: Extraocular movements intact. Conjunctiva/sclera: Conjunctivae normal. Neck: Vascular: No JVD. Cardiovascular: Rate and Rhythm: Normal rate and regular rhythm. Pulses: Dorsalis pedis pulses are 3 on the right side and 3on the left side. Posterior tibial pulses are 3 on the right side and 3 on the left side. Heart sounds: RUSB systolic murmur 3/6, S1 normal and S2 normal. Pulmonary: Effort: Pulmonary effort is normal. Breath sounds: Normal breath sounds. Abdominal: General: Bowel sounds are normal. Palpations: Abdomen is soft. Musculoskeletal: General: Normal range of motion. Cervical back: Normal range of motion. Right lower leg: No edema. Left lower leg: No edema. Skin: General: Skin is warm and dry. Capillary Refill: Capillary refill takes less than 2 seconds. Neurological: General: No focal deficit present. Mental Status: She is alert and oriented to person, place, and time. Psychiatric: Mood and Affect: Mood normal. Behavior: Behavior normal. Thought Content: Thought content normal. Judgment: Judgment normal. Labs: 06/04/23 CBC normal Last lab values have been reviewed CV Testing: EKG today sinus rhythm with 1st degree heart block- otherwise normal 06/02/23 Echo 07/15/23 RHC Hemodynamic Data: RA: 2 RV: 75/0, 4 PA: 69/22 (42) PCWP: 19 CO: 4.21 CI: 2.5 O2 Sat: PA sat: 61%, AO sat: 95% BP: 133/49 (89) TP PVR: 5.5 Wood units Post Adenosine PA pressure: 56/17 (34) Impression/Findings: Mild elevation of left filling pressures. Normal right filling pressures. severe pulmonary hypertension. Reduced cardiac output and cardiac index. Uncontrolled systemic hypertension. Findings are consistent with combined pre- and post-capillary pulmonary hypertension. Partial pulmonary vasoreactivity to adenosine. Plan: The patient is already maintained on amlodipine 10 mg daily. Therefore we will escalate therapy to add sildenafil 20 mg three times daily. Continue current diuretic therapy. Follow-up in cardiology clinic. Tanisha Arellano MD 01/14/[address] Chest 08/2022 FINDINGS: Exam Quality: Overall exam quality is satisfactory. Pulmonary arterial enhancement is optimal, the breath hold is suboptimal, and there are no significant artifact (more content not included)...[facility]11-22-2023 NotePt recently was initiated on Sildenafil s/p recent RHC with vasoreactivity study Continue sildenafil- Norvasc was dc'd r/t hypotension and near syncope. Overall pt states she feels better, reports WILKES but states this is improved since RHC. [facility]11-22-2023 NoteNYHC III C, currently euvolemic and without exacerbation Continue GDMT-ASA, farxiga, toprol, Diuretic therapy- lasix Monitor daily weights, I&O, fluid restriction 1.5-2L/day, renal function and electrolytesUnLancaster Municipal Hospital11-22-2023 NoteCoronary artery disease is stable Continue GDMT-ASA, toprol continue risk factor modifications- heart healthy diet, regular exercise as tolerated and continue all medications.[facility] 08-11-2023 NoteHTn is well controlled 110/43 Continue all meds- norvasc was DCd after initiation of Sildenafil for Pulm HTN and noted hypotension and lightheadedness.[facility] 07-15-2023 NotePatient: Eliz Hewitt Procedure Information Date/Time: 07/15/23929 Procedure: Right heart cath - Severely elevated RVSP- Pulm HTN, HFrEF, may need vasoreactivity study Location: [facility] [employer] 3 / [facility] (Cath) Providers: Tanisha Arellano MD Clinical information reviewed: Allergies Meds OB Status Physical Exam Airway Mallampati: II TM distance: >3 FB Neck ROM: full Cardiovascular Rhythm: regular Rate: normal Dental Pulmonary Abdominal Anesthesia Plan ASA 3 other Anesthetic plan and risks discussed with patient. Use of blood products discussed with patient who consented to blood products. Additional Equipment RequestsUnLancaster Municipal Hospital09-22-[address] Arellano and Ana Del Angel - have patient increased lasix to 40mg bid x3 days and return to baseline dose of 40mg daily. Have BMP next week. Patient informed. Order faxed to [facility]09-18-2023 Note NYHC III- Assessment patient does not appear currently fluid overloaded or any acute exacerbation, but she is currently up 8 pounds since January, 2+ edema bilateral lower extremities shortness of breath that is slightly worse than previously with exertion. She denies orthopnea and states she actually is able to put her head of bed down a bit about two have 2 weeks ago. Continue GDMT- Aspirin, Toprol, Lasix 40 mg twice daily-Diuretic therapy, will add farxiga to regime and hopefully this is affordable for her. Monitor daily weights, I&O, fluid restriction 1.5-2L/day, renal function and electrolytes Recent labs showed worsening renal function with a BUN of 62 creatinine 1.97, pro BNP greater than 3200. Echo was reviewed with Dr Arellano and will plan for RHC with possible vasoreactivity study to assess rt sided pressures, pulm HTN, and management forward May benefit from nephrology referralUnLancaster Municipal Hospital 06-07-2023 NotestableUnLancaster [facility] Hospital09-18-2023 NotePatient with noted worsening right-sided pressures with RVSP of 114, she does admit some worsening shortness of breath with exertion but denies orthopnea or shortness of breath at rest. Of note she has gained about 8 pounds since her last visit in. We will discuss with Dr. Arellano further plan of care currently she is scheduled tentatively for right heart cath with possible vasoreactivity study end of June Dr. Arellano.[facility]09-18-2023 Note prior history of bioprosthetic aortic valve replacement [21 mm C-E Magna pericardial valve] in 10/10/2008 Continue toprol and remains on lasix diuresisUnLancaster Municipal Hospital 06-07-2023 NoteUTP CARDIOLOGY PROGRESS NOTE HPI: Eliz Hewitt is a 87 y.o. female here for Coronary Artery Disease, Congestive Heart Failure, Valve Disorder, and Hypertension Aortic valve stenosis-s/p bioprosthetic aortic valve replacement in 2008 with a 21 mm C-E Magna pericardial valve -s/p valve in valve TAVR using a 20 mm Enoch Ultra S3 transcatheter heart valve on 01/13/22, Severe MV stenosis, Pulm HTN, Combined Heart failure. HPI 87 yo female presents to clinic for echocardiogram f/U. She presents today with her son. States that overall she feels OK and admits some increased SOB with exertion, denied SOB at rest or orthopnea. States that her son recently lowered the head of her bed, because I keep sliding down in bed at night. States that with her lasix she is urinating all the time- just like usual. She walked into clinic today without having to stop until she reached the check in window from the parking lot. Denied any recent illness, fever, chills, N/V/D. Review of Systems Constitutional: Negative. Respiratory: Positive for shortness of breath. Cardiovascular: Positive for leg swelling. Neurological: Negative. All other systems reviewed and are negative. Visit Vitals BP 140/79 (BP Location: Right arm, Patient Position: Sitting) Pulse 62 Ht 1.6 m (5' 3 ) Wt 65.3 kg (144 lb) SpO2 95% BMI 25.51 kg/m??? Smoking Status Never BSA 1.7 m??? Allergies Allergen Reactions Codeine Hives Hydrocodone-Acetaminophen Hydroxychloroquine GI intolerance Sulfamethoxazole-Trimethoprim Hives Medications: Current Outpatient Medications on File Prior to Visit Medication Sig Dispense Refill amLODIPine (Norvasc) 10 mg tablet Take 10 mg by mouth in the morning. aspirin 81 mg EC tablet TAKE 1 TABLET BY MOUTH IN THE MORNING 90 tablet 3 furosemide (Lasix) 20 mg tablet Take 1 tablet (20 mg) by mouth in the morning. (Patient taking differently: Take 40 mg by mouth in the morning and at bedtime.) 90 tablet 3 insulin detemir (Levemir U-100 Insulin) 100 unit/mL injection Levemir U-100 Insulin 100 unit/mL subcutaneous solution INJECT 35 UNITS SUBCUTANEOUSLY ONCE A DAY metoprolol succinate XL (Toprol-XL) 25 mg 24 hr tablet Take 1 tablet (25 mg) by mouth in the morning. 90 tablet 3 potassium chloride CR (K-Tab) 20 mEq ER tablet Take 20 mEq by mouth in the morning. sodium bicarbonate 650 mg tablet Take 1,300 tablets by mouth in the morning and at bedtime. No current facility-administered medications on file prior to visit. Physical Exam: Constitutional: Appearance: Normal appearance. Without apparent distress, chronically ill HENT: Head: Normocephalic and atraumatic. Nose: Nose normal. Mouth/Throat: Mouth: Mucous membranes are moist. Eyes: Extraocular Movements: Extraocular movements intact. Conjunctiva/sclera: Conjunctivae normal. Neck: Vascular: No JVD. Cardiovascular: Rate and Rhythm: Normal rate and regular rhythm. Pulses: Dorsalis pedis pulses are 3 on the right side and 3on the left side. Posterior tibial pulses are 3 on the right side and 3 on the left side. Heart sounds: Normal heart sounds, S1 normal and S2 normal. Pulmonary: Effort: Pulmonary effort is normal. Breath sounds: Normal breath sounds. No rales, rhonchi or wheezes Abdominal: General: Bowel sounds are normal. Palpations: Abdomen is soft. Musculoskeletal: General: Normal range of motion. Cervical back: Normal range of motion. Right lower le+ pitting edema. Left lower le+ pitting edema. Skin: General: Skin is warm and dry. Capillary Refill: Capillary refill takes less than 2 seconds. Neurological: General: No focal deficit present. Mental Status: She is alert and oriented to person, place, and time. Psychiatric: Mood and Affect: Mood normal. Behavior: Behavior normal. Thought Content: Thought content normal. Judgment: Judgment normal. Labs: 06/04/23 BUN 62, Cr 1.97, K+ 4.8 LFT normal Pro BNP 3267 CBC stable CBC stable- Hgb 10.8 NA 140, K+ 4.4, BUN 47, Cr 1.49- renal function stable for her A1c 5.7- normal Last lab values have been reviewed CV Testin06/02/23 TTE 01/14/[address] Chest 08/2022 FINDINGS: Exam Quality: Overall exam quality is satisfactory. Pulmonary arterial enhancement is optimal, the breath hold is suboptimal, and there are no significant artifacts impacting image quality. Pulmonary Arteries: There are no filling defects within the pulmonary arterial system to suggest pulmonary embolus. Cardiovasculature: The heart is normal in size. Atherosclerotic calcifications are present within the coronary arteries. Atherosclerotic calcification of the thoracic aorta. Mitral annular calcifications. Aortic valve replacement. Enlarged main pulmonary artery measuring up to 3.5 cm consistent with pulmonary hypertension. Mediastinum/Pericardium: Unremarkable Pleura: Unremarkable Central Airways: Widely patent. Lungs: (more content not included)...[facility] 06-07-2023 NotePatient here for follow up echo, labs and CXR. Review of Systems HENT: Positive for hearing loss. Cardiovascular: Positive for dyspnea on exertion and leg swelling. Musculoskeletal: Positive for joint pain. Neurological: Positive for numbness. All other systems reviewed and are negative.[facility] 06-07-2023 Evaluation note* Encounter Date Diagnosis Assessment Notes Treatment Notes Treatment Clinical Notes May, Left ear impacted cerumen (ICD-10 - H61.22) Cerumen removed w lighted tool and forceps- no water or irrigation. Large amount removed - pt tolerated well. Great improvement in hearing. [employer] Other 09-15-20[address] Adan reviewed echocardiogram and pt has severely elevated Rt sided pressures. Staff to call pt and inquire about how she is feeling today, notifiy her to come get labs done today or tomorrow for CBC, CMP, BNP and will plan for f/U in cardiology clinic Wednesday with myself and plan for RHC and possible admission to [facility] for aggressive IV diuresis. Praveena Del Angel PLATE DEVELOPER Division of Cardiology, [facility]- [phone] Pager- [phone] Email- [email or web address] Evaluation note* Encounter Date Diagnosis Assessment Notes Treatment Notes Treatment Clinical Notes May, Type 2 diabetes mellitus with diabetic chronic kidney disease (ICD-10 - E11.22) Decrease Basaglar to 25units. Reviewed home readings often less than 70. Pt notes symptoms of feeling jittery at times. May, Longstanding persistent atrial fibrillation (ICD-10 - I48.11) Pt does not have a followup w [facility] Cardio - would benefit from a checkup due to dyspnea and assessment of her increasingly prominent murmur May, Systolic murmur (ICD-10 - R01.1) as above. May, Impacted cerumen, bilateral (ICD-10 - H61.23) easily removed cerumen with device, not water pik from R ear. Unable to comfortably remove cerumen from L canal. Advised debrox and return if continues to have issue further treated. [employer] Other 05-12-2023 Notebioprosthetic aortic valve replacement in 2008 with a 21 mm C-E Magna pericardial valve -s/p valve in valve TAVR using a 20 mm Enoch Ultra S3 transcatheter heart valve on 01/13/22 Reviewed echocardiogram with pt and son, Aortic valve with normal doppler flows Repeat Echocardiogram in 6 months and f[facility]u [facility]Un[facility]-12-2023 NoteStable, no concerning symptoms at this time [facility]05-12-2023 NoteContinue to monitor with routine echocardiogram. D/W pt and son to call office for increased shortness of breath, palpitations, leg swelling, chest pain or any concerning symptoms and they voiced understandingUnLancaster Municipal Hospital05-12-2023 NoteNYHC II- currently without exacerbation, fairly euvolemic Continue GDMT- ASA, toprol and lasix Diuretic therapy- lasix Monitor daily weights, I&O, fluid restriction 1.5-2L/day, renal function and electrolytes-[facility]05-12-2023 NoteCoronary artery disease is stable without any concerning symptoms Continue GDMT- ASA, toprolUnLancaster [facility] Hospital05-12-2023 NoteUTP CARDIOLOGY PROGRESS NOTE HPI: Eliz Hewitt is a 87 y.o. female here for Coronary Artery Disease, Congestive Heart Failure, Valve Disorder, and Hypertension Aortic valve stenosis-s/p bioprosthetic aortic valve replacement in 2008 with a 21 mm C-E Magna pericardial valve -s/p valve in valve TAVR using a 20 mm Enoch Ultra S3 transcatheter heart valve on 01/13/22, Severe MV stenosis, Pulm HTN, Combined Heart failure. She stills lives at home, and 1 son now lives with her. She remains independent with ADLs. Patient here for 6 mo follow up (1 year s/p TAVR) aortic valve stenosis, hypertension, CAD, and chronic diastolic heart failure. She was taken to [facility] [place] [place] after falling at the grocery store in Aug 2022. She hit the front of her face. Denies lightheadedness and syncope. Then in Sep 2022 she fell out of her bed and was taken to [facility] ED. She then did rehab at the [facility]. She has been home for the past 3+ months. She had echo 01/14/2023. Denies chest pain, palpitations, and lightheadedeness. WILKES remains unchanged. Review of Systems Cardiovascular: Positive for dyspnea on exertion and leg swelling. Musculoskeletal: Positive for joint pain. Neurological: Positive for numbness. All other systems reviewed and are negative. Visit Vitals BP 105/64 (BP Location: Left arm, Patient Position: Sitting) Pulse 64 Ht 1.6 m (5' 3 ) Wt 61.7 kg (136 lb) SpO2 97% BMI 24.09 kg/m??? Smoking Status Never BSA 1.66 m??? Allergies Allergen Reactions Codeine Hives Hydrocodone-Acetaminophen Hydroxychloroquine GI intolerance Sulfamethoxazole-Trimethoprim Hives Medications: Current Outpatient Medications on File Prior to Visit Medication Sig Dispense Refill aspirin 81 mg EC tablet Take 1 tablet (81 mg) by mouth in the morning. 90 tablet 3 furosemide (Lasix) 20 mg tablet Take 1 tablet (20 mg) by mouth in the morning. (Patient taking differently: Take 40 mg by mouth in the morning and at bedtime.) 90 tablet 3 insulin detemir (Levemir U-100 Insulin) 100 unit/mL injection Levemir U-100 Insulin 100 unit/mL subcutaneous solution INJECT 35 UNITS SUBCUTANEOUSLY ONCE A DAY metoprolol succinate XL (Toprol-XL) 25 mg 24 hr tablet Take 1 tablet (25 mg) by mouth in the morning. 90 tablet 3 sodium bicarbonate 650 mg tablet every 12 (twelve) hours. amLODIPine (Norvasc) 10 mg tablet Take 10 mg by mouth in the morning. No current facility-administered medications on file prior to visit. Physical Exam: Constitutional: Appearance: Normal appearance. Without apparent distress, Chronically ill HENT: Head: Normocephalic and atraumatic. Nose: Nose normal. Mouth/Throat: Mouth: Mucous membranes are moist. Eyes: Extraocular Movements: Extraocular movements intact. Conjunctiva/sclera: Conjunctivae normal. Neck: Vascular: No JVD. Cardiovascular: Rate and Rhythm: Normal rate and regular rhythm. Pulses: Dorsalis pedis pulses are 2 on the right side and 2on the left side. Posterior tibial pulses are 2 on the right side and 2 on the left side. Heart sounds: RUSB systolic Murmur 2/6, S1 normal and S2 normal. Pulmonary: Effort: Pulmonary effort is normal. Breath sounds: Normal breath sounds. Abdominal: General: Bowel sounds are normal. Palpations: Abdomen is soft. Musculoskeletal: General: Normal range of motion. Cervical back: Normal range of motion. Right lower le+ edema. Left lower le+ edema. Skin: General: Skin is warm and dry. Capillary Refill: Capillary refill takes less than 2 seconds. Neurological: General: No focal deficit present. Mental Status: She is alert and oriented to person, place, and time. Psychiatric: Mood and Affect: Mood normal. Behavior: Behavior normal. Thought Content: Thought content normal. Judgment: Judgment normal. Labs: Last lab values have been reviewed CV Testin01/14/23 Echocardiogram 02/17/22 Echo [id number] Assessment/Plan: Atherosclerotic heart disease of creek coronary artery without angina pectoris Coronary artery disease is stable without any concerning symptoms Continue GDMT- ASA, toprol Chronic combined systolic and diastolic heart failure, NYHA class 2 (CMS/HCC) [facility] II- currently without exacerbation, fairly euvolemic Continue GDMT- ASA, toprol and lasix Diuretic therapy- lasix Monitor daily weights, I&O, fluid restriction 1.5-2L/day, renal function and electrolytes- Non-rheumatic mitral valve stenosis Continue to monitor with routine echocardiogram. D/W pt and son to call office for increased shortness of breath, palpitations, leg swelling, chest pain or any concerning symptoms and they voiced understanding Pulmonary hypertension (CMS/HCC) Stable, no concerning symptoms at this time Severe aortic stenosis bioprosthetic aortic valve replacement in 2008 with a 21 mm C-E Magna pericardial valve -s/p valve in valve TAVR using a 20 mm Enoch Ultra S3 transcatheter heart ilana (more content not included)...[facility]05-12-2023 Note Patient here for 6 mo follow up (1 year s/p TAVR) aortic valve stenosis, hypertension, CAD, and chronic diastolic heart failure. She was taken to [facility] [place] [place] after falling at the grocery store in Aug 2022. She hit the front of her face. Denies lightheadedness and syncope. Then in Sep 2022 she fell out of her bed and was taken to [facility] ED. She then did rehab at the [facility]. She has been home for the past 3+ months. She had echo 01/14/2023. Denies chest pain, palpitations, and lightheadedeness. WILKES remains unchanged. Review of Systems Cardiovascular: Positive for dyspnea on exertion and leg swelling. Musculoskeletal: Positive for joint pain. Neurological: Positive for numbness. All other systems reviewed and are negative.[facility] 01-25-2023 Evaluation note* Encounter Date Diagnosis Assessment Notes Treatment Notes Treatment Clinical Notes January, Type 2 diabetes mellitus with diabetic chronic kidney disease (ICD-10 - E11.22) Refilled similar insulins - trial of different brands due to formulary change Check labs this summerJanuary, Chronic kidney disease, stage 3b (ICD-10 - N18.32) Due for lab recheck January, Anemia in chronic kidney disease (ICD-10 - D63.1) Monitor lab - chronic problem [employer] Other 03-13-2023 Evaluation note* Encounter Date Diagnosis Assessment Notes Treatment Notes Treatment Clinical Notes Nov, 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 Her x-rays have been reviewed with her at bedside. Her physical exam has been reviewed. She has had good improvement since our last visit. She has no pain today has full range of motion of the finger. Her x-rays appear to be improving with what appears to be a fused fracture site. At this point I will allow her to increase activities as tolerated. She can follow-up as needed from now. Radiographs reviewed with patient today. Instructed patient to continue to progress activity as tolerated. Instructed to call with any questions or concerns [employer] Other 02-07-2023 Evaluation note* Encounter Date Diagnosis Assessment Notes Treatment Notes Treatment Clinical Notes Oct, Anemia in chronic kidney disease (ICD-10 - D63.1) Will monitor Hgb and compare when last in hospital. Oct, Chronic kidney disease, stage 3b (ICD-10 - N18.32) Due for lab. Has followup appt later in the spring with her specialists. Oct, Type 2 diabetes mellitus with diabetic chronic kidney disease (ICD-10 - E11.22) overdue for labs. does check glucose at home. will monitor. [facility] specialist was asking specificially about A1C. 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 Patient is to increase activities with the left hand. Patient will f/u in 1 month with X-rays. Oct, Other Eliz returns with right fourth metacarpal fracture. At this juncture we have discussed the findings and diagnosis as well as personally reviewed appropriate imaging and performed interpretation of related testing and examination with the patient in office today. At this point she can start peter taping and work on full range of motion. Continue nonweightbearing to the hand. Return in 3 to 4 weeks for repeat x-rays. The patient has been involved in our cooperative treatment plan and agrees to move forward with treatment at this time. [employer] Other 01-18-2023 Evaluation note* Encounter Date Diagnosis Assessment Notes Treatment Notes Treatment Clinical Notes Sep, Myocardial infarctio n type 2 (ICD-10 - I21.A1) Reviewed medicines and monitoring labs. Sep, Anemia in chronic kidney disease (ICD-10 - D63.1) Monitored labs. Has follow-up with nephrology. Sep, Chronic kidney disease, stage 3b (ICD-10 - N18.32) Improved since hospitalization We will continue to monitor labs Sep, Type 2 diabetes mellitus with diabetic chronic kidney disease (ICD-10 - E11.22) Improved since recent hospitalization reviewed glucose levels. Sep, custodial (current) use of insulin (ICD-10 - Z79.4) Sep, Atherosclerosis of creek coronary artery of creek heart without angina pectoris (ICD-10 - I25.10) Has follow-up with cardiology scheduled. [employer] Other 01-04-2023 Discharge summary Author Donn Joseph [facility] September 23, 2022 4:20pm Note Date/Time September 23, 2022 4: 20pm [facility] [address] [place] [address] Discharge Summary Signed Patient: Eliz Hewitt MR#: [id number] : 1935 Acct:[id number] Age/Sex: 86 / F Adm Date: 2 Loc: Room: [address] [place] [address]: Donn Joseph DO Copies to: MD Donn Yoon, DO~ Providers Date of Discharge: 09/23/22 Discharging Provider: Donn Joseph Primary Care Provider: Yoko Helms Consults: 09/20/22 02:10 Consult to Dietitian Routine 09/20/22 12:17 Consult to Occupational Therapy Routine Consult to Physical Therapy Routine 09/22/22 19:07 Consult to Neurology Routine Discharge Diagnosis (1) Fall: (2) Foot drop, bilateral: Final Diagnosis Final Discharge Diagnosis: In addition to the above diagnoses: 3. Elevated CK level 4. Type II myocardial infarction 5. Diabetes mellitus 6. Peripheral edema Summary Hospital Course Hospital course: The patient is an 86-year-old female presented to the emergency department on 09/20/2022. She had been found out at home for an unknown amount of time after experiencing a fall. It was unclear exactly if the patient had lost consciousness. She was admitted for further evaluation and treatment. She had mild troponin elevation which down trended and EKG showed no evidence of ischemia. She had a slight elevation in her CK level. She was provided IV fluids for possible rhabdomyolysis and CK level down trended. Patient has experienced overall functional decline and atrophy. She worked with PT/OT who recommended shelter facility. The day prior to her discharge she developed some mild tachypnea and somnolence. Also was noted to be edematous. BNP was elevated and she was provided IV Lasix. She is breathing much easier now and will be discharged to shelter facility. She did have some bilateral lower extremity weakness for which neurology was consulted. Her work-up was largely benign. She can consider EMG testing for this as an outpatient however at this time no further work-up is required. She will be discharged today in hemodynamically stable condition to shelter facility. Physical Examination: GENERAL APPEARANCE: Alert, resting comfortably HEENT: NCAT, MMM NECK: Neck soft w/o masses, no JVD CARDIAC: Normal S1 and S2. No S3, S4 or murmurs. LUNGS: Clear to auscultation bilaterally. no wheeze/rhonchi/rales ABDOMEN: Positive bowel sounds. Soft, nontender. No guarding or signs of an acute abdomen MUSCULOSKELETAL: No joint erythema or tenderness. EXTREMITIES: Mild pitting edema bilateral lower extremities.? Painful foot drop right and left foot also noted PSYCHIATRIC: Appropriate mood and affect 35 minutes were spent coordinating the discharge of this patient Time Spent with Patient Time spent providing/coordinating discharge services (# min): 35 Diagnostic Studies Completed and Pending Studies Pending studies at discharge: 09/20/22 12:28 US carotid doppler BI Routine 09/22/22 16:20 Urine Culture Stat 09/23/22 09:14 EEG awake & asleep Routine Preliminary micro results at discharge 09/22/22 16:20 Urine Culture - Preliminary Urine - [facility] Catheter [facility] Labs on day of discharge: 09/23/22 12:00: POC Glucose 139 09/23/22 10:47: Vitamin B12 545, Folate 9.7, TSH 3rd Generation 2.54 09/23/22 08:35: POC Glucose 143, POC Glucose Comment Glu2: cleaned meter 09/22/22 21:04: POC Glucose 237 09/22/22 17:24: Sample Site Right radial, ABG pH 7.50 H, ABG pCO2 28.6 L*, ABG pO2 61.9 L, ABG HCO3 21.8 L, ABG Total CO2 22.7 L, ABG O2 Saturation 93.6 L, ABGO2 Content 6.0 L, ABG Base Excess -0.7, FiO2 21, Critical Value 09/22/22 16:50: POC Glucose 231, POC Glucose Comment Glu2: cleaned meter 09/22/22 16:30: B-Natriuretic Peptide 3128.0 H 09/22/22 16:30: Lactic Acid 1.0 09/22/22 16:30: PHA Creatinine Clear 34.48, Sodium 131 L, Potassium 3.6, Chloride 102, Carbon Dioxide 20.0 L, Anion Gap 12.6, BUN 26 H, Creatinine 1.03, Est GFR ( Amer) > 60, Est GFR (Non-Af Amer) 51, Glucose 232 H, Calcium 7.9 L, Total Bilirubin 0.5, AST 24, ALT 17, Alkaline Phosphatase 77, Total Protein 5.8 L, Albumin 2.4 L, Globulin 3.4, Albumin/Globulin Ratio 0.7 09/22/22 16:30: Corrected WBC 8.6, Uncorrected WBC Count 8.6, RBC 2.94 L, Hgb 8.8 L, Hct 26.5 L, MCV 89.9, MCH 30.0, MCHC 33.3, RDW 15.6 H, Plt Count 161, MPV8.2, Neut % (Auto) 77.3, Lymph % (Auto) 10.4, Gibson % (Auto) 9.8, Eos % (Auto) 1.6, Baso % (Auto) 0.9, Nucleat RBC Rel Count 0.1, Neut # (Auto) 6.6, Lymph # (Auto) 0.9 L, Gibson # (Auto) 0.8, Eos # (Auto) 0.1, Baso # (Auto) 0.1 01/03/23 16:20: Urine Color Dark yellow A, Urine Appearance Cloudy A, Urine pH 5.5, Ur Specific [place] 1.025, Urine Protein 100 H, Urine Glucose (UA) 500 H, Urine Ketones Trace H, Urine Occult Blood Trace H, Urine Nitrite Negative, UrineBilirubin Negative, Urine Urobilinogen Normal, Ur Leukocyte Esterase 2+ H, UrineRBC 1-2, Urine WBC 10-19 H, Ur Squamous Epith Cells 5-9 H, Ur Renal Epithelial Cell None seen, Urine Bacteria None seen, Hyaline Casts 5-9 H, Fine Granular Casts 1-2 H, Other Casts None seen, Urine Yeast None seen Exam Physical Exam Vital Signs: Temp Pulse Resp BP Pulse Ox O2 Del Method 97.3 F L 64 20 105/66 97 Room Air 09/23/22 15:10 09/23/22 15:10 09/23/22 15:10 09/23/22 15:10 09/23/22 15:10 09/23/22 15:10 Discharge Plan Discharge Plan Patient Disposition: [facility] Facility Diet: Diabetic Additional Instructions: SNF Physician to manage: - PT/OT to eval and treat - Monitor VS routine - Urinary assessments - richardson catheter discontinued 09/23/22 - Fall precautions - high fall risk, recent fall - Monitor blood sugars - Dx. DM - Orthopedic assessments - Dx. Left fourth metacarpal neck fracture - Neuro assessments - Routine skin assessments/care - Wound care: -- Every 3 days - coccyx/bilateral buttocks- scarring with denuded areas- clean with theraworx protect, apply large mepilex border foam Prescriptions: Continued aspirin 81 mg tablet,delayed release (DR/EC) 81 mg PO DAILY Patient Comments: TAKE 1 TABLET BY MOUTH IN THE MORNING sodium bicarbonate 650 mg tablet 1,300 mg PO BID Patient Comments: TAKE 2 TABLETS BY MOUTH TWICE A DAY amlodipine 10 mg Tablet 10 mg PO DAILY furosemide 20 mg tablet 40 mg PO DAILY Patient Comments: TAKE 1 TABLET BY MOUTH EVERY DAY IN THE MORNING metoprolol succinate 25 mg tablet extended release 24 hr 25 mg PO DAILY Patient Comments: TAKE 1 TABLET BY MOUTH EVERY DAY Levemir U-100 Insulin 100 unit/mL solution 35 unit SUBCUT DAILY Patient Comments: INJECT 35 UNITS SUBCUTANEOUSLY EVERY DAY potassium chloride 20 mEq tablet extended release 20 meq PO DAILY Patient Comments: TAKE 1 TABLET BY MOUTH EVERY DAY Follow Up: [facility] [Provider Group] - 09/28/22 2:30 pm (You have been scheduled for a follow up appointment with Dr. Pollard for the following date andtime, please call to reschedule if needed.) [facility] [place] [Outside] - 10/20/22 1:30 pm (With Kathy GOODMAN and Dr. Marsh) Yoko Helms MD [Primary Care Provider] - (Please call to schedule a follow up appointment with PCP upon discharge from SNF.) Documented By: Donn Joseph DO 09/23/22 16 15 Signed By: <Electronically signed by Donn Joseph DO> 09/23/22 0600 [facility] Work Phone: 1(623) 957-794701-04-2023 Progress note Author Donn Joseph [facility] September 23, 2022 4:09pm Note Date/Time September 23, 2022 4: 09pm [facility] [address] [place] [address] Hospitalist Progress Note Signed Patient: Eliz Hewitt MR#: [id number] : 1935 Acct:[id number] Age/Sex: 86 / F Adm Date: 2 Loc: 4 Room: [address] [place] [address] Type: ADM IN Attending Dr: Donn Joseph DO Copies to: ~ Date of Service: 09/23/2022 Subjective Subjective Narrative: Hospitalist Progress Note Subjective: Patient seen examined the bedside. More uncomfortable today. More lethargic. Physical Examination: GENERAL APPEARANCE: Somnolent, resting, HEENT: NCAT, MMM NECK: Neck soft w/o masses, no JVD CARDIAC: Normal S1 and S2. No S3, S4 or murmurs. LUNGS: Clear to auscultation bilaterally. no wheeze/rhonchi/rales ABDOMEN: Positive bowel sounds. Soft, nontender. No guarding or signs of an acute abdomen MUSCULOSKELETAL: No joint erythema or tenderness. EXTREMITIES: Mild pitting edema bilateral lower extremities. Painful foot drop right and left foot also noted PSYCHIATRIC: Appropriate mood and affect ASSESSMENT AND PLAN: 86-year-old female who presented to the emergency department this evening after a reported fall at home. Fall -PT OT has evaluated the patient. We will see if she qualifies for shelter. Family is agreeable. Echocardiogram is pending. Formal read on carotid ultrasound is pending however velocities do not seem increased. Suspectvasovagal episode. Left fourth metacarpal neck Fx XR ( Hip/Knee/Hand/Chest/Shoulder) shows fourth metacarpal fracture of the left hand with improved alignment on postreduction imaging. no acute findings are seen involving the right hip/pelvis, right shoulder, chest, left knee or ankle.. Immobilization and pain control Outpatient follow up Elevated CK level Responded well to IV fluids. Type II ME No chest pain/SOB or EKG changes DM blood sugars were reviewed sliding scale insulin and accuchecks. basal insulin Peripheral edema, bilateral foot drop Appreciate neurology recommendations Exam Physical Exam Vital Signs: Temp Pulse Resp BP Pulse Ox O2 Del Method 97.3 F L 64 20 105/66 97 Room Air 09/23/22 15:10 09/23/22 15:10 09/23/22 15:10 09/23/22 15:10 09/23/22 15:10 09/23/22 15:10 Objective Lab Results 09/22/22 16:30 09/22/22 16:30 Microbiology Results Microbiology 09/22/22 16:20 Urine - Richardson Catheter Urine Culture - Preliminary Providencia rettgeri Meds Allergies and Active Meds Allergies acetaminophen [From [facility]] Allergy (Verified 09/20/22 02:12) Unknown Reaction codeine Allergy (Verified 09/20/22 02:12) Hives hydrocodone [From [facility]] Allergy (Verified 09/20/22 02:12) Unknown Reaction hydroquinone Allergy (Verified 09/20/22 02:12) Unknown Reaction sulfamethoxazole [From Bactrim] Allergy (Verified 09/20/22 02:12) Unknown Reaction trimethoprim [From Bactrim] Allergy (Verified 09/20/22 02:12) Unknown Reaction Active Meds: Active Medications Generic Name Dose Route Start Last Admin Trade Name Freq PRN Reason Stop Dose Admin Acetaminophen 650 mg 09/22/22 13:09 Acetaminophen 325 Mg Tablet PO 09/22/23 13:08 Q6H PRN Pain Amlodipine Besylate 10 mg 09/20/22 09:00 09/23/22 08:51 Amlodipine 10 Mg Tablet PO 09/20/23 08:59 10 mg DAILY ZION Administration Aspirin 81 mg 09/20/22 09:00 09/23/22 08:51 Aspirin 81 Mg Tablet.Dr PO 09/20/23 08:59 81 mg DAILY ZION Administration Dextrose 0 gm 09/20/22 12:34 Dextrose 20 % In Water 10 Gm/50 Ml Syringe IV-PUSH 09/20/23 12:33 PRN PRN Hypoglycemia Glucose 0 gm 09/20/22 12:34 Dextrose 40% Gel 15 Gm Tube PO 09/20/23 12:33 PRN PRN Hypoglycemia Heparin Sodium (Porcine) 5,000 unit 09/20/22 21:00 09/23/22 08:51 Heparin 5,000 Unit/Ml Vial SUBCUT 09/20/23 20:59 5,000 unit BID ZION Administration Insulin Aspart 0 units 09/20/22 17:00 09/23/22 12:18 Insulin Aspart 300 Units/3 Ml Insuln.Pen SUBCUT 09/20/23 16:59 Not Given TID.WM.[facility] Protocol Insulin Glargine 35 units 09/20/22 09:00 09/23/22 08:52 Insulin Glargine 300 Units/3 Ml Insuln.Pen SUBCUT 09/20/23 08:59 35 units DAILY [facility] Administration Melatonin 5 mg 09/23/22 00:15 09/23/22 01:16 Melatonin 5 Mg Tablet PO 09/23/23 00:14 5 mg QHS [facility] Administration Metoprolol Succinate 25 mg 09/20/22 09:00 09/23/22 08:51 Metoprolol Succinate 25 Mg Tab.Er.24h PO 09/20/23 08:59 25 mg DAILY [facility] Administration Morphine Sulfate 1 mg 09/20/22 12:15 Morphine Sulfate 2 Mg/Ml Vial IV-PUSH Q4H PRN Pain Scale 7 - 10 Ondansetron HCl 4 mg 09/20/22 12:15 Ondansetron 4 Mg/2 Ml Vial IV-PUSH 09/20/23 12:14 Q6H PRN Nausea And Vomiting Oxycodone HCl 5 mg 09/20/22 04:04 09/20/22 07:31 Oxycodone Ir 5 Mg Tablet PO 5 mg Q6HR PRN Administration Pain Scale 4 - 7 Sodium Bicarbonate 1,300 mg 09/20/22 09:00 09/23/22 08:51 Sodium Bicarbonate 650 Mg Tablet PO 09/20/23 08:59 1,300 mg BID ZION Administration Sodium Chloride 0 ml 09/19/22 20:46 Sodium Chloride 0.9 % 10 Ml Syringe IV-PUSH 09/19/23 20:45 PRN PRN Flush Trazodone HCl 50 mg 09/22/22 23:49 Trazodone 50 Mg Tablet PO 09/22/23 23:48 ONCE PRN Insomnia Documented By: Donn Joseph DO 09/23/22 16 06 Signed By: <Electronically signed by Donn Joseph DO> 09/23/22 [address] [facility] Work Phone: [phone] 230-891601-04-2023 Consult note Author Андрей Marsh [facility] September 23, 2022 3:12pm Note Date/Time September 23, 2022 9: 09am [facility] [address] [place] [address] Neurology Consult Note Signed Patient: Eliz Hewitt MR#: [id number] : 1935 Acct:[id number] Age/Sex: 86 / F Adm Date: 2 Loc: Room: [address] [place] [address] Type: ADM IN Attending Dr: Donn Joseph DO Copies to: AMARJIT Dunbar MD Michael R. Frings, DO Steven Benedict, MD~ HPI Consult Date: 09/23/22 Relief Master: MILES Quezada with Dr. Marsh Reason for consult: Bilateral foot drop Consult Narrative HPI: Patient is an 86-year-old female with medical history of diabetes and hypertension. She has been seen in neurological consultation at the request of the hospital service for bilateral foot drop. Patient was admitted on 09/19/2022 after a fall at home. Last known well was 4 PM. She laid on the ground for approximately 12 hours before family found her. She has no recall of the fall. She states she was dreaming and landed on the floor. She thinks she fell out ofbed. She was found with 1 leg in the bathroom and the rest of her body in the bedroom. Her bathroom was approximately 5 to 6 feet away from her bed. She fell just before [place] as well. At that time she tripped over a lip in the sidewalk. At that time she reported that she could not get her foot to move. Sitting on the bed she feels lightheaded. She denies any persistent positional lightheadedness or dizziness. She denies headache or vision changes. Her daughter is present and states she has been walking slower over the last severalmonths. She complains of pain in the right knee and hip. This increases when she is weightbearing. She has a walker that she uses at home. Lastly her daughter reports that she had speech difficulty yesterday which seems to be better today. In the emergency room her troponin was elevated at 134 and her CPK was elevated at 745. She was hyperglycemic with glucose of 348. Signs of acute kidney injury with BUN of 23 and creatinine 1.09. She had a CT scan of the headthat was nonacute. Hand x- rays showed a fourth metacarpal fracture on the left with improved alignment after being reduced in the emergency room. No other acute injury was noted. Per chart review the patient was doing well until yesterday. She started to experience more discomfort and increased lethargy. She was noted to have bilateral foot drop that was painful. Therefore neurologywas consulted. She did have a CT scan of the cervical spine on admission which was nonacute. She also had x-rays of the right shoulder, left knee, left ankle,and right hip. Other than the metacarpal fracture no acute injury was noted. Review of Systems Constitutional Constitutional: Denies chills and Denies fever(s) Eyes Eyes: Denies blurry vision, Denies diplopia and Denies loss of vision ENT Ears, Nose, Mouth, and Throat: Denies nasal congestion and Denies nasal discharge Cardiovascular Cardiovascular: Denies chest pain and Denies palpitations Respiratory Respiratory: Denies dyspnea Gastrointestinal Gastrointestinal: Denies nausea Genitourinary Genitourinary: Denies dysuria Musculoskeletal Musculoskeletal: Reports arthralgias, Reports myalgias and Reports radiating pain into limb Integumentary/Breasts Skin/Breast: Denies pruritus Neurologic Neurologic: Reports as per HPI Psychiatric Psychiatric: Denies confusion [facility] Vaccinated for COVID-19?: Yes Medical History (Updated 09/23/22 @ 09:24 by Jodi Swift, ANP-) Diabetes mellitus, type 2 Hypertension Surgical History History of heart valve replacement History of surgery on arm Social History Smoking Status: Never smoker Substance Use Type: None Meds Medications and Allergies Allergies acetaminophen [From Dodson] Allergy (Verified 09/20/22 02:12) Unknown Reaction codeine Allergy (Verified 09/20/22 02:12) Hives hydrocodone [From Dodson] Allergy (Verified 09/20/22 02:12) Unknown Reaction hydroquinone Allergy (Verified 09/20/22 02:12) Unknown Reaction sulfamethoxazole [From Bactrim] Allergy (Verified 09/20/22 02:12) Unknown Reaction trimethoprim [From Bactrim] Allergy (Verified 09/20/22 02:12) Unknown Reaction Home Medications amlodipine 10 mg tablet 10 mg PO DAILY 09/19/22 [History Confirmed 09/20/22] aspirin 81 mg tablet,delayed release 81 mg PO DAILY 09/19/22 [History Confirmed 09/20/22] furosemide 20 mg tablet 40 mg PO DAILY 09/19/22 [History Confirmed 09/20/22] insulin detemir U-100 100 unit/mL subcutaneous solution (Levemir U-100 Insulin) 35 unit subcut DAILY 09/19/22 [History Confirmed 09/20/22] metoprolol succinate 25 mg tablet,extended release 24 hr 25 mg PO DAILY 09/19/22[History Confirmed 09/20/22] potassium chloride 20 mEq tablet,extended release 20 meq PO DAILY 09/19/22 [History Confirmed 09/20/22] sodium bicarbonate 650 mg tablet 1,300 mg PO BID 09/19/22 [History Confirmed 09/20/22] Exam Physical Exam Vital Signs: Temp Pulse Resp BP Pulse Ox O2 Del Method 98.6 F 61 15 118/57 L 93 L Room Air 09/23/22 08:00 09/23/22 08:00 09/23/22 04:30 09/23/22 08:00 09/23/22 08:00 09/23/22 08:00 Narrative: GENERAL EXAM: * Constitutional - Patient appears well nourished and well groomed * Patient is alert and oriented x3. * Apical is regular rate and irregular rhythm. No murmur was appreciated. * Lung sounds are clear to auscultation, diminished * Abdomen is soft with normal bowel sounds * Neck is supple without carotid bruit * Ophthalmoscopic exam deferred. No injection or drainage noted. * Bruising noted around her eye NEURO EXAM: * Attention span/concentration normal * Speech is clear and fluent * Cranial nerve II. Vision is intact. MEGAN * Cranial nerve III, IV and . Extraocular muscles are intact. No nystagmus is appreciated * Cranial nerve V and VII. No facial asymmetry is appreciated. Temperature and pinprick is equal bilaterally * Cranial nerve VIII hearing is intact * Cranial nerve IX and X speech is clear fluent. Palate elevates symmetrically * Cranial nerve XI head turn side to side full range of motion. Shoulder shrug is equal bilaterally * Cranial nerve XII tongue is midline full range of motion MOTOR EXAM: * Strength is 5/5 in bilateral upper extremity. No pronator drift was appreciated. Splinting on the left noted. She does have swelling and bruising noted in the left distal upper extremity. * Lower extremity exam is limited due to discomfort. Strength is 4/5 bilateral ly in proximal lower extremities. She has giveaway weakness due to discomfort in the hips and knees. * 5/5 in the distal left lower extremity with extension and dorsiflexion of the ankle. Difficult to gauge strength in the right ankle due to giveaway weakness secondary to pain. On my exam is not consistent with foot drop. * Muscle tone and bulk are normal * Gait not assessed SENSORY EXAM: * Temperature, pinprick, vibration are intact in all 4 extremities and symmetric. She has significant loss of vibratory sense below the knee which is absent at the great toe bilaterally. Proprioception is absent. CEREBELLAR EXAM: * Eaeyck-td-yqle and alternating movements are intact and normal in bilateral upper extremities. Limited exam on the left due to splinting of the wrist and hand * Alternating movements are intact and normal in lower extremities REFLEX EXAM: * 09/23 throughout Results Laboratory Findings 09/22/22 16:30 09/22/22 16:30 Diagnostic Findings Imaging/Impressions: ITS Impressions Hip X-Ray 09/19/22 20:51 IMPRESSION: FOURTH METACARPAL FRACTURE OF THE LEFT HAND WITH IMPROVED ALIGNMENT ON POSTREDUCTION IMAGING. NO ACUTE FINDINGS ARE SEEN INVOLVING THE RIGHT HIP/PELVIS, RIGHT SHOULDER, CHEST, LEFT KNEE OR ANKLE.. Impression dictated by: Randy Vickers Jr., D.O.09/20/2022 9:30 AM Dictation Location: [facility]- Head CT 09/19/22 21:53 IMPRESSION: NO ACUTE FACIAL BONE INJURY. NO ACUTE INTRACRANIAL ABNORMALITY. CT CERVICAL SPINE WITHOUT CONTRAST WITH 3D RECONSTRUCTIONS: CLINICAL HISTORY: Fall. COMPARISON: None TECHNIQUE: Spiral axial unenhanced images were obtained through the cervical spine. Sagittal, coronal and 3D volume-rendered reconstructions were also reviewed. This CT exam was performed using one or more following dose reductiontechniques: Automated exposure control, adjustment of the mA and/or kV accordingto patient size, or use of iterative reconstruction technique. FINDINGS: No acute fracture. Vertebral body heights appear maintained. Diffuse mild spondylosis with endplate, uncovertebral and facet joint degenerative change. No prevertebral soft tissue swelling. Visualized lung apices demonstrateno acute findings. IMPRESSION: NO CERVICAL SPINE FRACTURE Impression dictated by: Randy Vickers Jr., D.O.09/20/2022 8:41 AM Dictation Location: [place] [address] Chest X-Ray 09/22/22 15:35 IMPRESSION: DEVELOPING BIBASILAR PLEURAL AND/OR PARENCHYMAL CHANGE, GREATER ON THE LEFT Impression dictated by: Maddie Miner M.D.09/22/2022 3:55 PM Dictation Location: [place] [address] 09/22/22 17:06 IMPRESSION: No acute intracranial pathology. Impression dictated by: bAram Baltazar M.D.09/22/2022 5:45 PM Dictation Location: [place] [address] Therapy Recommendations Therapy Recommendations: OT Recommendations OT Recommended Discharge [facility] Facility Location OT Recommended Services at Physical Therapy,Occupational Therapy Discharge PT Recommendations PT Recommended Discharge [facility] Facility Location PT Recommended Services at Physical Therapy,Occupational Therapy Discharge Assessment/Plan (1) Fall: Code(s): W19.XXXA - Unspecified fall, initial encounter Status: Acute (2) Foot drop, bilateral: Code(s): M21.371 - Foot drop, right foot; M21.372 - Foot drop, left foot Status: Acute Plan FallIs an 86-year-old female with medical history of diabetes and hypertension. On the evening of 09/19/2022 and laid on the ground for approximately 12 hour. EMS was called and she was brought to the emergency room. She did suffer a fourth metacarpal fracture on her left hand. CT scan of the head and cervical spine were nonacute. Extensive x-rays of the right shoulder and right hip and left knee and ankle which was nonacute. She did have a fall just before [place] as well when she tripped over a lip in the sidewalk. She has been walking more slowly recently. In addition her daughter reports some speech difficulty yesterday patient has no recall of the event. Etiology for fall is multifactorial. Given she has no recall of the event seizure is in the differential. We will get an MRI scan of the brain to further evaluate for acute intracranial pathology that would contribute to a fall as well as an MRA of the head to assess for vertebrobasilar syndrome. Carotid ultrasound has beencompleted and velocities look unremarkable. Formal report is pending. Neurology is actually consulted for bilateral foot drop. On physical exam I do not appreciate true foot drop. Left ankle flexion and dorsiflexion is strong. Right ankle flexion dorsiflexion is limited due to pain. 1. CT scan of the head nonacute. MRI scan of the brain is pending 2. MRA of the head is pending 3. Carotid ultrasound is pending 4. Echocardiogram shows EF of 60 to 65%, left atrium mildly dilated, right atrium moderately dilated, bioprosthetic aortic valve, moderate aortic stenosis,severe mitral stenosis, moderate to severe tricuspid regurgitation, severe pulmonary hypertension. Inferior vena cava moderately dilated with a decrease in inspiratory collapse, no mention of thrombus or mass 5. Anemia with hemoglobin 8.8. Was 11.3 on admission. Primary team will address as necessary 6. ABGs on admission suggested respiratory alkalosis. Chest x-ray showed developing bibasilar pleural-parenchymal changes. Greater on the left. 7. LFTs normal 8. CPK 745 on admission and improved to 375 9. High-sensitivity troponin peaked at 155. 134 on admission. EKG shows normal sinus rhythm. 10. Urinalysis showed 2+ leukocyte esterase with 10-19 WBC. No bacteria or nitrates. Urine culture contaminated. 11. PT OT recommends SNF 12. X-ray of the right ankle 13. Fall precautions 14. We will check B12, folate, and TSH 15. 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 The patient did have an MRI scan ofthe brain which did not reveal any obvious evidence of acute intracranial process such as stroke or cerebral ischemia contributing to her symptoms. The patient does not have any evidence of cerebral artery stenosis or occlusion contributing to cerebral hypoperfusion. The patient would benefit from evaluation by physical therapy, Occupational Therapy, speech therapy to assess for therapy and rehab needs. I counseled the patient and her family on the possible diagnosis, prognosis, evaluation, and treatment options. The patient maybenefit from an EMG as an outpatient to assess for extent of underlying nerve damage. Documented By: Андрей Marsh MD 09/23/22 0909 Signed By: <Electronically signed by MD Андрей Marsh> 09/23/22 1512 <Electronically signed by AMARJIT Swift> 09/23/22 [address] [facility] Work Phone: 1([phone]) 319-628001-04-2023 Hospital Discharge instructions Additional Instructions SNF Physician to manage: - PT/OT to eval and treat - Monitor VS routine - Urinary assessments - richardson catheter discontinued 09/23/22 - Fall precautions - high fall risk, recent fall - Monitor blood sugars - Dx. DM - Orthopedic assessments - Dx. Left fourth metacarpal neck fracture - Neuro assessments - Routine skin assessments/care - Wound care: -- Every 3 days - coccyx/bilateral buttocks- scarring with denuded areas- clean with theraworx protect, apply large mepilex [facility] Work Phone: [phone]) [phone] Progress note Author Donn Joseph [facility] September 22, 2022 7:14pm Note Date/Time September 22, 2022 7: 14pm [facility] [address] [place] [address] Hospitalist Progress Note Signed Patient: Eliz Hewitt MR#: [id number] : 1935 Acct:[id number] Age/Sex: 86 / F Adm Date: 2 Loc: 4N Room: 1T5052-5 Type: ADM IN Attending Dr: Donn Joseph DO Copies to: ~ Date of Service: 09/22/2022 Subjective Subjective Narrative: Hospitalist Progress Note Subjective: Patient seen examined the bedside. More uncomfortable today. More lethargic. Physical Examination: GENERAL APPEARANCE: Somnolent, resting, HEENT: NCAT, MMM NECK: Neck soft w/o masses, no JVD CARDIAC: Normal S1 and S2. No S3, S4 or murmurs. LUNGS: Clear to auscultation bilaterally. no wheeze/rhonchi/rales ABDOMEN: Positive bowel sounds. Soft, nontender. No guarding or signs of an acute abdomen MUSCULOSKELETAL: No joint erythema or tenderness. EXTREMITIES: Mild pitting edema bilateral lower extremities. Painful foot drop right and left foot also noted PSYCHIATRIC: Appropriate mood and affect ASSESSMENT AND PLAN: 86-year-old female who presented to the emergency department this evening after a reported fall at home. Fall -PT OT has evaluated the patient. We will see if she qualifies for shelter. Family is agreeable. Echocardiogram is pending. Formal read on carotid ultrasound is pending however velocities do not seem increased. Suspectvasovagal episode. Left fourth metacarpal neck Fx XR ( Hip/Knee/Hand/Chest/Shoulder) shows fourth metacarpal fracture of the left hand with improved alignment on postreduction imaging. no acute findings are seen involving the right hip/pelvis, right shoulder, chest, left knee or ankle.. Immobilization and pain control Outpatient follow up Elevated CK level Responded well to IV fluids. Type II ME No chest pain/SOB or EKG changes DM blood sugars were reviewed sliding scale insulin and accuchecks. basal insulin Peripheral edema, bilateral foot drop Patient has tenderness to both lower extremities. Unclear if this is a neuropathic type of pain. She is able to move both her feet. Her overall mental status is somewhat lethargic today. Stat labs, chest x-ray and BNP suggest some fluid overload. We will diurese. Unclear if this foot drop is apparent now due to her overall lethargy. CT of the head is nonacute today. Wewill consult neurology for any further recommendations. Exam Physical Exam Vital Signs: Temp Pulse Resp BP Pulse Ox O2 Del Method 98.4 F 78 22 114/69 92 L Room Air 09/22/22 16:00 09/22/22 16:00 09/22/22 16:00 09/22/22 16:00 09/22/22 16:00 09/22/22 16:00 Objective Lab Results 09/22/22 16:30 09/22/22 16:30 Microbiology Results Microbiology 09/19/22 21:00 Urine, Richardson Urine Culture - Final 15,000 colonies/ml mixed bacterial skin contaminants 2 Days ABG Interpretation ABG results: 09/22/22 17:24 ABG pH 7.50 H ABG pCO2 28.6 L* ABG pO2 61.9 L ABG HCO3 21.8 L ABG Total CO2 22.7 L ABG O2 Saturation 93.6 L ABG O2 Content 6.0 L ABG Base Excess -0.7 Meds Allergies and Active Meds Allergies acetaminophen [From [facility]son] Allergy (Verified 09/20/22 02:12) Unknown Reaction codeine Allergy (Verified 09/20/22 02:12) Hives hydrocodone [From [facility]son] Allergy (Verified 09/20/22 02:12) Unknown Reaction hydroquinone Allergy (Verified 09/20/22 02:12) Unknown Reaction sulfamethoxazole [From Bactrim] Allergy (Verified 09/20/22 02:12) Unknown Reaction trimethoprim [From Bactrim] Allergy (Verified 09/20/22 02:12) Unknown Reaction Active Meds: Active Medications Generic Name Dose Route Start Last Admin Trade Name Freq PRN Reason Stop Dose Admin Acetaminophen 650 mg 09/22/22 13:09 Acetaminophen 325 Mg Tablet PO 09/22/23 13:08 Q6H PRN Pain Amlodipine Besylate 10 mg 09/20/22 09:00 09/22/22 08:48 Amlodipine 10 Mg Tablet PO 09/20/23 08:59 10 mg DAILY ZION Administration Aspirin 81 mg 09/20/22 09:00 09/22/22 08:46 Aspirin 81 Mg Tablet. PO 09/20/23 08:59 81 mg DAILY ZION Administration Dextrose 0 gm 09/20/22 12:34 Dextrose 20 % In Water 10 Gm/50 Ml Syringe IV-PUSH 09/20/23 12:33 PRN PRN Hypoglycemia Glucose 0 gm 09/20/22 12:34 Dextrose 40% Gel 15 Gm Tube PO 09/20/23 12:33 PRN PRN Hypoglycemia Heparin Sodium (Porcine) 5,000 unit 09/20/22 21:00 09/22/22 08:46 Heparin 5,000 Unit/Ml Vial SUBCUT 09/20/23 20:59 5,000 unit BID ZION Administration Insulin Aspart 0 units 09/20/22 17:00 09/22/22 17:22 Insulin Aspart 300 Units/3 Ml Insuln.Pen SUBCUT 09/20/23 16:59 3 units TID.WM.HS ZION Administration Protocol Insulin Glargine 35 units 09/20/22 09:00 09/22/22 08:48 Insulin Glargine 300 Units/3 Ml Insuln.Pen SUBCUT 09/20/23 08:59 35 units DAILY ZION Administration Metoprolol Succinate 25 mg 09/20/22 09:00 09/22/22 08:47 Metoprolol Succinate 25 Mg Tab.Er.24h PO 09/20/23 08:59 25 mg DAILY ZION Administration Morphine Sulfate 1 mg 09/20/22 12:15 Morphine Sulfate 2 Mg/Ml Vial IV-PUSH Q4H PRN Pain Scale 7 - 10 Ondansetron HCl 4 mg 09/20/22 12:15 Ondansetron 4 Mg/2 Ml Vial IV-PUSH 09/20/23 12:14 Q6H PRN Nausea And Vomiting Oxycodone HCl 5 mg 09/20/22 04:04 09/20/22 07:31 Oxycodone Ir 5 Mg Tablet PO 5 mg Q6HR PRN Administration Pain Scale 4 - 7 Sodium Bicarbonate 1,300 mg 09/20/22 09:00 09/22/22 08:47 Sodium Bicarbonate 650 Mg Tablet PO 09/20/23 08:59 1,300 mg BID ZION Administration Sodium Chloride 0 ml 09/19/22 20:46 Sodium Chloride 0.9 % 10 Ml Syringe IV-PUSH 09/19/23 20:45 PRN PRN Flush Documented By: Donn Joseph DO 09/22/22 19 10 Signed By: <Electronically signed by Donn Joseph DO> 09/22/221913 [facility] Work Phone: 1(468) 569-364101-02-2023 Progress note Author Donn Joseph [facility] September 21, 2022 4:05pm Note Date/Time September 21, 2022 4: 05pm [facility] [address] [place] [address] Hospitalist Progress Note Signed Patient: Eliz Hewitt MR#: [id number] : 1935 Acct:[id number] Age/Sex: 86 / F Adm Date: 2 Loc: Room: [address] [place] [address] Type: ADM IN Attending Dr: Donn Joseph DO Copies to: ~ Date of Service: 09/21/2022 Subjective Subjective Narrative: Hospitalist Progress Note Subjective: Patient seen examined the bedside. She is resting comfortably. provides majority of the history. No acute vents overnight. Physical Examination: GENERAL APPEARANCE: Somnolent, resting, HEENT: NCAT, MMM NECK: Neck soft w/o masses, no JVD CARDIAC: Normal S1 and S2. No S3, S4 or murmurs. LUNGS: Clear to auscultation bilaterally. no wheeze/rhonchi/rales ABDOMEN: Positive bowel sounds. Soft, nontender. No guarding or signs of an acute abdomen MUSCULOSKELETAL: No joint erythema or tenderness. EXTREMITIES: No clubbing, cyanosis or edema PSYCHIATRIC: Appropriate mood and affect ASSESSMENT AND PLAN: 86-year-old female who presented to the emergency department this evening after a reported fall at home. Fall -PT OT has evaluated the patient. We will see if she qualifies for shelter. Family is agreeable. Echocardiogram is pending. Formal read on carotid ultrasound is pending however velocities do not seem increased. Suspectvasovagal episode. Left fourth metacarpal neck Fx XR ( Hip/Knee/Hand/Chest/Shoulder) shows fourth metacarpal fracture of the left hand with improved alignment on postreduction imaging. no acute findings are seen involving the right hip/pelvis, right shoulder, chest, left knee or ankle.. Immobilization and pain control Outpatient follow up Elevated CK level Responded well to IV fluids. Type II ME No chest pain/SOB or EKG changes DM blood sugars were reviewed sliding scale insulin and accuchecks. basal insulin Exam Physical Exam Vital Signs: Temp Pulse Resp BP Pulse Ox O2 Del Method 97.7 F 79 16 138/66 90 L Room Air 09/21/22 11:52 09/21/22 11:52 09/21/22 11:52 09/21/22 11:52 09/21/22 11:52 09/21/22 11:52 Objective Lab Results 09/21/22 04:59 09/21/22 04:59 Microbiology Results Microbiology 09/19/22 21:00 Urine, Richardson Urine Culture - Preliminary No Growth 1 Day Meds Allergies and Active Meds Allergies acetaminophen [From Dodson] Allergy (Verified 09/20/22 02:12) Unknown Reaction codeine Allergy (Verified 09/20/22 02:12) Hives hydrocodone [From Dodson] Allergy (Verified 09/20/22 02:12) Unknown Reaction hydroquinone Allergy (Verified 09/20/22 02:12) Unknown Reaction sulfamethoxazole [From Bactrim] Allergy (Verified 09/20/22 02:12) Unknown Reaction trimethoprim [From Bactrim] Allergy (Verified 09/20/22 02:12) Unknown Reaction Active Meds: Active Medications Generic Name Dose Route Start Last Admin Trade Name Freq PRN Reason Stop Dose Admin Amlodipine Besylate 10 mg 09/20/22 09:00 09/21/22 08:42 Amlodipine 10 Mg Tablet PO 09/20/23 08:59 10 mg DAILY ZION Administration Aspirin 81 mg 09/20/22 09:00 09/21/22 08:42 Aspirin 81 Mg Tablet. PO 09/20/23 08:59 81 mg DAILY ZION Administration Dextrose 0 gm 09/20/22 12:34 Dextrose 20 % In Water 10 Gm/50 Ml Syringe IV-PUSH 09/20/23 12:33 PRN PRN Hypoglycemia Glucose 0 gm 09/20/22 12:34 Dextrose 40% Gel 15 Gm Tube PO 09/20/23 12:33 PRN PRN Hypoglycemia Heparin Sodium (Porcine) 5,000 unit 09/20/22 21:00 09/21/22 08:42 Heparin 5,000 Unit/Ml Vial SUBCUT 09/20/23 20:59 5,000 unit BID ZION Administration Sodium Chloride 1,000 mls @ 100 mls/hr 09/20/22 04:15 09/21/22 11:39 0.9% Sodium Chloride 1,000 Ml IV 09/22/22 04:14 100 mls/hr .Q10H ZION Administration Insulin Aspart 0 units 09/20/22 17:00 09/21/22 12:01 Insulin Aspart 300 Units/3 Ml Insuln.Pen SUBCUT 09/20/23 16:59 2 units TID.WM.HS ZION Administration Protocol Insulin Glargine 35 units 09/20/22 09:00 09/21/22 08:43 Insulin Glargine 300 Units/3 Ml Insuln.Pen SUBCUT 09/20/23 08:59 Not Given DAILY ZION Metoprolol Succinate 25 mg 09/20/22 09:00 09/21/22 08:42 Metoprolol Succinate 25 Mg Tab.Er.24h PO 09/20/23 08:59 25 mg DAILY ZION Administration Morphine Sulfate 1 mg 09/20/22 12:15 Morphine Sulfate 2 Mg/Ml Vial IV-PUSH Q4H PRN Pain Scale 7 - 10 Ondansetron HCl 4 mg 09/20/22 12:15 Ondansetron 4 Mg/2 Ml Vial IV-PUSH 09/20/23 12:14 Q6H PRN Nausea And Vomiting Oxycodone HCl 5 mg 09/20/22 04:04 09/20/22 07:31 Oxycodone Ir 5 Mg Tablet PO 5 mg Q6HR PRN Administration Pain Scale 4 - 7 Sodium Bicarbonate 1,300 mg 09/20/22 09:00 09/21/22 08:42 Sodium Bicarbonate 650 Mg Tablet PO 09/20/23 08:59 1,300 mg BID ZION Administration Sodium Chloride 0 ml 09/19/22 20:46 Sodium Chloride 0.9 % 10 Ml Syringe IV-PUSH 09/19/23 20:45 PRN PRN Flush Documented By: Donn Joseph DO 09/21/22 16 03 Signed By: <Electronically signed by Donn Joseph, > 09/21/22 [address] [facility] Work Phone: [phone]) 436-115001-01-2023 Progress note Author Dusty Singh [facility] September 20, 2022 4:29pm Note Date/Time September 20, 2022 12 :28pm [facility] [address] [place] [address] Hospitalist Progress Note Signed Patient: Eliz Hewitt MR#: [id number] : 1935 Acct:[id number] Age/Sex: 86 / F Adm Date: 2 Loc: 4N Room: 6N3132-8 Type: ADM IN Attending Dr: Dusty Singh MD Copies to: ~ Date of Service: 09/20/2022 Subjective Subjective Narrative: Hospitalist Progress Note ASSESSMENT AND PLAN: 86-year-old female who presented to the emergency department this evening after a reported fall at home. Fall She was found on the floor half in the floor and upper half outside the bathroom. She doesn't remember anything. Last time she was known Ok was in the evenings. Her last fall was more than one year ago per her son ct brain shows no acute intracranial process urinalysis didn?t show any pyuria EKG NSR PT/OT Echocardiography to look for any structural heart disease (she has murmur) Telemetry carotid duplex ultrasound Left fourth metacarpal neck Fx XR ( Hip/Knee/Hand/Chest/Shoulder) shows fourth metacarpal fracture of the left hand with improved alignment on postreduction imaging. no acute findings are seen involving the right hip/pelvis, right shoulder, chest, left knee or ankle.. Immobilization and pain control Outpatient follow up Elevated CK level continue IV fluids. for one more day CK in am Type II ME No chest pain/SOB or EKG changes DM blood sugars were reviewed sliding scale insulin and accuchecks. basal insulin: Chronic Conditions: Unless mentioned Above, All chronic conditions are stable. home medications/treatment if any were continued DVT Px : Addressed INTERVAL HPI: As Above, Pt resting in bed. feeling better little bit confused ROS: Denies any chest pain, SOB Deposition: To be determined Plan of care Discussed with: the medical team, the patient and her son at bedside Exam Physical Exam Vital Signs: Temp Pulse Resp BP Pulse Ox O2 Del Method 36.8 C 90 16 114/64 95 Room Air 09/20/22 08:00 09/20/22 08:00 09/20/22 08:00 09/20/22 08:00 09/20/22 08:00 09/20/22 08:00 Narrative: GEN: NAD, Cooperative, left ocular ecchymosis NECK: ? JVD, supple LUNGS: CTA. normal respiratory effort CV: nl S1 S2; 3/6 systolic mummer ABD: Soft, ND, NT, + BS, ? rebound, ? guarding, ? HSM EXT: No peripheral edema, No calf muscle tenderness, left arm in splint. NEURO: generalized weakness , ? FND. PSYCH: flat affect, AOx2 Objective Lab Results 09/20/22 05:03 09/20/22 05:03 Meds Allergies and Active Meds Allergies acetaminophen [From Dodson] Allergy (Verified 09/20/22 02:12) Unknown Reaction codeine Allergy (Verified 09/20/22 02:12) Hives hydrocodone [From Dodson] Allergy (Verified 09/20/22 02:12) Unknown Reaction hydroquinone Allergy (Verified 09/20/22 02:12) Unknown Reaction sulfamethoxazole [From Bactrim] Allergy (Verified 09/20/22 02:12) Unknown Reaction trimethoprim [From Bactrim] Allergy (Verified 09/20/22 02:12) Unknown Reaction Active Meds: Active Medications Generic Name Dose Route Start Last Admin Trade Name Freq PRN Reason Stop Dose Admin Amlodipine Besylate 10 mg 09/20/22 09:00 09/20/22 08:37 Amlodipine 10 Mg Tablet PO 09/20/23 08:59 10 mg DAILY ZION Administration Aspirin 81 mg 09/20/22 09:00 09/20/22 08:37 Aspirin 81 Mg Tablet. PO 09/20/23 08:59 81 mg DAILY ZION Administration Heparin Sodium (Porcine) 5,000 unit 09/20/22 21:00 Heparin 5,000 Unit/Ml Vial SUBCUT 09/20/23 20:59 BID ZION Sodium Chloride 1,000 mls @ 100 mls/hr 09/20/22 04:15 0.9% Sodium Chloride 1,000 Ml IV 09/20/23 04:14 .Q10H ZION Insulin Glargine 35 units 09/20/22 09:00 09/20/22 08:37 Insulin Glargine 300 Units/3 Ml Insuln.Pen SUBCUT 09/20/23 08:59 35 units DAILY ZION Administration Metoprolol Succinate 25 mg 09/20/22 09:00 09/20/22 08:37 Metoprolol Succinate 25 Mg Tab.Er.24h PO 09/20/23 08:59 25 mg DAILY ZION Administration Morphine Sulfate 1 mg 09/20/22 12:15 Morphine Sulfate 2 Mg/Ml Vial IV-PUSH Q4H PRN Pain Scale 7 - 10 Ondansetron HCl 4 mg 09/20/22 12:15 Ondansetron 4 Mg/2 Ml Vial IV-PUSH 09/20/23 12:14 Q6H PRN Nausea And Vomiting Oxycodone HCl 5 mg 09/20/22 04:04 09/20/22 07:31 Oxycodone Ir 5 Mg Tablet PO 5 mg Q6HR PRN Administration Pain Scale 4 - 7 Sodium Bicarbonate 1,300 mg 09/20/22 09:00 09/20/22 08:37 Sodium Bicarbonate 650 Mg Tablet PO 09/20/23 08:59 1,300 mg BID ZION Administration Sodium Chloride 0 ml 09/19/22 20:46 Sodium Chloride 0.9 % 10 Ml Syringe IV-PUSH 09/19/23 20:45 PRN PRN Flush Documented By: Dusty Singh MD 09/20/22 1226 Signed By: <Electronically signed by Dusty Singh MD> 09/20/22 [address] [facility] Work Phone: 1(444) 378-948701-01-2023 History and physical note Author Donn Joseph [facility] September 20, 2022 4:57am Note Date/Time September 20, 2022 4: 57am [facility] [address] [place] [address] Hospitalist H&P Signed Patient: Eliz Hewitt MR#: [id number] : 1935 Acct:[id number] Age/Sex: 86 / F Adm Date: 2 Loc: Room: [address] [place] [address] Type: ADM IN Attending Dr: Donn Joseph DO Copies to: MD Donn Yoon DO~ HPI DATE OF EXAMINATION: 09/20/22 CHIEF COMPLAINT: Fall HISTORY OF PRESENT ILLNESS: This patient is an 86-year-old female who presented to the emergency department this evening after a reported fall at home. Her last known well was reportedly 4 PM and she was down for an unknown amount of time. Patient is appropriately alert and oriented but cannot describe the fall. She takes a baby aspirin daily. She has been feeling fine otherwise up until now. It is estimated she was on the ground for approximately 1 hour prior to EMSs arrival. Her vital signs on presentation revealed a heart rate of 78, respirations 26, blood pressure 175/74, 98% O2 saturation on room air. CBC revealed mild anemia with an H&H of 11.3/34.0%. Chemistries significant for mild hyponatremia 134, borderline anion gap metabolic acidosis with a bicarbonate level of 20.8. BUN/creatinine 23/1.09. Hyperglycemia noted at 348. High- sensitivity troponin was elevated at 134, CK suggesting possible mild rhabdomyolysis at 745. The patient denies any chest pain or shortness of breath. She was extensively imaged in the ER to rule out any acute fracture. Left fourth metacarpal fracture was noted. This was splinted and reduced by the ER physician. Given abnormal labs and unknown nature of fall the patient was admitted to the [facility] for further evaluation and treatment. Physical Examination: GENERAL APPEARANCE: Alert, up in bed AAOx3 HEENT: NCAT, MMM NECK: Neck soft w/o masses, no JVD CARDIAC: Normal S1 and S2. No S3, S4 or murmurs. LUNGS: Clear to auscultation bilaterally. no wheeze/rhonchi/rales ABDOMEN: Positive bowel sounds. Soft, nontender. No guarding or signs of an acute abdomen MUSCULOSKELETAL: Splint in place to left hand EXTREMITIES: No clubbing, cyanosis or edema PSYCHIATRIC: Appropriate mood and affect Assessment and plan: 1. Fall Unknown if patient lost consciousness. Appears appropriately oriented at this time. Will consult PT/OT. Continue to monitor. If further concerning for syncope may need more extensive work-up. We will continue telemetry for now. 2. Type II myocardial infarction Mildly hypertensive and tachycardic on presentation likely demand ischemia from this. Continue to trend troponin levels. Continue home aspirin. No EKG changes. 3. Elevated CK level Patient could be at risk for rhabdomyolysis. We will continue IV fluids. 4. Chronic kidney disease Likely near baseline. She does not appear clinically severely dehydrated. We will continue IV fluids for treatment of rhabdomyolysis and also continue home bicarbonate supplements. Review of Systems Review of Systems All other systems reviewed & are negative unless noted below or in HPI PMFSH Vaccinated for COVID-19?: Yes Medical History Diabetes mellitus, type 2 Hypertension Surgical History History of heart valve replacement History of surgery on arm Social History Smoking Status: Never smoker Substance Use Type: None Meds Medications and Allergies Allergies acetaminophen [From Dodson] Allergy (Verified 09/20/22 02:12) Unknown Reaction codeine Allergy (Verified 09/20/22 02:12) Hives hydrocodone [From Dodson] Allergy (Verified 09/20/22 02:12) Unknown Reaction hydroquinone Allergy (Verified 09/20/22 02:12) Unknown Reaction sulfamethoxazole [From Bactrim] Allergy (Verified 09/20/22 02:12) Unknown Reaction trimethoprim [From Bactrim] Allergy (Verified 09/20/22 02:12) Unknown Reaction Home Medications amlodipine 10 mg tablet 10 mg PO DAILY 09/19/22 [History Confirmed 09/20/22] aspirin 81 mg tablet,delayed release 81 mg PO DAILY 09/19/22 [History Confirmed 09/20/22] furosemide 20 mg tablet 40 mg PO DAILY 09/19/22 [History Confirmed 09/20/22] insulin detemir U-100 100 unit/mL subcutaneous solution (Levemir U-100 Insulin) 35 unit subcut DAILY 09/19/22 [History Confirmed 09/20/22] metoprolol succinate 25 mg tablet,extended release 24 hr 25 mg PO DAILY 09/19/22[History Confirmed 09/20/22] potassium chloride 20 mEq tablet,extended release 20 meq PO DAILY 09/19/22 [History Confirmed 09/20/22] sodium bicarbonate 650 mg tablet 1,300 mg PO BID 09/19/22 [History Confirmed 09/20/22] Exam Physical Exam Vital Signs: Temp Pulse Resp BP Pulse Ox O2 Del Method 97.8 F 90 16 147/72 H 95 Room Air 09/20/22 02:03 09/20/22 02:03 09/20/22 02:03 09/20/22 02:03 09/20/22 02:03 09/20/22 03:03 Results Lab Results Labs: Laboratory Last Values Corrected WBC 10.6 X10E3/uL (3.8-11.6) 09/19/22 21:08 Uncorrected WBC Count 10.6 x10E3/uL (3.8-11.6) 09/19/22 21:08 RBC 3.81 X10E6/uL (3.60-5.00) 09/19/22 21:08 Hgb 11.3 g/dL (11.8-15.4) L 09/19/22 21:08 Hct 34.0 % (34.0-46.4) 09/19/22 21:08 MCV 89.4 fl (80-100) 09/19/22 21:08 MCH 29.7 pg (24.7-34.3) 09/19/22 21:08 MCHC 33.2 g/dL (32.0-35.0) 09/19/22 21:08 RDW 15.5 % (11.9-15.3) H 09/19/22 21:08 Plt Count 285 x10E3/uL (150-450) 09/19/22 21:08 MPV 7.8 fl (6.3-10.7) 09/19/22 21:08 Neut % (Auto) 88.2 % (.) 09/19/22 21:08 Lymph % (Auto) 4.4 % (.) 09/19/22 21:08 Gibson % (Auto) 6.7 % (.) 09/19/22 21:08 Eos % (Auto) 0.1 % (.) 09/19/22 21:08 Baso % (Auto) 0.6 % (.) 09/19/22 21:08 Nucleat RBC Rel Count 0.0 /100 WBC (0-0.5) 09/19/22 21:08 Neut # (Auto) 9.3 x10E3/uL (1.8-7.7) H 09/19/22 21:08 Lymph # (Auto) 0.5 x10E3/uL (1.00-4.8) L 09/19/22 21:08 Gibson # (Auto) 0.7 x10E3/uL (0.0-0.8) 09/19/22 21:08 Eos # (Auto) 0.0 x10E3/uL (0.0-0.45) 09/19/22 21:08 Baso # (Auto) 0.1 x10E3/uL (0.0-0.2) 09/19/22 21:08 Monocyte Dist Width 18.24 % (0.00-20.00) 09/19/22 21:08 PHA Creatinine Clear 30.82 09/19/22 21:08 Sodium 134 mmol/L (136-146) L 09/19/22 21:08 Potassium 3.8 mmol/L (3.5-5.1) 09/19/22 21:08 Chloride 99 mmol/L (95-114) 09/19/22 21:08 Carbon Dioxide 20.8 mmol/L (22.0-30.0) L 09/19/22 21:08 Anion Gap 18.0 mEq/L (6.0-15.0) H 09/19/22 21:08 BUN 23 mg/dL (9-23) 09/19/22 21:08 Creatinine 1.09 mg/dL (0.44-1.03) H 09/19/22 21:08 Est GFR ( Amer) 58 mL/Min 09/19/22 21:08 Est GFR (Non-Af Amer) 48 mL/Min 09/19/22 21:08 Glucose 348 mg/dL (70-100) H 09/19/22 21:08 Calcium 9.0 mg/dL (8.2-10.2) 09/19/22 21:08 Total Bilirubin 1.1 mg/dL (0.3-1.2) 09/19/22 21:08 AST 44 U/L (10-42) H 09/19/22 21:08 ALT 19 U/L (10-60) 09/19/22 21:08 Alkaline Phosphatase 100 U/L (32-92) H 09/19/22 21:08 Total Creatine Kinase 745 U/L (22-269) H 09/19/22 21:08 Troponin I High Sens 138 pg/mL (0-15) H* 09/19/22 23:45 Total Protein 7.6 gm/dL (6.1-7.9) 09/19/22 21:08 Albumin 3.5 gm/dL (3.2-5.5) 09/19/22 21:08 Globulin 4.1 gm/dL 09/19/22 21:08 Albumin/Globulin Ratio 0.9 09/19/22 21:08 Lipase 26.0 U/L (22-51) 09/19/22 21:08 Urine Color Yellow (Yellow) 09/19/22 21:00 Urine Appearance Clear (Clear) 09/19/22 21:00 Urine pH 6.5 (5.0-9.0) 09/19/22 21:00 Ur Specific [place] 1.026 (1.001-1.030) 09/19/22 21:00 Urine Protein 300 mg/dL (Negative) H 09/19/22 21:00 Urine Glucose (UA) >=1000 mg/dL (Normal) H 09/19/22 21:00 Urine Ketones 1+ (Negative) H 09/19/22 21:00 Urine Occult Blood 2+ (Negative) H 09/19/22 21:00 Urine Nitrite Negative (Negative) 09/19/22 21:00 Urine Bilirubin Negative (Negative) 09/19/22 21:00 Urine Urobilinogen Normal mg/dL (Normal) 09/19/22 21:00 Ur Leukocyte Esterase Negative (Negative) 09/19/22 21:00 Urine RBC 5-9 /HPF (0-4) H 09/19/22 21:00 Urine WBC 1-2 /HPF (0-4) 09/19/22 21:00 Ur Squamous Epith Cells 0-1 /HPF (0-2) 09/19/22 21:00 Urine Bacteria None seen (None Seen) 09/19/22 21:00 Hyaline Casts 0-8 /LPF (0-8) 09/19/22 21:00 Documented By: Donn Joseph DO 09/20/22 04 50 Signed By: <Electronically signed by Donn Joseph DO> 09/20/22 0457 [facility] Work Phone: [phone] 465-102512-19-2022 Telephone encounter Note* Telephone Encounter - Tamera Calero - 09/07/2022 9:52 AM EST Patients son Alek calling in. He is following up from the ED Resident Consult. Patient was seen in ED/Admitted on 09/03/22. She was seen by Dental Resident Dr. Mccall. The resident recommended: patient has been advised to come to the [place] [facility] for comprehensive evaluation and treatmentof teeth #5-#8. There are no appointments that [facility] can schedule into. Please reach out to Alek to assist with scheduling. [id number] Miscellaneous Notes* Telephone Encounter - Callesen, Tamera - 09/07/2022 9:52 AM EST Patients son Alek calling in. He is following up from the ED Resident Consult. Patient was seen in ED/Admitted on 09/03/22. She was seen by Dental Resident Dr. Mccall. The resident recommended: patient has been advised to come to the [place] for comprehensive evaluation and treatmentof teeth #5-#8. There are no appointments that [facility] can schedule into. Please reach out to Alek to assist with scheduling. documented in this [id number] [id number] Michael Hewitt Date of : 1935 86 year old female Attending Juan Starkey MD PCP Yoko Helms MD Date of Admission 09/03/2022 Date of Discharge 09/05/2022 Discharge Diagnoses: Hospital Problems as of 09/05/2022 * (Principal) Syncope, unspecified syncope type Discharge Procedure Orders Basic Metabolic Panel Standing Status: Future Standing Exp. 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 Pt did not have full recollection of how she got in ambulance so possible concussion like syndrome. Incidental finding of COVID, does not endorse respiratory symptoms. Imaging pertinent for minimally displaced alveolar fracture, no intervention by plastic surgery. Dental consulted, recommended Tylenol pain management and warm soft diet. Cr elevated to 1.24, administered IV fluids, home Lasix held. Metoprolol held for concern of fall 2/2 to sinus bradycardia. TTE ordered to evaluate for cardiac causes of fall/syncope vs mechanical fall, pertinent for severe MV stenosis, dilated LA, RA, RV that is likely stable from prior ECHO (last ECHO was Jun 2022 with Cardiology). Repeat BMP to assess for JULIO, up-trended to 1.4, given 500cc LR. Cleared for discharge with home health care, requires outpatient BMP follow-up in 2-3 days prior to PCP visit. Home Lasik and K tablets discontinued until outpatient follow-up and repeat BMP Vitals: 09/05/22 1109 BP: 179/68 Pulse: 71 Resp: 16 Temp: SpO2: 97% Physical Exam on 09/05/2022 General: No acute discomfort, facial bruising. Eyes: PERRLA, EOMI, sclera anicteric. ENMT: MMM, no LAD. Pulm: CTAB, good air entry, effort normal. Card: RRR, S1/2 audible, no murmurs. Abd: Soft, non-tender, non-distended, no masses. BS+ Ext: No edema, atraumatic. Skin: Warm, dry, no rashes. Neuro: A AND O x3, no focal deficits. Procedures and Major Tests: XR CHEST 1 VIEW AP OR PA Result Date: 09/03/2022 Narrative: EXAMINATION: XR CHEST 1 VIEW AP OR PA 09/03/2022 08:58 PM CLINICAL HISTORY: Reason for Exam: Fall, Desat COMPARISON: None FINDINGS: Lines, tubes, and devices: EKG leads overlie the chest and abdomen. Lungs and pleura: No focal pulmonary consolidation, effusion or pneumothorax. Metallic snaps overlie the chest and abdomen. Cardiomediastinal silhouette: Enlarged cardiopericardial silhouette. Calcifications within the aortic arch. Median sternotomy wires. Aortic valve prosthesis. Musculoskeletal: Partially imaged plate and screw fixation of the left humerus fracture. IMPRESSION: No acute cardiopulmonary abnormality identified. MACRO: None CT T-SPINE W/O CONTRAST Result Date: 09/03/2022 Narrative: EXAMINATION: CT T-SPINE W/O CONTRAST 09/03/2022 09:44 PM CLINICAL HISTORY: Reason for Exam: Trauma; fall, chest wall tenderness COMPARISON: None TECHNIQUE: Thin axial images were obtained through the thoracic region without intravenous contrast. 2D sagittal and coronal reconstructions were obtained from the axial data. FINDINGS: Alignment: Normal. Vertebrae: No evidence of an acute fracture. No aggressive osseous lesions. Multilevel degenerative changes. Thoracic soft tissue: The paraspinal soft tissues planes are maintained. Canal and foramina: No evidence of significant spinal canal or neural foraminal stenosis. Partially imaged plate and screw fixation of the left humeral fracture. Hiatal hernia. Mitral valve annulus calcifications. Aortic valve prosthesis. Calcifications of the aortic arch. IMPRESSION: No acute fracture or malalignment of the thoracic spine. Please see separate report for CTA chest 09/03/2022 MACRO: None CT L-SPINE W/O CONTRAST Result Date: 09/03/2022 Narrative: EXAMINATION: CT L-SPINE W/O CONTRAST 09/03/2022 09:44 PM CLINICAL HISTORY: Reason for Exam: Trauma; fall, chest wall tenderness COMPARISON: None TECHNIQUE: Thin axial images were obtained through the lumbar region without intravenous contrast. 2D sagittal and coronal reconstructions were obtained from the axial data. FINDINGS: Alignment: Normal. Vertebrae: No evidence of an acute fracture. No aggressive osseous lesions. Multilevel (more content not included)...[facility] [id number] NoteED SW consulted by inpatient provider for home care referral as pt being discharged. Provider would like pt set up with home care prior to discharge. Provider referred to ED case manger to facilitate referral .[facility] [id number] History of Present illness Narrative* Praveena Alanis RN - 09/05/2022 10:28 AM EST UTILIZATION REVIEW AND STAFF BED STATUS CHANGE [facility] Utilization Review team and medical staff reviewed the clinical care for this patient using [facility] guidelines to determine appropriate bed status. The outcome of this review and discussions is to change the status from inpatient to observation. * Elier Camarillo MD - 09/04/2022 7:38 AM EST Plastic Surgery Update Note: Imaging and exam reviewed with Dr. Mayers this morning. Alveolar fracture is minimally displaced.Recommend inpatient dental consult for splinting of teeth for displaced teeth/malocclusion. No surgical intervention for alveolar fracture. Please call back for further concerns. Elier Camarillo MD Plastic Surgery * Deonte Murguia RN - 09/04/2022 6:48 AM EST This patient has initially tested positive for Sars-CoV-2 via PCR on 09/04/2022 This test may have been performed at an outside hospital or facility. This patient is due to have their COVID precautions discontinued on 09/17/2022 In accordance with the time-based isolation discontinuation strategy, COVID precautions will now bediscontinued 14 days after the first + test. For more information refer to the [employer]. * Jaziel Madsen DO - 09/04/2022 3:36 AM EST Images from the original note were not included. Internal Medicine Group Home Plan Note Michael Hewitt [id number] ACUTE02/[id number] Today's date: 09/04/2022 Admission date: 09/03/2022 CHIEF COMPLAINT: fall HPI: 86 year old female with PMH of HFpEF, hx of AV replacement, HTN, MV stenosis, CKD (unknown baseline), hx of syncope (unclear cause), and DM Type 2 who presents after a fall from standing. Ms. Hewitt gets most of her medical care at outside hospitals. In the ED, hypoxic to 83%, WBC 12 with left shift, Cr 1.24, HS troponin 79, BNP 894, CT chest suggestive of pulmonary edema, and admitted to medicine. Patient seen and examined at bedside. Ms. Hewitt is accompanied by her son at the bedside. Ms. Hewitt is doing ok today. She states she thinks she tripped on something in the grocery store and fell down. She had no chest pain, light headedness, confusion, LOC, or other symptoms with it. She takes all of her medications at home. She strongly denies feeling dizzy before falling. No alcohol use, no drug use, no tobacco use. Lives by herself, sons are close by. Pertinent Labs/Imaging (personally reviewed): Gen: White female in NAD. Good affect. HEENT: Normocephalic, atraumatic. EOMI. Oral and mucus membranes dry. Noted dried blood in mouth. Neck: Supple. No lymphadenopathy CV: Regular rate and rhythm. No murmurs. No S3 or S4 noted. No JVD present. Mechanical noted. Lungs: Clear to auscultation bilaterally. No wheezes, rales, or rhonchi. Good air movement. Abdomen: Soft. Non-tender. Non-distended. No organomegaly. Normoactive bowel sounds. Extremities: No clubbing, cyanosis, or edema. 2+ peripheral pulses. Neuro: A&Ox3. No focal deficits appreciated. Skin: Warm and well perfused. ASSESSMENT AND PLAN: #Fall #Sinus Bradycardia #Compensated HFpEF #Pulmonary Hypertension #Myocardial Injury -denies LOC or other symptoms before fall -no chest pain, SOB, or other symptoms -patient feels it was a mechanical fall -appears dry on examination, does not appear fluid overloaded -could be related to pulmonary hypertension, bradycardia -has had cough recently, very dry -differential: mechanical fall, arrhythmia (possible given complex cardiac hx, sinus bradycardia onarrival), dehydration (suggested by JULIO), vasovagal syncope, orthostatic syncope, symptomatic /pulmHTN, stroke (no focal deficits), Plan: -restart home meds -echocardiogram in AM -telemetry monitoring, will need event detector on discharge -PT/OT -orthostatic vitals, will give 500 cc LR, hold lasix at this time -check COVID/flu -hold metoprolol given sinus bradycardia and concern for syncope, consider cardiology consult givenhx of HF in setting of sinus bradycardia and need for beta blockade #Leukocytosis -WBC of 12 with left shift -could be reactive vs. Infectious etiology -CTA not suggestive of infectious etiology Plan: -check UA -monitor for signs of infection #JULIO -unclear creatinine baseline -elevated BUN/creatinine ratio Plan: -give 500 cc of LR -trend BMP Chronic Issues/Other Issues: #AV Replacement #MV Stenosis #DM Type 2 -check A1c, lipids Code Status: Patient has living will and HCPOA (her son) already established. Code status reexplained at length. Patient indicates she does not want resuscitated and understands risks and benefits. Therefore, patient is DNRCCADNI at this time. Rest of plan per health information internship note. Jaziel Madsen DO PGY-3 [id number] * Joya. Wilkins DO - 09/04/2022 12:02 AM EST Incidental Findings Discussion held with Michael Hewitt regarding incidental findings from the diagnostic test(s,) CAT scan of chest and CAT scan of cervical spine The incidental findings letter and a copy of the radiographic report has been provided to Michael Hewitt, as well as filed in the patient s medical record. The Patient has agreed to follow up with their PCP in regards to these findings: INCIDENTALS: Possible multinodular thyroid goiter with possible small nodules measuring up to approximately 5mm. Enlarged main pulmonary artery measuring up to 3.5cm suggestive of pulmonary hypertension. Franky Moffett DO documented in this [id number] History of Present illness Narrative* Jessica Narayan LSW - 09/05/2022 8:31 AM EST ED SW consulted by inpatient provider for home care referral as pt being discharged. Provider wouldlike pt set up with home care prior to discharge. Provider referred to ED case manger to facilitate referral . documented in this [id number] NoteOCCUPATIONAL THERAPY INITIAL EVALUATION Patient seen from 1354 to 1410 on ED unit for 16 minutes. Reason for Admit: s/p fall from standing in grocery store Diagnosis: - sinus bradycardia - compensated HFpEF - pulmonary hypertension - myocardial injury - right maxillary alveolar ridge fx - partial subluxation of teeth 5, 6, 7, 8, 9 Precautions/Activity Order: COVID, DNR-CCA-DNI, full liquid diet, activity as tolerated Procedures this admit: none Past Medical and Surgical History: PMH: Past Medical History: Diagnosis Date (HFpEF) heart failure with preserved ejection fraction (HCC) CKD (chronic kidney disease) stage 3, GFR 30-59 ml/min ([facility]) Essential (primary) hypertension Left humeral fracture Pulmonary hypertension ([facility]) S/P aortic valve replacement with 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) Severe aortic regurgitation Severe mitral valve stenosis Type 2 diabetes mellitus without complication, with long-term current use of insulin ([facility]) PSH: Past Surgical History: Procedure Laterality Date APPENDECTOMY CHOLECYSTECTOMY ORIF DISTAL FEMUR FRACTURE SUBJECTIVE: Patient Subjective: I'll show you how we do it (re: son assisting pt getting out of bed since ED admission) Patient Identified Goal(s): to return home Home Living Situation Prior Functional Status: Independent Living independent with Activities of Daily Living Independent Driving Independent Ambulation without assistive device Independent with Instrumental Activities of Daily Living No additional falls last 6 months Assistance Available at Home: lives alone. Son reports 12/04 assist available at d/c Patient lives in a 1 story home 2 stairs to enter. Full Bathroom on 1 level Bedroom on 1 level. Equipment available at home: cane, RW, BSC OBJECTIVE: Patient Identification: patient's id band and date of . Risks and benefits of occupational therapy: Patient informed of risks and benefits of treatment Appearance: supine in bed on arrival, hospital gown, BP cuff, EKG, SpO2, ecchymosis to chin, son at bedside Alertness: Awake Affect: flat Cooperation/Behavior: initially slightly irritable however became more pleasant throughout session, cooperative Communication: WFL Pain: Pain ratin/10, Location: n/a Pain Relief Interventions Implemented: None required; No pain at this time Self Care: Assistance Level Dep Max Mod Min CG CS DS ME I Set-Up Comment Feeding x Grooming/Hygiene x Anticipate Bathing:UB x Simulated sponge bathing Bathing:LB x Anticipate Dressing:UB x Simulated with functional reach Dressing: LB x Anticipate. Attempt figure 4 positioning seated on gurney however gurney not completely flat and throwing off pt's balance. Toileting x Anticipate for clothing management Transfers/Bed Mobility: Assistance Level Dep Max Mod Min CG CS DS ME I Set-Up Comment Toilet Transfers x Anticipate based on chair transfer Bed Transfers x x Sit to stand from EOB. Stand pivot from bed to chair with b/l BUS AND RAIL OPERATOR (CG x 2), slightly unsteady but no overt LOB noted. Stand to sit in chair. Sit to stand from chair to RW with good hand placement CS. Short distance functional mobility within room, improved balance with RW, CS. Stand to sit in chair. Bed Mobility x Supine to sit EOB with min A from son (at pt request) Pt seated in chair end of session with call light and phone within reach and all current needs met. Instructed pt to use call light for nursing assist for return to bed or for mobility needs; pt voiced understanding. Endurance for Self Care: Good, SpO2 >97% on RA Static Sitting Balance: Good Dynamic Sitting Balance: Good UE Motor: BUE AROM WFL. RUE MMT grossly 3+/5 throughout. L shoulder NT as pt with recent shoulder surgery (?), distal grossly 3+/5 Vision/Perception: WFL Cognition: Orientation: Oriented to person and place Follows Commands: one step commands Attention: WNL Memory: needs further assessment Problem Solving: Needs further assessment Safety/Judgement: requires min cues for saftey during functional transfers Sequencing: Able to sequence simple ADLs without cues. Other Specialized Tests: None Patient/Family Education: Instructed patient in roles of therapy, OOBTC for 1 hour, NOT to mobilize without staff, safe transfer techniques, use of RW for mobility Patient up in chair with call light in reach. DME: With Patients permission ordered no equipment via [employer] Order. If any questions contact [facility] DME Provider at [phone]. 6 Clicks Daily Activity OT 09/04/22 Help from another person Eating meals 4 Help from another person taking care of personal grooming 3 Help from another person bathing 3 Help from another person putting on and taking off regular upper body clothing 3 Help from another person putting on and taking off regular lower body clothing 3 Help from another person toileting (more content not included)...[facility] [id number] NotePHYSICAL THERAPY ACUTE EVALUATION Referral received, chart reviewed. Patient seen from 1354 to 1411 on ED unit for 17 minutes. Co-eval with OT for safe pt handling and progression of mobility. Admit date/time: 09/03/2022 8:35 PM Reason for Admit: 86 y.o F who presented to ED s/p fall from standing. Diagnosis: Fall Alveolar ridge fracture Multiple avulsed teeth Covid Pulmonary Hypertension Leukocytosis JULIO Precautions: Falls DNRCC-A-DNI Full liquid diet Covid (on px 09/04/22-09/17/22) Activity as tolerated Procedures this admit: None Imaging incidentals: INCIDENTALS: Possible multinodular thyroid goiter with possible small nodules measuring up to approximately 5mm. 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 Risks and Benefits of physical therapy: Patient informed of risks and benefits of treatment SUBJECTIVE: Patient Subjective: Well this is how Alek and I do it Patient Identified Goal(s): To go home [employer] Status: Ind for functional mobility, ADLs, IADLs without device. (+) drives Falls: 1 in past 6 months that led to this hospitalization Home with first floor setup: 2 steps to enter with rails. 0 steps to bedroom/bathroom Assistance available: Lives alone, has family who can provide 24/7 assistance Equipment available: cane , rolling walker, and bedside commode OBJECTIVE: Appearance: Pt supine in bed, son Alek present, Pulse Oximeter, BP cuff, and hep locked IV Behavior: Awake, pleasant, cooperative Oriented x appropriately Follows 1 step commands consistently Pain: Site/Location: denies pain; Pain Scale: 0/10 Pain Relief Interventions Implemented: None required; No pain at this time Passive ROM: Not formally tested however observed WFL for basic level of mobility Strength/Active ROM: WFL B LE grossly 4+/5 Mobility: Supine to short sit: MinAx1 at trunk to elevate Sitting balance: Good Sit to stand: From elevated cart, CGA without device Transfers: Stand pivot, with B BUS AND RAIL OPERATOR, CGA, pt demos mild trunk flexion and short shuffling steps Ambulation/Gait: 10'x1, RW, CGA progressing to CS. Pt demos improved fluidity of movement and improved posture. Step through pattern with slow aristides, no LOB Endurance: Fair, pt denies dizziness, SOB, and fatigue with activity Patient/Family Education: Instructed Patient in roles of therapy. Sitting up in chair at least 1 hr and for all meals Not getting up without assistance from nursing Patient up in chair with call light in reach. Son Alek nation, RN notified of pt position. DME: With Patients permission ordered no equipment via ActionFlow Order. [facility] [phone]. 6 Clicks Basic Mobility PT 09/04/2022 Difficulty turning over in bed 3 Difficulty sitting down and standing up from a chair with arms 3 Difficulty moving from lying on back to sitting on the side of the bed 3 Help from another person moving to and from bed to a chair 3 Help from another person to walk in hospital room 3 Help from another person climbing 3-5 steps with a railing 3 PT 6 Clicks Score 18 6 Click Score Guidelines: 1 - Total = Requires total assistance, or cannot do at all. 2 - A lot = Requires a lot of help (maximun to moderate assistance) Can use assistive devices. 3 - A little = Requires a little help (supervision, minimal assistance) Can use assistive devices. 4 - None = Does not require any help and does the activity independently. Can use assistive devices. ASSESSMENT: Michael Hewitt is a 86 year old yo female with diagnosis as stated above. Pt is functioning near her baseline level of mobility but has mild impairment in endurance and balance. Patient is functionally appropriate for discharge home with 24/7 supervision once medically cleared. Will continue to follow patient while in hospital as appropriate. Recommend Home Physical Therapy. Recommend use of RW at discharge for all functional mobility. Problems: Decreased functional mobility Decreased endurance Decreased balance Rehabilitation Potential: Good Goals (to be achieved by discharge from acute care): Patien (more content not included)...[facility] [id number] Consult note* Doretha Polk OT - 09/04/2022 3:19 PM ESTAssociated Order(s): IP OCCUPATIONAL THERAPY SERVICE REQUEST OCCUPATIONAL THERAPY INITIAL EVALUATION Patient seen from 1354 to 1410 on ED unit for 16 minutes. Reason for Admit: s/p fall from standing in grocery store Diagnosis: - sinus bradycardia - compensated HFpEF - pulmonary hypertension - myocardial injury - right maxillary alveolar ridge fx - partial subluxation of teeth 5, 6, 7, 8, 9 Precautions/Activity Order: COVID, DNR-CCA-DNI, full liquid diet, activity as tolerated Procedures this admit: none Past Medical and Surgical History: PMH: Past Medical History: Diagnosis Date (HFpEF) heart failure with preserved ejection fraction (HCC) CKD (chronic kidney disease) stage 3, GFR 30-59 ml/min (HCC) Essential (primary) hypertension Left humeral fracture Pulmonary hypertension (HCC) S/P aortic valve replacement with 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) Severe aortic regurgitation Severe mitral valve stenosis Type 2 diabetes mellitus without complication, with long-term current use of insulin ([facility]) PSH: Past Surgical History: Procedure Laterality Date APPENDECTOMY CHOLECYSTECTOMY ORIF DISTAL FEMUR FRACTURE SUBJECTIVE: Patient Subjective: I'll show you how we do it (re: son assisting pt getting out of bed since ED admission) Patient Identified Goal(s): to return home Home Living Situation Prior Functional Status: Independent Living independent with Activities of Daily Living Independent Driving Independent Ambulation without assistive device Independent with Instrumental Activities of Daily Living No additional falls last 6 months Assistance Available at Home: lives alone. Son reports 12/04 assist available at d/c Patient lives in a 1 story home 2 stairs to enter. Full Bathroom on 1 level Bedroom on 1 level. Equipment available at home: cane, RW, BSC OBJECTIVE: Patient Identification: patient's id band and date of . Risks and benefits of occupational therapy: Patient informed of risks and benefits of treatment Appearance: supine in bed on arrival, hospital gown, BP cuff, EKG, SpO2, ecchymosis to chin, son atbedside Alertness: Awake Affect: flat Cooperation/Behavior: initially slightly irritable however became more pleasant throughout session,cooperative Communication: WFL Pain: Pain ratin/10, Location: n/a Pain Relief Interventions Implemented: None required; No pain at this time Self Care: Assistance Level Dep Max Mod Min CG CS DS ME I Set-Up Comment Feeding x Grooming/Hygiene x Anticipate Bathing:UB x Simulated sponge bathing Bathing:LB x Anticipate Dressing:UB x Simulated with functional reach Dressing: LB x Anticipate. Attempt figure 4 positioning seated on gurney however gurney not completely flat and throwing off pt's balance. Toileting x Anticipate for clothing management Transfers/Bed Mobility: Assistance Level Dep Max Mod Min CG CS DS ME I Set-Up Comment Toilet Transfers x Anticipate based on chair transfer Bed Transfers x x Sit to stand from EOB. Stand pivot from bed to chair with b/l BUS AND RAIL OPERATOR (CG x 2), slightly unsteady but no overt LOB noted. Stand to sit in chair. Sit to stand from chair to RW with good hand placement CS. Short distance functional mobility within room, improved balance with RW, CS. Stand to sit in chair. Bed Mobility x Supine to sit EOB with min A from son (at pt request) Pt seated in chair end of session with call light and phone within reach and all current needs met.Instructed pt to use call light for nursing assist for return to bed or for mobility needs; pt voiced understanding. Endurance for Self Care: Good, SpO2 >97% on RA Static Sitting Balance: Good Dynamic Sitting Balance: Good UE Motor: BUE AROM WFL. RUE MMT grossly 3+/5 throughout. L shoulder NT as pt with recent shoulder surgery (?), distal grossly 3+/5 Vision/Perception: WFL Cognition: Orientation: Oriented to person and place Follows Commands: one step commands Attention: WNL Memory: needs further assessment Problem Solving: Needs further assessment Safety/Judgement: requires min cues for saftey during functional transfers Sequencing: Able to sequence simple ADLs without cues. Other Specialized Tests: None Patient/Family Education: Instructed patient in roles of therapy, OOBTC for 1 hour, NOT to mobilizewithout staff, safe transfer techniques, use of RW for mobility Patient up in chair with call light in reach. DME: With Patients permission ordered no equipment via ActionFlow Order. If any questions contact [facility] DME Provider at [phone]. 6 Clicks Daily Activity OT 09/04/22 Help from another person Eating meals 4 Help from another person taking care of personal grooming 3 Help from another person bathing 3 Help from another person putting on and taking off regular upper body clothing 3 Help from another person putting on and taking off regular lower body clothing 3 Help from another person toileting 3 OT 6 Clicks Score 19 6 Click Score Guidelines: 1 - Unable = Total/Dependent Assist 2 - A lot = Max/Moderate Assist 3 - A little = Minimum/Contact Guard Assist/Supervision 4 - Non = Modified Parker/Independent ASSESSMENT: Anticipate patient will be appropriate for discharge home with 12/04 family supervision for safe completion of ADLs/functional mobility. Recommend use of RW when mobilizing for improved balance. Will continue to follow patient while in hospital as appropriate. Recommend Home Occupational Therapy. Rehabilitation Potential: Good Problem List: decreased ADLs, decreased endurance, decreased functional transfers/mobility, impaired balance, decreased home management tasks/IADLs, and decreased functional activity tolerance Goals (to be achieved by discharge from acute care): Patient will perform grooming with Modified Independent Patient will dress upper body with Modified Independent Patient will dress lower body with Distant supervision Patient will perform bed mobility with Modified Independent Patient will perform bathing with Distant supervision Patient will perform toileting with Distant supervision Patient will perform bed transfers with Distant supervision Patient will perform commode transfers with Distant supervision PLAN: Michael Hewitt will be seen 1-3 times a week. Treatment to include: Functional AROM/Strengthening, functional mobility training, ADL retraining, functional endurance activities, home management retraining, functional task simulation, patient / family education and discharge planning, and pain Management able to discuss the evaluation findings and treatment plan with the patient/family. The patient/family did participate in the development of plan and goals. Doretha Polk OTR/L NA = Not Assessed, I = Independent, ME = Modified Independent, Sup = Supervised, Set up = Physical Assistance for Set-up Only, Min = Minimal Assistance, Mod = Moderate Assistance, Max = Max assistance; Dep = Dependent; AROM = Active Range of Motion;PROM=Passive Rangeof Motion; MMT = Manual Muscle Test; UB = Upper Body; LB = Lower Body [id number] Consult note* Doretha Polk OT - 09/04/2022 3:19 PM EST Associated Order(s): IP OCCUPATIONAL THERAPY SERVICE REQUEST OCCUPATIONAL THERAPY INITIAL EVALUATION Patient seen from 1354 to 1410 on ED unit for 16 minutes. Reason for Admit: s/p fall from standing in grocery store Diagnosis: - sinus bradycardia - compensated HFpEF - pulmonary hypertension - myocardial injury - right maxillary alveolar ridge fx - partial subluxation of teeth 5, 6, 7, 8, 9 Precautions/Activity Order: COVID, DNR-CCA-DNI, full liquid diet, activity as tolerated Procedures this admit: none Past Medical and Surgical History: PMH: Past Medical History: Diagnosis Date (HFpEF) heart failure with preserved ejection fraction (HCC) CKD (chronic kidney disease) stage 3, GFR 30-59 ml/min ([facility]) Essential (primary) hypertension Left humeral fracture Pulmonary hypertension (HCC) S/P aortic valve replacement with 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) Severe aortic regurgitation Severe mitral valve stenosis Type 2 diabetes mellitus without complication, with long-term current use of insulin ([facility]) PSH: Past Surgical History: Procedure Laterality Date APPENDECTOMY CHOLECYSTECTOMY ORIF DISTAL FEMUR FRACTURE SUBJECTIVE: Patient Subjective: I'll show you how we do it (re: son assisting pt getting out of bed since ED admission) Patient Identified Goal(s): to return home Home Living Situation Prior Functional Status: Independent Living independent with Activities of Daily Living Independent Driving Independent Ambulation without assistive device Independent with Instrumental Activities of Daily Living No additional falls last 6 months Assistance Available at Home: lives alone. Son reports 12/04 assist available at d/c Patient lives in a 1 story home 2 stairs to enter. Full Bathroom on 1 level Bedroom on 1 level. Equipment available at home: cane, RW, BSC OBJECTIVE: Patient Identification: patient's id band and date of . Risks and benefits of occupational therapy: Patient informed of risks and benefits of treatment Appearance: supine in bed on arrival, hospital gown, BP cuff, EKG, SpO2, ecchymosis to chin, son atbedside Alertness: Awake Affect: flat Cooperation/Behavior: initially slightly irritable however became more pleasant throughout session,cooperative Communication: WFL Pain: Pain ratin/10, Location: n/a Pain Relief Interventions Implemented: None required; No pain at this time Self Care: Assistance Level Dep Max Mod Min CG CS DS ME I Set-Up Comment Feeding x Grooming/Hygiene x Anticipate Bathing:UB x Simulated sponge bathing Bathing:LB x Anticipate Dressing:UB x Simulated with functional reach Dressing: LB x Anticipate. Attempt figure 4 positioning seated on gurney however gurney not completely flat and throwing off pt's balance. Toileting x Anticipate for clothing management Transfers/Bed Mobility: Assistance Level Dep Max Mod Min CG CS DS ME I Set-Up Comment Toilet Transfers x Anticipate based on chair transfer Bed Transfers x x Sit to stand from EOB. Stand pivot from bed to chair with b/l BUS AND RAIL OPERATOR (CG x 2), slightly unsteady but no overt LOB noted. Stand to sit in chair. Sit to stand from chair to RW with good hand placement CS. Short distance functional mobility within room, improved balance with RW, CS. Stand to sit in chair. Bed Mobility x Supine to sit EOB with min A from son (at pt request) Pt seated in chair end of session with call light and phone within reach and all current needs met.Instructed pt to use call light for nursing assist for return to bed or for mobility needs; pt voiced understanding. Endurance for Self Care: Good, SpO2 >97% on RA Static Sitting Balance: Good Dynamic Sitting Balance: Good UE Motor: BUE AROM WFL. RUE MMT grossly 3+/5 throughout. L shoulder NT as pt with recent shoulder surgery (?), distal grossly 3+/5 Vision/Perception: WFL Cognition: Orientation: Oriented to person and place Follows Commands: one step commands Attention: WNL Memory: needs further assessment Problem Solving: Needs further assessment Safety/Judgement: requires min cues for saftey during functional transfers Sequencing: Able to sequence simple ADLs without cues. Other Specialized Tests: None Patient/Family Education: Instructed patient in roles of therapy, OOBTC for 1 hour, NOT to mobilizewithout staff, safe transfer techniques, use of RW for mobility Patient up in chair with call light in reach. DME: With Patients permission ordered no equipment via ActionFlow Order. If any questions contact [facility] DME Provider at [phone]. 6 Clicks Daily Activity OT 09/04/22 Help from another person Eating meals 4 Help from another person taking care of personal grooming 3 Help from another person bathing 3 Help from another person putting on and taking off regular upper body clothing 3 Help from another person putting on and taking off regular lower body clothing 3 Help from another person toileting 3 OT 6 Clicks Score 19 6 Click Score Guidelines: 1 - Unable = Total/Dependent Assist 2 - A lot = Max/Moderate Assist 3 - A little = Minimum/Contact Guard Assist/Supervision 4 - Non = Modified Parker/Independent ASSESSMENT: Anticipate patient will be appropriate for discharge home with /7 family supervision for safe completion of ADLs/functional mobility. Recommend use of RW when mobilizing for improved balance. Will continue to follow patient while in hospital as appropriate. Recommend Home Occupational Therapy. Rehabilitation Potential: Good Problem List: decreased ADLs, decreased endurance, decreased functional transfers/mobility, impaired balance, decreased home management tasks/IADLs, and decreased functional activity tolerance Goals (to be achieved by discharge from acute care): Patient will perform grooming with Modified Independent Patient will dress upper body with Modified Independent Patient will dress lower body with Distant supervision Patient will perform bed mobility with Modified Independent Patient will perform bathing with Distant supervision Patient will perform toileting with Distant supervision Patient will perform bed transfers with Distant supervision Patient will perform commode transfers with Distant supervision PLAN: Michael Hewitt will be seen 1-3 times a week. Treatment to include: Functional AROM/Strengthening, functional mobility training, ADL retraining, functional endurance activities, home management retraining, functional task simulation, patient / family education and discharge planning, and pain Management able to discuss the evaluation findings and treatment plan with the patient/family. The patient/family did participate in the development of plan and goals. Doretha Polk OTR/L NA = Not Assessed, I = Independent, ME = Modified Independent, Sup = Supervised, Set up = Physical Assistance for Set-up Only, Min = Minimal Assistance, Mod = Moderate Assistance, Max = Max assistance; Dep = Dependent; AROM = Active Range of Motion;PROM=Passive Rangeof Motion; MMT = Manual Muscle Test; UB = Upper Body; LB = Lower Body * Varsha Marroquin PT - 09/04/2022 1:40 PM ESTAssociated Order(s): IP PHYSICAL THERAPY SERVICE REQUEST PHYSICAL THERAPY ACUTE EVALUATION Referral received, chart reviewed. Patient seen from 1354 to 1411 on ED unit for 17 minutes. Co-eval with OT for safe pt handling and progression of mobility. Admit date/time: 09/03/2022 8:35 PM Reason for Admit: 86 y.o F who presented to ED s/p fall from standing. Diagnosis: Fall Alveolar ridge fracture Multiple avulsed teeth Covid Pulmonary Hypertension Leukocytosis JULIO Precautions: Falls DNRCC-A-DNI Full liquid diet Covid (on px 12/16/22-09/17/22) Activity as tolerated Procedures this admit: None Imaging incidentals: INCIDENTALS: Possible multinodular thyroid goiter with possible small nodules measuring up to approximately 5mm. 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 Risks and Benefits of physical therapy: Patient informed of risks and benefits of treatment SUBJECTIVE: Patient Subjective: Well this is how Alek and I do it Patient Identified Goal(s): To go home [employer] Status: Ind for functional mobility, ADLs, IADLs without device. (+) drives Falls: 1 in past 6 months that led to this hospitalization Home with first floor setup: 2 steps to enter with rails. 0 steps to bedroom/bathroom Assistance available: Lives alone, has family who can provide 24/7 assistance Equipment available: cane , rolling walker, and bedside commode OBJECTIVE: Appearance: Pt supine in bed, son Alek present, Pulse Oximeter, BP cuff, and hep locked IV Behavior: Awake, pleasant, cooperative Oriented x appropriately Follows 1 step commands consistently Pain: Site/Location: denies pain; Pain Scale: 0/10 Pain Relief Interventions Implemented: None required; No pain at this time Passive ROM: Not formally tested however observed WFL for basic level of mobility Strength/Active ROM: WFL B LE grossly 4+/5 Mobility: Supine to short sit: MinAx1 at trunk to elevate Sitting balance: Good Sit to stand: From elevated cart, CGA without device Transfers: Stand pivot, with B BUS AND RAIL OPERATOR, CGA, pt demos mild trunk flexion and short shuffling steps Ambulation/Gait: 10'x1, RW, CGA progressing to CS. Pt demos improved fluidity of movement and improved posture. Step through pattern with slow aristides, no LOB Endurance: Fair, pt denies dizziness, SOB, and fatigue with activity Patient/Family Education: Instructed Patient in roles of therapy. Sitting up in chair at least 1 hr and for all meals Not getting up without assistance from nursing Patient up in chair with call light in reach. Son Alek present, RN notified of pt position. DME: With Patients permission ordered no equipment via ActionFlow Order. If any questions contact [facility] DME Provider at [phone]. 6 Clicks Basic Mobility PT 09/04/2022 Difficulty turning over in bed 3 Difficulty sitting down and standing up from a chair with arms 3 Difficulty moving from lying on back to sitting on the side of the bed 3 Help from another person moving to and from bed to a chair 3 Help from another person to walk in hospital room 3 Help from another person climbing 3-5 steps with a railing 3 PT 6 Clicks Score 18 6 Click Score Guidelines: 1 - Total = Requires total assistance, or cannot do at all. 2 - A lot = Requires a lot of help (maximun to moderate assistance) Can use assistive devices. 3 - A little = Requires a little help (supervision, minimal assistance) Can use assistive devices. 4 - None = Does not require any help and does the activity independently. Can use assistive devices. ASSESSMENT: Michael Hewitt is a 86 year old yo female with diagnosis as stated above. Pt is functioning near herbaseline level of mobility but has mild impairment in endurance and balance. Patient is functionally appropriate for discharge home with 24/7 supervision once medically cleared. Will continue to follow patient while in hospital as appropriate. Recommend Home Physical Therapy. Recommend use of RW at discharge for all functional mobility. Problems: Decreased functional mobility Decreased endurance Decreased balance Rehabilitation Potential: Good Goals (to be achieved by discharge from acute care): Patient will achieve acceptable level of pain control to allow participation in therapy. Patient will increase bed mobility to independent Patient will perform sit to/from stand with rolling walker with modified independent Patient will ambulate 150 feet with rolling walker with modified independent Patient will ascend/descend 2 stairs with 1 rail(s) and no device with distant supervision Patient will increase ROM/Strength/Endurance/Balance to allow for above goals. Patient/Family independent with exercise program/precautions. PLAN OF CARE: Frequency: Patient to be seen 3-5 times a week Interventions: Functional mobility ROM/Strengthening Home exercise program Discharge planning and equipment ordering as needed Patient /Family education The evaluation findings and treatment plan were discussed with the patient. The patient indicated understanding and agreement with the plan. Varsha Marroquin PT, DPT NA = Not Assessed, I = Independent, ME = Modified Independent, Sup = Supervised, Set up = Physical Assistance for Set-up Only, Min = Minimal Assistance, Mod = Moderate Assistance, Max = Max assistance; Dep = Dependent; AROM = Active Range of Motion; PROM = Passive Range of Motion; MMT = Manual Muscle Test; LE = Lower Extremity * Patito Sorenson DDS - 09/03/2022 9:39 PM EST Dental Consult The Dental Department was asked to consult on this patient by Emergency Department No chief complaint on file. 86 year old was admited for trauma and reports the following symptoms: History of present illness: No past medical history on file. No current facility-administered medications for this encounter. No current outpatient medications on file. Not on File Radiographic Examination No x-ray taken NOTE: ED contacted regarding this patient, patient had a trauma earlier today and I was consulted for her teeth from #5-#8 I could not see the entire image but patient is missing lower right posterior teeth, it looks like in the CT that patient has crown/ bridge in the maxillary right side. Severe Bone loss can be seen. Recommendations: It is recommended for patient to get a comprehensive examination done at [facility]. Panoramic and full mouth series of radiographs needed for definitive diagnosis. Follow-up [facility] Dentistry office after patient gets discharged from ED Patito Sorenson DDS * Elier Camarillo MD - 09/03/2022 9:20 PM EST PLASTIC SURGERY FACIAL TRAUMA CONSULT Name: Michael Hewitt : 1935 HPI This 86 year old female date of injury was 09/03/2022. The patient was transported to [facility] by EMS. Initial evaluation at [facility]. Patient fell from standing at the grocery store earlier today hitting her face. Denies loss of consciousness. No blood thinners. She had imaging that showed incomplete dental extraction of multiple teeth and partial alveolar ridge fracture. Plastic Surgery consulted for alveolar ridge fracture. History obtained from son who is present at bedside. Medical history includes severe aortic stenosis s/p aortic valve replacement, acute on chronic CHF, CKD, DM, HTN. She lives at home alone but close to other family members who can help her. MECHANISM OF INJURY: Fall: from standing LOSS OF CONSCIOUSNESS: No ASSOCIATED INJURIES: None ROS: negative except per HPI PHYSICAL EXAMINATION There were no vitals filed for this visit. CONSTITUTIONAL: nad, conversational HEENT Visual Inspection: Swelling and ecchymosis of right lower chin, lip Lacerations: none Palpable Skeletal Deformities: none Nasal Examination: no external deformity Oral Examination: intraoral ecchymosis of right maxillary alveolar ridge Dentition: partial dentition with fracture of right maxillary alveolus Occlusion: occlusal stepoff at fracture site between teeth #8 and #9 EYE EXAMINATION: Eyelids: normal bilaterally Anterior Chamber: clear bilaterally Vision unable to examine Pupils PERRLA Eye Level normal bilateral Extraocular Motion EOMI- bilateral Cranial Nerves: all branches CN V intact and all branches CN VII intact Neck: unable to examine CV: regular rate Respiratory: NC in place XRAY/CT Studies: CT FACE 09/03/2022: Findings: Incomplete traumatic dental extraction involving tooth numbers 5, 6, 7, 8 and 9 associated with a nondisplaced fracture of the adjacent alveolar ridge. Soft tissue swelling superficial to the right maxilla and right mandibular body, without underlying fracture. LABS Basic Metabolic Panel None ASSESSMENT/PLAN: 86 year old female with fracture of right maxillary alveolar ridge associated withpartial subluxation of teeth 5, 6, 7, 8, 9. Occlusal plane is off with stepoff between teeth #8 and#9. Fracture site is mobile. Will discuss with attending role for closed reduction with resin splint fixation of teeth. Recommend dental consult Soft diet Oral hygiene using soft brush and mouth rinsing with Peridex twice a day Will discuss with attending role for closed reduction with resin splint fixation of teeth Remainder per primary team Will arrange follow up in Plastic Surgery Clinic at discharge These findings and recommendations will be discussed with the attending Plastic Surgery Staff On-Call: Riana Hewitt [phone] Elier Camarillo MD Plastic Surgery PGY-6 Service pager [phone] documented in this [id number] Consult note* Varsha Marroquin, PT - 09/04/2022 1:40 PM ESTAssociated Order(s): IP PHYSICAL THERAPY SERVICE REQUEST PHYSICAL THERAPY ACUTE EVALUATION Referral received, chart reviewed. Patient seen from 1354 to 1411 on ED unit for 17 minutes. Co-eval with OT for safe pt handling and progression of mobility. Admit date/time: 09/03/2022 8:35 PM Reason for Admit: 86 y.o F who presented to ED s/p fall from standing. Diagnosis: Fall Alveolar ridge fracture Multiple avulsed teeth Covid Pulmonary Hypertension Leukocytosis JULIO Precautions: Falls DNRCC-A-DNI Full liquid diet Covid (on px 09/04/22-09/17/22) Activity as tolerated Procedures this admit: None Imaging incidentals: INCIDENTALS: Possible multinodular thyroid goiter with possible small nodules measuring up to approximately 5mm. 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 Risks and Benefits of physical therapy: Patient informed of risks and benefits of treatment SUBJECTIVE: Patient Subjective: Well this is how Ross and I do it Patient Identified Goal(s): To go home [employer] Status: Ind for functional mobility, ADLs, IADLs without device. (+) drives Falls: 1 in past 6 months that led to this hospitalization Home with first floor setup: 2 steps to enter with rails. 0 steps to bedroom/bathroom Assistance available: Lives alone, has family who can provide 24/7 assistance Equipment available: cane , rolling walker, and bedside commode OBJECTIVE: Appearance: Pt supine in bed, son Alek present, Pulse Oximeter, BP cuff, and hep locked IV Behavior: Awake, pleasant, cooperative Oriented x appropriately Follows 1 step commands consistently Pain: Site/Location: denies pain; Pain Scale: 0/10 Pain Relief Interventions Implemented: None required; No pain at this time Passive ROM: Not formally tested however observed WFL for basic level of mobility Strength/Active ROM: WFL B LE grossly 4+/5 Mobility: Supine to short sit: MinAx1 at trunk to elevate Sitting balance: Good Sit to stand: From elevated cart, CGA without device Transfers: Stand pivot, with B BUS AND RAIL OPERATOR, CGA, pt demos mild trunk flexion and short shuffling steps Ambulation/Gait: 10'x1, RW, CGA progressing to CS. Pt demos improved fluidity of movement and improved posture. Step through pattern with slow aristides, no LOB Endurance: Fair, pt denies dizziness, SOB, and fatigue with activity Patient/Family Education: Instructed Patient in roles of therapy. Sitting up in chair at least 1 hr and for all meals Not getting up without assistance from nursing Patient up in chair with call light in reach. Son Alek present, RN notified of pt position. DME: With Patients permission ordered no equipment via ActionFlow Order. If any questions contact [facility] DME Provider at [phone]. 6 Clicks Basic Mobility PT 09/04/2022 Difficulty turning over in bed 3 Difficulty sitting down and standing up from a chair with arms 3 Difficulty moving from lying on back to sitting on the side of the bed 3 Help from another person moving to and from bed to a chair 3 Help from another person to walk in hospital room 3 Help from another person climbing 3-5 steps with a railing 3 PT 6 Clicks Score 18 6 Click Score Guidelines: 1 - Total = Requires total assistance, or cannot do at all. 2 - A lot = Requires a lot of help (maximun to moderate assistance) Can use assistive devices. 3 - A little = Requires a little help (supervision, minimal assistance) Can use assistive devices. 4 - None = Does not require any help and does the activity independently. Can use assistive devices. ASSESSMENT: Michael Hewitt is a 86 year old yo female with diagnosis as stated above. Pt is functioning near herbaseline level of mobility but has mild impairment in endurance and balance. Patient is functionally appropriate for discharge home with 24/7 supervision once medically cleared. Will continue to follow patient while in hospital as appropriate. Recommend Home Physical Therapy. Recommend use of RW at discharge for all functional mobility. Problems: Decreased functional mobility Decreased endurance Decreased balance Rehabilitation Potential: Good Goals (to be achieved by discharge from acute care): Patient will achieve acceptable level of pain control to allow participation in therapy. Patient will increase bed mobility to independent Patient will perform sit to/from stand with rolling walker with modified independent Patient will ambulate 150 feet with rolling walker with modified independent Patient will ascend/descend 2 stairs with 1 rail(s) and no device with distant supervision Patient will increase ROM/Strength/Endurance/Balance to allow for above goals. Patient/Family independent with exercise program/precautions. PLAN OF CARE: Frequency: Patient to be seen 3-5 times a week Interventions: Functional mobility ROM/Strengthening Home exercise program Discharge planning and equipment ordering as needed Patient /Family education The evaluation findings and treatment plan were discussed with the patient. The patient indicated understanding and agreement with the plan. Varsha Marroquin PT, DPT NA = Not Assessed, I = Independent, ME = Modified Independent, Sup = Supervised, Set up = Physical Assistance for Set-up Only, Min = Minimal Assistance, Mod = Moderate Assistance, Max = Max assistance; Dep = Dependent; AROM = Active Range of Motion; PROM = Passive Range of Motion; MMT = Manual Muscle Test; LE = Lower Extremity [id number] History and physical note* Norm Olea MD - 09/04/2022 2:58 AM EST Images from the original note were not included. 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 Patient reports getting out of grocery store while it was raining to get into car of son, next thing she remembers is waking up on the ground, Patient denies any prodromal symptoms such as chest pain, weakness, lightheadedness or sensation ofpre-syncope. Denies urinary or stool incontinence. Came back to baseline immediately. Son was in the car but did not witness fall, however says came back to baseline immediately and no shaking was observed. Patient currently reports pain to right mandible where there is bruise, otherwise denies chest pain, abdominal pain, nausea or vomiting. Denies cough or sputum production. Usually has baseline SOB onexertion, did not notice a recent worsening. No other complaints reported. IN THE ED: - VS: Vital Signs 09/04/2022 BP-Systolic 149 BP-Diastolic 52 Pulse 64 Resp 18 Oxygen Level 98 - Labs: CBC wbc 12.0, anemia 10.4, platelets 245 BMP Cr 1.24, glucose 145, otherwise wnl PT/PTT wnl LA wnl 1.2 HS trop 79 --> 68 BNP 894 Ethanol <10 HIV negative COVID positive, influenza negative - Imaging: XR RT FEMUR MIN 2 VIEWSPRO/RT 09/03/2022 No acute right femur fracture XR LT FEMUR MIN 2 VIEWSPRO/LT 09/03/2022 No acute left femur fracture. CT L-SPINE W/O CONTRAST 09/03/2022 No fracture or malalignment of the lower thoracic or lumbar spine. CT T-SPINE W/O CONTRAST 09/03/2022 No acute fracture or malalignment of the thoracic spine CT ABD/PELVIS ED I/V COLLIN W/ CONTRAST 09/03/2022 1. No traumatic injury identified. 2. Extensive atherosclerosis with mild stenosis of the distal superior mesenteric artery. 3. Mild cardiomegaly with mild interlobular septal thickening suggestive of pulmonary edema. 4. Diverticulosis without evidence of diverticulitis. 5. Severe mitral annular calcifications. CTA CHEST PULMONARY EMBOLISM W/ CTA 09/03/2022 1. Negative for acute pulmonary embolus. 2. Mild interlobular septal thickening suggestive of early pulmonary edema. 3. Enlarged main pulmonary artery measuring up to 3.5 cm suggestive of pulmonary hypertension. 4. A 8 mm right upper lobe pleural-based linear nodule likely present focal atelectasis or scarring. 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 Current Outpatient Medications on File Prior to Encounter Medication Sig Dispense Refill losartan (COZAAR) 25 MG tablet Take 0.5 Tablets by mouth daily. metoprolol (TOPROL-XL) 25 mg XL tablet Take 25 mg by mouth daily. Potassium Chloride ER 20 MEQ TBCR sodium bicarbonate 650 MG tablet Take 1,300 mg by mouth 2 times daily. aspirin EC 81 MG tablet Take 81 mg by mouth. furosemide (LASIX) 20 MG tablet OneTouch Ultra strip USE 1 STRIP TO TEST 3 TIMES A DAY Levemir 100 UNIT/ML injection INJECT 35 UNITS SUBCUTANEOUSLY EVERY DAY OBJECTIVE: BP 149/52 Pulse 64 Temp 97.6 F (36.4 C) (Oral) Resp 18 SpO2 98% No intake or output data in the 24 hours ending 09/04/22 0741 PHYSICAL EXAM: General: AAOx3 Skin: Bruise over right mandible Heart: Regular rate and rhythm Lungs: Clear bilateral air entry Abdomen: Soft, non tender Extremities: No edema LAB DATA: Basic Metabolic Panel Na K Cl CO2 Gap Glu BUN Cr Ca Mg PO4 09/03/222040 139 4.0 102 27 14 145 38 1.24 9.0 CBC/PT/INR WBC RBC Hgb Hct MCV RDW Plt PT aPTT INR 09/03/222040 12.0 3.48 10.4 30.7 88 15.4 245 09/03/222040 30 09/03/222040 1.06 WBC/Diff Neutro% Lymph% Eos% Seg% Bands% 09/03/222040 81.7 9.1 1.5 Unable to use Cockroft-Gault (no weight) Estimated GFR: 43 on 09/03/2022 PT/INR PT aPTT INR 09/03/222040 30 09/03/222040 1.06 Cardiac Troponin I CK total CK-MB BNP 09/03/22 2329 894.0 Fingerstick Glucose (last 72 hours) Glucose 09/04/22 0049 236 Comment: Follow Protocol Notified ETELVINA MCMANUS MD IMAGING/OTHER: Echocardiogram 02/17/2022: LVEF is 55 to 60%, concentric LVH, normal RV systolic function, severely elevated right-sided pressures, severe mitral valve stenosis. Mean valve gradient 15 mmHg. TAVR valve with abnormally high Doppler flows, mean valve gradient 19 mmHg, DVI 0.31. RVSP 84 mmHg. Mildly increased gradients across TAVR valve with a mean gradient of 19 and a DVI of 0.31, mitral stenosis remains severe with similar gradients to previous echo. Peak E wave is 3.06 m/s and pressure half-time of 179 ms. Big part of this gradient is due to volume overload. ECG 01/13/2022: Sinus bradycardia, moderate criteria for LVH. TRISH 11/11/2021: Global left ventricular systolic function is normal. No regional wall motion abnormality. The right ventricle appears normal in size. Right ventricular systolic function appears normal. Spontaneous contrast noted in LA and GURDEEP. The left atrium is severely enlarged. Normal left atrial appendage, no thrombus seen. The right atrium is moderately enlarged. The mitral valve is heavily calcified with restricted mobility. Moderate mitral regurgitation. Severe mitral valve stenosis. There is marked mitral valve calcification with marked chordal involvement. There is marked mitral annular calcification. Bioprosthetic aortic valve appears well seated in aortic position with increased Doppler flows. Severe aortic valve stenosis. Aortic Valve Measurements AV PGmean: 31.00 mmHg. SIMONE D (continuity eq. Vmax): 0.7 cm . AV Vmax, Caliper: 3.67 m/s. DVI 0.25. Mild-moderate tricuspid regurgitation. Moderate atherosclerotic plaque is seen in the aorta. Cardiac catheterization 11/11/2021: 1. Mild three-vessel coronary disease. 2. Moderate pulmonary hypertension. 3. Moderately elevated left filling pressures. 4. Low right filling pressures. 5. Preserved cardiac index. 6. Patent iliac arteries bilaterally with a minimum diameter of 7 mm. ASSESSMENT AND PLAN: SUMMARY: 86 year old female with a history of severe AR s/p AVR complicated by stenosis s/p TAVR, severe mitral stenosis, moderate PHTN, HFpEF, DM and HTN presenting post fall most likely mechanical in nature. Found incidentally to have COVID. PROBLEM LIST: #Trauma - Secondary to fall - Minimally displaced alveolar fracture, calvert-imaging otherwise negative for fracture Plan: - Inpatient dental consult for splinting of teeth for displaced teeth/malocclusion as per plastic surgery recommendation - Pain control with tylenol PRN #Fall - Mechanical most likely VS arrhythmia/valve obstruction (severe TR s/p AVR s/p TAVR, severe MR, severe PHTN) - Seizure less likely considering immediate return to baseline, no witnessed seizure like activity. Plan: - Repeat TTE - PT/OT consult - Hydration + hold lasix (lasix 20 at home) for volume expansion to cover for orthostatic fall - Hold metoprolol for sinus bradycardia and fall - Telemetry plus consider event monitor on discharge #COVID - Incidental finding, no symptoms - No increased oxygen requirements - WBC of 12, reactive VS infectious - CTA chest negative for infectious process Plan: - Contact isolation - Not candidate for treatment #CKD vs JULIO - Cr 1.24 unclear if JULIO VS baseline Plan: - Trend Cr after 500 ml hydration Code Status: Patient has living will and HCPOA (her son) already established. Code status reexplained at length. Patient indicates she does not want resuscitated and understands risks and benefits. Therefore, patient is DNRCCADNI at this time. DVT Prophylaxis: SCDs given fall Analgesia: Tylenol prn Diet: NPO IVF: None Code: DNR Comfort Care Arrest- Do Not Intubate Dispo: Pending PT/OT recs Outpatient followup: PCP Plan is preliminary until finalized by the attending physician. Norm Olea MD Internal Medicine - PGY-1 Pager: [phone] Associated attestation - Juan Starkey MD - 09/04/2022 2:36 PM EST Teaching Physician Note: I saw and evaluated the patient. I personally obtained the haskins and critical portions of the historyand physical exam. I reviewed the resident's documentation and discussed the patient with the resident. I agree with the resident's medical decision making as documented in the resident's note. Juan Starkey MD [id number] History and physical note* Norm Olea MD - 09/04/2022 2:58 AM EST Images from the original note were not included. 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 Patient reports getting out of grocery store while it was raining to get into car of son, next thing she remembers is waking up on the ground, Patient denies any prodromal symptoms such as chest pain, weakness, lightheadedness or sensation ofpre-syncope. Denies urinary or stool incontinence. Came back to baseline immediately. Son was in the car but did not witness fall, however says came back to baseline immediately and no shaking was observed. Patient currently reports pain to right mandible where there is bruise, otherwise denies chest pain, abdominal pain, nausea or vomiting. Denies cough or sputum production. Usually has baseline SOB onexertion, did not notice a recent worsening. No other complaints reported. IN THE ED: - VS: Vital Signs 09/04/2022 BP-Systolic 149 BP-Diastolic 52 Pulse 64 Resp 18 Oxygen Level 98 - Labs: CBC wbc 12.0, anemia 10.4, platelets 245 BMP Cr 1.24, glucose 145, otherwise wnl PT/PTT wnl LA wnl 1.2 HS trop 79 --> 68 BNP 894 Ethanol <10 HIV negative COVID positive, influenza negative - Imaging: XR RT FEMUR MIN 2 VIEWSPRO/RT 09/03/2022 No acute right femur fracture XR LT FEMUR MIN 2 VIEWSPRO/LT 09/03/2022 No acute left femur fracture. CT L-SPINE W/O CONTRAST 09/03/2022 No fracture or malalignment of the lower thoracic or lumbar spine. CT T-SPINE W/O CONTRAST 09/03/2022 No acute fracture or malalignment of the thoracic spine CT ABD/PELVIS ED I/V COLLIN W/ CONTRAST 09/03/2022 1. No traumatic injury identified. 2. Extensive atherosclerosis with mild stenosis of the distal superior mesenteric artery. 3. Mild cardiomegaly with mild interlobular septal thickening suggestive of pulmonary edema. 4. Diverticulosis without evidence of diverticulitis. 5. Severe mitral annular calcifications. CTA CHEST PULMONARY EMBOLISM W/ CTA 09/03/2022 1. Negative for acute pulmonary embolus. 2. Mild interlobular septal thickening suggestive of early pulmonary edema. 3. Enlarged main pulmonary artery measuring up to 3.5 cm suggestive of pulmonary hypertension. 4. A 8 mm right upper lobe pleural-based linear nodule likely present focal atelectasis or scarring. 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 Current Outpatient Medications on File Prior to Encounter Medication Sig Dispense Refill losartan (COZAAR) 25 MG tablet Take 0.5 Tablets by mouth daily. metoprolol (TOPROL-XL) 25 mg XL tablet Take 25 mg by mouth daily. Potassium Chloride ER 20 MEQ TBCR sodium bicarbonate 650 MG tablet Take 1,300 mg by mouth 2 times daily. aspirin EC 81 MG tablet Take 81 mg by mouth. furosemide (LASIX) 20 MG tablet OneTouch Ultra strip USE 1 STRIP TO TEST 3 TIMES A DAY Levemir 100 UNIT/ML injection INJECT 35 UNITS SUBCUTANEOUSLY EVERY DAY OBJECTIVE: BP 149/52 Pulse 64 Temp 97.6 F (36.4 C) (Oral) Resp 18 SpO2 98% No intake or output data in the 24 hours ending 09/04/22 0741 PHYSICAL EXAM: General: AAOx3 Skin: Bruise over right mandible Heart: Regular rate and rhythm Lungs: Clear bilateral air entry Abdomen: Soft, non tender Extremities: No edema LAB DATA: Basic Metabolic Panel Na K Cl CO2 Gap Glu BUN Cr Ca Mg PO4 09/03/222040 139 4.0 102 27 14 145 38 1.24 9.0 CBC/PT/INR WBC RBC Hgb Hct MCV RDW Plt PT aPTT INR 09/03/222040 12.0 3.48 10.4 30.7 88 15.4 245 09/03/222040 30 09/03/222040 1.06 WBC/Diff Neutro% Lymph% Eos% Seg% Bands% 09/03/222040 81.7 9.1 1.5 Unable to use Cockroft-Gault (no weight) Estimated GFR: 43 on 09/03/2022 PT/INR PT aPTT INR 09/03/222040 30 09/03/222040 1.06 Cardiac Troponin I CK total CK-MB BNP 09/03/22 2329 894.0 Fingerstick Glucose (last 72 hours) Glucose 09/04/22 0049 236 Comment: Follow Protocol
Notified ETELVINA MCMANUS MD
IMAGING/OTHER: Echocardiogram 02/17/2022: LVEF is 55 to 60%, concentric LVH, normal RV systolic function, severely elevated right-sided pressures, severe mitral valve stenosis. Mean valve gradient 15 mmHg. TAVR valve with abnormally high Doppler flows, mean valve gradient 19 mmHg, DVI 0.31. RVSP 84 mmHg. Mildly increased gradients across TAVR valve with a mean gradient of 19 and a DVI of 0.31, mitral stenosis remains severe with similar gradients to previous echo. Peak E wave is 3.06 m/s and pressure half-time of 179 ms. Big part of this gradient is due to volume overload. ECG 01/13/2022: Sinus bradycardia, moderate criteria for LVH. TRISH 11/11/2021: Global left ventricular systolic function is normal. No regional wall motion abnormality. The right ventricle appears normal in size. Right ventricular systolic function appears normal. Spontaneous contrast noted in LA and GURDEEP. The left atrium is severely enlarged. Normal left atrial appendage, no thrombus seen. The right atrium is moderately enlarged. The mitral valve is heavily calcified with restricted mobility. Moderate mitral regurgitation. Severe mitral valve stenosis. There is marked mitral valve calcification with marked chordal involvement. There is marked mitral annular calcification. Bioprosthetic aortic valve appears well seated in aortic position with increased Doppler flows. Severe aortic valve stenosis. Aortic Valve Measurements AV PGmean: 31.00 mmHg. SIMONE D (continuity eq. Vmax): 0.7 cm . AV Vmax, Caliper: 3.67 m/s. DVI 0.25. Mild-moderate tricuspid regurgitation. Moderate atherosclerotic plaque is seen in the aorta. Cardiac catheterization 11/11/2021: 1. Mild three-vessel coronary disease. 2. Moderate pulmonary hypertension. 3. Moderately elevated left filling pressures. 4. Low right filling pressures. 5. Preserved cardiac index. 6. Patent iliac arteries bilaterally with a minimum diameter of 7 mm. ASSESSMENT AND PLAN: SUMMARY: 86 year old female with a history of severe AR s/p AVR complicated by stenosis s/p TAVR, severe mitral stenosis, moderate PHTN, HFpEF, DM and HTN presenting post fall most likely mechanical in nature. Found incidentally to have COVID. PROBLEM LIST: #Trauma - Secondary to fall - Minimally displaced alveolar fracture, calvert-imaging otherwise negative for fracture Plan: - Inpatient dental consult for splinting of teeth for displaced teeth/malocclusion as per plastic surgery recommendation - Pain control with tylenol PRN #Fall - Mechanical most likely VS arrhythmia/valve obstruction (severe TR s/p AVR s/p TAVR, severe MR, severe PHTN) - Seizure less likely considering immediate return to baseline, no witnessed seizure like activity. Plan: - Repeat TTE - PT/OT consult - Hydration + hold lasix (lasix 20 at home) for volume expansion to cover for orthostatic fall - Hold metoprolol for sinus bradycardia and fall - Telemetry plus consider event monitor on discharge #COVID - Incidental finding, no symptoms - No increased oxygen requirements - WBC of 12, reactive VS infectious - CTA chest negative for infectious process Plan: - Contact isolation - Not candidate for treatment #CKD vs JULIO - Cr 1.24 unclear if JULIO VS baseline Plan: - Trend Cr after 500 ml hydration Code Status: Patient has living will and HCPOA (her son) already established. Code status reexplained at length. Patient indicates she does not want resuscitated and understands risks and benefits. Therefore, patient is DNRCCADNI at this time. DVT Prophylaxis: SCDs given fall Analgesia: Tylenol prn Diet: NPO IVF: None Code: DNR Comfort Care Arrest- Do Not Intubate Dispo: Pending PT/OT recs Outpatient followup: PCP Plan is preliminary until finalized by the attending physician. Norm Olea MD Internal Medicine - PGY-1 Pager: [phone] Associated attestation - Juan Starkey MD - 09/04/2022 2:36 PM EST Teaching Physician Note: I saw and evaluated the patient. I personally obtained the haskins and critical portions of the historyand physical exam. I reviewed the resident's documentation and discussed the patient with the resident. I agree with the resident's medical decision making as documented in the resident's note. Juan Starkey MD * Betina Wilkins., DO - 09/03/2022 8:53 PM EST [facility] OF [facility] SURGERY TRAUMA SURGERY HISTORY AND PHYSICAL Michael Hewitt [id number] 09/03/22 BASIC INJURY INFORMATION: Level of activation: Category 2 Trauma Mode of transport: Ambulance: EMS Mechanism of injury: Fall from ground level Complicating features: Not applicable Protective measures: Not applicable Date of Injury: 09/03/2022 Time of Injury: Today Patient origin: Transfer from outside facility HISTORY OF PRESENT INJURY: Michael Hewitt is a 86 year old female brought in by EMS from [facility] following a fall with traumatic injuries. Patient was at the grocery store today and became dizzy and subsequently fell onto the ground from a standing position. She hit the right side of her face but denies loss of consciousness. No blood thinners. She had imaging that showed incomplete dental extraction of multiple teeth and partial alveolar ridge fracture. Tetanus updated prior to arrival. She was treated with 0.5mg IV Dilaudid and 4mg IV Zofran by the previous team prior to transfer and had a desaturation eventen route to about 86% but improved with 1L NC. Of note patient had a recent procedure on her left upper extremity and has limited range of motion and numbness of the arm that has been present since her surgery 1 week ago. Loss of consciousness: No Initial interventions (prior to ED disposition): None (Select all that apply.) Hemodynamic status witnessed in ED: New O2 requirements or new onset hypoxia and None applicable (Select all that apply.) PRIMARY SURVEY: Airway: Intact Breathing: Normal Breath Sounds: Breath sounds equal bilaterally. Circulation: Pulses: Normal Skin: Normal skin color, texture, and turgor. No rashes or lesions., Warm, and Dry Disability: Pupils: PERRL GCS: Best Eyes: 4 Best Verbal: 5 Best Motor: 6 Total: 15 SECONDARY SURVEY: Neurologic: Alert and oriented, appropriate, moves all extremities. HEENT: Head: Superficial injury, described as: abrasion to the right forehead superior to the eyebrow withtenderness to palpation. and Tender to palpation of the upper dental ridge and right maxilla. Ecchymosis to the chin. Dried blood and fresh blood in the mouth with several old missing teeth. No obvious dental socket swelling. Eyes: PERRLA, conjunctiva/corneas without lesions. and EOM intact, corrective lenses removed. Ears: No hemotympanum Nose: No bloody drainage. Throat: Additional findings: as above Neck: No midline tenderness, lacerations, or wounds Chest: Tender when palpating bilateral anterior and lateral chest wall without crepitus or ecchymosis. Pulmonary: Breath sounds clear, symmetrical; no wheezes, rales, or consolidation Cardiovascular: Pulses: Radial: R: normal/ L: normal and DP/PT: R: normal/ L: normal Abdomen: Non-distended; non-tender to palpation; no scars, lacerations, or contusions Rectal: Not performed. Pelvis/Perineum: Normal appearing genitalia, Pelvis is stable to palpation, and Additional findings: stage 1 sacral decubitus ulcer Musculoskeletal: Back/Spine: Thoracolumbar spinal column non-tender and No step-off or deformity noted Extremities: Additional findings: ROM normal. Tender to palpation of the bilateral thighs. Abrasionto the left knee. Adjunct Studies: CXR performed [place] Check all that apply: None PAST MEDICAL HISTORY: Hypertension (HTN) and Diabetes mellitus (DM) PAST SURGICAL HISTORY: Left humerus fracture repair PRE-ADMISSION MEDICATIONS: Amlodipine Doxycycline Furosemide Levemir Losartan Metoprolol succinate Potassium Chloride Sodium Bicarbonate tablets Anti-platelet use: No Anti-coagulant use: No ALLERGIES: Not on File SOCIAL HISTORY: Social History Socioeconomic History Marital status: Single Living status: Home Primary language: Angolan Functional status: Independent Impairments: None Assistive Devices Used: None FAMILY HISTORY: No family history on file. REVIEW OF SYSTEMS: Skin: negative and bruising Eyes: negative review of symptoms Ears/Nose/Throat: negative and dental problem Respiratory: negative symptoms (no cough, hemoptysis, SOB, WILKES, PND, wheezing) Cardiovascular: negative symptoms (No CP/Pressure/Tightness, palpitations, orthopnea, PND, SOB, WILKES, edema, TEMPLE or vision change) Gastrointestinal: negative symptoms (no abdominal pain, anorexia, n/v, indigestion, constipation, or diarrhea) Genitourinary: no urinary symptoms Neurologic: negative symptoms (no syncope, seizures, weakness, gait problems, numbness, burning pain, tremors, or memory loss), numbness or tingling in hands or fingers, and dizziness negative (no arthritic pain, no joint swelling, no muscle weakness) Psychiatric: negative (no sleep disturbance, anxiety, memory loss, disorientation, inattention, feelings of depression) Hematologic/Lymphatic/Immunologic: negative (no anemia, bleeding, bruising) Endocrine: negative review of symptoms BASIC LABS Results for orders placed or performed during the hospital encounter of 09/03/22 CTA CHEST PULMONARY EMBOLISM W/ CTA Result Value Ref Range CTDI VOL 5.3 (mGy),6.0 (mGy),11.1 (mGy),10.3 (mGy),10.0 (mGy),8.6 (mGy) PHANTOM TYPE IEC Body Dosimetry Phantom,IEC Body Dosimetry Phantom,IEC Body Dosimetry Phantom,IEC Body DosimetryPhantom,IEC Body Dosimetry Phantom,IEC Body Dosimetry Phantom CT DLP 1204.7 (mGy.cm) CT Series Entire body,Entire body,Entire body,Entire body,Entire body,Entire body NEGATIVE P/E Negative for acute pulmonary embolus. ETHANOL, SERUM Result Value Ref Range Ethanol <10 None Detected mg/dL PARTIAL THROMBOPLASTIN TIME Result Value Ref Range aPTT 30 25 - 37 sec BASIC METABOLIC PANEL Result Value Ref Range Glucose 145 (H) 80 - 116 mg/dL Sodium 139 135 - 148 mmol/L Potassium 4.0 3.3 - 5.3 mmol/L Carbon Dioxide 27 21 - 30 mmol/L Chloride 102 97 - 111 mmol/L Blood Urea Nitrogen 38 (H) 8 - 22 mg/dL Creatinine 1.24 (H) 0.50 - 1.10 mg/dL Calcium 9.0 8.4 - 10.4 mg/dL Anion Gap 14 10 - 20 Estimated GFR (CKD-EPI) 43 (L) >=60 mL/min/1.73sqm PROTHROMBIN TIME AND INR Result Value Ref Range Protime 12.0 9.7 - 12.9 sec INR 1.06 0.90 - 1.10 LACTIC ACID Result Value Ref Range Lactate 1.2 0.5 - 2.0 mmol/L HIV1 HIV2 AGAB SCRN Result Value Ref Range HIV 1/2 Ag/Ab Nonreactive Nonreactive TYPE AND SCREEN Result Value Ref Range ABO Rh Type A Positive Ab Screen Interp Negative ABO Rh/Erlinda/TXRX History No Previous Results HIGH SENSITIVITY TROPONIN I Result Value Ref Range HS Troponin I 79 (HH) <=15 ng/L ABO RH TYPE Result Value Ref Range ABO Rh Type A Positive ABO Rh/Erlinda/TXRX History A Positive CBC WITH DIFFERENTIAL Result Value Ref Range WBC 12.0 (H) 4.5 - 11.5 K/uL RBC 3.48 (L) 4.00 - 5.20 M/uL Hemoglobin 10.4 (L) 12.0 - 15.0 g/dL Hematocrit 30.7 (L) 36.0 - 46.0 % MCV 88 80 - 100 fL MCH 29.9 26.0 - 34.0 pg MCHC 33.9 32.0 - 35.9 g/dL Platelet 245 150 - 400 K/uL RDW-CV 15.4 (H) 11.5 - 14.5 % MPV 7.7 7.5 - 11.2 fL Neutrophils 81.7 (H) 31.0 - 76.0 % Neutrophil # 9.82 (H) 1.50 - 8.00 K/uL Lymphocytes 9.1 (L) 24.0 - 44.0 % Lymphocytes # 1.10 1.00 - 4.80 K/uL Monocytes 6.9 2.0 - 11.0 % Monocyte # 0.83 0.20 - 1.00 K/uL Eosinophil 1.5 0.1 - 4.0 % Eosinophil # 0.18 0.00 - 0.70 K/uL Basophils 0.7 <=1.9 % Basophil # 0.09 0.00 - 0.20 K/uL MDW 18 <=20 RADIOLOGY: CXR: No acute cardiopulmonary abnormalities identified. XR PELVIS: Performed by outside hospital. No displaced fractures seen. Incidentally noted is a heavy mural calcification of the femoral arteries bilaterally. CT HEAD: Injury found: No Findings: There is no evidence of an intracranial hemorrhage, mass lesion or apparent acute infarct. Diffuse atrophy is present. Patchy diminished attenuation is seen in the deep white matter, most likely due to early small vessel ischemic change in a patient of this age. There is no apparent acute skull fracture. Similar findings were noted in the prior study. A mucocele or cyst is partially visualized inthe right maxillary sinus and the visualized paranasal sinuses are relatively clear. Ordered by: Outside hospital CT FACE: Injury found: Yes Findings: Incomplete traumatic dental extraction involving tooth numbers 5, 6, 7, 8 and 9 associated with a nondisplaced fracture of the adjacent alveolar ridge. Soft tissue swelling superficial to the right maxilla and right mandibular body, without underlying fracture. Ordered by: Outside hospital CT C-SPINE: Injury found: No Findings: No acute fracture or subluxation. Degenerative changes as described in the body of the report. Osteopenia. Possible multinodular thyroid goiter with possible small nodules measuring up to approximately 5mm. No follow up is required per ACR guidelines. Atherosclerotic coronary artery calcification. Ordered by: Outside hospital CTA Chest: Injury found: No Findings: Negative for acute pulmonary embolus. Mild interlobular septal thickening suggestive of early pulmonary edema. Enlarged main pulmonary artery measuring up to 3.5cm suggestive of pulmonary hypertension. A 8mm right upper lobe pleural based linear nodule likely present focal atelectasis or scarring. Ordered by: Trauma Surgery team CT A/P: Injury found: No Findings: No traumatic injury identified. Extensive atherosclerosis with mild stenosis of the distal superiormesenteric artery. Mild cardiomegaly with mild interlobular septal thickening suggestive of pulmonary edema. Diverticulosis without evidence of diverticulitis. Severe mitral annular calcifications. Ordered by: Trauma Surgery team CT T/L-SPINE RECONS: Injury found: No Findings: No acute fracture or malalignment of the thoracic or lumbar spine. Ordered by: Trauma Surgery team Additional plain films: Bilateral femur xrays No acute bilateral femur fractures. ASSESSMENT: Michael Hewitt is a 86 year old female who presented to the ED from [facility] for trauma evaluation after she was found to have dental injuries and alveolar ridge nondisplaced fracture. INJURIES: ncomplete traumatic dental extraction involving tooth numbers 5, 6, 7, 8 and 9 associated with a nondisplaced fracture of the adjacent alveolar ridge. Soft tissue swelling superficial to the right maxilla and right mandibular body, without underlying fracture. INCIDENTALS: Possible multinodular thyroid goiter with possible small nodules measuring up to approximately 5mm. Enlarged main pulmonary artery measuring up to 3.5cm suggestive of pulmonary hypertension. PLAN: Plastics and Dentistry consulted for recommendations based on injuries. Patient evaluated by Plastics in the ED. Soft diet, oral hygiene, and outpatient follow up for further evaluation. Dentistry also recommends outpatient exam at [facility] office. CTA chest without PE or traumatic injuries. CT A/P without traumatic injuries. Xrays negative. No further recommendations from a trauma standpoint. Trauma will sign off. Patient likely to be admittedto medicine for dizziness and elevated troponins. Final disposition per ED. Final ED disposition: Regular nursing floor Patient discussed with Attending Trauma Surgeon, Dr. Torres. Franky Moffett DO Associated attestation - Nathan Gonzalez MD - 09/04/2022 4:35 AM EST Images from the original note were not included. Teaching Physician Note: I saw and evaluated the patient. I personally obtained the haskins and critical portions of the historyand physical exam. I reviewed the resident's documentation and discussed the patient with the resident. I agree with the resident's medical decision making as documented in the resident's note. Nathan Gonzalez MD Division of Trauma, Critical Care, [place], and Emergency General Surgery Department of Surgery [facility] documented in this [id number] Hospital Discharge instructions* Discharge Instructions* Onelia Anthony MD - 09/04/2022 1:53 AM EST Please make sure to follow up with the therapy services that we are ordering for you. You will needHome PT/OT. Per the [facility] PT/OT you will need 24/ family supervision for safe completion of ADLs/functional mobility. Recommend use of RW when mobilizing for improved balance. Please follow up with your PCP within the next 1-2 weeks. You are incidentally COVID + on 09/04/22 and per CDC guidelines, you do not need to isolate/quarantine on 09/08/22 as long as you remain without respiratory symptoms. Please utilize CDC guidance if you start having symptoms about duration ofquarantine or call your PCP. Otherwise just wear mask at home when other people are close by until 09/08/22 per CDC guidelines. Per Dental Team: Patient should avoid eating anything hard with the teeth on the right side. Warm soft diet is recommended. Please make sure to go to [facility] for comprehensive evaluation and treatment of teeth #5-#8. [phone]. [address] [place] [address]. We will discontinue your Lasix and Potassium supplementation as your kidney function is not improved. We have ordered a BMP for you to go have drawn at any [facility] facility within the next week. If you feel like your breathing is worse or legs are more swollen, please call your primary care provider in regards to Lasix. documented in this [id number] Physician Emergency department Note* Tucker Bucio MD - 09/03/2022 10:37 PM EST MS MM 86 female cat 2 transfer form osh. Fell at grocery store around noon, unknown reason for fall. Alveolar ridge fracture, multiple avulsed teeth. Was hypoxic on arrival to 83%, improved on 2L. CT's pending including CTPE Trops up but stable Plastics and dental recs Admit somewhere for O2 and trop bump Under my care: Patient's repeat troponin was stable. BNP mildly elevated inpatient on oxygen 2 L. Was given 20 of IV Lasix for concern for pulmonary edema on CT PE. Admitted to medicine report called to the medicine senior accepted the patient to the floor. Tucker Bucio MD [employer] Work Phone: [phone] Emergency department Note* Tucker Bucio MD - 09/03/2022 10:37 PM EST MS MM 86 female cat 2 transfer form osh. Fell at grocery store around noon, unknown reason for fall. Alveolar ridge fracture, multiple avulsed teeth. Was hypoxic on arrival to 83%, improved on 2L. CT's pending including CTPE Trops up but stable Plastics and dental recs Admit somewhere for O2 and trop bump Under my care: Patient's repeat troponin was stable. BNP mildly elevated inpatient on oxygen 2 L. Was given 20 of IV Lasix for concern for pulmonary edema on CT PE. Admitted to medicine report called to the medicine senior accepted the patient to the floor. Tucker Bucio MD * Joby Whitehead - 09/03/2022 9:[address]LIP READ notified of critical Troponin value of 79. Hard copy of results given to . * Delores Gaines RN - 09/03/2022 8:54 PM EST Prehospital Medications: 0.5mg dilaudid 4mg zofran * Delores Gaines RN - 09/03/2022 8:52 PM EST 86F, felt dizzy while at grocery store, fell from standing onto face * Nurys Read MD - 09/03/2022 8:33 PM EST HISTORY OF PRESENT ILLNESS 09/03/2022, 8:33 PM. Category: 2 The patient was brought to the ED by [facility]. The history is provided by EMS. Michael Hewitt ruel 86 year old female brought to the ED s/p fall from standing earlier today. Per EMS, patient was at the grocery store when she felt dizzy and fell. Patient was transferred here. The patient currently complains of facial pain. Pain has been constant and mild in severity. The patient denies neck pain or injury, back pain or injury, chest pain or injury, abdominal pain, pelvic pain, and any extremity pain or injury. Pre hospital information: patient received 0.5 mg of dilaudid and 4 mg of Zofran prior to transfer.Patient has fractured upper teeth. Patient was on 1 L O2 during transfer. REVIEW OF SYSTEMS Review of Systems Constitutional: Negative for activity change and fever. HENT: Negative for dental problem and nosebleeds. +facial pain Eyes: Negative for pain and visual disturbance. Respiratory: Negative for shortness of breath. Cardiovascular: Negative for chest pain. Gastrointestinal: Negative for abdominal pain. Genitourinary: Negative for flank pain. Musculoskeletal: Negative for back pain and neck pain. Skin: Negative for wound. Neurological: Negative for weakness and headaches. Psychiatric/Behavioral: Negative for confusion. PAST HISTORY Past Medical History: No known past medical history. Past Surgical History: Recent L arm surgery. Social History: Tobacco Use: denies Alcohol Use: denies Drug use: denies Family History: No known past family history. The patient's home medications have been reviewed. Allergies: No known allergies. PHYSICAL EXAM Primary Survey Airway: Intact Breathing: Bilateral breath sounds Circulation: Palpable bilateral radial, Palpable bilateral DP, and Palpable bilateral PT Spine precautions: WNL Total Glascow Coma Scale: 15 Eyes: eyes open = 4 Verbal: alert and oriented = 5 Motor: obeys commands = 6 Secondary Survey Constitutional: Alert Head: Atraumatic. No cephalohematoma. Midface is stable. Chronic skin changes over the face. Eyes: PERRL. Pupils are 3 mm to 2 mm bilaterally. EOMI. No conjunctival injection. Superficial abrasion over the R eyebrow. Ears: No hemotympanum. Nose: No nasal deformity. No septal hematoma. Mouth/Throat: Airway intact. No malocclusion. Tenderness to palpation over the R maxilla with ecchymosis. Upper teeth missing. Bleeding controlled. Significant ecchymosis over the entire R chin. Neck: Trachea midline. No cervical midline bony tenderness. No deformities or step-offs of the cervical spine . Cardiovascular: Normal rate. Regular rhythm. Heart sounds normal. Peripheral pulses are 2+ in all extremities. Pulmonary/Chest: Lungs are clear bilaterally. No decreased breath sounds. No external evidence of trauma to the chest. Chest wall is stable. Anterior chest wall tenderness. Rash under L breast. No crepitus. No flail segment. No asymmetric rise. Abdominal: No distension. Soft. Suprapubic tenderness to palpation. Old bruises periumbilically. Noexternal evidence of abdominal trauma. Genitourinary: No evidence of genital injury. Back: There is no midline bony tenderness to palpation of the thoracic or lumbar spines. No deformities or step-offs of the thoracic or lumbar spine. No abrasions or ecchymosis. Stage 1 pressure ulcer over the sacrum. Rectal: No gross blood. Musculoskeletal: Pelvis stable to compression and non tender. RUE: No deformities. Full passive ROM. There is no bony tenderness. LUE: No deformities. Full passive ROM. There is no bony tenderness. RLE: No deformities. Full passive ROM. Tenderness to palpation over the thigh. Abrasion and ecchymosis over the knee. LLE: No deformities. Full passive ROM. Mild tenderness to palpation to the distal femur. Skin: Normal color. No lacerations. Neurological: GCS score is 15. Strength is 5/5 in upper and lower extremities bilaterally. Distal motor and sensation grossly intact in bilateral extremities. Subjective numbness in LUE for 1 week per patient. Alert normally oriented Psychiatric: Normal affect. ED COURSE IN TRAUMA BAY 8:39 PM: Patient is started on 2 L through a nasal canula 8:40 PM. The initial vital signs are: BP: 144/56. HR: 75. SpO2: 93. RR 12. 8:43 PM. BP: 151/60. HR: 68. SpO2: 98. RR 20. 8:47 PM. BP: 137/78. HR: 75. SpO2: 98. RR 20. Consultations: Trauma is at bedside and assisted with evaluation and formulation of plan. SCRIBE ATTESTATION 09/03/2022, 9:35 PM. This note is prepared by Dee Grossman acting as Scribe for Laurie Nichols. All medical record entries made by the Scribe were at my direction and personally dictated by me. Laura reviewed the record and confirm that the note above accurately reflects all work, treatment, procedures, and medical decision making performed by me. Laurie Nichols. MEDICAL DECISION MAKING and ED COURSE Nursing triage and assessment notes reviewed and incorporated Evaluated by EM attending Nurys Read Course: ED Course as of 09/04/222300 Bhumi Sep 03, 20222112 Vitals reviewed, patient hemodynamically stable, however, hypoxic in the trauma bay with saturations sitting around 83%; placed on 2L NC with immediate improvement in saturations [MM] 2115 CT HEAD: Injury found: No Findings: There is no evidence of an intracranial hemorrhage, mass lesion or apparent acute infarct. Diffuse atrophy is present. Patchy diminished attenuation is seen in the deep white matter, most likely due to early small vessel ischemic change in a patient of this age. There is no apparent acute skull fracture. Similar findings were noted in the prior study. A mucocele or cyst is partially visualized inthe right maxillary sinus and the visualized paranasal sinuses are relatively clear. Ordered by: Outside hospital CT FACE: Injury found: Yes Findings: Incomplete traumatic dental extraction involving tooth numbers 5, 6, 7, 8 and 9 associated with a nondisplaced fracture of the adjacent alveolar ridge. Soft tissue swelling superficial to the right maxilla and right mandibular body, without underlying fracture. Ordered by: Outside hospital CT C-SPINE: Injury found: No Findings: No acute fracture or subluxation. Degenerative changes as described in the body of the report. Osteopenia. Possible multinodular thyroid goiter with possible small nodules measuring up to approximately 5mm. No follow up is required per ACR guidelines. Atherosclerotic coronary artery calcification. Ordered by: Outside hospital [MM] 213 Plastic surgery consulted due to alveolar ridge fracture [MM] 2137 XR CHEST 1 VIEW AP OR PA IMPRESSION: No acute cardiopulmonary abnormality identified. [MM] 213 Dental consulted due to concerns for missing teeth secondary to trauma. [MM] 221 Complete Blood Count W/Diff(!): WBC 12.0(!) RBC 3.48(!) Hemoglobin 10.4(!) Hematocrit 30.7(!) MCV 88 MCH 29.9 MCHC 33.9 Platelet 245 RDW-CV% 15.4(!) MPV 7.7 Neutrophils 81.7(!) Neutrophil # 9.82(!) Lymphocytes 9.1(!) Lymph Absolute 1.10 Monocytes 6.9 Monocyte Absolute 0.83 Eosinophil 1.5 Eosinophil Absolute 0.18 Basophils 0.7 Basophil # 0.09 MDW 18 Mild Leukocytosis with mild anemia. HgB was 9.7 about 1 year prior, so likely a chronic anemia [MM] 221 BASIC METABOLIC PANEL(aka BMP) [CH8](!): Glucose 145(!) Sodium 139 Potassium 4.0 Carbon Dioxide 27 Chloride 102 BUN 38(!) Creatinine 1.24(!) Calcium 9.0 Anion Gap 14 Estimated GFR 43(!) No significant electrolyte abnormalities that would have lead to the fall. The patient has a mildlyelevated creatinine, however this is below previously documented creatine in Sep 2020 [MM] 2215 CT chest/abdomen/pelvis and CT PE protocol performed due to concerns for hypoxia on exam and concerns for fall earlier in the day [MM] 2218 Patient complaining of pain in face, given fentanyl 25 mcg [MM] 2224 Dental recommendations: : It is recommended for patient to get a comprehensive examination done at [facility]. Panoramic and full mouth series of radiographs needed for definitive diagnosis. [MM] 222 XR RT FEMUR MIN 2 VIEWS IMPRESSION: No acute right femur fracture. [MM] 2225 X-ray Left Femur Min 2 Views IMPRESSION: No acute left femur fracture. [MM] 2250 CT Pulm Emb Chest IMPRESSION: 1. Negative for acute pulmonary embolus. 2. Mild interlobular septal thickening suggestive of early pulmonary edema. 3. Enlarged main pulmonary artery measuring up to 3.5 cm suggestive of pulmonary hypertension. 4. A 8 mm right upper lobe pleural-based linear nodule likely present focal atelectasis or scarring. [MS] 2250 CT L-SPINE W/O CONTRAST IMPRESSION: No fracture or malalignment of the lower thoracic or lumbar spine. [MS] 2250 CT T-SPINE W/O CONTRAST IMPRESSION: No acute fracture or malalignment of the thoracic spine. Please see separate report for CTA chest 09/03/2022 [MS] 2301 CT Abd/Pelvis Ed I/V [place] With Contrast IMPRESSION: 1. No traumatic injury identified. 2. Extensive atherosclerosis with mild stenosis of the distal superior mesenteric artery. 3. Mild cardiomegaly with mild interlobular septal thickening suggestive of pulmonary edema. 4. Diverticulosis without evidence of diverticulitis. 5. Severe mitral annular calcifications. [MS] WedSep 04, 2022 0053 BP(!): 131/109 [MS] 0054 Temperature: 97.6 F (36.4 C) [MS] 0054 Heart Rate: 64 [MS] 0054 Respiratory Rate: 16 [MS] 0054 Reportedly 79% on arrival,now 95% on 2L [MS] 0054 EKG w/o ischemia [MS] 0148 HS Troponin I(!!): 68 stable [MS] 0148 BNP(!): 894.0 Mildy elevated, unknown baseline [MS] ED Course User Index [MM] Laurie Melo DO [MS] Tucker Bucio MD Medical Decision Making: Patient is an 86y F who presented as a CAT 2 trauma secondary to a fall atthe grocery store earlier today. Patient was found to have an alveolar ridge fracture as well as multiple avulsed teeth secondary to the fall. Dental and Plastic surgery were consulted for the patient. Additionally, the patient was found to have hypoxia on initial exam, which is not baseline for his patient. CT chest/abdomen/pelvis were performed and pending. Additionally, CT PE was ordered givenpatient's recent surgery and current hypoxia and syncope/fall earlier today. The results from the CT scans and final recommendations from consultants were pending at the time of signout to the night team. Laurie Melo DO ATTENDING NOTE I was present with the resident during the history and exam and during the obtaining of the haskins andcritical portions of the history and exam. I reviewed the resident's documentation and discussed the case with the resident and agree with the resident's medical decision making as documented in the residents note. Hypoxic, requiring 2L O2. HS trop elevated. Moved to a monitored bed. Signed out in stable condition. If cleared from a Trauma perspective, will need admission for syncope workup and workup of hypoxia. Nurys Read MD documented in this [id number] Emergency department Note* Joby Whitehead - 09/03/2022 9:50 PM EST /KAYLEIGH READ notified of critical Troponin value of 79. Hard copy of results given to . [id number] Consult note* Patito Sorenson DDS - 09/03/2022 9:39 PM EST Dental Consult The Dental Department was asked to consult on this patient by Emergency Department No chief complaint on file. 86 year old was admited for trauma and reports the following symptoms: History of present illness: No past medical history on file. No current facility-administered medications for this encounter. No current outpatient medications on file. Not on File Radiographic Examination No x-ray taken NOTE: ED contacted regarding this patient, patient had a trauma earlier today and I was consulted for her teeth from #5-#8 I could not see the entire image but patient is missing lower right posterior teeth, it looks like in the CT that patient has crown/ bridge in the maxillary right side. Severe Bone loss can be seen. Recommendations: It is recommended for patient to get a comprehensive examination done at [facility] office. Panoramic and full mouth series of radiographs needed for definitive diagnosis. Follow-up [facility] Dentistry office after patient gets discharged from ED Patito Sorenson DDS [facility] Work Phone: [phone]) 148-879612-15-2022 History of Present illness Narrative* Pita Davidson LISW-S - 09/03/2022 9:25 PM EST Pt a 86 yo F, CAT 2 trauma, presenting via [facility] from [facility] s/p fall forward vs her face with aveolar ridge fx and traumatic teeth extraction. Pt was at the grocery store and was dizzy at the time of the fall. Presenting to the ED is son Alek Hewitt ([phone]). SW providing emotional support and reuniting son with pt bedside. MARY ALICE Barrett, MSSA documented in this [id number] Consult note* Elier Camarillo MD - 09/03/2022 9:20 PM EST PLASTIC SURGERY FACIAL TRAUMA CONSULT Name: Michael Hewitt : 1935 HPI This 86 year old female date of injury was 09/03/2022. The patient was transported to [facility] by EMS. Initial evaluation at [facility]. Patient fell from standing at the grocery store earlier today hitting her face. Denies loss of consciousness. No blood thinners. She had imaging that showed incomplete dental extraction of multiple teeth and partial alveolar ridge fracture. Plastic Surgery consulted for alveolar ridge fracture. History obtained from son who is present at bedside. Medical history includes severe aortic stenosis s/p aortic valve replacement, acute on chronic CHF, CKD, DM, HTN. She lives at home alone but close to other family members who can help her. MECHANISM OF INJURY: Fall: from standing LOSS OF CONSCIOUSNESS: No ASSOCIATED INJURIES: None ROS: negative except per HPI PHYSICAL EXAMINATION There were no vitals filed for this visit. CONSTITUTIONAL: nad, conversational HEENT Visual Inspection: Swelling and ecchymosis of right lower chin, lip Lacerations: none Palpable Skeletal Deformities: none Nasal Examination: no external deformity Oral Examination: intraoral ecchymosis of right maxillary alveolar ridge Dentition: partial dentition with fracture of right maxillary alveolus Occlusion: occlusal stepoff at fracture site between teeth #8 and #9 EYE EXAMINATION: Eyelids: normal bilaterally Anterior Chamber: clear bilaterally Vision unable to examine Pupils PERRLA Eye Level normal bilateral Extraocular Motion EOMI- bilateral Cranial Nerves: all branches CN V intact and all branches CN VII intact Neck: unable to examine CV: regular rate Respiratory: NC in place XRAY/CT Studies: CT FACE 09/03/2022: Findings: Incomplete traumatic dental extraction involving tooth numbers 5, 6, 7, 8 and 9 associated with a nondisplaced fracture of the adjacent alveolar ridge. Soft tissue swelling superficial to the right maxilla and right mandibular body, without underlying fracture. LABS Basic Metabolic Panel None ASSESSMENT/PLAN: 86 year old female with fracture of right maxillary alveolar ridge associated withpartial subluxation of teeth 5, 6, 7, 8, 9. Occlusal plane is off with stepoff between teeth #8 and#9. Fracture site is mobile. Will discuss with attending role for closed reduction with resin splint fixation of teeth. Recommend dental consult Soft diet Oral hygiene using soft brush and mouth rinsing with Peridex twice a day Will discuss with attending role for closed reduction with resin splint fixation of teeth Remainder per primary team Will arrange follow up in Plastic Surgery Clinic at discharge These findings and recommendations will be discussed with the attending Plastic Surgery Staff On-Call: Riana Hewitt [phone] Elier Camarillo MD Plastic Surgery PGY-6 Service pager [phone] [id number] Emergency department Triage note* Delores Gaines RN - 09/03/2022 8:54 PM EST Prehospital Medications: 0.5mg dilaudid 4mg zofran [id number] History and physical note* Betina Wilkins., - 09/03/2022 8:53 PM EST [facility] DIVISION OF ACUTE CARE SURGERY TRAUMA SURGERY HISTORY AND PHYSICAL Michael Hewitt [id number] 09/03/22 BASIC INJURY INFORMATION: Level of activation: Category 2 Trauma Mode of transport: Ambulance: EMS Mechanism of injury: Fall from ground level Complicating features: Not applicable Protective measures: Not applicable Date of Injury: 09/03/2022 Time of Injury: Today Patient origin: Transfer from outside facility HISTORY OF PRESENT INJURY: Michael Hewitt is a 86 year old female brought in by EMS from [facility] following a fall with traumatic injuries. Patient was at the grocery store today and became dizzy and subsequently fell onto the ground from a standing position. She hit the right side of her face but denies loss of consciousness. No blood thinners. She had imaging that showed incomplete dental extraction of multiple teeth and partial alveolar ridge fracture. Tetanus updated prior to arrival. She was treated with 0.5mg IV Dilaudid and 4mg IV Zofran by the previous team prior to transfer and had a desaturation eventen route to about 86% but improved with 1L NC. Of note patient had a recent procedure on her left upper extremity and has limited range of motion and numbness of the arm that has been present since her surgery 1 week ago. Loss of consciousness: No Initial interventions (prior to ED disposition): None (Select all that apply.) Hemodynamic status witnessed in ED: New O2 requirements or new onset hypoxia and None applicable (Select all that apply.) PRIMARY SURVEY: Airway: Intact Breathing: Normal Breath Sounds: Breath sounds equal bilaterally. Circulation: Pulses: Normal Skin: Normal skin color, texture, and turgor. No rashes or lesions., Warm, and Dry Disability: Pupils: PERRL GCS: Best Eyes: 4 Best Verbal: 5 Best Motor: 6 Total: 15 SECONDARY SURVEY: Neurologic: Alert and oriented, appropriate, moves all extremities. HEENT: Head: Superficial injury, described as: abrasion to the right forehead superior to the eyebrow withtenderness to palpation. and Tender to palpation of the upper dental ridge and right maxilla. Ecchymosis to the chin. Dried blood and fresh blood in the mouth with several old missing teeth. No obvious dental socket swelling. Eyes: PERRLA, conjunctiva/corneas without lesions. and EOM intact, corrective lenses removed. Ears: No hemotympanum Nose: No bloody drainage. Throat: Additional findings: as above Neck: No midline tenderness, lacerations, or wounds Chest: Tender when palpating bilateral anterior and lateral chest wall without crepitus or ecchymosis. Pulmonary: Breath sounds clear, symmetrical; no wheezes, rales, or consolidation Cardiovascular: Pulses: Radial: R: normal/ L: normal and DP/PT: R: normal/ L: normal Abdomen: Non-distended; non-tender to palpation; no scars, lacerations, or contusions Rectal: Not performed. Pelvis/Perineum: Normal appearing genitalia, Pelvis is stable to palpation, and Additional findings: stage 1 sacral decubitus ulcer Musculoskeletal: Back/Spine: Thoracolumbar spinal column non-tender and No step-off or deformity noted Extremities: Additional findings: ROM normal. Tender to palpation of the bilateral thighs. Abrasionto the left knee. Adjunct Studies: CXR performed in [place] Check all that apply: None PAST MEDICAL HISTORY: Hypertension (HTN) and Diabetes mellitus (DM) PAST SURGICAL HISTORY: Left humerus fracture repair PRE-ADMISSION MEDICATIONS: Amlodipine Doxycycline Furosemide Levemir Losartan Metoprolol succinate Potassium Chloride Sodium Bicarbonate tablets Anti-platelet use: No Anti-coagulant use: No ALLERGIES: Not on File SOCIAL HISTORY: Social History Socioeconomic History Marital status: Single Living status: Home Primary language: Angolan Functional status: Independent Impairments: None Assistive Devices Used: None FAMILY HISTORY: No family history on file. REVIEW OF SYSTEMS: Skin: negative and bruising Eyes: negative review of symptoms Ears/Nose/Throat: negative and dental problem Respiratory: negative symptoms (no cough, hemoptysis, SOB, WILKES, PND, wheezing) Cardiovascular: negative symptoms (No CP/Pressure/Tightness, palpitations, orthopnea, PND, SOB, WILKES, edema, TEMPLE or vision change) Gastrointestinal: negative symptoms (no abdominal pain, anorexia, n/v, indigestion, constipation, or diarrhea) Genitourinary: no urinary symptoms Neurologic: negative symptoms (no syncope, seizures, weakness, gait problems, numbness, burning pain, tremors, or memory loss), numbness or tingling in hands or fingers, and dizziness negative (no arthritic pain, no joint swelling, no muscle weakness) Psychiatric: negative (no sleep disturbance, anxiety, memory loss, disorientation, inattention, feelings of depression) Hematologic/Lymphatic/Immunologic: negative (no anemia, bleeding, bruising) Endocrine: negative review of symptoms BASIC LABS Results for orders placed or performed during the hospital encounter of 09/03/22 CTA CHEST PULMONARY EMBOLISM W/ CTA Result Value Ref Range CTDI VOL 5.3 (mGy),6.0 (mGy),11.1 (mGy),10.3 (mGy),10.0 (mGy),8.6 (mGy) PHANTOM TYPE IEC Body Dosimetry Phantom,IEC Body Dosimetry Phantom,IEC Body Dosimetry Phantom,IEC Body DosimetryPhantom,IEC Body Dosimetry Phantom,IEC Body Dosimetry Phantom CT DLP 1204.7 (mGy.cm) CT Series Entire body,Entire body,Entire body,Entire body,Entire body,Entire body NEGATIVE P/E Negative for acute pulmonary embolus. ETHANOL, SERUM Result Value Ref Range Ethanol <10 None Detected mg/dL PARTIAL THROMBOPLASTIN TIME Result Value Ref Range aPTT 30 25 - 37 sec BASIC METABOLIC PANEL Result Value Ref Range Glucose 145 (H) 80 - 116 mg/dL Sodium 139 135 - 148 mmol/L Potassium 4.0 3.3 - 5.3 mmol/L Carbon Dioxide 27 21 - 30 mmol/L Chloride 102 97 - 111 mmol/L Blood Urea Nitrogen 38 (H) 8 - 22 mg/dL Creatinine 1.24 (H) 0.50 - 1.10 mg/dL Calcium 9.0 8.4 - 10.4 mg/dL Anion Gap 14 10 - 20 Estimated GFR (CKD-EPI) 43 (L) >=60 mL/min/1.73sqm PROTHROMBIN TIME AND INR Result Value Ref Range Protime 12.0 9.7 - 12.9 sec INR 1.06 0.90 - 1.10 LACTIC ACID Result Value Ref Range Lactate 1.2 0.5 - 2.0 mmol/L HIV1 HIV2 AGAB SCRN Result Value Ref Range HIV 1/2 Ag/Ab Nonreactive Nonreactive TYPE AND SCREEN Result Value Ref Range ABO Rh Type A Positive Ab Screen Interp Negative ABO Rh/Erlinda/TXRX History No Previous Results HIGH SENSITIVITY TROPONIN I Result Value Ref Range HS Troponin I 79 (HH) <=15 ng/L ABO RH TYPE Result Value Ref Range ABO Rh Type A Positive ABO Rh/Erlinda/TXRX History A Positive CBC WITH DIFFERENTIAL Result Value Ref Range WBC 12.0 (H) 4.5 - 11.5 K/uL RBC 3.48 (L) 4.00 - 5.20 M/uL Hemoglobin 10.4 (L) 12.0 - 15.0 g/dL Hematocrit 30.7 (L) 36.0 - 46.0 % MCV 88 80 - 100 fL MCH 29.9 26.0 - 34.0 pg MCHC 33.9 32.0 - 35.9 g/dL Platelet 245 150 - 400 K/uL RDW-CV 15.4 (H) 11.5 - 14.5 % MPV 7.7 7.5 - 11.2 fL Neutrophils 81.7 (H) 31.0 - 76.0 % Neutrophil # 9.82 (H) 1.50 - 8.00 K/uL Lymphocytes 9.1 (L) 24.0 - 44.0 % Lymphocytes # 1.10 1.00 - 4.80 K/uL Monocytes 6.9 2.0 - 11.0 % Monocyte # 0.83 0.20 - 1.00 K/uL Eosinophil 1.5 0.1 - 4.0 % Eosinophil # 0.18 0.00 - 0.70 K/uL Basophils 0.7 <=1.9 % Basophil # 0.09 0.00 - 0.20 K/uL MDW 18 <=20 RADIOLOGY: CXR: No acute cardiopulmonary abnormalities identified. XR PELVIS: Performed by outside hospital. No displaced fractures seen. Incidentally noted is a heavy mural calcification of the femoral arteries bilaterally. CT HEAD: Injury found: No Findings: There is no evidence of an intracranial hemorrhage, mass lesion or apparent acute infarct. Diffuse atrophy is present. Patchy diminished attenuation is seen in the deep white matter, most likely due to early small vessel ischemic change in a patient of this age. There is no apparent acute skull fracture. Similar findings were noted in the prior study. A mucocele or cyst is partially visualized inthe right maxillary sinus and the visualized paranasal sinuses are relatively clear. Ordered by: Outside hospital CT FACE: Injury found: Yes Findings: Incomplete traumatic dental extraction involving tooth numbers 5, 6, 7, 8 and 9 associated with a nondisplaced fracture of the adjacent alveolar ridge. Soft tissue swelling superficial to the right maxilla and right mandibular body, without underlying fracture. Ordered by: Outside hospital CT C-SPINE: Injury found: No Findings: No acute fracture or subluxation. Degenerative changes as described in the body of the report. Osteopenia. Possible multinodular thyroid goiter with possible small nodules measuring up to approximately 5mm. No follow up is required per ACR guidelines. Atherosclerotic coronary artery calcification. Ordered by: Outside hospital CTA Chest: Injury found: No Findings: Negative for acute pulmonary embolus. Mild interlobular septal thickening suggestive of early pulmonary edema. Enlarged main pulmonary artery measuring up to 3.5cm suggestive of pulmonary hypertension. A 8mm right upper lobe pleural based linear nodule likely present focal atelectasis or scarring. Ordered by: Trauma Surgery team CT A/P: Injury found: No Findings: No traumatic injury identified. Extensive atherosclerosis with mild stenosis of the distal superiormesenteric artery. Mild cardiomegaly with mild interlobular septal thickening suggestive of pulmonary edema. Diverticulosis without evidence of diverticulitis. Severe mitral annular calcifications. Ordered by: Trauma Surgery team CT T/L-SPINE RECONS: Injury found: No Findings: No acute fracture or malalignment of the thoracic or lumbar spine. Ordered by: Trauma Surgery team Additional plain films: Bilateral femur xrays No acute bilateral femur fractures. ASSESSMENT: Michael Hewitt is a 86 year old female who presented to the ED from [facility] for trauma evaluation after she was found to have dental injuries and alveolar ridge nondisplaced fracture. INJURIES: ncomplete traumatic dental extraction involving tooth numbers 5, 6, 7, 8 and 9 associated with a nondisplaced fracture of the adjacent alveolar ridge. Soft tissue swelling superficial to the right maxilla and right mandibular body, without underlying fracture. INCIDENTALS: Possible multinodular thyroid goiter with possible small nodules measuring up to approximately 5mm. Enlarged main pulmonary artery measuring up to 3.5cm suggestive of pulmonary hypertension. PLAN: Plastics and Dentistry consulted for recommendations based on injuries. Patient evaluated by Plastics in the ED. Soft diet, oral hygiene, and outpatient follow up for further evaluation. Dentistry also recommends outpatient exam at [facility]. CTA chest without PE or traumatic injuries. CT A/P without traumatic injuries. Xrays negative. No further recommendations from a trauma standpoint. Trauma will sign off. Patient likely to be admittedto medicine for dizziness and elevated troponins. Final disposition per ED. Final ED disposition: Regular nursing floor Patient discussed with Attending Trauma Surgeon, Dr. Torres. Franky Moffett DO Associated attestation - Nathan Gonzalez MD - 09/04/2022 4:35 AM EST Images from the original note were not included. Teaching Physician Note: I saw and evaluated the patient. I personally obtained the haskins and critical portions of the historyand physical exam. I reviewed the resident's documentation and discussed the patient with the resident. I agree with the resident's medical decision making as documented in the resident's note. Nathan Gonzalez MD Division of Trauma, Critical Care, [place], and Emergency General Surgery Department of Surgery [facility]12-15-2022 Emergency department Triage note* Delores Gaines RN - 09/03/2022 8:52 PM EST 86F, felt dizzy while at grocery store, fell from standing onto face [id number] Physician Emergency department Note* Nurys Read MD - 09/03/2022 8:33 PM EST HISTORY OF PRESENT ILLNESS 09/03/2022, 8:33 PM. Category: 2 The patient was brought to the ED by [facility]. The history is provided by EMS. Michael Hewitt ruel 86 year old female brought to the ED s/p fall from standing earlier today. Per EMS, patient was at the grocery store when she felt dizzy and fell. Patient was transferred here. The patient currently complains of facial pain. Pain has been constant and mild in severity. The patient denies neck pain or injury, back pain or injury, chest pain or injury, abdominal pain, pelvic pain, and any extremity pain or injury. Pre hospital information: patient received 0.5 mg of dilaudid and 4 mg of Zofran prior to transfer.Patient has fractured upper teeth. Patient was on 1 L O2 during transfer. REVIEW OF SYSTEMS Review of Systems Constitutional: Negative for activity change and fever. HENT: Negative for dental problem and nosebleeds. +facial pain Eyes: Negative for pain and visual disturbance. Respiratory: Negative for shortness of breath. Cardiovascular: Negative for chest pain. Gastrointestinal: Negative for abdominal pain. Genitourinary: Negative for flank pain. Musculoskeletal: Negative for back pain and neck pain. Skin: Negative for wound. Neurological: Negative for weakness and headaches. Psychiatric/Behavioral: Negative for confusion. PAST HISTORY Past Medical History: No known past medical history. Past Surgical History: Recent L arm surgery. Social History: Tobacco Use: denies Alcohol Use: denies Drug use: denies Family History: No known past family history. The patient's home medications have been reviewed. Allergies: No known allergies. PHYSICAL EXAM Primary Survey Airway: Intact Breathing: Bilateral breath sounds Circulation: Palpable bilateral radial, Palpable bilateral DP, and Palpable bilateral PT Spine precautions: WNL Total Glascow Coma Scale: 15 Eyes: eyes open = 4 Verbal: alert and oriented = 5 Motor: obeys commands = 6 Secondary Survey Constitutional: Alert Head: Atraumatic. No cephalohematoma. Midface is stable. Chronic skin changes over the face. Eyes: PERRL. Pupils are 3 mm to 2 mm bilaterally. EOMI. No conjunctival injection. Superficial abrasion over the R eyebrow. Ears: No hemotympanum. Nose: No nasal deformity. No septal hematoma. Mouth/Throat: Airway intact. No malocclusion. Tenderness to palpation over the R maxilla with ecchymosis. Upper teeth missing. Bleeding controlled. Significant ecchymosis over the entire R chin. Neck: Trachea midline. No cervical midline bony tenderness. No deformities or step-offs of the cervical spine . Cardiovascular: Normal rate. Regular rhythm. Heart sounds normal. Peripheral pulses are 2+ in all extremities. Pulmonary/Chest: Lungs are clear bilaterally. No decreased breath sounds. No external evidence of trauma to the chest. Chest wall is stable. Anterior chest wall tenderness. Rash under L breast. No crepitus. No flail segment. No asymmetric rise. Abdominal: No distension. Soft. Suprapubic tenderness to palpation. Old bruises periumbilically. Noexternal evidence of abdominal trauma. Genitourinary: No evidence of genital injury. Back: There is no midline bony tenderness to palpation of the thoracic or lumbar spines. No deformities or step-offs of the thoracic or lumbar spine. No abrasions or ecchymosis. Stage 1 pressure ulcer over the sacrum. Rectal: No gross blood. Musculoskeletal: Pelvis stable to compression and non tender. RUE: No deformities. Full passive ROM. There is no bony tenderness. LUE: No deformities. Full passive ROM. There is no bony tenderness. RLE: No deformities. Full passive ROM. Tenderness to palpation over the thigh. Abrasion and ecchymosis over the knee. LLE: No deformities. Full passive ROM. Mild tenderness to palpation to the distal femur. Skin: Normal color. No lacerations. Neurological: GCS score is 15. Strength is 5/5 in upper and lower extremities bilaterally. Distal motor and sensation grossly intact in bilateral extremities. Subjective numbness in LUE for 1 week per patient. Alert normally oriented Psychiatric: Normal affect. ED COURSE IN TRAUMA BAY 8:39 PM: Patient is started on 2 L through a nasal canula 8:40 PM. The initial vital signs are: BP: 144/56. HR: 75. SpO2: 93. RR 12. 8:43 PM. BP: 151/60. HR: 68. SpO2: 98. RR 20. 8:47 PM. BP: 137/78. HR: 75. SpO2: 98. RR 20. Consultations: Trauma is at bedside and assisted with evaluation and formulation of plan. SCRIBE ATTESTATION 09/03/2022, 9:35 PM. This note is prepared by Dee Grossman acting as Scribe for Laurie Nichols. All medical record entries made by the Scribe were at my direction and personally dictated by me. Laura reviewed the record and confirm that the note above accurately reflects all work, treatment, procedures, and medical decision making performed by me. Laurie Nichols. MEDICAL DECISION MAKING and ED COURSE Nursing triage and assessment notes reviewed and incorporated Evaluated by EM attending Nurys Read Course: ED Course as of 09/04/22 2301 Bhumi Sep 03, [id number] Vitals reviewed, patient hemodynamically stable, however, hypoxic in the trauma bay with saturations sitting around 83%; placed on 2L NC with immediate improvement in saturations [MM] 2115 CT HEAD: Injury found: No Findings: There is no evidence of an intracranial hemorrhage, mass lesion or apparent acute infarct. Diffuse atrophy is present. Patchy diminished attenuation is seen in the deep white matter, most likely due to early small vessel ischemic change in a patient of this age. There is no apparent acute skull fracture. Similar findings were noted in the prior study. A mucocele or cyst is partially visualized inthe right maxillary sinus and the visualized paranasal sinuses are relatively clear. Ordered by: Outside hospital CT FACE: Injury found: Yes Findings: Incomplete traumatic dental extraction involving tooth numbers 5, 6, 7, 8 and 9 associated with a nondisplaced fracture of the adjacent alveolar ridge. Soft tissue swelling superficial to the right maxilla and right mandibular body, without underlying fracture. Ordered by: Outside hospital CT C-SPINE: Injury found: No Findings: No acute fracture or subluxation. Degenerative changes as described in the body of the report. Osteopenia. Possible multinodular thyroid goiter with possible small nodules measuring up to approximately 5mm. No follow up is required per ACR guidelines. Atherosclerotic coronary artery calcification. Ordered by: Outside hospital [MM] 2129 Plastic surgery consulted due to alveolar ridge fracture [MM] 2137 XR CHEST 1 VIEW AP OR PA IMPRESSION: No acute cardiopulmonary abnormality identified. [MM] 2137 Dental consulted due to concerns for missing teeth secondary to trauma. [MM] 221 Complete Blood Count W/Diff(!): WBC 12.0(!) RBC 3.48(!) Hemoglobin 10.4(!) Hematocrit 30.7(!) MCV 88 MCH 29.9 MCHC 33.9 Platelet 245 RDW-CV% 15.4(!) MPV 7.7 Neutrophils 81.7(!) Neutrophil # 9.82(!) Lymphocytes 9.1(!) Lymph Absolute 1.10 Monocytes 6.9 Monocyte Absolute 0.83 Eosinophil 1.5 Eosinophil Absolute 0.18 Basophils 0.7 Basophil # 0.09 MDW 18 Mild Leukocytosis with mild anemia. HgB was 9.7 about 1 year prior, so likely a chronic anemia [MM] 221 BASIC METABOLIC PANEL(aka BMP) [CH8](!): Glucose 145(!) Sodium 139 Potassium 4.0 Carbon Dioxide 27 Chloride 102 BUN 38(!) Creatinine 1.24(!) Calcium 9.0 Anion Gap 14 Estimated GFR 43(!) No significant electrolyte abnormalities that would have lead to the fall. The patient has a mildlyelevated creatinine, however this is below previously documented creatine in Sep 2020 [MM] 2215 CT chest/abdomen/pelvis and CT PE protocol performed due to concerns for hypoxia on exam and concerns for fall earlier in the day [MM] 2218 Patient complaining of pain in face, given fentanyl 25 mcg [MM] 2224 Dental recommendations: : It is recommended for patient to get a comprehensive examination done at [facility]. Panoramic and full mouth series of radiographs needed for definitive diagnosis. [MM] 2225 XR RT FEMUR MIN 2 VIEWS IMPRESSION: No acute right femur fracture. [MM] 2225 X-ray Left Femur Min 2 Views IMPRESSION: No acute left femur fracture. [MM] 2250 CT Pulm Emb Chest IMPRESSION: 1. Negative for acute pulmonary embolus. 2. Mild interlobular septal thickening suggestive of early pulmonary edema. 3. Enlarged main pulmonary artery measuring up to 3.5 cm suggestive of pulmonary hypertension. 4. A 8 mm right upper lobe pleural-based linear nodule likely present focal atelectasis or scarring. [MS] 2250 CT L-SPINE W/O CONTRAST IMPRESSION: No fracture or malalignment of the lower thoracic or lumbar spine. [MS] 2250 CT T-SPINE W/O CONTRAST IMPRESSION: No acute fracture or malalignment of the thoracic spine. Please see separate report for CTA chest 09/03/2022 [MS] 2301 CT Abd/Pelvis Ed I/V [place] With Contrast IMPRESSION: 1. No traumatic injury identified. 2. Extensive atherosclerosis with mild stenosis of the distal superior mesenteric artery. 3. Mild cardiomegaly with mild interlobular septal thickening suggestive of pulmonary edema. 4. Diverticulosis without evidence of diverticulitis. 5. Severe mitral annular calcifications. [MS] WedSep 04, 2022 0053 BP(!): 131/109 [MS] 0054 Temperature: 97.6 F (36.4 C) [MS] 0054 Heart Rate: 64 [MS] 0054 Respiratory Rate: 16 [MS] 0054 Reportedly 79% on arrival,now 95% on 2L [MS] 0054 EKG w/o ischemia [MS] 0148 HS Troponin I(!!): 68 stable [MS] 0148 BNP(!): 894.0 Mildy elevated, unknown baseline [MS] ED Course User Index [MM] Laurie Melo DO [MS] Tucker Bucio MD Medical Decision Making: Patient is an 86y F who presented as a CAT 2 trauma secondary to a fall atthe grocery store earlier today. Patient was found to have an alveolar ridge fracture as well as multiple avulsed teeth secondary to the fall. Dental and Plastic surgery were consulted for the patient. Additionally, the patient was found to have hypoxia on initial exam, which is not baseline for his patient. CT chest/abdomen/pelvis were performed and pending. Additionally, CT PE was ordered givenpatient's recent surgery and current hypoxia and syncope/fall earlier today. The results from the CT scans and final recommendations from consultants were pending at the time of signout to the night team. Laurie Melo DO ATTENDING NOTE I was present with the resident during the history and exam and during the obtaining of the haskins andcritical portions of the history and exam. I reviewed the resident's documentation and discussed the case with the resident and agree with the resident's medical decision making as documented in the residents note. Hypoxic, requiring 2L O2. HS trop elevated. Moved to a monitored bed. Signed out in stable condition. If cleared from a Trauma perspective, will need admission for syncope workup and workup of hypoxia. Nurys Read MD [facility] Work Phone: [phone] 372-996508-31-2022 NotePROCEDURE: XR HUMERUS LT MIN 2V HISTORY: Pain ; Left humerus wound and discharge; fracture and surgical repair one year ago COMPARISON: XR shoulder left 04/21/2022 FINDINGS: BONES:Interval realignment of proximal humeral fracture secured with anterior lateral plate and screws SOFT TISSUES:SPECT postsurgical findings. Numerous anterior skin deborah. EFFUSION:None visible. OTHER: Negative. IMPRESSION: 1. Mechanical fixation/repair of remote proximal humerus fracture. 2. No appreciable acute abnormality. Electronically authenticated by: АНДРЕЙ CHAPARRO Date: 2022-05-20 13:49[facility]08-27-2022 NoteMR#: [id number] [facility] Pt. Name: Eliz Hewitt Admitted: 05/15/2022 Discharged: 05/16/2022 Date of : 1935 Physician: Juan Manuel Alonzo MD DISCHARGE SUMMARY PRIMARY CARE PHYSICIAN: Dr. Helms. CONSULTING PHYSICIAN: Orthopedics. FINAL DIAGNOSES: 1. Status post open reduction and internal fixation left humerus cleared for discharge from orthopedic standpoint. 2. Mild hyperkalemia, holding of losartan upon discharge. No more, stop potassium supplement and repeat metabolic panel with PCP in 3-5 days. 3. Essential hypertension, controlled. 4. Stage 3 chronic kidney disease with acute worsening, resolved. 5. Chronic diastolic congestive heart failure, clinically compensated. 6. Diabetes mellitus type 2. Continue home regimen. 7. Gastroesophageal reflux disease, asymptomatic. 8. History of recent TAVR on January 13, continue anti-platelet therapy per home regimen. 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 The patient tolerated this procedure well. Postoperatively, the patient monitored on medical floor and pain management withdrawal was provided and repeat labs were concerning for mild hyperkalemia. So, losartan was discontinued and the patient was advised not to use of potassium supplement at home as per the home regimen and follow up with PCP in next 3-5 days with repeat metabolic panel/potassium level and then resume losartan as per the primary care physician recommendation, the patient understands. PHYSICAL EXAMINATION: GENERAL: When examined today, hemodynamically stable. NECK: Supple. CARDIOVASCULAR: Regular. ABDOMEN: Positive bowel sounds. EXTREMITIES: No edema. LABORATORY DATA: Reviewed. MEDICATIONS: Per the computer reconciliation list. Electronically Signed by: Juan Manuel Alonzo MD 05/19/2022 08:06 A Juan Manuel Alonzo MD Date Dict: 05/16/2022/10:14 A/Juan Manuel Alonzo MD Date Trans: 05/16/2022 11:03 A/rabia [id number] cc: Yoko Helms M.D. [address] [place] [id number] [place], [place] 4581208-03-2022 Note PROCEDURE: XR SHOULDER LT 2V or > HISTORY: Fracture of upper end of humerus , follow-up COMPARISON: XR shoulder left 07/24/2021 FINDINGS: BONES:Bone resorption at site of prior comminuted fracture proximal humerus with no bony bridging. Mild dorsal apex angulation. SOFT TISSUES:No visible soft tissue swelling. EFFUSION:None visible. OTHER: Negative. IMPRESSION: 1. Prominent bone resorption of ends of prior proximal humerus fracture leaving a substantial gap between the bones. No osseous healing. 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 Discussed with patient due to her minimal pain she can continue to live with this condition or we can preform surgery. Discussed with patient if she would choose to proceed with surgery I will consult with Dr. Pollard (trama surgery) Patient states she would like to hear the surgical options. Discussed with patient we will call her when we have more information or she can follow up with Dr. Pollard in office. E Business Manager is Dr. Arellano with [place] May call Alek (son) to discuss options [phone] [employer] Other 04-28-2022 NoteMR#: [id number] [facility] Pt. Name: Eliz Hewitt Admitted: 01/13/2022 Discharged: 01/14/2022 Date of : 1935 Physician: Ramon Mejia M.D. DISCHARGE SUMMARY ADDITIONAL ADMITTING PHYSICIAN: Ramon Mejia M.D. PRIMARY DIAGNOSIS: Severe aortic stenosis, status post TAVR. PROCEDURE PERFORMED: TAVR. HOSPITAL COURSE: The patient was admitted with severe aortic stenosis, underwent TAVR procedure with Enoch Ultra 20 mm transcatheter heart valve via percutaneous transfemoral access. There was no paravalvular leak. Postprocedurally, the patient did well and followup echocardiogram the next day showed normal valve function. The patient is currently hemodynamically stable without any complication. PHYSICAL EXAMINATION: GENERAL: Alert, oriented, in no acute distress. NECK: Supple. CARDIOVASCULAR: Normal rate and rhythm sinus. RESPIRATORY: Lungs are clear to auscultation. GI: Soft, nontender. EXTREMITIES: No pitting edema; right femoral access site appears normal. No hematoma. 2+ pulses. DISCHARGE MEDICATION: Continue taking medication as prescribed. DISPOSITION: The patient will be discharged home in a stable condition. INSTRUCTIONS: 1. Continue taking medication as prescribed. 2. Follow up with Dr. Arellano, [place] [facility] and Dr. Gregory, CT surgery in 1 month for post TAVR followup. 3. Repeat echocardiogram in 1 month. 4. DAPT with aspirin and Plavix for 3 months. Electronically Signed by: Ramon Mejia M.D. 01/19/2022 03:12 P Ramon Mejia M.D. I personally saw this patient on the day of the encounter, performed the haskins portion(s) of the service and participated in the management and confirm the resident's documentation. Please note there may be an additional personal documentation from me. Date Dict: 01/14/2022/10:58 A/Víctor Dotson MD Date Trans: 01/15/2022 05:59 A/rabia [id number] [facility]11-04-2021 Evaluation note* Encounter Date Diagnosis Assessment Notes Treatment Notes Treatment Clinical Notes Jul, Other closed nondisplaced fracture of proximal end of left humerus with routine healing, subsequent encounter (ICD-10 - S42.295D) Patient is progressing well from this injury. We discussed the importance of continuing to work on range of motion and strength exercise. Call with questions or concerns [employer] Other 09-21-2021 Evaluation note* Encounter Date Diagnosis Assessment Notes Treatment Notes Treatment Clinical Notes May, Other closed nondisplaced fracture of proximal end of left humerus with routine healing, subsequent encounter (ICD-10 - S42.295D) Radiographs reviewed with patient and company. Advised she is progressing well. Continue motion and strengthening exercises. Activity as tolerated. Call with questions/concerns. [employer] Other Consult note Author Андрей Marsh [facility] September 23, 2022 3:12pm Note Date/Time September 23, 2022 9: 09am [facility] [address] [place] [address] Neurology Consult Note Signed Patient: Eilz Hewitt MR#: [id number] : 1935 Acct:[id number] Age/Sex: 86 / F Adm Date: 2 Loc: 4N Room: 9Q9236-0 Type: ADM IN Attending Dr: Donn Joseph DO Copies to: AMARJIT Dunbar MD Michael R. Frings, DO Steven Benedict, MD~ HPI Consult Date: 09/23/22 Relief Master: MILES Quezada with Dr. Marsh Reason for consult: Bilateral foot drop Consult Narrative HPI: Patient is an 86-year-old female with medical history of diabetes and hypertension. She has been seen in neurological consultation at the request of the hospital service for bilateral foot drop. Patient was admitted on 09/19/2022 after a fall at home. Last known well was 4 PM. She laid on the ground for approximately 12 hours before family found her. She has no recall of the fall. She states she was dreaming and landed on the floor. She thinks she fell out ofbed. She was found with 1 leg in the bathroom and the rest of her body in the bedroom. Her bathroom was approximately 5 to 6 feet away from her bed. She fell just before Travis as well. At that time she tripped over a lip in the sidewalk. At that time she reported that she could not get her foot to move. Sitting on the bed she feels lightheaded. She denies any persistent positional lightheadedness or dizziness. She denies headache or vision changes. Her daughter is present and states she has been walking slower over the last severalmonths. She complains of pain in the right knee and hip. This increases when she is weightbearing. She has a walker that she uses at home. Lastly her daughter reports that she had speech difficulty yesterday which seems to be better today. In the emergency room her troponin was elevated at 134 and her CPK was elevated at 745. She was hyperglycemic with glucose of 348. Signs of acute kidney injury with BUN of 23 and creatinine 1.09. She had a CT scan of the headthat was nonacute. Hand x- rays showed a fourth metacarpal fracture on the left with improved alignment after being reduced in the emergency room. No other acute injury was noted. Per chart review the patient was doing well until yesterday. She started to experience more discomfort and increased lethargy. She was noted to have bilateral foot drop that was painful. Therefore neurologywas consulted. She did have a CT scan of the cervical spine on admission which was nonacute. She also had x-rays of the right shoulder, left knee, left ankle,and right hip. Other than the metacarpal fracture no acute injury was noted. Review of Systems Constitutional Constitutional: Denies chills and Denies fever(s) Eyes Eyes: Denies blurry vision, Denies diplopia and Denies loss of vision ENT Ears, Nose, Mouth, and Throat: Denies nasal congestion and Denies nasal discharge Cardiovascular Cardiovascular: Denies chest pain and Denies palpitations Respiratory Respiratory: Denies dyspnea Gastrointestinal Gastrointestinal: Denies nausea Genitourinary Genitourinary: Denies dysuria Musculoskeletal Musculoskeletal: Reports arthralgias, Reports myalgias and Reports radiating pain into limb Integumentary/Breasts Skin/Breast: Denies pruritus Neurologic Neurologic: Reports as per HPI Psychiatric Psychiatric: Denies confusion PMFSH Vaccinated for COVID-19?: Yes Medical History (Updated 09/23/22 @ 09:24 by Jodi Swift, ANP-) Diabetes mellitus, type 2 Hypertension Surgical History History of heart valve replacement History of surgery on arm Social History Smoking Status: Never smoker Substance Use Type: None Meds Medications and Allergies Allergies acetaminophen [From Dodson] Allergy (Verified 09/20/22 02:12) Unknown Reaction codeine Allergy (Verified 09/20/22 02:12) Hives hydrocodone [From Dodson] Allergy (Verified 09/20/22 02:12) Unknown Reaction hydroquinone Allergy (Verified 09/20/22 02:12) Unknown Reaction sulfamethoxazole [From Bactrim] Allergy (Verified 09/20/22 02:12) Unknown Reaction trimethoprim [From Bactrim] Allergy (Verified 09/20/22 02:12) Unknown Reaction Home Medications amlodipine 10 mg tablet 10 mg PO DAILY 09/19/22 [History Confirmed 09/20/22] aspirin 81 mg tablet,delayed release 81 mg PO DAILY 09/19/22 [History Confirmed 09/20/22] furosemide 20 mg tablet 40 mg PO DAILY 09/19/22 [History Confirmed 09/20/22] insulin detemir U-100 100 unit/mL subcutaneous solution (Levemir U-100 Insulin) 35 unit subcut DAILY 09/19/22 [History Confirmed 09/20/22] metoprolol succinate 25 mg tablet,extended release 24 hr 25 mg PO DAILY 09/19/22[History Confirmed 09/20/22] potassium chloride 20 mEq tablet,extended release 20 meq PO DAILY 09/19/22 [History Confirmed 09/20/22] sodium bicarbonate 650 mg tablet 1,300 mg PO BID 09/19/22 [History Confirmed 09/20/22] Exam Physical Exam Vital Signs: Temp Pulse Resp BP Pulse Ox O2 Del Method 98.6 F 61 15 118/57 L 93 L Room Air 09/23/22 08:00 09/23/22 08:00 09/23/22 04:30 09/23/22 08:00 09/23/22 08:00 09/23/22 08:00 Narrative: GENERAL EXAM: * Constitutional - Patient appears well nourished and well groomed * Patient is alert and oriented x3. * Apical is regular rate and irregular rhythm. No murmur was appreciated. * Lung sounds are clear to auscultation, diminished * Abdomen is soft with normal bowel sounds * Neck is supple without carotid bruit * Ophthalmoscopic exam deferred. No injection or drainage noted. * Bruising noted around her eye NEURO EXAM: * Attention span/concentration normal * Speech is clear and fluent * Cranial nerve II. Vision is intact. MEGAN * Cranial nerve III, IV and . Extraocular muscles are intact. No nystagmus is appreciated * Cranial nerve V and VII. No facial asymmetry is appreciated. Temperature and pinprick is equal bilaterally * Cranial nerve VIII hearing is intact * Cranial nerve IX and X speech is clear fluent. Palate elevates symmetrically * Cranial nerve XI head turn side to side full range of motion. Shoulder shrug is equal bilaterally * Cranial nerve XII tongue is midline full range of motion MOTOR EXAM: * Strength is 5/5 in bilateral upper extremity. No pronator drift was appreciated. Splinting on the left noted. She does have swelling and bruising noted in the left distal upper extremity. * Lower extremity exam is limited due to discomfort. Strength is 4/5 bilateral ly in proximal lower extremities. She has giveaway weakness due to discomfort in the hips and knees. * 5/5 in the distal left lower extremity with extension and dorsiflexion of the ankle. Difficult to gauge strength in the right ankle due to giveaway weakness secondary to pain. On my exam is not consistent with foot drop. * Muscle tone and bulk are normal * Gait not assessed SENSORY EXAM: * Temperature, pinprick, vibration are intact in all 4 extremities and symmetric. She has significant loss of vibratory sense below the knee which is absent at the great toe bilaterally. Proprioception is absent. CEREBELLAR EXAM: * Zwceyy-kr-[id number] and alternating movements are intact and normal in bilateral upper extremities. Limited exam on the left due to splinting of the wrist and hand * Alternating movements are intact and normal in lower extremities REFLEX EXAM: * 09/23 throughout Results Laboratory Findings 09/22/22 16:30 09/22/22 16:30 Diagnostic Findings Imaging/Impressions: ITS Impressions Hip X-Ray 09/19/22 20:51 IMPRESSION: FOURTH METACARPAL FRACTURE OF THE LEFT HAND WITH IMPROVED ALIGNMENT ON POSTREDUCTION IMAGING. NO ACUTE FINDINGS ARE SEEN INVOLVING THE RIGHT HIP/PELVIS, RIGHT SHOULDER, CHEST, LEFT KNEE OR ANKLE.. Impression dictated by: Bello Nowak Jr..O.09/20/2022 9:30 AM Dictation Location: [facility]- Head CT 09/19/22 21:53 IMPRESSION: NO ACUTE FACIAL BONE INJURY. NO ACUTE INTRACRANIAL ABNORMALITY. CT CERVICAL SPINE WITHOUT CONTRAST WITH 3D RECONSTRUCTIONS: CLINICAL HISTORY: Fall. COMPARISON: None TECHNIQUE: Spiral axial unenhanced images were obtained through the cervical spine. Sagittal, coronal and 3D volume-rendered reconstructions were also reviewed. This CT exam was performed using one or more following dose reductiontechniques: Automated exposure control, adjustment of the mA and/or kV accordingto patient size, or use of iterative reconstruction technique. FINDINGS: No acute fracture. Vertebral body heights appear maintained. Diffuse mild spondylosis with endplate, uncovertebral and facet joint degenerative change. No prevertebral soft tissue swelling. Visualized lung apices demonstrateno acute findings. IMPRESSION: NO CERVICAL SPINE FRACTURE Impression dictated by: Bello Nowak Jr..Michelle.09/20/2022 8:41 AM Dictation Location: [facility]-04 Chest X-Ray 09/22/22 15:35 IMPRESSION: DEVELOPING BIBASILAR PLEURAL AND/OR PARENCHYMAL CHANGE, GREATER ON THE LEFT Impression dictated by: Maddie Miner M.D.09/22/2022 3:55 PM Dictation Location: [facility]-[address] 09/22/22 17:06 IMPRESSION: No acute intracranial pathology. Impression dictated by: Abram Baltazar M.D.09/22/2022 5:45 PM Dictation Location: [place] [address] Therapy Recommendations Therapy Recommendations: OT Recommendations OT Recommended Discharge [facility] Facility Location OT Recommended Services at Physical Therapy,Occupational Therapy Discharge PT Recommendations PT Recommended Discharge [facility] Facility Location PT Recommended Services at Physical Therapy,Occupational Therapy Discharge Assessment/Plan (1) Fall: Code(s): W19.XXXA - Unspecified fall, initial encounter Status: Acute (2) Foot drop, bilateral: Code(s): M21.371 - Foot drop, right foot; M21.372 - Foot drop, left foot Status: Acute Plan FallIs an 86-year-old female with medical history of diabetes and hypertension. On the evening of 09/19/2022 and laid on the ground for approximately 12 hour. EMS was called and she was brought to the emergency room. She did suffer a fourth metacarpal fracture on her left hand. CT scan of the head and cervical spine were nonacute. Extensive x-rays of the right shoulder and right hip and left knee and ankle which was nonacute. She did have a fall just before Travis as well when she tripped over a lip in the sidewalk. She has been walking more slowly recently. In addition her daughter reports some speech difficulty yesterday patient has no recall of the event. Etiology for fall is multifactorial. Given she has no recall of the event seizure is in the differential. We will get an MRI scan of the brain to further evaluate for acute intracranial pathology that would contribute to a fall as well as an MRA of the head to assess for vertebrobasilar syndrome. Carotid ultrasound has beencompleted and velocities look unremarkable. Formal report is pending. Neurology is actually consulted for bilateral foot drop. On physical exam I do not appreciate true foot drop. Left ankle flexion and dorsiflexion is strong. Right ankle flexion dorsiflexion is limited due to pain. 1. CT scan of the head nonacute. MRI scan of the brain is pending 2. MRA of the head is pending 3. Carotid ultrasound is pending 4. Echocardiogram shows EF of 60 to 65%, left atrium mildly dilated, right atrium moderately dilated, bioprosthetic aortic valve, moderate aortic stenosis,severe mitral stenosis, moderate to severe tricuspid regurgitation, severe pulmonary hypertension. Inferior vena cava moderately dilated with a decrease in inspiratory collapse, no mention of thrombus or mass 5. Anemia with hemoglobin 8.8. Was 11.3 on admission. Primary team will address as necessary 6. ABGs on admission suggested respiratory alkalosis. Chest x-ray showed developing bibasilar pleural-parenchymal changes. Greater on the left. 7. LFTs normal 8. CPK 745 on admission and improved to 375 9. High-sensitivity troponin peaked at 155. 134 on admission. EKG shows normal sinus rhythm. 10. Urinalysis showed 2+ leukocyte esterase with 10-19 WBC. No bacteria or nitrates. Urine culture contaminated. 11. PT OT recommends SNF 12. X-ray of the right ankle 13. Fall precautions 14. We will check B12, folate, and TSH 15. 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 The patient did have an MRI scan ofthe brain which did not reveal any obvious evidence of acute intracranial process such as stroke or cerebral ischemia contributing to her symptoms. The patient does not have any evidence of cerebral artery stenosis or occlusion contributing to cerebral hypoperfusion. The patient would benefit from evaluation by physical therapy, Occupational Therapy, speech therapy to assess for therapy and rehab needs. I counseled the patient and her family on the possible diagnosis, prognosis, evaluation, and treatment options. The patient maybenefit from an EMG as an outpatient to assess for extent of underlying nerve damage. Documented By: Андрей Marsh MD 09/23/22 0922 Signed By: <Electronically signed by MD Андрей Marsh> 09/23/22 1512 <Electronically signed by AMARJIT Swift> 09/23/22 1039 [facility] Work Phone: Discharge summary Author Donn Joseph [facility] September 23, 2022 4:20pm Note Date/Time September 23, 2022 4: 20pm [facility] [address] [place], [place] [id number] Discharge Summary Signed Patient: Eliz Hewitt MR#: [id number] : 1935 Acct:[id number] Age/Sex: 86 / F Adm Date: 2 Loc: 4 Room: [address] [place] [address]: Donn Joseph DO Copies to: MD Donn Yoon, DO~ Providers Date of Discharge: 09/23/22 Discharging Provider: Donn Joseph Primary Care Provider: Yoko Helms Consults: 09/20/22 02:10 Consult to Dietitian Routine 09/20/22 12:17 Consult to Occupational Therapy Routine Consult to Physical Therapy Routine 09/22/22 19:07 Consult to Neurology Routine Discharge Diagnosis (1) Fall: (2) Foot drop, bilateral: Final Diagnosis Final Discharge Diagnosis: In addition to the above diagnoses: 3. Elevated CK level 4. Type II myocardial infarction 5. Diabetes mellitus 6. Peripheral edema Summary Hospital Course Hospital course: The patient is an 86-year-old female presented to the emergency department on 09/20/2022. She had been found out at home for an unknown amount of time after experiencing a fall. It was unclear exactly if the patient had lost consciousness. She was admitted for further evaluation and treatment. She had mild troponin elevation which down trended and EKG showed no evidence of ischemia. She had a slight elevation in her CK level. She was provided IV fluids for possible rhabdomyolysis and CK level down trended. Patient has experienced overall functional decline and atrophy. She worked with PT/OT who recommended shelter facility. The day prior to her discharge she developed some mild tachypnea and somnolence. Also was noted to be edematous. BNP was elevated and she was provided IV Lasix. She is breathing much easier now and will be discharged to shelter facility. She did have some bilateral lower extremity weakness for which neurology was consulted. Her work-up was largely benign. She can consider EMG testing for this as an outpatient however at this time no further work-up is required. She will be discharged today in hemodynamically stable condition to shelter facility. Physical Examination: GENERAL APPEARANCE: Alert, resting comfortably HEENT: NCAT, MMM NECK: Neck soft w/o masses, no JVD CARDIAC: Normal S1 and S2. No S3, S4 or murmurs. LUNGS: Clear to auscultation bilaterally. no wheeze/rhonchi/rales ABDOMEN: Positive bowel sounds. Soft, nontender. No guarding or signs of an acute abdomen MUSCULOSKELETAL: No joint erythema or tenderness. EXTREMITIES: Mild pitting edema bilateral lower extremities.? Painful foot drop right and left foot also noted PSYCHIATRIC: Appropriate mood and affect 35 minutes were spent coordinating the discharge of this patient Time Spent with Patient Time spent providing/coordinating discharge services (# min): 35 Diagnostic Studies Completed and Pending Studies Pending studies at discharge: 09/20/22 12:28 US carotid doppler BI Routine 09/22/22 16:20 Urine Culture Stat 09/23/22 09:14 EEG awake & asleep Routine Preliminary micro results at discharge 09/22/22 16:20 Urine Culture - Preliminary Urine - Richardson Catheter Providencia rettgeri Labs on day of discharge: 09/23/22 12:00: POC Glucose 139 09/23/22 10:47: Vitamin B12 545, Folate 9.7, TSH 3rd Generation 2.54 09/23/22 08:35: POC Glucose 143, POC Glucose Comment Glu2: cleaned meter 09/22/22 21:04: POC Glucose 237 09/22/22 17:24: Sample Site Right radial, ABG pH 7.50 H, ABG pCO2 28.6 L*, ABG pO2 61.9 L, ABG HCO3 21.8 L, ABG Total CO2 22.7 L, ABG O2 Saturation 93.6 L, ABGO2 Content 6.0 L, ABG Base Excess -0.7, FiO2 21, Critical Value 09/22/22 16:50: POC Glucose 231, POC Glucose Comment Glu2: cleaned meter 09/22/22 16:30: B-Natriuretic Peptide 3128.0 H 09/22/22 16:30: Lactic Acid 1.0 09/22/22 16:30: PHA Creatinine Clear 34.48, Sodium 131 L, Potassium 3.6, Chloride 102, Carbon Dioxide 20.0 L, Anion Gap 12.6, BUN 26 H, Creatinine 1.03, Est GFR ( Amer) > 60, Est GFR (Non-Af Amer) 51, Glucose 232 H, Calcium 7.9 L, Total Bilirubin 0.5, AST 24, ALT 17, Alkaline Phosphatase 77, Total Protein 5.8 L, Albumin 2.4 L, Globulin 3.4, Albumin/Globulin Ratio 0.7 09/22/22 16:30: Corrected WBC 8.6, Uncorrected WBC Count 8.6, RBC 2.94 L, Hgb 8.8 L, Hct 26.5 L, MCV 89.9, MCH 30.0, MCHC 33.3, RDW 15.6 H, Plt Count 161, MPV8.2, Neut % (Auto) 77.3, Lymph % (Auto) 10.4, Gibson % (Auto) 9.8, Eos % (Auto) 1.6, Baso % (Auto) 0.9, Nucleat RBC Rel Count 0.1, Neut # (Auto) 6.6, Lymph # (Auto) 0.9 L, Gibson # (Auto) 0.8, Eos # (Auto) 0.1, Baso # (Auto) 0.1 09/22/22 16:20: Urine Color Dark yellow A, Urine Appearance Cloudy A, Urine pH 5.5, Ur Specific [place] 1.025, Urine Protein 100 H, Urine Glucose (UA) 500 H, Urine Ketones Trace H, Urine Occult Blood Trace H, Urine Nitrite Negative, UrineBilirubin Negative, Urine Urobilinogen Normal, Ur Leukocyte Esterase 2+ H, UrineRBC 1-2, Urine WBC 10-19 H, Ur Squamous Epith Cells 5-9 H, Ur Renal Epithelial Cell None seen, Urine Bacteria None seen, Hyaline Casts 5-9 H, Fine Granular Casts 1-2 H, Other Casts None seen, Urine Yeast None seen Exam Physical Exam Vital Signs: Temp Pulse Resp BP Pulse Ox O2 Del Method 97.3 F L 64 20 105/66 97 Room Air 09/23/22 15:10 09/23/22 15:10 09/23/22 15:10 09/23/22 15:10 09/23/22 15:10 09/23/22 15:10 Discharge Plan Discharge Plan Patient Disposition: [facility] Facility Diet: Diabetic Additional Instructions: SNF Physician to manage: - PT/OT to eval and treat - Monitor VS routine - Urinary assessments - richardson catheter discontinued 09/23/22 - Fall precautions - high fall risk, recent fall - Monitor blood sugars - Dx. DM - Orthopedic assessments - Dx. Left fourth metacarpal neck fracture - Neuro assessments - Routine skin assessments/care - Wound care: -- Every 3 days - coccyx/bilateral buttocks- scarring with denuded areas- clean with theraworx protect, apply large mepilex border foam Prescriptions: Continued aspirin 81 mg tablet,delayed release (DR/EC) 81 mg PO DAILY Patient Comments: TAKE 1 TABLET BY MOUTH IN THE MORNING sodium bicarbonate 650 mg tablet 1,300 mg PO BID Patient Comments: TAKE 2 TABLETS BY MOUTH TWICE A DAY amlodipine 10 mg Tablet 10 mg PO DAILY furosemide 20 mg tablet 40 mg PO DAILY Patient Comments: TAKE 1 TABLET BY MOUTH EVERY DAY IN THE MORNING metoprolol succinate 25 mg tablet extended release 24 hr 25 mg PO DAILY Patient Comments: TAKE 1 TABLET BY MOUTH EVERY DAY Levemir U-100 Insulin 100 unit/mL solution 35 unit SUBCUT DAILY Patient Comments: INJECT 35 UNITS SUBCUTANEOUSLY EVERY DAY potassium chloride 20 mEq tablet extended release 20 meq PO DAILY Patient Comments: TAKE 1 TABLET BY MOUTH EVERY DAY Follow Up: [facility] [Provider Group] - 09/28/22 2:30 pm (You have been scheduled for a follow up appointment with Dr. Pollard for the following date andtime, please call to reschedule if needed.) [facility] [place] [Outside] - 10/20/22 1:30 pm (With Kathy GOODMAN and Dr. Marsh) Yoko Helms MD [Primary Care Provider] - (Please call to schedule a follow up appointment with PCP upon discharge from SNF.) Documented By: Donn Joseph DO 09/23/22 16 15 Signed By: <Electronically signed by Donn Joseph DO> 09/23/22 1620 [facility] Work Phone: Evaluation noteNo [employer] Other Evaluation note* Diagnosis Syncope, unspecified syncope type- Primary Fall Unspecified fall Hypoxia Hypoxemia Acute pulmonary edema (HCC) Acute edema of lung, unspecified Bradycardia, unspecified Other hypertrophic cardiomyopathy (HCC) Other hypertrophic cardiomyopathy [facility] Diagnosis Onset Date Resolution Status Fall acute Fracture of fourth metacarpal bone acute [facility] Work Phone: Evaluation note* Diagnosis Onset Date Resolution Status Fall acute Foot drop, bilateral acute Fracture of fourth metacarpal bone acute [facility] Work Phone: History and physical note Author Donn Joseph [facility] September 20, 2022 4:57am Note Date/Time September 20, 2022 4: 57am [facility] [address] [place] [address] Hospitalist H&P Signed Patient: Eliz Hewitt MR#: [id number] : 1935 Acct:[id number] Age/Sex: 86 / F Adm Date: 2 Loc: Room: [address] [place] [address] Type: ADM IN Attending Dr: Donn Joseph DO Copies to: MD Donn Yoon, ~ HPI DATE OF EXAMINATION: 09/20/22 CHIEF COMPLAINT: Fall HISTORY OF PRESENT ILLNESS: This patient is an 86-year-old female who presented to the emergency department this evening after a reported fall at home. Her last known well was reportedly 4 PM and she was down for an unknown amount of time. Patient is appropriately alert and oriented but cannot describe the fall. She takes a baby aspirin daily. She has been feeling fine otherwise up until now. It is estimated she was on the ground for approximately 1 hour prior to EMSs arrival. Her vital signs on presentation revealed a heart rate of 78, respirations 26, blood pressure 175/74, 98% O2 saturation on room air. CBC revealed mild anemia with an H&H of 11.3/34.0%. Chemistries significant for mild hyponatremia 134, borderline anion gap metabolic acidosis with a bicarbonate level of 20.8. BUN/creatinine 23/1.09. Hyperglycemia noted at 348. High- sensitivity troponin was elevated at 134, CK suggesting possible mild rhabdomyolysis at 745. The patient denies any chest pain or shortness of breath. She was extensively imaged in the ER to rule out any acute fracture. Left fourth metacarpal fracture was noted. This was splinted and reduced by the ER physician. Given abnormal labs and unknown nature of fall the patient was admitted to the [facility] for further evaluation and treatment. Physical Examination: GENERAL APPEARANCE: Alert, up in bed AAOx3 HEENT: NCAT, MMM NECK: Neck soft w/o masses, no JVD CARDIAC: Normal S1 and S2. No S3, S4 or murmurs. LUNGS: Clear to auscultation bilaterally. no wheeze/rhonchi/rales ABDOMEN: Positive bowel sounds. Soft, nontender. No guarding or signs of an acute abdomen MUSCULOSKELETAL: Splint in place to left hand EXTREMITIES: No clubbing, cyanosis or edema PSYCHIATRIC: Appropriate mood and affect Assessment and plan: 1. Fall Unknown if patient lost consciousness. Appears appropriately oriented at this time. Will consult PT/OT. Continue to monitor. If further concerning for syncope may need more extensive work-up. We will continue telemetry for now. 2. Type II myocardial infarction Mildly hypertensive and tachycardic on presentation likely demand ischemia from this. Continue to trend troponin levels. Continue home aspirin. No EKG changes. 3. Elevated CK level Patient could be at risk for rhabdomyolysis. We will continue IV fluids. 4. Chronic kidney disease Likely near baseline. She does not appear clinically severely dehydrated. We will continue IV fluids for treatment of rhabdomyolysis and also continue home bicarbonate supplements. Review of Systems Review of Systems All other systems reviewed & are negative unless noted below or in HPI PMFSH Vaccinated for COVID-19?: Yes Medical History Diabetes mellitus, type 2 Hypertension Surgical History History of heart valve replacement History of surgery on arm Social History Smoking Status: Never smoker Substance Use Type: None Meds Medications and Allergies Allergies acetaminophen [From Dodson] Allergy (Verified 09/20/22 02:12) Unknown Reaction codeine Allergy (Verified 09/20/22 02:12) Hives hydrocodone [From Dodson] Allergy (Verified 09/20/22 02:12) Unknown Reaction hydroquinone Allergy (Verified 09/20/22 02:12) Unknown Reaction sulfamethoxazole [From Bactrim] Allergy (Verified 09/20/22 02:12) Unknown Reaction trimethoprim [From Bactrim] Allergy (Verified 09/20/22 02:12) Unknown Reaction Home Medications amlodipine 10 mg tablet 10 mg PO DAILY 09/19/22 [History Confirmed 09/20/22] aspirin 81 mg tablet,delayed release 81 mg PO DAILY 09/19/22 [History Confirmed 09/20/22] furosemide 20 mg tablet 40 mg PO DAILY 09/19/22 [History Confirmed 09/20/22] insulin detemir U-100 100 unit/mL subcutaneous solution (Levemir U-100 Insulin) 35 unit subcut DAILY 09/19/22 [History Confirmed 09/20/22] metoprolol succinate 25 mg tablet,extended release 24 hr 25 mg PO DAILY 09/19/22[History Confirmed 09/20/22] potassium chloride 20 mEq tablet,extended release 20 meq PO DAILY 09/19/22 [History Confirmed 09/20/22] sodium bicarbonate 650 mg tablet 1,300 mg PO BID 09/19/22 [History Confirmed 09/20/22] Exam Physical Exam Vital Signs: Temp Pulse Resp BP Pulse Ox O2 Del Method 97.8 F 90 16 147/72 H 95 Room Air 09/20/22 02:03 09/20/22 02:03 09/20/22 02:03 09/20/22 02:03 09/20/22 02:03 09/20/22 03:03 Results Lab Results Labs: Laboratory Last Values Corrected WBC 10.6 X10E3/uL (3.8-11.6) 09/19/22 21:08 Uncorrected WBC Count 10.6 x10E3/uL (3.8-11.6) 09/19/22 21:08 RBC 3.81 X10E6/uL (3.60-5.00) 09/19/22 21:08 Hgb 11.3 g/dL (11.8-15.4) L 09/19/22 21:08 Hct 34.0 % (34.0-46.4) 09/19/22 21:08 MCV 89.4 fl (80-100) 09/19/22 21:08 MCH 29.7 pg (24.7-34.3) 09/19/22 21:08 MCHC 33.2 g/dL (32.0-35.0) 09/19/22 21:08 RDW 15.5 % (11.9-15.3) H 12/31/22 21:08 Plt Count 285 x10E3/uL (150-450) 09/19/22 21:08 MPV 7.8 fl (6.3-10.7) 09/19/22 21:08 Neut % (Auto) 88.2 % (.) 09/19/22 21:08 Lymph % (Auto) 4.4 % (.) 09/19/22 21:08 Gibson % (Auto) 6.7 % (.) 09/19/22 21:08 Eos % (Auto) 0.1 % (.) 09/19/22 21:08 Baso % (Auto) 0.6 % (.) 09/19/22 21:08 Nucleat RBC Rel Count 0.0 /100 WBC (0-0.5) 09/19/22 21:08 Neut # (Auto) 9.3 x10E3/uL (1.8-7.7) H 09/19/22 21:08 Lymph # (Auto) 0.5 x10E3/uL (1.00-4.8) L 09/19/22 21:08 Gibson # (Auto) 0.7 x10E3/uL (0.0-0.8) 09/19/22 21:08 Eos # (Auto) 0.0 x10E3/uL (0.0-0.45) 09/19/22 21:08 Baso # (Auto) 0.1 x10E3/uL (0.0-0.2) 09/19/22 21:08 Monocyte Dist Width 18.24 % (0.00-20.00) 09/19/22 21:08 PHA Creatinine Clear 30.82 09/19/22 21:08 Sodium 134 mmol/L (136-146) L 09/19/22 21:08 Potassium 3.8 mmol/L (3.5-5.1) 09/19/22 21:08 Chloride 99 mmol/L (95-114) 09/19/22 21:08 Carbon Dioxide 20.8 mmol/L (22.0-30.0) L 09/19/22 21:08 Anion Gap 18.0 mEq/L (6.0-15.0) H 09/19/22 21:08 BUN 23 mg/dL (9-23) 09/19/22 21:08 Creatinine 1.09 mg/dL (0.44-1.03) H 09/19/22 21:08 Est GFR ( Amer) 58 mL/Min 09/19/22 21:08 Est GFR (Non-Af Amer) 48 mL/Min 09/19/22 21:08 Glucose 348 mg/dL (70-100) H 09/19/22 21:08 Calcium 9.0 mg/dL (8.2-10.2) 09/19/22 21:08 Total Bilirubin 1.1 mg/dL (0.3-1.2) 09/19/22 21:08 AST 44 U/L (10-42) H 09/19/22 21:08 ALT 19 U/L (10-60) 09/19/22 21:08 Alkaline Phosphatase 100 U/L (32-92) H 09/19/22 21:08 Total Creatine Kinase 745 U/L (22-269) H 09/19/22 21:08 Troponin I High Sens 138 pg/mL (0-15) H* 09/19/22 23:45 Total Protein 7.6 gm/dL (6.1-7.9) 09/19/22 21:08 Albumin 3.5 gm/dL (3.2-5.5) 09/19/22 21:08 Globulin 4.1 gm/dL 09/19/22 21:08 Albumin/Globulin Ratio 0.9 09/19/22 21:08 Lipase 26.0 U/L (22-51) 09/19/22 21:08 Urine Color Yellow (Yellow) 09/19/22 21:00 Urine Appearance Clear (Clear) 09/19/22 21:00 Urine pH 6.5 (5.0-9.0) 09/19/22 21:00 Ur Specific [place] 1.026 (1.001-1.030) 09/19/22 21:00 Urine Protein 300 mg/dL (Negative) H 09/19/22 21:00 Urine Glucose (UA) >=1000 mg/dL (Normal) H 09/19/22 21:00 Urine Ketones 1+ (Negative) H 09/19/22 21:00 Urine Occult Blood 2+ (Negative) H 09/19/22 21:00 Urine Nitrite Negative (Negative) 09/19/22 21:00 Urine Bilirubin Negative (Negative) 09/19/22 21:00 Urine Urobilinogen Normal mg/dL (Normal) 09/19/22 21:00 Ur Leukocyte Esterase Negative (Negative) 09/19/22 21:00 Urine RBC 5-9 /HPF (0-4) H 09/19/22 21:00 Urine WBC 1-2 /HPF (0-4) 09/19/22 21:00 Ur Squamous Epith Cells 0-1 /HPF (0-2) 09/19/22 21:00 Urine Bacteria None seen (None Seen) 09/19/22 21:00 Hyaline Casts 0-8 /LPF (0-8) 09/19/22 21:00 Documented By: Donn Joseph DO 09/20/22 04 50 Signed By: <Electronically signed by Donn Joseph DO> 09/20/22 0451 [facility] Work Phone: Histzwr general Narrative - Reported* Type Description Date Surgical History appendix Surgical History gall bladder Surgical History hysterectomy Surgical History carpal tunnel release Surgical History torsel tunnel Surgical History heart [employer] Other Hiszonh general Narrative - Reported* Type Description Date Medical History high cholesterol Medical History heart disease Medical History high blood pressure Medical History diabetes mallitus Surgical History appendix Surgical History gall bladder Surgical History hysterectomy Surgical History carpal tunnel release Surgical History torsel tunnel Surgical History heart [employer] Other Hisdygk general Narrative - Reported* Type Description Date Medical History high cholesterol Medical History heart disease Medical History high blood pressure Medical History diabetes mallitus Surgical History appendix Surgical History gall bladder Surgical History hysterectomy Surgical History carpal tunnel release Surgical History torsel tunnel Surgical History heart Hospitalization History SEE SURGICAL HX [employer] Other Hisyqjm general Narrative - Reported* Type Description Date Medical History high cholesterol Medical History heart disease Medical History high blood pressure Medical History diabetes mallitus Surgical History appendix Surgical History gall bladder Surgical History hysterectomy Surgical History carpal tunnel release Surgical History torsel tunnel Surgical History heart Surgical History Heart cath Hospitalization History SEE SURGICAL HX [employer] Other Progress note Author Dusty Singh [facility] September 20, 2022 4:29pm Note Date/Time September 20, 2022 12 :28pm [facility] [address] [place] [address] Hospitalist Progress Note Signed Patient: Eliz Hewitt MR#: [id number] : 1935 Acct:[id number] Age/Sex: 86 / F Adm Date: 2 Loc: Room: [address] [place] [address] Type: ADM IN Attending Dr: Dusty Singh MD Copies to: ~ Date of Service: 09/20/2022 Subjective Subjective Narrative: Hospitalist Progress Note ASSESSMENT AND PLAN: 86-year-old female who presented to the emergency department this evening after a reported fall at home. Fall She was found on the floor half in the floor and upper half outside the bathroom. She doesn't remember anything. Last time she was known Ok was in the evenings. Her last fall was more than one year ago per her son ct brain shows no acute intracranial process urinalysis didn?t show any pyuria EKG NSR PT/OT Echocardiography to look for any structural heart disease (she has murmur) Telemetry carotid duplex ultrasound Left fourth metacarpal neck Fx XR ( Hip/Knee/Hand/Chest/Shoulder) shows fourth metacarpal fracture of the left hand with improved alignment on postreduction imaging. no acute findings are seen involving the right hip/pelvis, right shoulder, chest, left knee or ankle.. Immobilization and pain control Outpatient follow up Elevated CK level continue IV fluids. for one more day CK in am Type II ME No chest pain/SOB or EKG changes DM blood sugars were reviewed sliding scale insulin and accuchecks. basal insulin: Chronic Conditions: Unless mentioned Above, All chronic conditions are stable. home medications/treatment if any were continued DVT Px : Addressed INTERVAL HPI: As Above, Pt resting in bed. feeling better little bit confused ROS: Denies any chest pain, SOB Deposition: To be determined Plan of care Discussed with: the medical team, the patient and her son at bedside Exam Physical Exam Vital Signs: Temp Pulse Resp BP Pulse Ox O2 Del Method 36.8 C 90 16 114/64 95 Room Air 09/20/22 08:00 09/20/22 08:00 09/20/22 08:00 09/20/22 08:00 09/20/22 08:00 09/20/22 08:00 Narrative: GEN: NAD, Cooperative, left ocular ecchymosis NECK: ? JVD, supple LUNGS: CTA. normal respiratory effort CV: nl S1 S2; 3/6 systolic mummer ABD: Soft, ND, NT, + BS, ? rebound, ? guarding, ? HSM EXT: No peripheral edema, No calf muscle tenderness, left arm in splint. NEURO: generalized weakness , ? FND. PSYCH: flat affect, AOx2 Objective Lab Results 09/20/22 05:03 09/20/22 05:03 Meds Allergies and Active Meds Allergies acetaminophen [From Dodson] Allergy (Verified 09/20/22 02:12) Unknown Reaction codeine Allergy (Verified 09/20/22 02:12) Hives hydrocodone [From Dodson] Allergy (Verified 09/20/22 02:12) Unknown Reaction hydroquinone Allergy (Verified 09/20/22 02:12) Unknown Reaction sulfamethoxazole [From Bactrim] Allergy (Verified 09/20/22 02:12) Unknown Reaction trimethoprim [From Bactrim] Allergy (Verified 09/20/22 02:12) Unknown Reaction Active Meds: Active Medications Generic Name Dose Route Start Last Admin Trade Name Freq PRN Reason Stop Dose Admin Amlodipine Besylate 10 mg 09/20/22 09:00 09/20/22 08:37 Amlodipine 10 Mg Tablet PO 09/20/23 08:59 10 mg DAILY ZION Administration Aspirin 81 mg 09/20/22 09:00 09/20/22 08:37 Aspirin 81 Mg Tablet. PO 09/20/23 08:59 81 mg DAILY ZION Administration Heparin Sodium (Porcine) 5,000 unit 09/20/22 21:00 Heparin 5,000 Unit/Ml Vial SUBCUT 09/20/23 20:59 BID ZION Sodium Chloride 1,000 mls @ 100 mls/hr 09/20/22 04:15 0.9% Sodium Chloride 1,000 Ml IV 09/20/23 04:14 .Q10H ZION Insulin Glargine 35 units 09/20/22 09:00 09/20/22 08:37 Insulin Glargine 300 Units/3 Ml Insuln.Pen SUBCUT 09/20/23 08:59 35 units DAILY ZION Administration Metoprolol Succinate 25 mg 09/20/22 09:00 09/20/22 08:37 Metoprolol Succinate 25 Mg Tab.Er.24h PO 09/20/23 08:59 25 mg DAILY ZION Administration Morphine Sulfate 1 mg 09/20/22 12:15 Morphine Sulfate 2 Mg/Ml Vial IV-PUSH Q4H PRN Pain Scale 7 - 10 Ondansetron HCl 4 mg 09/20/22 12:15 Ondansetron 4 Mg/2 Ml Vial IV-PUSH 09/20/23 12:14 Q6H PRN Nausea And Vomiting Oxycodone HCl 5 mg 09/20/22 04:04 09/20/22 07:31 Oxycodone Ir 5 Mg Tablet PO 5 mg Q6HR PRN Administration Pain Scale 4 - 7 Sodium Bicarbonate 1,300 mg 09/20/22 09:00 09/20/22 08:37 Sodium Bicarbonate 650 Mg Tablet PO 09/20/23 08:59 1,300 mg BID ZION Administration Sodium Chloride 0 ml 09/19/22 20:46 Sodium Chloride 0.9 % 10 Ml Syringe IV-PUSH 09/19/23 20:45 PRN PRN Flush Documented By: Dusty Singh MD 09/20/22 1226 Signed By: <Electronically signed by Dusty Singh MD> 09/20/22 1626 [facility] Work Phone: Progress note Author Donn Joseph [facility] September 21, 2022 4:05pm Note Date/Time September 21, 2022 4: 05pm [facility] [address] [place] [address] Hospitalist Progress Note Signed Patient: Eliz Hewitt MR#: [id number] : 1935 Acct:[id number] Age/Sex: 86 / F Adm Date: 2 Loc: Room: [address] [place] [address] Type: ADM IN Attending Dr: Donn Joseph DO Copies to: ~ Date of Service: 09/21/2022 Subjective Subjective Narrative: Hospitalist Progress Note Subjective: Patient seen examined the bedside. She is resting comfortably. provides majority of the history. No acute vents overnight. Physical Examination: GENERAL APPEARANCE: Somnolent, resting, HEENT: NCAT, MMM NECK: Neck soft w/o masses, no JVD CARDIAC: Normal S1 and S2. No S3, S4 or murmurs. LUNGS: Clear to auscultation bilaterally. no wheeze/rhonchi/rales ABDOMEN: Positive bowel sounds. Soft, nontender. No guarding or signs of an acute abdomen MUSCULOSKELETAL: No joint erythema or tenderness. EXTREMITIES: No clubbing, cyanosis or edema PSYCHIATRIC: Appropriate mood and affect ASSESSMENT AND PLAN: 86-year-old female who presented to the emergency department this evening after a reported fall at home. Fall -PT OT has evaluated the patient. We will see if she qualifies for shelter. Family is agreeable. Echocardiogram is pending. Formal read on carotid ultrasound is pending however velocities do not seem increased. Suspectvasovagal episode. Left fourth metacarpal neck Fx XR ( Hip/Knee/Hand/Chest/Shoulder) shows fourth metacarpal fracture of the left hand with improved alignment on postreduction imaging. no acute findings are seen involving the right hip/pelvis, right shoulder, chest, left knee or ankle.. Immobilization and pain control Outpatient follow up Elevated CK level Responded well to IV fluids. Type II ME No chest pain/SOB or EKG changes DM blood sugars were reviewed sliding scale insulin and accuchecks. basal insulin Exam Physical Exam Vital Signs: Temp Pulse Resp BP Pulse Ox O2 Del Method 97.7 F 79 16 138/66 90 L Room Air 09/21/22 11:52 09/21/22 11:52 09/21/22 11:52 09/21/22 11:52 09/21/22 11:52 09/21/22 11:52 Objective Lab Results 09/21/22 04:59 09/21/22 04:59 Microbiology Results Microbiology 09/19/22 21:00 Urine, Richardson Urine Culture - Preliminary No Growth 1 Day Meds Allergies and Active Meds Allergies acetaminophen [From Dodson] Allergy (Verified 09/20/22 02:12) Unknown Reaction codeine Allergy (Verified 09/20/22 02:12) Hives hydrocodone [From Dodson] Allergy (Verified 09/20/22 02:12) Unknown Reaction hydroquinone Allergy (Verified 09/20/22 02:12) Unknown Reaction sulfamethoxazole [From Bactrim] Allergy (Verified 09/20/22 02:12) Unknown Reaction trimethoprim [From Bactrim] Allergy (Verified 09/20/22 02:12) Unknown Reaction Active Meds: Active Medications Generic Name Dose Route Start Last Admin Trade Name Rupal PRN Reason Stop Dose Admin Amlodipine Besylate 10 mg 09/20/22 09:00 09/21/22 08:42 Amlodipine 10 Mg Tablet PO 09/20/23 08:59 10 mg DAILY ZION Administration Aspirin 81 mg 09/20/22 09:00 09/21/22 08:42 Aspirin 81 Mg Tablet. PO 09/20/23 08:59 81 mg DAILY ZION Administration Dextrose 0 gm 09/20/22 12:34 Dextrose 20 % In Water 10 Gm/50 Ml Syringe IV-PUSH 09/20/23 12:33 PRN PRN Hypoglycemia Glucose 0 gm 09/20/22 12:34 Dextrose 40% Gel 15 Gm Tube PO 09/20/23 12:33 PRN PRN Hypoglycemia Heparin Sodium (Porcine) 5,000 unit 09/20/22 21:00 09/21/22 08:42 Heparin 5,000 Unit/Ml Vial SUBCUT 09/20/23 20:59 5,000 unit BID ZION Administration Sodium Chloride 1,000 mls @ 100 mls/hr 09/20/22 04:15 09/21/22 11:39 0.9% Sodium Chloride 1,000 Ml IV 09/22/22 04:14 100 mls/hr .Q10H ZION Administration Insulin Aspart 0 units 09/20/22 17:00 09/21/22 12:01 Insulin Aspart 300 Units/3 Ml Insuln.Pen SUBCUT 09/20/23 16:59 2 units TID.WM.HS ZION Administration Protocol Insulin Glargine 35 units 09/20/22 09:00 09/21/22 08:43 Insulin Glargine 300 Units/3 Ml Insuln.Pen SUBCUT 09/20/23 08:59 Not Given DAILY ZION Metoprolol Succinate 25 mg 09/20/22 09:00 09/21/22 08:42 Metoprolol Succinate 25 Mg Tab.Er.24h PO 09/20/23 08:59 25 mg DAILY ZION Administration Morphine Sulfate 1 mg 09/20/22 12:15 Morphine Sulfate 2 Mg/Ml Vial IV-PUSH Q4H PRN Pain Scale 7 - 10 Ondansetron HCl 4 mg 09/20/22 12:15 Ondansetron 4 Mg/2 Ml Vial IV-PUSH 09/20/23 12:14 Q6H PRN Nausea And Vomiting Oxycodone HCl 5 mg 09/20/22 04:04 09/20/22 07:31 Oxycodone Ir 5 Mg Tablet PO 5 mg Q6HR PRN Administration Pain Scale 4 - 7 Sodium Bicarbonate 1,300 mg 09/20/22 09:00 09/21/22 08:42 Sodium Bicarbonate 650 Mg Tablet PO 09/20/23 08:59 1,300 mg BID ZION Administration Sodium Chloride 0 ml 09/19/22 20:46 Sodium Chloride 0.9 % 10 Ml Syringe IV-PUSH 09/19/23 20:45 PRN PRN Flush Documented By: Donn Joseph DO 09/21/22 16 03 Signed By: <Electronically signed by Donn Joseph DO> 09/21/22 1605 [facility] Work Phone: Progress note Author Donn Joseph [facility] September 22, 2022 7:14pm Note Date/Time September 22, 2022 7: 14pm [facility] [address] [place] [address] Hospitalist Progress Note Signed Patient: Eliz Hewitt MR#: [id number] : 1935 Acct:[id number] Age/Sex: 86 / F Adm Date: 2 Loc: Room: [address] [place] [address] Type: ADM IN Attending Dr: Donn Joseph DO Copies to: ~ Date of Service: 09/22/2022 Subjective Subjective Narrative: Hospitalist Progress Note Subjective: Patient seen examined the bedside. More uncomfortable today. More lethargic. Physical Examination: GENERAL APPEARANCE: Somnolent, resting, HEENT: NCAT, MMM NECK: Neck soft w/o masses, no JVD CARDIAC: Normal S1 and S2. No S3, S4 or murmurs. LUNGS: Clear to auscultation bilaterally. no wheeze/rhonchi/rales ABDOMEN: Positive bowel sounds. Soft, nontender. No guarding or signs of an acute abdomen MUSCULOSKELETAL: No joint erythema or tenderness. EXTREMITIES: Mild pitting edema bilateral lower extremities. Painful foot drop right and left foot also noted PSYCHIATRIC: Appropriate mood and affect ASSESSMENT AND PLAN: 86-year-old female who presented to the emergency department this evening after a reported fall at home. Fall -PT OT has evaluated the patient. We will see if she qualifies for shelter. Family is agreeable. Echocardiogram is pending. Formal read on carotid ultrasound is pending however velocities do not seem increased. Suspectvasovagal episode. Left fourth metacarpal neck Fx XR ( Hip/Knee/Hand/Chest/Shoulder) shows fourth metacarpal fracture of the left hand with improved alignment on postreduction imaging. no acute findings are seen involving the right hip/pelvis, right shoulder, chest, left knee or ankle.. Immobilization and pain control Outpatient follow up Elevated CK level Responded well to IV fluids. Type II ME No chest pain/SOB or EKG changes DM blood sugars were reviewed sliding scale insulin and accuchecks. basal insulin Peripheral edema, bilateral foot drop Patient has tenderness to both lower extremities. Unclear if this is a neuropathic type of pain. She is able to move both her feet. Her overall mental status is somewhat lethargic today. Stat labs, chest x-ray and BNP suggest some fluid overload. We will diurese. Unclear if this foot drop is apparent now due to her overall lethargy. CT of the head is nonacute today. Wewill consult neurology for any further recommendations. Exam Physical Exam Vital Signs: Temp Pulse Resp BP Pulse Ox O2 Del Method 98.4 F 78 22 114/69 92 L Room Air 09/22/22 16:00 09/22/22 16:00 09/22/22 16:00 09/22/22 16:00 09/22/22 16:00 09/22/22 16:00 Objective Lab Results 09/22/22 16:30 09/22/22 16:30 Microbiology Results Microbiology 09/19/22 21:00 Urine, Richardson Urine Culture - Final 15,000 colonies/ml mixed bacterial skin contaminants 2 Days ABG Interpretation ABG results: 09/22/22 17:24 ABG pH 7.50 H ABG pCO2 28.6 L* ABG pO2 61.9 L ABG HCO3 21.8 L ABG Total CO2 22.7 L ABG O2 Saturation 93.6 L ABG O2 Content 6.0 L ABG Base Excess -0.7 Meds Allergies and Active Meds Allergies acetaminophen [From Dodson] Allergy (Verified 09/20/22 02:12) Unknown Reaction codeine Allergy (Verified 09/20/22 02:12) Hives hydrocodone [From Dodson] Allergy (Verified 09/20/22 02:12) Unknown Reaction hydroquinone Allergy (Verified 09/20/22 02:12) Unknown Reaction sulfamethoxazole [From Bactrim] Allergy (Verified 09/20/22 02:12) Unknown Reaction trimethoprim [From Bactrim] Allergy (Verified 09/20/22 02:12) Unknown Reaction Active Meds: Active Medications Generic Name Dose Route Start Last Admin Trade Name Freq PRN Reason Stop Dose Admin Acetaminophen 650 mg 09/22/22 13:09 Acetaminophen 325 Mg Tablet PO 09/22/23 13:08 Q6H PRN Pain Amlodipine Besylate 10 mg 09/20/22 09:00 09/22/22 08:48 Amlodipine 10 Mg Tablet PO 09/20/23 08:59 10 mg DAILY ZION Administration Aspirin 81 mg 09/20/22 09:00 09/22/22 08:46 Aspirin 81 Mg Tablet. PO 09/20/23 08:59 81 mg DAILY ZION Administration Dextrose 0 gm 09/20/22 12:34 Dextrose 20 % In Water 10 Gm/50 Ml Syringe IV-PUSH 09/20/23 12:33 PRN PRN Hypoglycemia Glucose 0 gm 09/20/22 12:34 Dextrose 40% Gel 15 Gm Tube PO 09/20/23 12:33 PRN PRN Hypoglycemia Heparin Sodium (Porcine) 5,000 unit 09/20/22 21:00 09/22/22 08:46 Heparin 5,000 Unit/Ml Vial SUBCUT 09/20/23 20:59 5,000 unit BID ZION Administration Insulin Aspart 0 units 09/20/22 17:00 09/22/22 17:22 Insulin Aspart 300 Units/3 Ml Insuln.Pen SUBCUT 09/20/23 16:59 3 units TID.WM.HS ZION Administration Protocol Insulin Glargine 35 units 09/20/22 09:00 09/22/22 08:48 Insulin Glargine 300 Units/3 Ml Insuln.Pen SUBCUT 09/20/23 08:59 35 units DAILY ZION Administration Metoprolol Succinate 25 mg 09/20/22 09:00 09/22/22 08:47 Metoprolol Succinate 25 Mg Tab.Er.24h PO 09/20/23 08:59 25 mg DAILY ZION Administration Morphine Sulfate 1 mg 09/20/22 12:15 Morphine Sulfate 2 Mg/Ml Vial IV-PUSH Q4H PRN Pain Scale 7 - 10 Ondansetron HCl 4 mg 09/20/22 12:15 Ondansetron 4 Mg/2 Ml Vial IV-PUSH 09/20/23 12:14 Q6H PRN Nausea And Vomiting Oxycodone HCl 5 mg 09/20/22 04:04 09/20/22 07:31 Oxycodone Ir 5 Mg Tablet PO 5 mg Q6HR PRN Administration Pain Scale 4 - 7 Sodium Bicarbonate 1,300 mg 09/20/22 09:00 09/22/22 08:47 Sodium Bicarbonate 650 Mg Tablet PO 09/20/23 08:59 1,300 mg BID ZION Administration Sodium Chloride 0 ml 09/19/22 20:46 Sodium Chloride 0.9 % 10 Ml Syringe IV-PUSH 09/19/23 20:45 PRN PRN Flush Documented By: Donn Joseph DO 09/22/22 19 10 Signed By: <Electronically signed by Donn Joseph DO> 09/22/221913 [facility] Work Phone: Progress note Author Donn Joseph [facility] September 23, 2022 4:09pm Note Date/Time September 23, 2022 4: 09pm [facility] [address] [place] [address] Hospitalist Progress Note Signed Patient: Eliz Hewitt MR#: [id number] : 1935 Acct:[id number] Age/Sex: 86 / F Adm Date: 2 Loc: Room: 3Q2885-4 Type: ADM IN Attending Dr: Donn Joseph DO Copies to: ~ Date of Service: 09/23/2022 Subjective Subjective Narrative: Hospitalist Progress Note Subjective: Patient seen examined the bedside. More uncomfortable today. More lethargic. Physical Examination: GENERAL APPEARANCE: Somnolent, resting, HEENT: NCAT, MMM NECK: Neck soft w/o masses, no JVD CARDIAC: Normal S1 and S2. No S3, S4 or murmurs. LUNGS: Clear to auscultation bilaterally. no wheeze/rhonchi/rales ABDOMEN: Positive bowel sounds. Soft, nontender. No guarding or signs of an acute abdomen MUSCULOSKELETAL: No joint erythema or tenderness. EXTREMITIES: Mild pitting edema bilateral lower extremities. Painful foot drop right and left foot also noted PSYCHIATRIC: Appropriate mood and affect ASSESSMENT AND PLAN: 86-year-old female who presented to the emergency department this evening after a reported fall at home. Fall -PT OT has evaluated the patient. We will see if she qualifies for shelter. Family is agreeable. Echocardiogram is pending. Formal read on carotid ultrasound is pending however velocities do not seem increased. Suspectvasovagal episode. Left fourth metacarpal neck Fx XR ( Hip/Knee/Hand/Chest/Shoulder) shows fourth metacarpal fracture of the left hand with improved alignment on postreduction imaging. no acute findings are seen involving the right hip/pelvis, right shoulder, chest, left knee or ankle.. Immobilization and pain control Outpatient follow up Elevated CK level Responded well to IV fluids. Type II ME No chest pain/SOB or EKG changes DM blood sugars were reviewed sliding scale insulin and accuchecks. basal insulin Peripheral edema, bilateral foot drop Appreciate neurology recommendations Exam Physical Exam Vital Signs: Temp Pulse Resp BP Pulse Ox O2 Del Method 97.3 F L 64 20 105/66 97 Room Air 09/23/22 15:10 09/23/22 15:10 09/23/22 15:10 09/23/22 15:10 09/23/22 15:10 09/23/22 15:10 Objective Lab Results 09/22/22 16:30 09/22/22 16:30 Microbiology Results Microbiology 09/22/22 16:20 Urine - Richardson Catheter Urine Culture - Preliminary Providencia rettgeri Meds Allergies and Active Meds Allergies acetaminophen [From [facility]son] Allergy (Verified 09/20/22 02:12) Unknown Reaction codeine Allergy (Verified 09/20/22 02:12) Hives hydrocodone [From [facility]son] Allergy (Verified 09/20/22 02:12) Unknown Reaction hydroquinone Allergy (Verified 09/20/22 02:12) Unknown Reaction sulfamethoxazole [From Bactrim] Allergy (Verified 09/20/22 02:12) Unknown Reaction trimethoprim [From Bactrim] Allergy (Verified 09/20/22 02:12) Unknown Reaction Active Meds: Active Medications Generic Name Dose Route Start Last Admin Trade Name Rupal PRN Reason Stop Dose Admin Acetaminophen 650 mg 09/22/22 13:09 Acetaminophen 325 Mg Tablet PO 09/22/23 13:08 Q6H PRN Pain Amlodipine Besylate 10 mg 09/20/22 09:00 09/23/22 08:51 Amlodipine 10 Mg Tablet PO 09/20/23 08:59 10 mg DAILY ZION Administration Aspirin 81 mg 09/20/22 09:00 09/23/22 08:51 Aspirin 81 Mg Tablet.Dr PO 09/20/23 08:59 81 mg DAILY ZION Administration Dextrose 0 gm 09/20/22 12:34 Dextrose 20 % In Water 10 Gm/50 Ml Syringe IV-PUSH 09/20/23 12:33 PRN PRN Hypoglycemia Glucose 0 gm 09/20/22 12:34 Dextrose 40% Gel 15 Gm Tube PO 09/20/23 12:33 PRN PRN Hypoglycemia Heparin Sodium (Porcine) 5,000 unit 09/20/22 21:00 09/23/22 08:51 Heparin 5,000 Unit/Ml Vial SUBCUT 09/20/23 20:59 5,000 unit BID [facility] Administration Insulin Aspart 0 units 09/20/22 17:00 09/23/22 12:18 Insulin Aspart 300 Units/3 Ml Insuln.Pen SUBCUT 09/20/23 16:59 Not Given TID.WM.HS [facility] Protocol Insulin Glargine 35 units 09/20/22 09:00 09/23/22 08:52 Insulin Glargine 300 Units/3 Ml Insuln.Pen SUBCUT 09/20/23 08:59 35 units DAILY [facility] Administration Melatonin 5 mg 09/23/22 00:15 09/23/22 01:16 Melatonin 5 Mg Tablet PO 09/23/23 00:14 5 mg QHS [facility] Administration Metoprolol Succinate 25 mg 09/20/22 09:00 09/23/22 08:51 Metoprolol Succinate 25 Mg Tab.Er.24h PO 09/20/23 08:59 25 mg DAILY [facility] Administration Morphine Sulfate 1 mg 09/20/22 12:15 Morphine Sulfate 2 Mg/Ml Vial IV-PUSH Q4H PRN Pain Scale 7 - 10 Ondansetron HCl 4 mg 09/20/22 12:15 Ondansetron 4 Mg/2 Ml Vial IV-PUSH 09/20/23 12:14 Q6H PRN Nausea And Vomiting Oxycodone HCl 5 mg 09/20/22 04:04 09/20/22 07:31 Oxycodone Ir 5 Mg Tablet PO 5 mg Q6HR PRN Administration Pain Scale 4 - 7 Sodium Bicarbonate 1,300 mg 09/20/22 09:00 09/23/22 08:51 Sodium Bicarbonate 650 Mg Tablet PO 09/20/23 08:59 1,300 mg BID ZION Administration Sodium Chloride 0 ml 09/19/22 20:46 Sodium Chloride 0.9 % 10 Ml Syringe IV-PUSH 09/19/23 20:45 PRN PRN Flush Trazodone HCl 50 mg 09/22/22 23:49 Trazodone 50 Mg Tablet PO 09/22/23 23:48 ONCE PRN Insomnia Documented By: Donn Joseph DO 09/23/22 16 06 Signed By: <Electronically signed by Donn Joseph DO> 09/23/22 4198 [facility] Work Phone: Summary Purpose Family History No Family History Records FoundNo Family History Records FoundNo Family History Records FoundNo Family History Records FoundNo Family History Records Found Advance Directives No Advanced Directives Records FoundLatest Code Status on File Code Status Date Activated Date Inactivated Comments DNR Comfort Care Arrest- Do Not Intubate 09/04/2022 4:20 AM Protocol is activate d when the patient experiences cardiac or respiratory arrest. (All necessary treatments and interventions can be initiated prior to arrest.) Documentation of decision pr ocess for this code status: Discussed with patient or surrogate. Thi s is the code status chosen by the patient/surrogate. Full Code 09/04/2022 2:57 AM 09/04/2022 4:20 AM Documentation of decision pr ocess for this code status: Patient and surrogate unable or unavailable to discuss. There is no previous documentation of code status. Defaulting to Full Code Latest Code Status on File Code Status Date Activated Date Inactivated Comments DNR Comfort Care Arrest- Do Not Intubate 09/04/2022 4:20 AM Protocol is activate d when the patient experiences cardiac or respiratory arrest. (All necessary treatments and interventions can be initiated prior to arrest.) Full Code 09/04/2022 2:57 AM 09/04/2022 4:20 AM Latest Code Status on File Code Status Date Activated Date Inactivated Comments DNR Comfort Care Arrest- Do Not Intubate 09/04/2022 4:20 AM 09/05/2022 4:40 PM Protocol is activate d when the patient experiences cardiac or respiratory arrest. (All necessary treatments and interventions can be initiated prior to arrest.) Advance Directive Response Recorded Date/ Time Advance Directives No August 9:09pm Advance Directive Response Recorded Date/ Time Advance Directives No August 10:09pm Reason for Referral Specialty Diagnoses / Procedures Referred By Contac t Referred To Contact Home Health Diagnoses Syncope, unspecified syncope type Juan Starkey MD [address] [place] [address] [facility] Referral ID Status Reason Start Date Expiration Date V isits Requested Visits Authorized [id number] Authorized 09/05/2022 09/05/2023 3 3 Question Answer Are you the patient's PCP? No Will you be following the patient while they are recieving [facility] services No Who will follow patient outside of the hospital setting, be signing the 485 and communicating with homecare? PCP Was the patient seen today for a Home Care adhw-go-bsen evaluation? No What is the qualifying diagnosis for the [facility] Services? syncope Which [facility] services are needed? Physical Therapy, Occupational Therapy Reason for [facility] services? assessment for improvement/stability of adherence to health care plan, assessment for improvements/stability of medical condition, improvement of ADLs, medication teaching/adherence Reason the patient is homebound leaving their residence would require the assistance of another person, pain, weakness, and/or musculoskeletal dysfunction Specialty Diagnoses / Procedures Referred By Contact Referred To Contact Cardiovascular Testing INPATIENT DEPARTMENTS [address] [place] [id number] [facility] CARD NON INVASIVE [address] [place], [place] [id number] Referral ID Status Reason Start Date Expiration Date Visits Re quested Visits Authorized Scheduling Instructions 1. Take your medicines as prescribed by your doctor. (If you take a water pill , do not take it the morning of the test. You may take it when you return home). 2. You may eat meals and drink fluids at your normal times. 3. This test takes approximately one hour. 4. Please call the [facility] at [phone] (BEAT) if you are unable to keep your appointment. Question Answer Clinical Indication for procedure concern worsening heart failure Comments Insert IV access & flush with 3ml of 0.9% sodium chloride PRN to keep patent, if not already present for LV contrast with Definity and/or saline contrast. Please indicate height and weight if it does not appear below. Blood pressure 149/52, pulse 64, temperature 97.6 F (36.4 C), temperature source Oral, resp. rate 18, SpO2 98 %. ACUTE02/23 fall aveolar ridge fracture with traumatic dental extraction teeth 5-9. no* @PROBHOSP@ Chief Complaint and Reason for Visit Chief Complaint Fall Reason for Visit Fall Fracture of fourth metacarpal bone Chief Complaint Fall Reason for Visit Fall Foot drop, bilateral Fracture of fourth metacarpal bone Chief Complaint Fall S62.335A Reason for Visit Fall Foot drop, bilateral Fracture of fourth metacarpal bone Additional Source Comments REASON FOR VISIT (unrecogniz ed section and content) Reason Comments Trauma/complex Medical Situation Specialty Diagnoses / Procedures Referred By Contac t Referred To Contact Emergency Medicine Diagnoses fall aveolar ridge fracture with traumatic dental extraction teeth 5-9. no thinners [employer] [place] [place] [address] Phone: [phone] [employer] [place] [place] [address] Phone: [phone] Referral ID Status Reason Start Date Expiration Date Visits Re quested Visits Authorized [id number] 3 INFORMATION SOURCE (unrecogn ized section and content) DATE CREATED AUTHOR 05/29/[address] [facility] DATE CREATED AUTHOR AUTHOR'S ORGANIZ ATION 10/05/2022 [facility] DATE CREATED AUTHOR AUTHOR'S ORGANIZ ATION 12/05/2022 [facility] DATE CREATED AUTHOR AUTHOR'S ORGANIZ ATION 01/18/2023 [facility] DATE CREATED AUTHOR AUTHOR'S ORGANIZ ATION [address] 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 Relationship Specialty Start Date End Date Yoko Helms MD [address] [place] [address] PCP - General Family Medicine 09/03/22 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 Relationship Specialty Start Date End Date Yoko Helms MD [address] [place] [address] PCP - General Family Medicine 09/05/22 Team Status: Active Member Role Status Dates Brad Harper , DO Emergency Provider Active Yoko Helms MD Primary Care Provider Active Donn Joseph , DO Admit Provider, Attending Provider Active Team Status: Active Member Role Status Dates Yoko Helms MD Primary Care Provider Active Team Status: Inactive Member Role Status Dates Brad Harper , DO Emergency Provider Active Yoko Helms MD Primary Care Provider Active Donn Joseph , DO Admit Provider, Attending Provider Active Maria C Pelayo Other Provider Active Petty Crandall , DO Other Provider Active Андрей Marsh MD Other Provider Active Oscar Ward , DO Other Provider Active Jodi Swift , ANP-BC Other Provider Active Gigi Hernandez , DO Other Provider Active Ana You APRN Other Provider Active Maria Atkinson PLATE DEVELOPER-C Other Provider Active Team Status: Inactive Member Role Status Dates Yoko Helms MD Primary Care Provider Active Asad Pollard , DO Attending Provider Active Scheduled Active and Recently Administ ered Medications (unrecognized section and content) Medication Order 09/03/2022 09/04/2022 09/05/2022 aspirin EC tablet 81 mg, Oral, DAILY, First dose on Wed09/04/22 at 0900, Until Discontinued 0828 (Given - Provider: Macario Pérez, ETELVINA) 1200 (Due - Provider: Randy Tsang, RN) fentaNYL Citrate PF SOSY 25 mcg (COMPLETED) 25 mcg, Intravenous Push, STAT, 1 dose, On Wed09/03/22 at 2217 2231 (Given - Provider: Harpal Bruno) furosemide (LASIX) 10 mg/mL injection (COMPLETED) 20 mg, Intravenous Push, ONCE, 1 dose, On Wed09/04/22 at 0150 0243 (Given - Provider: Nery Schneider, RN) insulin glargine (LANTUS SOLOSTAR/BASAGLAR KWIKPEN) 100 UNIT/ML PEN injection 20 Units, Subcutaneous, AT BEDTIME, First dose on Wed09/04/22 at 2200, Until Discontinued 2200 (Hold/Not Given - Provider: Xenia Barron RN - Reason: Missed Dose) 2200 (Due) insulin lispro (HumaLOG) 100 UNIT/ML injection 2-9 Units, Subcutaneous, 3 TIMES DAILY BEFORE MEALS, First dose on Wed09/04/22 at 0800, Until Discontinued 0829 (Given - Provider: Macario Pérez RN)1201 (Given - Provider: Macario Pérez RN)1841 (Given - Provider: Dalila Levy RN) 0830 (Given - Provider: Randy Tsang, RN)1200 (Due)1700 (Due) iohexol (OMNIPAQUE) 350 MG/ML injection (COMPLETED) 100 mL, Intravenous Push, Once at Radiology exam, 1 dose, Starting on Wed09/03/22 at 2144, Until Wed09/03/22 at 2144, Imaging Protocol Orders 2144 (Bolus given - Provider: Luz Reeder) lactated ringers iv bolus (COMPLETED) 500 mL, at 999 mL/hr, Intravenous, FLUID BOLUS, 1 dose, On Wed09/04/22 at 0410 0412 (IV New Bag - Provider: Nery Schneider, RN) lactated ringers iv bolus (COMPLETED) 500 mL, at 125 mL/hr, Intravenous, FLUID BOLUS, 1 dose, On Wed09/05/22 at 1012 1016 (IV New Bag - Provider: Randy Tsang RN)1201 (IV Stop - Provider: Randy Tsang RN) losartan (COZAAR) tablet 12.5 mg, Oral, DAILY, First dose on Wed09/04/22 at 0900, Until Discontinued 0829 (Given - Provider: Macario Pérez RN) 1200 (Due - Provider: Randy Tsang RN) PRN Medication Order 09/03/2022 09/04/2022 09/05/2022 acetaminophen (TYLENOL) tablet 650 mg, Oral, EVERY 4 HOURS PRN, Starting on Wed09/04/22 at 0405, Until Discontinued, Moderate Pain (pain score 4,5,6), Mild Pain (pain score 1,2,3), Severe Pain (pain score 7,8,9,10) dextrose (GLUTOSE) 40 % oral gel(Linked Group 1) 15 g of glucose, Buccal, PRN, Starting on Wed09/04/22 at 0405, Until Discontinued, blood glucose between 50 - 69 mg/dL, and with no IV access, alert and able to swallow. dextrose (GLUTOSE) 40 % oral gel(Linked Group 1) 30 g of glucose, Buccal, PRN, Starting on Wed09/04/22 at 0405, Until Discontinued, blood glucose of 49mg/dL or less, and with no IV access, alert and able to swallow. dextrose 10 % iv infusion(Linked Group 1) 125 mL, Intravenous, at 999 mL/hr, PRN, Starting on Wed09/04/22 at 0405, Until Discontinued, For blood glucose less than 70 mg/dL, with IV access and with loss of consciousness or unable to swallow or NPO glucagon (GLUCAGEN) 1 MG injection(Linked Group 1) 1 mg, Subcutaneous, PRN, Starting on Wed09/04/22 at 0405, Until Discontinued, For blood glucose less than 70 mg/dL and with no IV access with loss of consciousness or alert and unable to swallow. Linked Groups Order Group 1: dextrose 10 % iv infusionJump to med 125 mL, Intravenous, at 999 mL/hr, PRN, Starting on Wed09/04/22 at 0405, Until Discontinued, For blood glucose less than 70 mg/dL, with IV access and with loss of consciousness or unable to swallow or NPO Or glucagon (GLUCAGEN) 1 MG injectionJump to med 1 mg, Subcutaneous, PRN, Starting on Wed09/04/22 at 0405, Until Discontinued, For blood glucose less than 70 mg/dL and with no IV access with loss of consciousness or alert and unable to swallow. Or dextrose (GLUTOSE) 40 % oral gelJump to med 15 g of glucose, Buccal, PRN, Starting on Wed09/04/22 at 0405, Until Discontinued, blood glucose between 50 - 69 mg/dL, and with no IV access, alert and able to swallow. Or dextrose (GLUTOSE) 40 % oral gelJump to med 30 g of glucose, Buccal, PRN, Starting on Wed09/04/22 at 0405, Until Discontinued, blood glucose of 49mg/dL or less, and with no IV access, alert and able to swallow. Goals (unrecognized section and content) Goals may be documented in a n alternate section FOR RECORDS PERTAINING TO PATIENTS WHO ARE OR HAVE BEEN ENROLLED IN A CHEMICAL DEPENDENCY/SUBSTANCEABUSE PROGRAM, SOME INFORMATION MAY BE OMITTED. This clinical summary was aggregated from multiple sources. Caution should be exercised in using it in the provision of clinical care. This summary normalizes information from multiple sources, and as a consequence, information in this document may materially change the coding, format and clinical context of patient data. In addition, data may be omitted in some cases. CLINICAL DECISIONS SHOULD BE BASED ON THE PRIMARY CLINICAL RECORDS. [employer] provides no warranty or guarantee of the accuracy or completeness of information in this document.
[2023-12-01 07:34] LABS: Anion Gap 15.5; BUN Creatinine Ratio 23.4; Carbon Dioxide 25.7 mmol/L (21.0-32.0); Chloride 101 mmol/L (98-107); Estimated GFR (African America 30 (>=60); Estimated GFR (Non-African Ame 25 (>=60); Glucose 80 mg/dL (74-106); Potassium 4.2 mmol/L (3.5-5.1); Sodium 138 mmol/L (136-145)
== END 2023-12-01 07:05 | disposition home or self-care (01) ==
LOC: LAB 07:06
PROVIDERS: PCP Family Medicine; Visit Provider Internal Medicine Interventional Cardiology
DX: I50.32 Chronic diastolic (congestive) heart failure (principal)
CPT/HCPCS: 36415; 80048

== ENCOUNTER 2024-01-04 16:03 | Outpatient (OUT) | payer MEDICARE, SELFPAY ==
[2024-01-04 16:51] LABS: Basophils Absolute Auto 0.1 10^3/uL (0.0-0.1); Basophils Percent Auto 1.1 % (0.2-2.0); Eosinophils Absolute Auto 0.3 10^3/uL (0.0-0.7); Eosinophils Percent Auto 3.8 % (0.9-7.0); Hematocrit 33.4 % (36.0-48.0); Hemoglobin 10.5 g/dL (12.0-16.0); Immature Granulocytes Abs Auto 0.02 10^3/uL (0.00-0.03); Immature Granulocytes Pct Auto 0.3 % (0.0-0.5); Lymphocytes Absolute Auto 1.3 10^3/uL (1.2-3.8); Lymphocytes Percent Auto 17.7 % (20.5-60.0); Mean Corpuscular HGB Conc 31.4 g/dL (29.9-35.2); Mean Corpuscular Hemoglobin 28.5 pg (26.7-34.0); Mean Corpuscular Volume 90.8 fL (81.0-99.0); Monocytes Absolute Auto 0.7 10^3/uL (0.3-0.8); Monocytes Percent Auto 8.8 % (1.7-12.0); Neutrophils Absolute Auto 5.1 10^3/uL (1.4-6.5); Neutrophils Percent Auto 68.3 % (43.0-75.0); Platelet Count 245 10^3/uL (150-450); Red Blood Count 3.68 10^6/uL (4.20-5.40); Red Cell Distribution Width 15.3 % (11.0-15.0); White Blood Count 7.5 10^3/uL (4.0-11.0)
[2024-01-04 17:05] LABS: Anion Gap 13.9; BUN Creatinine Ratio 27.9; Calcium 9.2 mg/dL (8.5-10.1); Carbon Dioxide 27.3 mmol/L (21.0-32.0); Chloride 102 mmol/L (98-107); Estimated GFR (African America 28 (>=60); Estimated GFR (Non-African Ame 23 (>=60); Glucose 116 mg/dL (74-106); Potassium 4.2 mmol/L (3.5-5.1); Sodium 139 mmol/L (136-145)
[2024-01-04 17:10] LABS: Estimated Average Glucose 120 mg/dL; Glycohemoglobin A1C 5.8 % (4.5-6.2)
== END 2024-01-04 16:04 | disposition home or self-care (01) ==
LOC: LAB 16:05
PROVIDERS: PCP Family Medicine; Visit Provider Family Medicine
DX: E11.22 Type 2 diabetes mellitus with diabetic chronic kidney disease (principal); N18.32 Chronic kidney disease, stage 3b; I12.9 Hypertensive chronic kidney disease with stage 1 through stage 4 chronic kidney disease, or unspecified chronic kidney disease
CPT/HCPCS: 36415; 80048; 83036; 85025

== ENCOUNTER 2024-02-25 13:37 | Outpatient (OUT) | payer MEDICARE, SELFPAY ==
--- NOTE | 2024-02-25 14:00 | CA_ITS ---
Patient Name: JUDIE JOHNSON MR#: [id number] : 1935 Exam Date: 02/25/2024 Ordering Doctor: DR TANISHA ARELLANO M.D. ECHOCARDIOGRAM REPORT PROCEDURE: CA ECHO DOPPLER COMPLETE INDICATIONS: Pulmonary hypertension, CABG, diabetes, hypertension COMPARISON: None. DESCRIPTION: COMPLETE ECHOCARDIOGRAM Real-time transthoracic echocardiography with 2D, M-mode, spectral and color flow Doppler performed. QUALITY: Technical quality was good. 64 , 140#, BP 126/68 LEFT VENTRICLE: Normal chamber size. Thickened septal wall. Normal systolic function. LV EF: Normal left ventricular ejection fraction, (65%). DIASTOLIC: Grade III diastolic dysfunction. ATRIAL SEPTUM: Visually appears intact. LEFT ATRIUM: Severe dilatation. RIGHT ATRIUM: Severe dilatation. RIGHT VENTRICLE: Moderate dilatation. Normal systolic function. TRICUSPID VALVE: Normal mobility and thickness. No stenosis with moderate regurgitation. Doppler studies reveal severely (>60) elevated right sided pressures. RVSP 93 mmHg MITRAL VALVE: Severely thickened with decreased mobility. Severe mitral valve stenosis. Severe mitral annular calcification. Mitral valve area by pressure half-time 0.9 cm?, mean gradient 13 mmHg at a heart rate of 51 bpm. Moderate mitral regurgitation. AORTIC VALVE: TAVR valve appears well seated in the aortic position with abnormal Doppler flows. Mean gradient 18 mmHg, DVI 0.32. No aortic regurgitation. AORTIC ROOT: Normal diameter and appearance. PULMONIC VALVE: Normal thickness and mobility. No stenosis. Moderate regurgitation. PERICARDIUM: No evidence of pericardial effusion. IVC: IVC is dilated (2.3 cm) with no collapse. PLEURA: CONCLUSION: 1. Normal left ventricular size and systolic function. LVEF is 65%. 2. Moderately dilated right ventricle with normal systolic function. 3. Severe biatrial dilatation. 4. Grade 3 diastolic dysfunction. 5. 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 6. Severe calcific mitral valve stenosis with moderate regurgitation. 7. Moderate tricuspid regurgitation. 8. Severely elevated right-sided pressures. RVSP is 93 mmHg. Adult Echocardiography Procedure Report Left Ventricle LVEDD (3.7 - 5.6 cm): 4.16 cm LVESD (2.2 - 4.0 cm): 3.22 cm LVIVS thickness (0.6 - 1.2 cm): 1.43 cm LVPW thickness (0.5 - 1.0 cm): 0.91 cm LVOT Max Gradient: 3.06 mm[Hg] LVOT Area (cm2): 0.87 m/s Peak Velocity (LVOT): 0.87 m/s Mean Velocity (LVOT): 0.58 m/s LVOT Diameter 1.66 cm Left Atrium LA Volume Index (2D A2C): 81.05 ml/m2 Left Atrium Systolic Dimension: 4.96 cm Mitral Valve MV E to A Ratio: 1.46 Mitral Valve A-Wave Peak Velocity: 1.55 m/s Mitral Valve E-Wave Peak Velocity: 2.26 m/s Right Ventricle RV Internal Diastolic Dimension: 5.50 cm Aorta AO Root Diam: 2.54 cm Aortic Valve AoV Area (Peak Christian): 0.69 cm2, 0.77 cm2 AoV Area (VTI): 0.72 cm2, 0.84 cm2 Peak Velocity(Antegrade Flow): 2.47 m/s, 2.76 m/s Peak Gradient(Antegrade Flow): 24.40 mm[Hg], 30.37 mm[Hg] Mean Velocity(Antegrade Flow): 1.73 m/s, 2.02 m/s Mean Gradient(Antegrade Flow): 14.04 mm[Hg], 18.28 mm[Hg] Velocity Time Integral: 57.67 cm, 66.76 cm Tricuspid Valve Peak Velocity (Regurgitant Flow): 3.08 m/s, 3.50 m/s, 4.43 m/s Pulmonic Valve Peak Velocity: 0.81 m/s Peak Gradient: 2.61 mm[Hg] Right Atrium Right Atrium Systolic Pressure: 66.27 ml, 66.27 ml Dictated by: Tanisha Arellano M.D. on 02/25/2024 at 15:39 Approved by: Tanisha Arellano M.D. on 02/25/2024 at 15:50
== END 2024-02-25 13:38 | disposition home or self-care (01) ==
LOC: CARD 13:38
PROVIDERS: PCP Family Medicine; Visit Provider Internal Medicine Interventional Cardiology
DX: I27.20 Pulmonary hypertension, unspecified (principal); I34.2 Nonrheumatic mitral (valve) stenosis; I36.1 Nonrheumatic tricuspid (valve) insufficiency; I34.0 Nonrheumatic mitral (valve) insufficiency
CPT/HCPCS: 93306

== ENCOUNTER 2024-04-05 10:19 | Outpatient (OUT) | payer MEDICARE, SELFPAY ==
[2024-04-05 11:07] LABS: Anion Gap 15.2; BUN Creatinine Ratio 32.7; Calcium 8.6 mg/dL (8.5-10.1); Carbon Dioxide 25.4 mmol/L (21.0-32.0); Chloride 102 mmol/L (98-107); Estimated GFR (African America 29 (>=60); Estimated GFR (Non-African Ame 24 (>=60); Glucose 177 mg/dL (74-106); Potassium 4.6 mmol/L (3.5-5.1); Sodium 138 mmol/L (136-145)
== END 2024-04-05 10:20 | disposition home or self-care (01) ==
LOC: LAB 10:20
PROVIDERS: PCP Family Medicine; Visit Provider Internal Medicine Interventional Cardiology
DX: I27.20 Pulmonary hypertension, unspecified (principal); I34.2 Nonrheumatic mitral (valve) stenosis; I50.32 Chronic diastolic (congestive) heart failure
CPT/HCPCS: 36415; 80048

== ENCOUNTER 2024-07-17 08:20 | Outpatient (OUT) | payer MEDICARE, SELFPAY ==
--- OUTSIDE RECORDS SUMMARY | 2024-07-17 08:40 | XMS_ITS | CCD ---
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 Name Role Phone Flower Garza Unavailable JAZMINE TREVINO Admitting Unavailable YOKO HELMS Referring Unavailable HELMS, YOKO Primary Care Unavailable JIGNESH, JUAN MANUEL Attending Unavailable SCOOTER, YOKO Primary Care Unavailable SCOOTER, YOKO Referring Unavailable MOUKARBEL, TANISHA V Admitting Unavailable MOUKARBEL, TANISHA Garcia Attending Unavailable SCOOTER, YOKO Primary Care Unavailable DAVEY CARRASCO Admitting Unavailable DAVEY CARRASCO Attending Unavailable SCOOTER, YOKO Referring Unavailable HELMS, YOKO Primary Care Unavailable SCOOTER, YOKO Referring Unavailable MOUKARBEL, TANISHA V Admitting Unavailable MOUKARBEL, TANISHA Garcia Attending Unavailable SCOOTER, YOKO Primary Care Unavailable SCOOTER, YOKO Referring Unavailable MOUKARBEL, TANISHA V Admitting Unavailable MOUKARBEL, TANISHA Garcia Attending Unavailable SCOOTER, YOKO Primary Care Unavailable DAVEY CARRASCO Admitting Unavailable DAVEY CARRASCO Attending Unavailable SCOOTER, YOKO Referring Unavailable Yoko Helms MD Primary Care Provider Yoko Helms MD Primary Care Provider [phone] DO Brad Harper Emergency Provider [phone] MD Yoko Helms E Primary Care Provider [phone] DO Donn Joseph Admit Provider DO Donn Joseph Attending Provider [phone] Maria C Pelayo Other Provider Unavailable DO Petty Crandall Other Provider MD Андрей Marsh Other Provider DO Oscar Ward Other Provider Jamison, ANP- Jodi Other Provider DO Gigi Hernandez Other [...] CONSULT, IP DENTISTRY ADULT Consulting Unav ailable DODSHEMAR, NURYS Referring Unavailable HELMS, YOKO Primary Care Unavailable ATASSVa, BROKO Admitting Unavailable STARKEYJUAN EL Attending Unavailable REQUEST, IP PHYSICAL THERAPY SERVICE Consulting Unavailable REQUEST, IP OCCUPATIONAL THERAPY SERVICE Consult ing Unavailable HELMS, YOKO Primary Care Unavailable OSIEL, KAVEH Referring Unavailable PROVIDER, UNKNOWN Attending Unavailable PROVIDER, UNKNOWN Admitting Unavailable Helms, Yoko Unavailable Asad Pollard Unavailable DO Brad Harper Emergency Provider Unavailab MD Yoko Beth Primary Care Provider DO Donn Joseph Admit Provider [phone] DO Donn Joseph Attending Provider Maria C Pelayo Other Provider Unavailable DO Petty Crandall Other Provider MD Андрей Marsh Other Provider DO Oscar Ward Other Provider YARY Swift- Jodi Other Provider DO Gigi Hernandez Other Provider HEMANT You Other Provider MILES Atkinson Other Provider [phone] DO Asad Pollard Attending Provider Asad Pollard Admitting Unavailable Asad Pollard Attending Unavailable Yoko Helms Primary Care Unavailable Asad Pollard Admitting Unavailable Asad Pollard Attending Unavailable HelmsYoko E Primary Care Unavailable Helms, Yoko E Primary Care Unavailable Frikimber, Donn Admitting Unavailable Frikimber, Donn Attending Unavailable SciMaria C conway Consulting Unavailable Petty Crandall Consulting Unavailable [place], Андрей Consulting Unavailable Sylvia, Oscar Escobeod Consulting Unavailkvng Swift, Jodi Consulting Unavailable Gigi Hernandez Consulting Unavailable GillAna hebert Consulting Unavailable Maria Atkinson Consulting Unavailable MISC, DR MCDONALD Attending Unavailable [...] MOUKARBEL, DR GARAY Admitting Unavailable NADERER, DR MARELY Valdivia Admitting Unavailable HELMS, DR YOKO Ceron Primary Care Unavailable REINECK, DR JOHANNY Herbert Consulting Unavailabl e JOSELYN, DR MARELY Valdivia Attending Unavailable WEST, DR JOBY Garcia Consulting Unavailable NADERER, DR MARELY Valdivia Consulting Unavailable CRISTARANDY Consulting Unavailable KLIPPERJOBY Consulting Unavailable JAY .LISSA Consulting Unavailable HAY ., DR LINN Attending Unavailable HAY ., DR LINN Admitting Unavailable HELMS, DR YOKO Ceron Primary Care Unavailable HAY ., DR LINN Consulting Unavailable АНДРЕЙ LOCK Consulting Unavailable BLAS MAOSN Consulting Unavailable INDIRA, CLIFFORD Consulting Unavailable MILTON, DONN Consulting Unavailable CODY RAMOS Attending Unavailable KARUNA Munson, CODY Admitting Unavailable ZIEBMIKE, DR АНДРЕЙ Roe Consulting Unavailable HELMS, DR YOKO Ceron Primary Care Unavailable CODY RAMOS Consulting Unavailable ELTAHAWAugust, DR OTERO Attending Unavailable ELTAHAWY, DR OTERO [...] GARAY Admitting Unavailable MOUKARBEL, TANISHA Attending Unavailable MOUKARBEL, TANISHA Attending Unavailable MOUKARBEL, TANISHA Attending Unavailable MOUKARBEL, TANISHA Admitting Unavailable BEAN, PRAVEENA Attending Unavailable BEAN, PRAVEENA Attending Unavailable Allergies Allergy Classification Reported Allergen(s) Allergy Type Date of Onset Reaction(s) Facility (18 sources) Acetaminophen / HYDROcodone Drug Allergy Unknown [employer] Other (20 sources) hydroquinone; Translations: [HYDROQUINONE] Drug Allergy Unknown, Unknown Reaction [facility] (20 sources) Sulfamethoxazole / Trimethoprim Drug Allergy [employer] Other (1 source) Acetaminophen / HYDROcodone Drug Allergy [facility] Repository (9 sources) Codeine; Translations: [CODEINE] Drug Allergy [facility] Repository (5 sources) Hydroxychloroquine; Translations: [HYDROXYCHLOROQUINE] Drug Allergy [facility] Repository (2 sources) Sulfamethoxazole / Trimethoprim Drug Allergy [facility] Repository (6 sources) Acetaminophen / HYDROcodone; Translations: [HYDROCODONE-ACETAMIN OPHEN] Drug Allergy [facility] (4 sources) Codeine Drug Allergy [facility] Work Phone: (10 sources) HYDROcodone; Translations: [HYDROCODONE] Drug Allergy Hives [facility] (4 sources) hydroquinone Drug Allergy Rash [facility] (10 sources) Hydroxychloroquine Drug Allergy Nausea [facility] (6 sources) Acetaminophen; Translations: [acetaminophen] Drug Allergy Unknown Reaction [facility] (6 sources) Sulfamethoxazole; Translations: [sulfamethoxazole] Drug Allergy Unknown Reaction [facility] (6 sources) Trimethoprim; Translations: [trimethoprim] Drug Allergy Unknown Reaction [facility] (1 source) SULFAMETHOXAZOLE W-TRIMETHOPRIM; Translations: [SULFAMETHOXAZOLE W-TRIMETHOPRIM] Propensity to adverse reactions to drug (disorder) [facility] Repository (1 source) Codeine Drug Allergy 023 [facility] Repository (1 source) HYDROcodone Drug Allergy 023 [facility] Repository (1 source) hydroquinone Drug Allergy [facility] Repository (1 source) Acetaminophen Drug Allergy [facility] Repository (1 source) Acetaminophen / HYDROcodone Drug Allergy [facility] Repository (1 source) Carbidopa Drug Allergy [facility] Repository (1 source) HYDROcodone Drug Allergy [facility] Repository (2 sources) Sulfamethoxazole / Trimethoprim; Translations: [SULFAMETHOXAZOLE-TRI METHOPRIM] Drug Allergy [facility] Repository (6 sources) Codeine Drug Allergy Unknown [employer] Other (6 sources) Lortab *ANALGESICS - OPIOID* Propensity to adverse reactions Unknown [employer] Other Medications Current Medications Medication Drug Class(es) [...] aspirin 81 mg delayed release oral tablet (10 sources) Platelet Aggregation Inhibitor, Nonsteroidal Anti-inflammatory Drug [...] Active insulin detemir 100 unt/ml injectable solution (14 sources) Insulin Analog Start: 01-04-2024 inject 30 [IU] by subcutaneous injection once daily Insulin Detemir U-100 (Levemir U-100 Insulin) 100 unit/mL solution Active 30 UNIT SUBCUT Daily January 04, 2024 3:46pm Start: 08-23-2022 End: 01-04-2024 inject 35 [IU] by subcutaneous injection once daily Insulin Detemir U-100 (Levemir U-100 Insulin) 100 unit/mL solution Discontinued 35 UNIT SUBCUT Daily September 19, 2022 1:00am January 04, 2024 3:51pm inject 35 [IU] by quinones bcutaneous injection once daily Levemir 100 UNIT/ML INJECT 35 UNITS SUBCUTANEOUSLY EVERY DAY for 30 Active 3 ml insulin glargine 100 unt/ml pen injector (13 sources) Insulin Analog Start: 03-10-2024 End: 03-10-2024 Insulin Glargine (Basaglar Kwikpen U-100 Insulin) 100 unit/mL (3 mL) insulin pen Active 35 UNIT SUBCUT Daily March 10, 2024 8:31am Start: 01-26-2023 Basaglar KwikP en 100 UNIT/ML [...] 650 mg oral tablet (20 sources) Start: 12-13-19 take 1 tablet by mouth twice daily Sodium Bicarbonate Active 0 .ROUTE .COMPLEX 180 December 13, 2023 4:38pm TAKE 1 TABLET BY MOUTH TWICE A DAY Start: 09-19-2022 End: 12-13-2023 take 1300 mg by mouth twice daily Sodium Bicarbonate Discontinued 1300 MG PO Twice daily September 19, 2022 1:00am December 13, 2023 4:38pm Start: 07-20-2022 take 2 tablets by mo [facility] twice daily sodium bicarbonate 650 MG tablet Take 1,300 mg by mouth 2 times daily. 0 07/20/2022 Active take 1 tablet by chap[place] th twice daily Sodium Bicarbonate 650 MG TAKE [...] 09/23/2021 Active take 1 tablet by chapincito th every twenty-four hours Losartan Potassium 25 MG 1 tablet Orally Once a day Active Problems Active Problems Problem Classification Problem Date Documented Da te Episodic/Chronic Acquired foot deformities (8 sources) Foot-drop; Translations: [Foot drop, right foot] Onset: 09-20-2022 09-23-2022 Episodic Acute myocardial infarction (20 sources) Myocardial infarction; Translations: [Myocardial infarction type 2] Onset: 01-29-2023 Chronic Cardiac dysrhythmias (6 sources) Longstanding persistent atrial fibrillation; Translations: [Longstanding persistent atrial fibrillation] Chronic Cardiac dysrhythmias (1 source) Bradycardia; Translations: [Bradycardia, unspecified] Episodic Chronic kidney disease (10 sources) Chronic kidney disease stage 3; Translations: [...] Coronary atherosclerosis; Translations: [Atherosclerotic heart disease of [place] coronary artery without angina pectoris] Onset: [...] Onset: 10-07-2022 Chronic Diabetes mellitus without complication (11 sources) Diabetes mellitus; Translations: [Type 2 diabetes mellitus without complications] Onset: 02-01-2019 09-04-2022 Chronic E Codes: Fall (10 sources) Fall; Translations: [Unspecified fall, initial encounter] Onset: 09-06-2022 Episodic Essential hypertension (17 sources) Hypertensive disorder; Translations: [Essential (primary) hypertension] Onset: 02-01-2019 09-04-2022 Chronic Fracture of upper limb (20 sources) Other nondisplaced fracture of upper end of left humerus, subsequent encounter for fracture with routine healing; Translations: [Other displaced fracture of upper end of left humerus, subsequent encounter for fracture with nonunion] Onset: 06-10-2021 Resolved: 04-21-2022 Episodic Heart valve disorders (20 sources) History of [...] sources) Long-term current use of insulin; 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] Episodic Other ear [...] PROCEDURE STATUS] Onset: 10-07-2022 Episodic E Codes: Unspecified (1 source) Nosocomial condition; Translations: [NOSOCOMIAL CONDITION] Onset: 10-07-2022 Episodic Fluid and electrolyte disorders (5 sources) Dehydration; Translations: [Hyperkalemia] Onset: 05-18-2022 Episodic Immunizations and screening for infectious disease (1 source) Encounter for immunization; Translations: [ENCOUNTER FOR IMMUNIZATION] Onset: 09-06-2022 Episodic Malaise and fatigue (1 source) Weakness; Translations: [WEAKNESS] Onset: 10-07-2022 Episodic Other aftercare (2 sources) 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; Translations: [INTERMEDIATE CURRENT USE OF INSULIN] Onset: 10-07-2022 Episodic Other aftercare (1 source) senior care (current) use of aspirin; Translations: [INTERMEDIATE CURRENT USE OF ASPIRIN] Onset: 10-07-2022 Episodic Other aftercare (1 source) Other fuel technician (current) drug therapy; Translations: [OTH PRESIDING JUDGE CURRENT DRUG THERAPY] Onset: 10-07-2022 Episodic Other [...] (1 source) Other specified postprocedural states; Translations: [OTH SPECIFIED POSTPROCEDURAL STATES] Onset: 05-22-2022 Episodic Skull [...] Test Name Value Interpretation Reference Range Facility Estimated glomerular filtrat ion rate (GFR) non- Americanon 04-05-2024 GFR/1.73 sq M.predicted among non-blacks MDRD (S/P/Bld) [Vol rate/Area] 24 mL/min/{1.73_m2} Low >=60 [facility] Laboratory - Chemistry and C hemistry - challengeon 04-05-2024 Calcium [Mass/Vol] 8.6 mg/dL 8.5-10.1 [facility] Chloride [Moles/Vol] 102 mmol/L 98-107 [facility] CO2 [Moles/Vol] 25.4 mmol/L 21.0-32.[address] [facility] Creatinine [Mass/Vol] 1.96 mg/dL High 0.55-1.02 [facility] GFR/1.73 sq M.predicted MDRD (S/P/Bld) [Vol rate/Area] 29 mL/min/{1.73_m2} Low >=60 [facility] Glucose [Mass/Vol] 177 mg/dL High 74-106 [facility] Potassium [Moles/Vol] 4.6 mmol/L 3.5-5.1 [facility] Sodium [Moles/Vol] 138 mmol/L 136-145 [facility] Urea nitrogen [Mass/Vol] 64.0 mg/dL High 7.0-18.0 [facility] Urea nitrogen/Creatinine [Mass ratio] 32.7 mg/mg [facility] Serum or plasma anion gap de terminationon 04-05-2024 Anion gap [Moles/Vol] 15.2 mmol/L [facility] Office Visiton 03-03-2024 Follow-up visit [id number] Eliz Hewitt 1935 F Date Provider Department Center 03/03/2024 Rona-TANISHA ARELLANO ANGEL [facility] Family History Family history unknown: Yes Level of Service:89065 [place] OFFICE/OUTPATIENT ESTABLISHED MOD MDM 30 MIN Normal [facility] Estimated glomerular filtrat ion rate (GFR) non- Americanon 12-01-2023 GFR/1.73 sq M.predicted among non-blacks MDRD (S/P/Bld) [Vol rate/Area] 25 mL/min/{1.73_m2} >=60 [facility] Laboratory - Chemistry and C hemistry - challengeon 12-01-2023 Calcium [Mass/Vol] 9.0 mg/dL 8.5-10.1 [facility] Chloride [Moles/Vol] 101 mmol/L 98-107 [facility] CO2 [Moles/Vol] 25.7 mmol/L 21.0-32.[address] [facility] Creatinine [Mass/Vol] 1.92 mg/dL 0.55-1.02 [facility] GFR/1.73 sq M.predicted MDRD (S/P/Bld) [Vol rate/Area] 30 mL/min/{1.73_m2} >=60 [facility] Glucose [Mass/Vol] 80 mg/dL 74-106 [facility] Potassium [Moles/Vol] 4.2 mmol/L 3.5-5.1 [facility] Sodium [Moles/Vol] 138 mmol/L 136-145 [facility] Urea nitrogen [Mass/Vol] 45.0 mg/dL 7.0-18.0 [facility] Urea nitrogen/Creatinine [Mass ratio] 23.4 mg/mg [facility] Serum or plasma anion gap de terminationon 12-01-2023 Anion gap [Moles/Vol] 15.5 mmol/L [facility] Office Visiton 11-01-2023 Follow-up visit [id number] Eliz Hewitt 1935 F Date Provider Department Center 11/01/2023 Rona-TANISHA ARELLANO ANGEL [facility] Family History Family history unknown: Yes Level of Service:05753 [place] OFFICE/OUTPATIENT ESTABLISHED MOD MDM 30 MIN [facility] Office Visiton 08-11-2023 Follow-up visit [id number] Eliz Hewitt 1935 F Date Provider Department Center 08/11/2023 120-PRAVEENA DEL ANGEL ANGEL [facility] Family History Family history unknown: Yes Level of Service:86268 [place] OFFICE/OUTPATIENT ESTABLISHED MOD MDM 30-39 MIN Reason for Visit and Comments: Follow-up [[id number]] [facility] 36on 07-21-2023 37 Patient's daughter in law [...] make another medication change? Please advise. Thanks. [facility] HPon 07-15-2023 HP History Of Present Illness [...] C-E Magna per (more content not included)... [facility] NURSNOTEon 07-15-[address] Pantoja patient can discharge at 12 noon [facility] NURSNOTE Discharge instructions covered with patient. Denies any questions or concerns. After visit summary provided with new script for Sildelafil and follow up appt. [facility] Orders Onlyon 07-08-2023 Orders Only [id number] Eliz Hewitt 1935 F Date Provider Department Center 07/08/2023 ALICIA HARDY [facility] Family History Family history unknown: Yes Normal [facility] 29on 06-07-2023 29 Addended by: PRAVEENA DEL ANGEL on: 06/09/2023 09:04 AM Modules accepted: Orders, Level of Service Normal [facility] Office Visiton 06-07-2023 Follow-up visit [id number] Eliz Hewitt 1935 F Date Provider Department Center 06/07/2023 120-PRAVEENA DEL ANGEL [place] Family History Family history unknown: Yes Level of Service:50540 [place] OFFICE/OUTPATIENT ESTABLISHED MOD MDM 30-39 MIN Normal [facility] Documentationon 06-04-2023 Documentation [id number] Eliz Hewitt 1935 F Date Provider Department Center 06/04/20[address] [facility] Family History Family history unknown: Yes Normal [facility] Orders Onlyon 06-04-2023 Orders Only [id number] Eliz Hewitt 1935 F Date Provider Department Center 06/04/2023 PRAVEENA [address]ESS [facility] [address] Family History Family history unknown: Yes Normal [facility] ECHOCARDIO M/2D COMPLETEon 0 01-14-2023 ECHOCARDIO M/2D COMPLETE Patient: ELIZ HEWITT Exam Date: 01/14/2023 : 1935 Gender:F Ordering : DR TANISHA ARELLANO M.D. Admission #: [id number] Family : DR YOKO HELMS M.D. Order #: [id number] CLICK HERE TO VIEW EXAM ECHOCARDIOGRAM REPORT [...] Brower M.D. on 01/14/2023 at 15:23 Normal [facility] XR hand LT min 3V*on 023 XR hand LT min 3V* [facility] [place] [address] XRay Report Signed Patient: Eliz Hewitt MR#: [id number] : 1935 Acct:[id number] Age/Sex: 87 / F ADM Date: 11/30/22 Loc: [facility] Room: Type: [facility] Attending Dr: Asad Pollard DO Copies to: [...] Vickers Jr., D.OArpit11/30/2022 4:04 PM Dictation Location: [place] [address] Transcribed By: [facility] 11/30/22 1604 Dictated By: Randy Vickers Jr, DO 11/30/22 1602 Signed By: 11/30/22 1604 Normal [facility] XR hand LT min 3V* [facility] [employer] Other XR hand LT min 3V* [facility] [employer] Other XR hand LT min 3V* [address] [place] [address] [employer] Other XR hand LT min 3V* [place] [address] [employer] Other XR hand LT min 3V* XRay Report [employer] Other XR hand LT min 3V* Signed [employer] Other XR hand LT min 3V* Patient: Eliz Hewitt MR#: [id number] [employer] Other XR hand LT min 3V* 5804 [employer] Other XR hand LT min 3V* : 1935 Acct:[id number] [employer] Other XR hand LT min 3V* Age/Sex: 87 / F ADM Date: 11/30/22 [employer] Other XR hand LT min 3V* Loc: [facility] Room: Type: [facility] [employer] Other XR hand LT min 3V* Attending Dr: Asad Pollard DO [employer] Other XR hand LT min 3V* Copies to: Asad Pollard DO [employer] Other XR hand LT min 3V* Ordering Provider: Asad Pollard DO [employer] Other XR hand LT min 3V* Date of Service: 11/30/22 [place] [employer] Other XR hand LT min 3V* XR/XR hand LT min 3V*: Closed displaced fracture of neck of fourth [place] [employer] Other XR hand LT min 3V* metacarpal bone N [facility] [employer] Other XR hand LT min 3V* LEFT HAND - 3 views [employer] Other XR hand LT min 3V* REASON FOR EXAM: Follow-up closed displaced fracture of the neck of the fourth metacarpal bone of [employer] Other XR hand LT min 3V* the left hand. No rt [employer] Other XR hand LT min 3V* COMPARISON: Left hand 10/26/2022. [employer] Other XR hand LT min 3V* FINDINGS: [employer] Other XR hand LT min 3V* Bones are grossly demineralized. Fourth metacarpal fracture is grossly unchanged in alignment with [employer] Other XR hand LT min 3V* minimal healing response since the prior study. No significant change in the base of the proximal [employer] Other XR hand LT min 3V* phalanx of the second digit fracture. Degenerative changes are noted, worse at the CMC joint of the [employer] Other XR hand LT min 3V* thumb. [employer] Other XR hand LT min 3V* XR/XR hand LT min 3V* [employer] Other XR hand LT min 3V* IMPRESSION: [employer] Other XR hand LT min 3V* NO SIGNIFICANT CHANGE IN FOURTH METACARPAL OR PROXIMAL PHALANX SECOND DIGIT FRACTURE FINDINGS. [employer] Other XR hand LT min 3V* Impression dictated by: Randy Vickers Jr., D.O.11/30/2022 4:04 PM [employer] Other XR hand LT min 3V* Dictation Location: [place] [address] [employer] Other XR hand LT min 3V* Transcribed By: PWS 11/30/22 1604 [employer] Other XR hand LT min 3V* Dictated By: Randy Vickers Jr, DO 11/30/22 1602 [employer] Other XR hand LT min 3V* Signed By: [employer] Other XR hand LT min 3V* 11/30/22 1604 [facility] [employer] Other CBC AUTO DIFFon 11-18-2022 BASO # 0.0 103/ul Normal 0.0-0.1 [facility] Comment on above: Performed By: #### C BC #### [facility] [address] [place] [address] Dr. Adan Rinaldi Basophils/100 WBC (Bld) 0.7 % Normal 0.2-2.0 [facility] Comment on above: Performed By: #### C BC #### [facility] [address] [place] [address] [address] Adan Rinaldi EO # 0.3 103/ul Normal 0.0-0.7 [facility] Comment on above: Performed By: #### C BC #### [facility] [address] [place] [address] [address] Adan Rinaldi Eosinophils/100 WBC (Bld) 5.7 % Normal 0.9-7.0 [facility] Comment on above: Performed By: #### C BC #### [facility] [address] [place] [address] Dr. Adan Rinaldi Erythrocyte distribution width (RBC) [Ratio] 15.4 % Critically high 11.0-15.0 [facility] Comment on above: Performed By: #### C BC #### [facility] [address] [place] [address] Dr. Adan Rinaldi Hematocrit (Bld) [Volume fraction] 30.2 % Critically low 36.0-48.0 [facility] Comment on above: Performed By: #### C BC #### [facility] [address] [place] [address] Dr. Adan Rinaldi Hemoglobin (Bld) [Mass/Vol] 9.8 g/dL Critically low 12.0-16.0 [facility] Comment on above: Performed By: #### C BC #### [facility] [address] [place] [address] Dr. Adan Rinaldi IG # 0.01 10e3/ul Normal 0.00-0.03 [facility] Comment on above: Performed By: #### C BC #### [facility] [address] [place] [address] Dr. Adan Rinaldi IG % 0.2 % Normal 0.0-0.5 [facility] Comment on above: Performed By: #### C BC #### [facility] [address] [place] [address] Dr. Adan Rinaldi LYMPH # 1.4 103/ul Normal 1.2-3.8 [facility] Comment on above: Performed By: #### C BC #### [facility] [address] [place] [address] Dr. Adan Rinaldi Lymphocytes/100 WBC (Bld) 25.0 % Normal 20.5-60.0 [facility] Comment on above: Performed By: #### C BC #### [facility] [address] [place] [address] Dr. Adan Rinaldi MANUAL DIFF REQ NO Normal [facility] Comment on above: Performed By: #### C BC #### [facility] [address] [place] [address] Dr. Adan Rinaldi [facility] (RBC) [Entitic mass] 29.0 pg Normal 26.7-34.0 [facility] Comment on above: Performed By: #### C BC #### [facility] [address] [place] [address] Dr. Adan Rinaldi MCHC (RBC) [Mass/Vol] 32.5 g/dL Normal 29.9-35.2 [facility] Comment on above: Performed By: #### C BC #### [facility] [address] [place] [address] Dr. Adan Rinaldi MCV (RBC) [Entitic vol] 89.3 fL Normal 81.0-99.0 [facility] Comment on above: Performed By: #### C BC #### [facility] [address] [place] [address] Dr. Adan Rinaldi MONO # 0.6 103/ul Normal 0.3-0.8 [facility] Comment on above: Performed By: #### C BC #### [facility] [address] [place] [address] Dr. Adan Rinaldi Monocytes/100 WBC (Bld) 11.4 % Normal 1.7-12.0 [facility] Comment on above: Performed By: #### C BC #### [facility] [address] [place] [address] Dr. Adan Rinaldi NEUT # 3.1 103/ul Normal 1.4-6.5 [facility] Comment on above: Performed By: #### C BC #### [facility] [address] [place] [address] Dr. Adan Rinaldi Neutrophils/100 WBC (Bld) 57.0 % Normal 43.0-75.0 [facility] Comment on above: Performed By: #### C BC #### [facility] [address] [place] [address] Dr. Adan Rinaldi Platelet mean volume (Bld) [Entitic vol] 9.6 fL Normal 9.5-13.5 [facility] Comment on above: Performed By: #### C BC #### [facility] [address] [place] [address] Dr. Adan Rinaldi PLT 237 103/ul Normal 150-450 [facility] Comment on above: Performed By: #### C BC #### [facility] [address] [place] [address] Dr. Adan Rinaldi RBC 3.38 106/ul Critically low 4.20-5.40 [facility] Comment on above: Performed By: #### C BC #### [facility] [address] [place] [address] Dr. Adan Rinaldi WBC 5.5 103/ul Normal 4.0-11.0 [facility] Comment on above: Performed By: #### C BC #### [facility] [address] [place] [address] Dr. Adan Rinaldi GLYCOHEMOGLOBIN A1Con 2022 ADA RECOMMENDATION SEE BELOW Normal [facility] Comment on above: Result Comment: ADA RECOMMENDED LIMIT 4.0 - 6.0 ADA THERAPEUTIC TARGET < 7.0 ACTION SUGGESTED > 7.0 Performed By: #### C VDTBH #### [facility] [address] [place] [address] Dr. Adan Rinaldi Glucose [Mass/Vol] 140 mg/dL Normal [facility] Comment on above: Performed By: #### C VDTBH #### [facility] [address] [place] [address] Dr. Adan Rinaldi HbA1c (Bld) [Mass fraction] 6.5 % Critically high 4.5-6.2 [facility] Comment on above: Performed By: #### C VDTBH #### [facility] [address] [place] [address] Dr. Adan Rinaldi PROF CHEM 8 (BAS METB)on Anion gap [Moles/Vol] 11.1 mmol/L Normal [facility] Comment on above: Performed By: #### C BC #### [facility] [address] [place] [address] Dr. Adan Rinaldi Calcium [Mass/Vol] 9.0 mg/dL Normal 8.5-10.1 [facility] Comment on above: Performed By: #### C BC #### [facility] [address] [place] [address] [address] Adan Rinaldi Chloride [Moles/Vol] 101 mmol/L Normal 98-107 [facility] Comment on above: Performed By: #### C BC #### [facility] [address] [place] [address] [address] Adan Rinaldi CO2 [Moles/Vol] 30.3 mmol/L Normal 21.0-32.0 [facility] Comment on above: Performed By: #### C BC #### [facility] [address] [place] [address] [address] Adan Rinaldi Creatinine [Mass/Vol] 1.42 mg/dL Critically high 0.55-1.02 [facility] Comment on above: Performed By: #### C BC #### [facility] [address] [place] [address] [address] Adan Rinaldi EGFR-AF TOGOLESE 43 mL/min/1.73m2 Critically low >=60 [facility] Comment on above: Performed By: #### C BC #### [facility] [address] [place] [address] [address] Adan Rinaldi EGFR-NON AF TOGOLESE 35 mL/min/1.73m2 Critically low >=60 [facility] Comment on above: Performed By: #### C BC #### [facility] [address] [place] [address] [address] Adan Rinaldi Glucose [Mass/Vol] 193 mg/dL Critically high 74-106 [facility] Comment on above: Performed By: #### C BC #### [facility] [address] [place] [address] [address] Adan Rinaldi Potassium [Moles/Vol] 4.4 mmol/L Normal 3.5-5.1 [facility] Comment on above: Performed By: #### C BC #### [facility] [address] [place] [address] [address] Adan Rinaldi Sodium [Moles/Vol] 138 mmol/L Normal 136-145 [facility] Comment on above: Performed By: #### C BC #### [facility] [address] [place], [place] [address] Dr. Adan Rinaldi Urea nitrogen [Mass/Vol] 35.0 mg/dL Critically high 7.0-18.0 [facility] Comment on above: Performed By: #### C BC #### [facility] [address] [place], [place] [address] Dr. Adan Rinaldi Urea nitrogen/Creatinine [Mass ratio] 24.6 mg/mg Normal [facility] Comment on above: Performed By: #### C BC #### [facility] [address] [place], [place] [address] Dr. Adan Rinaldi XR hand LT min 3V*on 023 XR hand LT min 3V* [facility] Main [place] [address] [place] [address] XRay Report Signed Patient: Eliz Hewitt MR#: [id number] : 1935 Acct:[id number] Age/Sex: 86 / F ADM Date: 10/26/22 Loc: [facility] [place] Room: Type: [facility] Attending Dr: Asad Pollard DO Copies to: [...] Abram Baltazar M.D.10/26/2022 4:20 PM Dictation Location: [place] [address] Transcribed By: [facility] 10/26/22 1620 Dictated By: Abram Baltazar II, MD 10/26/22 1603 Signed By: 10/26/22 1620 Normal [facility] XR hand LT min 3V* [facility] ! Other XR hand LT min 3V* [facility] ! Other XR hand LT min 3V* [address] [place] [address] [employer] Other XR hand LT min 3V* [place] [address] [employer] Other XR hand LT min 3V* XRay Report [employer] Other XR hand LT min 3V* Signed [employer] Other XR hand LT min 3V* Patient: Eliz Hewitt MR#: [id number] [employer] Other XR hand LT min 3V* [address] [employer] Other XR hand LT min 3V* : 1935 Acct:[id number] [employer] Other XR hand LT min 3V* Age/Sex: 86 / F ADM Date: 10/26/22 [employer] Other XR hand LT min 3V* Loc: [facility] Room: Type: [facility] [employer] Other XR hand LT min 3V* Attending Dr: Asad Pollard DO [employer] Other XR hand LT min 3V* Copies to: Asad Pollard, DO [employer] Other XR hand LT min 3V* Ordering Provider: Asad Pollard, [employer] Other XR hand LT min 3V* Date of Service: 10/26/22 [employer] Other XR hand LT min 3V* XR/XR hand LT min 3V*: Left hand pain [employer] Other XR hand LT min 3V* XR hand LT min 3V* 10/26/2022 2:05 PM [employer] Other XR hand LT min 3V* SIGNS AND SYMPTOMS: Right fourth metacarpal fracture, follow-up [employer] Other XR hand LT min 3V* PROTOCOL: Frontal, lateral, and oblique radiographs of the right hand [employer] Other XR hand LT min 3V* COMPARISON: 09/19/2022 [employer] Other XR hand LT min 3V* FINDINGS: [employer] Other XR hand LT min 3V* There is an obliquely oriented fracture of the fourth metacarpal along the distal shaft which is [employer] Other XR hand LT min 3V* mildly displaced. There is no change in alignment. There is a fracture at the base of the second [employer] Other XR hand LT min 3V* proximal phalanx with intra-articular extension which is unchanged. There is diffuse soft tissue [employer] Other XR hand LT min 3V* swelling which is similar to the prior exams. Degenerative changes are noted throughout the distal [employer] Other XR hand LT min 3V* interphalangeal joints and at the first carpal metacarpal junction. There is diffuse osteopenia. [employer] Other XR hand LT min 3V* XR/XR hand LT min 3V* [employer] Other XR hand LT min 3V* IMPRESSION: [employer] Other XR hand LT min 3V* mildly displaced. There is no change in alignment. [employer] Other XR hand LT min 3V* There is a fracture at the base of the second proximal phalanx with intra-articular extension which [employer] Other XR hand LT min 3V* is unchanged. [facility] [employer] Other XR hand LT min 3V* Degenerative changes are redemonstrated, as above. [employer] Other XR hand LT min 3V* Impression dictated by: Abram Baltazar M.D.10/26/2022 4:20 PM [employer] Other XR hand LT min 3V* Dictation Location: [place] [address] [employer] Other XR hand LT min 3V* Transcribed By: YOU 10/26/22 1620 [employer] Other XR hand LT min 3V* Dictated By: Abram Baltazar II, MD 10/26/22 1603 [employer] Other XR hand LT min 3V* Signed By: [employer] Other XR hand LT min 3V* 10/26/22 1620 [facility] [employer] Other CBC AUTO DIFFon 10-05-2022 BASO # 0.1 103/ul Normal 0.0-0.1 [facility] Comment on above: Performed By: #### C BC #### [facility] [address] [place] [address] [address] Adan Rinaldi Basophils/100 WBC (Bld) 0.7 % Normal 0.2-2.0 [facility] Comment on above: Performed By: #### C BC #### [facility] [address] [place] [address] [address] Adan Rinaldi EO # 0.4 103/ul Normal 0.0-0.7 [facility] Comment on above: Performed By: #### C BC #### [facility] [address] [place] [address] [address] Adan Rinaldi Eosinophils/100 WBC (Bld) 4.3 % Normal 0.9-7.0 [facility] Comment on above: Performed By: #### C BC #### [facility] [address] [place] [address] Dr. Adan Rinaldi Erythrocyte distribution width (RBC) [Ratio] 13.9 % Normal 11.0-15.0 [facility] Comment on above: Performed By: #### C BC #### [facility] [address] [place] [address] Dr. Adan Rinaldi Hematocrit (Bld) [Volume fraction] 25.9 % Critically low 36.0-48.0 [facility] Comment on above: Performed By: #### C BC #### [facility] [address] [place] [address] Dr. Adan Rinaldi Hemoglobin (Bld) [Mass/Vol] 8.4 g/dL Critically low 12.0-16.0 [facility] Comment on above: Performed By: #### C BC #### [facility] [address] [place] [address] Dr. Adan Rinaldi IG # 0.04 10e3/ul Critically high 0.00-0.03 [facility] Comment on above: Performed By: #### C BC #### [facility] [address] [place] [address] Dr. Adan Rinaldi IG % 0.5 % Normal 0.0-0.5 [facility] Comment on above: Performed By: #### C BC #### [facility] [address] [place] [address] Dr. Adan Rinaldi LYMPH # 0.8 103/ul Critically low 1.2-3.8 [facility] Comment on above: Performed By: #### C BC #### [facility] [address] [place] [address] Dr. Adan Rinaldi Lymphocytes/100 WBC (Bld) 9.6 % Critically low 20.5-60.0 [facility] Comment on above: Performed By: #### C BC #### [facility] [address] [place] [address] Dr. Adan Rinaldi MANUAL DIFF REQ NO Normal [facility] Comment on above: Performed By: #### C BC #### [facility] [address] [place] [address] Dr. Adan Rinaldi MCH (RBC) [Entitic mass] 28.7 pg Normal 26.7-34.0 [facility] Comment on above: Performed By: #### C BC #### [facility] [address] [place] [address] Dr. Adan Rinaldi MCHC (RBC) [Mass/Vol] 32.4 g/dL Normal 29.9-35.2 [facility] Comment on above: Performed By: #### C BC #### [facility] [address] [place] [address] Dr. Adan Rinaldi MCV (RBC) [Entitic vol] 88.4 fL Normal 81.0-99.0 [facility] Comment on above: Performed By: #### C BC #### [facility] [address] [place] [address] Dr. Adan Rinaldi MONO # 0.7 103/ul Normal 0.3-0.8 [facility] Comment on above: Performed By: #### C BC #### [facility] [address] [place] [address] Dr. Adan Rinaldi Monocytes/100 WBC (Bld) 8.0 % Normal 1.7-12.0 [facility] Comment on above: Performed By: #### C BC #### [facility] [address] [place] [address] Dr. Adan Rinaldi NEUT # 6.6 103/ul Critically high 1.4-6.5 [facility] Comment on above: Performed By: #### C BC #### [facility] [address] [place] [address] Dr. Adan Rinaldi Neutrophils/100 WBC (Bld) 76.9 % Critically high 43.0-75.0 [facility] Comment on above: Performed By: #### C BC #### [facility] [address] [place] [address] [address] Adan Rinaldi Platelet mean volume (Bld) [Entitic vol] 9.1 fL Critically low 9.5-13.5 [facility] Comment on above: Performed By: #### C BC #### [facility] [address] [place] [address] [address] Adan Rinaldi PLT 407 103/ul Normal 150-450 [facility] Comment on above: Performed By: #### C BC #### [facility] [address] [place] [address] [address] Adan Rinaldi RBC 2.93 106/ul Critically low 4.20-5.40 [facility] Comment on above: Performed By: #### C BC #### [facility] [address] [place] [address] [address] Adan Rinaldi WBC 8.6 103/ul Normal 4.0-11.0 [facility] Comment on above: Performed By: #### C BC #### [facility] [address] [place] [address] [address] Adan Rinaldi POINT OF CARE GLUCOSEon 09-20 Glucose [Mass/Vol] 328 mg/dL Critically high 74-106 [facility] Comment on above: Performed By: #### P OCGLUC #### [facility] [address] [place] [address] [address] Adan Rinaldi Glucose [Mass/Vol] 265 mg/dL Critically high 74-106 [facility] Comment on above: Performed By: #### P OCGLUC #### [facility] [address] [place] [address] [address] Adan Rinaldi PROF 14(COMP METB)on 023 Albumin [Mass/Vol] 2.3 g/dL Critically low 3.4-5.0 [facility] Comment on above: Performed By: #### P OCGLUC #### [facility] [address] [place] [address] Dr. Adan Rinaldi Albumin/Globulin [Mass ratio] 0.5 {ratio} Normal [facility] Comment on above: Performed By: #### P OCGLUC #### [facility] [address] [place] [address] [address] Adan Rinaldi ALP [Catalytic activity/Vol] 84 U/L Normal 46-116 [facility] Comment on above: Performed By: #### P OCGLUC #### [facility] [address] [place] [address] [address] Adan Rinaldi ALT [Catalytic activity/Vol] 16 U/L Normal 14-59 [facility] Comment on above: Performed By: #### P OCGLUC #### [facility] [address] [place] [address] [address] Adan Rinaldi Anion gap [Moles/Vol] 11.7 mmol/L Normal [facility] Comment on above: Performed By: #### P OCGLUC #### [facility] [address] [place] [address] [address] Adan Rinaldi AST [Catalytic activity/Vol] 24 U/L Normal 15-37 [facility] Comment on above: Performed By: #### P OCGLUC #### [facility] [address] [place] [address] [address] Adan Rinaldi Bilirubin [Mass/Vol] 0.5 mg/dL Normal 0.2-1.0 [facility] Comment on above: Performed By: #### P OCGLUC #### [facility] [address] [place] [address] [address] Adan Rinaldi Calcium [Mass/Vol] 8.5 mg/dL Normal 8.5-10.1 [facility] Comment on above: Performed By: #### P OCGLUC #### [facility] [address] [place] [address] [address] Adan Rinaldi Chloride [Moles/Vol] 96 mmol/L Critically low 98-107 [facility] Comment on above: Performed By: #### P OCGLUC #### [facility] [address] [place] [address] [address] Adan Rinaldi CO2 [Moles/Vol] 27.2 mmol/L Normal 21.0-32.0 [facility] Comment on above: Performed By: #### P OCGLUC #### [facility] [address] [place] [address] [address] Adan Rinaldi Creatinine [Mass/Vol] 1.37 mg/dL Critically high 0.55-1.02 [facility] Comment on above: Performed By: #### P OCGLUC #### [facility] [address] [place] [address] [address] Adan Rinaldi EGFR-AF TOGOLESE 44 mL/min/1.73m2 Critically low >=60 [facility] Comment on above: Performed By: #### P OCGLUC #### [facility] [address] [place] [address] [address] Adan Rinaldi EGFR-NON AF TOGOLESE 37 mL/min/1.73m2 Critically low >=60 [facility] Comment on above: Performed By: #### P OCGLUC #### [facility] [address] [place] [address] [address] Adan Rinaldi Globulin (S) [Mass/Vol] 4.6 g/dL Normal [facility] Comment on above: Performed By: #### P OCGLUC #### [facility] [address] [place] [address] [address] Adan Rinaldi Glucose [Mass/Vol] 276 mg/dL Critically high 74-106 [facility] Comment on above: Performed By: #### P OCGLUC #### [facility] [address] [place] [address] [address] Adan Rinaldi Potassium [Moles/Vol] 3.9 mmol/L Normal 3.5-5.1 [facility] Comment on above: Performed By: #### P OCGLUC #### [facility] [address] [place] [address] [address] Adan Rinaldi Protein [Mass/Vol] 6.9 g/dL Normal 6.4-8.2 [facility] Comment on above: Performed By: #### P OCGLUC #### [facility] [address] [place] [address] [address] Adan Rinaldi Sodium [Moles/Vol] 131 mmol/L Critically low 136-145 [facility] Comment on above: Performed By: #### P OCGLUC #### [facility] [address] [place] [address] Dr. Adan Rinaldi Urea nitrogen [Mass/Vol] 19.0 mg/dL Critically high 7.0-18.0 [facility] Comment on above: Performed By: #### P OCGLUC #### [facility] [address] [place] [address] Dr. Adan Rinaldi Urea nitrogen/Creatinine [Mass ratio] 13.9 mg/mg Normal [facility] Comment on above: Performed By: #### P OCGLUC #### [facility] [address] [place] [address] Dr. Adan Rinaldi CBC AUTO DIFFon 10-04-2022 BASO # 0.1 103/ul Normal 0.0-0.1 [facility] Comment on above: Performed By: #### C VDTBH #### [facility] [address] [place] [address] Dr. Adan Rinaldi Basophils/100 WBC (Bld) 0.8 % Normal 0.2-2.0 [facility] Comment on above: Performed By: #### C VDTBH #### [facility] [address] [place] [address] Dr. Adan Rinaldi EO # 0.1 103/ul Normal 0.0-0.7 [facility] Comment on above: Performed By: #### C VDTBH #### [facility] [address] [place] [address] Dr. Adan Rinaldi Eosinophils/100 WBC (Bld) 0.9 % Normal 0.9-7.0 [facility] Comment on above: Performed By: #### C VDTBH #### [facility] [address] [place] [address] Dr. Adan Rinaldi Erythrocyte distribution width (RBC) [Ratio] 14.1 % Normal 11.0-15.0 [facility] Comment on above: Performed By: #### C VDTBH #### [facility] [address] [place] [address] Dr. Adan Rinaldi Hematocrit (Bld) [Volume fraction] 24.3 % Critically low 36.0-48.0 [facility] Comment on above: Performed By: #### C VDTBH #### [facility] [address] [place] [address] Dr. Adan Rinaldi Hemoglobin (Bld) [Mass/Vol] 7.8 g/dL Critically low 12.0-16.0 [facility] Comment on above: Performed By: #### C VDTBH #### [facility] [address] [place] [address] Dr. Adan Rinaldi IG # 0.03 10e3/ul Normal 0.00-0.03 [facility] Comment on above: Performed By: #### C VDTBH #### [facility] [address] [place] [address] Dr. Adan Rinaldi IG % 0.5 % Normal 0.0-0.5 [facility] Comment on above: Performed By: #### C VDTBH #### [facility] [address] [place] [address] Dr. Adan Rinaldi LYMPH # 0.8 103/ul Critically low 1.2-3.8 [facility] Comment on above: Performed By: #### C VDTBH #### [facility] [address] [place] [address] Dr. Adan Rinaldi Lymphocytes/100 WBC (Bld) 12.4 % Critically low 20.5-60.0 [facility] Comment on above: Performed By: #### C VDTBH #### [facility] [address] [place] [address] Dr. Adan Rinaldi MANUAL DIFF REQ NO Normal [facility] Comment on above: Performed By: #### C VDTBH #### [facility] [address] [place] [address] Dr. Adan Rinaldi MCH (RBC) [Entitic mass] 28.6 pg Normal 26.7-34.0 [facility] Comment on above: Performed By: #### C VDTBH #### [facility] [address] [place] [address] Dr. Adan Rinaldi MCHC (RBC) [Mass/Vol] 32.1 g/dL Normal 29.9-35.2 [facility] Comment on above: Performed By: #### C VDTBH #### [facility] [address] [place] [address] Dr. Adan Rinaldi MCV (RBC) [Entitic vol] 89.0 fL Normal 81.0-99.0 [facility] Comment on above: Performed By: #### C VDTBH #### [facility] [address] [place] [address] Dr. Adan Rianldi MONO # 0.5 103/ul Normal 0.3-0.8 [facility] Comment on above: Performed By: #### C VDTBH #### [facility] [address] [place] [address] Dr. Adan Rinaldi Monocytes/100 WBC (Bld) 8.1 % Normal 1.7-12.0 [facility] Comment on above: Performed By: #### C VDTBH #### [facility] [address] [place] [address] Dr. Adan Rinaldi NEUT # 5.1 103/ul Normal 1.4-6.5 [facility] Comment on above: Performed By: #### C VDTBH #### [facility] [address] [place] [address] Dr. Adan Rinaldi Neutrophils/100 WBC (Bld) 77.3 % Critically high 43.0-75.0 [facility] Comment on above: Performed By: #### C VDTBH #### [facility] [address] [place] [address] Dr. Adan Rinaldi Platelet mean volume (Bld) [Entitic vol] 9.2 fL Critically low 9.5-13.5 [facility] Comment on above: Performed By: #### C VDTBH #### [facility] [address] [place] [address] Dr. Adan Rinaldi PLT 379 103/ul Normal 150-450 [facility] Comment on above: Performed By: #### C VDTBH #### [facility] [address] [place] [address] Dr. Adan Rinaldi RBC 2.73 106/ul Critically low 4.20-5.40 [facility] Comment on above: Performed By: #### C VDTBH #### [facility] [address] [place] [address] Dr. Adan Rinaldi WBC 6.5 103/ul Normal 4.0-11.0 [facility] Comment on above: Performed By: #### C VDTBH #### [facility] [address] [place] [address] Dr. Adan Rinaldi LACTATE/LACTIC ACIDon 2022 Lactate [Moles/Vol] 2.2 mmol/L Critically high 0.4-1.9 [facility] Comment on above: Performed By: #### H STROPN, BMP #### [facility] [address] [place] [address] Dr. Adan Rinaldi POINT OF CARE GLUCOSEon 09-20 Glucose [Mass/Vol] 189 mg/dL Critically high 74-106 [facility] Comment on above: Performed By: #### C BC #### [facility] [address] [place] [address] Dr. Adan Rinaldi Glucose [Mass/Vol] 348 mg/dL Critically high 74-106 [facility] Comment on above: Performed By: #### C VDTBH #### [facility] [address] [place] [address] Dr. Adan Rinaldi Glucose [Mass/Vol] 263 mg/dL Critically high 74-106 [facility] Comment on above: Performed By: #### C VDTBH #### [facility] [address] [place] [address] Dr. Adan Rinaldi PROF 14(COMP METB)on 023 Albumin [Mass/Vol] 2.3 g/dL Critically low 3.4-5.0 [facility] Comment on above: Performed By: #### C VDTBH #### [facility] [address] [place] [address] Dr. Adan Rinaldi Albumin/Globulin [Mass ratio] 0.5 {ratio} Normal [facility] Comment on above: Performed By: #### C VDTBH #### [facility] [address] [address] [address] Adan Rinaldi ALP [Catalytic activity/Vol] 80 U/L Normal 46-116 [facility] Comment on above: Performed By: #### C VDTBH #### [facility] [address] [address] [address] Adan Rinaldi ALT [Catalytic activity/Vol] 17 U/L Normal 14-59 [facility] Comment on above: Performed By: #### C VDTBH #### [facility] [address] [address] [address] Adan Rinaldi Anion gap [Moles/Vol] 14.6 mmol/L Normal [facility] Comment on above: Performed By: #### C VDTBH #### [facility] [address] [place] [address] Dr. Adan Rinaldi AST [Catalytic activity/Vol] 24 U/L Normal 15-37 [facility] Comment on above: Performed By: #### C VDTBH #### [facility] [address] [address] [address] Adan Rinaldi Bilirubin [Mass/Vol] 0.4 mg/dL Normal 0.2-1.0 [facility] Comment on above: Performed By: #### C VDTBH #### [facility] [address] [address] [address] Adan Rinaldi Calcium [Mass/Vol] 8.1 mg/dL Critically low 8.5-10.1 [facility] Comment on above: Performed By: #### C VDTBH #### [facility] [address] [address] [address] Adan Rinaldi Chloride [Moles/Vol] 97 mmol/L Critically low 98-107 [facility] Comment on above: Performed By: #### C VDTBH #### [facility] [address] [address] [address] Adan Rinaldi CO2 [Moles/Vol] 25.9 mmol/L Normal 21.0-32.0 [facility] Comment on above: Performed By: #### C VDTBH #### [facility] [address] [address] [address] Adan Rinaldi Creatinine [Mass/Vol] 1.60 mg/dL Critically high 0.55-1.02 [facility] Comment on above: Performed By: #### C VDTBH #### [facility] [address] [address] [address] Adan Rinaldi EGFR-AF TOGOLESE 37 mL/min/1.73m2 Critically low >=60 [facility] Comment on above: Performed By: #### C VDTBH #### [facility] [address] [address] [address] Adan Rinaldi EGFR-NON AF TOGOLESE 31 mL/min/1.73m2 Critically low >=60 [facility] Comment on above: Performed By: #### C VDTBH #### [facility] [address] [address] [address] Adan Rinaldi Globulin (S) [Mass/Vol] 4.4 g/dL Normal [facility] Comment on above: Performed By: #### C VDTBH #### [facility] [address] [address] [address] Adan Rinaldi Glucose [Mass/Vol] 304 mg/dL Critically high 74-106 [facility] Comment on above: Performed By: #### C VDTBH #### [facility] [address] [address] [address] Adan Rinaldi Potassium [Moles/Vol] 3.5 mmol/L Normal 3.5-5.1 [facility] Comment on above: Performed By: #### C VDTBH #### [facility] [address] [address] [address] Adan Rinaldi Protein [Mass/Vol] 6.7 g/dL Normal 6.4-8.2 [facility] Comment on above: Performed By: #### C VDTBH #### [facility] [address] [address] [address] Adan Rinaldi Sodium [Moles/Vol] 134 mmol/L Critically low 136-145 [facility] Comment on above: Performed By: #### C VDTBH #### [facility] [address] [place] [address] Dr. Adan Rinaldi Urea nitrogen [Mass/Vol] 25.0 mg/dL Critically high 7.0-18.0 [facility] Comment on above: Performed By: #### C VDTBH #### [facility] [address] [place] [address] Dr. Adan Rinaldi Urea nitrogen/Creatinine [Mass ratio] 15.6 mg/mg Normal [facility] Comment on above: Performed By: #### C VDTBH #### [facility] [address] [place] [address] Dr. Adan Rinaldi T4on 10-04-2022 T4 [Mass/Vol] 7.80 ug/dL Normal 4.80-13.90 [facility] Comment on above: Performed By: #### P OCGLUC #### [facility] [address] [place] [address] Dr. Adan Rinaldi TSHon 10-04-2022 TSH 1.653 uIU/mL Normal 0.358-3.740 [facility] Comment on above: Performed By: #### P OCGLUC #### [facility] [address] [place] [address] Dr. Adan Rinaldi XR CHEST 2 Von [...] JOBY GALLARDO Date: 2022-10-04 15:49 Normal [facility] CBC AUTO DIFFon 10-03-2022 BASO # 0.1 103/ul Normal 0.0-0.1 [facility] Comment on above: Performed By: #### C BC #### [facility] [address] [place] [address] Dr. Adan Rinaldi Basophils/100 WBC (Bld) 0.8 % Normal 0.2-2.0 [facility] Comment on above: Performed By: #### C BC #### [facility] [address] [place] [address] Dr. Adan Rinaldi EO # 0.1 103/ul Normal 0.0-0.7 [facility] Comment on above: Performed By: #### C BC #### [facility] [address] [place] [address] Dr. Adan Rinaldi Eosinophils/100 WBC (Bld) 1.8 % Normal 0.9-7.0 [facility] Comment on above: Performed By: #### C BC #### [facility] [address] [place] [address] Dr. Adan Rinaldi Erythrocyte distribution width (RBC) [Ratio] 13.6 % Normal 11.0-15.0 [facility] Comment on above: Performed By: #### C BC #### [facility] [address] [place] [address] Dr. Adan Rinaldi Hematocrit (Bld) [Volume fraction] 28.6 % Critically low 36.0-48.0 [facility] Comment on above: Performed By: #### C BC #### [facility] [address] [place] [address] Dr. Adan Rinaldi Hemoglobin (Bld) [Mass/Vol] 9.3 g/dL Critically low 12.0-16.0 [facility] Comment on above: Performed By: #### C BC #### [facility] [address] [place] [address] Dr. Adan Rinaldi IG # 0.04 10e3/ul Critically high 0.00-0.03 [facility] Comment on above: Performed By: #### C BC #### [facility] [address] [place] [address] Dr. Adan Rinaldi IG % 0.6 % Critically high 0.0-0.5 [facility] Comment on above: Performed By: #### C BC #### [facility] [address] [place] [address] Dr. Adan Rinaldi LYMPH # 0.7 103/ul Critically low 1.2-3.8 [facility] Comment on above: Performed By: #### C BC #### [facility] [address] [place] [address] Dr. Adan Rinaldi Lymphocytes/100 WBC (Bld) 10.7 % Critically low 20.5-60.0 [facility] Comment on above: Performed By: #### C BC #### [facility] [address] [place] [address] Dr. Adan Rinaldi MANUAL DIFF REQ NO Normal [facility] Comment on above: Performed By: #### C BC #### [facility] [address] [place] [address] Dr. Adan Rinaldi MCH (RBC) [Entitic mass] 28.2 pg Normal 26.7-34.0 [facility] Comment on above: Performed By: #### C BC #### [facility] [address] [place] [address] Dr. Adan Rinaldi MCHC (RBC) [Mass/Vol] 32.5 g/dL Normal 29.9-35.2 [facility] Comment on above: Performed By: #### C BC #### [facility] [address] [place] [address] Dr. Adan Rinaldi MCV (RBC) [Entitic vol] 86.7 fL Normal 81.0-99.0 [facility] Comment on above: Performed By: #### C BC #### [facility] [address] [place] [address] Dr. Adan Rinaldi MONO # 0.7 103/ul Normal 0.3-0.8 [facility] Comment on above: Performed By: #### C BC #### [facility] [address] [place] [address] Dr. Adan Rinaldi Monocytes/100 WBC (Bld) 10.1 % Normal 1.7-12.0 [facility] Comment on above: Performed By: #### C BC #### [facility] [address] [place] [address] Dr. Adan Rinaldi NEUT # 5.0 103/ul Normal 1.4-6.5 [facility] Comment on above: Performed By: #### C BC #### [facility] [address] [address] [address] Adan Rinaldi Neutrophils/100 WBC (Bld) 76.0 % Critically high 43.0-75.0 [facility] Comment on above: Performed By: #### C BC #### [facility] [address] [place] [address] Dr. Adan Rinaldi Platelet mean volume (Bld) [Entitic vol] 9.3 fL Critically low 9.5-13.5 [facility] Comment on above: Performed By: #### C BC #### [facility] [address] [place] [address] Dr. Adan Rinaldi PLT 480 103/ul Critically high 150-450 [facility] Comment on above: Performed By: #### C BC #### [facility] [address] [place] [address] Dr. Adan Rinaldi RBC 3.30 106/ul Critically low 4.20-5.40 [facility] Comment on above: Performed By: #### C BC #### [facility] [address] [place] [address] Dr. Adan Rinaldi WBC 6.6 103/ul Normal 4.0-11.0 [facility] Comment on above: Performed By: #### C BC #### [facility] [address] [place] [address] HEAD WO CONon [...] DEE JESUS Date: 2022-10-03 15:52 Normal [facility] CULTURE BLOODon 10-03-2022 Microscopic examination of blood, culture Culture Observations: NO GROWTH AT 5 DAYS. Normal [facility] Comment on above: Performed By: #### P OCGLUC #### [facility] [address] [place] [address] Dr. Adan Rinaldi Microscopic examination of blood, culture Culture Observations: NO GROWTH AT 5 DAYS. Normal [facility] Comment on above: Performed By: #### B [id number] #### [facility] [address] [place] [address] Dr. Adan Rinaldi Covid-19 PCR (CVDTB)on 09-20 SARS-CoV-2 (COVID-19) RNA BLU+probe Ql (Unsp spec) Not detected Normal NOT DETECTED [facility] Comment on above: Result Comment: [...] for this test is supported by the Clinical Documentation Spec of Health and Human Service's declaration that [...] be used). Performed By: #### H LYNNE, [facility] #### [facility] [address] [place] [address] Dr. Adan MCKEON URINE PROFILEon 3 Bilirubin Ql (U) Negative Normal NEGATIVE [facility] Comment on above: Performed By: #### C VDTBH #### [facility] [address] [place] [address] Dr. Adan Rinaldi Clarity (U) CLEAR Normal CLEAR [facility] Comment on above: Performed By: #### C VDTBH #### [facility] [address] [place] [address] Dr. Adan Rinaldi Color (U) LT. YELLOW Normal YELLOW [facility] Comment on above: Performed By: #### C VDTBH #### [facility] [address] [place] [address] Dr. Adan JONES A micrscopic examination will be performed if indicated. Normal [facility] Comment on above: Performed By: #### C VDTBH #### [facility] [address] [place] [address] Dr. Adan Rinaldi Glucose Ql (U) Negative Normal NEGATIVE [facility] Comment on above: Performed By: #### C VDTBH #### [facility] [address] [place] [address] Dr. Adan Rinaldi Hemoglobin Ql (U) Negative Normal NEGATIVE [facility] Comment on above: Performed By: #### C VDTBH #### [facility] [address] [place] [address] Dr. Adan Rinaldi Ketones Ql (U) Negative Normal NEGATIVE [facility] Comment on above: Performed By: #### C VDTBH #### [facility] [address] [place] [address] Dr. Adan Rinaldi LEUKOCYTES Negative Normal NEGATIVE [facility] Comment on above: Performed By: #### C VDTBH #### [facility] [address] [place] [address] Dr. Adan Rinaldi Nitrite Ql (U) Negative Normal NEGATIVE [facility] Comment on above: Performed By: #### C VDTBH #### [facility] [address] [place] [address] Dr. Adan Rinaldi pH (U) 8.0 [pH] Normal 5-9 [facility] Comment on above: Performed By: #### C VDTBH #### [facility] [address] [place] [address] Dr. Adan Rinaldi SPEC GRAVITY 1.010 Normal 1.005-<=1.025 [facility] Comment on above: Performed By: #### C VDTBH #### [facility] [address] [place] [address] Dr. Adan Rinaldi UA PROTEIN Negative Normal NEGATIVE/ TRACE [facility] Comment on above: Performed By: #### C VDTBH #### [facility] [address] [place] [address] Dr. Adan Rinaldi UR MICRO IND NOT INDICATED Normal [facility] Comment on above: Performed By: #### C VDTBH #### [facility] [address] [place] [address] Dr. Adan Rinaldi Urobilinogen Qn (U) 4 {Manny'U}/dL Abnormal 0.2 - 1.0 [facility] Comment on above: Performed By: #### C VDTBH #### [facility] [address] [place] [address] Dr. Adan Rinaldi INFLUENZA A AND B AGon 10-03 [facility] SEE BELOW Normal [facility] Comment on above: Result Comment: Nega tive for Flu A protein angiten. Infection due to Flu A cannot be ruled out. Flu A angiten in the sample may be below the detection limit of the test. Performed By: #### P OCGLUC #### [facility] [address] [place] [address] Dr. Adan Rinaldi INFLUBNEG SEE BELOW Normal [facility] Comment on above: Result Comment: Nega tive for Flu B protein antigen. Infection due to Flu B cannot be ruled out. Flu B antigen in the sample may be below the detection limit of the test. Performed By: #### P OCGLUC #### [facility] [address] [place] [address] Dr. Adan Rinaldi INFLUENZA A AG Negative Normal NEGATIVE SEE COMMENT [facility] Comment on above: Performed By: #### P OCGLUC #### [facility] [address] [place] [address] Dr. Adan Rinaldi INFLUENZA B AG Negative Normal NEGATIVE SEE COMMENT [facility] Comment on above: Performed By: #### P OCGLUC #### [facility] [address] [place] [address] Dr. Adan Rinaldi LACTATE/LACTIC ACIDon 2022 Lactate [Moles/Vol] 1.4 mmol/L Normal 0.4-1.9 [facility] Comment on above: Performed By: #### H STROPN, BMP #### [facility] [address] [place] [address] Dr. Adan Rinaldi POINT OF CARE GLUCOSEon 09-20 Glucose [Mass/Vol] 169 mg/dL Critically high 74-106 [facility] Comment on above: Performed By: #### C BC #### [facility] [address] [place] [address] Dr. Adan Rinaldi Glucose [Mass/Vol] 276 mg/dL Critically high -106 [facility] Comment on above: Performed By: #### H STROPN, BMP #### [facility] [address] [place] [address] Dr. Adan Rinaldi PROF 14(COMP METB)on 023 Albumin [Mass/Vol] 2.6 g/dL Critically low 3.4-5.0 [facility] Comment on above: Performed By: #### C BC #### [facility] [address] [place] [address] Dr. Adan Rinaldi Albumin/Globulin [Mass ratio] 0.5 {ratio} Normal [facility] Comment on above: Performed By: #### C BC #### [facility] [address] [place] [address] Dr. Adan Rinaldi ALP [Catalytic activity/Vol] 92 U/L Normal 46-116 [facility] Comment on above: Performed By: #### C BC #### [facility] [address] [address] [address] Adan Rinaldi ALT [Catalytic activity/Vol] 25 U/L Normal 14-59 [facility] Comment on above: Performed By: #### C BC #### [facility] [address] [address] [address] Adan Rinaldi Anion gap [Moles/Vol] 14.3 mmol/L Normal Th e [facility] Comment on above: Performed By: #### C BC #### [facility] [address] [address] [address] Adan Rinaldi AST [Catalytic activity/Vol] 28 U/L Normal 15-37 [facility] Comment on above: Performed By: #### C BC #### [facility] [address] [address] [address] Adan Rinaldi Bilirubin [Mass/Vol] 0.6 mg/dL Normal 0.2-1.0 [facility] Comment on above: Performed By: #### C BC #### [facility] [address] [address] [address] Adan Rinaldi Calcium [Mass/Vol] 9.0 mg/dL Normal 8.5-10.1 [facility] Comment on above: Performed By: #### C BC #### [facility] [address] [address] [address] Adan Rinaldi Chloride [Moles/Vol] 93 mmol/L Critically low 98-107 [facility] Comment on above: Performed By: #### C BC #### [facility] [address] [address] [address] Adan Rinaldi CO2 [Moles/Vol] 30.2 mmol/L Normal 21.0-32.0 [facility] Comment on above: Performed By: #### C BC #### [facility] [address] [address] [address] Adan Rinaldi Creatinine [Mass/Vol] 1.70 mg/dL Critically high 0.55-1.02 [facility] Comment on above: Performed By: #### C BC #### [facility] [address] [address] [address] Adna Rinaldi EGFR-AF TOGOLESE 35 mL/min/1.73m2 Critically low >=60 [facility] Comment on above: Performed By: #### C BC #### [facility] [address] [address] [address] Adan Rinaldi EGFR-NON AF TOGOLESE 29 mL/min/1.73m2 Critically low >=60 [facility] Comment on above: Performed By: #### C BC #### [facility] [address] [address] [address] Adan Rinaldi Globulin (S) [Mass/Vol] 5.2 g/dL Normal [facility] Comment on above: Performed By: #### C BC #### [facility] [address] [address] [address] Adan Rinaldi Glucose [Mass/Vol] 171 mg/dL Critically high 74-106 T [facility] Comment on above: Performed By: #### C BC #### [facility] [address] [address] [address] Adan Rinaldi Potassium [Moles/Vol] 3.5 mmol/L Normal 3.5-5.1 [facility] Comment on above: Performed By: #### C BC #### [facility] [address] [address] [address] Adan Rinaldi Protein [Mass/Vol] 7.8 g/dL Normal 6.4-8.2 [facility] Comment on above: Performed By: #### C BC #### [facility] [address] [address] [address] Adan Rinaldi Sodium [Moles/Vol] 134 mmol/L Critically low 136-145 Th [facility] Comment on above: Performed By: #### C BC #### [facility] [address] [address] [address] Adan Rinaldi Urea nitrogen [Mass/Vol] 28.0 mg/dL Critically high 7.0-18.0 [facility] Comment on above: Performed By: #### C BC #### [facility] [address] [place], [place] [address] Dr. Adan Rinaldi Urea nitrogen/Creatinine [Mass ratio] 16.5 mg/mg Normal [facility] Comment on above: Performed By: #### C BC #### [facility] [address] [place], [place] [address] Dr. Adan Rinaldi XR CHEST 1 Von [...] by: JOBY RICH Date: 2022-10-03 11:24 Normal [facility] Glucose Glucometer (BldC) [M ass/Vol]Ordered By: Donn Joseph on 09-24-2022 Glucose [Mass/Vol] 184 mg/dL [facility] Comment on above: Random Glucose Refer ence Range is dependent on time and content of last meal. Glucose of more than 200 mg/dL in a nonstressed, ambulatory subject supports the diagnosis of Diabetes Mellitus. Glucose Poct Glucometerson 0 09-24-2022 Glucose [Mass/Vol] 184 mg/dL Normal [facility] Comment on above: Result Comment: [place] Glucose Reference Range is dependent on time and content of last meal. Glucose of more than 200 mg/dL in a nonstressed, ambulatory subject supports the diagnosis of Diabetes Mellitus. PERFORMED BY: [place] [address] PATHOLOGIST MOBILE MARKETING SPECIALIST JUMA XIE M.D. Performed By: #### G LULS #### Point of Care testing , US carotid doppler BIon US carotid doppler BI [facility] Main [place] [address] [place] [address] Ultrasound Report Signed Patient: Eliz Hewitt MR#: [id number] : 1935 Acct:[id number] Age/Sex: 86 / F ADM Date: 09/19/22 Loc: 4N Room: 4P8579-2 Type: DIS IN Attending Dr: Donn Joseph [...] Malachi Luna MD09/24/2022 4:56 PM Dictation Location: [facility] Tech: Veronica Hyltonmike Transcribed By: YOU 09/24/221655 Dictated By: Malachi Luna MD 09/24/221654 Signed By: 09/24/221655 Normal [facility] Folate [Mass/volume] in Seru m or PlasmaOrdered By: Jodi Swift on 09-23-2022 Folate [Mass/Vol] 9.7 ng/mL >5.9 [facility] Comment on above: Folate reference ran ge: >5.9 ng/mlThe WHO technical consultation on folate and vitamin [id number] has determined that folate concentrations lessthan 4 ng/ml are considered deficient. Glucose Poct Glucometerson 0 09-23-2022 Glucose [Mass/Vol] 218 mg/dL Normal [facility] Comment on above: Result Comment: [facility] Glucose Reference Range is dependent on time and content of last meal. Glucose of more than 200 mg/dL in a nonstressed, ambulatory subject supports the diagnosis of Diabetes Mellitus. PERFORMED BY: [address] [place] [address] PATHOLOGIST MOBILE MARKETING SPECIALIST JUMA XIE M.D. Performed By: #### G LULS #### Point of Care testing , Commemt1 Glu2: Cleaned Meter Normal [facility] Comment on above: Result Comment: PERF ORMED BY: [facility] [address] [place] [address] PATHOLOGIST MOBI[employer] MARKETING SPECIALIST JUMA XIE M.D. Performed By: #### G LULS #### Point of Care testing , Glucose [Mass/Vol] 154 mg/dL Normal [facility] Comment on above: Result Comment: [place] om Glucose Reference Range is dependent on time and content of last meal. Glucose of more than 200 mg/dL in a nonstressed, ambulatory subject supports the diagnosis of Diabetes Mellitus. Performed By: #### G LULS #### Point of Care testing , Glucose [Mass/Vol] 139 mg/dL Normal [facility] Comment on above: Result Comment: [place] om Glucose Reference Range is dependent on time and content of last meal. Glucose of more than 200 mg/dL in a nonstressed, ambulatory subject supports the diagnosis of Diabetes Mellitus. PERFORMED BY: [place] [address] PATHOLOGIST MOBILE MARKETING SPECIALIST JUMA XIE M.D. Performed By: #### G LULS #### Point of Care testing , Commemt1 Glu2: Cleaned Meter Normal [facility] Comment on above: Result Comment: PERF ORMED BY: [address] [address] PATHOLOGIST MOBILE MARKETING SPECIALIST JUMA XIE M.D. Performed By: #### G LULS ####Point of Care testing, Glucose [Mass/Vol] 143 mg/dL Normal [facility] Comment on above: Result Comment: [place] om Glucose Reference Range is dependent on time and content of last meal. Glucose of more than 200 mg/dL in a nonstressed, ambulatory subject supports the diagnosis of Diabetes Mellitus. Performed By: #### G LULS ####Point of Care testing, Laboratory - Chemistry and C hemistry - challengeOrdered By: Jodi Swift on 09-23-2022 Cobalamin (Vitamin B12) [Mass/Vol] 545 pg/mL 180-914 [facility] MR angio MR brain w/oon MR angio MR brain w/o [facility] Main [address] [address] MRI Report Signed Patient: Eilz Hewitt MR#: [id number] : 1935 Acct:[id number] Age/Sex: 86 / F ADM Date: 09/19/22 Loc: Room: [address] [place] [address] Type: ADM IN Attending Dr: Donn Joseph DO Copies to: AMARJIT Dunbar DO Ordering Provider: AMARJIT Dunbar Date of Service: 09/23/22 MR/MR angio MR brain w/o: Fall, ? Syncope MR angio MR brain w/o 09/23/2022 9:15 AM SIGN OF SYMPTOMS: Fall, syncopal episode, facial trauma PROTOCOL: Multiplanar multisequence MR images of the brain were obtained without IV contrast. Images include axial 3-D [id number] MRA with 3-D reconstructions COMPARISON: 09/22/2022 FINDINGS: [...] Abram Baltazar M.D.09/23/2022 2:01 PM Dictation Location: [place] [address] Transcribed By: YOU 09/23/22 1401 Dictated By: Abram Baltazar II, MD 09/23/22 1353 Signed By: 09/23/22 1401 Normal [facility] No Panel InformationOrdered By: Donn Joseph on 09-23-2022 Bedside Glucose Comment Glu2: cleaned meter [facility] TSH DL <= 0.005 mIU/L QnOrde red By: Jodi Swift on 09-23-2022 TSH Qn 2.54 m[IU]/L 0.45-5.33 [facility] Thyroid Stimulating Hormoneo n 09-23-2022 TSH Qn 2.54 m[IU]/L Normal 0.45-5.33 [facility] Comment on above: Result Comment: PERF ORMED BY: [facility] [address] [place] [id number] PATHOLOGIST MOBI[employer] MARKETING SPECIALIST JUMA XIE M.D. Performed By: #### V [id number], TSH3 ####[place] [id number] [place] [address] [facility] Vit. B12/Folate Profileon Cobalamin (Vitamin B12) [Mass/Vol] 545 pg/mL Normal 180-914 [facility] Comment on above: Performed By: #### V [id number], TSH3 ####[place] [id number] [place] [id number] [facility] Folate 9.7 ng/mL Normal >5.9 [facility] Comment on above: Result Comment: [place] te reference range: >5.9 ng/ml The WHO technical consultation on folate and vitamin b12 deficiencies has determined that folate concentrations less than 4 ng/ml are considered deficient. Performed By: #### V [id number], TSH3 ####[place] [id number] [place] [address] [place] XR ankle RT 2Von 09-23-2022 XR ankle RT 2V [facility] Main [place] [address] [place] [id number] XRay Report Signed Patient: Eliz Hewitt MR#: [id number] : 1935 Acct:[id number] Age/Sex: 86 / F ADM Date: 09/19/22 Loc: 4N Room: [address] [place] [address] Type: ADM IN Attending Dr: Donn Joseph [...] PROCESS. Impression dictated by: Randy Vickers Jr., D.OArpit09/23/2022 12:59 PM Dictation Location: [place] [address] Transcribed By: [facility] 09/23/22 1259 Dictated By: Randy Vickers Jr, DO 09/23/22 1258 Signed By: 09/23/22 1259 [facility] Arterial Blood Gason 023 ABG Base Excess -0.7 mmol/L Normal -3.0-3.[address] [facility] Comment on above: Performed By: #### G LULS #### Point of Care testing , ABG Frac Inspired O2 21 % [facility] Comment on above: Performed By: #### G LULS #### Point of Care testing , ABG Oxygen Content 6.0 mmol/L Low 6.6-9.7 [facility] Comment on above: Performed By: #### G LULS #### Point of Care testing , ABG Oxygen Saturation 93.6 % Low 95.0-100.0 [facility] Comment on above: Performed By: #### G LULS #### Point of Care testing , ABG PCO2 28.6 mm[Hg] Off scale low 35.0-45.0 [facility] Comment on above: Performed By: #### G LULS #### Point of Care testing , ABG PH 7.50 High 7.35-7.45 [facility] Comment on above: Performed By: #### G LULS #### Point of Care testing , ABG PO2 61.9 mm[Hg] Low 80.0-100.0 [facility] Comment on above: Performed By: #### G LULS #### Point of Care testing , CO2 [Moles/Vol] 22.7 mmol/L Low 23.0-27.[address] [facility] Comment on above: Performed By: #### G LULS #### Point of Care testing , HCO3 (Bld) [Moles/Vol] 21.8 mmol/L Low 23.0-29.0 [facility] Comment on above: Performed By: #### G LULS #### Point of Care testing , Respiratory Critical Normal [facility] Comment on above: Result Comment: Crit ical Value called on: 09/22/2022 at 17:27 PERFORMED BY: [facility] [address] [place] [address] PATHOLOGIST MOBILE MARKETING SPECIALIST JUMA XIE M.D. Performed By: #### G LULS #### Point of Care testing , VBG Draw Site Right Radial Normal [facility] Comment on above: Performed By: #### G LULS #### Point of Care testing , Automated erythrocytes count in urine sediment (number/area)Ordered By: Donn Joseph on 09-22-2022 RBC Auto (Urine sed) [#/Area] 1-2 [HPF] 0-4 [facility] Automated leukocytes count i n urine sediment (number/area)Ordered By: Donn Joseph on 09-22-2022 WBC Auto (Urine sed) [#/Area] 10-19 [HPF] 0-4 [facility] Automated urine hyaline cast s count (number/volume)Ordered By: Donn Joseph on 09-22-2022 Hyaline casts Auto (U) [#/Vol] 5-9 [LPF] 0-1 [facility] B-Type Natriuretic Peptideon 09-22-2022 Natriuretic peptide B (Bld) [Mass/Vol] 3128.0 pg/mL High 5-100 [facility] Comment on above: Order Comment: RN ky lie notified AB 1602 THEY ARE STARTING A IV Result Comment: PERF ORMED BY: [facility] [address] [place] [address] PATHOLOGIST MOBI[employer] MARKETING SPECIALIST JUMA XIE M.D. Performed By: #### G LULS #### Point of Care testing , Basic Metabolic Panelon 01-0 Anion gap [Moles/Vol] 10.5 mmol/L Normal 6.0-15.0 [facility] Comment on above: Performed By: #### G LULS #### Point of Care testing , Calcium [Mass/Vol] 7.8 mg/dL Low 8.2-10.2 [facility] Comment on above: Performed By: #### G LULS #### Point of Care testing , Chloride [Moles/Vol] 106 mmol/L Normal 95-114 [facility] Comment on above: Performed By: #### G LULS #### Point of Care testing , CO2 [Moles/Vol] 19.0 mmol/L Low 22.0-30.[address] [facility] Comment on above: Performed By: #### G LULS #### Point of Care testing , Creatinine [Mass/Vol] 1.03 mg/dL Normal 0.44-1.03 [facility] Comment on above: Performed By: #### G LULS #### Point of Care testing , Creatinine Clr Calc Pharmacy 34.48 [facility] Comment on above: Result Comment: PERF ORMED BY: [facility] [address] [place] [address] PATHOLOGIST MOBILE MARKETING SPECIALIST JUMA XIE M.D. Performed By: #### G LULS #### Point of Care testing , Estimated GFR ( Khushi > 60 [facility] Comment on above: Result Comment: GFR estimated reference range: According to KDOQI guidelines, <60 ml/min/1.73m2 is sufficient to diagnose a patient with chronic kidney disease. Performed By: #### G LULS #### Point of Care testing , Estimated GFR (Non- Am 51 [facility] Comment on above: Performed By: #### G LULS #### Point of Care testing , Glucose [Mass/Vol] 212 mg/dL Significant change up 70-100 [facility] Comment on above: Result Comment: [place] Glucose Reference Range is dependent on time [...] , Sodium [Moles/Vol] 132 mmol/L Low 136-146 [facility] Comment on above: Performed By: #### G LULS #### Point of Care testing , Urea nitrogen [Mass/Vol] 21 mg/dL Normal 9-23 [facility] Comment on above: Performed By: #### G LULS #### Point of Care testing , Basophils Auto (Bld) [#/Vol] Ordered By: Donn Joseph on 09-22-2022 Basophils (Bld) [#/Vol] 0.1 10*3/uL 0.0-0.2 [facility] Basophils/100 WBC Auto (Bld) Ordered By: Donn Joseph on 09-22-2022 Basophils/100 WBC (Bld) 0.9 % . [facility] Bilirubin Test strip Ql (U)O rdered By: Donn Joseph on 09-22-2022 Bilirubin Ql (U) Negative Negative [facility] Body fluid albumin measureme nt (mass/volume)Ordered By: Donn Joseph on 09-22-2022 Albumin (Body fld) [Mass/Vol] 2.4 g/dL 3.2-5.5 [facility] CT head/brain wo conon 09-22 CT head/brain wo con [facility] [place] [address] CT Scan Report Signed Patient: Eliz Hewitt MR#: [id number] : 1935 Acct:[id number] Age/Sex: 86 / F ADM Date: 09/19/22 Loc: 4 Room: 1I9260-0 Type: ADM IN Attending Dr: Donn Joseph [...] Abram Baltazar M.D.09/22/2022 5:45 PM Dictation Location: [place] [address] Transcribed By: [facility] 09/22/221744 Dictated By: Abram Baltazar II, MD 09/22/221740 Signed By: 09/22/221744 Normal [facility] Casts typing in urine sedime nt by light microscopyOrdered By: Donn Joseph on 09-22-2022 Casts LM Nom (Urine sed) None seen [LPF] None Seen [facility] Color Auto (U)Ordered By: Flavia Joseph on 09-22-2022 Color (U) Dark yellow Yellow [facility] Complete Blood Count Auto Di ffon 09-22-2022 Basophils (Bld) [#/Vol] 0.1 10*3/uL Normal 0.0-0.2 [facility] Comment on above: Order Comment: ETELVINA alberto lie notified AB 1601 THEY ARE STARTING A IV Result Comment: PERF ORMED BY: [place] [address] PATHOLOGIST MOBI[employer] MARKETING SPECIALIST JUMA XIE M.D. Performed By: #### G LULS #### Point of Care testing , Basophils/100 WBC (Bld) 0.9 % Normal . [facility] Comment on above: Order Comment: ETELVINA alberto lie notified AB 1601 THEY ARE STARTING A IV Performed By: #### G LULS #### Point of Care testing , Eosinophils (Bld) [#/Vol] 0.1 10*3/uL Normal 0.0-0.45 [facility] Comment on above: Order Comment: ETELVINA alberto lie notified AB 1601 THEY ARE STARTING A IV Performed By: #### G LULS #### Point of Care testing , Eosinophils/100 WBC (Bld) 1.6 % Normal . [facility] Comment on above: Order Comment: ETELVINA alberto lie notified AB 1601 THEY ARE STARTING A IV Performed By: #### G LULS #### Point of Care testing , Erythrocyte distribution width (RBC) [Ratio] 15.6 % High 11.9-15.3 [facility] Comment on above: Order Comment: ETELVINA alberto lie notified AB 1601 THEY ARE STARTING A IV Performed By: #### G LULS #### Point of Care testing , Hematocrit (Bld) [Volume fraction] 26.5 % Low 34.0-46.4 [facility] Comment on above: Order Comment: ETELVINA alberto lie notified AB 1601 THEY ARE STARTING A IV Performed By: #### G LULS #### Point of Care testing , Hemoglobin (Bld) [Mass/Vol] 8.8 g/dL Low 11.8-15.4 [facility] Comment on above: Order Comment: ETELVINA alberto lie notified AB 1601 THEY ARE STARTING A IV Performed By: #### G LULS #### Point of Care testing , Lymphocytes (Bld) [#/Vol] 0.9 10*3/uL Low 1.00-4.8 [facility] Comment on above: Order Comment: ETELVINA alberto lie notified AB 1601 THEY ARE STARTING A IV Performed By: #### G LULS #### Point of Care testing , Lymphocytes/100 WBC (Bld) 10.4 % Normal . [facility] Comment on above: Order Comment: ETELVINA alberto lie notified AB 1601 THEY ARE STARTING A IV Performed By: #### G LULS #### Point of Care testing , MCH (RBC) [Entitic mass] 30.0 pg Normal 24.7-34.3 [facility] Comment on above: Order Comment: ETELVINA alberto lie notified 1601 THEY ARE STARTING A IV Performed By: #### G LULS #### Point of Care testing , MCV (RBC) [Entitic vol] 89.9 fL Normal 80-100 [facility] Comment on above: Order Comment: ETELVINA alberto lie notified 1601 THEY ARE STARTING A IV Performed By: #### G LULS #### Point of Care testing , Mean Corpuscular HGB Conc 33.3 g/dL Normal 32.0-35.0 [facility] Comment on above: Order Comment: ETELVINA alberto lie notified 1601 THEY ARE STARTING A IV Performed By: #### G LULS #### Point of Care testing , Monocytes (Bld) [#/Vol] 0.8 10*3/uL Normal 0.0-0.8 [facility] Comment on above: Order Comment: ETELVINA alberto lie notified 1601 THEY ARE STARTING A IV Performed By: #### G LULS #### Point of Care testing , Monocytes/100 WBC (Bld) 9.8 % Normal . [facility] Comment on above: Order Comment: ETELVINA alberto lie notified AB 1601 THEY ARE STARTING A IV Performed By: #### G LULS #### Point of Care testing , Neutrophils (Bld) [#/Vol] 6.6 10*3/uL Normal 1.8-7.7 [facility] Comment on above: Order Comment: ETELVINA alberto lie notified AB 1601 THEY ARE STARTING A IV Performed By: #### G LULS #### Point of Care testing , Neutrophils/100 WBC (Bld) 77.3 % Normal . [facility] Comment on above: Order Comment: ETELVINA avila notified AB 1601 THEY ARE STARTING A IV Performed By: #### G LULS #### Point of Care testing , NRBC% 0.1 /100{WBC} Normal 0-0.5 [facility] Comment on above: Order Comment: ETELVINA avila notified AB 1601 THEY ARE STARTING A IV Performed By: #### G LULS #### Point of Care testing , Platelet mean volume (Bld) [Entitic vol] 8.2 fL Normal 6.3-10.7 [facility] Comment on above: Order Comment: ETELVINA avila notified AB 1601 THEY ARE STARTING A IV Performed By: #### G LULS #### Point of Care testing , Platelets (Bld) [#/Vol] 161 10*3/uL Normal 150-450 [facility] Comment on above: Order Comment: ETELVINA avila notified 1601 THEY ARE STARTING A IV Performed By: #### G LULS #### Point of Care testing , RBC (Bld) [#/Vol] 2.94 10*6/uL Low 3.60-5.00 [facility] Comment on above: Order Comment: ETELVINA avila notified 1601 THEY ARE STARTING A IV Performed By: #### G LULS #### Point of Care testing , WBC (Bld) [#/Vol] 8.6 10*3/uL Normal 3.8-11.6 [facility] Comment on above: Order Comment: ETELVINA avila notified 1601 THEY ARE STARTING A IV Performed By: #### G LULS #### Point of Care testing , Basophils (Bld) [#/Vol] 0.1 10*3/uL Normal 0.0-0.2 [facility] Comment on above: Result Comment: PERF ORMED BY: [facility] [address] [place] [address] PATHOLOGIST [employer]BI[employer] MARKET[employer] SPECIALIST JUMA XIE M.D. Performed By: #### G LULS #### Point of Care testing , Basophils/100 WBC (Bld) 1.3 % Normal . [facility] Comment on above: Performed By: #### G ESTELALS #### Point of Care testing , Eosinophils (Bld) [#/Vol] 0.0 10*3/uL Normal 0.0-0.45 [facility] Comment on above: Performed By: #### G ESTELALS #### Point of Care testing , Eosinophils/100 WBC (Bld) 0.5 % Normal . [facility] Comment on above: Performed By: #### G ESTELALS #### Point of Care testing , Erythrocyte distribution width (RBC) [Ratio] 15.3 % Normal 11.9-15.3 [facility] Comment on above: Performed By: #### G ESTELALS #### Point of Care testing , Hematocrit (Bld) [Volume fraction] 27.0 % Low 34.0-46.4 [facility] Comment on above: Performed By: #### G ESTELALS #### Point of Care testing , Hemoglobin (Bld) [Mass/Vol] 9.0 g/dL Low 11.8-15.4 [facility] Comment on above: Performed By: #### G EZEQUIEL #### Point of Care testing , Lymphocytes (Bld) [#/Vol] 0.9 10*3/uL Low 1.00-4.8 [facility] Comment on above: Performed By: #### G ESTELALS #### Point of Care testing , Lymphocytes/100 WBC (Bld) 9.4 % Normal . [facility] Comment on above: Performed By: #### G ESTELALS #### Point of Care testing , MCH (RBC) [Entitic mass] 29.9 pg Normal 24.7-34.3 [facility] Comment on above: Performed By: #### G ESTELALS #### Point of Care testing , MCV (RBC) [Entitic vol] 90.3 fL Normal 80-100 [facility] Comment on above: Performed By: #### G ESTELALS #### Point of Care testing , Mean Corpuscular HGB Conc 33.2 g/dL Normal 32.0-35.0 [facility] Comment on above: Performed By: #### Piedad NIEVES #### Point of Care testing , Monocytes (Bld) [#/Vol] 0.8 10*3/uL Normal 0.0-0.8 [facility] Comment on above: Performed By: #### Piedad NIEVES #### Point of Care testing , Monocytes/100 WBC (Bld) 8.9 % Normal . [facility] Comment on above: Performed By: #### Piedad PALMERLS #### Point of Care testing , Neutrophils (Bld) [#/Vol] 7.6 10*3/uL Normal 1.8-7.7 [facility] Comment on above: Performed By: #### Piedad NIEVES #### Point of Care testing , Neutrophils/100 WBC (Bld) 79.9 % Normal . [facility] Comment on above: Performed By: #### Piedad NIEVES #### Point of Care testing , NRBC% 0.3 /100{WBC} Normal 0-0.5 [facility] Comment on above: Performed By: #### Piedad NIEVES #### Point of Care testing , Platelet mean volume (Bld) [Entitic vol] 8.6 fL Normal 6.3-10.7 [facility] Comment on above: Performed By: #### Piedad NIEVES #### Point of Care testing , Platelets (Bld) [#/Vol] 173 10*3/uL Normal 150-450 [facility] Comment on above: Performed By: #### Piedad NIEVES #### Point of Care testing , RBC (Bld) [#/Vol] 2.99 10*6/uL Low 3.60-5.00 [facility] Comment on above: Performed By: #### Piedad NIEVES #### Point of Care testing , WBC (Bld) [#/Vol] 9.5 10*3/uL Normal 3.8-11.6 [facility] Comment on above: Performed By: #### Piedad NIEVES #### Point of Care testing , Comprehensive Metabolic Pane lc 09-22-2022 Albumin [Mass/Vol] 2.4 g/dL Low 3.2-5.5 [facility] Comment on above: Order Comment: RN remy lie notified AB 1601 THEY ARE STARTING A IV Performed By: #### G LULS #### Point of Care testing , Albumin/Globulin [Mass ratio] 0.7 {ratio} Normal [facility] Comment on above: Order Comment: RN remy lie notified 1601 THEY ARE STARTING A IV Performed By: #### G LULS #### Point of Care testing , ALP [Catalytic activity/Vol] 77 U/L Normal 32-92 [facility] Comment on above: Order Comment: RN remy lie notified AB 1601 THEY ARE STARTING A IV Performed By: #### G LULS #### Point of Care testing , ALT [Catalytic activity/Vol] 17 U/L Normal 10-60 [facility] Comment on above: Order Comment: ETELVINA alberto lie notified 1601 THEY ARE STARTING A IV Performed By: #### G LULS #### Point of Care testing , Anion gap [Moles/Vol] 12.6 mmol/L Normal 6.0-15.0 [facility] Comment on above: Order Comment: RN remy lie notified AB 1601 THEY ARE STARTING A IV Performed By: #### G LULS #### Point of Care testing , AST [Catalytic activity/Vol] 24 U/L Normal 10-42 [facility] Comment on above: Order Comment: ETELVINA alberto lie notified 1601 THEY ARE STARTING A IV Performed By: #### G LULS #### Point of Care testing , Bilirubin [Mass/Vol] 0.5 mg/dL Normal 0.3-1.2 [facility] Comment on above: Order Comment: RN remy lie notified 1601 THEY ARE STARTING A IV Performed By: #### G LULS #### Point of Care testing , Calcium [Mass/Vol] 7.9 mg/dL Low 8.2-10.2 [facility] Comment on above: Order Comment: ETELVINA alberto lie notified 1601 THEY ARE STARTING A IV Performed By: #### G LULS #### Point of Care testing , Chloride [Moles/Vol] 102 mmol/L Normal 95-114 [facility] Comment on above: Order Comment: ETELVINA avila notified AB 1601 THEY ARE STARTING A IV Performed By: #### G LULS #### Point of Care testing , CO2 [Moles/Vol] 20.0 mmol/L Low 22.0-30.[address] [facility] Comment on above: Order Comment: ETELVINA avila notified AB 1601 THEY ARE STARTING A IV Performed By: #### G LULS #### Point of Care testing , Creatinine [Mass/Vol] 1.03 mg/dL Normal 0.44-1.03 [facility] Comment on above: Order Comment: ETELVINA avila notified AB 1601 THEY ARE STARTING A IV Performed By: #### G LULS #### Point of Care testing , Creatinine Clr Calc Pharmacy 34.48 [facility] Comment on above: Order Comment: ETELVINA avila notified 1601 THEY ARE STARTING A IV Result Comment: PERF ORMED BY: [facility] [address] [place] [address] PATHOLOGIST [employer]BILE MARKETING SPECIALIST JUMA XIE M.D. Performed By: #### G LULS #### Point of Care testing , Estimated GFR ( Khushi > 60 [facility] Comment on above: Order Comment: ETELVINA avila notified 1601 THEY ARE STARTING A IV Result Comment: GFR estimated reference range: According to KDOQI guidelines, <60 ml/min/1.73m2 is sufficient to diagnose a patient with chronic kidney disease. Performed By: #### G LULS #### Point of Care testing , Estimated GFR (Non- Am 51 [facility] Comment on above: Order Comment: ETELVINA avila notified AB 1601 THEY ARE STARTING A IV Performed By: #### G LULS #### Point of Care testing , Globulin (S) [Mass/Vol] 3.4 g/dL [facility] Comment on above: Order Comment: ETELVINA avila notified 1601 THEY ARE STARTING A IV Performed By: #### G LULS #### Point of Care testing , Glucose [Mass/Vol] 232 mg/dL High 70-100 [facility] Comment on above: Order Comment: ETELVINA avila notified AB 1601 THEY ARE STARTING A IV Result Comment: [place] om Glucose Reference Range is dependent on time and content of last meal. Glucose of more than 200 mg/dL in a nonstressed, ambulatory subject supports the diagnosis of Diabetes Mellitus. ADA recommended reference range Performed By: #### G LULS #### Point of Care testing , Potassium [Moles/Vol] 3.6 mmol/L Normal 3.5-5.1 [facility] Comment on above: Order Comment: ETELVINA avila notified AB 1601 THEY ARE STARTING A IV Performed By: #### G LULS #### Point of Care testing , Protein [Mass/Vol] 5.8 g/dL Low 6.1-7.9 [facility] Comment on above: Order Comment: ETELVINA avila notified AB 1601 THEY ARE STARTING A IV Performed By: #### G LULS #### Point of Care testing , Sodium [Moles/Vol] 131 mmol/L Low 136-146 [facility] Comment on above: Order Comment: ETELVINA avila notified AB 1601 THEY ARE STARTING A IV Performed By: #### G LULS #### Point of Care testing , Urea nitrogen [Mass/Vol] 26 mg/dL High 9-23 [facility] Comment on above: Order Comment: ETELVINA avila notified AB 1601 THEY ARE STARTING A IV Performed By: #### G LULS #### Point of Care testing , Creatinine and Glomerular fi ltration rate.predicted panel (S/P/Bld)Ordered By: Donn Joseph on 09-22-2022 Creatinine [Mass/Vol] 1.03 mg/dL 0.44-1.03 [facility] Dipstick and Microscopicon 0 09-22-2022 Appearance (U) Cloudy Critically abnormal Clear [facility] Comment on above: Order Comment: Name Collection Type:: Richardson Catheter Performed By: #### A DDONUAPLUS, CUU #### [facility] [address] Bacteria,Urine None Seen Normal None Seen [facility] Comment on above: Order Comment: Name Collection Type:: Richardson Catheter Performed By: #### A DDONUAPLUS, CUU #### [facility] [address] [place] [address] [place] Bilirubin,Urine Negative Normal Negative [facility] Comment on above: Order Comment: Name Collection Type:: Richardson Catheter Performed By: #### A DDONUAPLUS, CUU #### [facility] [address] [place] [address] [place] Color (U) Dark Yellow Critically abnormal Yellow [facility] Comment on above: Order Comment: Name Collection Type:: Richardson Catheter Performed By: #### A DDONUAPLUS, CUU #### [place] [address] [place] Fine Granular Casts,Urine 1-2 High 0-1 [facility] Comment on above: Order Comment: Name Collection Type:: Richardson Catheter Performed By: #### A DDONUAPLUS, CUU #### [place] [address] [place] Glucose Ql (U) 500 mg/dL High Normal [facility] Comment on above: Order Comment: Name Collection Type:: Richardson Catheter Performed By: #### A DDONUAPLUS, CUU #### [place] [address] [place] Hyaline Casts,Urine 5-9 High 0-1 [facility] Comment on above: Order Comment: Name Collection Type:: Richardson Catheter Performed By: #### A DDONUAPLUS, CUU #### [facility] [address] [place] [address] [place] Ketones Ql (U) Trace High Negative [facility] Comment on above: Order Comment: Name Collection Type:: Richardson Catheter Performed By: #### A DDONUAPLUS, CUU #### [place] [address] [place] Leukocyte esterase Test strip Ql (U) 2+ High Negative [facility] Comment on above: Order Comment: Name Collection Type:: Irchardson Catheter Performed By: #### A DDONUAPLUS, CUU #### [place] [address] [place] Nitrite,Urine Negative Normal Negative [facility] Comment on above: Order Comment: Name Collection Type:: Richardson Catheter Performed By: #### A DDONUAPLUS, CUU #### [address] Occult Blood,Urine Trace High Negative [facility] Comment on above: Order Comment: Name Collection Type:: Richardson Catheter Result Comment: PERF ORMED BY: [place] [address] PATHOLOGIST MOBILE MARKETING SPECIALIST JUMA XIE M.D. Performed By: #### A DDONUAPLUS, CUU #### [address] Other Casts,Urine None Seen Normal None Seen [facility] Comment on above: Order Comment: Name Collection Type:: Richardson Catheter Performed By: #### A DDONUAPLUS, CUU #### [address] pH (U) 5.5 [pH] Normal 5.0-9.0 [facility] Comment on above: Order Comment: Name Collection Type:: Richardson Catheter Performed By: #### A DDONUAPLUS, CUU #### [address] Protein (U) [Mass/Vol] 100 mg/dL High Negative [facility] Comment on above: Order Comment: Name Collection Type:: Richardson Catheter Performed By: #### A DDONUAPLUS, CUU #### [place] [address] [place] RBC,Urine 1-2 Normal 0-4 [facility] Comment on above: Order Comment: Name Collection Type:: Richardson Catheter Performed By: #### A DDONUAPLUS, CUU #### [address] Renal Epithelial Cells,Urine None Seen Normal 0-1 [facility] Comment on above: Order Comment: Name Collection Type:: Richardson Catheter Performed By: #### A DDONUAPLUS, CUU #### [facility] [address] [place] [address] Specificy [place],Urine 1.025 Normal 1.001-1.030 [facility] Comment on above: Order Comment: Name Collection Type:: Richardson Catheter Performed By: #### A DDONUAPLUS, CUU #### [facility] [address] [place] [address] Squamous Epithelial Cell,Urine 5-9 High 0-2 [facility] Comment on above: Order Comment: Name Collection Type:: Richardson Catheter Performed By: #### A DDONUAPLUS, CUU #### [address] Urobilinogen,Urine Normal Normal Normal [facility] Comment on above: Order Comment: Name Collection Type:: Richardson Catheter Performed By: #### A DDONUAPLUS, CUU #### [address] WBC,Urine 10-19 High 0-4 [facility] Comment on above: Order Comment: Name Collection Type:: Richardson Catheter Performed By: #### A DDONUAPLUS, CUU #### [address] Yeast,Urine None Seen Normal None Seen [facility] Comment on above: Order Comment: Name Collection Type:: Richardson Catheter Result Comment: PERF ORMED BY: [place] [address] PATHOLOGIST MOBILE MARKETING SPECIALIST JUMA XIE M.D. Performed By: #### A DDONUAPLUS, CUU #### [address] Eosinophils Auto (Bld) [#/Vo l]Ordered By: Donn Joseph on 09-22-2022 Eosinophils (Bld) [#/Vol] 0.1 10*3/uL 0.0-0.45 [facility] Eosinophils/100 WBC Auto (Bl d)Ordered By: Donn Joseph on 09-22-2022 Eosinophils/100 WBC (Bld) 1.6 % . [facility] Erythrocyte distribution wid th Auto (RBC) [Ratio]Ordered By: Donn Joseph on 09-22-2022 Erythrocyte distribution width (RBC) [Ratio] 15.6 % 11.9-15.3 [facility] Estimated glomerular filtrat ion rate (GFR) non- AmericanOrdered By: Donn Joseph on 09-22-2022 GFR/1.73 sq M.predicted among non-blacks MDRD (S/P/Bld) [Vol rate/Area] 51 mL/Min [facility] Fine granular cast count in urine sediment by microscopy (number/low power field )Ordered By: Donn Joseph on 09-22-2022 Fine Granular Casts LM.LPF (Urine sed) [#/Area] 1-2 [LPF] 0-1 [facility] Globulin Calc (S) [Mass/Vol] Ordered By: Donn Joseph on 09-22-2022 Globulin (S) [Mass/Vol] 3.4 g/dL [facility] Glucose Poct Glucometerson 0 09-22-2022 Glucose [Mass/Vol] 237 mg/dL Normal [facility] Comment on above: Result Comment: [place] Glucose Reference Range is dependent on time and content of last meal. Glucose of more than 200 mg/dL in a nonstressed, ambulatory subject supports the diagnosis of Diabetes Mellitus. PERFORMED BY: [place] [address] PATHOLOGIST MOBILE MARKETING SPECIALIST JUMA XIE M.D. Performed By: #### G LULS ####Point of Care testing, Commemt1 Glu2: Cleaned Meter Normal [facility] Comment on above: Result Comment: PERF ORMED BY: [facility] [address] [place] [address] PATHOLOGIST MOBI[employer] MARKETING SPECIALIST JUMA XIE M.D. Performed By: #### G LULS #### Point of Care testing , Glucose [Mass/Vol] 231 mg/dL Normal [facility] Comment on above: Result Comment: [place] om Glucose Reference Range is dependent on time and content of last meal. Glucose of more than 200 mg/dL in a nonstressed, ambulatory subject supports the diagnosis of Diabetes Mellitus. Performed By: #### G LULS #### Point of Care testing , Glucose [Mass/Vol] 195 mg/dL Normal [facility] Comment on above: Result Comment: [facility] Glucose Reference Range is dependent on time and content of last meal. Glucose of more than 200 mg/dL in a nonstressed, ambulatory subject supports the diagnosis of Diabetes Mellitus. PERFORMED BY: [facility] [address] [facility] [address] PATHOLOGIST MOBILE MARKETING SPECIALIST JUMA XIE M.D. Performed By: #### G LULS ####Point of Care testing, Glucose [Mass/Vol] 208 mg/dL Normal [facility] Comment on above: Result Comment: [facility] Glucose Reference Range is dependent on time and content of last meal. Glucose of more than 200 mg/dL in a nonstressed, ambulatory subject supports the diagnosis of Diabetes Mellitus. PERFORMED BY: [facility] [address] [facility] [address] PATHOLOGIST MOBILE MARKETING SPECIALIST JUMA XIE M.D. Performed By: #### G LULS ####Point of Care testing, Hematocrit Auto (Bld) [Volum e fraction]Ordered By: Donn Joseph on 09-22-2022 Hematocrit (Bld) [Volume fraction] 26.5 % 34.0-46.4 [facility] Hemoglobin [Mass/volume] in BloodOrdered By: Donn Joseph on 09-22-2022 Hemoglobin (Bld) [Mass/Vol] 8.8 g/dL 11.8-15.4 [facility] Ketones Auto test strip (U) [Mass/Vol]Ordered By: Donn Joseph on 09-22-2022 Ketones (U) [Mass/Vol] Trace Negative [facility] Laboratory - Chemistry and C hemistry - challengeOrdered By: Donn Joseph on 09-22-2022 CO2 [Moles/Vol] 22.7 mmol/L 23.0-27.[address] [facility] HCO3 (Bld) [Moles/Vol] 21.8 mmol/L 23.0-29.0 [facility] Natriuretic peptide B (Bld) [Mass/Vol] 3128.0 pg/mL 5-100 [facility] Lactic Acidon 09-22-2022 Lactate [Moles/Vol] 1.0 mmol/L Normal 0.5-2.2 [facility] Comment on above: Order Comment: ETELVINA remy avila notified AB 1602 THEY ARE STARTING A IV Result Comment: PERF ORMED BY: [facility] [address] [address] PATHOLOGIST MOBI[employer] MARKETING SPECIALIST JUMA XIE M.D. Performed By: #### G LULS #### Point of Care testing , Leukocytes [#/volume] correc fern for nucleated erythrocytes in Blood by Automated counOrdered By: oDnn Joseph on 09-22-2022 WBC corrected for nucl RBC Auto (Bld) [#/Vol] 8.6 10*3/uL 3.8-11.6 [facility] Lymphocytes Auto (Bld) [#/Vo l]Ordered By: Donn Joseph on 09-22-2022 Lymphocytes (Bld) [#/Vol] 0.9 10*3/uL 1.00-4.8 [facility] Lymphocytes/100 WBC Auto (Bl d)Ordered By: Donn Joseph on 09-22-2022 Lymphocytes/100 WBC (Bld) 10.4 % . [facility] MCH Auto (RBC) [Entitic mass ]Ordered By: Donn Joseph on 09-22-2022 MCH (RBC) [Entitic mass] 30.0 pg 24.7-34.3 [facility] MCHC Auto (RBC) [Mass/Vol]Or dered By: Donn Joseph on 09-22-2022 MCHC (RBC) [Mass/Vol] 33.3 g/dL 32.0-35.0 [facility] MCV Auto (RBC) [Entitic vol] Ordered By: Donn Joseph on 09-22-2022 MCV (RBC) [Entitic vol] 89.9 fL 80-100 [facility] Monocytes Auto (Bld) [#/Vol] Ordered By: Donn Joseph on 09-22-2022 Monocytes (Bld) [#/Vol] 0.8 10*3/uL 0.0-0.8 [facility] Monocytes/100 WBC Auto (Bld) Ordered By: Donn Joseph on 09-22-2022 Monocytes/100 WBC (Bld) 9.8 % . [facility] Neutrophils Auto (Bld) [#/Vo l]Ordered By: Donn Joseph on 09-22-2022 Neutrophils (Bld) [#/Vol] 6.6 10*3/uL 1.8-7.7 [facility] Neutrophils/100 WBC Auto (Bl d)Ordered By: Donn Joseph on 09-22-2022 Neutrophils/100 WBC (Bld) 77.3 % . [facility] Nitrite Test strip Ql (U)Ord ered By: Donn Joseph on 09-22-2022 Nitrite Ql (U) Negative Negative [facility] No Panel InformationOrdered By: Donn Joseph on 09-22-2022 Arterial Blood Base Excess -0.7 mmol/L -3.0-3.0 [facility] Arterial Blood Oxygen Content 6.0 mmol/L 6.6-9.7 [facility] Arterial Blood Oxygen Saturation 93.6 % 95.0-100.0 [facility] Arterial Blood Partial Pressure CO2 28.6 mm[Hg] 35.0-45.0 [facility] Arterial Blood Partial Pressure O2 61.9 mm[Hg] 80.0-100.0 [facility] Arterial Blood pH 7.50 7.35-7.45 [facility] Blood Gas Critical Value See comment [facility] Comment on above: Critical Value pruitt d on: 09/22/2022 at 17:27 Blood Gas Sample Site Right radial F [facility] FiO2 21 % [facility] Estimated GFR () > 60 mL/Min [facility] Comment on above: GFR estimated refere nce range: According to KDOQI guidelines, <60 ml/min/1.73m2 is sufficient to diagnose a patient with chronic kidney disease. Pharmacy Creatinine Clearance (Chem 34.48 [facility] Nucleated erythrocytes [Pres ence] in Blood by Automated countOrdered By: Donn Joseph on 09-22-2022 Nucleated RBC Auto Ql (Bld) 0.1 /100{WBC} 0-0.5 [facility] Platelet mean volume Auto (B ld) [Entitic vol]Ordered By: Donn Joseph on 09-22-2022 Platelet mean volume (Bld) [Entitic vol] 8.2 fL 6.3-10.7 [facility] Platelets Auto (Bld) [#/Vol] Ordered By: Donn Joseph on 09-22-2022 Platelets (Bld) [#/Vol] 161 10*3/uL 150-450 [facility] Protein Auto test strip (U) [Mass/Vol]Ordered By: Donn Joseph on 09-22-2022 Protein (U) [Mass/Vol] 100 mg/dL Negative [facility] Protein [Mass/volume] in Ser um or PlasmaOrdered By: Donn Joseph on 09-22-2022 Protein [Mass/Vol] 5.8 g/dL 6.1-7.9 [facility] RBC Auto (Bld) [#/Vol]Ordere d By: Donn Joseph on 09-22-2022 RBC (Bld) [#/Vol] 2.94 10*6/uL 3.60-5.00 [facility] Serum or plasma alanine cox otransferase measurement without P-5'-P (enzymatic activiOrdered By: Donn Joseph on 09-22-2022 ALT No additional P-5'-P [Catalytic activity/Vol] 17 U/L 10-60 [facility] Serum or plasma albumin/glob ulin mass ratioOrdered By: Donn Joseph on 09-22-2022 Albumin/Globulin [Mass ratio] 0.7 {ratio} [facility] Serum or plasma alkaline angela sphatase measurement (enzymatic activity/volume)Ordered By: Donn Joseph on 09-22-2022 ALP [Catalytic activity/Vol] 77 U/L 32-92 [facility] Serum or plasma anion gap de terminationOrdered By: Donn Joseph on 09-22-2022 Anion gap [Moles/Vol] 12.6 mmol/L 6.0-15.0 [facility] Serum or plasma aspartate am inotransferase measurement (enzymatic activity/volume)Ordered By: Donn Joseph on 09-22-2022 AST [Catalytic activity/Vol] 24 U/L 10-42 [facility] Serum or plasma calcium terri urement (mass/volume)Ordered By: Donn Joseph on 09-22-2022 Calcium [Mass/Vol] 7.9 mg/dL 8.2-10.2 [facility] Serum or plasma chloride keny surement (moles/volume)Ordered By: Donn Joseph on 09-22-2022 Chloride [Moles/Vol] 102 mmol/L 95-114 [facility] Serum or plasma glucose terri urement (mass/volume)Ordered By: Donn Joseph on 09-22-2022 Glucose [Mass/Vol] 232 mg/dL 70-100 [facility] Comment on above: ADA recommended refe rence [...] on 09-22-2022 Sodium [Moles/Vol] 131 mmol/L 136-146 [facility] Serum or plasma total biliru bin measurement (mass/volume)Ordered By: Donn Joseph on 09-22-2022 Bilirubin [Mass/Vol] 0.5 mg/dL 0.3-1.2 [facility] Serum or plasma total carbon dioxide measurement (moles/volume)Ordered By: Donn Joseph on 09-22-2022 CO2 [Moles/Vol] 20.0 mmol/L 22.0-30.[address] [facility] Serum or plasma urea nitroge n measurement (mass/volume)Ordered By: Donn Joseph on 09-22-2022 Urea nitrogen [Mass/Vol] 26 mg/dL 9-23 [facility] Specific gravity Auto test s trip (U) [Rel density]Ordered By: Donn Joseph on 09-22-2022 Specific gravity (U) [Rel density] 1.025 1.001-1.030 [facility] Squamous epithelial cells de tection in urine sediment by light microscopyOrdered By: Donn Joseph on 09-22-2022 Epithelial cells.squamous LM Ql (Urine sed) 5-9 [HPF] 0-2 [facility] Urine Cultureon 09-22-2022 Bacteria identified Cx Nom (U) ORGANISM: Providencia rettgeri (O:PRORET) [place] Count 20,000 Aerobic LONNIE Charge (NMIC56) ----- [...] RESISTANT TO ALL B-LACTAM DRUGS. PERFORMED BY: [facility] [address] [place] [address] PATHOLOGIST MOBILE MARKETING SPECIALIST JUMA XIE M.D. Normal [facility] Comment on above: Performed By: #### A SISSY ROMERO #### [facility] [address] Urine bacteria detection by automated methodOrdered By: Donn Joseph on 09-22-2022 Bacteria Auto Ql (U) None seen None Seen [facility] Urine clarity by refractomet ry automatedOrdered By: Donn Joseph on 09-22-2022 Clarity Refractometry automated (U) Cloudy Clear [facility] Urine culture routineOrdered By: Donn Joseph on 09-22-2022 Bacteria identified Cx Nom (U) [facility] Bacteria identified Cx Nom (U) [facility] Urine glucose measurement by automated test strip (mass/volume)Ordered By: Donn Joseph on 09-22-2022 Glucose Auto test strip (U) [Mass/Vol] 500 mg/dL Normal [facility] Urine hemoglobin detection b y automated test stripOrdered By: Donn Joseph on 09-22-2022 Hemoglobin Auto test strip Ql (U) Trace Negative [facility] Urine lactic acid measuremen tOrdered By: Donn Joseph on 09-22-2022 Lactate (U) [Moles/Vol] 1.0 mmol/L 0.5-2.2 [facility] Urine leukocyte esterase det ection by automated test stripOrdered By: Donn Joseph on 09-22-2022 Leukocyte esterase Auto test strip Ql (U) 2+ Negative [facility] Urine sediment renal epithel ial cell count by microscopy (number/high power field)Ordered By: Donn Joseph on 09-22-2022 Epithelial cells.renal LM.HPF (Urine sed) [#/Area] None seen [HPF] 0-1 [facility] Urobilinogen Auto test strip (U) [Mass/Vol]Ordered By: Donn Joseph on 09-22-2022 Urobilinogen (U) [Mass/Vol] Normal mg/dL Normal [facility] WBC Auto (Bld) [#/Vol]Ordere d By: Donn Joseph on 09-22-2022 WBC (Bld) [#/Vol] 8.6 10*3/uL 3.8-11.6 [facility] XR chest 1V portableon 09-22 XR chest 1V portable [facility] Main [place] [id number] XRay Report Signed Patient: Eliz Hewitt MR#: [id number] : 1935 Acct:[id number] Age/Sex: 86 / F ADM Date: 09/19/22 Loc: 4N Room: [address] [place] [address] Type: ADM IN Attending Dr: Donn Joseph [...] Maddie Miner M.D.09/22/2022 3:55 PM Dictation Location: [place] [address] Transcribed By: [facility] 09/22/22 1555 Dictated By: Maddie Miner MD 09/22/22 1551 Signed By: 09/22/22 1555 Normal [facility] Yeast detection in urine sed iment by light microscopyOrdered By: Donn Joseph on 09-22-2022 Yeast LM Ql (Urine sed) None seen [HPF] None Seen [facility] pH Auto test strip (U)Ordere d By: Donn Joseph on 09-22-2022 pH (U) 5.5 [pH] 5.0-9.0 [facility] Basic Metabolic Panelon Anion gap [Moles/Vol] 10.9 mmol/L Normal 6.0-15.0 [facility] Comment on above: Performed By: #### B MP, CBC #### [facility] [address] Calcium [Mass/Vol] 8.2 mg/dL Normal 8.2-10.2 [facility] Comment on above: Performed By: #### B MP, CBC #### [facility] [address] Chloride [Moles/Vol] 108 mmol/L Normal 95-114 [facility] Comment on above: Performed By: #### B MP, CBC #### [address] CO2 [Moles/Vol] 20.6 mmol/L Low 22.0-30.[address] [facility] Comment on above: Performed By: #### B MP, CBC #### [address] Creatinine [Mass/Vol] 1.09 mg/dL High 0.44-1.03 [facility] Comment on above: Performed By: #### B MP, CBC #### [place] [address] [place] Creatinine Clr Calc Pharmacy 32.58 [facility] Comment on above: Result Comment: PERF ORMED BY: [place] [address] PATHOLOGIST MOBILE MARKETING SPECIALIST JUMA XIE M.D. Performed By: #### B MP, CBC #### [address] Estimated GFR ( Khushi 58 [facility] Comment on above: Result Comment: GFR estimated reference range: According to KDOQI guidelines, <60 ml/min/1.73m2 is sufficient to diagnose a patient with chronic kidney disease. Performed By: #### B MP, CBC #### [place] [address] [place] Estimated GFR (Non- Am 48 [facility] Comment on above: Performed By: #### B MP, CBC #### [place] [address] [place] Glucose [Mass/Vol] 105 mg/dL Significant change up 70-100 [facility] Comment on above: Result Comment: [place] Glucose Reference Range is dependent on time and content of last meal. Glucose of more than 200 mg/dL in a nonstressed, ambulatory subject supports the diagnosis of Diabetes Mellitus. ADA recommended reference range Performed By: #### B MP, CBC #### [facility] [address] Potassium [Moles/Vol] 3.5 mmol/L Normal 3.5-5.1 [facility] Comment on above: Performed By: #### B MP, CBC #### [address] Sodium [Moles/Vol] 136 mmol/L Normal 136-146 [facility] Comment on above: Performed By: #### B MP, CBC #### [address] Urea nitrogen [Mass/Vol] 28 mg/dL High 9- [facility] Comment on above: Performed By: #### B MP, CBC #### [address] Complete Blood Count Auto Di ffon 09-21-2022 Basophils (Bld) [#/Vol] 0.1 10*3/uL Normal 0.0-0.2 [facility] Comment on above: Result Comment: PERF ORMED BY: [place] [address] PATHOLOGIST MOBILE MARKETING SPECIALIST JUMA XIE M.D. Performed By: #### B MP, CBC #### [place] [address] [place] Basophils/100 WBC (Bld) 1.0 % Normal . [facility] Comment on above: Performed By: #### B MP, CBC #### [place] [address] [place] Eosinophils (Bld) [#/Vol] 0.1 10*3/uL Normal 0.0-0.45 [facility] Comment on above: Performed By: #### B MP, CBC #### [address] [address] [place] Eosinophils/100 WBC (Bld) 0.7 % Normal . [facility] Comment on above: Performed By: #### B MP, CBC #### [address] Erythrocyte distribution width (RBC) [Ratio] 15.7 % High 11.9-15.3 [facility] Comment on above: Performed By: #### B MP, CBC #### [address] Hematocrit (Bld) [Volume fraction] 31.3 % Low 34.0-46.4 [facility] Comment on above: Performed By: #### B MP, CBC #### [address] Hemoglobin (Bld) [Mass/Vol] 10.4 g/dL Low 11.8-15.4 [facility] Comment on above: Performed By: #### B MP, CBC #### [address] Lymphocytes (Bld) [#/Vol] 0.8 10*3/uL Low 1.00-4.8 [facility] Comment on above: Performed By: #### B MP, CBC #### [address] Lymphocytes/100 WBC (Bld) 7.7 % Normal . [facility] Comment on above: Performed By: #### B MP, CBC #### [address] MCH (RBC) [Entitic mass] 30.3 pg Normal 24.7-34.3 [facility] Comment on above: Performed By: #### B MP, CBC #### [address] MCV (RBC) [Entitic vol] 90.7 fL Normal 80-100 [facility] Comment on above: Performed By: #### B MP, CBC #### [address] Mean Corpuscular HGB Conc 33.4 g/dL Normal 32.0-35.0 [facility] Comment on above: Performed By: #### B MP, CBC #### [address] Monocytes (Bld) [#/Vol] 0.8 10*3/uL Normal 0.0-0.8 [facility] Comment on above: Performed By: #### B MP, CBC #### [address] Monocytes/100 WBC (Bld) 7.8 % Normal . [facility] Comment on above: Performed By: #### B MP, CBC #### [address] Neutrophils (Bld) [#/Vol] 8.8 10*3/uL High 1.8-7.7 [facility] Comment on above: Performed By: #### B MP, CBC #### [address] Neutrophils/100 WBC (Bld) 82.8 % Normal . [facility] Comment on above: Performed By: #### B MP, CBC #### [address] NRBC% 0.0 /100{WBC} Normal 0-0.5 [facility] Comment on above: Performed By: #### B MP, CBC #### [address] Platelet mean volume (Bld) [Entitic vol] 8.2 fL Normal 6.3-10.7 [facility] Comment on above: Performed By: #### B MP, CBC #### [address] Platelets (Bld) [#/Vol] 217 10*3/uL Normal 150-450 [facility] Comment on above: Performed By: #### B MP, CBC #### [address] RBC (Bld) [#/Vol] 3.45 10*6/uL Low 3.60-5.00 [facility] Comment on above: Performed By: #### B MP, CBC #### [address] WBC (Bld) [#/Vol] 10.7 10*3/uL Normal 3.8-11.6 [facility] Comment on above: Performed By: #### B MP, CBC #### [address] Creatine Kinaseon 09-21-2022 CK [Catalytic activity/Vol] 375 U/L High 22-269 [facility] Comment on above: Result Comment: PERF ORMED BY: [place] [address] PATHOLOGIST [employer]ET[employer] SPECIALIST JUMA XIE M.D. Performed By: #### G LULS #### Point of Care testing , Creatine kinase [Enzymatic a ctivity/volume] in Serum or PlasmaOrdered By: Dusty Singh on 09-21-2022 CK [Catalytic activity/Vol] 375 U/L 22-269 [facility] ECH echo transthoracicon ECH echo transthoracic [facility] Main [place] [address] [place] [address] Echocardiogram Signed Patient: Eliz Hewitt MR#: [id number] : 1935 Acct:[id number] Age/Sex: 86 / F ADM Date: 09/19/22 Loc: Room: [address] [place] [address] Type: DIS IN Attending Dr: Donn Joseph DO Ordering Provider: Dusty Singh MD Date of Service: 09/20/2210/12/1227 ECH/ECH echo transthoracic: syncope, murmur Copies to: MD [...] max PG (more content not included)... Normal [facility] Glucose Poct Glucometerson 0 09-21-2022 Glucose [Mass/Vol] 268 mg/dL Normal [facility] Comment on above: Result Comment: [facility] Glucose Reference Range is dependent on time and content of last meal. Glucose of more than 200 mg/dL in a nonstressed, ambulatory subject supports the diagnosis of Diabetes Mellitus. PERFORMED BY: [facility] [address] [facility] [place] [id number] PATHOLOGIST [employer]ET[employer] SPECIALIST JUMA XIE M.D. Performed By: #### G LULS #### Point of Care testing , Glucose [Mass/Vol] 276 mg/dL Normal [facility] Comment on above: Result Comment: [facility] Glucose Reference Range is dependent on time and content of last meal. Glucose of more than 200 mg/dL in a nonstressed, ambulatory subject supports the diagnosis of Diabetes Mellitus. PERFORMED BY: [facility] [address] [facility] [address] PATHOLOGIST [employer]ET[employer] SPECIALIST JUMA XIE M.D. Performed By: #### G LULS #### Point of Care testing , Glucose [Mass/Vol] 187 mg/dL Normal [facility] Comment on above: Result Comment: [facility] Glucose Reference Range is dependent on time and content of last meal. Glucose of more than 200 mg/dL in a nonstressed, ambulatory subject supports the diagnosis of Diabetes Mellitus. PERFORMED BY: [facility] [address] [facility] [address] PATHOLOGIST [employer]BI[employer] MARKET[employer] SPECIALIST JUMA XIE M.D. Performed By: #### G LULS #### Point of Care testing , Glucose [Mass/Vol] 123 mg/dL Normal [facility] Comment on above: Result Comment: [facility] Glucose Reference Range is dependent on time and content of last meal. Glucose of more than 200 mg/dL in a nonstressed, ambulatory subject supports the diagnosis of Diabetes Mellitus. PERFORMED BY: [facility] [address] [place] [address] PATHOLOGIST [employer]ET[employer] SPECIALIST JUMA XIE M.D. Performed By: #### G LULS #### Point of Care testing , Basic Metabolic Panelon -0 Anion gap [Moles/Vol] 14.6 mmol/L Normal 6.0-15.0 [facility] Comment on above: Performed By: #### G LULS #### Point of Care testing , Calcium [Mass/Vol] 8.6 mg/dL Normal 8.2-10.2 [facility] Comment on above: Performed By: #### G LULS #### Point of Care testing , Chloride [Moles/Vol] 102 mmol/L Normal 95-114 [facility] Comment on above: Performed By: #### G LULS #### Point of Care testing , CO2 [Moles/Vol] 20.1 mmol/L Low 22.0-30.[address] [facility] Comment on above: Performed By: #### G LULS #### Point of Care testing , Creatinine [Mass/Vol] 1.32 mg/dL High 0.44-1.03 [facility] Comment on above: Performed By: #### G LULS #### Point of Care testing , Creatinine Clr Calc Pharmacy 26.91 [facility] Comment on above: Result Comment: PERF ORMED BY: [facility] [address] [place] [address] PATHOLOGIST [employer]ET[employer] SPECIALIST JUMA XIE M.D. Performed By: #### G LULS #### Point of Care testing , Estimated GFR ( Khushi 46 [facility] Comment on above: Result Comment: GFR estimated reference range: According to KDOQI guidelines, <60 ml/min/1.73m2 is sufficient to diagnose a patient with chronic kidney disease. Performed By: #### G LULS #### Point of Care testing , Estimated GFR (Non- Am 38 [facility] Comment on above: Performed By: #### G LULS #### Point of Care testing , Glucose [Mass/Vol] 296 mg/dL High 70-100 [facility] Comment on above: Result Comment: [place] Glucose Reference Range is dependent on time [...] , Sodium [Moles/Vol] 133 mmol/L Low 136-146 [facility] Comment on above: Performed By: #### G LULS #### Point of Care testing , Urea nitrogen [Mass/Vol] 29 mg/dL High 9-23 [facility] Comment on above: Performed By: #### G LULS #### Point of Care testing , [facility] cervical spine wo [facility] Main [place] [address] [place] [address] CT Scan Report Signed Patient: Eliz Hewitt MR#: [id number] : 1935 Acct:[id number] Age/Sex: 86 / F ADM Date: 09/19/22 Loc: Room: [address] [place] [address] Type: ADM IN Attending Dr: Dusty Singh MD Copies to: MD Brad Luna DO Ordering Provider: Brad Harper DO Date of Service: 09/19/22 CT/CT cervical spine wo con: fall ([id number]) CT/CT facial bones wo con: fall, L periorbital ecchymosis ([id number]) CT/CT head/brain wo con: fall CT BRAIN/FACIAL [...] Vickers Jr., D.O.09/20/2022 8:41 AM Dictation Location: [place] [address] Transcribed By: [facility] 09/20/22 0841 Dictated By: Randy Vickers Jr, DO 09/20/22 0835 Signed By: 09/20/22 0841 Normal [facility] Complete Blood Count Auto Di ffon 09-20-2022 Basophils (Bld) [#/Vol] 0.1 10*3/uL Normal 0.0-0.2 [facility] Comment on above: Result Comment: PERF ORMED BY: [facility] [address] [place] [address] PATHOLOGIST [employer]ET[employer] SPECIALIST JUMA XIE M.D. Performed By: #### G EZEQUIEL #### Point of Care testing , Basophils/100 WBC (Bld) 0.9 % Normal . [facility] Comment on above: Performed By: #### G ESTELALS #### Point of Care testing , Eosinophils (Bld) [#/Vol] 0.1 10*3/uL Normal 0.0-0.45 [facility] Comment on above: Performed By: #### Piedad PALMERLS #### Point of Care testing , Eosinophils/100 WBC (Bld) 0.7 % Normal . [facility] Comment on above: Performed By: #### G ESTELALS #### Point of Care testing , Erythrocyte distribution width (RBC) [Ratio] 15.5 % High 11.9-15.3 [facility] Comment on above: Performed By: #### Piedad NIEVES #### Point of Care testing , Hematocrit (Bld) [Volume fraction] 31.0 % Low 34.0-46.4 [facility] Comment on above: Performed By: #### Piedad NIEVES #### Point of Care testing , Hemoglobin (Bld) [Mass/Vol] 10.5 g/dL Low 11.8-15.4 [facility] Comment on above: Performed By: #### Piedad NIEVES #### Point of Care testing , Lymphocytes (Bld) [#/Vol] 1.0 10*3/uL Normal 1.00-4.8 [facility] Comment on above: Performed By: #### Piedad PALMERLS #### Point of Care testing , Lymphocytes/100 WBC (Bld) 9.6 % Normal . [facility] Comment on above: Performed By: #### Piedad NIEVES #### Point of Care testing , MCH (RBC) [Entitic mass] 30.1 pg Normal 24.7-34.3 [facility] Comment on above: Performed By: #### Piedad PALMERLS #### Point of Care testing , MCV (RBC) [Entitic vol] 88.9 fL Normal 80-100 [facility] Comment on above: Performed By: #### Piedad NIEVES #### Point of Care testing , Mean Corpuscular HGB Conc 33.8 g/dL Normal 32.0-35.0 [facility] Comment on above: Performed By: #### Piedad NIEVES #### Point of Care testing , Monocytes (Bld) [#/Vol] 0.7 10*3/uL Normal 0.0-0.8 [facility] Comment on above: Performed By: #### Piedad PALMERLS #### Point of Care testing , Monocytes/100 WBC (Bld) 7.3 % Normal . [facility] Comment on above: Performed By: #### Piedad PALMERLS #### Point of Care testing , Neutrophils (Bld) [#/Vol] 8.1 10*3/uL High 1.8-7.7 [facility] Comment on above: Performed By: #### Piedad PALMERLS #### Point of Care testing , Neutrophils/100 WBC (Bld) 81.5 % Normal . [facility] Comment on above: Performed By: #### Piedad PALMERLS #### Point of Care testing , NRBC% 0.0 /100{WBC} Normal 0-0.5 [facility] Comment on above: Performed By: #### Piedad NIEVES #### Point of Care testing , Platelet mean volume (Bld) [Entitic vol] 8.1 fL Normal 6.3-10.7 [facility] Comment on above: Performed By: #### Piedad NIEVES #### Point of Care testing , Platelets (Bld) [#/Vol] 271 10*3/uL Normal 150-450 [facility] Comment on above: Performed By: #### Piedad PALMERLS #### Point of Care testing , RBC (Bld) [#/Vol] 3.49 10*6/uL Low 3.60-5.00 [facility] Comment on above: Performed By: #### Piedad PALMERLS #### Point of Care testing , WBC (Bld) [#/Vol] 10.0 10*3/uL Normal 3.8-11.6 [facility] Comment on above: Performed By: #### Piedad NIEVES #### Point of Care testing , Creatine Kinaseon 09-20-2022 CK [Catalytic activity/Vol] 634 U/L High 22-269 [facility] Comment on above: Performed By: #### G LULS #### Point of Care testing , Creatinine Kinase MBon 09-20 CK.MB [Mass/Vol] 16.8 ng/mL High 0.6-6.[address] [facility] Comment on above: Performed By: #### G LULS #### Point of Care testing , CKMB Relative Index 2.6 % High 0.00-2.50 [facility] Comment on above: Performed By: #### G LULS #### Point of Care testing , Glucose Poct Glucometerson 0 09-20-2022 Glucose [Mass/Vol] 182 mg/dL Normal [facility] Comment on above: Result Comment: [place] Glucose Reference Range is dependent on time and content of last meal. Glucose of more than 200 mg/dL in a nonstressed, ambulatory subject supports the diagnosis of Diabetes Mellitus. PERFORMED BY: [facility] [address] [place] [address] PATHOLOGIST MOBI[employer] MARKETING SPECIALIST JUMA IXE M.D. Performed By: #### G LULS ####Point of Care testing, Commemt1 Glu2: Cleaned Meter Normal [facility] Comment on above: Result Comment: PERF ORMED BY: [facility] [address] [place] [address] PATHOLOGIST MOBI[employer] MARKETING SPECIALIST JUMA XIE M.D. Performed By: #### G LULS #### Point of Care testing , Glucose [Mass/Vol] 241 mg/dL Normal [facility] Comment on above: Result Comment: [place] om Glucose Reference Range is dependent on time and content of last meal. Glucose of more than 200 mg/dL in a nonstressed, ambulatory subject supports the diagnosis of Diabetes Mellitus. Performed By: #### G LULS #### Point of Care testing , Glucose [Mass/Vol] 207 mg/dL Normal [facility] Comment on above: Result Comment: [place] om Glucose Reference Range is dependent on time and content of last meal. Glucose of more than 200 mg/dL in a nonstressed, ambulatory subject supports the diagnosis of Diabetes Mellitus. PERFORMED BY: [place] [address] [place] [address] PATHOLOGIST MOBILE MARKETING SPECIALIST JUMA XIE M.D. Performed By: #### G LULS ####Point of Care testing, Commemt1 Glu2: Cleaned Meter Normal [facility] Comment on above: Result Comment: PERF ORMED BY: [facility] [address] [place] [address] PATHOLOGIST MOBI[employer] MARKETING SPECIALIST JUMA XIE M.D. Performed By: #### G LULS #### Point of Care testing , Glucose [Mass/Vol] 313 mg/dL Normal [facility] Comment on above: Result Comment: [facility] [...] CK.MB Calc [Catalytic fraction] 2.6 % 0.00-2.50 [facility] Serum or plasma creatine kin ase MB measurement (mass/volume)Ordered By: Donn Joseph on 09-20-2022 CK.MB [Mass/Vol] 16.8 ng/mL 0.6-6.[address] [facility] Troponin I High Sensitivityo n 09-20-2022 Troponin I High Sensitivity 155 pg/mL Off scale high 0-15 [facility] Comment on above: Result Comment: Resu lts called at 0654 on 09/20/22 PERFORMED BY: [place] [address] [place] [address] PATHOLOGIST MOBI[employer] MARKETING SPECIALIST JUMA XIE M.D. Performed By: #### G LULS #### Point of Care testing , Troponin I High Sensitivity 138 pg/mL Off scale high 0-15 [facility] Comment on above: Result Comment: Results called at 0056 on 09/20/22 PERFORMED BY: [address] [place] [address] PATHOLOGIST MOBI[employer] MARKETING SPECIALIST JUMA XIE M.D. Performed By: #### G EZEQUIEL #### Point of Care testing , Troponin I.cardiac [Mass/vol ume] in Serum or Plasma by High sensitivity methodOrdered By: Donn Joseph on 09-20-2022 Troponin I.cardiac High sensitivity method [Mass/Vol] 155 pg/mL 0-15 [facility] Comment on above: Results calledat 065 4 on 09/20/22 XR ankle LT min 3V*on 2022 XR ankle LT min 3V* [facility] Main [place] [address] [place] [address] XRay Report Signed Patient: Eliz Hewitt MR#: [id number] : 1935 Acct:[id number] Age/Sex: 86 / F ADM Date: 09/19/22 Loc: Room: [address] [place] [address] Type: ADM IN Attending Dr: Dusty Singh MD Copies to: MD Malachi Luna DO Scotty J Fulton, DO Ordering Provider: Malachi Jimenez DO; Brad Harper DO Date of Service: 09/19/22 XR/XR ankle LT min 3V*: Fall ([id number]) XR/XR hip RT min 2V(w/wo pelvis)*: fall, pain, ecchymosis ([id number]) XR/XR knee LT 2V: Fall ([id number]) XR/XR chest 1V: Fall ([id number]) XR/XR hand LT min 3V*: fall, ecchymosis ([id number]) XR/XR shoulder RT min 2V*: Fall ([id number]) XR/XR hand LT min 3V*: post splinting, [...] Vickers Jr., D.O.09/20/2022 9:30 AM Dictation Location: [place] [address] Transcribed By: [facility] 09/20/22929 Dictated By: Randy Vickers Jr, DO 09/20/22922 Signed By: 09/20/22929 Normal [facility] Automated erythrocytes count in urine sediment (number/area)Ordered By: Brad Harper on 09-19-2022 RBC Auto (Urine sed) [#/Area] 5-9 [HPF] 0-4 [facility] Automated leukocytes count i n urine sediment (number/area)Ordered By: Brad Harper on 09-19-2022 WBC Auto (Urine sed) [#/Area] 1-2 [HPF] 0-4 [facility] Automated urine color determ inationOrdered By: Brad Harper on 09-19-2022 Color (U) Yellow Normal Yellow [facility] Comment on above: Order Comment: Name Collection Type:: Richardson Catheter Performed By: #### G EZEQUIEL #### Point of Care testing , Basophils Auto (Bld) [#/Vol] Ordered By: Brad Harper on 09-19-2022 Basophils (Bld) [#/Vol] 0.1 10*3/uL 0.0-0.2 [facility] Basophils/100 WBC Auto (Bld) Ordered By: Brad Harper on 09-19-2022 Basophils/100 WBC (Bld) 0.6 % . [facility] Bilirubin Test strip Ql (U)O rdered By: Brad Harper on 09-19-2022 Bilirubin Ql (U) Negative Negative [facility] Body fluid albumin measureme nt (mass/volume)Ordered By: Brad Harper on 09-19-2022 Albumin (Body fld) [Mass/Vol] 3.5 g/dL 3.2-5.5 [facility] Complete Blood Count Auto Di ffon 09-19-2022 Basophils (Bld) [#/Vol] 0.1 10*3/uL Normal 0.0-0.2 [facility] Comment on above: Result Comment: PERF ORMED BY: [facility] [address] [facility] [place] [address] PATHOLOGIST [employer]BI[employer] MARKET[employer] SPECIALIST JUMA XIE M.D. Performed By: #### L IPASE, HS TROP, CMP, CK, CBC ####[facility] [address] Basophils/100 WBC (Bld) 0.6 % Normal . [facility] Comment on above: Performed By: #### L IPASE, HS TROP, CMP, CK, CBC ####[facility] Rxv0674 [address] Eosinophils (Bld) [#/Vol] 0.0 10*3/uL Normal 0.0-0.45 [facility] Comment on above: Performed By: #### L IPASE, HS TROP, CMP, CK, CBC ####[address] Eosinophils/100 WBC (Bld) 0.1 % Normal . [facility] Comment on above: Performed By: #### L IPASE, HS TROP, CMP, CK, CBC ####[address] Erythrocyte distribution width (RBC) [Ratio] 15.5 % High 11.9-15.3 [facility] Comment on above: Performed By: #### L IPASE, HS TROP, CMP, CK, CBC ####[address] Hematocrit (Bld) [Volume fraction] 34.0 % Normal 34.0-46.4 [facility] Comment on above: Performed By: #### L IPASE, HS TROP, CMP, CK, CBC ####[address] Hemoglobin (Bld) [Mass/Vol] 11.3 g/dL Low 11.8-15.4 [facility] Comment on above: Performed By: #### L IPASE, HS TROP, CMP, CK, CBC ####[address] Lymphocytes (Bld) [#/Vol] 0.5 10*3/uL Low 1.00-4.8 [facility] Comment on above: Performed By: #### L IPASE, HS TROP, CMP, CK, CBC ####[address] Lymphocytes/100 WBC (Bld) 4.4 % Normal . [facility] Comment on above: Performed By: #### L IPASE, HS TROP, CMP, CK, CBC ####[address] MCH (RBC) [Entitic mass] 29.7 pg Normal 24.7-34.3 [facility] Comment on above: Performed By: #### L IPASE, HS TROP, CMP, CK, CBC ####[address] MCV (RBC) [Entitic vol] 89.4 fL Normal 80-100 [facility] Comment on above: Performed By: #### L IPASE, HS TROP, CMP, CK, CBC ####[address] Mean Corpuscular HGB Conc 33.2 g/dL Normal 32.0-35.0 [facility] Comment on above: Performed By: #### L IPASE, HS TROP, CMP, CK, CBC ####[address] Monocytes (Bld) [#/Vol] 0.7 10*3/uL Normal 0.0-0.8 [facility] Comment on above: Performed By: #### L IPASE, HS TROP, CMP, CK, CBC ####[address] Monocytes/100 WBC (Bld) 18.24 % Normal 0.00-20.00 [facility] Comment on above: Performed By: #### L IPASE, HS TROP, CMP, CK, CBC ####[address] Monocytes/100 WBC (Bld) 6.7 % Normal . [facility] Comment on above: Performed By: #### L IPASE, HS TROP, CMP, CK, CBC ####[address] Neutrophils (Bld) [#/Vol] 9.3 10*3/uL High 1.8-7.7 [facility] Comment on above: Performed By: #### L IPASE, HS TROP, CMP, CK, CBC ####[address] Neutrophils/100 WBC (Bld) 88.2 % Normal . [facility] Comment on above: Performed By: #### L IPASE, HS TROP, CMP, CK, CBC ####[address] [address] [place] NRBC% 0.0 /100{WBC} Normal 0-0.5 [facility] Comment on above: Performed By: #### L IPASE, HS TROP, CMP, CK, CBC ####[address] Platelet mean volume (Bld) [Entitic vol] 7.8 fL Normal 6.3-10.7 [facility] Comment on above: Performed By: #### L IPASE, HS TROP, CMP, CK, CBC ####[address] Platelets (Bld) [#/Vol] 285 10*3/uL Normal 150-450 [facility] Comment on above: Performed By: #### L IPASE, HS TROP, CMP, CK, CBC ####[address] RBC (Bld) [#/Vol] 3.81 10*6/uL Normal 3.60-5.00 [facility] Comment on above: Performed By: #### L IPASE, HS TROP, CMP, CK, CBC ####[address] WBC (Bld) [#/Vol] 10.6 10*3/uL Normal 3.8-11.6 [facility] Comment on above: Performed By: #### L IPASE, HS TROP, CMP, CK, CBC ####[address] Comprehensive Metabolic Pane lc 09-19-2022 Albumin [Mass/Vol] 3.5 g/dL Normal 3.2-5.5 [facility] Comment on above: Performed By: #### L IPASE, HS TROP, CMP, CK, CBC ####[address] Albumin/Globulin [Mass ratio] 0.9 {ratio} Normal [facility] Comment on above: Performed By: #### L IPASE, HS TROP, CMP, CK, CBC ####[address] [address] [facility] ALP [Catalytic activity/Vol] 100 U/L High 32-92 [facility] Comment on above: Performed By: #### L IPASE, HS TROP, CMP, CK, CBC ####[address] [address] [facility] ALT [Catalytic activity/Vol] 19 U/L Normal 10-60 [facility] Comment on above: Performed By: #### L IPASE, HS TROP, CMP, CK, CBC ####[place] [id number] [facility] Anion gap [Moles/Vol] 18.0 mmol/L High 6.0-15.0 [facility] Comment on above: Performed By: #### L IPASE, HS TROP, CMP, CK, CBC ####[place] [id number] [facility] AST [Catalytic activity/Vol] 44 U/L High 10-42 [facility] Comment on above: Performed By: #### L IPASE, HS TROP, CMP, CK, CBC ####[place] [id number] [facility] Bilirubin [Mass/Vol] 1.1 mg/dL Normal 0.3-1.2 [facility] Comment on above: Performed By: #### L IPASE, HS TROP, CMP, CK, CBC ####[place] [id number] [facility] Calcium [Mass/Vol] 9.0 mg/dL Normal 8.2-10.2 [facility] Comment on above: Performed By: #### L IPASE, HS TROP, CMP, CK, CBC ####[place] [id number] [facility] Chloride [Moles/Vol] 99 mmol/L Normal 95-114 [facility] Comment on above: Performed By: #### L IPASE, HS TROP, CMP, CK, CBC ####[place] [id number] [facility] CO2 [Moles/Vol] 20.8 mmol/L Low 22.0-30.[address] [facility] Comment on above: Performed By: #### L IPASE, HS TROP, CMP, CK, CBC ####[place] [id number] [facility] Creatinine [Mass/Vol] 1.09 mg/dL High 0.44-1.03 [facility] Comment on above: Performed By: #### L IPASE, HS TROP, CMP, CK, CBC ####[place] [id number] [facility] Creatinine Clr Calc Pharmacy 30.82 [facility] Comment on above: Performed By: #### L IPASE, HS TROP, CMP, CK, CBC ####[place] [id number] [facility] Estimated GFR ( Khushi 58 [facility] Comment on above: Result Comment: GFR estimated reference range: According to KDOQI guidelines, <60 ml/min/1.73m2 is sufficient to diagnose a patient with chronic kidney disease. Performed By: #### L IPASE, HS TROP, CMP, CK, CBC ####[place] [id number] [facility] Estimated GFR (Non- Am 48 [facility] Comment on above: Performed By: #### L IPASE, HS TROP, CMP, CK, CBC ####[place] [id number] [facility] Globulin (S) [Mass/Vol] 4.1 g/dL [facility] Comment on above: Performed By: #### L IPASE, HS TROP, CMP, CK, CBC ####[place] [id number] [facility] Glucose [Mass/Vol] 348 mg/dL High 70-100 [facility] Comment on above: Result Comment: [place] Glucose Reference Range is dependent on time and content of last meal. Glucose of more than 200 mg/dL in a nonstressed, ambulatory subject supports the diagnosis of Diabetes Mellitus. ADA recommended reference range Performed By: #### L IPASE, HS TROP, CMP, CK, CBC ####[address] Potassium [Moles/Vol] 3.8 mmol/L Normal 3.5-5.1 [facility] Comment on above: Performed By: #### L IPASE, HS TROP, CMP, CK, CBC ####[place] [id number] [facility] Protein [Mass/Vol] 7.6 g/dL Normal 6.1-7.9 [facility] Comment on above: Performed By: #### L IPASE, HS TROP, CMP, CK, CBC ####[address] Sodium [Moles/Vol] 134 mmol/L Low 136-146 [facility] Comment on above: Performed By: #### L IPASE, HS TROP, CMP, CK, CBC ####[address] Urea nitrogen [Mass/Vol] 23 mg/dL Normal 9-23 [facility] Comment on above: Performed By: #### L IPASE, HS TROP, CMP, CK, CBC ####[address] Creatine Kinaseon 09-19-2022 CK [Catalytic activity/Vol] 745 U/L High [facility] Comment on above: Performed By: #### L IPASE, HS TROP, CMP, CK, CBC ####[address] Creatine kinase [Enzymatic a ctivity/volume] in Serum or PlasmaOrdered By: Brad Harper on 09-19-2022 CK [Catalytic activity/Vol] 745 U/L [facility] Creatinine and Glomerular fi ltration rate.predicted panel (S/P/Bld)Ordered By: Brad Harper on 09-19-2022 Creatinine [Mass/Vol] 1.09 mg/dL 0.44-1.03 [facility] Dipstick and Microscopicon 1 Appearance (U) Clear Normal Clear [facility] Comment on above: Order Comment: Name Collection Type:: Richardson Catheter Performed By: #### G LULS #### Point of Care testing , Bacteria,Urine None Seen Normal None Seen [facility] Comment on above: Order Comment: Name Collection Type:: Richardson Catheter Performed By: #### G LULS #### Point of Care testing , Bilirubin,Urine Negative Normal Negative [facility] Comment on above: Order Comment: Name Collection Type:: Richardson Catheter Performed By: #### G LULS #### Point of Care testing , Glucose Ql (U) >=1000 High Normal [facility] Comment on above: Order Comment: Name Collection Type:: Richardson Catheter Performed By: #### G LULS #### Point of Care testing , Hyaline Casts,Urine 0-8 Normal 0-8 [facility] Comment on above: Order Comment: Name Collection Type:: Richardson Catheter Result Comment: PERF ORMED BY: [address] [place] [address] PATHOLOGIST [employer]IST JUMA XIE M.D. Performed By: #### G LULS #### Point of Care testing , Ketones Ql (U) 1+ High Negative [facility] Comment on above: Order Comment: Name Collection Type:: Richardson Catheter Performed By: #### G LULS #### Point of Care testing , Leukocyte esterase Test strip Ql (U) Negative Normal Negative [facility] Comment on above: Order Comment: Name Collection Type:: Richardson Catheter Performed By: #### G LULS #### Point of Care testing , Nitrite,Urine Negative Normal Negative [facility] Comment on above: Order Comment: Name Collection Type:: Richardson Catheter Performed By: #### G LULS #### Point of Care testing , Occult Blood,Urine 2+ High Negative [facility] Comment on above: Order Comment: Name Collection Type:: Richardson Catheter Result Comment: PERF ORMED BY: [address] [place] [address] PATHOLOGIST [employer] SPECIALIST JUMA XIE M.D. Performed By: #### G LULS #### Point of Care testing , RBC,Urine 5-9 High 0-4 [facility] Comment on above: Order Comment: Name Collection Type:: Richardson Catheter Performed By: #### G LULS #### Point of Care testing , Specificy [place],Urine 1.026 Normal 1.001-1.030 [facility] Comment on above: Order Comment: Name Collection Type:: Richardson Catheter Performed By: #### G LULS #### Point of Care testing , Squamous Epithelial Cell,Urine 0-1 Normal 0-2 [facility] Comment on above: Order Comment: Name Collection Type:: Richardson Catheter Performed By: #### G LULS #### Point of Care testing , Urobilinogen,Urine Normal Normal Normal [facility] Comment on above: Order Comment: Name Collection Type:: Richardson Catheter Performed By: #### G LULS #### Point of Care testing , WBC,Urine 1-2 Normal 0-4 [facility] Comment on above: Order Comment: Name Collection Type:: Richardson Catheter Performed By: #### G LULS #### Point of Care testing , ECG 12 lead ECGon 09-19-2022 ECG 12 lead ECG [facility] [place] [address] Electrocardiograph Report Signed Patient: Eliz Hewitt MR#: [id number] : 1935 Acct:[id number] Age/Sex: 86 / F ADM Date: 09/19/22 Loc: Room: [address] [place] [address] Type: DIS IN Attending Dr: Donn Joseph [...] ECGs available Confirmed by Brad Harper DO ([id number]) on 09/19/2022 10:01:59 PM Referred By: Electronically Signed By:Brad Harper DO Transcribed By: MUS Signed By Brad Harper DO 09/19 Normal [facility] Eosinophils Auto (Bld) [#/Vo l]Ordered By: Brad Harper on 09-19-2022 Eosinophils (Bld) [#/Vol] 0.0 10*3/uL 0.0-0.45 [facility] Eosinophils/100 WBC Auto (Bl d)Ordered By: Brad Harper on 09-19-2022 Eosinophils/100 WBC (Bld) 0.1 % . [facility] Erythrocyte distribution wid th Auto (RBC) [Ratio]Ordered By: Brad Harper on 09-19-2022 Erythrocyte distribution width (RBC) [Ratio] 15.5 % 11.9-15.3 [facility] Estimated glomerular filtrat ion rate (GFR) non- AmericanOrdered By: Brad Harper on 09-19-2022 GFR/1.73 sq M.predicted among non-blacks MDRD (S/P/Bld) [Vol rate/Area] 48 mL/Min [facility] Globulin Calc (S) [Mass/Vol] Ordered By: Brad Harper on 09-19-2022 Globulin (S) [Mass/Vol] 4.1 g/dL [facility] Hematocrit Auto (Bld) [Volum e fraction]Ordered By: Brad Harper on 09-19-2022 Hematocrit (Bld) [Volume fraction] 34.0 % 34.0-46.4 [facility] Hemoglobin [Mass/volume] in BloodOrdered By: Brad Harper on 09-19-2022 Hemoglobin (Bld) [Mass/Vol] 11.3 g/dL 11.8-15.4 [facility] Ketones Auto test strip (U) [Mass/Vol]Ordered By: Brad Harper on 09-19-2022 Ketones (U) [Mass/Vol] 1+ Negative Fi [facility] Laboratory - Chemistry and C hemistry - challengeOrdered By: Brad Harper on 09-19-2022 Lipase [Catalytic activity/Vol] 26.0 U/L [facility] Laboratory - UrinalysisOrder ed By: Brad Harper on 09-19-2022 Hyaline casts LM Ql (Urine sed) 0-8 [LPF] 0-8 [facility] Leukocytes [#/volume] correc fern for nucleated erythrocytes in Blood by Automated counOrdered By: Brad Harper on 09-19-2022 WBC corrected for nucl RBC Auto (Bld) [#/Vol] 10.6 10*3/uL 3.8-11.6 [facility] Lipaseon 09-19-2022 Lipase [Catalytic activity/Vol] 26.0 U/L Normal [facility] Comment on above: Result Comment: PERF ORMED BY: [facility] [address] [place] [address] PATHOLOGIST [employer]IST JUMA XIE M.D. Performed By: #### L IPASE, HS TROP, CMP, CK, CBC ####[facility] [id number] Lymphocytes Auto (Bld) [#/Vo l]Ordered By: Brad Harper on 09-19-2022 Lymphocytes (Bld) [#/Vol] 0.5 10*3/uL 1.00-4.8 [facility] Lymphocytes/100 WBC Auto (Bl d)Ordered By: Brad Harper on 09-19-2022 Lymphocytes/100 WBC (Bld) 4.4 % . [facility] MCH Auto (RBC) [Entitic mass ]Ordered By: Brad Harper on 09-19-2022 MCH (RBC) [Entitic mass] 29.7 pg 24.7-34.3 [facility] MCHC Auto (RBC) [Mass/Vol]Or dered By: Brad Harper on 09-19-2022 MCHC (RBC) [Mass/Vol] 33.2 g/dL 32.0-35.0 [facility] MCV Auto (RBC) [Entitic vol] Ordered By: Brad Harper on 09-19-2022 MCV (RBC) [Entitic vol] 89.4 fL 80-100 [facility] Monocyte distribution width [Entitic volume] in Blood by AutomatedOrdered By: Brad Harper on 09-19-2022 Monocyte distribution width Auto (Bld) [Entitic vol] 18.24 % 0.00-20.00 [facility] Monocytes Auto (Bld) [#/Vol] Ordered By: Brad Harper on 09-19-2022 Monocytes (Bld) [#/Vol] 0.7 10*3/uL 0.0-0.8 [facility] Monocytes/100 WBC Auto (Bld) Ordered By: Brad Harper on 09-19-2022 Monocytes/100 WBC (Bld) 6.7 % . [facility] Neutrophils Auto (Bld) [#/Vo l]Ordered By: Brad Harper on 09-19-2022 Neutrophils (Bld) [#/Vol] 9.3 10*3/uL 1.8-7.7 [facility] Neutrophils/100 WBC Auto (Bl d)Ordered By: Brad Harper on 09-19-2022 Neutrophils/100 WBC (Bld) 88.2 % . [facility] Nitrite Test strip Ql (U)Ord ered By: Brad Harper on 09-19-2022 Nitrite Ql (U) Negative Negative [facility] No Panel InformationOrdered By: Brad Harper on 09-19-2022 Estimated GFR () 58 mL/Min [facility] Comment on above: GFR estimated refere nce range: According to KDOQI guidelines, <60 ml/min/1.73m2 is sufficient to diagnose a patient with chronic kidney disease. Pharmacy Creatinine Clearance (Chem 30.82 [facility] Nucleated erythrocytes [Pres ence] in Blood by Automated countOrdered By: Brad Harper on 09-19-2022 Nucleated RBC Auto Ql (Bld) 0.0 /100{WBC} 0-0.5 [facility] Platelet mean volume Auto (B ld) [Entitic vol]Ordered By: Brad Harper on 09-19-2022 Platelet mean volume (Bld) [Entitic vol] 7.8 fL 6.3-10.7 [facility] Platelets Auto (Bld) [#/Vol] Ordered By: Brad Harper on 09-19-2022 Platelets (Bld) [#/Vol] 285 10*3/uL 150-450 [facility] Protein [Mass/volume] in Ser um or PlasmaOrdered By: Brad Harper on 09-19-2022 Protein [Mass/Vol] 7.6 g/dL 6.1-7.9 [facility] RBC Auto (Bld) [#/Vol]Ordere d By: Brad Harper on 09-19-2022 RBC (Bld) [#/Vol] 3.81 10*6/uL 3.60-5.00 [facility] Serum or plasma alanine cox otransferase measurement without P-5'-P (enzymatic activiOrdered By: Brad Harper on 09-19-2022 ALT No additional P-5'-P [Catalytic activity/Vol] 19 U/L 1060 [facility] Serum or plasma albumin/glob ulin mass ratioOrdered By: Brad Harpre on 09-19-2022 Albumin/Globulin [Mass ratio] 0.9 {ratio} [facility] Serum or plasma alkaline angela sphatase measurement (enzymatic activity/volume)Ordered By: Brad Harper on 09-19-2022 ALP [Catalytic activity/Vol] 100 U/L 32 [facility] Serum or plasma anion gap de terminationOrdered By: Brad Harper on 09-19-2022 Anion gap [Moles/Vol] 18.0 mmol/L 6.0-15.0 [facility] Serum or plasma aspartate am inotransferase measurement (enzymatic activity/volume)Ordered By: Brad Harper on 09-19-2022 AST [Catalytic activity/Vol] 44 U/L 10 [facility] Serum or plasma calcium terri urement (mass/volume)Ordered By: Brad Harper on 09-19-2022 Calcium [Mass/Vol] 9.0 mg/dL 8.2-10.2 [facility] Serum or plasma chloride keny surement (moles/volume)Ordered By: Brad Harper on 09-19-2022 Chloride [Moles/Vol] 99 mmol/L 95-114 [facility] Serum or plasma glucose terri urement (mass/volume)Ordered By: Brad Harper on 09-19-2022 Glucose [Mass/Vol] 348 mg/dL 70-100 [facility] Comment on above: ADA recommended refe rence [...] on 09-19-2022 Sodium [Moles/Vol] 134 mmol/L 136-146 [facility] Serum or plasma total biliru bin measurement (mass/volume)Ordered By: Brad Harper on 09-19-2022 Bilirubin [Mass/Vol] 1.1 mg/dL 0.3-1.2 [facility] Serum or plasma total carbon dioxide measurement (moles/volume)Ordered By: Brad Harper on 09-19-2022 CO2 [Moles/Vol] 20.8 mmol/L 22.0-30.[address] [facility] Serum or plasma urea nitroge n measurement (mass/volume)Ordered By: Brad Harper on 09-19-2022 Urea nitrogen [Mass/Vol] 23 mg/dL 9-23 [facility] Specific gravity Auto test s trip (U) [Rel density]Ordered By: Brad Harper on 09-19-2022 Specific gravity (U) [Rel density] 1.026 1.001-1.030 [facility] Squamous epithelial cells de tection in urine sediment by light microscopyOrdered By: Brad Harper on 09-19-2022 Epithelial cells.squamous LM Ql (Urine sed) 0-1 [HPF] 0-2 [facility] Troponin I High Sensitivityo n 09-19-2022 Troponin I High Sensitivity 134 pg/mL Off scale high 0-15 [facility] Comment on above: Result Comment: Crit ical value result called at 2210 on 09/19/22 PERFORMED BY: [facility] [address] [place] [address] PATHOLOGIST [employer]IST JUMA XIE M.D. Performed By: #### L IPASE, HS TROP, CMP, CK, CBC ####[facility] [id number] [place] [id number] [facility] Troponin I.cardiac [Mass/vol ume] in Serum or Plasma by High sensitivity methodOrdered By: Brad Harper on 09-19-2022 Troponin I.cardiac High sensitivity method [Mass/Vol] 138 pg/mL 0-15 [facility] Comment on above: Results calledat 005 6 on 09/20/22 Urine Cultureon 09-19-2022 Bacteria identified Cx Nom (U) 15,000 colonies/ml mixed bacterial skin contaminants 2 Days PERFORMED BY: [facility] [address] [place] [id number] PATHOLOGIST [employer] SPECIALIST JUMA XIE M.D. Normal [facility] Comment on above: Performed By: #### G LUPOLI #### Point of Care testing , Urine bacteria detection by automated methodOrdered By: rBad Harper on 09-19-2022 Bacteria Auto Ql (U) None seen None Seen [facility] Urine clarity by refractomet ry automatedOrdered By: Brad Harper on 09-19-2022 Clarity Refractometry automated (U) Clear Clear [facility] Urine glucose measurement by automated test strip (mass/volume)Ordered By: Brad Harper on 09-19-2022 Glucose Auto test strip (U) [Mass/Vol] >=1000 mg/dL Normal [facility] Urine hemoglobin detection b y automated test stripOrdered By: Brad Harper on 09-19-2022 Hemoglobin Auto test strip Ql (U) 2+ Negative [facility] Urine leukocyte esterase det ection by automated test stripOrdered By: Brad Harper on 09-19-2022 Leukocyte esterase Auto test strip Ql (U) Negative Negative [facility] Urine pH measurement by auto mated test stripOrdered By: Brad Harper on 09-19-2022 pH (U) 6.5 [pH] Normal 5.0-9.0 [facility] Comment on above: Order Comment: Name Collection Type:: Richardson Catheter Performed By: #### G EZEQUIEL #### Point of Care testing , Urine protein measurement by automated test strip (mass/volume)Ordered By: Brad Harper on 09-19-2022 Protein (U) [Mass/Vol] 300 mg/dL High Negative [facility] Comment on above: Order Comment: Name Collection Type:: Richardson Catheter Performed By: #### G EZEQUIEL #### Point of Care testing , Urobilinogen Auto test strip (U) [Mass/Vol]Ordered By: Brad Harper on 09-19-2022 Urobilinogen (U) [Mass/Vol] Normal mg/dL Normal [facility] WBC Auto (Bld) [#/Vol]Ordere d By: Brad Harper on 09-19-2022 WBC (Bld) [#/Vol] 10.6 10*3/uL 3.8-11.6 [facility] CBC AUTO DIFFon 09-08-2022 BASO # 0.1 103/ul Normal 0.0-0.1 [facility] Comment on above: Performed By: #### C BC #### [facility] [address] [place] [address] [address] Adan Rinaldi Basophils/100 WBC (Bld) 0.8 % Normal 0.2-2.0 [facility] Comment on above: Performed By: #### C BC #### [facility] [address] [place] [address] Dr. Adan Rinaldi EO # 0.4 103/ul Normal 0.0-0.7 [facility] Comment on above: Performed By: #### C BC #### [facility] [address] [place] [address] [address] Adan Rinaldi Eosinophils/100 WBC (Bld) 5.8 % Normal 0.9-7.0 [facility] Comment on above: Performed By: #### C BC #### [facility] [address] [place] [address] Dr. Adan Rinaldi Erythrocyte distribution width (RBC) [Ratio] 14.4 % Normal 11.0-15.0 [facility] Comment on above: Performed By: #### C BC #### [facility] [address] [address] [address] Adan Rinaldi Hematocrit (Bld) [Volume fraction] 28.5 % Critically low 36.0-48.0 [facility] Comment on above: Performed By: #### C BC #### [facility] [address] [address] [address] Adan Rinaldi Hemoglobin (Bld) [Mass/Vol] 9.3 g/dL Critically low 12.0-16.0 [facility] Comment on above: Performed By: #### C BC #### [facility] [address] [place] [address] [address] Adan Rinaldi IG # 0.02 10e3/ul Normal 0.00-0.03 [facility] Comment on above: Performed By: #### C BC #### [facility] [address] [place] [address] Dr. Adan Rinaldi IG % 0.3 % Normal 0.0-0.5 [facility] Comment on above: Performed By: #### C BC #### [facility] [address] [place] [address] Dr. Adan Rinaldi LYMPH # 1.0 103/ul Critically low 1.2-3.8 [facility] Comment on above: Performed By: #### C BC #### [facility] [address] [place] [address] Dr. Adan Rinaldi Lymphocytes/100 WBC (Bld) 13.9 % Critically low 20.5-60.0 [facility] Comment on above: Performed By: #### C BC #### [facility] [address] [place] [address] Dr. Adan Rinaldi MANUAL DIFF REQ NO Normal [facility] Comment on above: Performed By: #### C BC #### [facility] [address] [place] [address] Dr. Adan Rinaldi MCH (RBC) [Entitic mass] 29.3 pg Normal 26.7-34.0 [facility] Comment on above: Performed By: #### C BC #### [facility] [address] [place] [address] Dr. Adan Rinaldi MCHC (RBC) [Mass/Vol] 32.6 g/dL Normal 29.9-35.2 [facility] Comment on above: Performed By: #### C BC #### [facility] [address] [place] [address] Dr. Adan Rinaldi MCV (RBC) [Entitic vol] 89.9 fL Normal 81.0-99.0 [facility] Comment on above: Performed By: #### C BC #### [facility] [address] [place] [address] Dr. Adan Rinaldi MONO # 0.8 103/ul Normal 0.3-0.8 [facility] Comment on above: Performed By: #### C BC #### [facility] [address] [place] [address] Dr. Adan Rinaldi Monocytes/100 WBC (Bld) 10.5 % Normal 1.7-12.0 [facility] Comment on above: Performed By: #### C BC #### [facility] [address] [place] [address] Dr. Adan Rinaldi NEUT # 5.1 103/ul Normal 1.4-6.5 [facility] Comment on above: Performed By: #### C BC #### [facility] [address] [place] [address] Dr. Adan Rinaldi Neutrophils/100 WBC (Bld) 68.7 % Normal 43.0-75.0 [facility] Comment on above: Performed By: #### C BC #### [facility] [address] [place] [address] Dr. Adan Rinaldi Platelet mean volume (Bld) [Entitic vol] 10.0 fL Normal 9.5-13.5 [facility] Comment on above: Performed By: #### C BC #### [facility] [address] [place] [address] Dr. Adan Rinaldi PLT 271 103/ul Normal 150-450 [facility] Comment on above: Performed By: #### C BC #### [facility] [address] [place] [address] Dr. Adan Rinaldi RBC 3.17 106/ul Critically low 4.20-5.40 [facility] Comment on above: Performed By: #### C BC #### [facility] [address] [address] [address] Adan Rinaldi WBC 7.4 103/ul Normal 4.0-11.0 [facility] Comment on above: Performed By: #### C BC #### [facility] [address] [address] [address] Adan Rinaldi PROF CHEM 8 (BAS METB)on Anion gap [Moles/Vol] 14.3 mmol/L Normal [facility] Comment on above: Performed By: #### C BC #### [facility] [address] [address] [address] Adan Rinaldi Calcium [Mass/Vol] 8.8 mg/dL Normal 8.5-10.1 [facility] Comment on above: Performed By: #### C BC #### [facility] [address] [address] [address] Adan Rinaldi Chloride [Moles/Vol] 98 mmol/L Normal 98-107 [facility] Comment on above: Performed By: #### C BC #### [facility] [address] [address] [address] Adan Rinaldi CO2 [Moles/Vol] 29.3 mmol/L Normal 21.0-32.0 [facility] Comment on above: Performed By: #### C BC #### [facility] [address] [address] [address] Adan Rinaldi Creatinine [Mass/Vol] 1.41 mg/dL Critically high 0.55-1.02 [facility] Comment on above: Performed By: #### C BC #### [facility] [address] [place] [address] Dr. Adan Rinaldi EGFR-AF TOGOLESE 43 mL/min/1.73m2 Critically low >=60 [facility] Comment on above: Performed By: #### C BC #### [facility] [address] [address] [address] Adan Rinaldi EGFR-NON AF TOGOLESE 35 mL/min/1.73m2 Critically low >=60 [facility] Comment on above: Performed By: #### C BC #### [facility] [address] [address] [address] Adan Rinaldi Glucose [Mass/Vol] 254 mg/dL Critically high 74-106 [facility] Comment on above: Performed By: #### C BC #### [facility] [address] [address] [address] Adan Rinaldi Potassium [Moles/Vol] 4.6 mmol/L Normal 3.5-5.1 [facility] Comment on above: Performed By: #### C BC #### [facility] [address] [address] [address] Adan Rinaldi Sodium [Moles/Vol] 137 mmol/L Normal 136-145 [facility] Comment on above: Performed By: #### C BC #### [facility] [address] [address] [address] Adan Rinaldi Urea nitrogen [Mass/Vol] 30.0 mg/dL Critically high 7.0-18.0 [facility] Comment on above: Performed By: #### C BC #### [facility] [address] [address] [address] Adan Rinaldi Urea nitrogen/Creatinine [Mass ratio] 21.3 mg/mg Normal [facility] Comment on above: Performed By: #### C BC #### [facility] [address] [address] [address] 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 He is following up from the ED Resident Consult. Patient was seen in ED/Admitted on 09/03/22. She was seen by Dental Resident Dr. Mccall. The resident recommended: patient has been advised to come to [facility] for comprehensive evaluation and treatment of teeth #5-#8. There are no appointments that [facility] can schedule into. Please reach out to Alek to assist with scheduling. Normal [facility] [employer] [facility] BASIC METABOLIC PANELon 12- Anion gap [Moles/Vol] 15 mmol/L Normal 10-20 [facility] Comment on above: Performed By: #### C H8 #### [facility] [address] [place] [address], Calcium [Mass/Vol] 8.3 mg/dL Low 8.4-10.4 [facility] Comment on above: Performed By: #### C H8 #### S [facility] LABORAT[facility] [address] [place] [address], Chloride [Moles/Vol] 101 mmol/L Normal 97-111 [facility] Comment on above: Performed By: #### C H8 #### [facility] [address] [place] [address], CO2 [Moles/Vol] 25 mmol/L Normal 21-30 [facility] Comment on above: Performed By: #### C H8 #### [facility] [address] [place] [address], Creatinine [Mass/Vol] 1.47 mg/dL High 0.50-1.10 [facility] Comment on above: Performed By: #### C H8 #### [facility] [address] [place] [address], ESTIMATED GFR (CKD-EPI) 35 mL/min/1.73sqm Low >=60 [facility] Comment on above: Result Comment: 2020 [...] Inclusion of Race in Diagnosing Kidney Disease. [place] Journal of Kidney Diseases 2021;79(2):268-88.e1. 2. N Engl J Med 2020 Vol. 385 Issue 19 Pages 4697-2604 Performed By: #### C H8 #### [facility] [address] [place], [place], Glucose [Mass/Vol] 258 mg/dL High 80-116 [facility] Comment on above: Performed By: #### C H8 #### [facility] [address], [place], Potassium [Moles/Vol] 4.4 mmol/L Normal 3.3-5.3 [facility] Comment on above: Performed By: #### C H8 #### [facility] [address] [place], [place], Sodium [Moles/Vol] 137 mmol/L Normal 135-148 [facility] Comment on above: Performed By: #### C H8 #### [facility] [address] [place], [place], Urea nitrogen [Mass/Vol] 38 mg/dL High 8-22 [facility] Comment on above: Performed By: #### C H8 #### S [facility] LAB[facility] [address], [place], Basic metabolic 2000 panelon 09-05-2022 Anion gap [Moles/Vol] 15 mmol/L 10 - 20 [facility] Calcium [Mass/Vol] 8.3 mg/dL Low 8.4 - [...] Inclusion of Race in Diagnosing Kidney Disease. [place] Journal of Kidney Diseases 2022;79(2):268-88.e1. 2. N Engl J Med 2020 Vol. 385 Issue 19 Pages 3781-4471 Glucose [Mass/Vol] 258 mg/dL High 80 - 116 mg/dL [facility] Interpretation and review of laboratory results Abnormal [facility] Potassium [Moles/Vol] 4.4 mmol/L 3.3 - 5.3 mmol/L [facility] Sodium [Moles/Vol] 137 mmol/L 135 - 148 mmol/L [facility] Urea nitrogen [Mass/Vol] 38 mg/dL High 8 - 22 mg/dL [employer] CBC WITH DIFFERENTIALon 08-20 Basophils (Bld) [#/Vol] 0.08 10*3/uL Normal 0.00-0.20 [facility] Comment on above: Performed By: #### A PTT, PT #### [facility] [address] [place] [address], Basophils/100 WBC (Bld) 1.0 % Normal <=1.9 [facility] Comment on above: Performed By: #### A PTT, PT #### [facility] [address] [place] [address], Eosinophils (Bld) [#/Vol] 0.23 10*3/uL Normal 0.00-0.70 [facility] Comment on above: Performed By: #### A PTT, PT #### [facility] [address] [place] [address], Eosinophils/100 WBC (Bld) 2.7 % Normal 0.1-4.0 [facility] Comment on above: Performed By: #### A PTT, PT #### [facility] [address] [place] [address], Erythrocyte distribution width (RBC) [Ratio] 15.3 % High 11.5-14.5 [facility] Comment on above: Performed By: #### A PTT, PT #### [facility] [address] [place] [address], Hematocrit (Bld) [Volume fraction] 27.4 % Low 36.0-46.0 [facility] Comment on above: Performed By: #### A PTT, PT #### [facility] [address] [place] [address], Hemoglobin (Bld) [Mass/Vol] 9.2 g/dL Low 12.0-15.0 [facility] Comment on above: Performed By: #### A PTT, PT #### [facility] [address] [place] [address], Lymphocytes (Bld) [#/Vol] 0.86 10*3/uL Low 1.00-4.80 [facility] Comment on above: Performed By: #### A PTT, PT #### [facility] [address] [place] [address], Lymphocytes/100 WBC (Bld) 9.9 % Low 24.0-44.0 [facility] Comment on above: Performed By: #### A PTT, PT #### [facility] [address] [place] [address], MCH (RBC) [Entitic mass] 30.0 pg Normal 26.0-34.0 [facility] Comment on above: Performed By: #### A PTT, PT #### [facility] [address] [place] [address], MCHC (RBC) [Mass/Vol] 33.7 g/dL Normal 32.0-35.9 [facility] Comment on above: Performed By: #### A PTT, PT #### [facility] [address] [place] [address], MCV (RBC) [Entitic vol] 89 fL Normal 80-100 [facility] Comment on above: Performed By: #### A PTT, PT #### [facility] [address] [place] [address], MONOCYTE DISTRIBUTION WIDTH 22 High <=20 [facility] Comment on above: Performed By: #### A PTT, PT #### [facility] [address] [place] [address], Monocytes (Bld) [#/Vol] 0.69 10*3/uL Normal 0.20-1.00 [facility] Comment on above: Performed By: #### A PTT, PT #### [facility] [address], [place], Monocytes/100 WBC (Bld) 7.9 % Normal 2.0-11.0 [facility] Comment on above: Performed By: #### A PTT, PT #### [facility] [address], [place], Neutrophils (Bld) [#/Vol] 6.86 10*3/uL Normal 1.50-8.00 [facility] Comment on above: Performed By: #### A PTT, PT #### [facility] [address], [place], Neutrophils/100 WBC (Bld) 78.6 % High 31.0-76.0 [facility] Comment on above: Performed By: #### A PTT, PT #### [facility] [address], [place], Platelet mean volume (Bld) [Entitic vol] 8.0 fL Normal 7.5-11.2 [facility] Comment on above: Performed By: #### A PTT, PT #### [facility] [address], [place], Platelets (Bld) [#/Vol] 192 10*3/uL Normal 150-400 [facility] Comment on above: Performed By: #### A PTT, PT #### [facility] [address], [place], RBC (Bld) [#/Vol] 3.08 10*6/uL Low 4.00-5.20 [facility] Comment on above: Performed By: #### A PTT, PT #### [facility] [address], [place], WBC (Bld) [#/Vol] 8.7 10*3/uL Normal 4.5-11.5 [facility] Comment on above: Performed By: #### A PTT, PT #### [facility] [address], [place], Basophils (Bld) [#/Vol] 0.08 10*3/uL 0.00 [...] [facility] RBC (Bld) [#/Vol] 3.08 10*6/uL Low [facility] WBC (Bld) [#/Vol] 8.7 10*3/uL 4.5 - 11.5 K/uL [facility] Care Plan Noteon 09-05-2022 Engine Lathe Set Up Operator Authentication Interface Message Text Request by Trauma Service to coordinate C request for Ms Hewitt. Review of Epic / Care Everywhere, has PCP in [facility] but does not have a current visit within the last 90 days. Today is Wednesday, Sep 05, 2022 Dr Yoko Helms is PCP Ph [phone] Fx Discharge summary HHC order PT eval OT eval Cardiology Consult Will be faxed to PCP office to coordinate HHC IP Team notified of the above. Latricia Wylie, [employer]WORK ENGINEER CDU CM Normal [facility] GLUCOSE, FINGERSTICK-IN OFFI CEon 09-05-2022 Glucose [Mass/Vol] 311 mg/dL High 80-116 [facility] Comment on above: Performed By: #### 8 2948 #### NURSING GLUCOSE PROGRAM [address] [place], [address] Glucose [Mass/Vol] 311 mg/dL High 80 - 116 mg/dL [facility] Interpretation and review of laboratory results Abnormal [facility] Progress Noteson 09-05-2022 Engine Lathe Set Up Operator Authentication Interface Message Text UTILIZATION REVIEW AND STAFF BED STATUS CHANGE [facility] Utilization Review team and medical staff reviewed the clinical care for this patient using [facility] guidelines to determine appropriate bed status. The outcome of this review and discussions is to change the status from inpatient to observation. Normal [facility] B TYPE NATRIURETIC PEPTIDEon 09-04-2022 Natriuretic peptide B (Bld) [Mass/Vol] 894.0 pg/mL High <100.0 [facility] Comment on above: Performed By: #### B PL #### [facility] [address] [place], [address] Interpretation and review of laboratory results Abnormal [facility] Natriuretic peptide B (Bld) [Mass/Vol] 894.0 pg/mL High NINF - 100.0 pg/mL [facility] COVID/INFLUENZAon 09-04-2022 INFLUENZA A Not detected Normal Not Detected [facility] Comment on above: Order Comment: Detec fern results are indicative of the presence of the SARS-CoV-2 in the specimen submitted for testing. Clinical correlation with patient history and other diagnostic information is necessary to determine patient infection status. This test is intended for use only under Emergency Use Authorization (EUA). This test was developed, and its performance characteristics determined by [facility] which is certified under CLIA as qualified to perform high complexity clinical laboratory testing. Result Comment: This assay was performed using [employer] RTPCR technology. Performed By: #### F ESTELA/COVID #### S PATHOLOGY LABORATORY [address] [place] [address], INFLUENZA B Not detected Normal Not Detected [facility] Comment on above: Order Comment: Detec fern results are indicative of the presence of the SARS-CoV-2 in the specimen submitted for testing. Clinical correlation with patient history and other diagnostic information is necessary to determine patient infection status. This test is intended for use only under Emergency Use Authorization (EUA). This test was developed, and its performance characteristics determined by [facility] which is certified under CLIA as qualified to perform high complexity clinical laboratory testing. Result Comment: This assay was performed using [employer] RTPCR technology. Performed By: #### F ESTELA/COVID #### [facility] [address] [place] [address], SARS-CoV-2 (COVID-19) RNA BLU+probe Ql (Unsp spec) Detected Abnormal Not Detected [facility] Comment on above: Order Comment: Detec fern results are indicative of the presence of the SARS-CoV-2 in the specimen submitted for testing. Clinical correlation with patient history and other diagnostic information is necessary to determine patient infection status. This test is intended for use only under Emergency Use Authorization (EUA). This test was developed, and its performance characteristics determined by [facility] which is certified under CLIA as qualified to perform high complexity clinical laboratory testing. Result Comment: This assay was performed using [employer] RTPCR technology. Performed By: #### F ESTELA/COVID #### [facility] [address] [place] [address], COVID/INFLUENZAOrdered By: Shea Lane on 09-04-2022 FLUAV RNA BLU+probe Ql (Nph) Not detected Not Detected [facility] Comment on above: This assay was perfo rmed using [employer] RTPCR technology. FLUBV RNA BLU+probe Ql (Nph) Not detected Not Detected [facility] Comment on above: This assay was perfo rmed using [employer] RTPCR technology. Interpretation and review of laboratory results Abnormal [facility] SARS-CoV-2 (COVID-19) RNA BLU+probe Ql (Unsp spec) Detected Abnormal Not Detected [facility] Comment on above: This assay was perfo [...] developed, and its performance characteristics determined by [facility] [employer] which is certified under CLIA as qualified to perform high complexity clinical laboratory testing. [employer] CT ABD/PELVIS ED I/V COLLIN W / [...] mitral annular calcifications. MACRO: None Normal [employer] CT Abdomen and Pelvis W cont [...] 5. Severe mitral annular calcifications. MACRO: None [facility] CT L-SPINE W/O CONTRASTon CT L-SPINE W/O [...] or lumbar spine. MACRO: None Normal [facility] [employer] [facility] CT T-SPINE W/O CONTRASTon CT T-SPINE [...] CTA chest 09/03/2022 MACRO: None Normal [facility] [employer] [facility] CTA CHEST PULMONARY EMBOLISM W/ CTAon [...] atelectasis or scarring. MACRO: None Normal [facility] [employer] [facility] CTA Pulmonary arteries for p ulmonary embolus W contrast Zenaida 09-04-2022 CT DLP 1204.7 (mGy.cm) [facility] CT Series Entire body,Entire body,Entire body,Entire body,Entire body,Entire body [facility] CTDI VOL 5.3 (mGy),6.0 (mGy),11.1 (mGy),10.3 (mGy),10.0 (mGy),8.6 (mGy) [facility] NEGATIVE P/E Negative [facility] PHANTOM TYPE IEC Body Dosimetry Phantom,IEC Body Dosimetry Phantom,IEC Body Dosimetry Phantom,IEC Body Dosimetry Phantom,IEC Body Dosimetry Phantom,IEC Body Dosimetry Phantom [facility] EXAMINATION: CTA CHEST PULMONARY EMBOLISM W/ CTA [...] present focal atelectasis or scarring. MACRO: None [employer] Diabetes tracking panelOrder ed By: Emperatriz Dye on 09-04-2022 Average glucose Estimated from glycated hemoglobin (Bld) [Mass/Vol] 166 mg/dL [facility] HbA1c (Bld) [Mass fraction] 7.4 % High 4.0 - 5.6 % [facility] Interpretation and review of laboratory results Abnormal [employer] ED Provider Noteson 09-04-20 Engine Lathe Set Up Operator Authentication Interface Message Text MS REBEL 86 female cat 2 transfer form osh. [...] the floor. Tucker Bucio MD Normal [facility] EKG 12 LEAD - PERFORMon - Diagnosis Sinus bradycardia Possible Left atrial enlargement Borderline No previous ECGs available Confirmed by DIVINE GRAHAM ([id number]) on 09/04/2022 1:39:03 PM [facility] P wave Atrium by EKG 59 BPM [facility] P wave axis 52 degrees [facility] P-R Interval 178 ms [facility] Q-T interval 478 ms [facility] Q-T interval corrected 473 ms [facility] QRS axis 33 degrees [facility] QRS duration 104 ms [facility] T wave axis 66 degrees [facility] GLUCOSE, FINGERSTICK-IN OFFI CEon 09-04-2022 Glucose [Mass/Vol] 199 mg/dL High 80-116 [facility] Comment on above: Performed By: #### A PTT, PT #### [facility] [address] [place], [address] Glucose [Mass/Vol] 199 mg/dL High 80 - 116 mg/dL [facility] Interpretation and review of laboratory results Abnormal [facility] Glucose [Mass/Vol] 338 mg/dL High 80-116 [facility] Comment on above: Performed By: #### 8 2948 #### NURSING GLUCOSE PROGRAM [address] [place], [address] Glucose [Mass/Vol] 338 mg/dL High 80 - 116 mg/dL [facility] Interpretation and review of laboratory results Abnormal [facility] Glucose [Mass/Vol] 337 mg/dL High 80-116 [facility] Comment on above: Performed By: #### A PTT, PT #### [facility] [address] [place], [address] Glucose [Mass/Vol] 337 mg/dL High 80 - 116 mg/dL [facility] Interpretation and review of laboratory results Abnormal [facility] Glucose [Mass/Vol] 236 mg/dL High 80-116 [facility] Comment on above: Result Comment: Foll ow Protocol Performed By: #### 8 2948 ####NURSING GLUCOSE [id number] [place], [address] Glucose [Mass/Vol] 236 mg/dL High 80 - 116 mg/dL [facility] Comment on above: Follow Protocol Notified ETELVINA MCMANUS MD Interpretation and review of laboratory results Abnormal [facility] H AND Mandeep 09-04-2022 Engine Lathe Set Up Operator Authentication Interface Message Text Attestation signed by [...] Michael Hewitt : 1935 Sex: female [facility] Admit Date: 09/03/2022 Today's Date: 09/04/2022 Length [...] 20 (more content not included)... Normal [facility] [employer] [facility] HIGH SENSITIVITY TROPONIN IO rdered By: Petty Alegre on 09-04-2022 Troponin I.cardiac DL <= 0.01 ng/mL [Mass/Vol] 68 ng/L Critically high NINF - 15 ng/L [facility] HIGH SENSITIVITY TROPONIN Io n 09-04-2022 HS TROPONIN I 68 ng/L Critically high <=15 [facility] [employer] [facility] Comment on above: Order Comment: High Sensitivity Cardiac Troponin I (hsTnI) assay has replaced the conventional troponin assay at [facility].All results are reported in whole numbers representing ng/L.Repeat test times for ruling out acute coronary syndrome (ACS) are every 2 hours instead of every 6-8 hours.[id number] conventional troponin (I-stat) will remain available in the [facility] ED ??? results obtained by different labs [...] value in 2 hours depending on risk [id number] ng/L or greater??? concern for ACS or [...] A PTT, PT #### [facility] [address] [place] [address], [id number] Lipid 1996 panelon 2 Cholesterol [Mass/Vol] 163 [...] [Mass ratio] 3.70 {ratio} NINF - 5.00 [facility] Interpretation and review of laboratory results Abnormal [facility] Triglyceride [Mass/Vol] 78 mg/dL NINF - 151 mg/dL [facility] Procedureson 09-04-2022 Engine Lathe Set Up Operator Authentication Interface Message Text Transthoracic Echocardiographic Report Name: KASH MACIEL Interpreting MATT Quintero MD Physician: : [id number] Referring ANTHONY JOSE DO Physician: Age: 86 Double Head Machine Operator: Cinthya Shannon [facility] Exam Date: 09/04/2022 Fellow: 10:49 AM CVT: [...] Doctor's order(s) verified. Patient's preferred language is Palestinian . Verbal consent for left heart echo contrast was obtained after explanation of the risks (1/10,000 significant and 1/3,000 minor allergic reactions) and benefits (needed enhancement of imaging) were explained. Administration of 1 dose(s) of 1.5 ml of Definity diluted to .5 ml of saline was administered by cinthya shannon [facility]. Supine BP: 149/52 mmHg Patient Status: Routine [...] by: Electronically signed and authenticated by MATT Quinteor MD(Interpreting physician) on 09/04/2022 12:03 PM Normal [facility] [employer] [facility] Progress Noteson 09-04-2022 Engine Lathe Set Up Operator Authentication Interface Message Text Dental Consult The [...] with long-term current use of insulin (HCC) No current facility-administere d medications for this [...] gel, 30 g of glucose, Buccal, PRN, Margaria, Jaziel, DO insulin lispro (HumaLOG) 100 UNIT/ML injection, 2-9 Units, Subcutaneous, 3x Daily AC, Margaria, Jaziel, DO, 2 Units at 09/04/22 1841 acetaminophen (TYLENOL) tablet, 650 mg, Oral, Q4H PRN, Margaria, Jaziel, DO losartan (COZAAR) tablet, 12.5 mg, Oral, Daily, Margaria, Jaziel, DO, 12.5 mg at 09/04/22 0829 aspirin EC tablet, 81 mg, Oral, Daily, Margaria, Jaziel, DO, 81 mg at 09/04/22 0828 insulin glargine (LANTUS SOLOSTAR/BASAGLAR KWIKPEN) 100 UNIT/ML PEN injection, 20 Units, Subcutaneous, At Bedtime, Margmoses, Jaziel, DO Allergies Allergen Reactions Codeine Hives [...] has been advised to come to the [facility] for comprehensive evaluation and treatment of teeth #5-#8 Follow-up ; [facility] dentistry Oswaldo Mccall DDS Normal [facility] [employer] [facility] [employer] Authentication Interface Message Text Plastic Surgery Update Note: Imaging and exam reviewed with Dr. Mayers this morning. Alveolar fracture is minimally displaced. Recommend inpatient dental consult for splinting of teeth for displaced teeth/malocclusion. No surgical intervention for alveolar fracture. Please call back for further concerns. Elire Camarillo MD Plastic Surgery Normal [facility] [employer] [facility] SARS-CoV-2 (COVID-19) RNA BLU+probe Ql (Unsp [...] test. For more information refer to the [employer]. Normal [facility] [employer] [facility] City Voiceation Interface Message Text Internal Medicine Shelter Plan Note Michael Hewitt [id number] ACUTE02/23 Today's date: 09/04/2022 Admission date: 09/03/2022 [...] at this time. Rest of plan per sports team marketing intern note. Jaziel Madsen DO PGY-3 [id number] Normal [facility] [employer] [facility] Engine Lathe Set Up Operator Authentication Interface Message Text Incidental Findings Discussion [...] pulmonary hypertension. Franky Moffett DO Normal [facility] [employer] [facility] Troponin I.cardiac DL <= 0.0 1 ng/mL [Mass/Vol]Ordered By: Petty Alegre on 09-04-2022 Interpretation and review of laboratory results Abnormal [facility] High Sensitivity Cardiac Troponin I (hsTnI) assay has replaced the conventional troponin assay at [facility]. All results are reported in whole numbers representing ng/L. Repeat test times for ruling out acute coronary syndrome (ACS) are every 2 hours instead of every 6-8 hours. [id number] conventional troponin (I-stat) will remain available in the [facility] ED results obtained by different labs or [...] 1 points, >45 ng/L = 2 points). [facility] - left 2 Viewson EXAMINATION: [...] left femur fracture. Left femur MACRO: None [facility] LT FEMUR MIN 2 VIEWSon XR [...] fracture. Left femur MACRO: None Normal [facility] XR RT FEMUR MIN 2 VIEWSon XR RT FEMUR MIN 2 VIEWS EXAMINATION: XR RT FEMUR MIN 2 VIEWSPRO/RT 09/03/2022 09:39 PM CLINICAL HISTORY: Reason for Exam: trauma, ttp COMPARISON: None FINDINGS: No acute fracture is identified. There is no radiopaque foreign body. Ymkm-tr-jnuopjon hip osteoarthritis. Tricompartmental knee osteoarthritis. Atherosclerotic vascular calcifications. IMPRESSION: No acute right femur fracture. Right femur MACRO: None Normal [facility] ABO RH TYPEon 09-03-2022 ABO and Rh group Nom (Bld) Blood group A Rh(D) positive Normal [facility] Comment on above: Performed By: #### A PTT, PT #### [facility] [address] [place] [address], BASIC METABOLIC PANELon 08-20 Anion gap [Moles/Vol] 14 mmol/L Normal 10-20 [facility] Comment on above: Performed By: #### A PTT, PT #### [facility] [address] [place] [address], Calcium [Mass/Vol] 9.0 mg/dL Normal 8.4-10.4 [facility] Comment on above: Performed By: #### A PTT, PT #### [facility] [address] [place] [address], Chloride [Moles/Vol] 102 mmol/L Normal 97-111 [facility] Comment on above: Performed By: #### A PTT, PT #### [facility] [address] [place] [address], CO2 [Moles/Vol] 27 mmol/L Normal 21-30 [facility] Comment on above: Performed By: #### A PTT, PT #### [facility] [address] [place] [address], Creatinine [Mass/Vol] 1.24 mg/dL High 0.50-1.10 [facility] Comment on above: Performed By: #### A PTT, PT #### [facility] [address] [place] [address], ESTIMATED GFR (CKD-EPI) 43 mL/min/1.73sqm Low >=60 [facility] Comment on above: Result Comment: 2020 [...] Inclusion of Race in Diagnosing Kidney Disease. [place] Journal of Kidney Diseases 202;79(2):268-88.e1. 2. N Engl J Med 1 Vol. 385 Issue 19 Pages 0092-1087 Performed By: #### A PTT, PT #### [facility] [address] [place] [address], Glucose [Mass/Vol] 145 mg/dL High 80-116 [facility] Comment on above: Performed By: #### A PTT, PT #### [facility] [address] [place] [address], Potassium [Moles/Vol] 4.0 mmol/L Normal 3.3-5.3 [facility] Comment on above: Performed By: #### A PTT, PT #### [facility] [address] [place] [address], Sodium [Moles/Vol] 139 mmol/L Normal 135-148 [facility] Comment on above: Performed By: #### A PTT, PT #### [facility] [address] [place] [address], Urea nitrogen [Mass/Vol] 38 mg/dL High 8-22 [facility] Comment on above: Performed By: #### A PTT, PT #### [facility] [address] [place] [address], Basic metabolic 2000 panelon 09-03-2022 Anion gap [Moles/Vol] 14 mmol/L 10 - 20 [facility] Calcium [Mass/Vol] 9.0 mg/dL 8.4 - 10. 4 mg/dL [facility] Chloride [Moles/Vol] 102 mmol/L 97 - 11 [...] Inclusion of Race in Diagnosing Kidney Disease. [place] Journal of Kidney Diseases 2021;79(2):268-88.e1. 2. N Engl J Med 1 Vol. 385 Issue 19 Pages 4744-1371 Glucose [Mass/Vol] 145 mg/dL High 80 - 116 mg/dL [facility] Interpretation and review of laboratory results Abnormal [facility] Potassium [Moles/Vol] 4.0 mmol/L 3.3 - 5.3 mmol/L [facility] Sodium [Moles/Vol] 139 mmol/L 135 - 148 mmol/L [facility] Urea nitrogen [Mass/Vol] 38 mg/dL High 8 - 22 mg/dL [facility] CBC AUTO DIFFon 09-03-2022 BASO # 0.1 103/ul Normal 0.0-0.1 [facility] Comment on above: Performed By: #### C VDTB #### [facility] [address] [address] [address] Adan Rinaldi Basophils/100 WBC (Bld) 1.1 % Normal 0.2-2.0 [facility] Comment on above: Performed By: #### C VDTB #### [facility] [address] [address] [address] Adan Rinaldi EO # 0.4 103/ul Normal 0.0-0.7 [facility] Comment on above: Performed By: #### C VDTBH #### [facility] [address] [place] [address] Dr. Adan Rinaldi Eosinophils/100 WBC (Bld) 5.3 % Normal 0.9-7.0 [facility] Comment on above: Performed By: #### C VDTBH #### [facility] [address] [place] [address] Dr. Adan Rinaldi Erythrocyte distribution width (RBC) [Ratio] 14.6 % Normal 11.0-15.0 [facility] Comment on above: Performed By: #### C VDTBH #### [facility] [address] [place] [address] Dr. Adan Rinaldi Hematocrit (Bld) [Volume fraction] 33.3 % Critically low 36.0-48.0 [facility] Comment on above: Performed By: #### C VDTBH #### [facility] [address] [place] [address] Dr. Adan Rinaldi Hemoglobin (Bld) [Mass/Vol] 10.6 g/dL Critically low 12.0-16.0 [facility] Comment on above: Performed By: #### C VDTBH #### [facility] [address] [place] [address] Dr. Adan Rinaldi IG # 0.03 10e3/ul Normal 0.00-0.03 [facility] Comment on above: Performed By: #### C VDTBH #### [facility] [address] [place] [address] Dr. Adan Rinaldi IG % 0.5 % Normal 0.0-0.5 [facility] Comment on above: Performed By: #### C VDTBH #### [facility] [address] [place] [address] Dr. Adan Rinaldi LYMPH # 1.1 103/ul Critically low 1.2-3.8 [facility] Comment on above: Performed By: #### C VDTBH #### [facility] [address] [place] [address] Dr. Adan Rinaldi Lymphocytes/100 WBC (Bld) 17.0 % Critically low 20.5-60.0 [facility] Comment on above: Performed By: #### C VDTBH #### [facility] [address] [place] [address] Dr. Adan Rinaldi MANUAL DIFF REQ NO Normal [facility] Comment on above: Performed By: #### C VDTBH #### [facility] [address] [place] [address] Dr. Adan Rinaldi MCH (RBC) [Entitic mass] 28.5 pg Normal 26.7-34.0 [facility] Comment on above: Performed By: #### C VDTBH #### [facility] [address] [place] [address] Dr. Adan Rinaldi MCHC (RBC) [Mass/Vol] 31.8 g/dL Normal 29.9-35.2 [facility] Comment on above: Performed By: #### C VDTBH #### [facility] [address] [place] [address] Dr. Adan Rinaldi MCV (RBC) [Entitic vol] 89.5 fL Normal 81.0-99.0 [facility] Comment on above: Performed By: #### C VDTBH #### [facility] [address] [place] [address] Dr. Adan Rinaldi MONO # 0.6 103/ul Normal 0.3-0.8 [facility] Comment on above: Performed By: #### C VDTBH #### [facility] [address] [place] [address] Dr. Adan Rinaldi Monocytes/100 WBC (Bld) 9.1 % Normal 1.7-12.0 [facility] Comment on above: Performed By: #### C VDTBH #### [facility] [address] [place] [address] Dr. Adan Rinaldi NEUT # 4.4 103/ul Normal 1.4-6.5 [facility] Comment on above: Performed By: #### C VDTBH #### [facility] [address] [place] [address] Dr. Adan Rinaldi Neutrophils/100 WBC (Bld) 67.0 % Normal 43.0-75.0 [facility] Comment on above: Performed By: #### C VDTBH #### [facility] [address] [address] [address] Adan Rinaldi Platelet mean volume (Bld) [Entitic vol] 9.8 fL Normal 9.5-13.5 [facility] Comment on above: Performed By: #### C VDTBH #### [facility] [address] [address] [address] Adan Rinaldi PLT 233 103/ul Normal 150-450 [facility] Comment on above: Performed By: #### C VDTBH #### [facility] [address] [address] [address] Adan Rinaldi RBC 3.72 106/ul Critically low 4.20-5.40 The [facility] Comment on above: Performed By: #### Gabe VDTBH #### [facility] [address] [place] [address] Dr. Adan Rinaldi WBC 6.6 103/ul Normal 4.0-11.0 [facility] Comment on above: Performed By: #### Gabe VDTBH #### [facility] [address] [place] [address] Dr. Adan Rinaldi CBC WITH DIFFERENTIALon 08-20 Basophils (Bld) [#/Vol] 0.09 10*3/uL Normal 0.00-0.[address] [facility] Comment on above: Performed By: #### C BCDSAT ####[facility] [id number] [place] [address], #### HB A1C ####[facility] [address] [place], [address] Basophils/100 WBC (Bld) 0.7 % Normal <=1.[address] [facility] Comment on above: Performed By: #### C BCDSAT ####[facility] PATH[facility]Y [id number] [place] [address], #### HB A1C ####[facility] [address] [place], [address] Eosinophils (Bld) [#/Vol] 0.18 10*3/uL Normal 0.00-0.70 [facility] Comment on above: Performed By: #### C BCDSAT ####[facility]Y [id number] [place] [address], #### HB A1C ####[facility] [address] [place], [place], Eosinophils/100 WBC (Bld) 1.5 % Normal 0.1-4.0 [facility] Comment on above: Performed By: #### C BCDSAT ####[facility] [id number] [place] [address], #### HB A1C ####[facility] [address] [place], [place], Erythrocyte distribution width (RBC) [Ratio] 15.4 % High 11.5-14.5 [facility] Comment on above: Performed By: #### C BCDSAT ####[facility] PATH[facility]Y [id number] [place] [address], #### HB A1C ####[facility] [address] [place], [place], Hematocrit (Bld) [Volume fraction] 30.7 % Low 36.0-46.0 [facility] Comment on above: Performed By: #### C BCDSAT ####[facility] PATH[facility]Y [id number] [place] [address], #### HB A1C ####[facility] [address] [place] [address], Hemoglobin (Bld) [Mass/Vol] 10.4 g/dL Low 12.0-15.0 [facility] Comment on above: Performed By: #### C BCDSAT ####[facility] [id number] [place] [address], #### HB A1C ####[facility] [address] [place], [place], Lymphocytes (Bld) [#/Vol] 1.10 10*3/uL Normal 1.00-4.[address] [facility] Comment on above: Performed By: #### C BCDSAT ####[facility] PATH[facility] [id number] [place] [address], #### HB A1C ####[facility] [address] [place], [place], Lymphocytes/100 WBC (Bld) 9.1 % Low 24.0-44.0 [facility] Comment on above: Performed By: #### C BCDSAT ####[facility] [id number] [place] [address], #### HB A1C ####[facility] [address] [place], [place], MCH (RBC) [Entitic mass] 29.9 pg Normal 26.0-34.0 [facility] Comment on above: Performed By: #### C BCDSAT ####[facility] [id number] [place] [address], #### HB A1C ####[facility] [address] [place] [address], MCHC (RBC) [Mass/Vol] 33.9 g/dL Normal 32.0-35.9 [facility] Comment on above: Performed By: #### C BCDSAT ####[facility] [id number] [place] [address], #### HB A1C ####[facility] [address] [place] [address], MCV (RBC) [Entitic vol] 88 fL Normal 80-[address] [facility] Comment on above: Performed By: #### C BCDSAT ####[facility] [id number] [place] [address], #### HB A1C ####[facility] [address] [place], [place], MONOCYTE DISTRIBUTION WIDTH 18 Normal <=[address] [facility] Comment on above: Performed By: #### C BCDSAT ####[facility] [id number] [place] [address], #### HB A1C ####[facility] [address] [place], [address] Monocytes (Bld) [#/Vol] 0.83 10*3/uL Normal 0.20-1.00 [facility] Comment on above: Performed By: #### C BCDSAT ####[facility] [id number] [place] [address], #### HB A1C ####[facility] [address] [place], [address] Monocytes/100 WBC (Bld) 6.9 % Normal 2.0-11.0 [facility] Comment on above: Performed By: #### C BCDSAT ####[facility] [id number] [place] [address], #### HB A1C ####[facility] [address] [place], [place], Neutrophils (Bld) [#/Vol] 9.82 10*3/uL High 1.50-8.00 [facility] Comment on above: Performed By: #### C BCDSAT ####[facility] [id number] [place] [address], #### HB A1C ####[facility] [address] [place] [address], [address] Neutrophils/100 WBC (Bld) 81.7 % High 31.0-76.0 [facility] Comment on above: Performed By: #### C BCDSAT ####[facility]Y [id number] [place] [address], #### HB A1C ####[facility] [address] [place], [address] Platelet mean volume (Bld) [Entitic vol] 7.7 fL Normal 7.5-11.2 [facility] Comment on above: Performed By: #### C BCDSAT ####[facility] [id number] [place] [address], #### HB A1C ####[facility] [address] [place], [address] Platelets (Bld) [#/Vol] 245 10*3/uL Normal 150-400 [facility] Comment on above: Performed By: #### C BCDSAT ####[facility] [id number] [place], [place], #### HB A1C ####[facility] [address] [place], [address] RBC (Bld) [#/Vol] 3.48 10*6/uL Low 4.00-5.20 [facility] Comment on above: Performed By: #### C BCDSAT ####[facility] [id number] [place] [address], #### HB A1C ####[facility] [address] [place], [place], WBC (Bld) [#/Vol] 12.0 10*3/uL High 4.5-11.5 [facility] Comment on above: Performed By: #### C BCDSAT ####[facility] [id number] [place] [address], #### HB A1C ####[facility] [address] [place], [address] Basophils (Bld) [#/Vol] 0.09 10*3/uL 0.00 - [...] 4.5 - 11.5 K/uL [facility] CONon [address] CT [facility] CON CT CERVICAL SPINE WITHOUT CONTRAST HISTORY: History of fall. COMPARISON: CT cervical spine 04/10/2021. TECHNIQUE: Helical CT images were performed of the cervical spine without intravenous contrast. Dose reduction techniques were achieved by using automated exposure control and/or adjustment of mA and/or kV according to patient size and/or use of iterative reconstruction technique. FINDINGS: MAGNETIC HEALER RADIOGRAPH: Unremarkable. MINERALIZATION: Moderate osteopenia. CRANIOCERVICAL AND [...] by: АНДРЕЙ LOCK Date: 2022-09-03 16:32 Normal [facility] CT FACIAL BONES WO CONon CT FACIAL [...] by: DONN ROSE Date: 2022-09-03 16:19 Normal [facility] CT HEAD WO CONon 09-03-2022 [...] CLIFFORD JACOBSON Date: 2022-09-03 16:07 Normal [facility] CT Lumbar spine WO contrasto n 09-03-2022 [...] lower thoracic or lumbar spine. MACRO: None [employer] CT Thoracic spine WO contras ton 09-03-2022 [...] for CTA chest 09/03/2022 MACRO: None RADIOLOGY Bala Person MD - 09/03/2022 EXAMINATION: CT T-SPINE [...] report for CTA chest 09/03/2022 MACRO: None [employer] 09-03-2022 [employer] Set Up Operator Authentication Interface Message Text Dental Consult The [...] to get a comprehensive examination done at [facility]. Panoramic and full mouth series of radiographs needed for definitive diagnosis. Follow-up [facility] Dentistry office after patient gets discharged from ED Patito Sorenson DDS Normal The [employer] [facility] [employer] Set Up Operator Authentication Interface Message Text PLASTIC SURGERY FACIAL TRAUMA CONSULT Name: Michael Hewitt : 1935 HPI This 86 year old female date of injury was 09/03/2022. The patient was transported to [facility] by EMS. Initial evaluation at [facility]. Patient fell from standing at the [...] attending Plastic Surgery Staff On-Call: Riana Hewitt [phone] Elier Camarillo MD Plastic Surgery PGY-6 Service pager [phone] Normal The [facility] ED Noteson 09-03-2022 [employer] Set Up Operator Authentication Interface Message Text /KAYLEIGH READ notified of critical Troponin value of 79. Hard copy of results given to . Normal The [facility] ED Provider Noteson 09-03-20 [employer] Up Operator Authentication Interface Message Text HISTORY OF PRESENT [...] ATTESTATION (more content not included)... Normal [facility] Triage Noteson 09-03-2022 [employer] Set Up Operator Authentication Interface Message Text Prehospital Medications: 0.5mg dilaudid 4mg zofran Normal [facility] [employer] Set Up Operator Authentication Interface Message Text 86F, felt dizzy while at grocery store, fell from standing onto face Normal [facility] ETHANOL, SERUMon 09-03-2022 Ethanol [Mass/Vol] mg/dL Normal None Detected [facility] Comment on above: Performed By: #### A PTT, PT #### [facility] [address] [place] [address], Ethanol [Mass/Vol] mg/dL None Dete cted mg/dL [facility] of [facility] results Normal [facility] FULL LIPID PROFILEon 022 Cholesterol [Mass/Vol] 163 mg/dL Normal <200 [facility] Comment on above: Performed By: #### A PTT, PT #### [facility] [address] [place] [address], Cholesterol in LDL [Mass/Vol] 109 mg/dL Normal <111 [facility] Comment on above: Performed By: #### A PTT, PT #### [facility] [address] [place] [address], Cholesterol.total/Chol esterol in HDL [Mass ratio] 3.70 {ratio} Normal <5.00 [facility] Comment on above: Performed By: #### A PTT, PT #### [facility] [address] [place] [address], HDL CHOL 44 mg/dL Low >54 [facility] Comment on above: Performed By: #### A PTT, PT #### [facility] [address] [place] [address], LDL/HDL 2.48 Normal <3.57 [facility] Comment on above: Performed By: #### A PTT, PT #### [facility] [address] [place] [address], NON-HDL CHOLESTEROL 119 mg/dL Normal <130 [facility] Comment on above: Performed By: #### A PTT, PT #### [facility] [address] [place], [place], Triglyceride [Mass/Vol] 78 mg/dL Normal <151 [facility] Comment on above: Performed By: #### A PTT, PT #### [facility] [address] [place], [place], H AND Mandeep 09-03-2022 Engine Lathe Set Up Operator Authentication Interface Message Text Attestation signed by [...] and Emergency General Surgery Department of Surgery [facility] DIVISION OF ACUTE CARE SURGERY TRAUMA SURGERY HISTORY AND PHYSICAL Michael Hewitt [id number] 09/03/22 BASIC INJURY INFORMATION: Level of activation: Category 2 Trauma Mode of transport: Ambulance: EMS Mechanism of injury: Fall from ground level Complicating features: Not applicable Protective measures: Not applicable Date of Injury: 09/03/2022 Time of Injury: Today Patient origin: Transfer from outside facility HISTORY OF PRESENT INJURY: Michael Hewitt is a 86 year old female brought in by EMS from [facility] following a fall with traumatic injuries. [...] status: Single Living status: Home Primary language: Palestinian Functional status: Independent Impairments: None Assistive Devices Used: None FAMILY HISTORY: No family history on file. REVIEW OF SYSTEMS: Skin: negative and bruising Eyes: negative review of symptoms Ears/Nose/Throat: negative and dental problem Respiratory: negative symptoms (no cough, hemoptysis, SOB, WILKES, PND, wheezing) Cardiovascular: negative symptoms (No CP/Pressure/ (more content not included)... Normal The [facility] HEMOGLOBIN A1Con 09-03-2022 Glucose [Mass/Vol] 166 mg/dL Normal [facility] Comment on above: Performed By: #### C BCDSAT ####[facility] PATHOLOGY [id number] [place] [address], #### HB A1C ####[facility] [address] [place], [address] HbA1c (Bld) [Mass fraction] 7.4 % High 4.0-5.[address] [facility] Comment on above: Performed By: #### C BCDSAT ####[facility] PATHOLOG[facility] [id number] [place], [place], #### HB A1C ####[facility] [address] [place], [address] HIGH SENSITIVITY TROPONIN Io n 09-03-2022 HS TROPONIN I 79 ng/L Critically high <=[address] [facility] Comment on above: Order Comment: High Sensitivity Cardiac Troponin I (hsTnI) assay has replaced the conventional troponin assay at [facility].All results are reported in whole numbers representing ng/L.Repeat test times for ruling out acute coronary syndrome (ACS) are every 2 hours instead of every 6-8 hours.[id number] conventional troponin (I-stat) will remain available in the Main [place] [facility] ??? results obtained by different labs [...] value in 2 hours depending on risk [id number] ng/L or greater??? concern for ACS or [...] PTT, PT #### [facility] [address] [place], [address] HIGH SENSITIVITY TROPONIN IO rdered By: Varsha Waite on 09-03-2022 Troponin I.cardiac DL <= 0.01 ng/mL [Mass/Vol] 79 ng/L Critically high NINF - 15 ng/L [facility] HIV 1 and 2 Ab and HIV 1 p24 Ag panel IAon 09-03-2022 HIV 1+2 Ab+HIV1 p24 Ag IA Ql Non-Reactive Nonreactive [facility] Interpretation and review of laboratory results Normal [facility] The specimen was non-reactive for HIV-1 and HIV-2 antibodies, and p24 antigen. Based on this non-reactive screen result, further reflexive testing was not indicated and was, therefore, not performed. Note: The performance of this assay has not been clinically validated in patients less than 2 years old. [employer] HIV1 HIV2 AGAB SCRNon 2021 HIV 1/2 AG/AB Non-Reactive Normal Nonreactive [facility] Comment on above: Order Comment: The s pecimen was non-reactive for HIV-1 and HIV-2 antibodies, and p24 antigen. Based on this non-reactive screen result, further reflexive testing was not indicated and was, therefore, not performed.Note: The performance of this assay has not been clinically validated in patients less than 2 years old. Performed By: #### A PTT, PT #### S PATHOLOGY LABORATORY [address] [place] [address], LACTIC ACIDon 09-03-2022 CR LACT 1.2 mmol/L Normal 0.5-2.0 [facility] Comment on above: Performed By: #### A PTT, PT #### [facility] PATHOLOGY LABORATORY [address] [place] [address], LACTIC ACIDOrdered By: Leonela Gurrola on 09-03-2022 Interpretation and review of laboratory results Normal [facility] Lactate [Moles/Vol] 1.2 mmol/L 0.5 - 2. 0 mmol/L [employer] Laboratory - Blood bankon ABO and Rh group Nom (Bld) Blood group A Rh(D) positive [facility] No Panel Informationon 09-03 [employer] Interpretation and review of laboratory results Normal [employer] Radiology Study observation (narrative) [facility] Radiology Study observation (narrative) [facility] PARTIAL THROMBOPLASTIN TIMEo n 09-03-2022 aPTT Coag (Bld) [Time] 30 s Normal 25-37 Th e [facility] Comment on above: Performed By: #### A PTT, PT #### [facility] [address] [place] [address], [phone] aPTT Coag (Bld) [Time] 30 s [facility] PROF CHEM 8 (BAS METB)on Anion gap [Moles/Vol] 13.2 mmol/L Normal [facility] Comment on above: Performed By: #### H JACQUELINEPN, BMP #### [facility] Laboratory [address] [place] [address] Dr. Adan Rinaldi Calcium [Mass/Vol] 9.1 mg/dL Normal 8.5-10.1 [facility] Comment on above: Performed By: #### H JACQUELINEPN, BMP #### [facility] Laboratory [address] [place] [address] Dr. Adan Rinaldi Chloride [Moles/Vol] 99 mmol/L Normal 98-107 [facility] Comment on above: Performed By: #### H LYNNE, BMP #### [facility] Laboratory [address] [place] [address] Dr. Adan Rinaldi CO2 [Moles/Vol] 26.9 mmol/L Normal 21.0-32.0 [facility] Comment on above: Performed By: #### H STRORIKY, BMP #### [facility] Laboratory [address] [place] [address] Dr. Adan Rinaldi Creatinine [Mass/Vol] 1.50 mg/dL Critically high 0.55-1.02 [facility] Comment on above: Performed By: #### H STROPN, BMP #### [facility] Laboratory [address] [place] [address] Dr. Adan Rinaldi EGFR-AF TOGOLESE 40 mL/min/1.73m2 Critically low >=60 [facility] Comment on above: Performed By: #### H STROPN, BMP #### [facility] Laboratory [address] [place] [address] Dr. Adan Rinaldi EGFR-NON AF TOGOLESE 33 mL/min/1.73m2 Critically low >=60 [facility] Comment on above: Performed By: #### H STROPN, BMP #### [facility] Laboratory [address] [place] [address] Dr. Adan Rinaldi Glucose [Mass/Vol] 213 mg/dL Critically high 74-106 T [facility] Comment on above: Performed By: #### H LYNNE, BMP #### [facility] Laboratory [address] [place] [address] Dr. Adan Rinaldi Potassium [Moles/Vol] 4.1 mmol/L Normal 3.5-5.1 [facility] Comment on above: Performed By: #### H LYNNE, BMP #### [facility] Laboratory [address] [place] [address] Dr. Adan Rinaldi Sodium [Moles/Vol] 135 mmol/L Critically low 136-145 Th [facility] Comment on above: Performed By: #### H LYNNE, BMP #### [facility] Laboratory [address] [place] [address] Dr. Adan Rinaldi Urea nitrogen [Mass/Vol] 38.0 mg/dL Critically high 7.0-18.0 [facility] Comment on above: Performed By: #### H LYNNE, BMP #### [facility] Laboratory [address] [place] [address] Dr. Adan Rinaldi Urea nitrogen/Creatinine [Mass ratio] 25.3 mg/mg Normal [facility] Comment on above: Performed By: #### H LYNNE, BMP #### [facility] Laboratory [address] [place] [address] Dr. Adan Rinaldi PROTHROMBIN TIME AND INRon 11-04-2021 INR Coag (PPP) [Relative time] 1.06 {INR} Normal 0.90-1.[address] [facility] Comment on above: Performed By: #### A PTT, PT #### [facility] PATHOLOGY LABORATORY [address] [place] [address], PT Coag (PPP) [Time] 12.0 s Normal 9.7-12.9 [facility] Comment on above: Performed By: #### A PTT, PT #### S PATHOLOGY LABORATORY [address] [place] [address], INR Coag (PPP) [Relative time] 1.06 {INR} 0.90 - 1.10 [facility] (PPP[facility] [Time] 12.0 s [facility] Progress Noteson 09-03-2022 Engine Lathe Set Up Operator Authentication Interface Message Text Pt a 86 yo F, CAT 2 trauma, [facility] vs her face with aveolar ridge fx and traumatic teeth extraction. Pt was at the grocery store and was dizzy at the time of the fall. Presenting to the ED is son Alek Hewitt ([phone]). SW providing emotional support and reuniting son with pt bedside. MARY ALICE Barrett, MSSA Normal [facility] TROPONIN, HIGH SENSITIVITYon 09-03-2022 HSTROP 45.9 pg/mL Normal 4.0-51.3 [facility] Comment on above: Result Comment: CUT- OFF POINTS HAVE BEEN ESTABLISHED BASED ON THE FOURTH UNIVERSAL DEFINITIONS OF MYOCARDIAL INFARCTION. THE UPPER REFERENCE LIMIT (URL) OF TROPONIN, DEFINED THE 99TH PERCENTILE OF cTnI DISTRIBUTION IN A REFERENCE POPULATION, HAS BEEN CONFIRMED THE DECISION THRESHOLD FOR DC DIAGNOSIS. Performed By: #### H STROPN, BMP #### [facility] Laboratory [address] [place] [address] Dr. Adan Rinaldi TYPE AND SCREENon 09-03-2022 ABO and Rh group Nom (Bld) Blood group A Rh(D) positive Normal [facility] Comment on above: Performed By: #### A PTT, PT #### [facility] [address] [place] [address], ABO and Rh group Nom (Bld) No Previous Results Normal [facility] Comment on above: Performed By: #### A PTT, PT #### S PATHOLOGY LABORATORY [address] [place] [address], ABSC INT Negative Normal [facility] Comment on above: Performed By: #### A PTT, PT #### S PATHOLOGY LABORATORY [address] [place] [address], ABO and Rh group Nom (Bld) No Previous Results [facility] Blood group antibody screen Ql Negative [facility] Troponin I.cardiac DL <= 0.0 1 ng/mL [Mass/Vol]Ordered By: Varsha Waite on 09-03-2022 Interpretation and review of laboratory results Abnormal [facility] High Sensitivity Cardiac Troponin I (hsTnI) assay has replaced the conventional troponin assay at [facility]. All results are reported in whole numbers representing ng/L. Repeat test times for ruling out acute coronary syndrome (ACS) are every 2 hours instead of every 6-8 hours. [id number]-ub-ymvk conventional troponin (I-stat) will remain available in the Main [place] ED results obtained by different labs or [...] 1 points, >45 ng/L = 2 points). [employer] XR CHEST 1 VIEW AP OR PAon [...] cardiopulmonary abnormality identified. MACRO: None Normal [facility] [employer] [facility] XR Chest Single viewon 09-03 EXAMINATION: [...] No acute cardiopulmonary abnormality identified. MACRO: None [employer] [facility] Radiology Study observation (narrative) [employer] XR Chest Single viewOrdered By: Bala Pesron on 09-03-2022 [employer] Work Phone: XR Femur - right 2 Viewson 1 11-04-2021 EXAMINATION: XR RT FEMUR MIN 2 VIEWSPRO/RT 09/03/2022 09:39 PM CLINICAL HISTORY: Reason for Exam: trauma, ttp COMPARISON: None FINDINGS: No acute fracture is identified. There is no radiopaque foreign body. Tuza-cn-tlxvspsr hip osteoarthritis. Tricompartmental knee osteoarthritis. Atherosclerotic vascular calcifications. IMPRESSION: No acute right femur fracture. Right femur MACRO: None RADIOLOGY Bala Person MD - 09/04/2022 EXAMINATION: XR RT FEMUR MIN 2 VIEWSPRO/RT 09/03/2022 09:39 PM CLINICAL HISTORY: Reason for Exam: trauma, ttp COMPARISON: None FINDINGS: No acute fracture is identified. There is no radiopaque foreign body. Kkxa-vm-lgcnmpja hip osteoarthritis. Tricompartmental knee osteoarthritis. Atherosclerotic vascular calcifications. IMPRESSION: No acute right femur fracture. Right femur MACRO: None [facility] XR HIPS LINDSEY 5V W PELVISon XR [...] BLAS MASON Date: 2022-09-03 16:41 Normal [facility] PROF CHEM 8 (BAS METB)on Anion gap [Moles/Vol] 11.0 mmol/L Normal [facility] Comment on above: Performed By: #### C BC #### [facility] Laboratory [address] [address] [address] Adan Rinaldi Calcium [Mass/Vol] 8.8 mg/dL Normal 8.5-10.1 [facility] Comment on above: Performed By: #### C BC #### [facility] Laboratory [address] [address] [address] Adan Rinaldi Chloride [Moles/Vol] 103 mmol/L Normal 98-107 [facility] Comment on above: Performed By: #### C BC #### [facility] Laboratory [address] [address] [address] Adan Rinaldi CO2 [Moles/Vol] 29.1 mmol/L Normal 21.0-32.0 [facility] Comment on above: Performed By: #### C BC #### [facility] Laboratory [address] [address] [address] Adan Rinaldi Creatinine [Mass/Vol] 1.27 mg/dL Critically high 0.55-1.02 [facility] Comment on above: Performed By: #### C BC #### [facility] Laboratory [address] [address] [address] Adan Rinaldi EGFR-AF TOGOLESE 48 mL/min/1.73m2 Critically low >=60 [facility] Comment on above: Performed By: #### C BC #### [facility] Laboratory [address] [address] [address] Adan Rinaldi EGFR-NON AF TOGOLESE 40 mL/min/1.73m2 Critically low >=60 [facility] Comment on above: Performed By: #### C BC #### [facility] Laboratory [address] [place] [address] Dr. Adan Rinaldi Glucose [Mass/Vol] 78 mg/dL Normal 74-106 [facility] Comment on above: Performed By: #### C BC #### [facility] Laboratory [address] [place] [address] Dr. Adan Rinaldi Potassium [Moles/Vol] 4.1 mmol/L Normal 3.5-5.1 [facility] Comment on above: Performed By: #### C BC #### [facility] Laboratory [address] [address] [address] Adan Rinaldi Sodium [Moles/Vol] 139 mmol/L Normal 136-145 [facility] Comment on above: Performed By: #### C BC #### [facility] Laboratory [address] [address] [address] Adan Rinaldi Urea nitrogen [Mass/Vol] 36.0 mg/dL Critically high 7.0-18.0 [facility] Comment on above: Performed By: #### C BC #### [facility] Laboratory [address] [address] [address] Adan Rinaldi Urea nitrogen/Creatinine [Mass ratio] 28.3 mg/mg Normal [facility] Comment on above: Performed By: #### C BC #### [facility] Laboratory [address] [address] [address] Adan Rinaldi PROF CHEM 8 (BAS METB)on Anion gap [Moles/Vol] 10.4 mmol/L Normal [facility] Comment on above: Performed By: #### C BC #### [facility] Laboratory [address] [place] [address] Dr. Adan Rinaldi Calcium [Mass/Vol] 8.8 mg/dL Normal 8.5-10.1 [facility] Comment on above: Performed By: #### C BC #### [facility] Laboratory [address] [place] [address] Dr. Adan Rinaldi Chloride [Moles/Vol] 104 mmol/L Normal 98-107 [facility] Comment on above: Performed By: #### C BC #### [facility] Laboratory [address] [place] [address] Dr. Adan Rinaldi CO2 [Moles/Vol] 26.9 mmol/L Normal 21.0-32.0 [facility] Comment on above: Performed By: #### C BC #### [facility] Laboratory [address] [place] [address] Dr. Adan Rinaldi Creatinine [Mass/Vol] 1.13 mg/dL Critically high 0.55-1.02 [facility] Comment on above: Performed By: #### C BC #### [facility] Laboratory [address] [place] [address] Dr. Adan Rinaldi EGFR-AF TOGOLESE 55 mL/min/1.73m2 Critically low >=60 [facility] Comment on above: Performed By: #### C BC #### [facility] Laboratory [address] [place] [address] Dr. Adan Rinaldi EGFR-NON AF TOGOLESE 46 mL/min/1.73m2 Critically low >=60 [facility] Comment on above: Performed By: #### C BC #### [facility] Laboratory [address] [place] [address] Dr. Adan Rinaldi Glucose [Mass/Vol] 164 mg/dL Critically high 74-106 T [facility] Comment on above: Performed By: #### C BC #### [facility] Laboratory [address] [address] [address] Adan Rinaldi Potassium [Moles/Vol] 4.3 mmol/L Normal 3.5-5.1 [facility] Comment on above: Performed By: #### C BC #### [facility] Laboratory [address] [address] [address] Adan Rinaldi Sodium [Moles/Vol] 137 mmol/L Normal 136-145 [facility] Comment on above: Performed By: #### C BC #### [facility] Laboratory [address] [address] [address] Adan Rinaldi Urea nitrogen [Mass/Vol] 29.0 mg/dL Critically high 7.0-18.0 [facility] Comment on above: Performed By: #### C BC #### [facility] Laboratory [address] [address] [address] Adan Rinaldi Urea nitrogen/Creatinine [Mass ratio] 25.7 mg/mg Normal [facility] Comment on above: Performed By: #### C BC #### [facility] Laboratory [address] [address] [address] Adan Rinaldi [facility] Emergency Department 05-28-2022 [facility] Department of Radiology [address] [place] [id number] Patient Name: ELIZ HEWITT : 1935 Sex: F Age: Race: White Pt. Location: Patient Status: O Ordered Date: 05/28/2022 10:05:00 AM Completed Date: 05/28/2022 10:11 AM Requesting Provider: RAAD PEREZ Attending Provider: RAAD PEREZ Report Copy To: Signs & Symptoms: S42.302A Unsp fracture of shaft of humerus, left arm, init I10 History: [place] Comments: Evaluate Exam: HUMERUS LEFT HUMERUS LEFT [...] stable. Electronically signed: Henrry Mast. Transcribed by: [email or web address], User Resident: Electronically Signed by: HENRRY MAST @ 05/28/2022 10:23 AM Normal [facility] Comment on above: Order Comment: Evalu ate WOUND CULTUREon 05-23-2022 Bacteria identified Aer cx Nom (Unsp spec) Final report Normal [facility] Comment on above: Performed By: #### C XWND #### [facility] Laboratory [address] [place] [address] Dr. Adan Rinaldi Result 1 Comment Normal [facility] Comment on above: Result Comment: No g rowth in 36 - 48 hours. Performed By: #### C XWND #### [facility] Laboratory [address] [address] [address] Adan Rinaldi HUMERUS LEFTon 05-21-2022 HUMERUS LEFT [facility] Department of Radiology [address] [place] [id number] Patient Name: ELIZ HEWITT : 1935 Sex: F Age: Race: White Pt. Location: Patient Status: Ordered Date: 05/21/2022 10:30:00 AM Completed Date: 05/21/2022 11:07 AM Requesting Provider: RAAD PEREZ Attending Provider: Report Copy To: Signs & Symptoms: S42.302A Unsp fracture of shaft of humerus, left arm, init I10 History: [place] Comments: Evaluate Exam: HUMERUS LEFT HUMERUS LEFT [...] effusion. Electronically signed: DAMON BOYLE. Transcribed by: [email or web address], User Resident: Electronically Signed by: DAMON BOYLE @ 05/21/2022 03:39 PM Normal [facility] Comment on above: Order Comment: No: D o not add to previous draw CBC AUTO DIFFon 05-20-2022 BASO # 0.1 103/ul Normal 0.0-0.1 [facility] Comment on above: Performed By: #### C VDTBH #### [facility] Laboratory [address] [place] [address] Dr. Adan Rinaldi Basophils/100 WBC (Bld) 0.8 % Normal 0.2-2.0 [facility] Comment on above: Performed By: #### C VDTBH #### [facility] Laboratory [address] [place] [address] Dr. Adan Rinaldi EO # 0.2 103/ul Normal 0.0-0.7 [facility] Comment on above: Performed By: #### C VDTBH #### [facility] Laboratory [address] [place] [address] Dr. Adan Rinaldi Eosinophils/100 WBC (Bld) 2.0 % Normal 0.9-7.0 [facility] Comment on above: Performed By: #### C VDTBH #### [facility] Laboratory [address] [place] [address] Dr. Adan Rinaldi Erythrocyte distribution width (RBC) [Ratio] 14.4 % Normal 11.0-15.0 [facility] Comment on above: Performed By: #### C VDTBH #### [facility] Laboratory [address] [place] [address] Dr. Adan Rinaldi Hematocrit (Bld) [Volume fraction] 23.1 % Critically low 36.0-48.0 [facility] Comment on above: Performed By: #### C VDTBH #### [facility] Laboratory [address] [place] [address] Dr. Adan Rinaldi Hemoglobin (Bld) [Mass/Vol] 7.4 g/dL Critically low 12.0-16.0 [facility] Comment on above: Performed By: #### C VDTBH #### [facility] Laboratory [address] [place] [address] Dr. Adan Rinaldi IG # 0.04 10e3/ul Critically high 0.00-0.03 [facility] Comment on above: Performed By: #### C VDTBH #### [facility] Laboratory [address] [place] [address] Dr. Adan Rinaldi IG % 0.5 % Normal 0.0-0.5 [facility] Comment on above: Performed By: #### C VDTBH #### [facility] Laboratory [address] [place] [address] Dr. Adan Rinaldi LYMPH # 1.1 103/ul Critically low 1.2-3.8 [facility] Comment on above: Performed By: #### C VDTBH #### [facility] Laboratory [address] [place] [address] Dr. Adan Rinaldi Lymphocytes/100 WBC (Bld) 12.0 % Critically low 20.5-60.0 [facility] Comment on above: Performed By: #### C VDTBH #### [facility] Laboratory [address] [place] [address] Dr. Adan Rinaldi MANUAL DIFF REQ NO Normal [facility] Comment on above: Performed By: #### C VDTBH #### [facility] Laboratory [address] [place] [address] Dr. Adan Rinaldi MCH (RBC) [Entitic mass] 28.7 pg Normal 26.7-34.0 [facility] Comment on above: Performed By: #### C VDTBH #### [facility] Laboratory [address] [place] [address] Dr. Adan Rinaldi MCHC (RBC) [Mass/Vol] 32.0 g/dL Normal 29.9-35.2 [facility] Comment on above: Performed By: #### C VDTBH #### [facility] Laboratory [address] [place] [address] Dr. Adan Rinaldi MCV (RBC) [Entitic vol] 89.5 fL Normal 81.0-99.0 [facility] Comment on above: Performed By: #### C VDTBH #### [facility] Laboratory [address] [place] [address] Dr. Adan Rinaldi MONO # 1.0 103/ul Critically high 0.3-0.8 [facility] Comment on above: Performed By: #### C VDTBH #### [facility] Laboratory [address] [place] [address] Dr. Adan Rinaldi Monocytes/100 WBC (Bld) 11.6 % Normal 1.7-12.0 [facility] Comment on above: Performed By: #### C VDTBH #### [facility] Laboratory [address] [place] [address] Dr. Adan Rinaldi NEUT # 6.5 103/ul Normal 1.4-6.5 [facility] Comment on above: Performed By: #### C VDTBH #### [facility] Laboratory [address] [place] [address] Dr. Adan Rinaldi Neutrophils/100 WBC (Bld) 73.1 % Normal 43.0-75.0 [facility] Comment on above: Performed By: #### C VDTBH #### [facility] Laboratory [address] [place] [address] Dr. Adan Rinaldi Platelet mean volume (Bld) [Entitic vol] 9.7 fL Normal 9.5-13.5 [facility] Comment on above: Performed By: #### C VDTBH #### [facility] Laboratory [address] [place] [address] Dr. Adan Rinaldi PLT 298 103/ul Normal 150-450 [facility] Comment on above: Performed By: #### C VDTBH #### [facility] Laboratory [address] [place] [address] Dr. Adan Rinaldi RBC 2.58 106/ul Critically low 4.20-5.40 [facility] Comment on above: Performed By: #### C VDTBH #### [facility] Laboratory [address] [place] [address] Dr. Adan Rinaldi WBC 8.9 103/ul Normal 4.0-11.0 [facility] Comment on above: Performed By: #### C VDTBH #### [facility] Laboratory [address] [place] [address] Dr. Adan Rinaldi CULTURE BLOODon 05-20-2022 Microscopic examination of blood, culture Culture Observations: NO GROWTH AT 5 DAYS. Normal [facility] Comment on above: Performed By: #### B LDCX2 #### [facility] Laboratory [address] [place] [address] Dr. Adan Rinaldi Microscopic examination of blood, culture Culture Observations: NO GROWTH AT 5 DAYS. Normal [facility] Comment on above: Performed By: #### P OCGLUC #### [facility] Laboratory [address] [address] [address] Adan Rinaldi Covid-[facility]on 04-22 SARS-CoV-2 (COVID-19) RNA BLU+probe Ql (Unsp spec) Not detected Normal NOT DETECTED [facility] Comment on above: Result Comment: [...] for this test is supported by the Clinical Documentation Spec of Health and Human Service's declaration that [...] used). Performed By: #### C VDTBH #### [facility] Laboratory [address] [address] [address] Adan Rinaldi ER URINE PROFILEon 2 Bilirubin Ql (U) Negative Normal NEGATIVE [facility] Comment on above: Performed By: #### H STROPN, BMP #### [facility] Laboratory [address] [address] [address] Adan Rinaldi Clarity (U) CLEAR Normal CLEAR [facility] Comment on above: Performed By: #### H STROPN, BMP #### [facility] Laboratory [address] [place] [address] Dr. Adan Rinaldi Color (U) LT. YELLOW Normal YELLOW [facility] Comment on above: Performed By: #### H STROPN, BMP #### [facility] Laboratory [address] [address] [address] Adan JONES A micrscopic examination will be performed if indicated. Normal [facility] Comment on above: Performed By: #### H STROPN, BMP #### [facility] Laboratory [address] [address] [address] Adan Rinaldi Glucose Ql (U) Negative Normal NEGATIVE [facility] Comment on above: Performed By: #### H STROPN, BMP #### [facility] Laboratory [address] [address] [address] Adan Rinaldi Hemoglobin Ql (U) Negative Normal NEGATIVE [facility] Comment on above: Performed By: #### H STROPN, BMP #### [facility] [address] [address] [address] Adan Rinaldi Ketones Ql (U) Negative Normal NEGATIVE [facility] Comment on above: Performed By: #### H STROPN, BMP #### [facility] [address] [address] [address] Adan Rinaldi LEUKOCYTES Negative Normal NEGATIVE [facility] Comment on above: Performed By: #### H STROPN, BMP #### [facility] [address] [address] [address] Adan Rinaldi Nitrite Ql (U) Negative Normal NEGATIVE [facility] Comment on above: Performed By: #### H STROPN, BMP #### [facility] [address] [address] [address] Adan Rinaldi pH (U) 5.5 [pH] Normal 5-9 [facility] Comment on above: Performed By: #### H STROPN, BMP #### [facility] [address] [address] [address] Adan Rinaldi SPEC GRAVITY <=1.005 Abnormal 1.005-<=1.025 [facility] Comment on above: Performed By: #### H STROPN, BMP #### [facility] [address] [address] [address] Adan Rinaldi UA PROTEIN Negative Normal NEGATIVE/ TRACE [facility] Comment on above: Performed By: #### H STROPN, BMP #### [facility] [address] [place] [address] Dr. Adan Rinaldi UR MICRO IND NOT INDICATED Normal [facility] Comment on above: Performed By: #### H STROPN, BMP #### [facility] [address] [place] [address] Dr. Adan Rinaldi Urobilinogen Qn (U) 0.2 {Manny'U}/dL Normal 0.2 - 1. 0 [facility] Comment on above: Performed By: #### H STROPN, BMP #### [facility] [address] [place] [address] Dr. Adan Rinaldi LACTATE/LACTIC ACIDon 2021 Lactate [Moles/Vol] 1.5 mmol/L Normal 0.4-1.9 [facility] Comment on above: Performed By: #### C VDTBH #### [facility] [address] [place] [address] Dr. Adan Rinaldi Lactate [Moles/Vol] 2.0 mmol/L Critically high 0.4-1.9 [facility] Comment on above: Performed By: #### C BC #### [facility] [address] [place] [address] Dr. Adan Rinaldi PROF 14(COMP METB)on 022 Albumin [Mass/Vol] 2.7 g/dL Critically low 3.4-5.0 [facility] Comment on above: Performed By: #### H STROPN, BMP #### [facility] [address] [place] [address] Dr. Adan Rinaldi Albumin/Globulin [Mass ratio] 0.7 {ratio} Normal [facility] Comment on above: Performed By: #### H STROPN, BMP #### [facility] [address] [place] [address] Dr. Adan Rinaldi ALP [Catalytic activity/Vol] 85 U/L Normal 46-116 [facility] Comment on above: Performed By: #### H JACQUELINEPN, BMP #### [facility] [address] [place] [address] Dr. Adan Rinaldi ALT [Catalytic activity/Vol] 13 U/L Critically low 14-59 [facility] Comment on above: Performed By: #### H JACQUELINEPN, BMP #### [facility] [address] [place] [address] Dr. Adan Rinaldi Anion gap [Moles/Vol] 11.8 mmol/L Normal Th [facility] Comment on above: Performed By: #### H JACQUELINEPN, BMP #### [facility] [address] [place] [address] Dr. Adan Rinaldi AST [Catalytic activity/Vol] 21 U/L Normal 15-37 [facility] Comment on above: Performed By: #### H JACQUELINEPN, BMP #### [facility] [address] [place] [address] Dr. Adan Rinaldi Bilirubin [Mass/Vol] 0.7 mg/dL Normal 0.2-1.0 [facility] Comment on above: Performed By: #### H LYNNE, BMP #### [facility] [address] [place] [address] Dr. Adan Rinaldi Calcium [Mass/Vol] 8.6 mg/dL Normal 8.5-10.1 [facility] Comment on above: Performed By: #### H STRORIKY, BMP #### [facility] [address] [place] [address] Dr. Adan Rinaldi Chloride [Moles/Vol] 102 mmol/L Normal 98-107 [facility] Comment on above: Performed By: #### H STROPN, BMP #### [facility] [address] [place] [address] Dr. Adan Rinaldi CO2 [Moles/Vol] 27.5 mmol/L Normal 21.0-32.0 [facility] Comment on above: Performed By: #### H STROPN, BMP #### [facility] [address] [place] [address] Dr. Adan Rinaldi Creatinine [Mass/Vol] 1.59 mg/dL Critically high 0.55-1.02 [facility] Comment on above: Performed By: #### H STROPN, BMP #### [facility] [address] [address] [address] Adan Rinaldi EGFR-AF TOGOLESE 37 mL/min/1.73m2 Critically low >=60 [facility] Comment on above: Performed By: #### H STROPN, BMP #### [facility] [address] [address] [address] Adan Rinaldi EGFR-NON AF TOGOLESE 31 mL/min/1.73m2 Critically low >=60 [facility] Comment on above: Performed By: #### H STROPN, BMP #### [facility] [address] [address] [address] Adan Rinaldi Globulin (S) [Mass/Vol] 4.1 g/dL Normal [facility] Comment on above: Performed By: #### H LYNNE, BMP #### [facility] [address] [address] [address] Adan Rinaldi Glucose [Mass/Vol] 122 mg/dL Critically high 74-106 [facility] Comment on above: Performed By: #### H LYNNE, BMP #### [facility] [address] [address] [address] Adan Rinaldi Potassium [Moles/Vol] 4.3 mmol/L Normal 3.5-5.1 [facility] Comment on above: Performed By: #### H JACQUELINEPN, BMP #### [facility] [address] [address] [address] Adan Rinaldi Protein [Mass/Vol] 6.8 g/dL Normal 6.4-8.2 The [facility] Comment on above: Performed By: #### H STROPN, BMP #### [facility] [address] [address] [address] Adan Rinaldi Sodium [Moles/Vol] 137 mmol/L Normal 136-145 [facility] Comment on above: Performed By: #### H JACQUELINEPN, BMP #### [facility] [address] [address] [address] Adan Rinaldi Urea nitrogen [Mass/Vol] 62.0 mg/dL Critically high 7.0-18.0 [facility] Comment on above: Performed By: #### H STROPN, BMP #### [facility] [address] [place] [address] Dr. Adan Rinaldi Urea nitrogen/Creatinine [Mass ratio] 39.0 mg/mg Normal [facility] Comment on above: Performed By: #### H STROPN, BMP #### [facility] [address] [place] [address] Dr. Adan Rinaldi PROF CHEM 8 (BAS METB)on Anion gap [Moles/Vol] 14.7 mmol/L Normal [facility] Comment on above: Performed By: #### H STROPN, BMP #### [facility] [address] [place] [address] Dr. Adan Rinaldi Calcium [Mass/Vol] 8.2 mg/dL Critically low 8.5-10.1 [facility] Comment on above: Performed By: #### H STROPN, BMP #### [facility] [address] [place] [address] Dr. Adan Rinaldi Chloride [Moles/Vol] 102 mmol/L Normal 98-107 [facility] Comment on above: Performed By: #### H STROPN, BMP #### [facility] [address] [place] [address] Dr. Adan Rinaldi CO2 [Moles/Vol] 24.0 mmol/L Normal 21.0-32.0 [facility] Comment on above: Performed By: #### H STROPN, BMP #### [facility] [address] [place] [address] Dr. Adan Rinaldi Creatinine [Mass/Vol] 1.74 mg/dL Critically high 0.55-1.02 [facility] Comment on above: Performed By: #### H STROPN, BMP #### [facility] [address] [place] [address] Dr. Adan Rinaldi EGFR-AF TOGOLESE 34 mL/min/1.73m2 Critically low >=60 [facility] Comment on above: Performed By: #### H STROPN, BMP #### [facility] [address] [place] [address] Dr. Adan Rinaldi EGFR-NON AF TOGOLESE 28 mL/min/1.73m2 Critically low >=60 [facility] Comment on above: Performed By: #### H LYNNE, BMP #### [facility] [address] [place] [address] Dr. Adan Rinaldi Glucose [Mass/Vol] 160 mg/dL Critically high 74-106 [facility] Comment on above: Performed By: #### H LYNNE, BMP #### [facility] [address] [place] [address] Dr. Adan Rinaldi Potassium [Moles/Vol] 3.7 mmol/L Normal 3.5-5.1 [facility] Comment on above: Performed By: #### H LYNNE, BMP #### [facility] [address] [place] [address] Dr. Adan Rinaldi Sodium [Moles/Vol] 137 mmol/L Normal 136-145 [facility] Comment on above: Performed By: #### Igor BATISTA, BMP #### [facility] [address] [place] [address] Dr. Adan Rinladi Urea nitrogen [Mass/Vol] 51.0 mg/dL Critically high 7.0-18.0 [facility] Comment on above: Performed By: #### H LYNNE, BMP #### [facility] [address] [place] [address] Dr. Adan Rinaldi Urea nitrogen/Creatinine [Mass ratio] 29.3 mg/mg Normal [facility] Comment on above: Performed By: #### H LYNNE, BMP #### [facility] [address] [place] [address] Dr. Adan Rinaldi APTTon 05-16-2022 aPTT Coag (Bld) [Time] 29.9 s Normal 25.0-35.0 e [facility] Comment on above: Order Comment: No: [...] THIS PURPOSE. Performed By: #### 9 2097, [id number] #### [facility] [address] [place] [address], [facility] BASIC METABOLIC PANELon 08-2 Calcium [Mass/Vol] 8.2 mg/dL Low 8.6-10.3 The [facility] Comment on above: Order Comment: No: D o not add to previous draw Performed By: #### 0 0071, 81011 #### [facility] [address] [place] [address], [facility] Chloride [Moles/Vol] 103 mmol/L Normal 98-107 The [facility] Comment on above: Order Comment: No: D o not add to previous draw Performed By: #### 0 0071, [id number] #### [facility] [address] [place] [id number], [facility] CO2 [Moles/Vol] 22 mmol/L Normal 21-31 [facility] Comment on above: Order Comment: No: D o not add to previous draw Performed By: #### 0 0071, [id number] #### [facility] [address] [place] [address], [facility] Creatinine [Mass/Vol] 1.33 mg/dL High 0.60-1.20 The [facility] Comment on above: Order Comment: No: D o not add to previous draw Performed By: #### 0 0071, [id number] #### [facility] [address] [place] [id number], [facility] EGFR 39 ml/min/1.73sq m Abnormal >60 [facility] Comment on above: Order Comment: No: D o not add to previous draw Result Comment: The [facility]'s estimated glomerular filtration rate (eGFR) will no [...] of individuals. Performed By: #### 0 0071, [id number] #### [facility] [address] [place] [address], [facility] Glucose [Mass/Vol] 140 mg/dL High 70-100 [facility] Comment on above: Order Comment: No: D o not add to previous draw Performed By: #### 0 0071, 18365 #### [facility] [address] [place] [address], [facility] Potassium [Moles/Vol] 5.5 mmol/L High 3.5-5.1 The [facility] Comment on above: Order Comment: No: D o not add to previous draw Performed By: #### 0 0071, [id number] #### [facility] [address] [place] [address], [facility] Sodium [Moles/Vol] 133 mmol/L Low 136-145 [facility] Comment on above: Order Comment: No: D o not add to previous draw Performed By: #### 0 0071, 95831 #### [facility] [address] [place] [address], [facility] Urea nitrogen [Mass/Vol] 32 mg/dL High 7-25 The [facility] Comment on above: Order Comment: No: D o not add to previous draw Performed By: #### 0 0071, 27075 #### [facility] [address] [place] [address], [facility] CBC W/DIFFon 05-16-2022 ABS IMM GRANS 0.1 10*3/uL Normal 0.0-0.2 The [facility] Comment on above: Order Comment: No: D o not add to previous draw Performed By: #### 5 0103 #### [facility] [address] [place] [address], [facility] ABS NEUTROPHILS 8.7 10*3/uL High 1.6-7.6 The [facility] Comment on above: Order Comment: No: D o not add to previous draw Performed By: #### 5 0103 #### [facility] [address] [place] [id number], [facility] Basophils (Bld) [#/Vol] 0.0 10*3/uL Normal 0.0-0.2 The [facility] Comment on above: Order Comment: No: D o not add to previous draw Performed By: #### 5 0103 #### [facility] [address] [place] [address], [facility] Basophils/100 WBC (Bld) 0.3 % Normal 0.0-1.0 The [facility] Comment on above: Order Comment: No: D o not add to previous draw Performed By: #### 5 0103 #### [facility] [address] [place] [address], [facility] Eosinophils (Bld) [#/Vol] 0.0 10*3/uL Normal 0.0-0.5 The [facility] Comment on above: Order Comment: No: D o not add to previous draw Performed By: #### 5 3 #### [facility] [address] [place] [address], [facility] Eosinophils/100 WBC (Bld) 0.0 % Normal 0.0-6.0 The [facility] Comment on above: Order Comment: No: D o not add to previous draw Performed By: #### 5 0103 #### [facility] [address] [facility] [place] [address], [facility] Erythrocyte distribution width (RBC) [Ratio] 14.3 % Normal 11.5-15.0 The [facility] Comment on above: Order Comment: No: D o not add to previous draw Performed By: #### 5 0103 #### [facility] [address] [place] [address], [facility] Hematocrit (Bld) [Volume fraction] 26.9 % Low 36.0-45.0 The [facility] Comment on above: Order Comment: No: D o not add to previous draw Performed By: #### 5 3 #### [facility] [address] [place] [id number], [facility] Hemoglobin (Bld) [Mass/Vol] 8.5 g/dL Low 12.0-15.0 The [facility] Comment on above: Order Comment: No: D o not add to previous draw Performed By: #### 5 3 #### [facility] [address] [facility] [place] [address], [facility] IMMATURE GRANS 0.5 % Normal 0.0-1.0 The [facility] Comment on above: Order Comment: No: D o not add to previous draw Performed By: #### 5 3 #### [facility] [address] [facility] [place] [address], [facility] Lymphocytes (Bld) [#/Vol] 1.0 10*3/uL Low 1.2-4.0 The [facility] Comment on above: Order Comment: No: D o not add to previous draw Performed By: #### 5 102 #### [facility] [address] [facility] [place] [address], [facility] Lymphocytes/100 WBC (Bld) 8.9 % Low 20.0-45.0 The [facility] Comment on above: Order Comment: No: D o not add to previous draw Performed By: #### 5 0103 #### [facility] [address] [facility] [place] [address], [facility] MCH (RBC) [Entitic mass] 28.7 pg Normal 27.0-33.0 The [facility] Comment on above: Order Comment: No: D o not add to previous draw Performed By: #### 5 3 #### [facility] [address] [place] [address], [facility] MCHC (RBC) [Mass/Vol] 31.6 g/dL Low 32.0-35.0 The [facility] Comment on above: Order Comment: No: D o not add to previous draw Performed By: #### 5 0103 #### [facility] [address] [place] [id number], [facility] MCV (RBC) [Entitic vol] 90.9 fL Normal 82.0-98.0 The [facility] Comment on above: Order Comment: No: D o not add to previous draw Performed By: #### 5 0103 #### [facility] [address] [place] [address], [facility] Monocytes (Bld) [#/Vol] 0.9 10*3/uL Normal 0.1-1.0 The [facility] Comment on above: Order Comment: No: D o not add to previous draw Performed By: #### 5 0103 #### [facility] [address] [place] [id number], [facility] MONOS 8.7 % Normal 5.0-12.0 The [facility] Comment on above: Order Comment: No: D o not add to previous draw Performed By: #### 5 0103 #### [facility] [address] [place] [address], [facility] Neutrophils/100 WBC (Bld) 81.6 % High 40.0-72.0 The [facility] Comment on above: Order Comment: No: D o not add to previous draw Performed By: #### 5 0103 #### [facility] [address] [place] [id number], [facility] Nucleated RBC/100 WBC (Bld) [Ratio] 0 % Normal 0-0 The [facility] Comment on above: Order Comment: No: D o not add to previous draw Performed By: #### 5 0103 #### [facility] [address] [place] [address], [facility] PLAT CNT 227 10*3/uL Normal 150-400 The [facility] Comment on above: Order Comment: No: D o not add to previous draw Performed By: #### 5 0103 #### [facility] [address] [place] [address], [facility] RBC (Bld) [#/Vol] 2.96 10*6/uL Low 3.80-5.00 The [facility] Comment on above: Order Comment: No: D o not add to previous draw Performed By: #### 5 0103 #### [facility] [address] [facility] [place] [id number], [facility] WBC (Bld) [#/Vol] 10.63 10*3/uL High 4.00-10.60 The [facility] Comment on above: Order Comment: No: D o not add to previous draw Performed By: #### 5 0103 #### [facility] [address] [place] [id number], [facility] MAGNESIUM BLOODon 05-16-2022 Magnesium [Mass/Vol] 2.0 mg/dL Normal 1.9-2.7 The [facility] Comment on above: Order Comment: No: D o not add to previous draw Performed By: #### 0 0071, [id number] #### [facility] [address] [place] [address], [facility] POC GLUCOSE LABon 05-16-2022 Glucose [Mass/Vol] 205 mg/dL High 70-100 The [facility] Comment on above: Performed By: #### 5 0103 #### [facility] [address] [place] [address], [facility] Glucose [Mass/Vol] 175 mg/dL High 70-100 The [facility] Comment on above: Performed By: #### 5 0103 #### [facility] [address] [place] [address], [facility] POTASSIUM BLOODon 05-16-2022 Potassium [Moles/Vol] 4.9 mmol/L Normal 3.5-5.1 The [facility] Comment on above: Order Comment: No: D o not add to previous draw Performed By: #### 4 1406 #### [facility] [address] [place] [address], [facility] PROTHROMBIN TIMEon INR Coag (PPP) [Relative time] 1.16 {INR} Normal 0.91-1.16 The [facility] Comment on above: Order Comment: No: [...] CHEST 1995;[id number]. Performed By: #### 9 2096, 63100 #### [facility] [address] [place] [address], [facility] PT Coag (PPP) [Time] 14.8 s Normal 12.3-14.8 The [facility] Comment on above: Order Comment: No: D o not add to previous draw Result Comment: ALL RESULTS MUST BE INTERPRETED WITH RESPECT TO BLOOD DRAWING ARTIFACT OR DILUTION ERROR OF ANTICOAGULANT AT THE TIME OF SAMPLING. Performed By: #### 9 2096, [id number] #### [facility] [address] *MRSA/MSSA DNA NASALon 05-15 *MRSA/MSSA DNA NASAL Clinical Report: (D ) Specimen/Source: NASAL SWAB/NARES Collected: 05/15/2022 08:30 Status: Final Last Updated: 05/15/2022 14:49 MSSA DNA (Final) Negative MRSA DNA (Final) Negative Normal The [facility] Comment on above: Performed By: #### 9 2096, 09755 #### [facility] [address] HEMATOCRITon 05-15-2022 Hematocrit (Bld) [Volume fraction] 29.3 % Low 36.0-45.0 The [facility] Comment on above: Order Comment: No: D o not add to previous draw Performed By: #### 9 2096, 54067 #### [facility] [address] HEMOGLOBINon 05-15-2022 Hemoglobin (Bld) [Mass/Vol] 9.7 g/dL Low 12.0-15.0 The [facility] Comment on above: Order Comment: No: D o not add to previous draw Performed By: #### 9 2096, 55720 #### [facility] [address] HUMERUS LEFTon 05-15-2022 HUMERUS LEFT [facility] Department of Radiology [address] [place] [id number] Patient Name: ELIZ HEWITT : 1935 [...] fluoroscopy Electronically signed: Maribell Draper. Transcribed by: [email or web address], User Resident: Electronically Signed by: MARIBELL DRAPER @ 05/15/2022 11:44 AM Normal The [facility] Comment on above: Order Comment: No: D o not add to previous draw Operative Reporton Operative Report MR#: [id number] S [facility] Pt. Name: Eliz Hewitt Room #: 0C Discharge Date: Birthdate: 1935 OPERATIVE REPORT DATE OF SURGERY: 05/15/2022 SURGEON: Zana Max M.D. ASSISTANTS: 1. David Pino MD. 2. Hugo Ford MD. 3. Luis Enrique Fowler MD. PREOPERATIVE DIAGNOSIS: Left proximal humeral shaft [...] fracture reduction. We then placed our 10-hole Maximo proximal humerus plate and pinned this into [...] A/David Pino MD Date Trans: 05/15/2022 06:12 P/rabia [id number] Normal The [facility] POC GLUCOSE LABon 05-15-2022 Glucose [Mass/Vol] 77 mg/dL Normal 70-100 The [facility] Comment on above: Performed By: #### 5 0103 #### [facility] [address] Glucose [Mass/Vol] 73 mg/dL Normal 70-100 The [facility] Comment on above: Performed By: #### 5 0103 #### [facility] [address] [facility] [place] [address], [facility] Glucose [Mass/Vol] 63 mg/dL Low 70-100 The [facility] Comment on above: Performed By: #### 5 0103 #### [facility] [address] [place] [address], [facility] CBC AUTO DIFFon 05-13-2022 BASO # 0.1 103/ul Normal 0.0-0.1 [facility] Comment on above: Performed By: #### C VDTBH #### [facility] [address] [place] [address] Dr. Adan Rinaldi Basophils/100 WBC (Bld) 1.0 % Normal 0.2-2.0 [facility] Comment on above: Performed By: #### C VDTBH #### [facility] [address] [place] [address] Dr. Adan Rinaldi EO # 0.5 103/ul Normal 0.0-0.7 [facility] Comment on above: Performed By: #### C VDTBH #### [facility] [address] [place] [address] Dr. Adan Rinaldi Eosinophils/100 WBC (Bld) 6.9 % Normal 0.9-7.0 [facility] Comment on above: Performed By: #### C VDTBH #### [facility] [address] [place] [address] Dr. Adan Rinaldi Erythrocyte distribution width (RBC) [Ratio] 14.2 % Normal 11.0-15.0 [facility] Comment on above: Performed By: #### C VDTBH #### [facility] [address] [place] [address] Dr. Adan Rinaldi Hematocrit (Bld) [Volume fraction] 31.1 % Critically low 36.0-48.0 [facility] Comment on above: Performed By: #### C VDTBH #### [facility] [address] [address] [address] Adan Rinaldi Hemoglobin (Bld) [Mass/Vol] 9.9 g/dL Critically low 12.0-16.0 [facility] Comment on above: Performed By: #### C VDTBH #### [facility] [address] [address] [address] Adan Rinaldi IG # 0.02 10e3/ul Normal 0.00-0.03 [facility] Comment on above: Performed By: #### C VDTBH #### [facility] [address] [address] [address] Adan Rinaldi IG % 0.3 % Normal 0.0-0.5 [facility] Comment on above: Performed By: #### C VDTBH #### [facility] [address] [place] [address] Dr. Adan Rinaldi LYMPH # 1.6 103/ul Normal 1.2-3.8 [facility] Comment on above: Performed By: #### C VDTBH #### [facility] [address] [place] [address] Dr. Adan Rinaldi Lymphocytes/100 WBC (Bld) 22.1 % Normal 20.5-60.0 [facility] Comment on above: Performed By: #### C VDTBH #### [facility] [address] [place] [address] Dr. Adan Rinaldi MANUAL DIFF REQ NO Normal [facility] Comment on above: Performed By: #### C VDTBH #### [facility] [address] [place] [address] Dr. Adan Rinaldi MCH (RBC) [Entitic mass] 28.5 pg Normal 26.7-34.0 [facility] Comment on above: Performed By: #### C VDTBH #### [facility] [address] [place] [address] Dr. Adan Rinaldi MCHC (RBC) [Mass/Vol] 31.8 g/dL Normal 29.9-35.2 [facility] Comment on above: Performed By: #### C VDTBH #### [facility] [address] [place] [address] Dr. Adan Rinaldi MCV (RBC) [Entitic vol] 89.6 fL Normal 81.0-99.0 [facility] Comment on above: Performed By: #### C VDTBH #### [facility] [address] [place] [address] Dr. Adan Rinaldi MONO # 0.6 103/ul Normal 0.3-0.8 [facility] Comment on above: Performed By: #### C VDTBH #### [facility] [address] [place] [address] Dr. Adan Rinaldi Monocytes/100 WBC (Bld) 8.4 % Normal 1.7-12.0 [facility] Comment on above: Performed By: #### C VDTBH #### [facility] [address] [place] [address] Dr. Adan Rinaldi NEUT # 4.4 103/ul Normal 1.4-6.5 [facility] Comment on above: Performed By: #### C VDTBH #### [facility] [address] [place] [address] Dr. Adan Rinaldi Neutrophils/100 WBC (Bld) 61.3 % Normal 43.0-75.0 [facility] Comment on above: Performed By: #### C VDTBH #### [facility] [address] [place] [address] Dr. Adan Rinaldi Platelet mean volume (Bld) [Entitic vol] 9.1 fL Critically low 9.5-13.5 [facility] Comment on above: Performed By: #### C VDTBH #### [facility] [address] [place] [address] Dr. Adan Rinaldi PLT 215 103/ul Normal 150-450 [facility] Comment on above: Performed By: #### C VDTBH #### [facility] [address] [place] [address] Dr. Adan Rinaldi RBC 3.47 106/ul Critically low 4.20-5.40 [facility] Comment on above: Performed By: #### C VDTBH #### [facility] [address] [place] [address] Dr. Adan Rinaldi WBC 7.1 103/ul Normal 4.0-11.0 [facility] Comment on above: Performed By: #### C VDTBH #### [facility] [address] [place] [address] Dr. Adan Rinaldi MRSA NARES #1on 05-13-2022 MRSA NARES #1 Culture Observations: NO GROWTH OF MRSA AT 48 HOURS. Normal [facility] Comment on above: Performed By: #### P OCGLUC #### [facility] [address] [place] [address] Dr. Adan Rinaldi PROF CHEM 8 (BAS METB)on Anion gap [Moles/Vol] 11.6 mmol/L Normal [facility] Comment on above: Performed By: #### H STROPN, BMP #### [facility] [address] [place] [address] Dr. Adan Rinaldi Calcium [Mass/Vol] 8.8 mg/dL Normal 8.5-10.1 [facility] Comment on above: Performed By: #### H STROPN, BMP #### [facility] [address] [place] [address] Dr. Adan Rinaldi Chloride [Moles/Vol] 103 mmol/L Normal 98-107 [facility] Comment on above: Performed By: #### H STROPN, BMP #### [facility] [address] [place] [address] Dr. Adan Rinaldi CO2 [Moles/Vol] 25.9 mmol/L Normal 21.0-32.0 [facility] Comment on above: Performed By: #### H STROPN, BMP #### [facility] [address] [place] [address] Dr. Adan Rinaldi Creatinine [Mass/Vol] 1.37 mg/dL Critically high 0.55-1.02 [facility] Comment on above: Performed By: #### H STROPN, BMP #### [facility] [address] [place] [address] Dr. Adan Rinaldi EGFR-AF TOGOLESE 44 mL/min/1.73m2 Critically low >=60 [facility] Comment on above: Performed By: #### H LYNNE, BMP #### [facility] [address] [place] [address] Dr. Adan Rinaldi EGFR-NON AF TOGOLESE 37 mL/min/1.73m2 Critically low >=60 [facility] Comment on above: Performed By: #### H LYNNE, BMP #### [facility] [address] [place] [address] Dr. Adan Rinaldi Glucose [Mass/Vol] 165 mg/dL Critically high 74-106 [facility] Comment on above: Performed By: #### H LYNNE, BMP #### [facility] [address] [place] [address] Dr. Adan Rinaldi Potassium [Moles/Vol] 4.5 mmol/L Normal 3.5-5.1 [facility] Comment on above: Performed By: #### H LYNNE, BMP #### [facility] [address] [place] [address] Dr. Adan Rinaldi Sodium [Moles/Vol] 136 mmol/L Normal 136-145 [facility] Comment on above: Performed By: #### H LYNNE, BMP #### [facility] [address] [place] [address] Dr. Adan Rinaldi Urea nitrogen [Mass/Vol] 32.0 mg/dL Critically high 7.0-18.0 [facility] Comment on above: Performed By: #### H LYNNE, BMP #### [facility] [address] [place] [address] Dr. Adan Rinaldi Urea nitrogen/Creatinine [Mass ratio] 23.4 mg/mg Normal [facility] Comment on above: Performed By: #### H LYNNE, BMP #### [facility] [address] [place] [address] Dr. Adan Rinaldi PROTIMEon 05-13-2022 INR Coag (PPP) [Relative time] 1.00 {INR} Normal [facility] Comment on above: Performed By: #### H LYNNE, BMP #### [facility] [address] [place] [address] Dr. Adan Rinaldi INR GUIDELINES SEE BELOW Normal [facility] Comment on above: Result Comment: DAVID RED INR: 2.0 - 3.0 CONDITIONS NOT LISTED BELOW 2.5 - 3.5 FOR PROSTHETIC HEART VALVE REPLACEMENT 2.5 - 3.5 RECURRENT THROMBOSIS Performed By: #### H JACQUELINEPN, BMP #### [facility] [address] [place] [address] Dr. Adan Rinaldi PT Coag (PPP) [Time] 10.8 s Normal 9.0-11.6 [facility] Comment on above: Performed By: #### H LYNNE, BMP #### [facility] [address] [place] [address] Dr. Adan Rinaldi PTTon 05-13-2022 aPTT Coag (Bld) [Time] 25.8 s Normal 22.3-36.2 [facility] Comment on above: Performed By: #### H LYNNE, BMP #### [facility] [address] [place] [address] Dr. Adan Rinaldi HUMERUS LEFTon 05-04-2022 HUMERUS LEFT [facility] Department of Radiology [address] [place] [id number] Patient Name: ELIZ HEWITT : 1935 Sex: F Age: Race: White Pt. Location: Patient Status: Ordered Date: 05/04/2022 10:00:00 AM [...] configuration. Electronically signed: Gm Garrison. Transcribed by: [email or web address], User Resident: Electronically Signed by: GM GARRISON @ 05/04/2022 03:08 PM Normal [facility] Comment on above: Order Comment: No: D o not add to previous draw BNPon 03-25-2022 Natriuretic peptide B (Bld) [Mass/Vol] 4401.0 pg/mL Critically high <=1,800.0 [facility] Comment on above: Performed By: #### P OCGLUC #### [facility] [address] [place] [address] Dr. Adan Rinaldi PROF CHEM 8 (BAS METB)on Anion gap [Moles/Vol] 13.4 mmol/L Normal [facility] Comment on above: Performed By: #### H STROPN, BMP #### [facility] [address] [place] [address] Dr. Adan Rinaldi Calcium [Mass/Vol] 8.6 mg/dL Normal 8.5-10.1 [facility] Comment on above: Performed By: #### H STROPN, BMP #### [facility] [address] [address] [address] Adan Rinaldi Chloride [Moles/Vol] 104 mmol/L Normal 98-107 [facility] Comment on above: Performed By: #### H STROPN, BMP #### [facility] [address] [address] [address] Adan Rinaldi CO2 [Moles/Vol] 24.4 mmol/L Normal 21.0-32.0 [facility] Comment on above: Performed By: #### H STROPN, BMP #### [facility] [address] [address] [address] Adan Rinaldi Creatinine [Mass/Vol] 1.60 mg/dL Critically high 0.55-1.02 [facility] Comment on above: Performed By: #### H STROPN, BMP #### [facility] [address] [address] [address] Adan Rinaldi EGFR-AF TOGOLESE 37 mL/min/1.73m2 Critically low >=60 [facility] Comment on above: Performed By: #### H STROPN, BMP #### [facility] [address] [address] [address] Adan Rinaldi EGFR-NON AF TOGOLESE 31 mL/min/1.73m2 Critically low >=60 [facility] Comment on above: Performed By: #### H STROPN, BMP #### [facility] [address] [address] [address] Adan Rinaldi Glucose [Mass/Vol] 251 mg/dL Critically high 74-106 [facility] Comment on above: Performed By: #### H STROPN, BMP #### [facility] [address] [address] [address] Adan Rinaldi Potassium [Moles/Vol] 4.8 mmol/L Normal 3.5-5.1 [facility] Comment on above: Performed By: #### H STROPN, BMP #### [facility] [address] [address] [address] Adan Rinaldi Sodium [Moles/Vol] 137 mmol/L Normal 136-145 [facility] Comment on above: Performed By: #### H STROPN, BMP #### [facility] [address] [place] [address] Dr. Adan Rinaldi Urea nitrogen [Mass/Vol] 46.0 mg/dL Critically high 7.0-18.0 [facility] Comment on above: Performed By: #### H STROPN, BMP #### [facility] [address] [place] [address] Dr. Adan Rinaldi Urea nitrogen/Creatinine [Mass ratio] 28.8 mg/mg Normal [facility] Comment on above: Performed By: #### H STROPN, BMP #### [facility] [address] [place] [address] Dr. Adan Rinaldi BNPon 01-30-2022 Natriuretic peptide B (Bld) [Mass/Vol] 3098.0 pg/mL Critically high <=1,800.0 [facility] Comment on above: Performed By: #### P OCGLUC #### [facility] [address] [place] [address] Dr. Adan Rinaldi PROF CHEM 8 (BAS METB)on Anion gap [Moles/Vol] 11.5 mmol/L Normal [facility] Comment on above: Performed By: #### P OCGLUC #### [facility] [address] [place] [address] Dr. Adan Rinaldi Calcium [Mass/Vol] 8.9 mg/dL Normal 8.5-10.1 [facility] Comment on above: Performed By: #### P OCGLUC #### [facility] [address] [place] [address] Dr. Adan Rinaldi Chloride [Moles/Vol] 98 mmol/L Normal 98-107 [facility] Comment on above: Performed By: #### P OCGLUC #### [facility] [address] [place] [address] Dr. Adan Rinaldi CO2 [Moles/Vol] 29.7 mmol/L Normal 21.0-32.0 [facility] Comment on above: Performed By: #### P OCGLUC #### [facility] [address] [address] [address] Adan Rinaldi Creatinine [Mass/Vol] 1.58 mg/dL Critically high 0.55-1.02 [facility] Comment on above: Performed By: #### P OCGLUC #### [facility] [address] [address] [address] Adan Rinaldi EGFR-AF TOGOLESE 38 mL/min/1.73m2 Critically low >=60 [facility] Comment on above: Performed By: #### P OCGLUC #### [facility] [address] [address] [address] Adan Rinaldi EGFR-NON AF TOGOLESE 31 mL/min/1.73m2 Critically low >=60 [facility] Comment on above: Performed By: #### P OCGLUC #### [facility] [address] [address] [address] Adan Rinaldi Glucose [Mass/Vol] 108 mg/dL Critically high 74-106 [facility] Comment on above: Performed By: #### P OCGLUC #### [facility] [address] [address] [address] Adan Rinaldi Potassium [Moles/Vol] 4.2 mmol/L Normal 3.5-5.1 [facility] Comment on above: Performed By: #### P OCGLUC #### [facility] [address] [address] [address] Adan Rinaldi Sodium [Moles/Vol] 135 mmol/L Critically low 136-145 [facility] Comment on above: Performed By: #### P OCGLUC #### [facility] [address] [address] [address] Adan Rinaldi Urea nitrogen [Mass/Vol] 47.0 mg/dL Critically high 7.0-18.0 [facility] Comment on above: Performed By: #### P OCGLUC #### [facility] [address] [address] [address] Adan Rinaldi Urea nitrogen/Creatinine [Mass ratio] 29.7 mg/mg Normal [facility] Comment on above: Performed By: #### P OCGLUC #### [facility] [address] [place], [place] [address] Dr. Adan Rinaldi CBC COMPLETE BLOOD COUNTon 01-14-2022 Erythrocyte distribution width (RBC) [Ratio] 14.0 % Normal 11.5-15.0 [facility] Comment on above: Order Comment: No: D o not add to previous draw Performed By: #### 9 2096, [id number] #### [facility] [address] [place] [address], [place] Hematocrit (Bld) [Volume fraction] 29.4 % Low 36.0-45.0 [facility] Comment on above: Order Comment: No: D o not add to previous draw Performed By: #### 9 2096, [id number] #### [facility] [address] [place] [address], [place] Hemoglobin (Bld) [Mass/Vol] 9.6 g/dL Low 12.0-15.0 [facility] Comment on above: Order Comment: No: D o not add to previous draw Performed By: #### 2096, #### [facility] [address] [place] [address], [place] MCH (RBC) [Entitic mass] 29.3 pg Normal 27.0-33.0 [facility] Comment on above: Order Comment: No: D o not add to previous draw Performed By: #### 2096, [id number] #### [facility] [address] [place] [address], [place] MCHC (RBC) [Mass/Vol] 32.7 g/dL Normal 32.0-35.0 [facility] Comment on above: Order Comment: No: D o not add to previous draw Performed By: #### 9 2096, [id number] #### [facility] [address] [place] [address], [place] MCV (RBC) [Entitic vol] 89.6 fL Normal 82.0-98.0 [facility] Comment on above: Order Comment: No: D o not add to previous draw Performed By: #### 9 2096, 61805 #### [facility] [address] [place] [address], [facility] Nucleated RBC/100 WBC (Bld) [Ratio] 0 % Normal 0-0 [facility] Comment on above: Order Comment: No: D o not add to previous draw Performed By: #### 9 2096, #### [facility] [address] [place] [address], [place] PLAT CNT 219 10*3/uL Normal 150-400 [facility] Comment on above: Order Comment: No: D o not add to previous draw Performed By: #### 9 2096, #### [facility] [address] [place] [address], [facility] RBC (Bld) [#/Vol] 3.28 10*6/uL Low 3.80-5.00 The [facility] Comment on above: Order Comment: No: D o not add to previous draw Performed By: #### 9 2096, 49625 #### [facility] [address] [place] [address], [place] WBC (Bld) [#/Vol] 10.45 10*3/uL Normal 4.00-10.60 [facility] Comment on above: Order Comment: No: D o not add to previous draw Performed By: #### 9 2096, #### [facility] [address] [place] [address], [place] COMP METABOLIC PANELon 01-14 Albumin [Mass/Vol] 3.5 g/dL Normal 3.5-5.7 [facility] Comment on above: Order Comment: No: D o not add to previous draw Performed By: #### 9 2096, [id number] #### [facility] [address] [place] [address], [place] ALKALINE PHOSPH 62 IU/L Normal 34-104 [facility] Comment on above: Order Comment: No: D o not add to previous draw Performed By: #### 9 2096, #### [facility] [address] [place] [address], [place] ALT [Catalytic activity/Vol] 5 U/L Low 7-52 [facility] Comment on above: Order Comment: No: D o not add to previous draw Performed By: #### 9 2096, #### [facility] [address] [place] [address], [place] AST [Catalytic activity/Vol] 23 U/L Normal 13-39 [facility] Comment on above: Order Comment: No: D o not add to previous draw Performed By: #### 9 2096, #### [facility] [address] [place] [address], [place] Bilirubin [Mass/Vol] 0.4 mg/dL Normal 0.3-1.0 [facility] Comment on above: Order Comment: No: D o not add to previous draw Performed By: #### 9 2096, #### [facility] [address] [place] [address], [place] Calcium [Mass/Vol] 8.9 mg/dL Normal 8.6-10.3 [facility] Comment on above: Order Comment: No: D o not add to previous draw Performed By: #### 9 2096, #### [facility] [address] [place] [address], [place] Chloride [Moles/Vol] 104 mmol/L Normal 98-107 [facility] Comment on above: Order Comment: No: D o not add to previous draw Performed By: #### 2096, #### [facility] [address] [place] [address], [place] CO2 [Moles/Vol] 26 mmol/L Normal 21-31 [facility] Comment on above: Order Comment: No: D o not add to previous draw Performed By: #### 9 2096, [id number] #### [facility] [address] [place] [address], [place] Creatinine [Mass/Vol] 1.79 mg/dL High 0.60-1.20 [facility] Comment on above: Order Comment: No: D o not add to previous draw Performed By: #### 9 2096, #### [facility] [address] [place] [address], [facility] eGFR- 33 ml/min/1.73sq m Abnormal >60 [facility] Comment on above: Order Comment: No: D o not add to previous draw Result Comment: Calc ulation may not be valid for patients over 70 years Performed By: #### 9 2096, [id number] #### [facility] [address] [place] [address], [facility] eGFR- non- 27 ml/min/1.73sq m Abnormal >60 [facility] Comment on above: Order Comment: No: D o not add to previous draw Result Comment: Calc ulation may not be valid for patients over 70 years Performed By: #### 9 2096, 23229 #### [facility] [address] [place] [address], [place] Glucose [Mass/Vol] 49 mg/dL Critically low 70-100 Th e [facility] Comment on above: Order Comment: No: D o not add to previous draw Result Comment: M-CR ITICAL RESULT(S) REVIEWED, CALLED TO AND READ BACK BY ETELVINA PATEL AT 0651 Performed By: #### 9 2096, 27524 #### [facility] [address] [place] [address], [place] Potassium [Moles/Vol] 3.5 mmol/L Normal 3.5-5.1 [facility] Comment on above: Order Comment: No: D o not add to previous draw Performed By: #### 9 2096, 08029 #### [facility] [address] [place] [address], [facility] Protein [Mass/Vol] 6.9 g/dL Normal 6.0-8.3 The [facility] Comment on above: Order Comment: No: D o not add to previous draw Performed By: #### 9 2096, 21505 #### [facility] [address] [place] [address], [facility] Sodium [Moles/Vol] 139 mmol/L Normal 136-145 [facility] Comment on above: Order Comment: No: D o not add to previous draw Performed By: #### 9 2096, 29751 #### [facility] [address] [place] [address], [facility] Urea nitrogen [Mass/Vol] 58 mg/dL High 7-25 [facility] Comment on above: Order Comment: No: D o not add to previous draw Performed By: #### 9 2096, 51028 #### [facility] [address] [place] [address], [facility] Cardiovascular Lab Reporton 01-14-2022 Cardiovascular Lab Report [facility] #: [id number] Physician: Tanisha Fairbanks Department of [facility] Date: 01/13/2022 Division of Birthdate: 1935 Cardiology Room #: 3CD [id number] Adult Cardiovascular Services [facility] [address] [facility] [address] [place], [place] [address] Cardiovascular Laboratory Report INDICATION: The patient is [...] the aortic valve. She was recommended TAVR [id number] procedure for management of her severe symptomatic [...] right common femoral artery using 2 crossing 6-British ProGlide devices. 6. Angio-Seal closure in the left common femoral artery. 7. Placement of a temporary pacemaker wire. INTERVENTIONAL CARDIOLOGY LOG BRANDER: Tanisha Arellano M.D. CARDIOTHORACIC SURGERY LOG BRANDER: Marcello Gregory M.D. SKIVING MACHINE OPERATOR: Ramon Mejia M.D. METHODS: Procedure was explained to the patient with risks and benefits. She signed the consent. She was brought to labor relations representative in a fasting state. The procedure was performed under conscious sedation in the labor relations representative. Both groin areas were prepped and draped in usual fashion. Micropuncture technique was used for access in the right common femoral artery under ultrasound guidance. Micropuncture inner cannula angiography was performed followed by upsizing to a 6-British x 11 cm sheath. Access was obtained using same technique in the left common femoral artery and after the inner cannula angiography, the access was upsized to a 6-British x 11 cm sheath. Access was obtained also in the left common femoral vein using same technique and a 6-British x 11 cm sheath was placed. Preclosure was performed in the right common femoral artery using 2 crossing ProGlide devices followed by upsizing to a 10-British by 11 cm sheath. A 5-British balloon temporary pacemaker wire was advanced through the femoral venous sheath into the right ventricular apex and adequate capture was confirmed. A 6-British XB 3.0 guiding catheter was advanced through [...] during the rest of the procedure. The 6-British Multipurpose catheter was then advanced through the right common femoral access to the descending aorta over a J wire and the multipurpose catheter was then used to place a Lunderquist wire, which was used to upsize the access to the 14-British Medrano E sheath, which was secured in place. We crossed the bioprosthetic prosthesis using a combination of a 6-British AL1 diagnostic catheter and a stiff straight Glidewire after additional attempts using a 6-British JR4 diagnostic catheter and a 6-British multipurpose catheter. After crossing the valve, the AL1 catheter was advanced and an exchange length wire was placed and a 6-British angled pigtail catheter was advanced to the [...] w (more content not included)... Normal The [facility] MAGNESIUM BLOODon 01-14-2022 Magnesium [Mass/Vol] 2.4 mg/dL Normal 1.9-2.7 The [facility] Comment on above: Order Comment: No: D o not add to previous draw Performed By: #### 9 [id number], [id number] #### [facility] [address] [address], [facility] Operative Reporton 2 Operative Report MR#: [id number] I [facility] Pt. 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 OPERATION: Valve in valve transcatheter aortic valve replacement with 20 mm Enoch ultra valve. CO-SURGEON: Tanisha Arellano M.D. CORK CUTTER: Dr. Mejia. ANESTHESIA: MAC. INDICATIONS: This is an 86-year-old female with severe mitral stenosis and bioprosthetic aortic valve stenosis, who was recommended a valve in valve TAVR followed by potential intervention of mitral valve. PROCEDURE IN DETAIL: The patient was brought into the labor relations representative and prepped and draped in the routine fashion. 1% lidocaine was infiltrated in both groins and percutaneous access was achieved with ultrasound guidance in both groins with a 6-British sheaths. A temporary transvenous pacemaker inserted through the right femoral vein and tested for later use. The pigtail catheter was inserted into the ascending aorta and then the patient was heparinized. The right femoral sheath was upgraded to a 14-British sheath. Over a Lunderquist wire, an L4 [...] Marcello Gregory MD 01/15/2022 02:09 P Marcello Gregory MD Date Dict: 01/13/2022/05:18 P/Marcello Gregory MD Date Trans: 01/14/2022 03:29 A/mmmichelle [id number] Normal The [facility] POC GLUCOSE LABon 01-14-2022 Glucose [Mass/Vol] 165 mg/dL High 70-100 The [facility] Comment on above: Performed By: #### 5 [id number] #### [facility] [address] [place] [address], [place] Glucose [Mass/Vol] 166 mg/dL High 70-100 The [facility] Comment on above: Performed By: #### 9 2096, [id number] #### [facility] [address] [place] [address], [place] POC GLUCOSE LABon 01-13-2022 Glucose [Mass/Vol] 266 mg/dL High 70-100 The [facility] Comment on above: Performed By: #### 8 [id number] #### [facility] [address] [place] [address], [place] Glucose [Mass/Vol] 196 mg/dL High 70-100 The [facility] Comment on above: Performed By: #### 9 [id number], [id number] #### [facility] [address] [place] [address], [place] Glucose [Mass/Vol] 106 mg/dL High 70-100 The [facility] Comment on above: Performed By: #### 9 2096, [id number] #### [facility] [address] [place] [address], [facility] TYPE AND SCREENon 01-13-2022 ABO INTERPRETATION A Normal The [facility] Comment on above: Performed By: #### 9 2096, [id number] #### [facility] [address] [place] [address], [facility] RH INTERPRETATION Positive Normal [facility] Comment on above: Performed By: #### 9 2096, [id number] #### [facility] [address] [place] [address], [facility] CREATININE BLOODon 2 Creatinine [Mass/Vol] 1.80 mg/dL High 0.60-1.20 The [facility] Comment on above: Performed By: #### 2 5656 #### [facility] [address] [facility] [place] [address], [facility] eGFR- 33 ml/min/1.73sq m Abnormal >60 The [facility] Comment on above: Result Comment: Calc ulation may not be valid for patients over 70 years Performed By: #### 2 5656 #### [facility] [address] [facility] [place] [address], [facility] eGFR- non- 27 ml/min/1.73sq m Abnormal >60 The [facility] Comment on above: Result Comment: Calc ulation may not be valid for patients over 70 years Performed By: #### 2 5656 #### [facility] [address] [facility] [place] [address], [facility] CT ABDOMEN AND PELVIS WO CON TRASTon 12-19-2021 CT ABDOMEN AND PELVIS WO CONTRAST [facility] Department of Radiology [address] [place] [id number] Patient Name: ELIZ HEWITT : 1935 Sex: F Age: Race: White Pt. Location: Patient Status: D Ordered Date: 11/18/2021 11:30:00 AM Completed Date: 12/19/2021 12:04 PM Requesting Provider: DAVEY CARRASCO Attending Provider: DAVEY CARRASCO Report Copy To: YOKO HELMS Signs & Symptoms: I35.0 Nonrheumatic aortic (valve) stenosis I10 no contrast per davey carrasco due to poor gfr History: [place] labs will need done *patient son cannot [...] the right sided abdomen are excluded from oateu-gm-nrcu and not imaged Grossly, the imaged portions [...] there is extensive atherosclerotic calcifications. Electronically signed: Contreras Polo. Transcribed by: [email or web address], User Resident: Electronically Signed by: CONTRERAS POLO @ 12/24/2021 08:56 AM Normal The [facility] Comment on above: Order Comment: No: D o not add to previous draw CT CHEST WO CONTRASTon 12-19 CT CHEST WO CONTRAST [facility] Department of Radiology [address] [place] [address] Patient Name: ELIZ HEWITT : 1935 Sex: F Age: Race: White Pt. Location: Patient Status: D Ordered Date: 11/18/2021 11:30:00 AM Completed Date: 12/19/2021 12:04 PM Requesting Provider: DAVEY CARRASCO Attending Provider: DAVEY CARRASCO Report Copy To: YOKO HELMS Signs & Symptoms: I35.0 Nonrheumatic aortic (valve) stenosis I10 History: [facility] labs will need done Comments: EKG gated-TAVR [...] 3. Cusped view, anterior view and no MARKING MACHINE TENDER-CAU view are saved. The annulus measures 19.1 [...] seen Electronically signed: Jessica Horton. Transcribed by: [email or web address], User Resident: Electronically Signed by: JESSICA HORTON @ 12/25/2021 02:14 PM Normal [facility] Comment on above: Order Comment: No: D o not add to previous draw Cardiovascular Lab Reporton 11-12-2021 Cardiovascular Lab Report [facility] Patient Name: [facility] MR #: [id number] Physician: Tanisha Garcia of Milind Arellano Medicine Service Date: 11/11/2021 Division of Birthdate: 1935 Cardiology Room #: Adult Cardiovascular Services [place] [address] Cardiovascular Laboratory Report INDICATION: The patient is [...] and her aortic valve stenosis has become [id number] by transthoracic echocardiogram. She was evaluated in [...] She signed consent. She was brought to labor relations representative in a fasting state. The right groin area was prepped and draped in usual the fashion. Micropuncture technique and ultrasound guidance were used for access in the right common femoral artery. Inner cannula angiography was performed followed by upsizing to a 4-British x 11 cm sheath. Access was obtained using the same technique in the right common femoral vein and a 6-British x 11 cm sheath was placed. A 6-British Wilalrd catheter was used for right catheterization with measurement of pressures and calculation of cardiac output using the estimated Belle method. Willard catheter was removed. Bilateral selective angiography was then performed using 4-British JL4 and JR4 diagnostic catheters. A 4-British straight pigtail catheter was advanced and placed [...] 11/15/2021 (more content not included)... Normal The [facility] Vital Signs Date Time Vital Sign Value Performing Clinician Facility 05-08-2024 13:00-0400 Body height 149.86 cm [facility] 05-08-2024 13:00-0400 Body mass index (BMI) [Ratio] 29.9 kg/m2 [facility] 05-08-2024 13:00-0400 Body weight 67.13 kg [facility] 05-08-2024 13:00-0400 Diastolic blood pressure 63 mm[Hg] [facility] 05-08-2024 13:00-0400 Heart rate 57 /min [facility] 05-08-2024 13:00-0400 SaO2% (BldA) [Mass fraction] 97 % [facility] 05-08-2024 13:00-0400 Systolic blood pressure 155 mm[Hg] [facility] 01-04-2024 15:30-0400 Body height 149.86 cm [facility] 01-04-2024 15:30-0400 Body mass index (BMI) [Ratio] 29.2 kg/m2 [facility] 01-04-2024 15:30-0400 Body weight 65.77 kg [facility] 01-04-2024 15:30-0400 Diastolic blood pressure 73 mm[Hg] [facility] 01-04-2024 15:30-0400 Heart rate 59 /min [facility] 01-04-2024 15:30-0400 SaO2% (BldA) [Mass fraction] 98 % [facility] 01-04-2024 15:30-0400 Systolic blood pressure 123 mm[Hg] [facility] 09-06-2023 13:00-0500 Body height 149.86 cm Yoko Helms Other [employer] [facility] [employer] Other 09-06-2023 13:00-0500 Body mass index (BMI) [Ratio] 29.69 kg/m2 Yoko Helms Other [employer] Other 09-06-2023 13:00-0500 Body weight 66.68 kg Yoko Helms Other [employer] Other 09-06-2023 13:00-0500 Diastolic blood pressure 81 mm[Hg] Yoko Helms Other [employer] Other 09-06-2023 13:00-0500 SaO2% (BldA) [Mass fraction] 97 % Yoko Helms Other [employer] Other 09-06-2023 13:00-0500 Systolic blood pressure 143 mm[Hg] Yoko Helms Other [employer] Other 06-07-2023 10:45-0400 Body height 149.86 cm Yoko Helms Other [employer] Other 06-07-2023 10:45-0400 Body mass index (BMI) [Ratio] 28.88 kg/m2 Yoko Helms Other [employer] Other 06-07-2023 10:45-0400 Body weight 64.86 kg Yoko Helms Other [employer] Other 06-07-2023 10:45-0400 Diastolic blood pressure 67 mm[Hg] Yoko Helms Other [employer] Other 06-07-2023 10:45-0400 Systolic blood pressure 117 mm[Hg] Yoko Helms Other [employer] Other 05-27-2023 15:30-0400 Body height 149.86 cm Yoko Helms Other [employer] Other 05-27-2023 15:30-0400 Body mass index (BMI) [Ratio] 29.69 kg/m2 Yoko Helms Other [employer] Other 05-27-2023 15:30-0400 Body weight 66.68 kg Yoko Helms Other [employer] Other 05-27-2023 15:30-0400 Diastolic blood pressure 66 mm[Hg] Ykoo Helms Other [employer] Other 05-27-2023 15:30-0400 Respiratory rate 12 /min Yoko Helsm Other [employer] Other 05-27-2023 15:30-0400 Systolic blood pressure 144 mm[Hg] Yoko Helms Other [employer] Other 01-25-2023 16:30-0400 Body height 149.86 cm Yoko Helms Other [employer] Other 01-25-2023 16:30-0400 Body mass index (BMI) [Ratio] 27.06 kg/m2 Yoko Helms Other [employer] Other 01-25-2023 16:30-0400 Body weight 60.78 kg Yoko Helms Other [employer] Other 01-25-2023 16:30-0400 Diastolic blood pressure 72 mm[Hg] Yoko Helms Other [employer] Other 01-25-2023 16:30-0400 SaO2% (BldA) [Mass fraction] 96 % Yoko Helms Other [employer] Other 01-25-2023 16:30-0400 Systolic blood pressure 122 mm[Hg] Yoko Helms Other [employer] Other 10-27-2022 16:15-0500 Body height 149.86 cm Yoko Helms Other [employer] Other 10-27-2022 16:15-0500 Body mass index (BMI) [Ratio] 27.26 kg/m2 Yoko Helms Other [employer] Other 10-27-2022 16:15-0500 Body weight 61.24 kg Yoko Helms Other [employer] Other 10-27-2022 16:15-0500 Diastolic blood pressure 60 mm[Hg] Yoko Helms Other [employer] Other 10-27-2022 16:15-0500 SaO2% (BldA) [Mass fraction] 97 % Yoko Helms Other [employer] Other 10-27-2022 16:15-0500 Systolic blood pressure 112 mm[Hg] Yoko Helms Other [employer] Other 09-24-2022 08:00-0500 Body temperature 98.4 [degF] DO Brad Harper Work Phone: [facility] 09-24-2022 08:00-0500 Diastolic blood pressure 74 mm[Hg] DO Brad Harper Work Phone: [facility] 09-24-2022 08:00-0500 Heart rate 79 /min DO Brad Harper Work Phone: [facility] 09-24-2022 08:00-0500 Respiratory rate 14 /min DO Brad Harper Work Phone: [facility] 09-24-2022 08:00-0500 SaO2% (BldA) [Mass fraction] 95 % DO Brad Harper Work Phone: [facility] 09-24-2022 08:00-0500 Systolic blood pressure 121 mm[Hg] DO Brad Harper Work Phone: [facility] 09-24-2022 06:00-0500 Body weight 62 kg DO Brad Harper Work Phone: [facility] 09-20-2022 12:13-0500 Body height 162.56 cm DO Brad Harper Work Phone: [facility] 09-20-2022 01:42-0500 Diastolic blood pressure 63 mm[Hg] DO Brad Harper Work Phone: [facility] 09-20-2022 01:42-0500 Heart rate 71 /min DO Brad Harper Work Phone: [facility] 09-20-2022 01:42-0500 Respiratory rate 20 /min DO Brad Harper Work Phone: [facility] 09-20-2022 01:42-0500 SaO2% (BldA) [Mass fraction] 95 % DO Brad Harper Work Phone: [facility] 09-20-2022 01:42-0500 Systolic blood pressure 139 mm[Hg] DO Brad Harper Work Phone: [facility] 09-19-2022 21:35-0500 Body temperature 97.5 [degF] DO Brad Harper Work Phone: [facility] 09-19-2022 20:46-0500 Body height 152.4 cm DO Brad Harper Work Phone: [facility] 09-19-2022 20:46-0500 Body weight 61.1 kg DO Brad Harper Work Phone: [facility] 09-05-2022 11:09-0500 Diastolic blood pressure 68 mm[Hg] Nurys Read MD Work Phone: [employer] 09-05-2022 11:09-0500 Heart rate 71 /min Nurys Read MD Work Phone: [employer] 09-05-2022 11:09-0500 Respiratory rate 16 /min Nurys Read MD Work Phone: [employer] 09-05-2022 11:09-0500 SaO2% (BldA) [Mass fraction] 97 % Nurys Read MD Work Phone: [employer] 09-05-2022 11:09-0500 Systolic blood pressure 179 mm[Hg] Nurys Read MD Work Phone: [employer] 09-04-2022 14:02-0500 Heart rate 59 /min Nurys Read MD Work Phone: [employer] 09-04-2022 00:35-0500 Body temperature 97.59 [degF] Nurys Read MD Work Phone: [employer] 08-02-2022 14:30-0400 Body height 160.02 cm Flower Olexa Other [employer] Other 04-21-2022 14:30-0400 Body mass index (BMI) [Ratio] 25.68 kg/m2 [employer] Other [employer] Other 04-21-2022 14:30-0400 Body weight 65.77 kg Flower Olexa Other [employer] Other 07-24-2021 16:00-0400 Body height 160.02 cm Flower Olexa Other [employer] Other 07-24-2021 16:00-0400 Body mass index (BMI) [Ratio] 25.79 kg/m2 Flower [employer] Other [employer] Other 07-24-2021 16:00-0400 Body weight 66.04 kg Flower Olexa Other [employer] Other 06-10-2021 14:30-0400 Body height 160.02 cm Flower Olexa Other [employer] Other 06-10-2021 14:30-0400 Body mass index (BMI) [Ratio] 26.04 kg/m2 Flower O[employer] Other [employer] Other 06-10-2021 14:30-0400 Body weight 66.68 kg Flower Olexa Other [employer] Other Encounters Encounter Date Encounter Type Care Provider Facility Start: 05-08-2024 End: 05-08-2024 ambulatory [facility] Work Phone: Start: 05-08-2024 End: 05-08-2024 Patient encounter procedure [facility] Work Phone: Start: 04-05-2024 Non-patient / Non-visit [facility] Work Phone: Start: 03-03-2024 End: 03-03-2024 ambulatory [facility] Start: 01-04-2024 End: 01-04-2024 ambulatory [facility] Work Phone: Start: 01-04-2024 End: 01-04-2024 Patient encounter procedure [facility] Work Phone: Start: 12-01-2023 Non-patient / Non-visit [facility] Work Phone: Start: 11-01-2023 End: 11-01-2023 ambulatory [facility] Start: 09-06-2023 End: 09-06-2023 ambulatory Yoko Helms Other [employer] Other Start: 09-06-2023 Office outpatient vi sit 15 minutes Yoko Helms [facility] Start: 08-11-2023 End: 08-11-2023 ambulatory [facility] Start: 08-06-2023 End: 08-06-2023 ambulatory Yoko Helms Other [employer] Other Start: 08-06-2023 Telephone encounter Yoko Helms [facility] Start: 07-21-2023 End: 07-21-2023 ambulatory Yoko Helms Other [employer] Other Start: 07-21-2023 Telephone encounter Yoko Helms [facility] Start: 07-15-2023 End: 07-15-2023 ambulatory [facility] Start: 06-07-2023 End: 06-07-2023 ambulatory [facility] Other Start: 06-07-2023 Patient encounter procedure Yoko Helms [facility] Start: 05-27-2023 End: 05-27-2023 ambulatory Yoko Scooter Other [employer] Other Start: 05-27-2023 Office outpatient vi sit 25 minutes Yoko Scooter [facility] Start: 01-27-2023 End: 01-27-2023 ambulatory Yoko Scooter Other [employer] Other Start: 01-27-2023 Telephone encounter Yoko Scooter [facility] Start: 01-25-2023 End: 01-25-2023 ambulatory Yoko Scooter Other [employer] Other Start: 01-25-2023 Office outpatient vi sit 25 minutes Yoko Helms [facility] Start: 01-14-2023 End: 01-15-[address] TANISHA ARELLANO Facility:[facility] Start: 12-15-2022 End: 12-15-2022 ambulatory Yoko Helms Other [employer] Other Start: 12-15-2022 Telephone encounter Yoko Scooter [facility] Start: 11-30-2022 Postop follow up vis it related to original px Asad Pollard [facility] Start: 11-30-2022 End: 11-30-2022 ambulatory Asad Pollard Facility:[facility] Start: 11-30-2022 End: 11-30-2022 ambulatory DO Brad Jaquez [facility] Work Phone: Start: 11-30-2022 End: 11-30-2022 Patient encounter procedure DO Brad [facility] Start: 11-18-2022 End: 11-19-[address] TANISHA ARELLANO Facility:[facility] Start: 10-27-2022 End: 10-27-2022 ambulatory Yoko Helms Other [employer] Other Start: 10-27-2022 Office outpatient vi sit 25 minutes Yoko Helms [facility] Start: 10-26-2022 End: 10-26-2022 Patient encounter procedure DO Brad [facility] Start: 10-26-2022 End: 10-26-2022 ambulatory Asad Valdivia [employer] Other Start: 10-26-2022 Office outpatient vi sit 15 minutes Asad Pollard [facility] Start: 10-23-2022 End: 10-23-2022 ambulatory Yoko Helms Other [employer] Other Start: 10-23-2022 Telephone encounter Yoko Helms [facility] Start: 10-22-2022 End: 10-22-2022 ambulatory Yoko Helms Other [employer] Other Start: 10-22-2022 Telephone encounter Yoko Helms [facility] Start: 10-19-2022 End: 10-19-2022 ambulatory Yoko Helms Other [employer] Other Start: 10-19-2022 Telephone encounter Yoko Helms [facility] Start: 10-07-2022 End: 10-07-2022 ambulatory Yoko Helms Other [employer] Other Start: 10-07-2022 Initial nursing faci lity care/day 35 minutes Yoko Helms [facility] Start: 10-03-2022 End: 10-05-2022 Evaluation and management of inpatient DR MARELY ALVES Facility: Start: 10-02-2022 End: 10-02-2022 ambulatory Yoko Helms Other [employer] Other Start: 10-02-2022 Telephone encounter Yoko Helms [facility] Start: 09-20-2022 End: 09-24-2022 Evaluation and management of inpatient Yoko Helms Facility:[facility] Start: 09-19-2022 End: 01-05-2023 Evaluation and management of inpatient DO Brad Harper Work Phone: [facility] Work Phone: Start: 09-08-2022 End: 09-09-[address] YOKO HELMS Facility:[facility] Start: 09-07-2022 Telephone encounter Oswaldo Lyons DDS Work Phone: [facility] Start: 09-05-2022 E.D. Visit Jessica Carlos Narayan [facility] [employer] Work Start: 09-04-2022 ambulatory Oswaldo Mccall DDS Work Phone: [facility] Start: 09-04-2022 Letter encounter BetinaArpit Wilkins DO Work Phone: [facility] Start: 09-04-2022 End: 09-05-2022 Emergency department patient visit IP DENTISTRY ADULT CONSULT Facility:[facility] Start: 09-03-2022 Emergency department patient visit YOKO HELMS Facility:[facility] Start: 09-03-2022 End: 09-05-2022 Evaluation and management of inpatient Nurys Read MD Work Phone: [facility] Emergency Medicine Start: 09-03-2022 End: 09-03-2022 E.D. Visit Pita Stuart BAKERDash [facility] Social W ork Comment on above: Trauma/complex Medic al Situation Start: 08-10-2022 End: 08-11-[address] YOKO HELMS Facility:[facility] Start: 07-29-2022 End: 07-30-[address] YOKO HELMS Facility:[facility] Start: 05-20-2022 End: 05-20-2022 ambulatory CODY Munson Facility:[facility] Start: 05-18-2022 End: 05-19-[address] DOCTOR HOOKER Facility:[facility] Start: 05-15-2022 End: 05-16-2022 ambulatory JAZMINE TREVINO Facility:[facility] Start: 05-15-2022 Encounter for other specified special examinations DR ZANA MAX [facility] Start: 05-13-2022 End: 05-14-[address] ZANA MAX Facility:[facility] Start: 05-13-2022 End: 05-14-2022 Encounter for other specified special examinations DR ZANA MAX Facility:[facility] Start: 04-22-2022 End: 04-22-2022 ambulatory Flower Olexa Other [employer] Other Start: 04-22-2022 Telephone encounter Flower Olexa [facility] Start: 04-21-2022 End: 04-22-2022 ambulatory FLOWER OLEXA [employer] Other Start: 04-21-2022 Office outpatient vi sit 25 minutes Flower Olexa [facility] Start: 03-25-2022 End: 03-26-[address] TANISHA ARELLANO Facility:[facility] Start: 03-11-2022 End: 08-26-[address] ALBINA BROWER Facility:[facility] Start: 02-17-2022 End: 02-18-2022 ambulatory YOKO HELMS Facility:[facility] Start: 01-30-2022 End: 01-31-2022 ambulatory BRETT HEWITT Facility:[facility] Start: 01-13-2022 End: 01-14-2022 Evaluation and management of inpatient YOKO HELMS Facility:[facility] Start: 12-19-2021 End: 12-20-2021 ambulatory YOKO EHLMS Facility:[facility] Start: 11-25-2021 End: 11-26-2021 ambulatory YOKO HELMS Facility:[facility] Start: 11-11-2021 End: 11-12-2021 ambulatory YOKO HELMS Facility:[facility] Start: 07-24-2021 End: 07-24-2021 ambulatory Flower Olexa Other [employer] Other Start: 07-24-2021 Postop follow up vis it related to original px Flower Olexa [facility] Start: 06-10-2021 Postop follow up vis it related to original px Flower Olexa [facility] Procedures Date Procedure Procedure Detail Performing Clinician Start: 11-30-2022 Plain X-ray of left hand DO Brad Harper Start: 10-26-2022 Plain X-ray of left hand DO Brad Harper Start: 09-23-2022 X-ray of right ankle DO Brad [employer] Phone: Start: 09-23-2022 Magnetic resonance angiography of head without contrast DO Brad Harper Work Phone: Start: 09-22-2022 CT of head without contrast DO Brad Harper Work Phone: Start: 09-22-2022 Plain chest X-ray DO Edgardo Harper Work Phone: Start: 09-22-2022 Urine culture DO Brad Harper Work Phone: Start: 09-20-2022 Doppler ultrasonogra phy of bilateral carotid arteries DO Brad Harper Start: 09-19-2022 Plain X-ray of left hand DO Brad Harper [employer] Phone: Start: 09-19-2022 CT cervical spine wi thout contrast DO Brad Harper Work Phone: Start: 09-19-2022 CT of facial bones w ithout contrast DO Brad Harper [employer] Phone: Start: 09-19-2022 CT of head without contrast DO Brad Harper [employer] Phone: Start: 09-19-2022 Plain X-ray of left hand DO Brad Harper [employer] Phone: Start: 09-19-2022 Plain X-ray of right hip DO Brad Harper [employer] Phone: Start: 09-19-2022 Plain X-ray of right shoulder DO Brad Harper Work Phone: Start: 09-19-2022 X-ray of left ankle DO Brad Fonsecaton Work Phone: Start: 09-19-2022 X-ray of left knee DO Dash Harper [employer] Phone: Start: 09-05-2022 End: 09-05-2022 Glucose blood reagent strip Brook Atassi DO Work Phone: Start: 09-04-2022 Glucose blood reagent strip Brook Mesai DO Work Phone: Start: 09-04-2022 Glucose blood reagent strip Brook Mesai DO Work Phone: Start: 09-04-2022 Glucose blood reagent strip Brook Mesai DO Work Phone: Start: 09-04-2022 COVID/INFLUENZA Jaziel dixon DO Work Phone: Start: 09-04-2022 Glucose blood reagent strip Nurys Read MD Work Phone: Start: 09-03-2022 End: 09-03-2022 Natriuretic peptide Tucker Bucio MD Work Phone: Start: 09-03-2022 Ct abdomen & pelvis w/contrast material Lana vAila MD Work Phone: Start: 09-03-2022 Ct angiography chest w/contrast/noncontrast Betina. Franky DO Work Phone: Start: 09-03-2022 Ct thoracic [...] End: 09-03-2022 Drug screen quantitative alcohols Lana Jamaal Bayron Avila MD Work Phone: Start: 09-03-2022 End: 09-03-2022 Hemoglobin glycosylated a1c Jazielbossman Jamamonroe wadsworth DO Work Phone: Start: 01-13-2022 Antibody screen JAZMINE TREVINO Comment on above: Performed By: #### [id number] #### [facility] [address] Plan of Treatment Date Care Activity Detail Author Start: 09-05-2023 End: 09-05-2023 Basic metabolic 2000 panel - Serum or Plasma [employer] Work Phone: Comment on above: 1 Occurrences starti ng 09/05/2022 until 09/05/2023 Start: 09-03-2023 Basic metabolic 2000 panel - Serum or Plasma Basic Metabolic Panel [facility] Start: 09-03-2023 Lipid panel [facility] Start: 03-04-2023 Hemoglobin A1c measurement Hemoglobin A1C [facility] Start: 09-23-2022 [facility] Start: 09-22-2022 Referral to neurologist [facility] Start: 09-20-2022 Doppler ultrasonogra phy of bilateral carotid arteries US carotid doppler BI [facility] Start: 09-20-2022 US.doppler Carotid arteries - bilateral [facility] Start: 09-20-2022 Hospital admission [facility] Start: 09-19-2022 Plain X-ray of left hand XR hand LT min 3V* [facility] Start: 09-19-2022 XR Hand - left GE 3 Views [facility] Start: 09-19-2022 CT cervical spine wi thout contrast CT cervical spine wo [facility] Start: 09-19-2022 CT Cervical spine WO contrast [facility] Start: 09-19-2022 CT Facial bones WO contrast [facility] Start: 09-19-2022 CT of facial bones without contrast CT facial bones wo [facility] Start: 09-19-2022 CT of head without contrast CT head/brain wo [facility] Start: 09-19-2022 CT Unspecified body region WO contrast [facility] Start: 09-19-2022 Plain X-ray of left hand XR hand LT min 3V* [facility] Start: 09-19-2022 Plain X-ray of right hip XR hi p RT min 2V(w/wo pelvis)* [facility] Start: 09-19-2022 Plain X-ray of right shoulder XR shoulder RT min 2V* [facility] Start: 09-19-2022 X-ray of left ankle XR ankle LT min 3V* [facility] Start: 09-19-2022 X-ray of left knee XR knee LT 2V [facility] Start: 09-19-2022 XR Ankle - left GE 3 Views [facility] Start: 09-19-2022 XR Hand - left GE 3 Views [facility] Start: 09-19-2022 XR Hip - right 2 Views [facility] Start: 09-19-2022 XR Knee - left 2 Views [facility] Start: 09-19-2022 XR Shoulder - right Views [facility] Start: 09-19-2022 Bacteria identified in Urine by Culture Urine Culture [facility] Start: 09-19-2022 Reposition Left Metacarpal, External Approach Reposition Left Metacarpal, External Approach [facility] Start: 06-20-2022 Influenza vaccination Influenza Vacc [...] (65+ yrs) (1 - PCV) [facility] Start: 05-02-1937 COVID-19 Vaccine (#1) COVID-19 Vacci ne (#1) [facility] Start: 1935 Diabetic retinal eye exam Eye Exam [facility] Start: 1935 Urine screening for protein Microalbumin [facility] Start: 1935 Diabetic foot examination Foot Exam [facility] Start: 1935 Ejection Fraction Ejection Fraction [facility] Patient referral [facility] Work Phone: Urnls dip stick/tabl et rgnt auto w/o microscopy URINALYSIS W/REFLEX CULTURE Lab STAT When Specimen Available/Needed for 1 Occurrences starting 09/04/2022 [facility] Work Phone: Comment on above: When Specimen Availa ble/Needed for 1 Occurrences starting 09/04/2022 [facility] Immunizations Immunization Date Immunization Notes Care Provider Fa cility 09-03-2022 Hemoglobin A1C Oswaldo Cal DDS Work Phone: [facility] 07-12-2021 COVID-19 Vaccine Pfi zer - Documentation Purposes Only Yoko Helms Other [facility] 05-28-2021 influenza virus vaccine, split virus (incl. purified surface antigen) Yoko Helms Other [employer] [facility] Other 05-28-2021 influenza virus vaccine, unspecified formulation [facility] 11-21-2020 COVID-19 Vaccine Moderna - Documentation Purposes Only Yoko Helms Other [facility] 05-31-2018 influenza virus vaccine, split virus (incl. purified surface antigen) Yoko Helms Other [employer] [facility] [employer] Other 05-31-2018 influenza virus vaccine, unspecified formulation [facility] Payers Date Payer Category Payer Self-pay 2001 Medicare [id number] 1959 Medicare [id number] 2.1 [id number] 1959 Unknown [id number] 2.1 [id number] 1936 Unknown [id number] 2.16.8 40.1.756573.3.579.2.647 1936 Unknown [id number] 2.16.8 40.1.376600.3.579.2.647 1936 Unknown [id number] 2.16.8 40.1.252039.3.579.2.647 1936 Unknown [id number] 2.16.8 40.1.891225.3.579.2.647 1936 Unknown [id number] 2.16.8 40.1.784596.3.579.2.647 1936 Unknown [id number] 2.16.8 40.1.435739.3.579.2.647 1936 Unknown [id number] 2.16. 840.1.285274.3.579.2.732 1936 Unknown [id number] 2.16. 840.1.911105.3.579.2.732 1936 Unknown [id number] 2.16. 840.1.415505.3.579.2.732 1936 Unknown [id number] 2.16. 840.1.226661.3.579.2.732 1936 Unknown [id number] 2.16. 840.1.035479.3.579.2.732 1936 Unknown [id number] 2.16. 840.1.334589.3.579.2.732 1936 Unknown [id number] 2.16.84 0.1.558706.3.579.2.593 1936 Unknown [id number] 2.16.84 0.1.703555.3.579.2.593 1936 Unknown [id number] 2.16.84 0.1.438080.3.579.2.593 1936 Unknown [id number] 2.16.84 0.1.771121.3.579.2.593 1936 Unknown [id number] 2.16.84 0.1.263997.3.579.2.593 1936 Unknown [id number] 2.16.84 0.1.016261.3.579.2.593 1936 Unknown [id number] 2.16.84 0.1.915117.3.579.2.593 1936 Unknown [id number] 2.16.84 0.1.306263.3.579.2.593 1936 Unknown [id number] 2.16.84 0.1.219755.3.579.2.593 1936 Unknown [id number] 2.16.84 0.1.923009.3.579.2.593 1936 Unknown [id number] 2.16.84 0.1.649016.3.579.2.593 1936 Unknown [id number] 2.16.84 0.1.763413.3.579.2.593 1936 Unknown [id number] 2.16.84 0.1.127568.3.579.2.593 1936 Unknown [id number] 2.16.84 0.1.261508.3.579.2.593 Unknown [id number] 2.16.8 40.1.108058.3.579.2.531 Unknown [id number] 2.16.8 40.1.943166.3.579.2.531 Unknown [id number] 2.16.8 40.1.680962.3.579.2.531 Social History Date Type Detail Facility Sex Assigned At [employer] Other Tobacco smoking status DCIS Tobacco smoking consumption unknown [facility] Start: 1935 Sex Assigned At [facility] file [facility] Start: 09-04-2022 End: 09-23-2022 Tobacco smoking status DCIS Never smoked tobacco [facility] Start: 09-04-2022 Alcohol intake Lifetime non-d deborah (finding) [facility] Start: 08-25-2022 End: 09-04-2022 Exposure to SARS-CoV-2 (event) Not sure [facility] Work Phone: Start: 1935 Sex Assigned At Female F [facility] Medical Equipment Procedure Code Equipment Code Equipment Origin al Text Equipment Identifier Dates [id number] Start: 07-16-2022 Goals Date Patient Goal Desired Activity /State Functional Status Date Assessment Result Facility 09-24-2022 Functional status Patient is Pro gressing Toward [facility] Work Phone: Mental Status Date Assessment Result Facility 09-24-2022 Cognitive function Cognitive Sta tus Patient at [facility] Work Phone: Clinical Notes 06-10-2021 to 03-03-2024 Note Date & Type Note Facility 03-03-2024 Note [facility] Subjective Eliz Hewitt is a 88 y.o. year old female patient being seen for 4 mo follow up chronic diastolic heart failure, aortic and mitral disoder, and pulmonary hypertension. Had echo last week. C/o worsening WILKES and intermittent chest pressure. 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 Stage 3b chronic kidney disease (CMS/HCC) Chronic combined systolic and diastolic heart failure, NYHA class 2 (CMS/HCC) Altered mental status, unspecified Anemia, unspecified Atherosclerotic heart disease of [place] coronary artery without angina pectoris Cognitive [...] 30-59 ml/min (CMS/HCC) Fall Foot drop, bilateral Benign essential HTN Corns and callosities Hammer toe Ingrowing nail Tinea unguium Family History Family history unknown: Yes Social History Tobacco Use Smoking status: Never Smokeless tobacco: Never Substance Use Topics Alcohol use: Never JULIO CESAR Eliz is seen in follow-up. She is an 86-year-old woman with prior history of bioprosthetic aortic valve replacement [21 mm C-E Magna pericardial valve] in 10/10/2008 due to severe aortic valve regurgitation with some degree of aortic valve stenosis. At that time her coronary angiogram showed no evidence of significant coronary disease. On 09/18/2021 while traveling in [place] she was admitted to the hospital with [...] on sildenafil 20 mg 3 times daily. At last visit of 11/01/2023 I increased Lasix to 40 mg once daily. Today she reports that she has been still taking furosemide 20 mg once daily. She still has dypsnea on exertion, NYHA class II. She is not exerting herself too much. She has bilateral lower extremity edema. No palpitations. Review of Systems HENT: Positive for hearing loss. Cardiovascular: Positive for chest pain (intermittent, pressure), dyspnea on exertion (worsening) and leg swelling (intermittent). Musculoskeletal: Positive for joint pain and muscle weakness. Neurological: Positive for brief paralysis, light-headedness, numbness and weakness. All other systems reviewed and are negative. Objective Visit Vitals BP 128/70 (BP Location: Right arm, Patient Position: Sitting) Pulse 61 Ht 1.6 m (5' 3 ) Wt 64.9 kg (143 lb) SpO2 (more content not included)... [facility] 11-01-2023 Note [facility] Subjective Eliz Hewitt is a [...] unspecified Anemia, unspecified Atherosclerotic heart disease of [place] coronary artery without angina pectoris Cognitive [...] Use Topics Alcohol use: Never JULIO CESAR Eliz is seen in follow-up. She is an 86-year-old woman with prior history of bioprosthetic aortic valve replacement [21 mm C-E Magna pericardial valve] in 10/10/2008 due to severe aortic valve regurgitation with some degree of aortic valve stenosis. At that time her coronary angiogram showed no evidence of significant coronary disease. On 09/18/2021 while traveling in [place] she was admitted to the hospital with [...] arm, Patient Posit (more content not included)... [facility] 09-06-2023 Evaluation note Encounter Date Diagnosis Assessment [...] Systolic murmur (ICD-10 - R01.1) as above [employer] Other 12-18-2023 Evaluation note* Encounter Date Diagnosis [...] Systolic murmur (ICD-10 - R01.1) as above [employer] Other 11-22-2023 NoteCoronary artery disease is stable [facility]11-22-2023 NotestableUnMer[facility]11-22-2023 Notes/p bioprosthetic aortic valve replacement in 2008 with a 21 mm C-E Magna pericardial valve -s/p valve in valve TAVR using a 20 mm Enoch Ultra S3 transcatheter heart valve on 01/13/22 Continue all medsUniversKettering [facility]11-22-2023 NoteUTP CARDIOLOGY PROGRESS NOTE HPI: Eliz Hewitt is a 87 y.o. female here for routine f/U HPI Presents today for routine f/U for known Pulm HTN, Combined Heart failure, CAD s/p DC, HTN, and HPL Aortic valve stenosis-s/p bioprosthetic [...] are no significant artifact (more content not included)...[facility]11-22-2023 NotePt recently was initiated on Sildenafil s/p recent RHC with vasoreactivity study Continue sildenafil- Norvasc was dc'd r/t hypotension and near syncope. Overall pt states she feels better, reports WILKES but states this is improved since RHC. [facility]11-22-2023 NoteNYHC III C, currently euvolemic and without exacerbation Continue GDMT-ASA, farxiga, toprol, Diuretic therapy- lasix Monitor daily weights, I&O, fluid restriction 1.5-2L/day, renal function and electrolytesUnMercy Health – [facility]11-22-2023 NoteCoronary artery disease is stable Continue GDMT-ASA, toprol continue risk factor modifications- heart healthy diet, regular exercise as tolerated and continue all medications.[facility] 08-11-2023 NoteHTn is well controlled 110/43 Continue all meds- norvasc was DCd after initiation of Sildenafil for Pulm HTN and noted hypotension and lightheadedness.[facility] 07-15-2023 NotePatient: Eliz Hewitt Procedure Information Date/Time: 07/15/23 0930 Procedure: Right heart cath - Severely elevated RVSP- Pulm HTN, HFrEF, may need vasoreactivity study Location: [facility] PROFESSOR OF INDUSTRIAL TECHNOLOGY 3 / [facility] (Cath) Providers: Tanisha Arellano MD Clinical information reviewed: Allergies Meds OB Status Physical Exam Airway Mallampati: II TM distance: >3 FB Neck ROM: full Cardiovascular Rhythm: regular Rate: normal Dental Pulmonary Abdominal Anesthesia Plan ASA 3 other Anesthetic plan and risks discussed with patient. Use of blood products discussed with patient who consented to blood products. Additional Equipment RequestsUnMercy Health [facility] Jewish Hospital09-22-[address] Arellano and nAa Del Angel - have patient increased lasix to 40mg bid x3 days and return to baseline dose of 40mg daily. Have BMP next week. Patient informed. Order faxed to [facility]09-18-2023 Note [facility] III- Assessment patient does not appear currently [...] and management forward May benefit from nephrology referralUnMercy Health [facility] 06-07-2023 NotestableUnMercy Health [facility]09-18-2023 NotePatient with noted worsening right-sided pressures [...] possible vasoreactivity study end of June Dr. Arellano.[facility]09-18-2023 Note prior history of bioprosthetic aortic valve replacement [21 mm C-E Magna pericardial valve] in 10/10/2008 Continue toprol and remains on lasix diuresisUnMercy Health – [facility] Jewish [facility] 06-07-2023 NotePatient here for follow up echo, labs and CXR. Review of Systems HENT: Positive for hearing loss. Cardiovascular: Positive for dyspnea on exertion and leg swelling. Musculoskeletal: Positive for joint pain. Neurological: Positive for numbness. All other systems reviewed and are negative.[facility] 06-07-2023 NoteUTP CARDIOLOGY PROGRESS NOTE HPI: [...] Airways: Widely patent. Lungs: (more content not included)...[facility] 06-07-2023 Evaluation note* Encounter Date Diagnosis Assessment Notes Treatment Notes Treatment Clinical Notes May, Left ear impacted cerumen (ICD-10 - H61.22) Cerumen removed w lighted tool and forceps- no water or irrigation. Large amount removed - pt tolerated well. Great improvement in hearing. [employer] Other 09-15-2023 NoteDr Adan reviewed echocardiogram and pt has severely elevated Rt sided pressures. Staff to call pt and inquire about how she is feeling today, notifiy her to come get labs done today or tomorrow for CBC, CMP, BNP and will plan for f/U in cardiology clinic Wednesday with myself and plan for RHC and possible admission to [facility] for aggressive IV diuresis. Praveena Del Angel SENIOR UI UX DEVELOPER Division of Cardiology, [facility]- [phone] Pager- [phone] Email- [email or web address]09-07-2023 Evaluation note* Encounter Date Diagnosis Assessment Notes Treatment Notes Treatment Clinical Notes May, Type 2 diabetes mellitus with diabetic chronic kidney disease (ICD-10 - E11.22) Decrease Basaglar to 25units. Reviewed home readings often less than 70. Pt notes symptoms of feeling jittery at times. May, Longstanding persistent atrial fibrillation (ICD-10 - I48.11) Pt does not have a followup w [facility] Cardio - would benefit from a checkup due to dyspnea and assessment of her increasingly prominent murmur May, Systolic murmur (ICD-10 - R01.1) as above. May, Impacted cerumen, bilateral (ICD-10 - H61.23) easily removed cerumen with device, not water pik from R ear. Unable to comfortably remove cerumen from L canal. Advised debrox and return if continues to have issue further treated. [employer] Other 05-08-2023 Evaluation note* Encounter Date Diagnosis Assessment Notes [...] - D63.1) Monitor lab - chronic problem [employer] Other 03-13-2023 Evaluation note* Encounter Date Diagnosis [...] to call with any questions or concerns [employer] Other 02-07-2023 Evaluation note* Encounter Date Diagnosis [...] does check glucose at home. will monitor. [facility] specialist was asking specificially about A1C. [employer] Other 02-06-2023 Evaluation note* Encounter Date Diagnosis [...] move forward with treatment at this time. [employer] Other 01-18-2023 Evaluation note* Encounter Date Diagnosis [...] since recent hospitalization reviewed glucose levels. 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 [employer] Other 01-04-2023 Discharge summary Author Donn Joseph [facility] September 23, 2022 4:20pm Note Date/Time September 23, 2022 4: 20pm [facility] [address] [place] [address] Discharge Summary Signed Patient: Eliz Hewitt MR#: [id number] : 1935 Acct:[id number] Age/Sex: 86 / F Adm Date: 2 Loc: Room: 6F9724-[address]: Donn Joseph DO Copies to: MD Donn Yoon, ~ Providers Date of Discharge: 09/23/22 Discharging Provider: [...] % (Auto) 77.3, Lymph % (Auto) 10.4, Coryell % (Auto) 9.8, Eos % (Auto) 1.6, Baso % (Auto) 0.9, Nucleat RBC Rel Count 0.1, Neut # (Auto) 6.6, Lymph # (Auto) 0.9 L, Coryell # (Auto) 0.8, Eos # (Auto) 0.1, Baso # (Auto) 0.1 09/22/22 16:20: Urine Color Dark yellow A, Urine Appearance Cloudy A, Urine pH 5.5, Ur Specific Sterling 1.025, Urine Protein 100 H, Urine Glucose [...] 15:10 Discharge Plan Discharge Plan Patient Disposition: [facility] Facility Diet: Diabetic Additional Instructions: SNF Physician [...] TABLET BY MOUTH EVERY DAY Follow Up: [facility] [Provider Group] - 09/28/22 2:30 pm (You have been scheduled for a follow up appointment with Dr. Pollard for the following date andtime, please call to reschedule if needed.) [facility] [Outside] - 10/20/22 1:30 pm (With Kathy GOODMAN and Dr. Marsh) Yoko Helms MD [Primary Care Provider] - (Please call to schedule a follow up appointment with PCP upon discharge from SNF.) Documented By: Donn Joseph DO 09/23/22 16 15 Signed By: <Electronically signed by Donn Joseph DO> 09/23/22 [address] [facility] Work Phone: 1(112) 212-241201-04-2023 Progress note Author Donn Joseph [facility] September 23, 2022 4:09pm Note Date/Time September 23, 2022 4: 09pm [facility] [address] [place] [address] Hospitalist Progress Note Signed Patient: Eliz Hewitt MR#: [id number] : 1935 Acct:[id number] Age/Sex: 86 / F Adm Date: 2 Loc: 4N Room: [address] [place] [address] Type: ADM IN Attending Dr: Donn Joseph [...] Responded well to IV fluids. Type II DC No chest pain/SOB or EKG changes DM [...] Allergies and Active Meds Allergies acetaminophen [From Colon] Allergy (Verified 09/20/22 02:12) Unknown Reaction codeine Allergy (Verified 09/20/22 02:12) Hives hydrocodone [From Colon] Allergy (Verified 09/20/22 02:12) Unknown Reaction hydroquinone [...] 09/20/22 09:00 09/23/22 08:51 Aspirin 81 Mg Tablet. PO 09/20/23 08:59 [...] Insuln.Pen SUBCUT 09/20/23 16:59 Not Given TID.WM.HS [facility] Protocol Insulin Glargine 35 units 09/20/22 09:00 09/23/22 08:52 Insulin Glargine 300 Units/3 Ml Insuln.Pen SUBCUT 09/20/23 08:59 35 units DAILY ZION Administration Melatonin 5 mg 09/23/22 00:15 09/23/22 01:16 Melatonin 5 Mg Tablet PO 09/23/23 00:14 5 mg QHS ZION Administration Metoprolol Succinate 25 mg 09/20/22 [...] <Electronically signed by Donn Joseph DO> 09/23/22 1600 [facility] Work Phone: 1(767) 489-638001-04-2023 Consult note Author Андрей Marsh [facility] September 23, 2022 3:12pm Note Date/Time September 23, 2022 9: 09am [facility] [address] [place] [address] Neurology Consult Note Signed Patient: Eliz Hewitt MR#: [id number] : 1935 Acct:[id number] Age/Sex: 86 / F Adm Date: 2 Loc: 4N Room: [address] [place] [address] Type: ADM IN Attending Dr: Donn Joseph DO Copies to: AMARJIT Dunbar MD Michael R. Frings, DO Steven Benedict, MD~ HPI Consult Date: 09/23/[address] Judge: MILES Quezada with Dr. Marsh Reason for [...] from her bed. She fell just before Ironside as well. At that time she tripped [...] (Updated 09/23/22 @ 09:24 by Jodi Swift, ANP-BC) Diabetes mellitus, type 2 Hypertension Surgical History History of heart valve replacement History of surgery on arm Social History Smoking Status: Never smoker Substance Use Type: None Meds Medications and Allergies Allergies acetaminophen [From Colon] Allergy (Verified 09/20/22 02:12) Unknown Reaction codeine Allergy (Verified 09/20/22 02:12) Hives hydrocodone [From Colon] Allergy (Verified 09/20/22 02:12) Unknown Reaction hydroquinone [...] bilaterally. Proprioception is absent. CEREBELLAR EXAM: * Wqnuig-fl-[id number] and alternating movements are intact and normal in bilateral upper extremities. Limited exam on the left due to splinting of the wrist and hand * Alternating movements are intact and normal in lower extremities REFLEX EXAM: * 14 throughout Results Laboratory Findings 09/22/22 16:30 09/22/22 16:30 Diagnostic Findings Imaging/Impressions: ITS Impressions Hip X-Ray 09/19/22 20:51 IMPRESSION: FOURTH METACARPAL FRACTURE OF THE LEFT HAND WITH IMPROVED ALIGNMENT ON POSTREDUCTION IMAGING. NO ACUTE FINDINGS ARE SEEN INVOLVING THE RIGHT HIP/PELVIS, RIGHT SHOULDER, CHEST, LEFT KNEE OR ANKLE.. Impression dictated by: Randy Vickers Jr., D.OArpit09/20/2022 9:30 AM Dictation Location: [place] [address] 09/19/22 21:53 IMPRESSION: NO ACUTE [...] Vickers Jr., D.O.09/20/2022 8:41 AM Dictation Location: [facility]-04 Chest X-Ray 09/22/22 15:35 IMPRESSION: DEVELOPING BIBASILAR PLEURAL AND/OR PARENCHYMAL CHANGE, GREATER ON THE LEFT Impression dictated by: Maddie Miner M.D.09/22/2022 3:55 PM Dictation Location: [facility]-[address] 09/22/22 17:06 IMPRESSION: No acute intracranial pathology. Impression dictated by: Abram Baltazar M.D.09/22/2022 5:45 PM Dictation Location: [facility]-13 Therapy Recommendations Therapy Recommendations: OT Recommendations OT Recommended Discharge [facility] Facility Location OT Recommended Services at Physical Therapy,Occupational Therapy Discharge PT Recommendations PT Recommended Discharge [facility] Facility Location PT Recommended Services at Physical [...] She did have a fall just before Ironside as well when she tripped over a [...] the plan of care and confirmed the SENIOR UI UX DEVELOPER note Patient is an 86-year-old female [...] <Electronically signed by AMARJIT Swift> 09/23/22 1039 [facility] Work Phone: 1([phone]) 785-930801-04-2023 Hospital Discharge instructions Additional Instructions SNF Physician [...] with theraworx protect, apply large mepilex border [facility] Work Phone: 1(704) 860-504901-03-2023 Progress note Author Donn Joseph [facility] September 22, 2022 7:14pm Note Date/Time September 22, 2022 7: 14pm [facility] [address] [place] [address] Hospitalist Progress Note Signed Patient: Eliz Hewitt MR#: [id number] : 1935 Acct:[id number] Age/Sex: 86 / F Adm Date: 2 Loc: Room: [address] [place] [address] Type: ADM IN Attending Dr: Donn Joseph [...] Responded well to IV fluids. Type II DC No chest pain/SOB or EKG changes DM [...] Allergies and Active Meds Allergies acetaminophen [From Colon] Allergy (Verified 09/20/22 02:12) Unknown Reaction codeine Allergy (Verified 09/20/22 02:12) Hives hydrocodone [From Colon] Allergy (Verified 09/20/22 02:12) Unknown Reaction hydroquinone [...] <Electronically signed by Donn Joseph DO> 09/22/221913 [facility] Work Phone: 1(660) 827-988701-02-2023 Progress note Author Donn Joseph [facility] September 21, 2022 4:05pm Note Date/Time September 21, 2022 4: 05pm [facility] [address] [place] [address] Hospitalist Progress Note Signed Patient: Eliz Hewitt MR#: [id number] : 1935 Acct:[id number] Age/Sex: 86 / F Adm Date: 2 Loc: Room: [address] [place] [address] Type: ADM IN Attending Dr: Donn Joseph [...] Responded well to IV fluids. Type II DC No chest pain/SOB or EKG changes DM [...] Allergies and Active Meds Allergies acetaminophen [From Colon] Allergy (Verified 09/20/22 02:12) Unknown Reaction codeine Allergy (Verified 09/20/22 02:12) Hives hydrocodone [From Colon] Allergy (Verified 09/20/22 02:12) Unknown Reaction hydroquinone [...] 09/20/22 09:00 09/21/22 08:42 Aspirin 81 Mg Tablet.Dr PO 09/20/23 08:59 [...] 08:42 Metoprolol Succinate 25 Mg Tab.Er.24h PO 01/01/24 08:59 25 mg DAILY ZION Administration Morphine [...] signed by Donn Joseph DO> 09/21/22 1605 [facility] Work Phone: 1([phone]) 946-819501-01-2023 Progress note Author Dusty Singh [facility] September 20, 2022 4:29pm Note Date/Time September 20, 2022 12 :28pm [facility] [address] [place] [address] Hospitalist Progress Note Signed Patient: Eliz Hewitt MR#: [id number] : 1935 Acct:[id number] Age/Sex: 86 / F Adm Date: 2 Loc: 4N Room: [address] [place] [address] Type: ADM IN Attending Dr: Dusty Singh [...] more day CK in am Type II DC No chest pain/SOB or EKG changes DM [...] Allergies and Active Meds Allergies acetaminophen [From Colon] Allergy (Verified 09/20/22 02:12) Unknown Reaction codeine Allergy (Verified 09/20/22 02:12) Hives hydrocodone [From Colon] Allergy (Verified 09/20/22 02:12) Unknown Reaction hydroquinone [...] 09/20/22 09:00 09/20/22 08:37 Aspirin 81 Mg Tablet.Dr PO 09/20/23 08:59 [...] signed by Dusty Singh MD> 09/20/22 1629 [facility] Work Phone: 1([phone] 201-509401-01-2023 History and physical note Author Donn Joseph [facility] September 20, 2022 4:57am Note Date/Time September 20, 2022 4: 57am [facility] [address] [place] [address] Hospitalist H&P Signed Patient: Eliz Hewitt MR#: [id number] : 1935 Acct:[id number] Age/Sex: 86 / F Adm Date: 2 Loc: Room: [address] [place] [address] Type: ADM IN Attending Dr: Donn Joseph [...] fall the patient was admitted to the [facility] for further evaluation and treatment. Physical Examination: [...] Meds Medications and Allergies Allergies acetaminophen [From Colon] Allergy (Verified 09/20/22 02:12) Unknown Reaction codeine Allergy (Verified 09/20/22 02:12) Hives hydrocodone [From Colon] Allergy (Verified 09/20/22 02:12) Unknown Reaction hydroquinone [...] % (Auto) 4.4 % (.) 09/19/22 21:08 Coryell % (Auto) 6.7 % (.) 09/19/22 21:08 Eos % (Auto) 0.1 % (.) 09/19/22 21:08 Baso % (Auto) 0.6 % (.) 09/19/22 21:08 Nucleat RBC Rel Count 0.0 /100 WBC (0-0.5) 09/19/22 21:08 Neut # (Auto) 9.3 x10E3/uL (1.8-7.7) H 09/19/22 21:08 Lymph # (Auto) 0.5 x10E3/uL (1.00-4.8) L 09/19/22 21:08 Coryell # (Auto) 0.7 x10E3/uL (0.0-0.8) 09/19/22 21:08 [...] pH 6.5 (5.0-9.0) 09/19/22 21:00 Ur Specific Sterling 1.026 (1.001-1.030) 09/19/22 21:00 Urine Protein 300 [...] signed by Donn Joseph DO> 09/20/22 0457 [facility] Work Phone: [phone] 164-639112-19-2022 Telephone encounter Note* Telephone Encounter - Tamera Calero - 09/07/2022 9:52 AM EST Patients johnnie Gaston calling in. He is following up from the ED Resident Consult. Patient was seen in ED/Admitted on 09/03/22. She was seen by Dental Resident Dr. Mccall. The resident recommended: patient has been advised to come to the [facility] for comprehensive evaluation and treatmentof teeth #5-#8. There are no appointments that [facility] can schedule into. Please reach out to Alek to assist with scheduling. [id number] Miscellaneous Notes* Telephone Encounter - Tamera Calero - 09/07/2022 9:52 AM EST Patients johnnie Gaston calling in. He is following up from the ED Resident Consult. Patient was seen in ED/Admitted on 09/03/22. She was seen by Dental Resident Dr. Mccall. The resident recommended: patient has been advised to come to the [facility] for comprehensive evaluation and treatmentof teeth #5-#8. There are no appointments that [facility] can schedule into. Please reach out to Alek to assist with scheduling. documented in this [id number] [address] Michael Hewitt Date of : 1935 86 year old female Attending Juan Starkey MD PCP Yoko eHlms MD Date of Admission 09/03/2022 Date of Discharge 09/05/2022 Discharge Diagnoses: Hospital Problems as of 09/05/2022 * (Principal) Syncope, unspecified syncope type Discharge Procedure Orders Basic Metabolic Panel Standing Status: Future Standing Exp. Date: 09/05/23 HOME CARE SERVICE REQUEST Referral Priority: Routine Referral Type: Service Level Authorization Referral Location: [facility] Number of Visits Requested: [...] osseous lesions. Multilevel (more content not included)...[facility] [id number] NoteED SW consulted by inpatient provider for home care referral as pt being discharged. Provider would like pt set up with home care prior to discharge. Provider referred to ED case manger to facilitate referral .[facility] [id number] History of Present illness Narrative* Praveena Alanis RN - 09/05/2022 10:28 AM EST UTILIZATION REVIEW AND STAFF BED STATUS CHANGE [facility] Utilization Review team and medical staff reviewed the clinical care for this patient using [facility] guidelines to determine appropriate bed status. The [...] information refer to the IP [employer]. * Anthony Jaziel, - 09/04/2022 3:36 AM EST Images from the original note were not included. Internal Medicine Shelter Plan Note Michael Hewitt [id number] ACUTE02/23 Today's date: 09/04/2022 Admission date: 09/03/2022 [...] at this time. Rest of plan per sports team marketing intern note. Jaziel Madsen DO PGY-3 [phone] * Betina Wilkins.DO - 09/04/2022 12:02 AM EST Incidental Findings [...] hypertension. Franky Moffett DO documented in this [id number] History of Present illness Narrative* Jessica Narayan LSW - 09/05/2022 8:31 AM EST ED SW consulted by inpatient provider for home care referral as pt being discharged. Provider wouldlike pt set up with home care prior to discharge. Provider referred to ED case manger to facilitate referral . documented in this [id number] NoteOCCUPATIONAL THERAPY INITIAL EVALUATION Patient seen from 1354 to 1410 on [facility] ED unit for 16 minutes. Reason for [...] Dep Max Mod Min CG CS DS DC I Set-Up Comment Feeding x Grooming/Hygiene x Anticipate Bathing:UB x Simulated sponge bathing Bathing:LB x Anticipate Dressing:UB x Simulated with functional reach Dressing: LB x Anticipate. Attempt figure 4 positioning seated on gurney however gurney not completely flat and throwing off pt's balance. Toileting x Anticipate for clothing management Transfers/Bed Mobility: Assistance Level Dep Max Mod Min CG CS DS DC I Set-Up Comment Toilet Transfers x Anticipate based on chair transfer Bed Transfers x x Sit to stand from EOB. Stand pivot from bed to chair with b/l RETAIL EVENT ASSISTANT (CG x 2), slightly unsteady but no [...] With Patients permission ordered no equipment via [employer] Order. If any questions contact [employer] DME Provider at [phone]. 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 If any questions contact [facility] DME Provider at [phone]. 3 Clicks Basic Mobility PT 09/04/2022 Difficulty turning [...] is functionally appropriate for discharge home with / supervision once medically cleared. Will continue to follow patient while in hospital as appropriate. Recommend Home Physical Therapy. Recommend use of RW at discharge for all functional mobility. Problems: Decreased functional mobility Decreased endurance Decreased balance Rehabilitation Potential: Good Goals (to be achieved by discharge from acute care): Patien (more content not included)...[facility] [employer] [id number] Consult note* Doretha Polk OT - 09/04/2022 [...] complication, with long-term current use of insulin ([facility]) PSH: Past Surgical History: Procedure Laterality Date [...] Dep Max Mod Min CG CS DS DC I Set-Up Comment Feeding x Grooming/Hygiene x Anticipate Bathing:UB x Simulated sponge bathing Bathing:LB x Anticipate Dressing:UB x Simulated with functional reach Dressing: LB x Anticipate. Attempt figure 4 positioning seated on gurney however gurney not completely flat and throwing off pt's balance. Toileting x Anticipate for clothing management Transfers/Bed Mobility: Assistance Level Dep Max Mod Min CG CS DS DC I Set-Up Comment Toilet Transfers x Anticipate based on chair transfer Bed Transfers x x Sit to stand from EOB. Stand pivot from bed to chair with b/l RETAIL EVENT ASSISTANT (CG x 2), slightly unsteady but no [...] With Patients permission ordered no equipment via [employer] Order. If any questions contact [facility] DME Provider at [phone]. 6 Clicks Daily Activity OT 09/04/22 Help [...] Guard Assist/Supervision 4 - Non = Modified [place]/Independent ASSESSMENT: Anticipate patient will be appropriate for discharge home with 24/ family supervision for safe completion of [...] NA = Not Assessed, I = Independent, DC = Modified Independent, Sup = Supervised, Set up = Physical Assistance for Set-up Only, Min = Minimal Assistance, Mod = Moderate Assistance, Max = Max assistance; Dep = Dependent; AROM = Active Range of Motion;PROM=Passive Rangeof Motion; MMT = Manual Muscle Test; UB = Upper Body; LB = Lower Body [id number] Consult note* Doretha Polk OT - 09/04/2022 [...] Dep Max Mod Min CG CS DS DC I Set-Up Comment Feeding x Grooming/Hygiene x Anticipate Bathing:UB x Simulated sponge bathing Bathing:LB x Anticipate Dressing:UB x Simulated with functional reach Dressing: LB x Anticipate. Attempt figure 4 positioning seated on gurney however gurney not completely flat and throwing off pt's balance. Toileting x Anticipate for clothing management Transfers/Bed Mobility: Assistance Level Dep Max Mod Min CG CS DS DC I Set-Up Comment Toilet Transfers x Anticipate based on chair transfer Bed Transfers x x Sit to stand from EOB. Stand pivot from bed to chair with b/l RETAIL EVENT ASSISTANT (CG x 2), slightly unsteady but no [...] With Patients permission ordered no equipment via [employer] Order. If any questions contact [facility] DME Provider at [phone]. 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 Johnnei Gaston present, RN notified of pt position. DME: With Patients permission ordered no equipment via [employer] Order. If any questions contact [facility] DME Provider at [phone]. 8 Clicks Basic Mobility PT 09/04/2022 Difficulty turning [...] is functionally appropriate for discharge home with 12/04 supervision once medically cleared. Will continue to [...] understanding and agreement with the plan. Varsha Marroquin, PT, DPT NA = Not Assessed, I = Independent, DC = Modified Independent, Sup = Supervised, Set [...] to get a comprehensive examination done at [facility] office. Panoramic and full mouth series of radiographs needed for definitive diagnosis. Follow-up [facility] Dentistry office after patient gets discharged from ED Patito Sorenson DDS * Elier Camarillo MD - 09/03/2022 9:20 PM EST PLASTIC SURGERY FACIAL TRAUMA CONSULT Name: Michael Hewitt : 1935 HPI This 86 year old female date of injury was 09/03/2022. The patient was transported to [facility] by EMS. Initial evaluation at [facility]. Patient fell from standing at the [...] attending Plastic Surgery Staff On-Call: Riana Hewitt [phone] Elier Camarillo MD Plastic Surgery PGY-6 Service pager [phone] documented in this [id number] Consult note* Varsha Marroquin, PT - 09/04/2022 [...] complication, with long-term current use of insulin ([facility]) PSH: Past Surgical History: Procedure Laterality Date APPENDECTOMY CHOLECYSTECTOMY ORIF DISTAL FEMUR FRACTURE Identification was verified by patient verbalizing his/her name and date of . 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 If any [facility] at [phone]. 6 Clicks Basic Mobility PT 09/04/2022 Difficulty [...] is functionally appropriate for discharge home with 24/ supervision once medically cleared. Will continue to [...] NA = Not Assessed, I = Independent, DC = Modified Independent, Sup = Supervised, Set up = Physical Assistance for Set-up Only, Min = Minimal Assistance, Mod = Moderate Assistance, Max = Max assistance; Dep = Dependent; AROM = Active Range of Motion; PROM = Passive Range of Motion; MMT = Manual Muscle Test; LE = Lower Extremity [id number] History and physical note* Norm Olea MD - 09/04/2022 2:58 AM EST Images from the original note were not included. INTERNAL MEDICINE HISTORY AND PHYSICAL Patient: Michael Hewitt : 1935 Sex: female Room: [place] [address] Admit Date: 09/03/2022 Today's Date: 09/04/2022 Length [...] complication, with long-term current use of insulin ([facility]) Past Surgical History: Procedure Laterality Date APPENDECTOMY [...] Olea MD Internal Medicine - PGY-1 Pager: [phone] Associated attestation - Juan Starkey MD - 09/04/2022 2:36 PM EST Teaching Physician Note: I saw and evaluated the patient. I personally obtained the haskins and critical portions of the historyand physical exam. I reviewed the resident's documentation and discussed the patient with the resident. I agree with the resident's medical decision making as documented in the resident's note. Juan Starkey MD [id number] History and physical note* Norm Olea MD - 09/04/2022 2:58 AM EST Images from the original note were not included. INTERNAL MEDICINE HISTORY AND PHYSICAL Patient: Michael Hewitt : 1935 Sex: female Room: ACUTE02/23 Admit Date: 09/03/2022 Today's Date: 09/04/2022 Length [...] Olea MD Internal Medicine - PGY-1 Pager: [phone] Associated attestation - Juan Starkey MD - [...] Wilkins., DO - 09/03/2022 8:53 PM EST [facility] DIVISION OF ACUTE CARE SURGERY TRAUMA SURGERY HISTORY AND PHYSICAL Michael Hewitt [id number] 09/03/22 BASIC INJURY INFORMATION: Level of activation: Category 2 Trauma Mode of transport: Ambulance: EMS Mechanism of injury: Fall from ground level Complicating features: Not applicable Protective measures: Not applicable Date of Injury: 09/03/2022 Time of Injury: Today Patient origin: Transfer from outside facility HISTORY OF PRESENT INJURY: Michael Hewitt is a 86 year old female brought in by EMS from [facility] following a fall with traumatic injuries. [...] status: Single Living status: Home Primary language: Palestinian Functional status: Independent Impairments: None Assistive Devices [...] female who presented to the ED from [facility] for trauma evaluation after she was found [...] evaluation. Dentistry also recommends outpatient exam at [facility]. CTA chest without PE or traumatic injuries. [...] and Emergency General Surgery Department of Surgery [facility] documented in this [id number] Hospital Discharge instructions* Discharge Instructions* Onelia Anthony MD - 09/04/2022 1:53 AM EST Please make sure to follow up with the therapy services that we are ordering for you. You will needHome PT/OT. Per the [facility] PT/OT you will need 24/ family supervision [...] recommended. Please make sure to go to [facility] for comprehensive evaluation and treatment of teeth #5-#8. [phone]. [address] [place] [address]. We will discontinue your Lasix and Potassium supplementation as your kidney function is not improved. We have ordered a BMP for you to go have drawn at any [facility] facility within the next week. If you feel like your breathing is worse or legs are more swollen, please call your primary care provider in regards to Lasix. documented in this [id number] Physician Emergency department Note* Tucker Bucio MD [...] accepted the patient to the floor. Tucker Bcuio MD [employer] Work Phone: 1(844) 818-765212-15-2022 Emergency department Note* Tucker Bucio MD - [...] copy of results given to . * Deolres Gaines RN - 09/03/2022 8:54 PM EST [...] IMPRESSION: No acute cardiopulmonary abnormality identified. [MM] 2138 Dental consulted due to concerns for missing teeth secondary to trauma. [MM] 2210 Complete Blood Count W/Diff(!): WBC 12.0(!) RBC [...] prior, so likely a chronic anemia [MM] 2211 BASIC METABOLIC PANEL(aka BMP) [CH8](!): Glucose 145(!) [...] to get a comprehensive examination done at [facility]. Panoramic and full mouth series [...] hypoxia. Nurys Read MD documented in this [id number] Emergency department Note* Joby Whitehead - 09/03/2022 9:[address]LIP READ notified of critical Troponin value of 79. Hard copy of results given to . [id number] Consult note* Patito Sorenson DDS - 09/03/2022 [...] to get a comprehensive examination done at [facility]. Panoramic and full mouth series of radiographs needed for definitive diagnosis. Follow-up [facility] Dentistry office after patient gets discharged from ED Patito Sorenson DDS [facility] Work Phone: 1(254) 305-325812-15-2022 History of Present illness Narrative* Pita Davidson LISW-S - 09/03/2022 9:25 PM EST Pt a 86 yo F, CAT 2 trauma, presenting via [facility] from [facility] s/p fall forward vs her face with aveolar ridge fx and traumatic teeth extraction. Pt was at the grocery store and was dizzy at the time of the fall. Presenting to the ED is son Alek Hewitt ([phone]). SW providing emotional support and reuniting son with pt bedside. MARY ALICE Barrett, MSSShea documented in this [id number] Consult note* Elier Camarillo MD - 09/03/2022 9:20 PM EST PLASTIC SURGERY FACIAL TRAUMA CONSULT Name: Michael Hewitt : 1935 HPI This 86 year old female date of injury was 09/03/2022. The patient was transported to [facility] by EMS. Initial evaluation at [facility]. Patient fell from standing at the [...] the attending Plastic Surgery Staff On-Call: Riana Michael Hewitt [phone] Elier Camarillo MD Plastic Surgery PGY-6 Service pager [phone] [id number] Emergency department Triage note* Delores Gaines RN - 09/03/2022 8:54 PM EST Prehospital Medications: 0.5mg dilaudid 4mg zofran [id number] History and physical note* Betina Wilkins., - 09/03/2022 8:53 PM EST [facility] DIVISION OF ACUTE CARE SURGERY TRAUMA SURGERY HISTORY AND PHYSICAL Michael Hewitt [id number] 09/03/22 BASIC INJURY INFORMATION: Level of activation: Category 2 Trauma Mode of transport: Ambulance: EMS Mechanism of injury: Fall from ground level Complicating features: Not applicable Protective measures: Not applicable Date of Injury: 09/03/2022 Time of Injury: Today Patient origin: Transfer from outside facility HISTORY OF PRESENT INJURY: Michael Hewitt is a 86 year old female brought in by EMS from [facility] following a fall with traumatic injuries. [...] status: Single Living status: Home Primary language: Palestinian Functional status: Independent Impairments: None Assistive Devices [...] female who presented to the ED from [facility] for trauma evaluation after she was found [...] evaluation. Dentistry also recommends outpatient exam at [facility]. CTA chest without PE or traumatic injuries. [...] and Emergency General Surgery Department of Surgery [place]12-15-2022 Emergency department Triage note* Delores Gaines RN - 09/03/2022 8:52 PM EST 86F, felt dizzy while at grocery store, fell from standing onto face [id number] Physician Emergency department Note* Nurys Read MD [...] for missing teeth secondary to trauma. [MM] 2209 Complete Blood Count W/Diff(!): WBC 12.0(!) RBC [...] prior, so likely a chronic anemia [MM] 2210 BASIC METABOLIC PANEL(aka BMP) [CH8](!): Glucose 145(!) [...] for fall earlier in the day [MM] 8 Patient complaining of pain in face, given fentanyl 25 mcg [MM] 222 Dental recommendations: : It is recommended for patient to get a comprehensive examination done at [facility]. Panoramic and full mouth series of radiographs needed for definitive diagnosis. [MM] 2224 XR RT FEMUR MIN 2 VIEWS IMPRESSION: No acute right femur fracture. [MM] 2224 X-ray Left Femur Min 2 Views IMPRESSION: [...] and workup of hypoxia. Nurys Read MD [facility] [employer] Work Phone: [phone] NotePROCEDURE: XR HUMERUS LT MIN 2V HISTORY: [...] Electronically authenticated by: АНДРЕЙ CHAPARRO Date: 2022-05-20 13:49[facility]08-27-2022 NoteMR#: [id number] [facility] Pt. Name: Eliz Hewitt Admitted: 05/15/2022 Discharged: [...] Alonzo MD Date Trans: 05/16/2022 11:03 A/rabia [id number] cc: Yoko Helms M.D. [address] [place] [id number] [place], [place] 5973908-03-2022 Note PROCEDURE: XR SHOULDER LT 2V or [...] Electronically authenticated by: АНДРЕЙ CHAPARRO Date: 2022-04-22 08:07[facility]08-02-2022 Evaluation note* Encounter Date Diagnosis Assessment Notes [...] follow up with Dr. Pollard in office. Neck Band Maker is Dr. Arellano with [place] May call Alek (son) to discuss options [phone] [employer] Other 04-28-2022 NoteMR#: [id number] [facility] Pt. Name: Eliz Hewitt Admitted: 01/13/2022 Discharged: [...] prescribed. 2. Follow up with Dr. Arellano, [facility] and Dr. Gregory, CT surgery in [...] personal documentation from me. Date Dict: 01/14/2022/10:58 Shea/Víctor Dotson MD Date Trans: 01/15/2022 05:59 A/rabia [id number] Evaluation [facility]* Encounter Date Diagnosis Assessment Notes Treatment Notes Treatment Clinical Notes Jul, Other closed nondisplaced fracture of proximal end of left humerus with routine healing, subsequent encounter (ICD-10 - S42.295D) Patient is progressing well from this injury. We discussed the importance of continuing to work on range of motion and strength exercise. Call with questions or concerns [employer] Other 09-21-2021 Evaluation note* Encounter Date Diagnosis Assessment Notes Treatment Notes Treatment Clinical Notes May, Other closed nondisplaced fracture of proximal end of left humerus with routine healing, subsequent encounter (ICD-10 - S42.295D) Radiographs reviewed with patient and company. Advised she is progressing well. Continue motion and strengthening exercises. Activity as tolerated. Call with questions/concerns. [employer] Other Consult note Author Андрей Marsh [facility] September 23, 2022 3:12pm Note Date/Time September 23, 2022 9: 09am [facility] [address] [place] [address] Neurology Consult Note Signed Patient: Eliz Hewitt MR#: [id number] : 1935 Acct:[id number] Age/Sex: 86 / F Adm Date: 2 Loc: Room: [address] [place] [address] Type: ADM IN Attending Dr: Donn Joseph DO Copies to: AMARJIT Dunbar MD Michael R. Frings, DO Steven Benedict, MD~ HPI Consult Date: 09/23/[address] Judge: MILES Quezada with Dr. Marsh Reason for [...] from her bed. She fell just before Ironside as well. At that time she tripped [...] Meds Medications and Allergies Allergies acetaminophen [From Colon] Allergy (Verified 09/20/22 02:12) Unknown Reaction codeine Allergy (Verified 09/20/22 02:12) Hives hydrocodone [From Colon] Allergy (Verified 09/20/22 02:12) Unknown Reaction hydroquinone [...] bilaterally. Proprioception is absent. CEREBELLAR EXAM: * [id number] and alternating movements are intact and normal [...] Bello Nowak Jr..O.09/20/2022 9:30 AM Dictation Location: [facility] [address]--[address] 09/19/22 21:53 IMPRESSION: NO ACUTE [...] Bello Nowak Jr..Michelle.09/20/2022 8:41 AM Dictation Location: [facility] [address]--04 Chest X-Ray 09/22/22 15:35 IMPRESSION: DEVELOPING BIBASILAR PLEURAL AND/OR PARENCHYMAL CHANGE, GREATER ON THE LEFT Impression dictated by: Maddie Miner M.D.09/22/2022 3:55 PM Dictation Location: [facility]--[address] 09/22/22 17:06 IMPRESSION: No acute intracranial pathology. Impression dictated by: Abram Baltazar M.D.09/22/2022 5:45 PM Dictation Location: [facility]-13 Therapy Recommendations Therapy Recommendations: OT Recommendations OT Recommended Discharge [facility] Facility Location OT Recommended Services at Physical Therapy,Occupational Therapy Discharge PT Recommendations PT Recommended Discharge [facility] Facility Location PT Recommended Services at Physical [...] She did have a fall just before Ironside as well when she tripped over a [...] the plan of care and confirmed the SENIOR UI UX DEVELOPER note Patient is an 86-year-old female [...] <Electronically signed by AMARJIT Swift> 09/23/22 1039 [facility] Work Phone: Discharge summary Author Donn Joseph [facility] September 23, 2022 4:20pm Note Date/Time September 23, 2022 4: 20pm [facility] [address] [place] [address] Discharge Summary Signed Patient: Eliz Hewitt MR#: [id number] : 1935 Acct:[id number] Age/Sex: 86 / F Adm Date: 2 Loc: Room: 1O1177-[address]: Donn Joesph DO Copies to: MD Donn Yoon, ~ Providers Date of Discharge: 09/23/22 Discharging Provider: [...] % (Auto) 77.3, Lymph % (Auto) 10.4, Coryell % (Auto) 9.8, Eos % (Auto) 1.6, Baso % (Auto) 0.9, Nucleat RBC Rel Count 0.1, Neut # (Auto) 6.6, Lymph # (Auto) 0.9 L, Coryell # (Auto) 0.8, Eos # (Auto) 0.1, Baso # (Auto) 0.1 09/22/22 16:20: Urine Color Dark yellow A, Urine Appearance Cloudy A, Urine pH 5.5, Ur Specific Sterling 1.025, Urine Protein 100 H, Urine Glucose [...] 15:10 Discharge Plan Discharge Plan Patient Disposition: [facility] Facility Diet: Diabetic Additional Instructions: SNF Physician [...] TABLET BY MOUTH EVERY DAY Follow Up: [facility] [Provider Group] - 09/28/22 2:30 pm (You have been scheduled for a follow up appointment with Dr. Pollard for the following date andtime, please call to reschedule if needed.) [facility] [place] [Outside] - 10/20/22 1:30 pm (With Kathy GOODMAN and Dr. Marsh) Yoko Helms MD [Primary Care Provider] - (Please call to schedule a follow up appointment with PCP upon discharge from SNF.) Documented By: Donn Joseph DO 09/23/22 16 15 Signed By: <Electronically signed by Donn Joseph DO> 09/23/22 5360 [facility] Work Phone: Evalubezrk noteNo Compliance [employer] Other Evaluation note* Diagnosis Syncope, unspecified syncope type- Primary Fall Unspecified fall Hypoxia Hypoxemia Acute pulmonary edema (HCC) Acute edema of lung, unspecified Bradycardia, unspecified Other hypertrophic cardiomyopathy (HCC) Other hypertrophic cardiomyopathy documented in this [facility] Diagnosis Onset Date Resolution Status Fall acute Fracture of fourth metacarpal bone acute [facility] Work Phone: Evaluation note* Diagnosis Onset Date Resolution Status Fall acute Foot drop, bilateral acute Fracture of fourth metacarpal bone [facility] Work Phone: Evaluation note* Diagnosis Onset Date Resolution Status Benign essential HTN acute Chronic kidney disease, stage 3b acute Diabetes mellitus, type 2 ac [place] [facility] Work Phone: History and physical note Author Donn Joseph [facility] September 20, 2022 4:57am Note Date/Time September 20, 2022 4: 57am [facility] [address] [place] [address] Hospitalist H&P Signed Patient: Eliz Hewitt MR#: [id number] : 1935 Acct:[id number] Age/Sex: 86 / F Adm Date: 2 Loc: 4N Room: [address] [place] [address] Type: ADM IN Attending Dr: Donn Joseph [...] fall the patient was admitted to the [facility] for further evaluation and treatment. Physical Examination: [...] Meds Medications and Allergies Allergies acetaminophen [From Colon] Allergy (Verified 09/20/22 02:12) Unknown Reaction codeine Allergy (Verified 09/20/22 02:12) Hives hydrocodone [From Colon] Allergy (Verified 09/20/22 02:12) Unknown Reaction hydroquinone [...] % (Auto) 4.4 % (.) 09/19/22 21:08 Coryell % (Auto) 6.7 % (.) 09/19/22 21:08 Eos % (Auto) 0.1 % (.) 09/19/22 21:08 Baso % (Auto) 0.6 % (.) 09/19/22 21:08 Nucleat RBC Rel Count 0.0 /100 WBC (0-0.5) 09/19/22 21:08 Neut # (Auto) 9.3 x10E3/uL (1.8-7.7) H 09/19/22 21:08 Lymph # (Auto) 0.5 x10E3/uL (1.00-4.8) L 09/19/22 21:08 Coryell # (Auto) 0.7 x10E3/uL (0.0-0.8) 09/19/22 21:08 [...] pH 6.5 (5.0-9.0) 09/19/22 21:00 Ur Specific Sterling 1.026 (1.001-1.030) 09/19/22 21:00 Urine Protein 300 [...] 50 Signed By: <Electronically signed by Donn Joseph, DO> 09/20/22 0458 [facility] Work Phone: Hisevzd general Narrative - Reported* Type Description Date Surgical History appendix Surgical History gall bladder Surgical History hysterectomy Surgical History carpal tunnel release Surgical History torsel tunnel Surgical History heart [employer] Other Hisykrm general Narrative - Reported* Type Description Date Medical History high cholesterol Medical History heart disease Medical History high blood pressure Medical History diabetes mallitus Surgical History appendix Surgical History gall bladder Surgical History hysterectomy Surgical History carpal tunnel release Surgical History torsel tunnel Surgical History heart [employer] Other Hisamfu general Narrative - Reported* Type Description Date Medical History high cholesterol Medical History heart disease Medical History high blood pressure Medical History diabetes mallitus Surgical History appendix Surgical History gall bladder Surgical History hysterectomy Surgical History carpal tunnel release Surgical History torsel tunnel Surgical History heart Hospitalization History SEE SURGICAL HX [employer] Other Hishofq general Narrative - Reported* Type Description Date Medical History high cholesterol Medical History heart disease Medical History high blood pressure Medical History diabetes mallitus Surgical History appendix Surgical History gall bladder Surgical History hysterectomy Surgical History carpal tunnel release Surgical History torsel tunnel Surgical History heart Surgical History Heart cath Hospitalization History SEE SURGICAL HX [employer] Other Progress note Author Dusty Singh [facility] September 20, 2022 4:29pm Note Date/Time September 20, 2022 12 :28pm [facility] [address] [place] [address] Hospitalist Progress Note Signed Patient: Eliz Hewitt MR#: [id number] : 1935 Acct:[id number] Age/Sex: 86 / F Adm Date: 2 Loc: 4N Room: 1Y8824-9 Type: ADM IN Attending Dr: Dusty Singh [...] more day CK in am Type II DC No chest pain/SOB or EKG changes DM [...] Allergies and Active Meds Allergies acetaminophen [From Colon] Allergy (Verified 09/20/22 02:12) Unknown Reaction codeine Allergy (Verified 09/20/22 02:12) Hives hydrocodone [From Colon] Allergy (Verified 09/20/22 02:12) Unknown Reaction hydroquinone [...] signed by Dusty Singh MD> 09/20/22 1626 [facility] Work Phone: Progress note Author Donn Joseph [facility] September 21, 2022 4:05pm Note Date/Time September 21, 2022 4: 05pm [facility] [address] [place] [address] Hospitalist Progress Note Signed Patient: Eliz Hewitt MR#: [id number] : 1935 Acct:[id number] Age/Sex: 86 / F Adm Date: 2 Loc: Room: [address] [place] [address] Type: ADM IN Attending Dr: Donn Joseph [...] Responded well to IV fluids. Type II DC No chest pain/SOB or EKG changes DM [...] Allergies and Active Meds Allergies acetaminophen [From Colon] Allergy (Verified 09/20/22 02:12) Unknown Reaction codeine Allergy (Verified 09/20/22 02:12) Hives hydrocodone [From Colon] Allergy (Verified 09/20/22 02:12) Unknown Reaction hydroquinone [...] 09/20/22 09:00 09/21/22 08:42 Aspirin 81 Mg Tablet.Dr PO 09/20/23 08:59 [...] <Electronically signed by Donn Joseph DO> 09/21/22 9545 [facility] Work Phone: Progress note Author Donn Joseph [facility] September 22, 2022 7:14pm Note Date/Time September 22, 2022 7: 14pm [facility] [address] [place] [address] Hospitalist Progress Note Signed Patient: Eliz Hewitt MR#: [id number] : 1935 Acct:[id number] Age/Sex: 86 / F Adm Date: 2 Loc: Room: [address] [place] [address] Type: ADM IN Attending Dr: Donn Joseph [...] Responded well to IV fluids. Type II DC No chest pain/SOB or EKG changes DM [...] Allergies and Active Meds Allergies acetaminophen [From Colon] Allergy (Verified 09/20/22 02:12) Unknown Reaction codeine Allergy (Verified 09/20/22 02:12) Hives hydrocodone [From Colon] Allergy (Verified 09/20/22 02:12) Unknown Reaction hydroquinone [...] 09/20/22 09:00 09/22/22 08:46 Aspirin 81 Mg Tablet.Dr PO 09/20/23 08:59 [...] 12:15 Ondansetron 4 Mg/2 Ml Vial IV-PUSH 01/01/24 12:14 Q6H PRN Nausea And Vomiting Oxycodone [...] <Electronically signed by Donn Joseph DO> 09/22/221913 [facility] Work Phone: Progress note Author Donn Joseph [facility] September 23, 2022 4:09pm Note Date/Time September 23, 2022 4: 09pm [facility] [address] [place] [address] Hospitalist Progress Note Signed Patient: Eliz Hewitt MR#: [id number] : 1935 Acct:[id number] Age/Sex: 86 / F Adm Date: 2 Loc: 4 Room: [address] [place] [address] Type: ADM IN Attending Dr: Donn Joseph [...] Responded well to IV fluids. Type II DC No chest pain/SOB or EKG changes DM [...] Allergies and Active Meds Allergies acetaminophen [From Colon] Allergy (Verified 09/20/22 02:12) Unknown Reaction codeine Allergy (Verified 09/20/22 02:12) Hives hydrocodone [From Colon] Allergy (Verified 09/20/22 02:12) Unknown Reaction hydroquinone [...] Ml Insuln.Pen SUBCUT 09/20/23 16:59 Not Given TID.[facility] Protocol Insulin Glargine 35 units 09/20/22 09:00 09/23/22 08:52 Insulin Glargine 300 Units/3 Ml Insuln.Pen SUBCUT 09/20/23 08:59 35 units DAILY [facility] Administration Melatonin 5 mg 09/23/22 00:15 09/23/22 01:16 Melatonin 5 Mg Tablet PO 09/23/23 00:14 5 mg QHS ZION Administration Metoprolol Succinate 25 mg 09/20/22 [...] 06 Signed By: <Electronically signed by Donn Joseph, DO> 09/23/22 1609 [facility] Work Phone: Summary Purpose Family History Relationship Condition Age at Onset Recorded Date/T vanna father Unknown Not Specified Unknown Relationship Condition Age at Onset Recorded Date/T vanna father Unknown mother Unknown Advance Directives Latest Code Status on File Code Status [...] Referral Specialty Diagnoses / Procedures Referred By Pedro medina Referred To Contact Home Health Diagnoses Syncope, unspecified syncope type Juan Starkey MD [address] [place] [address] [facility] Referral ID Status Reason Start Date Expiration Date V isits Requested Visits Authorized [id number] Authorized 09/05/2022 09/05/2023 3 3 Question Answer Are you the patient's PCP? No Will you be following the patient while they are recieving [facility] services No Who will follow patient outside of the hospital setting, be signing the 485 and communicating with homecare? PCP Was the patient seen today for a Home Care [id number] evaluation? No What is the qualifying diagnosis for the [facility] Services? syncope Which [facility] services are needed? Physical Therapy, Occupational Therapy Reason for [facility] services? assessment for improvement/stability of adherence to health care plan, assessment for improvements/stability of medical condition, improvement of ADLs, medication teaching/adherence Reason the patient is homebound leaving their residence would require the assistance of another person, pain, weakness, and/or musculoskeletal dysfunction Specialty Diagnoses / Procedures Referred By Contact Referred To Contact Cardiovascular Testing INPATIENT DEPARTMENTS [address] [place] [phone] [facility] CARD NON INVASIVE [address] [place] [address] Referral ID Status Reason Start Date Expiration [...] call the [facility] at [phone] (BEAT) if you are unable to keep [...] Fracture of fourth metacarpal bone Chief Complaint 4 MONTH CHECK UP Reason for Visit Benign essential HTN Chronic kidney disease, stage 3b Diabetes mellitus, type 2 Chief Complaint 4 month Reason for Visit Benign essential HTN Chronic kidney disease, stage 3b Diabetes mellitus, type 2 Additional Source Comments REASON FOR VISIT (unrecogniz ed section and content) Reason Comments Trauma/complex Medical Situation Specialty Diagnoses / Procedures Referred By Contac t Referred To Contact Emergency Medicine Diagnoses fall aveolar ridge fracture with traumatic dental extraction teeth 5-9. no thinners [facility] [employer] [place] [address] Phone: [phone] [employer] [place] [address] Phone: [phone] Referral ID Status Reason Start Date Expiration Date Visits Re quested Visits Authorized [id number] 3 INFORMATION SOURCE (unrecogn ized section and content) DATE CREATED AUTHOR 05/29/2022 [facility] DATE CREATED AUTHOR AUTHOR'S ORGANIZ ATION 10/05/2022 [facility] [employer] DATE CREATED AUTHOR AUTHOR'S ORGANIZ ATION 12/05/2022 [facility] DATE CREATED AUTHOR AUTHOR'S ORGANIZ ATION 01/18/2023 [facility] DATE CREATED AUTHOR AUTHOR'S ORGANIZ ATION 03/05/2024 [facility] Care Teams (unrecognized sec tion and content) Team Status: Active Member Role Status Dates Yoko Helms MD Primary Care Provider Active Team Status: Active Member Role Status Dates Yoko Helms MD Primary Care Provide r, Attending Provider Active Start: December 01, 2023 Team Status: Inactive Member Role Status Dates Yoko Helms MD Primary Care Provide r, Attending Provider Active Start: January 04, 2024 End: January 04, 2024 Pneumatic System Conveyor Operator Relationship Specialty Start Date End Date Yoko Helms MD [address] [facility] [place] [address] PCP - General Family Medicine 09/03/22 Pneumatic System Conveyor Operator Relationship Specialty Start Date End Date Yoko Helms MD [address] [facility] [place] [address] PCP - General Family Medicine 09/03/22 Pneumatic System Conveyor Operator Relationship Specialty Start Date End Date Yoko Helms MD [address] [facility] [place] [address] PCP - General Family Medicine 09/03/22 Pneumatic System Conveyor Operator Relationship Specialty Start Date End Date Yoko Helms MD [address] [facility] [place] [address] PCP - General Family Medicine 09/03/22 Pneumatic System Conveyor Operator Relationship Specialty Start Date End Date Yoko Helms MD [address] [facility] [place] [address] PCP - General Family Medicine 09/05/22 Team Status: Active Member Role Status Dates Brad Harper , DO Emergency Provider Active Yoko Helms MD Primary Care Provider Active Donn Joseph , DO Admit Provider, Attending Provider Active Team Status: Inactive Member Role [...] You APRN Other Provider Active Maria Atkinson SENIOR UI UX DEVELOPER-C Other Provider Active Team Status: Inactive Member Role Status Dates Yoko Helms MD Primary Care Provider Active Asad A Latrice , DO Attending Provider Active Team Status: Active Member Role Status Dates Yoko Helms MD Primary Care Provider Active Start: April 05, 2024 Tanisha Arellano MD Attending Provider Active Start: April 05, 2024 Team Status: Inactive Member Role Status Dates Yoko Helms MD Primary Care Provide r, Attending Provider Active Start: May 08, 2024 End: May 08, 2024 Scheduled Active and Recently Administ ered Medications [...] 0150 0243 (Given - Provider: Nery Schneider, ETELVINA) insulin glargine (LANTUS SOLOSTAR/BASAGLAR KWIKPEN) 100 UNIT/ML PEN injection 20 Units, Subcutaneous, AT BEDTIME, First dose on Wed09/04/22 at 2200, Until Discontinued 2200 (Hold/Not Given - Provider: Xenia Barron RN - Reason: Missed Dose) 2200 (Due) insulin lispro (HumaLOG) 100 UNIT/ML injection 2-9 Units, Subcutaneous, 3 TIMES DAILY BEFORE MEALS, First dose on Wed09/04/22 at 0800, Until Discontinued 0829 (Given - Provider: Macario Pérez, ETELVINA)1201 (Given - Provider: Macario Pérez, ETELVINA)1841 (Given - Provider: Dalila Levy RN) 0830 (Given - Provider: Randy Tsang, RN)1200 (Due)1700 (Due) iohexol (OMNIPAQUE) 350 MG/ML injection (COMPLETED) 100 mL, Intravenous Push, Once at Radiology exam, 1 dose, Starting on Wed09/03/22 at 2144, Until Bhumi 09/03/22 at 2144, Imaging Protocol Orders 2144 (Bolus given - Provider: Luz Reeder) lactated ringers iv bolus (COMPLETED) 500 mL, at 999 mL/hr, Intravenous, FLUID BOLUS, 1 dose, On Wed09/04/22 at 0410 0412 (IV New Bag - Provider: Nery Schneider, ETELVINA) lactated ringers iv bolus (COMPLETED) 500 mL, at 125 mL/hr, Intravenous, FLUID BOLUS, 1 dose, On Wed09/05/22 at 1012 1016 (IV New Bag - Provider: Randy Tsang RN)1201 (IV Stop - Provider: Randy Tsang RN) losartan (COZAAR) tablet 12.5 mg, Oral, DAILY, First dose on Wed09/04/22 at 0900, Until Discontinued 0829 (Given - Provider: Macario Pérez, ETELVINA) 1200 (Due - Provider: Randy Tsang RN) [...] BE BASED ON THE PRIMARY CLINICAL RECORDS. [employer] provides no warranty or guarantee of the accuracy or completeness of information in this document.
[2024-07-17 08:56] LABS: Basophils Absolute Auto 0.1 10^3/uL (0.0-0.1); Basophils Percent Auto 0.9 % (0.2-2.0); Eosinophils Absolute Auto 0.6 10^3/uL (0.0-0.7); Eosinophils Percent Auto 9.6 % (0.9-7.0); Hematocrit 34.3 % (36.0-48.0); Hemoglobin 10.7 g/dL (12.0-16.0); Immature Granulocytes Abs Auto 0.03 10^3/uL (0.00-0.03); Immature Granulocytes Pct Auto 0.5 % (0.0-0.5); Lymphocytes Absolute Auto 1.2 10^3/uL (1.2-3.8); Lymphocytes Percent Auto 18.5 % (20.5-60.0); Mean Corpuscular HGB Conc 31.2 g/dL (29.9-35.2); Mean Corpuscular Hemoglobin 29.2 pg (26.7-34.0); Mean Corpuscular Volume 93.5 fL (81.0-99.0); Mean Platelet Volume 9.4 fL (9.5-13.5); Monocytes Absolute Auto 0.6 10^3/uL (0.3-0.8); Neutrophils Absolute Auto 3.9 10^3/uL (1.4-6.5); Neutrophils Percent Auto 60.5 % (43.0-75.0); Platelet Count 217 10^3/uL (150-450); Red Blood Count 3.67 10^6/uL (4.20-5.40); Red Cell Distribution Width 13.9 % (11.0-15.0); White Blood Count 6.4 10^3/uL (4.0-11.0)
[2024-07-17 09:00] LABS: Estimated Average Glucose 111 mg/dL; Glycohemoglobin A1C 5.5 % (4.5-6.2)
[2024-07-17 09:08] LABS: Anion Gap 12.9; BUN Creatinine Ratio 24.6; Calcium 8.4 mg/dL (8.5-10.1); Carbon Dioxide 28.7 mmol/L (21.0-32.0); Chloride 108 mmol/L (98-107); Estimated GFR (African America 24 (>=60 mL/min/1.73m^2); Estimated GFR (Non-African Ame 19 (>=60 mL/min/1.73m^2); Glucose 102 mg/dL (74-106); Potassium 4.6 mmol/L (3.5-5.1); Sodium 145 mmol/L (136-145)
== END 2024-07-17 08:21 | disposition home or self-care (01) ==
LOC: LAB 08:22
PROVIDERS: PCP Family Medicine; Visit Provider Family Medicine
DX: N18.32 Chronic kidney disease, stage 3b (principal); E11.9 Type 2 diabetes mellitus without complications; I10 Essential (primary) hypertension
CPT/HCPCS: 36415; 80048; 83036; 85025

== ENCOUNTER 2024-08-14 13:48 | Outpatient (OUT) | payer MEDICARE, SELFPAY ==
--- NOTE | 2024-08-14 13:57 | CA_ITS ---
Patient Name: JUDIE JOHNSON MR#: [id number] : 1935 Exam Date: 08/14/2024 Ordering Doctor: DR TANISHA ARELLANO M.D. ECHOCARDIOGRAM REPORT PROCEDURE: CA ECHO DOPPLER COMPLETE INDICATIONS: Mitral stenosis, Pulmonary HTN COMPARISON: None. DESCRIPTION: COMPLETE ECHOCARDIOGRAM Real-time transthoracic echocardiography with 2D, M-mode, spectral and color flow Doppler performed. QUALITY: Technical quality was good. LEFT VENTRICLE: Normal chamber size. Mild concentric left ventricular hypertrophy. Global left ventricular systolic function is normal. LV EF: Estimated left ventricular ejection fraction is 65-70%. DIASTOLIC: ATRIAL SEPTUM: LEFT ATRIUM: Severe dilatation. RIGHT ATRIUM: Severe dilatation. RIGHT VENTRICLE: Moderate dilatation. Mildly decreased right ventricular systolic function. TRICUSPID VALVE: Thickened with normal mobility. No stenosis with moderate regurgitation. Severe pulmonary hypertension. RVSP 103 mmHg MITRAL VALVE: Severely thickened with decreased mobility. Severe mitral valve stenosis. Severe mitral annular calcification. Mild to moderate mitral regurgitation. Mitral valve area by pressure half-time 1.4 cm2, mean gradient 16 mmHg at a heartrate of 62 bpm. AORTIC VALVE: TAVR valve appears well seated in the aortic position with elevated Doppler flows. The aortic valve leaflets appear to open well. DVI 0.34, Vmax 3.2 m/s, mean gradient 21 mmHg. No aortic regurgitation. AORTIC ROOT: Normal diameter and appearance. PULMONIC VALVE: Normal thickness and mobility. No stenosis. Moderate regurgitation. PERICARDIUM: No evidence of pericardial effusion. IVC: Collapses with inspirations. Mild dilatation measuring 2.4 cm. PLEURA: CONCLUSION: 1. Mild concentric left ventricular hypertrophy with normal systolic function. Estimated LVEF is 65 to 70%. 2. The right ventricle is moderately dilated and exhibits mildly reduced systolic function. 3. Severe biatrial dilatation. 4. 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 The leaflets appear to open well on 2D imaging. No aortic regurgitation. 5. Severe calcific mitral valve stenosis with mild to moderate regurgitation. 6. Moderate tricuspid and pulmonic regurgitation. 7. Severely elevated right-sided pressures. RVSP is 103 mmHg. Adult Echocardiography Procedure Report Left Ventricle LVEDD (3.7 - 5.6 cm): 4.17 cm LVESD (2.2 - 4.0 cm): 2.97 cm LVIVS thickness (0.6 - 1.2 cm): 1.16 cm LVPW thickness (0.5 - 1.0 cm): 1.13 cm e': 0.06 m/s E - e': 43.90 LVOT Max Gradient: 5.08 mm[Hg] LVOT Area (cm2): 1.13 m/s Peak Velocity (LVOT): 1.13 m/s Mean Velocity (LVOT): 0.77 m/s LVOT Diameter 1.57 cm Left Ventricular Ejection Fraction: 65-70 % Left Atrium LA Volume Index (2D A2C): 102.11 ml/m2 Left Atrium Systolic Dimension: 5.23 cm Mitral Valve MV E to A Ratio: 1.34 Mitral Valve A-Wave Peak Velocity: 1.82 m/s Mitral Valve E-Wave Peak Velocity: 2.44 m/s Right Ventricle RV Internal Diastolic Dimension: 4.71 cm Aorta AO Root Diam: 2.67 cm Ascending Ao Diam: 2.47 cm Aortic Valve AoV Area (Peak Christian): 0.70 cm2, 0.67 cm2 AoV Area (VTI): 0.73 cm2, 0.72 cm2 Peak Velocity(Antegrade Flow): 3.23 m/s, 2.98 m/s, 3.22 m/s, 3.05 m/s Peak Gradient(Antegrade Flow): 41.80 mm[Hg], 35.57 mm[Hg], 41.52 mm[Hg], 37.20 mm[Hg] Mean Velocity(Antegrade Flow): 2.09 m/s, 1.92 m/s, 1.91 m/s, 2.22 m/s Mean Gradient(Antegrade Flow): 20.93 mm[Hg], 17.27 mm[Hg], 19.13 mm[Hg], 22.00 mm[Hg] Velocity Time Integral: 61.67 cm, 61.52 cm, 61.11 cm, 60.89 cm Tricuspid Valve Peak Velocity (Regurgitant Flow): 4.38 m/s, 3.73 m/s, 4.88 m/s, 4.90 m/s Pulmonic Valve Mean Gradient: 1.95 mm[Hg], 2.31 mm[Hg] Mean Velocity: 0.65 m/s, 0.70 m/s Peak Velocity: 1.06 m/s Peak Gradient: 3.84 mm[Hg], 5.23 mm[Hg] Right Atrium Right Atrium Systolic Pressure: 100.68 ml, 105.91 ml, 95.45 ml Dictated by: Tanisha Arellano M.D. on 08/14/2024 at 17:24 Approved by: Tanisha Arellano M.D. on 08/14/2024 at 17:33
== END 2024-08-14 13:49 | disposition home or self-care (01) ==
LOC: CARD 13:49
PROVIDERS: PCP Family Medicine; Visit Provider Internal Medicine Interventional Cardiology
DX: I34.2 Nonrheumatic mitral (valve) stenosis (principal); I27.20 Pulmonary hypertension, unspecified; I50.32 Chronic diastolic (congestive) heart failure
CPT/HCPCS: 93306

== ENCOUNTER 2024-09-08 09:34 | Outpatient (OUT) | payer MEDICARE, SELFPAY ==
[2024-09-08 10:52] LABS: Anion Gap 12.5; BUN Creatinine Ratio 29.3; Calcium 8.8 mg/dL (8.5-10.1); Carbon Dioxide 28.3 mmol/L (21.0-32.0); Chloride 104 mmol/L (98-107); Estimated GFR (African America 27 (>=60 mL/min/1.73m^2); Estimated GFR (Non-African Ame 23 (>=60 mL/min/1.73m^2); Glucose 108 mg/dL (74-106); Sodium 140 mmol/L (136-145)
[2024-09-08 10:56] LABS: Potassium 4.8 mmol/L (3.5-5.1)
== END 2024-09-08 09:35 | disposition home or self-care (01) ==
LOC: LAB 09:36
PROVIDERS: PCP Family Medicine; Visit Provider Nurse Practitioner Family
DX: I27.20 Pulmonary hypertension, unspecified (principal)
CPT/HCPCS: 36415; 80048

== ENCOUNTER 2024-11-09 13:18 | Outpatient (OUT) | payer MEDICARE, SELFPAY ==
[2024-11-09 15:35] LABS: Anion Gap 14.9; BUN Creatinine Ratio 27.7; Calcium 9.2 mg/dL (8.5-10.1); Carbon Dioxide 26.9 mmol/L (21.0-32.0); Chloride 104 mmol/L (98-107); Estimated GFR (African America 23 (>=60 mL/min/1.73m^2); Estimated GFR (Non-African Ame 19 (>=60 mL/min/1.73m^2); Glucose 105 mg/dL (74-106); Potassium 4.8 mmol/L (3.5-5.1); Sodium 141 mmol/L (136-145)
== END 2024-11-09 13:19 | disposition home or self-care (01) ==
LOC: LAB 13:20
PROVIDERS: PCP Family Medicine; Visit Provider Internal Medicine Interventional Cardiology
DX: I27.20 Pulmonary hypertension, unspecified (principal); I50.32 Chronic diastolic (congestive) heart failure; N18.32 Chronic kidney disease, stage 3b
CPT/HCPCS: 36415; 80048

== ENCOUNTER 2024-12-18 12:52 | Outpatient (OUT) | payer MEDICARE, SELFPAY ==
--- NOTE | 2024-12-18 13:00 | CA_ITS ---
Patient Name: JUDIE JOHNSON MR#: [id number] : 1935 Exam Date: 12/18/2024 Ordering Doctor: DR TANISHA ARELLANO M.D. ECHOCARDIOGRAM REPORT PROCEDURE: CA ECHO DOPPLER COMPLETE INDICATIONS: Bioprosthetic aortic valve, mitral valve stenosis, pulmonary hypertension COMPARISON: None. DESCRIPTION: COMPLETE ECHOCARDIOGRAM Real-time transthoracic echocardiography with 2D, M-mode, spectral and color flow Doppler performed. QUALITY: Technical quality was good. LEFT VENTRICLE: Normal chamber size. Normal left ventricular wall thickness. Hyperdynamic systolic function. Mild left ventricular outflow obstruction. Resting gradient 21 mmHg. Peak gradient with Valsalva maneuver 28 mmHg. This is likely related to hyperdynamic contractility of the ventricle. LV EF: Hyperdynamic left ventricular ejection fraction, (>75%). DIASTOLIC: ATRIAL SEPTUM: Visually appears intact. LEFT ATRIUM: Severe dilatation. RIGHT ATRIUM: Moderate dilatation. RIGHT VENTRICLE: Normal chamber size. Normal right ventricular systolic function. TRICUSPID VALVE: Normal mobility and thickness. No stenosis with mild to moderate regurgitation. Doppler studies reveal severely (>60) elevated right sided pressures. RVSP 70 mmHg MITRAL VALVE: Severely thickened with decreased mobility. Severe mitral valve stenosis. Severe mitral annular calcification. Mild to moderate mitral regurgitation. MVA 0.72 cm2, PHT 303 ms AORTIC VALVE: Bio-Prosthetic valve appears well seated in the aortic position with mildly elevated doppler flows. DVI 0.5, Mean 20.71 mmHg, peak velocity 3.3 m/s. Trivial aortic regurgitation. AORTIC ROOT: Normal diameter and appearance. PULMONIC VALVE: Normal thickness and mobility. No stenosis. Mild regurgitation. PERICARDIUM: No evidence of pericardial effusion. IVC: IVC is normal in size, does not fully collapse. PLEURA: CONCLUSION: 1. Normal left ventricular size with hyperdynamic systolic function. LVEF is 75 to 80%. 2. Normal right ventricular size and systolic function. 3. Moderate to severe biatrial dilatation. 4. Bioprosthetic [TAVR] aortic valve is well-seated with mildly elevated Doppler flows and no regurgitation. 5. Severe mitral valve stenosis with mild to moderate regurgitation. 6. Mild to moderate tricuspid regurgitation. 7. Severely elevated right-sided pressures. RVSP is 70 mmHg. Adult Echocardiography Procedure Report Left Ventricle LVEDD (3.7 - 5.6 cm): 4.28 cm LVESD (2.2 - 4.0 cm): 2.69 cm LVIVS thickness (0.6 - 1.2 cm): 0.99 cm LVPW thickness (0.5 - 1.0 cm): 0.81 cm LVOT Max Gradient: 10.17 mm[Hg] LVOT Area (cm2): 1.59 m/s Peak Velocity (LVOT): 1.59 m/s Mean Velocity (LVOT): 0.89 m/s LVOT Diameter 1.51 cm Left Atrium LA Volume Index (2D A2C): 84.05 ml/m2 Left Atrium Systolic Dimension: 3.38 cm Mitral Valve MV E to A Ratio: 1.36 Mitral Valve A-Wave Peak Velocity: 1.78 m/s Mitral Valve E-Wave Peak Velocity: 2.41 m/s Right Ventricle Aorta AO Root Diam: 2.32 cm Aortic Valve AoV Area (Peak Christian): 0.86 cm2, 1.08 cm2 AoV Area (VTI): 0.93 cm2, 1.26 cm2 Peak Velocity(Antegrade Flow): 2.65 m/s, 3.30 m/s Peak Gradient(Antegrade Flow): 28.07 mm[Hg], 43.47 mm[Hg] Mean Velocity(Antegrade Flow): 1.68 m/s, 2.05 m/s Mean Gradient(Antegrade Flow): 13.79 mm[Hg], 20.71 mm[Hg] Velocity Time Integral: 51.49 cm, 69.58 cm Tricuspid Valve Peak Velocity (Regurgitant Flow): 3.08 m/s, 3.45 m/s, 3.92 m/s Pulmonic Valve Mean Gradient: 2.34 mm[Hg] Mean Velocity: 0.72 m/s Peak Velocity: 1.07 m/s, 1.13 m/s Peak Gradient: 5.07 mm[Hg], 4.57 mm[Hg] Right Atrium Right Atrium Systolic Pressure: 73.71 ml, 73.71 ml Dictated by: Tanisha Arellano M.D. on 12/18/2024 at 20:02 Approved by: Tanisha Arellano M.D. on 12/18/2024 at 20:08
== END 2024-12-18 12:53 | disposition home or self-care (01) ==
LOC: CARD 12:52
PROVIDERS: PCP Family Medicine; Visit Provider Internal Medicine Interventional Cardiology
DX: I34.2 Nonrheumatic mitral (valve) stenosis (principal); Z95.2 Presence of prosthetic heart valve; I27.20 Pulmonary hypertension, unspecified; I36.1 Nonrheumatic tricuspid (valve) insufficiency
CPT/HCPCS: 93306

== ENCOUNTER 2024-12-18 13:02 | Outpatient (OUT) | payer MEDICARE, SELFPAY ==
[2024-12-18 14:03] LABS: Creatinine Urine Random 132.53 mg/dL (20.00-300.00); Microalbumin Urine Random <1.3 mg/dL (<=30.0)
[2024-12-18 14:05] LABS: Basophils Absolute Auto 0.1 10^3/uL (0.0-0.1); Basophils Percent Auto 0.6 % (0.2-2.0); Eosinophils Absolute Auto 0.6 10^3/uL (0.0-0.7); Eosinophils Percent Auto 7.5 % (0.9-7.0); Hematocrit 36.5 % (36.0-48.0); Hemoglobin 11.8 g/dL (12.0-16.0); Immature Granulocytes Abs Auto 0.03 10^3/uL (0.00-0.03); Immature Granulocytes Pct Auto 0.4 % (0.0-0.5); Lymphocytes Absolute Auto 1.5 10^3/uL (1.2-3.8); Mean Corpuscular HGB Conc 32.3 g/dL (29.9-35.2); Mean Corpuscular Hemoglobin 29.5 pg (26.7-34.0); Mean Corpuscular Volume 91.3 fL (81.0-99.0); Mean Platelet Volume 9.8 fL (9.5-13.5); Monocytes Absolute Auto 0.8 10^3/uL (0.3-0.8); Monocytes Percent Auto 10.3 % (1.7-12.0); Neutrophils Absolute Auto 4.9 10^3/uL (1.4-6.5); Neutrophils Percent Auto 62.2 % (43.0-75.0); Platelet Count 234 10^3/uL (150-450); Red Cell Distribution Width 13.8 % (11.0-15.0); White Blood Count 7.9 10^3/uL (4.0-11.0)
[2024-12-18 14:21] LABS: Estimated Average Glucose 146 mg/dL; Glycohemoglobin A1C 6.7 % (4.5-6.2)
== END 2024-12-18 13:03 | disposition home or self-care (01) ==
LOC: LAB 13:03
PROVIDERS: PCP Family Medicine; Visit Provider Family Medicine
DX: E11.69 Type 2 diabetes mellitus with other specified complication (principal); Z79.4 Long term (current) use of insulin
CPT/HCPCS: 36415; 82043; 82570; 83036; 85025

== ENCOUNTER 2025-06-01 09:46 | Outpatient (OUT) | payer MEDICARE, SELFPAY ==
--- OUTSIDE RECORDS SUMMARY | 2025-06-01 09:51 | XMS_ITS | Encounter Summary ---
Author Organization [facility] Address [address] [place] [address] Care Team Providers Care [employer] Consultant Name Role Phone Marlen Wilkerson MD Primary Care Provider [phone] Reason for Visit * Reason Comments Med Refill Encounter Details Date Type Department Care Team (Late st Contact Info) Description 08/05/2023 Refill [facility] [address] [place] [address] Griffin Arellano MD [address] [facility] [address] [facility] [place] [address] Chronic diastolic congestive heart failure (CMS/HCC) Social History Tobacco Use Types Packs/Day Years Used Date Smoking Tobacco: Never Smokeless Tobacco: Never Alcohol Use Standard Drinks/Week Comments Never 0 (1 standard drink = 0.6 oz pur e alcohol) Comments Unknown Sex and Gender Information Value Date Recorded Sex Assigned at Female 06/25/2022 10:26 AM EDT Legal Sex Female 10:13 PM EDT Gender Identity Female 06/25/2022 10:26 AM EDT Sexual Orientation Not on file documented as of this encounter Plan of Treatment Upcoming Encounters Date Type Department Care Team (Late st Contact Info) Description 07/06/2025 3:45 PM EDT Office Visit [facility] [address] [place] [address] Griffin Arellano MD [address] [facility] [address] [facility] [place] [address] documented as of this encounter Visit Diagnoses Diagnosis Chronic diastolic congestive heart failure (CMS/HCC) documented in this encounter Care Teams [employer] Portal Consultant Relationship Specialty Start Date End Date Marlen Wilkerson MD [address] [facility] #A PCP - General 05/05/22 documented as of this encounter
--- OUTSIDE RECORDS SUMMARY | 2025-06-01 09:51 | XMS_ITS | Encounter Summary ---
Author Organization [facility] Address [address] [place] [address] Care Team Providers Care Inpatient Pharmacist Name Role Phone Marlen Wilkerson MD Primary Care Provider [phone] Reason for Visit * Reason Comments Med Refill Encounter Details Date Type Department Care Team (Late st Contact Info) Description 10/09/[address] [facility] [address] [place] [address] Griffin Arellano MD [address] [place] [address] Social History Tobacco Use Types Packs/Day Years [...] Description 07/06/2025 3:45 PM EDT Office Visit [facility] [address] [place] [address] Griffin Arellano MD [address] [facility] [address] documented as of this encounter Visit Diagnoses Not on filedocumented in this encounter Care Teams Inpatient Pharmacist Relationship Specialty Start Date End Date Marlen Wilkerson MD [address] [facility] #A PCP - General 05/05/22 documented as of this encounter
--- OUTSIDE RECORDS SUMMARY | 2025-06-01 09:51 | XMS_ITS | Encounter Summary ---
Author Organization [facility] Address [address] [place] [address] Care Team Providers Care Fiberglass Boat Finisher Name Role Phone Marlen Wilkerson MD Primary Care Provider [phone] Reason for Visit * Reason Comments Med Refill Encounter Details Date Type Department Care Team (Late st Contact Info) Description 03/18/[address] [facility] [address] [place] [address] Griffin Arellano MD [address] [place] [address] Social History Tobacco Use Types [...] 07/06/2025 3:45 PM EDT Office Visit [facility] [address] [place] [address] Griffin Arellano MD [address] [place] [address] documented as of this encounter Visit Diagnoses Not on filedocumented in this encounter Care Teams Fiberglass Boat Finisher Relationship Specialty Start Date End Date Marlen Wilkerson MD [address] [facility] #A PCP - General 05/05/22 documented as of this encounter
--- OUTSIDE RECORDS SUMMARY | 2025-06-01 09:51 | XMS_ITS | Encounter Summary ---
Author Organization [facility] Address [address] [place] [address] Care Team Providers Care Piece Meat Trimmer Name Role Phone Marlen Wilkerson MD Primary Care Provider [phone] Reason for Visit * Reason Comments Med Refill Encounter Details Date Type Department Care Team (Late st Contact Info) Description 07/31/2022 Refill [facility] [address] [place] [address] Griffin Arellano MD [address] [facility] [address] [facility] [place] [address] Social History Tobacco Use Types [...] AM EDT Sexual Orientation Not on file COVID-19 Exposure Response Date Recorded In the last 10 days, have yo u been in contact with someone who was confirmed or suspected to have Coronavirus/COVID-19? No / Unsure 07/27/2022 2:23 PM EST documented as of this encounter Plan of Treatment Upcoming Encounters Date Type Department Care Team (Late st Contact Info) Description 07/06/2025 3:45 PM EDT Office Visit [facility] [address] [place] [address] Griffin Arellano MD [address] [facility] [address] [facility] [place] [phone] documented as of this encounter Visit Diagnoses Not on filedocumented in this encounter Care Teams Piece Meat Trimmer Relationship Specialty Start Date End Date Marlen Wilkerson MD [address] [facility] #A PCP - General 05/05/22 documented as of this encounter
--- OUTSIDE RECORDS SUMMARY | 2025-06-01 09:51 | XMS_ITS | Clinical Summary ---
Author Organization [facility] Address [address] [place] [address] Care Team Providers Care Diamond Expert Name Role Phone Marlen Wilkerson MD Primary Care Provider [phone] Allergies Active Allergy Reactions Criticality Noted Date Comments Acetaminophen Unknown 09/23/2022 Codeine Hives 09/18/2021 Hydrocodone-Acetaminophen 06/25/2022 Hydroquinone Rash,Unknown Low 09/18/2021 Hydroxychloroquine GI intolerance 09/18/2021 Sulfamethoxazole Unknown 09/23/2022 Sulfamethoxazole-Trimethoprim Hives 2020 Trimethoprim Unknown 09/23/2022 Medications insulin detemir (Levemir U-100 Insulin) 100 unit/mL injection Levemir U-100 Insulin 100 unit/mL subcutaneous solution INJECT 35 UNITS SUBCUTANEOUSLY ONCE A DAY Active Basaglar KwikPen U-100 Insulin 100 unit/mL (3 mL) injection pen 07/22/20 23 Active sodium bicarbonate 650 mg tablet Take 325 mg by mouth in the morning and at bedtime. Active potassium chloride CR (K-Tab) 20 mEq ER tabletIndication s:Chronic diastolic congestive heart failure (CMS/HCC) TAKE 1 TABLET BY MOUTH EVERY DAY 90 tablet 3 06/21/20 24 Active metoprolol succinate XL (Toprol-XL) 25 mg 24 hr tabletIndication s:Nonrheumatic aortic valve stenosis,Primary hypertension,Cor onary artery disease involving ekl[place]na coronary artery of ekl[place]na heart without angina pectoris,Benign hypertensive heart disease with heart failure (CMS/HCC) TAKE 1 TABLET BY MOUTH EVERY DAY IN THE MORNING 90 tablet 3 06/21/20 24 Active sildenafil (Revatio) 20 mg tabletIndication s:Pulmonary hypertension (CMS/HCC) Take 1 tablet (20 mg) by mouth three times daily. Please hold Amlodipine if SBP <110, Call clinic for further instructions. 270 tablet 3 07/05/20 24 025 Active Additional Information Patient taking differently:20 mg oral 3 times daily,(No instructions reported), Reported on 10/06/2024 furosemide (Lasix) 40 mg tabletIndication s:Pulmonary hypertension (CMS/HCC),Non-rh eumatic mitral valve stenosis,Chronic diastolic congestive heart failure (CMS/HCC) Take 1 tablet (40 mg) by mouth three times daily. 270 tablet 3 10/06/19 25 026 Active Tresiba FlexTouch U-100 100 unit/mL (3 mL) injection Inject 100 Units under the skin in the morning. 12/02/19 25 Active insulin glargine-yfgn 100 unit/mL (3 mL) insulin pen Inject 100 Units under the skin in the morning. 11/15/19 25 Active aspirin 81 mg EC tabletIndication s:Nonrheumatic aortic valve stenosis TAKE 1 TABLET BY MOUTH EVERY DAY IN THE MORNING 90 tablet 3 01/09/20 25 Active dapagliflozin propanediol (Farxiga) 10 mgIndications:Ac [place] combined systolic and diastolic heart failure (CMS/HCC),Chroni c combined systolic and diastolic heart failure, NYHA class 2 (CMS/HCC) Take 1 tablet (10 mg) by mouth in the morning. 90 tablet 3 02/29/20 25 026 Active Active Problems Problem Noted Date Diagnosed Date Benign essential HTN 03/03/2024 Corns and callosities 03/03/2024 Hammer toe 03/03/2024 Ingrowing nail 03/03/2024 Tinea unguium 03/03/2024 Fall 11/01/2023 11/01/2023 Foot drop, bilateral 11/01/2023 11/01/2023 Unspecified bacterial pneumonia 10/05/2022 Chronic combined systolic an d diastolic heart failure, NYHA class 2 09/24/2022 Assessment & Plan (08/11/2023 2:12 PM EST): [facility] III C, currently euvolemic and without exacerbation Continue GDMT-ASA, farxiga, toprol, Diuretic therapy- lasix Monitor daily weights, I&O, fluid restriction 1.5-2L/day, renal function and electrolytes Assessment & Plan (06/09/2023 8:49 AM EDT): [facility] III- Assessment patient does not appear [...] and management forward May benefit from nephrology referral Assessment & Plan (01/29/2023 3:41 PM EDT): [facility] II- currently without exacerbation, fairly euvolemic Continue GDMT- ASA, toprol and lasix Diuretic therapy- lasix Monitor daily weights, I&O, fluid restriction 1.5-2L/day, renal function and electrolytes- Cognitive communication deficit 09/24/2022 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, mild, without behavioral disturbance, psychotic disturbance, mood disturbance, and anxiety 09/24/2022 History of falling 09/24/2022 Muscle weakness (generalized) 09/24/2022 Unspecified abnormalities of gait and mobility 0 09/24/2022 Cognitive communication disorder 09/24/2022 Altered mental status, unspecified 09/23/2022 Anemia, unspecified 09/23/2022 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 Assessment & Plan (01/29/2023 3:41 PM EDT): Coronary artery disease is stable without any concerning symptoms Continue GDMT- ASA, toprol Displaced fracture of base o f fourth metacarpal bone, left hand, subsequent encounter for fracture with routine healing 09/23/2022 Myocardial infarction type 2 09/23/2022 Assessment & Plan (08/11/2023 2:11 PM EST): Coronary artery disease is stable Rhabdomyolysis 09/23/2022 Tachycardia, unspecified 09/23/2022 Type 2 diabetes mellitus wit h diabetic chronic kidney disease 09/23/2022 Chronic kidney disease, unspecified 09/23/2022 Syncope 09/04/2022 Stage 3b chronic kidney disease 07/27/2022 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 Overall pt states she feels better, reports WILKES but states this is improved since RHC. Assessment & Plan (06/07/2023 4:43 PM EDT): Patient with noted worsening right-sided pressures with RVSP [...] possible vasoreactivity study end of June Dr. Arellano. 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 -s/p valve in valve TAVR using a 20 mm Jensen Ultra S3 transcatheter heart valve on 01/13/22 Continue all meds Assessment & Plan (06/07/2023 4:46 PM EDT): prior history of bioprosthetic aortic valve replacement [21 mm C-E Magna pericardial valve] in 10/10/2008 Continue toprol and remains on lasix diuresis Assessment & Plan (01/29/2023 3:46 PM EDT): bioprosthetic aortic valve replacement in 2008 with a 21 mm C-E Magna pericardial valve -s/p valve in valve TAVR using a 20 mm Jensen Ultra S3 transcatheter heart valve on 01/13/22 Reviewed echocardiogram with pt and son, Aortic valve with normal doppler flows Repeat Echocardiogram in 6 months and f/u With Dr Arellano H/O aortic valve replacement 09/18/2021 Left humeral fracture 09/18/2021 CKD (chronic kidney disease) stage 3, GFR 30-59 ml/min 09/18/2021 Benign hypertensive cardiomyopathy with heart fa ilure 02/01/2019 Assessment & Plan (08/11/2023 2:12 PM EST): HTn is well controlled 110/43 Continue all meds- norvasc was DCd after initiation of Sildenafil for Pulm HTN and noted hypotension and lightheadedness. Non-rheumatic mitral valve stenosis 02/01/2019 Assessment & Plan (08/11/2023 2:11 PM EST): stable Assessment & Plan (06/07/2023 4:43 PM EDT): stable Assessment & Plan (01/29/2023 3:43 PM EDT): Continue to monitor with routine echocardiogram. D/W pt and son to call office for increased shortness of breath, palpitations, leg swelling, chest pain or any concerning symptoms and they voiced understanding Diabetes mellitus 02/01/2019 Resolved Problems Problem Noted Date Diagnosed Date Resolved Date Diastolic heart failure 01/22/2022 09/2 Combined systolic and diasto lic congestive heart failure, NYHA class 2 09/18/2021 06/09/2023 Assessment & Plan (06/09/2023 8:45 AM EDT): Family History Medical History Relation Name Comments Emphysema Father Diabetes Mother Relation Name Status Comments Father Mother Social History Tobacco Use Types Packs/Day Years Used Date Smoking Tobacco: Never Smokeless Tobacco: Never Tobacco Cessation:Counseling Given: Not Answered Alcohol Use Standard Drinks/Week Comments Never 0 (1 standard drink = 0.6 oz pur e alcohol) [place] Safety & Environment Answer Date Rec orded Fear of Current or Ex-Partner Not on file Emotionally Abused Not on file 11/11/2023 Physically Abused Not on file 11/11/2023 Sexually Abused Not on file 11/11/2023 Physically or Sexually Abused Not on file Comments No Sex and Gender Information Value Date Recorded Sex Assigned at Female 06/25/2022 10:26 AM EDT Legal Sex Female 10:13 PM EDT Gender Identity Female 06/25/2022 10:26 AM EDT Sexual Orientation Not on file Last Filed Vital Signs Vital Sign Reading Time Taken Comments Blood Pressure 148/55 01/05/2025 3:10 PM EDT Pulse 64 01/05/2025 3:10 PM EDT Temperature 36.9 C (98.4 F) 02/17/2022 1:56 PM EDT Respiratory Rate 11 08/11/2023 1:29 PM EST Oxygen Saturation 96% 01/05/2025 3:10 PM EDT Inhaled Oxygen Concentration - - Weight 71.2 kg (157 lb) 01/05/2025 3:10 PM EDT Height 160 cm (5' 3 ) 01/05/2025 3:10 PM EDT Body Mass Index 27.81 01/05/2025 3:10 PM EDT Plan of Treatment Upcoming Encounters Date Type Department Care Team (Late st Contact Info) Description 07/06/2025 3:45 PM EDT Office Visit [facility] [address] [place] [address] Griffin Arellano MD [address] [facility] [address] [facility] [place] [address] Health Maintenance Due Date Last Done Comments Medicare Annual Wellness (AWV) 1935 Diabetes: Retinopathy Screening 1946 Depression Screening 1948 Fall Risk Screening 2001 Adult Tetanus 01/29/2013 01/29/2003 Diabetes: Hemoglobin A1C 12/02/2022 09/03/2022 Zoster Vaccines (2 of 2) 09/15/2024 07/21/2024 COVID-19 Vaccine ( season) 2025 06/01/2024, 08/20/2023, 10/06/2022, Additional history exists Influenza Vaccine (#1) 2025 , 08/20/2023, 07/20/2022, Additional history exists Pneumococcal Vaccine: 50+ Years Completed 05/30/2021, 05/30/2020, 05/25/2020, Additional history exists HIB Vaccines Aged Out No longer eligi ble based on patient's age to complete this topic HPV Vaccines Aged Out No longer eligi ble based on patient's age to complete this topic IPV Vaccines Aged Out No longer eligi ble based on patient's age to complete this topic Meningococcal B Vaccine Aged Out No l onger eligible based on patient's age to complete this topic Meningococcal Vaccine Aged Out No lc [place] eligible based on patient's age to complete this topic Rotavirus Vaccines Aged Out No longer eligible based on patient's age to complete this topic Insurance MEDICARE Member Subscriber Plan / Payer (Ef fective 2001-Present) Name:Eliz Hewitt Member ID:[id number] Relation to Subscriber:Self Name:Eliz Hewitt Subscriber ID:[id number] Payer ID:[id number] Group ID:Not on file Type:Medicare Address: [address] Care Teams Diamond Expert Relationship Specialty Start Date End Date Marlen Wilkerson MD [address] [facility] PCP - General 05/05/22
--- OUTSIDE RECORDS SUMMARY | 2025-06-01 09:51 | XMS_ITS | Clinical Summary ---
Author Organization [facility] Address [address] [place] [address] Phone Care Team Providers Care Lawn Mower Sharpener Name Role Phone Marlen Wilkerson MD Primary Care Provider [phone] Social History Tobacco Use Types Packs/Day Years Used Date Smoking Tobacco: Never Assessed Comments Unknown Sex and Gender Information Value Date Recorded Sex Assigned at Not on file Legal Sex Female 2:55 PM EST Gender Identity Not on file Sexual Orientation Not on file Plan of Treatment Health Maintenance Due Date Last Done Comments Lipid Panel 1935 Yearly Adult Physical 1935 DTaP/Tdap/Td Vaccines (1 - Tdap) 1958 Pneumococcal Vaccine (1 of 1 - PCV) 1986 Zoster Vaccines (1 of 2) 1986 Bone Density Scan 2001 RSV High Risk: (Elderly (60+ ) or Population) (1 - 1-dose 75+ series) 2011 COVID-19 Vaccine ( - 2023-2 5 season) 2025 Influenza Vaccine (#1) 2025 HIB Vaccines Aged Out No longer eligi ble based on patient's age to complete this topic HPV Vaccines Aged Out No longer eligi ble based on patient's age to complete this topic Hepatitis A Vaccines Aged Out No long er eligible based on patient's age to complete this topic Hepatitis B Vaccines Aged Out No long er eligible based on patient's age to complete this topic IPV Vaccines Aged Out No longer eligi ble based on patient's age to complete this topic Meningococcal Vaccine Aged Out No lc [place] eligible based on patient's age to complete this topic Rotavirus Vaccines Aged Out No longer eligible based on patient's age to complete this topic Care Teams Lawn Mower Sharpener Relationship Specialty [place] [address] [place], [place] [id number] PCP - General 09/22/22
--- OUTSIDE RECORDS SUMMARY | 2025-06-01 09:51 | XMS_ITS | Clinical Summary ---
Author Organization [facility] Address [address] [facility] [place] [address] Care Team Providers Care Mud Mill Tender Name Role Phone Marlen Wilkerson MD Primary Care Provider [phone] Source Comments The following information is NOT included in Care Everywhere downloads:Psychiatric notes, ECG results, Cardiac Rehab notes, Pulmonary Function notes, data from [facility] (includes but not limited toPregnancy data,audiograms, eye exams, pre-surgical evaluation notes, well-child exam data).[facility] Allergies Active Allergy Reactions Criticality Noted Date Comments Codeine Hives 09/18/2021 Hydrocodone Hives 09/18/2021 Hydrocodone-Acetaminophen 06/25/2022 Hydroquinone Rash Low 09/18/2021 Hydroxychloroquine Nausea 09/18/2021 Sulfamethoxazole W-Trimethoprim Hives 08/22 Medications aspirin EC 81 MG tablet Take 81 mg by mouth. 07/27/20 Active OneTouch Ultra strip USE 1 STRIP TO TEST 3 TIMES A DAY 07/16/20 Active Levemir 100 UNIT/ML injection INJECT 35 UNITS SUBCUTANEOUSLY EVERY DAY 08/23/20 Active losartan (COZAAR) 25 MG tablet Take 0.5 Tablets by mouth daily. 09/23/19 Active metoprolol (TOPROL-XL) 25 mg XL tablet Take 25 mg by mouth daily. 07/11/20 Active sodium bicarbonate 650 MG tablet Take 1,300 mg by mouth 2 times daily. 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 07/24/2022 Open fracture of proximal end of left humerus wi th nonunion 06/25/2022 Severe aortic stenosis 09/19/2021 Acute on chronic diastolic CHF (congestive heart failure) 09/18/2021 H/O aortic valve replacement 09/18/2021 CKD (chronic kidney disease) stage 3, GFR 30-59 ml/min 09/18/2021 Diabetes mellitus 02/01/2019 HTN (hypertension) 02/01/2019 Non-rheumatic mitral valve stenosis 02/01/2019 Family History Medical History Relation Name Comments Diabetes Mellitus Mother Hypertension Mother Relation Name Status Comments Mother Social History Tobacco Use Types Packs/Day Years Used Date Smoking Tobacco: Never Tobacco Cessation:Counseling Given: Not Answered Alcohol Use Standard Drinks/Week Comments Never 0 (1 standard drink = 0.6 oz pur e alcohol) Substance Use Types Use/Week Comments Never Comments Unknown Sex and Gender Information Value Date Recorded Sex Assigned at Not on file Legal Sex Female 5:17 PM EST Gender Identity Not on file Sexual Orientation Not on file Last Filed Vital Signs Vital Sign Reading Time Taken Comments Blood Pressure 179/68 09/05/2022 11:09 AM EST Pulse 71 09/05/2022 11:09 AM EST Temperature 36.4 C (97.6 F) 09/04/2022 12:35 AM EST Respiratory Rate 16 09/05/2022 11:09 AM EST Oxygen Saturation 97% 09/05/2022 11:09 AM EST Inhaled Oxygen Concentration - - Weight - - Height - - Body Mass Index - - Plan of Treatment Health Maintenance Due Date Last Done Comments Foot Exam 1935 Eye Exam 1935 Urine Protein (microalbumin) 1935 Tdap Booster 1954 Hepatitis A (HAV) Vaccine (optional start 19+ years) 1955 Pneumococcal Vaccine(s) (50+ yrs) (1 of 2 - PCV) 1955 Shingles (RZV) Vaccine (1 of 2) 1986 Hepatitis B (HBV) Vaccine (optional start 60+ years) 1996 Bone Densitometry 2001 Annual Wellness Visit (G0438) 10/21/2002 RSV vaccine (adult) (1 - 1-d ose 75+ series) 2011 Hemoglobin A1C 03/04/2023 09/03/2022 Lipid Profile 09/03/2023 09/03/2022 Basic Metabolic Panel 09/05/2023 09/05/2022 , 09/03/2022, 09/22/2021, Additional history exists COVID-19 Vaccine ( - 2023-2 5 season) 2025 Influenza Vaccine (#1) 2025 Ejection Fraction Completed 09/04/2022 Pap Smear Discontinued Procedures Procedure Name Priority Date/Time Associated Diagnosis Comments BASIC METABOLIC PANEL STAT 09/05/2022 8:10 AM EST ECHOCARDIOGRAM REPORT 09/04/2022 10:49 AM EST FULL LIPID PROFILE STAT 09/03/2022 8: 41 PM EST HEMOGLOBIN A1C STAT 09/03/2022 8:41 PM EST from Last 3 Months or Most Recently Relevant to Health Maintenance Results * (ABNORMAL) BASIC METABOLIC PANEL (09/05/2022 8:10 AM EST) Glucose 258(H) 80 - 116 mg/dL 09/05/2022 10:00 AM EST [facility] Sodium 137 135 - 148 mmol/L 09/05/2022 10:00 AM EST [facility] Potassium 4.4 3.3 - 5.3 mmol/L 09/05/2022 10:00 AM EST [facility] Carbon Dioxide 25 21 - 30 mmol/L 09/05/2022 10:00 AM EST [facility] Chloride 101 97 - 111 mmol/L 09/05/2022 10:00 AM EST [facility] Blood Urea Nitrogen 38(H) 8 - 22 mg/dL 09/05/2022 10:00 AM EST [facility] Creatinine 1.47(H) 0.50 - 1.10 mg/dL 09/05/2022 10:00 AM EST [facility] Calcium 8.3(L) 8.4 - 10.4 mg/dL 09/05/2022 10:00 AM EST [facility] Anion Gap 15 10 - 20 09/05/2022 10:00 AM EST [facility] Estimated GFR (CKD-EPI) 35(L) >=60 mL/min/1. 73sqm 09/05/2022 10:00 AM EST [facility] Comment: 2020 CKD EPI Equation using Creatinine [...] Inclusion of Race in Diagnosing Kidney Disease. [place] Journal of Kidney Diseases 202;79(2):268- 88.e1. 2. N Engl J Med 2021 Vol. 385 Issue 19 Pages [id number] Blood BLOOD SPECIMEN / Unknown 09/05/2022 8:10 AM EST 09/05/2022 9:28 AM EST us Juan Johnson MD [facility] Final Result [facility] [address] [place] [phone] * ECHOCARDIOGRAM REPORT (09/04/2022 10:49 AM EST) Left Ventricular Ejection Fraction 70 % [facility] Mitral Stenosis severe [facility] Mitral Regurgitation physiologic [facility] Anatomical Region Laterality Modality Other 09/04/2022 10:4 9 AM EST Narrative Procedure Note Etienne Antoine MD - 09/04/2022 10:49 AM EST Transthoracic Echocardiographic Report Name: KASH MICHAEL Interpreting MATT Quintero MD Physician: : [id number] Referring ANTHONY JOSE DO Physician: Age: 86 Agricultural Engineer: Cinthya Borja [facility] Exam Date: 09/04/2022 Fellow: 10:49 AM CVT: PCP: Gender: Female Height 160.02 cm Weight 69.8544 kg Encounter #: BSA 1.73 m^2 Study Emergency BMI 27.28 kg/m^2 Location: Department Technical Fair-Poor Quality: Type of Study: TTE procedure: 2D echocardiogram, M-Mode,Doppler , Color Doppler, Contrast study. Indications for Study:Congestive heart failure. Tech. Comments Patient identified by name and date of . Doctor's order(s)verified. Patient's preferred language is Persian . Verbal consent for left heart echo contrast was obtained afterexplanation of the risks (1/10,000 significant and 1/3,000 minor allergic reactions)and benefits (needed enhancement of imaging) were explained. Administration of 1 dose(s) of 1.5 ml of Definity diluted to .5 ml ofsaline was administered by cinthya borja [facility]. Supine BP: 149/52 mmHg Patient Status: Routine Contrast Medium: Definity. Left Ventricle Value Normal Value Normal LVIDd: 4.4 cm <5.7 cm Post. Wall 1.1 cm <1.2 cm Thickness: Septum 1 cm <1.2 cm LV FS: 45.45 % 30-40% Diastolic: Systolic 2.4 cm <4 cm LV Mass 183.42g Dimension: LV Mass Index: 106 <110Women<120 g/m^2 Men Left Atrium LA Dimension: 5.1 cm <3.92cm Right Cavities Ventricle Atrium RV (apical 4): 5.1 cm <4.3 cm RA (apical 4): 5.5 cm <4.6 cm Findings/Conclusions Chambers LV Left ventricular systolic function is normal(regional wall motion and LVEF). Left ventricular hypertrophy is absent. The LV chamber size is normal. The left ventricular ejection fraction (LVEF) is70% +/- 5%by the biplane summation of discs (Gould's rule) method. LA The left atrial size is severely increased. The left atrial volume index is 79 mL/m2 (normal:<35 mL/m2, mild: 35-41 mL/m2, moderate: 42-48 mL/m2, severe: >48 mL/m2). RV The right ventricle is dilated. Right ventricular function is severely reduced. The percent area shortening is 20 (normal >35%). RA The right atrium is dilated. The dilatation is severe. The right atrial volume indexed to BSA is enlargedat 51 mL/m2 (normal for males <39 mL/m2, females <33 mL/m2). Valves AV A prosthetic aortic valve is present. It is atissue valve. Prosthetic valve peak gradient is 36 mmHg, mean gradient is 21 mmHg. This is suggestive of a moderately stenoticprosthesis depending on the size and type of [...] Quintero MD(Interpreting physician) on 09/04/2022 12:03 PM Jaziel Madsen DO [facility] NON-INVASIVE CARDIOVASCULAR Edited Result - Final * (ABNORMAL) FULL LIPID PROFILE (09/03/2022 8:41 PM EST) Cholesterol 163 <200 mg/dL 09/04/2022 5:06 AM EST [facility] Triglycerides 78 <151 mg/dL 09/04/2022 5:06 AM EST [facility] HDL Cholesterol 44(L) >54 mg/dL 2 5:06 AM EST [facility] LDL cholesterol 109 <111 mg/dL 2 5:06 AM EST [facility] Non-HDL Cholesterol 119 <130 mg/dL 09/04/2022 5:06 AM EST [facility] Chol/HDL Ratio 3.70 <5.00 09/04/2022 5:06 AM EST [facility] LDL/HDL Ratio 2.48 <3.57 09/04/2022 5:06 AM EST [facility] Blood BLOOD SPECIMEN / Unknown 09/03/2022 8:41 PM EST 09/03/2022 9:09 PM EST Jaziel Evtiamoses BARBER [facility] Final Result Performing Organization Address City/[facility]/ZIP Co de Phone Number [facility] [address] [place] [address] * (ABNORMAL) HEMOGLOBIN A1C (09/03/2022 8:41 PM EST) Hemoglobin A1c 7.4(H) 4.0 - 5.6 % 09/04/2022 3:13 PM EST [facility] Estimated Avg Glucose 166 mg/dL 09/04/2022 3:13 PM EST [facility] Blood BLOOD SPECIMEN / Unknown 09/03/2022 8:41 PM EST 09/03/2022 9:32 PM EST Jaziel Madsen DO 98 [facility] Final Result Performing Organization Address City/[facility] de Phone Number [facility] [address] from Last 3 Months or Most Recently Relevant to Health Maintenance Insurance MEDICARE Advance Directives * DNR Comfort Care Arrest- Do Not Intubate (Latest Code Status on File) Date Activated Date Inactivated Comments 09/04/2022 4:20 AM 09/05/2022 4:40 PM Protocol i s activated when the patient experiences cardiac or respiratory arrest. (All necessary treatments and interventions can be initiated prior to arrest.) Question Answer Comments Documentation of decision pr ocess for this code status: Discussed with patient or surrogate. This is the code status chosen by the patient/surrogate. * Full Code Date Activated Date Inactivated Comments 09/04/2022 2:57 AM 09/04/2022 4:20 AM Question Answer Comments Documentation of decision pr ocess for this code status: Patient and surrogate unable or unavailable to discuss. There is no previous documentation of code status. Defaulting to Full Code Care Teams Mud Mill Tender Relationship Specialty Start Date End Date Marlen Wilkerson MD [address] [place], [place] [phone] PCP - General Family Medicine 09/05/22
--- OUTSIDE RECORDS SUMMARY | 2025-06-01 09:51 | XMS_ITS | Clinical Summary ---
[id number] [address] [place] [address] Care Team Providers Care Hat Liner Name Role Phone Unavailable Primary Care Provider Unavailabl e Social History Tobacco Use Types Packs/Day Years Used Date Smoking Tobacco: Never Assessed Comments Unknown Sex and Gender Information Value Date Recorded Sex Assigned at Not on file Legal Sex Female 9:10 AM EST Gender Identity Not on file Sexual Orientation Not on file Plan of Treatment Health Maintenance Due Date Last Done Comments Depression Screening 1947 Tobacco Screening 1947 DTaP,Tdap and Td Vaccines (1 - Tdap) 1955 Zoster (Shingles) Vaccine (1 of 2) 1986 Fall Risk Screening 2001 COVID-19 Vaccine (2024-2 6 season) 2025 07/12/2021, 12/20/2020, 11/21/2020 Influenza Vaccine 05/21/2025 05/28/2021, , 05/31/2018, Additional history exists Medical Devices Not on file Insurance MEDICARE [facility]
--- NOTE | 2025-06-01 10:00 | CA_ITS ---
Patient Name: JUDIE JOHNSON MR#: [id number] : 1935 Exam Date: 06/01/2025 Ordering Doctor: DR TANISHA JOVEL M.D. ECHOCARDIOGRAM REPORT PROCEDURE: CA ECHO DOPPLER COMPLETE INDICATIONS: Pulmonary hypertension, CKD COMPARISON: None. DESCRIPTION: COMPLETE ECHOCARDIOGRAM Real-time transthoracic echocardiography with 2D, M-mode, spectral and color flow Doppler performed. QUALITY: Technical quality was good. LEFT VENTRICLE: Normal chamber size. Mild concentric left ventricular hypertrophy. Global left ventricular systolic function is normal. Calculated left ventricular ejection fraction is 61%. LV EF: DIASTOLIC: Unable to evaluate left ventricle diastolic function due to severe mitral annulus calcification and mitral stenosis ATRIAL SEPTUM: Visually appears intact LEFT ATRIUM: Severe dilatation. RIGHT ATRIUM: Moderate dilatation. RIGHT VENTRICLE: Mild dilatation. Decreased right ventricular systolic function. TRICUSPID VALVE: Normal mobility and thickness. No stenosis with moderate to severe regurgitation. Severe pulmonary hypertension. RVSP 85mmHg. MITRAL VALVE: Severely thickened with decreased mobility. Severe mitral valve stenosis, Vmax 3.3m/s, MVA 0.5cm2, PHT 235, mean gradient 16mmHg. Severe mitral annular calcification. Moderate mitral regurgitation. AORTIC VALVE: Bio-Prosthetic valve appears well seated in the aortic position with normal doppler flow. DVI 0.38, Vmax 2.4m/s, mean gradient 15mmHg.No aortic regurgitation. AORTIC ROOT: Normal diameter and appearance. PULMONIC VALVE: Normal thickness and mobility. No stenosis. Moderate regurgitation. PERICARDIUM: No evidence of pericardial effusion. IVC: Collapes with inspirations. Normal size. 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, well-seated with normal Doppler flow and no valvular or perivalvular regurgitation, mean pressure gradient 15 mmHg Moderate to severe tricuspid regurgitation Moderate pulmonary insufficiency Adult Echocardiography Procedure Report Left Ventricle LVEDD (3.7 - 5.6 cm): 4.48 cm LVESD (2.2 - 4.0 cm): 2.45 cm LVIVS thickness (0.6 - 1.2 cm): 1.05 cm LVPW thickness (0.5 - 1.0 cm): 0.94 cm e': 0.05 m/s E - e': LVOT Max Gradient: 3.96 mm[Hg], 3.83 mm[Hg] LVOT Area (cm2): 0.99 m/s Peak Velocity (LVOT): 0.99 m/s, 0.98 m/s Mean Velocity (LVOT): 0.73 m/s LVOT Diameter 1.72 cm Left Ventricular Ejection Fraction: 60.61 % Left Atrium LA Volume Index (2D A2C): 71.44 ml/m2 Left Atrium Systolic Dimension: 5.27 cm Mitral Valve MV E to A Ratio: MV Max Gradient: MV Mean Gradient: Mitral Valve A-Wave Peak Velocity: Mitral Valve E-Wave Peak Velocity: Cardiovascular Orifice Area: Right Ventricle RV Internal Diastolic Dimension: 3.96 cm Aorta AO Root Diam: 2.91 cm Ascending Ao Diam: 3.32 cm Aortic Valve AoV Area (Peak Christian): 0.86 cm2, 0.87 cm2, 0.83 cm2 AoV Area (VTI): 0.94 cm2, 0.96 cm2, 0.87 cm2 Deceleration Grundy: Pressure Half-Time: Peak Velocity(Antegrade Flow): 2.64 m/s, 2.74 m/s, 2.55 m/s, 2.55 m/s, 2.77 m/s Peak Gradient(Antegrade Flow): 27.90 mm[Hg], 29.98 mm[Hg], 25.97 mm[Hg], 25.97 mm[Hg], 30.74 mm[Hg] Mean Velocity(Antegrade Flow): 1.86 m/s, 1.87 m/s, 1.90 m/s, 1.85 m/s, 1.61 m/s Mean Gradient(Antegrade Flow): 15.47 mm[Hg], 16.28 mm[Hg], 15.75 mm[Hg], 15.24 mm[Hg], 13.44 mm[Hg] Velocity Time Integral: 66.44 cm, 70.82 cm, 63.33 cm, 63.39 cm, 69.86 cm Tricuspid Valve Peak Velocity (Regurgitant Flow): 4.06 m/s, 3.92 m/s, 4.52 m/s Peak Velocity: Pulmonic Valve Mean Gradient: Mean Velocity: Peak Velocity: 0.91 m/s Peak Gradient: 3.11 mm[Hg], 3.57 mm[Hg] Right Atrium Right Atrium Systolic Pressure: 112.85 ml, 112.85 ml Dictated by: Willie Hays MD on 06/01/2025 at 19:10 Approved by: Willie Hays MD on 06/01/2025 at 19:24
--- OUTSIDE RECORDS SUMMARY | 2025-06-01 10:06 | XMS_ITS | CCD ---
Author Organization [facility] Care Team Providers Care Tomato Paste Maker Name Role Phone Flower Garza Unavailable JAZMINE [...] Referring Unavailable HELMS, YOKO Primary Care Unavailable HELMS, YOKO Referring Unavailable MOUKARBEL, TANISHA V Admitting Unavailable MOUKARBEL, TANISHA Garcia Attending Unavailable SCOOTER, YOKO Primary Care Unavailable SCOOTER, YOKO Referring Unavailable MOUKARBEL, TANISHA V Admitting Unavailable MOUKARBEL, TANISHA Garcia Attending Unavailable SCOOTER, YOKO Primary Care Unavailable DAVEY CARRASCO Admitting Unavailable DAVEY CARRASCO Attending Unavailable SCOOTER, YOKO Referring Unavailable Helms Yoko WEST Primary Care Provider Yoko Helms MD Primary Care Provider DO Brad Harper Emergency Provider MD Yoko Helms Primary Care Provider DO Donn Joseph Admit Provider DO Donn Joseph Attending Provider Maria C Pelayo Other Provider Unavailable DO Petty Crandall Other Provider MD Андрей Marsh Other Provider DO Oscar Ward Other Provider Jamison, ANP- Jodi Other Provider DO Gigi Hernandez Other Provider HEMANT You Other Provider [phone] MILES Atkinson Other Provider YOKO HELMS Primary Care Unavailable OSIEL KAVEH Referring Unavailable PROVIDER, UNKNOWN Attending Unavailable [...] Unavailable HELMS, YOKO Primary Care Unavailable ATASSVa, BROOK Admitting Unavailable STARKEY, JUAN Attending Unavailable REQUEST, IP PHYSICAL THERAPY SERVICE Consulting Unavailable REQUEST, IP OCCUPATIONAL THERAPY SERVICE Consult ing Unavailable HELMS, YOKO Primary Care Unavailable OSIEL, KAVEH Referring Unavailable PROVIDER, UNKNOWN Attending Unavailable PROVIDER, UNKNOWN Admitting Unavailable HelmsYoko Unavailable Asad Pollard Unavailable DO Brad Harper Emergency Provider Unavailab MD Yoko Beth Primary Care Provider DO Donn Joseph Admit Provider DO Donn Joseph Attending Provider Maria C Pelayo Other Provider Unavailable DO Petty Crandall Other Provider MD Андрей Marsh Other Provider DO Oscar Ward Other Provider YARY Swift- Jodi Other Provider DO Gigi Hernandez Other Provider HEMANT You Other Provider [phone] MILES Atkinson Other Provider DO Asad Pollard Attending Provider MISC, DR MCDONALD Attending Unavailable MISC, DR [...] Care Unavailable REINECK, DR JOHANNY Herbert Consulting Unavailkvng e NADERER, DR MARELY Valdivia Attending Unavailable GRANTVILLE, DR OJBY Garcia Consulting Unavailable NADERER, DR MARELY Valdivia Consulting Unavailable CRISTA, RANDY Consulting Unavailable KLIPPER, JOBY Consulting Unavailable JAY ., LISSA Consulting Unavailable HAY ., DR LINN Attending Unavailable HAY ., DR LINN Admitting Unavailable HELMS, DR YOKO Ceron Primary Care Unavailable HAY ., DR LINN Consulting Unavailable ASHVIN, АНДРЕЙ Consulting Unavailable SCHRERUBY, BLAS Consulting Unavailable NEFCY, CLIFFORD Consulting Unavailable MILTON, DONN Consulting Unavailable [...] HELMS, DR YOKO Ceron Primary Care Unavailable MED, DR GARAY Consulting Unavailable MED, DR GARAY Attending Unavailable MED, DR GARAY Admitting Unavailable MED, TANISHA Attending Unavailable BRETT HEWITT Attending Unavailable MED, TANISHA Attending Unavailable MED, TANISHA Attending Unavailable Yoko Helms MD Primary Care Provider Yoko Helms MD Attending Provider [phone] Maurisio Leon MD Attending Provider [phone] Yoko Helms Primary Care Unavailable Maurisio Leon Attending Unavailable Maurisio Leon Admitting Unavailable Allergies Allergy Classification Reported Allergen(s) Allergy Type Date of Onset Reaction(s) Facility (18 sources) Acetaminophen / HYDROcodone Drug Allergy Unknown Crocs [facility] [employer] Other (20 sources) hydroquinone; Translations: [HYDROQUINONE] Drug Allergy Unknown, Unknown Reaction [facility] (20 sources) Sulfamethoxazole / Trimethoprim Drug Allergy [employer] Other (1 source) Acetaminophen / HYDROcodone Drug Allergy [facility] Repository (13 sources) Codeine; Translations: [CODEINE] Drug Allergy [facility] Repository (9 sources) Hydroxychloroquine; Translations: [HYDROXYCHLOROQUINE] [facility] Rep[facility] Comment on above: Onset Date: 03/25/20 18 (2 sources) Sulfamethoxazole / Trimethoprim Drug Allergy [facility] Repository (6 sources) Acetaminophen / HYDROcodone; Translations: [HYDROCODONE-ACETAMIN OPHEN] Drug Allergy [facility] (4 sources) Codeine Drug Allergy [facility] Work Phone: (14 sources) HYDROcodone; Translations: [HYDROCODONE] Drug Allergy [facility] Comment on above: Onset Date: 03/25/20 18 (4 sources) hydroquinone Drug Allergy Rash [facility] (10 sources) Hydroxychloroquine Drug Allergy 018 Nausea [employer] [facility] (11 sources) Acetaminophen; Translations: [ACETAMINOPHEN] Drug Allergy Unknown Reaction [facility] Comment on above: Onset Date: 03/25/20 18 (11 sources) Sulfamethoxazole; Translations: [SULFAMETHOXAZOLE] Drug Allergy Unknown Reaction [facility] (11 sources) Trimethoprim; Translations: [TRIMETHOPRIM] Drug Allergy Unknown Reaction [facility] (1 source) SULFAMETHOXAZOLE W-TRIMETHOPRIM; Translations: [SULFAMETHOXAZOLE W-TRIMETHOPRIM] Propensity to adverse reactions to drug (disorder) [facility] Repository (1 source) Acetaminophen Drug Allergy [facility] Repository (1 source) Acetaminophen / HYDROcodone Drug Allergy [facility] Repository (1 source) Carbidopa Drug Allergy [facility] Repository (1 source) HYDROcodone Drug Allergy [facility] Repository (2 sources) Sulfamethoxazole / Trimethoprim; Translations: [SULFAMETHOXAZOLE-TRI METHOPRIM] Drug Allergy [facility] Repository (6 sources) Codeine Drug Allergy Unknown [employer] Other (6 sources) Lortab *ANALGESICS - OPIOID* Propensity to adverse reactions Unknown [employer] Other (1 source) Codeine Drug Allergy [facility] Repository (1 source) HYDROcodone Drug Allergy [facility] Repository (1 source) hydroquinone Drug Allergy [facility] Repository (1 source) Hydroxychloroquine Drug Allergy [facility] Repository Medications Current Medications Medication Drug Class(es) Dates [...] 8 hrs for 7 days Mar, Active Aspir-81 (20 sources) Aspir-81 Active aspirin 81 mg delayed release oral tablet (14 sources) Platelet Aggregation Inhibitor, Nonsteroidal Anti-inflammatory Drug Start: 09-19-2022 take 1 tablet by mouth once daily Start: 07-27-2022 aspirin EC 81 MG tablet Take 81 mg by mouth. 0 07/27/2022 Active cephalexin 500 mg oral capsule (2 sources) Cephalosporin Antibacterial take 1 capsule by mouth every six hours Cephalexin 500 MG 1 capsule Orally Four times a day Active ciprofloxacin 3 mg/ml ophthalmic solution (3 sources) Quinolone Antimicrobial Start: 03-29-20 25 clopidogrel 75 mg oral tablet (20 sources) P2Y12 Platelet Inhibitor take 1 tablet by mouth every twenty-four hours Clopidogrel Bisulfate 75 MG 1 tablet Orally Once a day Active dapagliflozin 10 mg oral tablet (5 sources) Sodium-Glucose Cotransporter 2 Inhibitor Start: 07-24-20 24 take 1 tablet by mouth once daily take 1 tablet by chapincito th every twenty-four hours Farxiga 10 MG 1 tablet once a day Active dextrose 10 % iv infusion (1 source) Start: 09-04-2022 dextrose 10 % iv infusion furosemide 20 mg oral tablet (20 sources) Loop Diuretic Start: 05-01-2025 take 2 tablets by mouth three times daily Start: 11-27-2024 End: 05-01-2025 take 1 tablet by mouth three times daily Furosemide 20 mg tablet Discontinued 20 MG PO Three times daily November 27, 2024 1:30pm May 01, 2025 8:41am Start: 07-24-2024 End: 11-27-2024 take 1 tablet by mouth once daily Furosemide 20 mg tablet Discontinued 20 MG PO Daily July 24, 2024 2:26pm November 27, 2024 1:31pm Start: 09-19-2022 End: 07-24-2024 take 2 tablets by mouth once daily Furosemide 20 mg tablet Discontinued 40 MG PO Daily September 19, 2022 1:00am July 24, 2024 2:26pm Start: 09-19-2022 take 40 mg by mouth once daily Furosemide Active 40 MG PO Daily September 19, 2022 12:00am Start: 09-04-2022 End: 09-04-2022 furosemide (LASIX) 10 [...] Injection 3-4x/day for 90 days January, Active 3 ml insulin glargine 100 un t/ml pen injector (20 sources) Insulin Analog Start: 03-20-2025 Start: 11-27-2024 End: 11-29-2024 Insulin Glargine U-300 Conc 300 unit/mL (1.5 mL) insulin pen Discontinued 35 UNIT SUBCUT Daily November 27, 2024 12:00am November 29, 2024 12:57pm Start: 03-10-2024 End: 11-27-2024 Insulin Glargine (Lantus Hina ostar U-100 Insulin) 100 unit/mL (3 mL) insulin pen Discontinued 0 .ROUTE .COMPLEX November 15, 2024 9:15am November 27, 2024 1:11pm INJECT 35 UNITS SUBCUTANEOUSLY ONCE A DAY Start: 01-26-2023 Basaglar KwikP en 100 UNIT/ML [...] Active Meclizine (2 sources) Antiemetic Meclizine HCl Active 24 hr metoprolol succinate 25 mg extended release oral tablet (20 sources) beta-Adrenergic Emanuel Start: 07-11-2022 take 1 tablet by mouth once daily potassium chloride 20 meq extended release oral tablet (20 sources) Start: 09-19-2022 take 1 tablet by mouth once daily Start: 09-02-2022 End: 09-05-2022 Potassium Chloride ER 20 MEQ TBCR take 1 tablet by chapincito th once daily Klor-Con M20 20 MEQ TAKE 1 TABLET BY MOUTH EVERY DAY for 30 Active Potassium Chlori de ER Active sildenafil 20 mg oral tablet (5 sources) Phosphodiesterase 5 Inhibitor Start: 07-24-2024 take 1 tablet by mouth three times daily take 1 tablet by mouth every eig ht hours Sildenafil Citrate 20 MG 1 tablet 3 times a day Active sodium bicarb (4 sources) sodium bicarb Ac tive valsartan (2 sources) Angiotensin 2 Receptor Emanuel V alsartan Active Completed/Discontinued Medications Medication Drug Class(es) Dates Sig (Normalized) Sig (Original) amLODIPine 10 mg oral tablet (20 sources) Dihydropyridine Calcium Channel Emanuel Start: 09-19-2022 End: 07-24-2024 take 1 tablet by mouth once daily Amlodipine 10 mg Tablet Discontinued 10 MG PO Daily September 19, 2022 1:00am July 24, 2024 2:24pm take 1 tablet by chapincito th every twenty-four hours amLODIPine Besylate 5 MG 1 tablet Orally Once a day Active calcium chloride 0.0014 meq/ ml / potassium chloride 0.004 meq/ml / sodium chloride 0.103 meq/ml / sodium lactate 0.028 meq/ml injectable solution (2 sources) Start: 09-05-2022 End: 09-05-2022 lactated ringers iv bolus Start: 09-04-2022 End: 09-04-2022 lactated ringers iv bolus fentaNYL Citrate PF SOSY 25 mcg (1 source) Start: 09-03-2022 End: 09-03-2022 fentaNYL Citrate PF SOSY 25 mcg 3 ml insulin degludec 100 unt/ml pen injector (6 sources) Insulin Analog Start: 12-01-2024 End: 03-20-2025 Insulin Degludec (Tresiba Flextouch U-100) 100 unit/mL (3 mL) insulin pen Discontinued 0 .ROUTE .COMPLEX January 08, 2025 2:06pm March 20, 2025 10:30am INJECT 35 UNITS SUBCUTANEOUSLY DAILY 3 ml insulin detemir 100 unt/ml pen injector (20 sources) Insulin Analog Start: 11-29-2024 End: 12-01-2024 inject 35 [IU] by subcutaneous injection once daily Insulin Detemir U-100 100 unit/mL (3 mL) insulin pen Discontinued 35 UNIT SUBCUT Daily November 29, 2024 12:00am December 01, 2024 10:49am Start: 01-04-2024 End: 11-27-2024 inject 30 [IU] by subcutaneous injection once daily Insulin Detemir U-100 (Levemir U-100 Insulin) 100 unit/mL solution Discontinued 30 UNIT SUBCUT Daily January 04, 2024 3:46pm November 27, 2024 1:11pm Start: 08-23-2022 End: 01-04-2024 inject 35 [IU] by subcutaneous injection once daily Insulin Detemir U-100 (Levemir U-100 Insulin) 100 unit/mL solution Discontinued 35 UNIT SUBCUT Daily September 19, 2022 1:00am January 04, 2024 3:51pm inject 35 [IU] by quinones bcutaneous injection once daily Levemir 100 UNIT/ML INJECT 35 UNITS SUBCUTANEOUSLY EVERY DAY for 30 Active iohexol (OMNIPAQUE) 350 MG/ML injection (1 source) [...] 1 tablet Orally Once a day Active sodium bicarbonate 650 mg oral tablet (20 sources) Start: 12-13-2023 End: 01-08-2025 take 1 tablet by mouth twice daily Sodium Bicarbonate 650 mg tablet Discontinued 0 .ROUTE .COMPLEX 180 June 22, 2024 8:41am January 08, 2025 2:07pm TAKE 1 TABLET BY MOUTH TWICE A DAY Start: 09-19-2022 End: 12-13-2023 take 2 tablets by mouth twice daily Sodium Bicarbonate 650 mg tablet Discontinued 1300 MG PO Twice daily September 19, 2022 1:00am December 13, 2023 4:38pm Start: 09-19-2022 End: 12-13-2023 take 1300 mg by mouth twice daily Sodium Bicarbonate Discontinued 1300 MG PO Twice daily September 19, 2022 12:00am December 13, 2023 3:38pm Start: 07-20-2022 take 2 tablets by mo uth twice daily sodium bicarbonate 650 MG tablet Take 1,300 mg by mouth 2 times daily. 0 07/20/2022 Active take 1 tablet by chapincito th twice daily Sodium Bicarbonate 650 MG TAKE 1 TABLET BY MOUTH TWICE A DAY for 90 Active Problems Active Problems Problem Classification Problem Date Documented Da te Episodic/Chronic Acquired foot deformities (10 sources) Foot-drop; Translations: [Foot drop, right foot] 09-23-2022 Episodic Comment on above: Problem List clean-u p per request of Phys. EHR Cmte Acute myocardial infarction (20 sources) Myocardial infarction; Translations: [Myocardial infarction type 2] Chronic Cardiac dysrhythmias (10 sources) Longstanding persistent atrial fibrillation; Translations: [Longstanding persistent atrial fibrillation] 03-29-2025 Chronic Cardiac dysrhythmias (1 source) Bradycardia; Translations: [Bradycardia, unspecified] Episodic Chronic kidney disease (20 sources) Chronic kidney disease stage 3; Translations: [CKD (chronic kidney disease) stage 3, GFR 30-59 ml/min] Onset: 09-18-2021 09-04-2022 Chronic Chronic kidney disease (7 sources) Chronic kidney disease; Translations: [CHRONIC KIDNEY DISEASE STAGE 3B] Onset: 07-27-2022 Congestive heart failure; nonhypertensive (17 sources) Acute on chronic diastolic heart failure; Translations: [Acute on chronic diastolic (congestive) heart failure] Onset: 09-18-2021 09-04-2022 Chronic Coronary atherosclerosis and other heart disease (20 sources) Coronary atherosclerosis; Translations: [Atherosclerotic heart disease of [place] coronary artery without angina pectoris] Onset: 10-06-2024 Chronic Deficiency and other anemia (20 sources) Anemia; Translations: [Anemia in chronic kidney disease] Chronic Deficiency and other anemia (20 sources) Anemia co-occurrent and due to chronic kidney disease stage 3; Translations: [Chronic kidney disease, stage 3b] Chronic Deficiency and other anemia (4 sources) Anemia in chronic kidney disease; Translations: [ANEMIA IN CHRONIC KIDNEY DISEASE] Onset: 11-22-2022 Chronic Deficiency and other anemia (4 sources) Anemia; Translations: [Anemia, unspecified] 05-01-2025 Episodic Deficiency and other anemia (1 source) Anemia, unspecified; Translations: [Anemia, unspecified] Onset: 05-10-2025 Episodic Delirium, dementia, and amnestic and other cognitive disorders (1 source) Unspecified dementia without behavioral disturbance; Translations: [UNSP KLAUDIA UNS SEV W/O DSTRB ANXTY] Onset: 10-07-2022 Chronic Diabetes mellitus with complications (20 sources) Insulin treated type 2 diabetes mellitus; Translations: [Type 2 diabetes mellitus with diabetic chronic kidney disease] Onset: 10-07-2022 Chronic Diabetes mellitus without complication (20 sources) Diabetes mellitus; Translations: [Type 2 diabetes mellitus without complications] Onset: 02-01-2019 09-04-2022 Chronic Comment on above: Problem List clean-u p per request of Phys. EHR Cmte E Codes: Fall (14 sources) Fall; Translations: [Unspecified fall, initial encounter] Onset: 09-06-2022 Episodic Comment on above: Problem List clean-u p per request of Phys. EHR Cmte Essential hypertension (20 sources) Hypertensive disorder; Translations: [Essential (primary) hypertension] Onset: 02-01-2019 09-04-2022 Chronic Fluid and electrolyte disorders (10 sources) Dehydration; Translations: [Hyperkalemia] Onset: 05-18-2022 Episodic Fracture of upper limb (20 sources) Other nondisplaced fracture of upper end of left humerus, subsequent encounter for fracture with routine healing; Translations: [Other displaced fracture of upper end of left humerus, subsequent encounter for fracture with nonunion] Onset: 06-10-2021 Resolved: 04-21-2022 Episodic Comment on above: Problem List clean-u p per request of Phys. EHR Cmte Heart valve disorders (20 sources) History of aortic valve replacement; Translations: [Presence of prosthetic heart valve] Onset: 02-01-2019 09-04-2022 Chronic Heart valve disorders (3 sources) Cardiac murmur, unspecified Episodic Hypertension with complications and secondary hypertension (6 sources) Hypertensive heart and chronic kidney disease with heart failure and stage 1 through stage 4 chronic kidney disease, or unspecified chronic kidney disease; Translations: [Hypertensive renal disease] Onset: 10-07-2022 05-01-2025 Chronic Inflammation; infection of eye (except that caused by tuberculosis or sexually transmitteddisease) (4 sources) Conjunctivitis of right eye; Translations: [Unspecified conjunctivitis] 03-29-2025 Episodic Osteoarthritis (20 sources) Osteoarthritis of joint of left hand; Translations: [Primary osteoarthritis, left hand] Chronic Other aftercare (20 sources) Long-term current use of insulin; Translations: [shelter (current) use of insulin] Episodic Other ear [...] caused by tuberculosis or sexually transmitted disease) (1 source) Hypertrophic cardiomyopathy; Translations: [Other hypertrophic cardiomyopathy] Chronic Pulmonary heart disease (2 sources) Pulmonary hypertension, unspecified; Translations: [Pulmonary hypertension, unspecified] Onset: 06-04-2023 Chronic Residual codes; unclassified (4 sources) Localized edema; Translations: [Localized edema] 05-01-2025 Episodic Residual codes; unclassified (1 source) Localized edema; Translations: [Localized edema] Onset: 05-10-2025 Episodic Syncope (6 sources) Syncope; Translations: [Syncope and collapse] Onset: 09-04-2022 09-04-2022 Episodic Unclassified (1 source) CONTACT W/AND (SUSP) EXPOS [...] condition; Translations: [NOSOCOMIAL CONDITION] Onset: 10-07-2022 Episodic Immunizations and screening for infectious disease (1 source) Encounter for immunization; Translations: [ENCOUNTER FOR IMMUNIZATION] Onset: 09-06-2022 Episodic Malaise and fatigue (1 source) Weakness; Translations: [WEAKNESS] Onset: 10-07-2022 Episodic Other aftercare (2 sources) shelter (current) use of insulin; Translations: [CUSTODIAL CURRENT USE OF INSULIN] Onset: 10-07-2022 Episodic Other aftercare (1 source) shelter (current) use of aspirin; Translations: [MAILING SECTION CLERK CURRENT USE OF ASPIRIN] Onset: 10-07-2022 Episodic Other aftercare (1 source) Other custodial (current) drug therapy; Translations: [OTH MAILING SECTION CLERK CURRENT DRUG THERAPY] Onset: 10-07-2022 Episodic Other aftercare (1 source) Encounter for palliative care; Translations: [ENCOUNTER FOR PALLIATIVE CARE] Onset: 10-07-2022 Episodic Other connective tissue disease (4 sources) Other specified soft tissue disorders; Translations: [OTHER SPEC SOFT TISSUE DISORDERS] Onset: 05-20-2022 Episodic Other injuries and conditions due to external causes (1 source) History of falling; Translations: [HISTORY OF FALLING] Onset: 10-07-2022 Episodic Other injuries and conditions due to external causes (3 sources) Unspecified injury of face, initial encounter; Translations: [UNSPECIFIED INJURY FACE INITIAL ENC] Onset: 09-03-2022 Episodic Other non-traumatic joint disorders (1 source) [...] Test Name Value Interpretation Reference Range Facility US renal BIon 05-10-2025 US renal BI [facility] [place] [address] [place] [address] Ultrasound Report Signed Patient: Eliz Hewitt MR#: [id number] : 1935 Acct:[id number] Age/Sex: 89 / F ADM Date: 05/10/25 Loc: Room: Type: [facility] Attending Dr: Maurisio Leon MD Ordering Provider: Maurisio Leon MD Date of Service: 05/10/25 US/US renal BI: D64.9 - Anemia, unspecified Copies to: Maurisio Leon MD Bilateral Renal Ultrasound HISTORY: Anemia. Chronic kidney disease stage IV COMPARISON: None RIGHT kidney measures 7.7 cm. LEFT kidney measures 8.8 cm. Hydronephrosis: None RENAL STONE: No shadowing renal calculus is seen. RENAL LESIONS: Bilateral renal cyst URINARY BLADDER: Unremarkable REPRODUCTIVE STRUCTURES Not assessed US/US renal BI IMPRESSION : No hydronephrosis. Impression dictated by: Jeremy Murray M.D. 05/10/2025 7:50 PM Dictation Location[facility] Tech: Shantel Urias Transcribed By: [facility] 05/10/251949 Dictated By: Jeremy Murray DO 05/10/251949 Signed By: 05/10/251949 Normal [facility] Office Vis[place] 01-05-2025 Follow-up visit [id number] Eliz Hewitt 1935 F Date Provider Department Center 01/05/2025 TANISHA MORELOS ANGEL Bernstein Family History Problem Relation Age of Onset Diabetes Mother Emphysema Father Family Status - Relation Status Age at Mother Father Level of Service:02015 PA OFFICE/OUTPATIENT ESTABLISHED MOD MDM 30 MIN Normal [facility] Office Visiton 10-06-2024 Follow-up visit [id number] Eliz Hewitt 1935 F Date Provider Department Center 10/06/2024 TANISHA MORELOS ANGEL Bernstein Family History Family history unknown: Yes Level of Service:54829 PA OFFICE/OUTPATIENT ESTABLISHED MOD MDM 30 MIN Normal [facility] Office [place] 08-30-2024 Follow-up visit [id number] Eliz Hewitt 1935 F Date Provider Department Center 08/30/2024 BRETT LONG ANGEL Bernstein Family History Family history unknown: Yes Level of Service:37941 PA OFFICE/OUTPATIENT ESTABLISHED MOD MDM 30 MIN Reason for Visit and Comments: Congestive Heart Failure [127] Normal [facility] Basophils Auto (Bld) [#/Vol] on 07-17-2024 Basophils (Bld) [#/Vol] 0.1 10 3/uL 0.0-0.1 [facility] Basophils/100 WBC Auto (Bld) on 07-17-2024 Basophils/100 WBC (Bld) 0.9 % 0.2-2.0 [facility] Eosinophils/100 WBC Auto (Bl d)on 07-17-2024 Eosinophils/100 WBC (Bld) 9.6 % High 0.9-7.0 [facility] Erythrocyte distribution wid th Auto (RBC) [Ratio]on 07-17-2024 Erythrocyte distribution width (RBC) [Ratio] 13.9 % 11.0-15.0 [facility] Estimated glomerular filtrat ion rate (GFR) non- Americanon 07-17-2024 GFR/1.73 sq M.predicted among non-blacks MDRD (S/P/Bld) [Vol rate/Area] 19 mL/min/{1.73_m2} Low >=60 mL/min/1.73m 2 [facility] Glucose mean value [Mass/vol ume] in Blood Estimated from glycated hemoglobinon 07-17-2024 Average glucose Estimated from glycated hemoglobin (Bld) [Mass/Vol] 111 mg/dL [facility] Hematocrit Auto (Bld) [Volum e fraction]on 07-17-2024 Hematocrit (Bld) [Volume fraction] 34.3 % Low 36.0-48.0 [facility] Hemoglobin [Mass/volume] in Bloodon 07-17-2024 Hemoglobin (Bld) [Mass/Vol] 10.7 g/dL Low 12.0-16.0 [facility] Laboratory - Chemistry and C hemistry - challengeon 07-17-2024 Calcium [Mass/Vol] 8.4 mg/dL Low 8.5-10.1 [facility] Chloride [Moles/Vol] 108 mmol/L High 98-107 [facility] CO2 [Moles/Vol] 28.7 mmol/L 21.0-32.0 [facility] Creatinine [Mass/Vol] 2.36 mg/dL High 0.55-1.02 [facility] GFR/1.73 sq M.predicted MDRD (S/P/Bld) [Vol rate/Area] 24 mL/min/{1.73_m2} Low >=60 mL/min/1.73m 2 [facility] Glucose [Mass/Vol] 102 mg/dL 74-106 [facility] Potassium [Moles/Vol] 4.6 mmol/L 3.5-5.1 [facility] Sodium [Moles/Vol] 145 mmol/L 136-145 [facility] Urea nitrogen [Mass/Vol] 58.0 mg/dL High 7.0-18.0 [facility] Urea nitrogen/Creatinine [Mass ratio] 24.6 mg/mg [facility] Laboratory - Hematology and Cell countson 07-17-2024 HbA1c (Bld) [Mass fraction] 5.5 % 4.5-6.2 [facility] Comment on above: ADA RECOMMENDED LIMI T 4.0 - 6.0ADA THERAPEUTIC TARGET < 7.0ACTION SUGGESTED> 7.0 Immature granulocytes/100 WBC (Bld) 0.5 % 0.0-0.5 [facility] Leukocytes [#/volume] correc fern for nucleated erythrocytes in Blood by Automated counon 07-17-2024 WBC corrected for nucl RBC Auto (Bld) [#/Vol] 6.4 10 3/uL 4.0-11.0 [facility] Lymphocytes Auto (Bld) [#/Vo l]on 07-17-2024 Lymphocytes (Bld) [#/Vol] 1.2 10 3/uL 1.2-3.8 [facility] Lymphocytes/100 WBC Auto (Bl d)on 07-17-2024 Lymphocytes/100 WBC (Bld) 18.5 % Low 20.5-60.0 [facility] MCH Auto (RBC) [Entitic mass ]on 07-17-2024 MCH (RBC) [Entitic mass] 29.2 pg 26.7-34.0 [facility] MCHC Auto (RBC) [Mass/Vol]on 07-17-2024 MCHC (RBC) [Mass/Vol] 31.2 g/dL 29.9-35.2 [facility] MCV Auto (RBC) [Entitic vol] on 07-17-2024 MCV (RBC) [Entitic vol] 93.5 fL 81.0-99.0 [facility] Monocytes Auto (Bld) [#/Vol] on 07-17-2024 Monocytes (Bld) [#/Vol] 0.6 10 3/uL 0.3-0.8 [facility] Monocytes/100 WBC Auto (Bld) on 07-17-2024 Monocytes/100 WBC (Bld) 10.0 % 1.7-12.0 [facility] Neutrophils Auto (Bld) [#/Vo l]on 07-17-2024 Neutrophils (Bld) [#/Vol] 3.9 10 3/uL 1.4-6.5 [facility] Neutrophils/100 WBC Auto (Bl d)on 07-17-2024 Neutrophils/100 WBC (Bld) 60.5 % 43.0-75.0 [facility] No Panel Informationon 07-17 Eosinophils # (Auto) 0.6 10 3/uL 0.0-0.7 [facility] Immature Granulocyte # (Auto) 0.03 10 3/uL 0.00-0.03 [facility] Platelet mean volume Auto (B ld) [Entitic vol]on 07-17-2024 Platelet mean volume (Bld) [Entitic vol] 9.4 fL Low 9.5-13.5 [facility] Platelets Auto (Bld) [#/Vol] on 07-17-2024 Platelets (Bld) [#/Vol] 217 10 3/uL 150-450 [facility] RBC Auto (Bld) [#/Vol]on RBC (Bld) [#/Vol] 3.67 10 6/uL Low 4.20-5.40 [facility] Serum or plasma anion gap de terminationon 07-17-2024 Anion gap [Moles/Vol] 12.9 mmol/L [facility] Estimated glomerular filtrat ion rate (GFR) non- Americanon 04-05-2024 GFR/1.73 sq M.predicted among non-blacks MDRD (S/P/Bld) [Vol rate/Area] 24 mL/min/{1.73_m2} Low >=60 [facility] Laboratory - Chemistry and C hemistry - challengeon 04-05-2024 Calcium [Mass/Vol] 8.6 mg/dL 8.5-10.1 [facility] Chloride [Moles/Vol] 102 mmol/L 98-107 [facility] CO2 [Moles/Vol] 25.4 mmol/L 21.0-32.0 [facility] Creatinine [Mass/Vol] 1.96 mg/dL High 0.55-1.02 [facility] GFR/1.73 sq M.predicted MDRD (S/P/Bld) [Vol rate/Area] 29 mL/min/{1.73_m2} Low >=60 [facility] Glucose [Mass/Vol] 177 mg/dL High 74-106 [facility] Potassium [Moles/Vol] 4.6 mmol/L 3.5-5.1 [facility] Sodium [Moles/Vol] 138 mmol/L 136-145 [facility] Urea nitrogen [Mass/Vol] 64.0 mg/dL High 7.0-18.0 [facility] Urea nitrogen/Creatinine [Mass ratio] 32.7 mg/mg [facility] Serum or plasma anion gap de terminationon 04-05-2024 Anion gap [Moles/Vol] 15.2 mmol/L [facility] Office Visiton 03-03-2024 Follow-up visit [id number] Eliz Hewitt 1935 F Date Provider Department Center 03/03/2024 TANISHA MORELOS CARD [facility] Family History Family history unknown: Yes Level of Service:65767 PA OFFICE/OUTPATIENT ESTABLISHED MOD MDM 30 MIN Normal [facility] Estimated glomerular filtrat ion rate (GFR) non- Americanon 12-01-2023 GFR/1.73 sq M.predicted among non-blacks MDRD (S/P/Bld) [Vol rate/Area] 25 mL/min/{1.73_m2} >=60 [facility] Laboratory - Chemistry and C hemistry - challengeon 12-01-2023 Calcium [Mass/Vol] 9.0 mg/dL 8.5-10.1 [facility] Chloride [Moles/Vol] 101 mmol/L 98-107 [facility] CO2 [Moles/Vol] 25.7 mmol/L 21.0-32.0 [facility] Creatinine [Mass/Vol] 1.92 mg/dL 0.55-1.02 [facility] GFR/1.73 sq M.predicted MDRD (S/P/Bld) [Vol rate/Area] 30 mL/min/{1.73_m2} >=60 [facility] Glucose [Mass/Vol] 80 mg/dL 74-106 [facility] Potassium [Moles/Vol] 4.2 mmol/L 3.5-5.1 [facility] Sodium [Moles/Vol] 138 mmol/L 136-145 [facility] Urea nitrogen [Mass/Vol] 45.0 mg/dL 7.0-18.0 [facility] Urea nitrogen/Creatinine [Mass ratio] 23.4 mg/mg [facility] Serum or plasma anion gap de terminationon 12-01-2023 Anion gap [Moles/Vol] 15.5 mmol/L [facility] ECHOCARDIO M/2D COMPLETEon 0 01-14-2023 ECHOCARDIO M/2D COMPLETE Patient: ELIZ HEWITT Exam Date: 01/14/2023 : 1935 Gender:F Ordering : DR TANISHA ARELLANO M.D. Admission #: [id number] Family : DR YOKO HELMS M.D. Order #: [id number] CLICK HERE TO VIEW EXAM ECHOCARDIOGRAM REPORT [...] 3.17 cm Aortic Valve AoV Area (Peak Christian): 0.37 cm2, 0.37 cm2 AoV Area (VTI): [...] Albina Brower M.D. on 01/14/2023 at 15:23 [place] XR hand LT min 3V*on 023 XR hand LT min 3V* [facility] [employer] Other XR hand LT min 3V* [facility] [employer] Other XR hand LT min 3V* [address] [facility] [employer] Other XR hand LT min 3V* MINDI Gonzalez [id number] [employer] Other XR hand LT min 3V* XRay Report [employer] Other XR hand LT min 3V* Signed [employer] Other XR hand LT min 3V* Patient: Eliz Hewitt MR#: [id number] [employer] Other XR hand LT min 3V* 5804 [employer] Other XR hand LT min 3V* : 1935 Acct:[id number] [employer] Other XR hand LT min 3V* Age/Sex: 87 / F ADM Date: 11/30/22 [employer] Other XR hand LT min 3V* Loc: SOX Room: Type: [facility] [employer] Other XR hand LT min 3V* Attending Dr: Asad Pollard DO [employer] Other XR hand LT min 3V* Copies to: Asad Pollard DO [employer] Other XR hand LT min 3V* Ordering Provider: sAad Pollard DO [employer] Other XR hand LT min 3V* Date of Service: 11/30/22 [employer] Other XR hand LT min 3V* XR/XR hand LT min 3V*: Closed displaced fracture of neck of fourth [employer] Other XR hand LT min 3V* metacarpal bone N [email or web address] Other XR hand LT min 3V* LEFT HAND - 3 views [employer] Other XR hand LT min 3V* REASON FOR EXAM: Follow-up closed displaced fracture of the neck of the fourth metacarpal bone of [employer] Other XR hand LT min 3V* the left hand. No rt [employer] Other XR hand LT min 3V* COMPARISON: Left hand 10/26/2022. [employer] Other XR hand LT min 3V* FINDINGS: [employer] Other XR hand LT min 3V* Bones are grossly demineralized. Fourth metacarpal fracture is grossly unchanged in alignment with [employer] Other XR hand LT min 3V* minimal healing response since the prior study. No significant change in the base of the proximal [employer] Other XR hand LT min 3V* phalanx of the second digit fracture. Degenerative changes are noted, worse at the CMC joint of the [employer] Other XR hand LT min 3V* thumb. [employer] Other XR hand LT min 3V* XR/XR hand LT min 3V* [employer] Other XR hand LT min 3V* IMPRESSION: [employer] Other XR hand LT min 3V* NO SIGNIFICANT CHANGE IN FOURTH METACARPAL OR PROXIMAL PHALANX SECOND DIGIT FRACTURE FINDINGS. [employer] Other XR hand LT min 3V* Impression dictated by: Randy Vickers Jr., D.OArpit11/30/2022 4:04 PM [employer] Other XR hand LT min 3V* Dictation Location: [place] [address] [employer] Other XR hand LT min 3V* Transcribed By: YOU 11/30/22 1604 [employer] Other XR hand LT min 3V* Dictated By: Randy Vickers Jr, DO 11/30/22 1602 [facility] [employer] Other XR hand LT min 3V* Signed By: [employer] Other XR hand LT min 3V* 11/30/22 1604 [facility] [employer] Other CBC AUTO DIFFon 11-18-2022 BASO # 0.0 103/ul Normal 0.0-0.1 [facility] Comment on above: Performed By: #### C BC #### [facility] [address] [place] [address] Dr. Adan Rinaldi Basophils/100 WBC (Bld) 0.7 % Normal 0.2-2.0 [facility] Comment on above: Performed By: #### C BC #### [facility] [address] [address] [address] Adan Rinaldi EO # 0.3 103/ul Normal 0.0-0.7 [facility] Comment on above: Performed By: #### C BC #### [facility] [address] [address] [address] Adan Rinaldi Eosinophils/100 WBC (Bld) 5.7 % Normal 0.9-7.0 [facility] Comment on above: Performed By: #### C BC #### [facility] [address] [address] [address] Adan Rinaldi Erythrocyte distribution width (RBC) [Ratio] 15.4 % Critically high 11.0-15.0 [facility] Comment on above: Performed By: #### C BC #### [facility] [address] [place] [address] Dr. Adan Rinaldi Hematocrit (Bld) [Volume fraction] 30.2 % Critically low 36.0-48.0 [facility] Comment on above: Performed By: #### C BC #### [facility] [address] [place] [address] Dr. Adan Rinaldi Hemoglobin (Bld) [Mass/Vol] 9.8 g/dL Critically low 12.0-16.0 [facility] Comment on above: Performed By: #### C BC #### [facility] [address] [place] [address] Dr. Adan Rinaldi IG # 0.01 10e3/ul Normal 0.00-0.03 [facility] Comment on above: Performed By: #### C BC #### [facility] [address] [place] [address] Dr. Adan Rinaldi IG % 0.2 % Normal 0.0-0.5 [facility] Comment on above: Performed By: #### C BC #### [facility] [address] [place] [address] Dr. Adan Rinaldi LYMPH # 1.4 103/ul Normal 1.2-3.8 [facility] Comment on above: Performed By: #### C BC #### [facility] [address] [place] [address] Dr. Adan Rinaldi Lymphocytes/100 WBC (Bld) 25.0 % Normal 20.5-60.0 [facility] Comment on above: Performed By: #### C BC #### [facility] [address] [place] [address] Dr. Adan Rinaldi MANUAL DIFF REQ NO Normal [facility] Comment on above: Performed By: #### C BC #### [facility] [address] [place] [address] Dr. Adan Rinaldi MCH (RBC) [Entitic mass] 29.0 pg Normal 26.7-34.0 [facility] Comment on above: Performed By: #### C BC #### [facility] [address] [place] [address] Dr. Adan Rinaldi MCHC (RBC) [Mass/Vol] 32.5 g/dL Normal 29.9-35.2 [facility] Comment on above: Performed By: #### C BC #### [facility] [address] [place] [address] Dr. Adan Rinaldi MCV (RBC) [Entitic vol] 89.3 fL Normal 81.0-99.0 [facility] Comment on above: Performed By: #### C BC #### [facility] [address] [address] [address] Adan Rinaldi MONO # 0.6 103/ul Normal 0.3-0.8 [facility] Comment on above: Performed By: #### C BC #### [facility] [address] [address] [address] Adan Rinaldi Monocytes/100 WBC (Bld) 11.4 % Normal 1.7-12.0 [facility] Comment on above: Performed By: #### C BC #### [facility] [address] [address] [address] Adan Rinaldi NEUT # 3.1 103/ul Normal 1.4-6.5 [facility] Comment on above: Performed By: #### C BC #### [facility] [address] [address] [address] Adan Rinaldi Neutrophils/100 WBC (Bld) 57.0 % Normal 43.0-75.0 [facility] Comment on above: Performed By: #### C BC #### [facility] [address] [address] [address] Adan Rinaldi Platelet mean volume (Bld) [Entitic vol] 9.6 fL Normal 9.5-13.5 [facility] Comment on above: Performed By: #### C BC #### [facility] [address] [address] [address] Adan Rinaldi PLT 237 103/ul Normal 150-450 [facility] Comment on above: Performed By: #### C BC #### [facility] [address] [address] [address] Adan Rinaldi RBC 3.38 106/ul Critically low 4.20-5.40 [facility] Comment on above: Performed By: #### C BC #### [facility] [address] [address] [address] Adan Rinaldi WBC 5.5 103/ul Normal 4.0-11.0 [facility] Comment on above: Performed By: #### C BC #### [facility] [address] [place] [address] Dr. Adan Rinaldi GLYCOHEMOGLOBIN A1Con 2022 ADA RECOMMENDATION SEE BELOW Normal [facility] Comment on above: Result Comment: ADA RECOMMENDED LIMIT 4.0 - 6.0 ADA THERAPEUTIC TARGET < 7.0 ACTION SUGGESTED > 7.0 Performed By: #### C VDTB #### [facility] [address] [place] [address] Dr. Adan Rinaldi Glucose [Mass/Vol] 140 mg/dL Normal [facility] Comment on above: Performed By: #### C VDTBH #### [facility] [address] [place] [address] Dr. Adan Rinaldi HbA1c (Bld) [Mass fraction] 6.5 % Critically high 4.5-6.2 [facility] Comment on above: Performed By: #### C VDTB #### [facility] [address] [place] [address] Dr. Adan Rinaldi PROF CHEM 8 (BAS METB)on Anion gap [Moles/Vol] 11.1 mmol/L [facility] Comment on above: Performed By: #### C BC #### [facility] [address] [place] [address] Dr. Adan Rinaldi Calcium [Mass/Vol] 9.0 mg/dL Normal 8.5-10.1 [facility] Comment on above: Performed By: #### C BC #### [facility] [address] [place] [address] Dr. Adan Rinaldi Chloride [Moles/Vol] 101 mmol/L Normal 98-107 [facility] Comment on above: Performed By: #### C BC #### [facility] [address] [place] [address] Dr. Adan Rinaldi CO2 [Moles/Vol] 30.3 mmol/L Normal 21.0-32.0 [facility] Comment on above: Performed By: #### C BC #### [facility] [address] [place] [address] Dr. Adan Rinaldi Creatinine [Mass/Vol] 1.42 mg/dL Critically high 0.55-1.02 [facility] Comment on above: Performed By: #### C BC #### [facility] [address] [address] [address] Adan Rinaldi EGFR-AF MACANESE 43 mL/min/1.73m2 Critically low >=60 [facility] Comment on above: Performed By: #### C BC #### [facility] [address] [address] [address] Adan Rinaldi EGFR-NON AF MACANESE 35 mL/min/1.73m2 Critically low >=60 [facility] Comment on above: Performed By: #### C BC #### [facility] [address] [place] [address] Dr. Adan Rinaldi Glucose [Mass/Vol] 193 mg/dL Critically high 74-106 [facility] Comment on above: Performed By: #### C BC #### [facility] [address] [place] [address] Dr. Adan Rinaldi Potassium [Moles/Vol] 4.4 mmol/L Normal 3.5-5.1 [facility] Comment on above: Performed By: #### C BC #### [facility] [address] [place] [address] Dr. Adan Rinaldi Sodium [Moles/Vol] 138 mmol/L Normal 136-145 [facility] Comment on above: Performed By: #### C BC #### [facility] [address] [place] [address] Dr. Adan Rinaldi Urea nitrogen [Mass/Vol] 35.0 mg/dL Critically high 7.0-18.0 [facility] Comment on above: Performed By: #### C BC #### [facility] [address] [place] [address] Dr. Adan Rinaldi Urea nitrogen/Creatinine [Mass ratio] 24.6 mg/mg Normal [facility] Comment on above: Performed By: #### C BC #### [facility] [address] [place] [address] Dr. Adan Rinaldi XR hand LT min 3V*on 023 XR hand LT min 3V* [facility] [employer] Other XR hand LT min 3V* [facility] [employer] Other XR hand LT min 3V* [address] [facility] [employer] Other XR hand LT min 3V* [place] [id number] [employer] Other XR hand LT min 3V* XRay Report [employer] Other XR hand LT min 3V* Signed [employer] Other XR hand LT min 3V* Patient: Eliz Hewitt MR#: [id number] [employer] Other XR hand LT min 3V* 5804 [employer] Other XR hand LT min 3V* : 1935 Acct:[id number] [employer] Other XR hand LT min 3V* Age/Sex: 86 / F ADM Date: 10/26/22 [employer] Other XR hand LT min 3V* Loc: SOX Room: Type: [facility] [employer] Other XR hand LT min 3V* Attending Dr: Asad Pollard DO [employer] Other XR hand LT min 3V* Copies to: Asad Pollard DO [employer] Other XR hand LT min 3V* Ordering Provider: Asad Pollard DO [employer] Other XR hand LT min 3V* Date of Service: 10/26/22 [employer] Other XR hand LT min 3V* XR/XR hand LT min 3V*: Left hand pain [employer] Other XR hand LT min 3V* XR hand LT min 3V* 10/26/2022 2:05 PM [employer] Other XR hand LT min 3V* SIGNS AND SYMPTOMS: Right fourth metacarpal fracture, follow-up [employer] Other XR hand LT min 3V* PROTOCOL: Frontal, lateral, and oblique radiographs of the right hand [employer] Other XR hand LT min 3V* COMPARISON: 09/19/2022 [employer] Other XR hand LT min 3V* FINDINGS: [employer] Other XR hand LT min 3V* There is an obliquely oriented fracture of the fourth metacarpal along the distal shaft which is [employer] Other XR hand LT min 3V* mildly displaced. There is no change in alignment. There is a fracture at the base of the second [employer] Other XR hand LT min 3V* proximal phalanx with intra-articular extension which is unchanged. There is diffuse soft tissue [employer] Other XR hand LT min 3V* swelling which is similar to the prior exams. Degenerative changes are noted throughout the distal [employer] Other XR hand LT min 3V* interphalangeal joints and at the first carpal metacarpal junction. There is diffuse osteopenia. [employer] Other XR hand LT min 3V* XR/XR hand LT min 3V* [employer] Other XR hand LT min 3V* IMPRESSION: [employer] Other XR hand LT min 3V* mildly displaced. There is no change in alignment. [employer] Other XR hand LT min 3V* There is a fracture at the base of the second proximal phalanx with intra-articular extension which [employer] Other XR hand LT min 3V* is unchanged. Nor [employer] Other XR hand LT min 3V* Degenerative changes are redemonstrated, as above. [employer] Other XR hand LT min 3V* Impression dictated by: Abram Baltazar M.D.10/26/2022 4:20 PM [employer] Other XR hand LT min 3V* Dictation Location: [place] [address] [employer] Other XR hand LT min 3V* Transcribed By: YOU 10/26/22 1620 [employer] Other XR hand LT min 3V* Dictated By: Abram Baltazar II, MD 10/26/22 1603 [employer] Other XR hand LT min 3V* Signed By: [employer] Other XR hand LT min 3V* 10/26/22 1620 [facility] [employer] Other CBC AUTO DIFFon 10-05-2022 BASO # 0.1 103/ul Normal 0.0-0.1 [facility] Comment on above: Performed By: #### C BC #### [facility] [address] [place] [address] Dr. Adan Rinaldi Basophils/100 WBC (Bld) 0.7 % Normal 0.2-2.0 [facility] Comment on above: Performed By: #### C BC #### [facility] [address] [place] [address] Dr. Adan Rinaldi EO # 0.4 103/ul Normal 0.0-0.7 [facility] Comment on above: Performed By: #### C BC #### [facility] [address] [place] [address] Dr. Adan Rinaldi Eosinophils/100 WBC (Bld) 4.3 % Normal 0.9-7.0 [facility] Comment on above: Performed By: #### C BC #### [facility] [address] [place] [address] Dr. Adan Rinaldi Erythrocyte distribution width (RBC) [Ratio] 13.9 % Normal 11.0-15.0 [facility] Comment on above: Performed By: #### C BC #### [facility] [address] [place] [address] Dr. Adan Rinaldi Hematocrit (Bld) [Volume fraction] 25.9 % Critically low 36.0-48.0 [facility] Comment on above: Performed By: #### C BC #### [facility] [address] [place] [address] Dr. Adan Rinaldi Hemoglobin (Bld) [Mass/Vol] 8.4 g/dL Critically low 12.0-16.0 [facility] Comment on above: Performed By: #### C BC #### [facility] [address] [place] [address] Dr. Adan Rinaldi IG # 0.04 10e3/ul Critically high 0.00-0.03 [facility] Comment on above: Performed By: #### C BC #### [facility] [address] [place] [address] Dr. Adan Rinaldi IG % 0.5 % Normal 0.0-0.5 [facility] Comment on above: Performed By: #### C BC #### [facility] [address] [place] [address] Dr. Adan Rinaldi LYMPH # 0.8 103/ul Critically low 1.2-3.8 [facility] Comment on above: Performed By: #### C BC #### [facility] [address] [place] [address] Dr. Adan Rinaldi Lymphocytes/100 WBC (Bld) 9.6 % Critically low 20.5-60.0 [facility] Comment on above: Performed By: #### C BC #### [facility] [address] [place] [address] Dr. Adan Rinaldi MANUAL DIFF REQ NO Normal [facility] Comment on above: Performed By: #### C BC #### [facility] [address] [place] [address] Dr. Adan Rinaldi MCH (RBC) [Entitic mass] 28.7 pg Normal 26.7-34.0 [facility] Comment on above: Performed By: #### C BC #### [facility] [address] [address] [address] Adan Rinaldi MCHC (RBC) [Mass/Vol] 32.4 g/dL Normal 29.9-35.2 [facility] Comment on above: Performed By: #### C BC #### [facility] [address] [address] [address] Adan Rinaldi MCV (RBC) [Entitic vol] 88.4 fL Normal 81.0-99.0 [facility] Comment on above: Performed By: #### C BC #### [facility] [address] [address] [address] Adan Rinaldi MONO # 0.7 103/ul Normal 0.3-0.8 [facility] Comment on above: Performed By: #### C BC #### [facility] [address] [address] [address] Adan Rinaldi Monocytes/100 WBC (Bld) 8.0 % Normal 1.7-12.0 [facility] Comment on above: Performed By: #### C BC #### [facility] [address] [address] [address] Adan Rinaldi NEUT # 6.6 103/ul Critically high 1.4-6.5 [facility] Comment on above: Performed By: #### C BC #### [facility] [address] [address] [address] Adan Rinaldi Neutrophils/100 WBC (Bld) 76.9 % Critically high 43.0-75.0 [facility] Comment on above: Performed By: #### C BC #### [facility] [address] [address] [address] Adan Rinaldi Platelet mean volume (Bld) [Entitic vol] 9.1 fL Critically low 9.5-13.5 [facility] Comment on above: Performed By: #### C BC #### [facility] [address] [address] [address] Adan Rinaldi PLT 407 103/ul Normal 150-450 [facility] Comment on above: Performed By: #### C BC #### [facility] [address] [address] [address] Adan Rinaldi RBC 2.93 106/ul Critically low 4.20-5.40 [facility] Comment on above: Performed By: #### C BC #### [facility] [address] [address] [address] Adan Rinaldi WBC 8.6 103/ul Normal 4.0-11.0 [facility] Comment on above: Performed By: #### C BC #### [facility] [address] [address] [address] Adan Rinaldi POINT OF CARE GLUCOSEon 09-20 Glucose [Mass/Vol] 328 mg/dL Critically high 74-106 [facility] Comment on above: Performed By: #### P OCGLUC #### [facility] [address] [address] [address] Adan Rinaldi Glucose [Mass/Vol] 265 mg/dL Critically high 74-106 [facility] Comment on above: Performed By: #### P OCGLUC #### [facility] [address] [address] [address] Adan Rinaldi PROF 14(COMP METB)on 023 Albumin [Mass/Vol] 2.3 g/dL Critically low 3.4-5.0 [facility] Comment on above: Performed By: #### P OCGLUC #### [facility] [address] [address] [address] Adan Rinaldi Albumin/Globulin [Mass ratio] 0.5 {ratio} Normal [facility] Comment on above: Performed By: #### P OCGLUC #### [facility] [address] [address] [address] Adan Rinaldi ALP [Catalytic activity/Vol] 84 U/L Normal 46-116 [facility] Comment on above: Performed By: #### P OCGLUC #### [facility] [address] [address] [address] Adan Rinaldi ALT [Catalytic activity/Vol] 16 U/L Normal 14-59 [facility] Comment on above: Performed By: #### P OCGLUC #### [facility] [address] [address] [address] Adan Rinaldi Anion gap [Moles/Vol] 11.7 mmol/L Normal [facility] Comment on above: Performed By: #### P OCGLUC #### [facility] [address] [address] [address] Adan Rinaldi AST [Catalytic activity/Vol] 24 U/L Normal 15-37 [facility] Comment on above: Performed By: #### P OCGLUC #### [facility] [address] [address] [address] Adan Rinaldi Bilirubin [Mass/Vol] 0.5 mg/dL Normal 0.2-1.0 [facility] Comment on above: Performed By: #### P OCGLUC #### [facility] [address] [address] [address] Adan Rinaldi Calcium [Mass/Vol] 8.5 mg/dL Normal 8.5-10.1 [facility] Comment on above: Performed By: #### P OCGLUC #### [facility] [address] [address] [address] Adan Rinaldi Chloride [Moles/Vol] 96 mmol/L Critically low 98-107 [facility] Comment on above: Performed By: #### P OCGLUC #### [facility] [address] [address] [address] Adan Rinaldi CO2 [Moles/Vol] 27.2 mmol/L Normal 21.0-32.0 [facility] Comment on above: Performed By: #### P OCGLUC #### [facility] [address] [address] [address] Adan Rinaldi Creatinine [Mass/Vol] 1.37 mg/dL Critically high 0.55-1.02 [facility] Comment on above: Performed By: #### P OCGLUC #### [facility] [address] [address] [address] Adan Rinaldi EGFR-AF MACANESE 44 mL/min/1.73m2 Critically low >=60 [facility] Comment on above: Performed By: #### P OCGLUC #### [facility] [address] [address] [address] Adan Rinaldi EGFR-NON AF MACANESE 37 mL/min/1.73m2 Critically low >=60 [facility] Comment on above: Performed By: #### P OCGLUC #### [facility] [address] [address] [address] Adan Rinaldi Globulin (S) [Mass/Vol] 4.6 g/dL Normal [facility] Comment on above: Performed By: #### P OCGLUC #### [facility] [address] [address] [address] Adan Rinaldi Glucose [Mass/Vol] 276 mg/dL Critically high 74-106 [facility] Comment on above: Performed By: #### P OCGLUC #### [facility] [address] [address] [address] Adan Rinaldi Potassium [Moles/Vol] 3.9 mmol/L Normal 3.5-5.1 [facility] Comment on above: Performed By: #### P OCGLUC #### [facility] [address] [address] [address] Adan Rinaldi Protein [Mass/Vol] 6.9 g/dL Normal 6.4-8.2 [facility] Comment on above: Performed By: #### P OCGLUC #### [facility] [address] [address] [address] Adan Rinaldi Sodium [Moles/Vol] 131 mmol/L Critically low 136-145 Th [facility] Comment on above: Performed By: #### P OCGLUC #### [facility] [address] [address] [address] Adan Rinaldi Urea nitrogen [Mass/Vol] 19.0 mg/dL Critically high 7.0-18.0 [facility] Comment on above: Performed By: #### P OCGLUC #### [facility] [address] [address] [address] Adan Rinaldi Urea nitrogen/Creatinine [Mass ratio] 13.9 mg/mg Normal [facility] Comment on above: Performed By: #### P OCGLUC #### [facility] [address] [place] [address] Dr. Adan Rinaldi CBC AUTO DIFFon 10-04-2022 BASO # 0.1 103/ul Normal 0.0-0.1 [facility] Comment on above: Performed By: #### C VDTBH #### [facility] [address] [place] [address] Dr. Adan Rinaldi Basophils/100 WBC (Bld) 0.8 % Normal 0.2-2.0 [facility] Comment on above: Performed By: #### C VDTBH #### [facility] [address] [place] [address] Dr. Adan Rinaldi EO # 0.1 103/ul Normal 0.0-0.7 [facility] Comment on above: Performed By: #### C VDTBH #### [facility] [address] [place] [address] Dr. dAan Rinaldi Eosinophils/100 WBC (Bld) 0.9 % Normal 0.9-7.0 [facility] Comment on above: Performed By: #### C VDTBH #### [facility] [address] [place] [address] Dr. Adan Rinaldi Erythrocyte distribution width (RBC) [Ratio] 14.1 % Normal 11.0-15.0 [facility] Comment on above: Performed By: #### C VDTBH #### [facility] [address] [place] [address] Dr. Adan Rinaldi Hematocrit (Bld) [Volume fraction] 24.3 % Critically low 36.0-48.0 [facility] Comment on above: Performed By: #### C VDTBH #### [facility] [address] [place] [address] Dr. Adan Rinaldi Hemoglobin (Bld) [Mass/Vol] 7.8 g/dL Critically low 12.0-16.0 [facility] Comment on above: Performed By: #### C VDTBH #### [facility] [address] [place] [address] Dr. Adan Rinaldi IG # 0.03 10e3/ul Normal 0.00-0.03 [facility] Comment on above: Performed By: #### C VDTBH #### [facility] [address] [place] [address] Dr. Adan Rinaldi IG % 0.5 % Normal 0.0-0.5 [facility] Comment on above: Performed By: #### C VDTBH #### [facility] [address] [place] [address] Dr. Adan Rinaldi LYMPH # 0.8 103/ul Critically low 1.2-3.8 [facility] Comment on above: Performed By: #### C VDTBH #### [facility] [address] [place] [address] Dr. Adan Rinaldi Lymphocytes/100 WBC (Bld) 12.4 % Critically low 20.5-60.0 [facility] Comment on above: Performed By: #### C VDTBH #### [facility] [address] [place] [address] Dr. Adan Rinaldi MANUAL DIFF REQ NO Normal [facility] Comment on above: Performed By: #### C VDTBH #### [facility] [address] [place] [address] Dr. Adan Rinaldi MCH (RBC) [Entitic mass] 28.6 pg Normal 26.7-34.0 [facility] Comment on above: Performed By: #### C VDTBH #### [facility] [address] [place] [address] Dr. Adan Rinaldi MCHC (RBC) [Mass/Vol] 32.1 g/dL Normal 29.9-35.2 [facility] Comment on above: Performed By: #### C VDTBH #### [facility] [address] [place] [address] Dr. Adan Rinaldi MCV (RBC) [Entitic vol] 89.0 fL Normal 81.0-99.0 [facility] Comment on above: Performed By: #### C VDTBH #### [facility] [address] [place], [place] [id number] Dr. Adan Rinaldi MONO # 0.5 103/ul Normal 0.3-0.8 [facility] Comment on above: Performed By: #### C VDTBH #### [facility] [address] [place] [address] Dr. Adan Rinaldi Monocytes/100 WBC (Bld) 8.1 % Normal 1.7-12.0 [facility] Comment on above: Performed By: #### C VDTBH #### [facility] [address] [place] [address] Dr. Adan Rinaldi NEUT # 5.1 103/ul Normal 1.4-6.5 [facility] Comment on above: Performed By: #### C VDTBH #### [facility] [address] [place] [address] Dr. Adan Rinaldi Neutrophils/100 WBC (Bld) 77.3 % Critically high 43.0-75.0 [facility] Comment on above: Performed By: #### C VDTBH #### [facility] [address] [place] [address] Dr. Adan Rinaldi Platelet mean volume (Bld) [Entitic vol] 9.2 fL Critically low 9.5-13.5 [facility] Comment on above: Performed By: #### C VDTBH #### [facility] [address] [place] [address] Dr. Adan Rinaldi PLT 379 103/ul Normal 150-450 [facility] Comment on above: Performed By: #### C VDTBH #### [facility] [address] [place] [address] Dr. Adan Rinaldi RBC 2.73 106/ul Critically low 4.20-5.40 [facility] Comment on above: Performed By: #### C VDTBH #### [facility] [address] [place] [address] Dr. Adan Rinaldi WBC 6.5 103/ul Normal 4.0-11.0 [facility] Comment on above: Performed By: #### C VDTBH #### [facility] [address] [place] [address] Dr. Adan Rinaldi LACTATE/LACTIC ACIDon 2022 Lactate [Moles/Vol] 2.2 mmol/L Critically high 0.4-1.9 [facility] Comment on above: Performed By: #### H STROPN, BMP #### [facility] [address] [address] [address] Adan Rinladi POINT OF CARE GLUCOSEon 09-20 Glucose [Mass/Vol] 189 mg/dL Critically high -106 [facility] Comment on above: Performed By: #### C BC #### [facility] [address] [address] [address] Adan Rinaldi Glucose [Mass/Vol] 348 mg/dL Critically high [address] [place] [address] Comment on above: Performed By: #### C VDTBH #### [facility] [address] [address] [address] Adan Rinaldi Glucose [Mass/Vol] 263 mg/dL Critically high [address] [place] [address] Comment on above: Performed By: #### C VDTBH #### [facility] [address] [address] [address] Adan Rinaldi PROF 14(COMP METB)on 023 Albumin [Mass/Vol] 2.3 g/dL Critically low 3.4-5.0 Th [facility] Comment on above: Performed By: #### C VDTBH #### [facility] [address] [address] [address] Adan Rinaldi Albumin/Globulin [Mass ratio] 0.5 {ratio} Normal [facility] Comment on above: Performed By: #### C VDTBH #### [facility] [address] [address] [address] Adan Rinaldi ALP [Catalytic activity/Vol] 80 U/L Normal 46-116 [facility] Comment on above: Performed By: #### C VDTBH #### [facility] [address] [address] [address] Adan Rinaldi ALT [Catalytic activity/Vol] 17 U/L Normal 14-59 [facility] Comment on above: Performed By: #### C VDTBH #### [facility] [address] [address] [address] Adan Rinaldi Anion gap [Moles/Vol] 14.6 mmol/L Normal [facility] Comment on above: Performed By: #### C VDTBH #### [facility] [address] [address] [address] Adan Rinaldi AST [Catalytic activity/Vol] 24 U/L Normal 15-37 [facility] Comment on above: Performed By: #### C VDTBH #### [facility] [address] [address] [address] Adan Rinaldi Bilirubin [Mass/Vol] 0.4 mg/dL Normal 0.2-1.0 [facility] Comment on above: Performed By: #### C VDTBH #### [facility] [address] [address] [address] Adan Rinaldi Calcium [Mass/Vol] 8.1 mg/dL Critically low 8.5-10.1 [facility] Comment on above: Performed By: #### C VDTBH #### [facility] [address] [address] [address] Adan Rinaldi Chloride [Moles/Vol] 97 mmol/L Critically low 98-107 [facility] Comment on above: Performed By: #### C VDTBH #### [facility] [address] [address] [address] Adan Rinaldi CO2 [Moles/Vol] 25.9 mmol/L Normal 21.0-32.0 [facility] Comment on above: Performed By: #### C VDTBH #### [facility] [address] [address] [address] Adan Rinaldi Creatinine [Mass/Vol] 1.60 mg/dL Critically high 0.55-1.02 [facility] Comment on above: Performed By: #### C VDTBH #### [facility] [address] [address] [address] Adan Rinaldi EGFR-AF MACANESE 37 mL/min/1.73m2 Critically low >=60 [facility] Comment on above: Performed By: #### C VDTBH #### [facility] [address] [address] [address] Adan Rinaldi EGFR-NON AF MACANESE 31 mL/min/1.73m2 Critically low >=60 [facility] Comment on above: Performed By: #### C VDTBH #### [facility] [address] [place] [address] Dr. Adan Rinaldi Globulin (S) [Mass/Vol] 4.4 g/dL Normal [facility] Comment on above: Performed By: #### C VDTBH #### [facility] [address] [place] [address] Dr. Adna Rinaldi Glucose [Mass/Vol] 304 mg/dL Critically high 74-106 [facility] Comment on above: Performed By: #### C VDTBH #### [facility] [address] [place] [address] Dr. Adan Rinaldi Potassium [Moles/Vol] 3.5 mmol/L Normal 3.5-5.1 [facility] Comment on above: Performed By: #### C VDTBH #### [facility] [address] [place] [address] Dr. Adan Rinaldi Protein [Mass/Vol] 6.7 g/dL Normal 6.4-8.2 [facility] Comment on above: Performed By: #### C VDTBH #### [facility] [address] [place] [address] Dr. Adan Rinaldi Sodium [Moles/Vol] 134 mmol/L Critically low 136-145 Th [facility] Comment on above: Performed By: #### C VDTBH #### [facility] [address] [place] [address] Dr. Adan Rinaldi Urea nitrogen [Mass/Vol] 25.0 mg/dL Critically high 7.0-18.0 [facility] Comment on above: Performed By: #### C VDTBH #### [facility] [address] [place] [address] Dr. Adan Rinaldi Urea nitrogen/Creatinine [Mass ratio] 15.6 mg/mg Normal [facility] Comment on above: Performed By: #### C VDTBH #### [facility] [address] [place] [address] Dr. Adan Rinaldi T4on 10-04-2022 T4 [Mass/Vol] 7.80 ug/dL Normal 4.80-13.90 [facility] Comment on above: Performed By: #### P OCGLUC #### [facility] [address] [place] [address] Dr. Adan Rinaldi TSHon 10-04-2022 TSH 1.653 uIU/mL Normal 0.358-3.740 [facility] Comment on above: Performed By: #### P OCGLUC #### [facility] [address] [place] [address] Dr. Adan Rinaldi XR CHEST 2 Von [...] JOBY GALLARDO Date: 2022-10-04 15:49 Normal [facility] CBC AUTO DIFFon 10-03-2022 BASO # 0.1 103/ul Normal 0.0-0.1 [facility] Comment on above: Performed By: #### C BC #### [facility] [address] [place] [address] Dr. Adan Rinaldi Basophils/100 WBC (Bld) 0.8 % Normal 0.2-2.0 [facility] Comment on above: Performed By: #### C BC #### [facility] [address] [place] [address] Dr. Adan Rinaldi EO # 0.1 103/ul Normal 0.0-0.7 [facility] Comment on above: Performed By: #### C BC #### [facility] [address] [place], [place] [id number] Dr. Adan Rinaldi Eosinophils/100 WBC (Bld) 1.8 % Normal 0.9-7.0 [facility] Comment on above: Performed By: #### C BC #### [facility] [address] [place] [address] Dr. Adan Rinaldi Erythrocyte distribution width (RBC) [Ratio] 13.6 % Normal 11.0-15.0 [facility] Comment on above: Performed By: #### C BC #### [facility] [address] [place] [address] Dr. Adan Rinaldi Hematocrit (Bld) [Volume fraction] 28.6 % Critically low 36.0-48.0 [facility] Comment on above: Performed By: #### C BC #### [facility] [address] [place] [address] Dr. Adan Rinaldi Hemoglobin (Bld) [Mass/Vol] 9.3 g/dL Critically low 12.0-16.0 [facility] Comment on above: Performed By: #### C BC #### [facility] [address] [place] [address] Dr. Adan Rinaldi IG # 0.04 10e3/ul Critically high 0.00-0.03 [facility] Comment on above: Performed By: #### C BC #### [facility] [address] [place] [address] Dr. Adan Rinaldi IG % 0.6 % Critically high 0.0-0.5 [facility] Comment on above: Performed By: #### C BC #### [facility] [address] [place] [address] Dr. Adan Rinaldi LYMPH # 0.7 103/ul Critically low 1.2-3.8 [facility] Comment on above: Performed By: #### C BC #### [facility] [address] [place] [address] Dr. Adan Rinaldi Lymphocytes/100 WBC (Bld) 10.7 % Critically low 20.5-60.0 [facility] Comment on above: Performed By: #### C BC #### [facility] [address] [place] [address] Dr. Adan Rinaldi MANUAL DIFF REQ NO Normal [facility] Comment on above: Performed By: #### C BC #### [facility] [address] [place] [address] Dr. Adan Rinaldi MCH (RBC) [Entitic mass] 28.2 pg Normal 26.7-34.0 [facility] Comment on above: Performed By: #### C BC #### [facility] [address] [place] [address] Dr. Adan Rinaldi MCHC (RBC) [Mass/Vol] 32.5 g/dL Normal 29.9-35.2 [facility] Comment on above: Performed By: #### C BC #### [facility] [address] [place] [address] Dr. Adan Rinaldi MCV (RBC) [Entitic vol] 86.7 fL Normal 81.0-99.0 [facility] Comment on above: Performed By: #### C BC #### [facility] [address] [place] [address] Dr. Adan Rinaldi MONO # 0.7 103/ul Normal 0.3-0.8 [facility] Comment on above: Performed By: #### C BC #### [facility] [address] [place] [address] Dr. Adan Rinaldi Monocytes/100 WBC (Bld) 10.1 % Normal 1.7-12.0 [facility] Comment on above: Performed By: #### C BC #### [facility] [address] [place] [address] Dr. Adan Rinaldi NEUT # 5.0 103/ul Normal 1.4-6.5 [facility] Comment on above: Performed By: #### C BC #### [facility] [address] [place] [address] Dr. Adan Rinaldi Neutrophils/100 WBC (Bld) 76.0 % Critically high 43.0-75.0 [facility] Comment on above: Performed By: #### C BC #### [facility] [address] [place] [address] Dr. Adan Rinaldi Platelet mean volume (Bld) [Entitic vol] 9.3 fL Critically low 9.5-13.5 [facility] Comment on above: Performed By: #### C BC #### [facility] [address] [address] [address] Adan Rinaldi PLT 480 103/ul Critically high 150-450 [facility] Comment on above: Performed By: #### C BC #### [facility] [address] [address] [address] Adan Rinaldi RBC 3.30 106/ul Critically low 4.20-5.40 [facility] Comment on above: Performed By: #### C BC #### [facility] [address] [address] [address] Adan Rinaldi WBC 6.6 103/ul Normal 4.0-11.0 [facility] Comment on above: Performed By: #### C BC #### [facility] [address] [place] [address] HEAD WO CONon [...] impacted auditory canal cerumen. Electronically authenticated by: REALILEANA JESUS Date: 2022-10-03 15:52 Normal [facility] CULTURE BLOODon 10-03-2022 Microscopic examination of blood, culture Culture Observations: NO GROWTH AT 5 DAYS. Normal [facility] Comment on above: Performed By: #### P OCGLUC #### [facility] [address] [place] [address] Dr. Adan Rinaldi Microscopic examination of blood, culture Culture Observations: NO GROWTH AT 5 DAYS. Normal [facility] Comment on above: Performed By: #### B [id number] #### [facility] [address] [place] [address] Dr. Adan Rinaldi Covid-19 PCR (CVDTB)on 09-20 SARS-CoV-2 (COVID-19) RNA BLU+probe Ql (Unsp spec) Not detected Normal NOT DETECTED [facility] Comment on above: Result Comment: When [...] for this test is supported by the Director [employer] of [employer] and Human Service's declaration that [...] longer be used). Performed By: #### H STROPN, BMP #### [facility] [address] [place] [address] Dr. Adan Rinaldi ER URINE PROFILEon 3 Bilirubin Ql (U) Negative Normal NEGATIVE [facility] Comment on above: Performed By: #### C VDTBH #### [facility] [address] [place] [address] Dr. Adan Rinaldi Clarity (U) CLEAR Normal CLEAR [facility] Comment on above: Performed By: #### C VDTBH #### [facility] [address] [place] [address] Dr. Adan Rinaldi Color (U) LT. YELLOW Normal YELLOW [facility] Comment on above: Performed By: #### C VDTBH #### [facility] [address] [place] [address] Dr. Adan Rinaldi ERUAHBello A micrscopic examination will be performed if indicated. Normal [facility] Comment on above: Performed By: #### C VDTBH #### [facility] [address] [place] [address] Dr. Adan Rinaldi Glucose Ql (U) Negative Normal NEGATIVE [facility] Comment on above: Performed By: #### C VDTBH #### [facility] [address] [place] [address] Dr. Adan Rinaldi Hemoglobin Ql (U) Negative Normal NEGATIVE [facility] Comment on above: Performed By: #### C VDTBH #### [facility] [address] [place] [address] Dr. Adan Rinaldi Ketones Ql (U) Negative Normal NEGATIVE [facility] Comment on above: Performed By: #### C VDTBH #### [facility] [address] [place] [address] Dr. Adan Rinaldi LEUKOCYTES Negative Normal NEGATIVE [facility] Comment on above: Performed By: #### C VDTBH #### [facility] [address] [place] [address] Dr. Adan Rinaldi Nitrite Ql (U) Negative Normal NEGATIVE [facility] Comment on above: Performed By: #### C VDTBH #### [facility] [address] [place] [address] Dr. Adan Rinaldi pH (U) 8.0 [pH] Normal 5-9 [facility] Comment on above: Performed By: #### C VDTBH #### [facility] [address] [place] [address] Dr. Adan Rinaldi SPEC GRAVITY 1.010 Normal 1.005-<=1.025 [facility] Comment on above: Performed By: #### C VDTBH #### [facility] [address] [place] [address] Dr. Adan Rinaldi UA PROTEIN Negative Normal NEGATIVE/ TRACE [facility] Comment on above: Performed By: #### C VDTBH #### [facility] [address] [place] [address] Dr. Adan Rinaldi UR MICRO IND NOT INDICATED Normal [facility] Comment on above: Performed By: #### C VDTBH #### [facility] [address] [place] [address] Dr. Adan Rinaldi Urobilinogen Qn (U) 4 {Manny'U}/dL Abnormal 0.2 - 1.0 [facility] Comment on above: Performed By: #### C VDTBH #### [facility] [address] [place] [address] Dr. Adan Rinaldi INFLUENZA A AND B AGon 10-03 [facility] SEE BELOW Normal [facility] Comment on above: Result Comment: Nega tive for Flu A protein angiten. Infection due to Flu A cannot be ruled out. Flu A angiten in the sample may be below the detection limit of the test. Performed By: #### P OCGLUC #### [facility] [address] [place] [address] Dr. [facility] Normal [facility] Comment on above: Result Comment: Nega tive for Flu B protein antigen. Infection due to Flu B cannot be ruled out. Flu B antigen in the sample may be below the detection limit of the test. Performed By: #### P OCGLUC #### [facility] [address] [place] [address] Dr. Adan Rinaldi INFLUENZA A AG Negative Normal NEGATIVE SEE COMMENT [facility] Comment on above: Performed By: #### P OCGLUC #### [facility] [address] [place] [address] Dr. Adan Rinaldi INFLUENZA B AG Negative Normal NEGATIVE SEE COMMENT [facility] Comment on above: Performed By: #### P OCGLUC #### [facility] [address] [place] [address] Dr. Adan Rinaldi LACTATE/LACTIC ACIDon 2022 Lactate [Moles/Vol] 1.4 mmol/L Normal 0.4-1.9 [place] Comment on above: Performed By: #### H STROPN, BMP #### [facility] [address] [place] [address] Dr. Adan Rinaldi POINT OF CARE GLUCOSEon 09-20 Glucose [Mass/Vol] 169 mg/dL Critically high 74-106 [facility] Comment on above: Performed By: #### C BC #### [facility] [address] [place] [address] Dr. Adan Rinaldi Glucose [Mass/Vol] 276 mg/dL Critically high -106 [facility] Comment on above: Performed By: #### H STROPN, BMP #### [facility] [address] [place] [address] Dr. Adan Rinaldi PROF 14(COMP METB)on 023 Albumin [Mass/Vol] 2.6 g/dL Critically low 3.4-5.0 [facility] Comment on above: Performed By: #### C BC #### [facility] [address] [place] [address] Dr. Adan Rinaldi Albumin/Globulin [Mass ratio] 0.5 {ratio} Normal [facility] Comment on above: Performed By: #### C BC #### [facility] [address] [place] [address] Dr. Adan Rinaldi ALP [Catalytic activity/Vol] 92 U/L Normal 46-116 [facility] Comment on above: Performed By: #### C BC #### [facility] [address] [place] [address] Dr. Adan Rinaldi ALT [Catalytic activity/Vol] 25 U/L Normal 14-59 [facility] Comment on above: Performed By: #### C BC #### [facility] [address] [place] [address] Dr. Adan Rinaldi Anion gap [Moles/Vol] 14.3 mmol/L Normal [facility] Comment on above: Performed By: #### C BC #### [facility] [address] [address] [address] Adan Rinaldi AST [Catalytic activity/Vol] 28 U/L Normal 15-37 [facility] Comment on above: Performed By: #### C BC #### [facility] [address] [address] [address] Adan Rinaldi Bilirubin [Mass/Vol] 0.6 mg/dL Normal 0.2-1.0 [facility] Comment on above: Performed By: #### C BC #### [facility] [address] [address] [address] Adan Rinaldi Calcium [Mass/Vol] 9.0 mg/dL Normal 8.5-10.1 [facility] Comment on above: Performed By: #### C BC #### [facility] [address] [address] [address] Adan Rinaldi Chloride [Moles/Vol] 93 mmol/L Critically low 98-107 [facility] Comment on above: Performed By: #### C BC #### [facility] [address] [address] [address] Adan Rinaldi CO2 [Moles/Vol] 30.2 mmol/L Normal 21.0-32.0 [facility] Comment on above: Performed By: #### C BC #### [facility] [address] [address] [address] Adan Rinaldi Creatinine [Mass/Vol] 1.70 mg/dL Critically high 0.55-1.02 [facility] Comment on above: Performed By: #### C BC #### [facility] [address] [address] [address] Adan Rinaldi EGFR-AF MACANESE 35 mL/min/1.73m2 Critically low >=60 [facility] Comment on above: Performed By: #### C BC #### [facility] [address] [address] [address] Adan Rinaldi EGFR-NON AF MACANESE 29 mL/min/1.73m2 Critically low >=60 [facility] Comment on above: Performed By: #### C BC #### [facility] [address] [address] [address] Adan Rinaldi Globulin (S) [Mass/Vol] 5.2 g/dL Normal [facility] Comment on above: Performed By: #### C BC #### [facility] [address] [address] [address] Adan Rinaldi Glucose [Mass/Vol] 171 mg/dL Critically high 74-106 [facility] Comment on above: Performed By: #### C BC #### [facility] [address] [address] [address] Adan Rinaldi Potassium [Moles/Vol] 3.5 mmol/L Normal 3.5-5.1 [facility] Comment on above: Performed By: #### C BC #### [facility] [address] [address] [address] Adan Rinaldi Protein [Mass/Vol] 7.8 g/dL Normal 6.4-8.2 [facility] Comment on above: Performed By: #### C BC #### [facility] [address] [address] [address] Adan Rinaldi Sodium [Moles/Vol] 134 mmol/L Critically low 136-145 Th [facility] Comment on above: Performed By: #### C BC #### [facility] [address] [address] [address] Adan Rinaldi Urea nitrogen [Mass/Vol] 28.0 mg/dL Critically high 7.0-18.0 [facility] Comment on above: Performed By: #### C BC #### [facility] [address] [address] [address] Adan Rinaldi Urea nitrogen/Creatinine [Mass ratio] 16.5 mg/mg Normal [facility] Comment on above: Performed By: #### C BC #### [facility] [id number] Adan Rinaldi XR CHEST 1 Von [...] JOBY RICH Date: 2022-10-03 11:24 Normal [facility] Glucose Glucometer (BldC) [M ass/Vol]Ordered By: Donn Joseph on 09-24-2022 Glucose [Mass/Vol] 184 mg/dL [facility] Comment on above: Random Glucose Refer ence Range is dependent on time and content of last meal. Glucose of more than 200 mg/dL in a nonstressed, ambulatory subject supports the diagnosis of Diabetes Mellitus. Folate [Mass/volume] in Seru m or PlasmaOrdered By: Jodi Swift on 09-23-2022 Folate [Mass/Vol] 9.7 ng/mL >5.9 [facility] Comment on above: Folate reference ran ge: >5.9 ng/mlThe WHO technical consultation on folate and vitamin [id number] has determined that folate concentrations lessthan 4 ng/ml are considered deficient. Laboratory - Chemistry and C hemistry - challengeOrdered By: Jodi Swift on 09-23-2022 Cobalamin (Vitamin B12) [Mass/Vol] 545 pg/mL 180-914 [facility] No Panel InformationOrdered By: Donn Joseph on 09-23-2022 Bedside Glucose Comment Glu2: cleaned meter [facility] TSH DL <= 0.005 mIU/L QnOrde red By: Jodi Swift on 09-23-2022 TSH Qn 2.54 m[IU]/L 0.45-5.33 [facility] Automated erythrocytes count in urine sediment (number/area)Ordered By: Donn Joseph on 09-22-2022 RBC Auto (Urine sed) [#/Area] 1-2 [HPF] 0-4 [facility] Automated leukocytes count i n urine sediment (number/area)Ordered By: Donn Joseph on 09-22-2022 WBC Auto (Urine sed) [#/Area] 10-19 [HPF] 0-4 [facility] Automated urine hyaline cast s count (number/volume)Ordered By: Donn Joseph on 09-22-2022 Hyaline casts Auto (U) [#/Vol] 5-9 [LPF] 0-1 [facility] Basophils Auto (Bld) [#/Vol] Ordered By: Donn Joseph on 09-22-2022 Basophils (Bld) [#/Vol] 0.1 10*3/uL 0.0-0.2 [facility] Basophils/100 WBC Auto (Bld) Ordered By: Donn Joseph on 09-22-2022 Basophils/100 WBC (Bld) 0.9 % . [facility] Bilirubin Test strip Ql (U)O rdered By: Donn Joseph on 09-22-2022 Bilirubin Ql (U) Negative Negative [facility] Body fluid albumin measureme nt (mass/volume)Ordered By: Donn Joseph on 09-22-2022 Albumin (Body fld) [Mass/Vol] 2.4 g/dL 3.2-5.5 [facility] Casts typing in urine sedime nt by light microscopyOrdered By: Donn Joseph on 09-22-2022 Casts LM Nom (Urine sed) None seen [LPF] None Seen [facility] Color Auto (U)Ordered By: Flavia Joseph on 09-22-2022 Color (U) Dark yellow Yellow [facility] Creatinine and Glomerular fi ltration rate.predicted panel (S/P/Bld)Ordered By: Donn Joseph on 09-22-2022 Creatinine [Mass/Vol] 1.03 mg/dL 0.44-1.03 [facility] Eosinophils Auto (Bld) [#/Vo l]Ordered By: Donn Joseph on 09-22-2022 Eosinophils (Bld) [#/Vol] 0.1 10*3/uL 0.0-0.45 [facility] Eosinophils/100 WBC Auto (Bl d)Ordered By: Donn Joseph on 09-22-2022 Eosinophils/100 WBC (Bld) 1.6 % . [facility] Erythrocyte distribution wid th Auto (RBC) [Ratio]Ordered By: Donn Joseph on 09-22-2022 Erythrocyte distribution width (RBC) [Ratio] 15.6 % 11.9-15.3 [facility] Estimated glomerular filtrat ion rate (GFR) non- AmericanOrdered By: Donn Joseph on 09-22-2022 GFR/1.73 sq M.predicted among non-blacks MDRD (S/P/Bld) [Vol rate/Area] 51 mL/Min [facility] Fine granular cast count in urine sediment by microscopy (number/low power field )Ordered By: Donn Joseph on 09-22-2022 Fine Granular Casts LM.LPF (Urine sed) [#/Area] 1-2 [LPF] 0-1 [facility] Globulin Calc (S) [Mass/Vol] Ordered By: Donn Joseph on 09-22-2022 Globulin (S) [Mass/Vol] 3.4 g/dL [facility] Hematocrit Auto (Bld) [Volum e fraction]Ordered By: Donn Joseph on 09-22-2022 Hematocrit (Bld) [Volume fraction] 26.5 % 34.0-46.4 [facility] Hemoglobin [Mass/volume] in BloodOrdered By: Donn Joseph on 09-22-2022 Hemoglobin (Bld) [Mass/Vol] 8.8 g/dL 11.8-15.4 [facility] Ketones Auto test strip (U) [Mass/Vol]Ordered By: Donn Joseph on 09-22-2022 Ketones (U) [Mass/Vol] Trace Negative Fi [facility] Laboratory - Chemistry and C hemistry - challengeOrdered By: Donn Joseph on 09-22-2022 CO2 [Moles/Vol] 22.7 mmol/L 23.0-27.0 [facility] HCO3 (Bld) [Moles/Vol] 21.8 mmol/L 23.0-29.0 [facility] Natriuretic peptide B (Bld) [Mass/Vol] 3128.0 pg/mL 5-100 [facility] Leukocytes [#/volume] correc fern for nucleated erythrocytes in Blood by Automated counOrdered By: Donn Joseph on 09-22-2022 WBC corrected for nucl RBC Auto (Bld) [#/Vol] 8.6 10*3/uL 3.8-11.6 [facility] Lymphocytes Auto (Bld) [#/Vo l]Ordered By: Donn Joseph on 09-22-2022 Lymphocytes (Bld) [#/Vol] 0.9 10*3/uL 1.00-4.8 [facility] Lymphocytes/100 WBC Auto (Bl d)Ordered By: Donn Joseph on 09-22-2022 Lymphocytes/100 WBC (Bld) 10.4 % . [facility] MCH Auto (RBC) [Entitic mass ]Ordered By: Donn Joseph on 09-22-2022 MCH (RBC) [Entitic mass] 30.0 pg 24.7-34.3 [facility] MCHC Auto (RBC) [Mass/Vol]Or dered By: Donn Joseph on 09-22-2022 MCHC (RBC) [Mass/Vol] 33.3 g/dL 32.0-35.0 [facility] MCV Auto (RBC) [Entitic vol] Ordered By: Donn Joseph on 09-22-2022 MCV (RBC) [Entitic vol] 89.9 fL 80-100 [facility] Monocytes Auto (Bld) [#/Vol] Ordered By: Donn Joseph on 09-22-2022 Monocytes (Bld) [#/Vol] 0.8 10*3/uL 0.0-0.8 [facility] Monocytes/100 WBC Auto (Bld) Ordered By: Donn Joseph on 09-22-2022 Monocytes/100 WBC (Bld) 9.8 % . [facility] Neutrophils Auto (Bld) [#/Vo l]Ordered By: Donn Joseph on 09-22-2022 Neutrophils (Bld) [#/Vol] 6.6 10*3/uL 1.8-7.7 [facility] Neutrophils/100 WBC Auto (Bl d)Ordered By: Donn Joseph on 09-22-2022 Neutrophils/100 WBC (Bld) 77.3 % . [facility] Nitrite Test strip Ql (U)Ord ered By: Donn Joseph on 09-22-2022 Nitrite Ql (U) Negative Negative [facility] No Panel InformationOrdered By: Donn Joseph on 09-22-2022 Arterial Blood Base Excess -0.7 mmol/L -3.0-3.0 [facility] Arterial Blood Oxygen Content 6.0 mmol/L 6.6-9.7 [facility] Arterial Blood Oxygen Saturation 93.6 % 95.0-100.0 [facility] Arterial Blood Partial Pressure CO2 28.6 mm[Hg] 35.0-45.0 [facility] Arterial Blood Partial Pressure O2 61.9 mm[Hg] 80.0-100.0 [facility] Arterial Blood pH 7.50 7.35-7.45 [facility] Blood Gas Critical Value See comment [facility] Comment on above: Critical Value pruitt d on: 09/22/2022 at 17:27 Blood Gas Sample Site Right radial F [facility] FiO2 21 % [facility] Estimated GFR () > 60 mL/Min [facility] Comment on above: GFR estimated refere nce range: According to KDOQI guidelines, <60 ml/min/1.73m2 is sufficient to diagnose a patient with chronic kidney disease. Pharmacy Creatinine Clearance (Chem 34.48 [facility] Nucleated erythrocytes [Pres ence] in Blood by Automated countOrdered By: Donn Joseph on 09-22-2022 Nucleated RBC Auto Ql (Bld) 0.1 /100{WBC} 0-0.5 [facility] Platelet mean volume Auto (B ld) [Entitic vol]Ordered By: Donn Joseph on 09-22-2022 Platelet mean volume (Bld) [Entitic vol] 8.2 fL 6.3-10.7 [facility] Platelets Auto (Bld) [#/Vol] Ordered By: Donn Joseph on 09-22-2022 Platelets (Bld) [#/Vol] 161 10*3/uL 150-450 [facility] Protein Auto test strip (U) [Mass/Vol]Ordered By: Donn Joseph on 09-22-2022 Protein (U) [Mass/Vol] 100 mg/dL Negative [facility] Protein [Mass/volume] in Ser um or PlasmaOrdered By: Donn Joseph on 09-22-2022 Protein [Mass/Vol] 5.8 g/dL 6.1-7.9 [facility] RBC Auto (Bld) [#/Vol]Ordere d By: Donn Joseph on 09-22-2022 RBC (Bld) [#/Vol] 2.94 10*6/uL 3.60-5.00 [facility] Serum or plasma alanine cox otransferase measurement without P-5'-P (enzymatic activiOrdered By: Donn Joseph on 09-22-2022 ALT No additional P-5'-P [Catalytic activity/Vol] 17 U/L 10-60 [facility] Serum or plasma albumin/glob ulin mass ratioOrdered By: Donn Joseph on 09-22-2022 Albumin/Globulin [Mass ratio] 0.7 {ratio} [facility] Serum or plasma alkaline angela sphatase measurement (enzymatic activity/volume)Ordered By: Donn Joseph on 09-22-2022 ALP [Catalytic activity/Vol] 77 U/L 32-92 [facility] Serum or plasma anion gap de terminationOrdered By: Donn Joseph on 09-22-2022 Anion gap [Moles/Vol] 12.6 mmol/L 6.0-15.0 [facility] Serum or plasma aspartate am inotransferase measurement (enzymatic activity/volume)Ordered By: Donn Joseph on 09-22-2022 AST [Catalytic activity/Vol] 24 U/L 10-42 [facility] Serum or plasma calcium terri urement (mass/volume)Ordered By: Donn Joseph on 09-22-2022 Calcium [Mass/Vol] 7.9 mg/dL 8.2-10.2 [facility] Serum or plasma chloride keny surement (moles/volume)Ordered By: Donn Joseph on 09-22-2022 Chloride [Moles/Vol] 102 mmol/L 95-114 [facility] Serum or plasma glucose terri urement (mass/volume)Ordered By: Donn Joseph on 09-22-2022 Glucose [Mass/Vol] 232 mg/dL 70-100 [facility] Comment on above: ADA recommended refe rence rangeRandom Glucose Reference Range is dependent on time and content of last meal. Glucose of more than 200 mg/dL in a nonstressed, ambulatory subject supports the diagnosis of Diabetes Mellitus. Serum or plasma potassium me asurement (moles/volume)Ordered By: Donn Joseph on 09-22-2022 Potassium [Moles/Vol] 3.6 mmol/L 3.5-5.1 [facility] Serum or plasma sodium measu rement (moles/volume)Ordered By: Donn Joseph on 09-22-2022 Sodium [Moles/Vol] 131 mmol/L 136-146 [facility] Serum or plasma total biliru bin measurement (mass/volume)Ordered By: Donn Joseph on 09-22-2022 Bilirubin [Mass/Vol] 0.5 mg/dL 0.3-1.2 [facility] Serum or plasma total carbon dioxide measurement (moles/volume)Ordered By: Donn Joseph on 09-22-2022 CO2 [Moles/Vol] 20.0 mmol/L 22.0-30.0 [facility] Serum or plasma urea nitroge n measurement (mass/volume)Ordered By: Donn Joseph on 09-22-2022 Urea nitrogen [Mass/Vol] 26 mg/dL 9-23 [facility] Specific gravity Auto test s trip (U) [Rel density]Ordered By: Donn Joseph on 09-22-2022 Specific gravity (U) [Rel density] 1.025 1.001-1.030 [facility] Squamous epithelial cells de tection in urine sediment by light microscopyOrdered By: Donn Joseph on 09-22-2022 Epithelial cells.squamous LM Ql (Urine sed) 5-9 [HPF] 0-2 [facility] Urine bacteria detection by automated methodOrdered By: Donn Joseph on 09-22-2022 Bacteria Auto Ql (U) None seen None Seen [facility] Urine clarity by refractomet ry automatedOrdered By: Donn Joseph on 09-22-2022 Clarity Refractometry automated (U) Cloudy Clear [facility] Urine culture routineOrdered By: Donn Joseph on 09-22-2022 Bacteria identified Cx [facility] Cx Nom [facility] Urine glucose measurement by automated test strip (mass/volume)Ordered By: Donn Joseph on 09-22-2022 Glucose Auto test strip (U) [Mass/Vol] 500 mg/dL Normal [facility] Urine hemoglobin detection b y automated test stripOrdered By: Donn Joseph on 09-22-2022 Hemoglobin Auto test strip Ql (U) Trace Negative [facility] Urine lactic acid measuremen tOrdered By: Donn Joseph on 09-22-2022 Lactate (U) [Moles/Vol] 1.0 mmol/L 0.5-2.2 [facility] Urine leukocyte esterase det ection by automated test stripOrdered By: Donn Joseph on 09-22-2022 Leukocyte esterase Auto test strip Ql (U) 2+ Negative [facility] Urine sediment renal epithel ial cell count by microscopy (number/high power field)Ordered By: Donn Joseph on 09-22-2022 Epithelial cells.renal LM.HPF (Urine sed) [#/Area] None seen [HPF] 0-1 [facility] Urobilinogen Auto test strip (U) [Mass/Vol]Ordered By: Donn Joseph on 09-22-2022 Urobilinogen (U) [Mass/Vol] Normal mg/dL Normal [facility] WBC Auto (Bld) [#/Vol]Ordere d By: Donn Joseph on 09-22-2022 WBC (Bld) [#/Vol] 8.6 10*3/uL 3.8-11.6 [facility] Yeast detection in urine sed iment by light microscopyOrdered By: Donn Joseph on 09-22-2022 Yeast LM Ql (Urine sed) None seen [HPF] None Seen [facility] pH Auto test strip (U)Ordere d By: Donn Joseph on 09-22-2022 pH (U) 5.5 [pH] 5.0-9.0 [facility] Creatine kinase [Enzymatic a ctivity/volume] in Serum or PlasmaOrdered By: Dusty Singh on 09-21-2022 CK [Catalytic activity/Vol] 375 U/L 22-269 [facility] Serum or plasma creatine kin ase MB (CKMB)/total creatine kinase (CK) ratio by calculaOrdered By: Donn Joseph on 09-20-2022 CK.MB Calc [Catalytic fraction] 2.6 % 0.00-2.50 [facility] Serum or plasma creatine kin ase MB measurement (mass/volume)Ordered By: Donn Joseph on 09-20-2022 CK.MB [Mass/Vol] 16.8 ng/mL 0.6-6.3 [facility] Troponin I.cardiac [Mass/vol ume] in Serum or Plasma by High sensitivity methodOrdered By: Donn Joseph on 09-20-2022 Troponin I.cardiac High sensitivity method [Mass/Vol] 155 pg/mL 0-15 [facility] Comment on above: Results calledat 065 4 on 09/20/22 Automated erythrocytes count in urine sediment (number/area)Ordered By: Brad Harper on 09-19-2022 RBC Auto (Urine sed) [#/Area] 5-9 [HPF] 0-4 [facility] Automated leukocytes count i n urine sediment (number/area)Ordered By: Brad Harper on 09-19-2022 WBC Auto (Urine sed) [#/Area] 1-2 [HPF] 0-4 [facility] Basophils Auto (Bld) [#/Vol] Ordered By: Brad Harper on 09-19-2022 Basophils (Bld) [#/Vol] 0.1 10*3/uL 0.0-0.2 [facility] Basophils/100 WBC Auto (Bld) Ordered By: Brad Harper on 09-19-2022 Basophils/100 WBC (Bld) 0.6 % . [facility] Bilirubin Test strip Ql (U)O rdered By: Brad Harper on 09-19-2022 Bilirubin Ql (U) Negative Negative [facility] Body fluid albumin measureme nt (mass/volume)Ordered By: Brad Harper on 09-19-2022 Albumin (Body fld) [Mass/Vol] 3.5 g/dL 3.2-5.5 [facility] Color Auto (U)Ordered By: Edgardo Harper on 09-19-2022 Color (U) Yellow Yellow [facility] Creatine kinase [Enzymatic a ctivity/volume] in Serum or PlasmaOrdered By: Brad Harper on 09-19-2022 CK [Catalytic activity/Vol] 745 U/L 22-269 [facility] Creatinine and Glomerular fi ltration rate.predicted panel (S/P/Bld)Ordered By: Brad Harper on 09-19-2022 Creatinine [Mass/Vol] 1.09 mg/dL 0.44-1.03 [facility] Eosinophils Auto (Bld) [#/Vo l]Ordered By: Brad Harper on 09-19-2022 Eosinophils (Bld) [#/Vol] 0.0 10*3/uL 0.0-0.45 [facility] Eosinophils/100 WBC Auto (Bl d)Ordered By: Brad Harper on 09-19-2022 Eosinophils/100 WBC (Bld) 0.1 % . [facility] Erythrocyte distribution wid th Auto (RBC) [Ratio]Ordered By: Brad Harper on 09-19-2022 Erythrocyte distribution width (RBC) [Ratio] 15.5 % 11.9-15.3 [facility] Estimated glomerular filtrat ion rate (GFR) non- AmericanOrdered By: Brad Harper on 09-19-2022 GFR/1.73 sq M.predicted among non-blacks MDRD (S/P/Bld) [Vol rate/Area] 48 mL/Min [facility] Globulin Calc (S) [Mass/Vol] Ordered By: Brad Harper on 09-19-2022 Globulin (S) [Mass/Vol] 4.1 g/dL [facility] Hematocrit Auto (Bld) [Volum e fraction]Ordered By: Brad Harper on 09-19-2022 Hematocrit (Bld) [Volume fraction] 34.0 % 34.0-46.4 [facility] Hemoglobin [Mass/volume] in BloodOrdered By: Brad Harper on 09-19-2022 Hemoglobin (Bld) [Mass/Vol] 11.3 g/dL 11.8-15.4 [facility] Ketones Auto test strip (U) [Mass/Vol]Ordered By: Brad Harper on 09-19-2022 Ketones (U) [Mass/Vol] 1+ Negative Fi [facility] Laboratory - Chemistry and C hemistry - challengeOrdered By: Brad Harper on 09-19-2022 Lipase [Catalytic activity/Vol] 26.0 U/L 22-51 [facility] Laboratory - UrinalysisOrder ed By: Brad Harper on 09-19-2022 Hyaline casts LM Ql (Urine sed) 0-8 [LPF] 0-8 [facility] Leukocytes [#/volume] correc fern for nucleated erythrocytes in Blood by Automated counOrdered By: Brad Harper on 09-19-2022 WBC corrected for nucl RBC Auto (Bld) [#/Vol] 10.6 10*3/uL 3.8-11.6 [facility] Lymphocytes Auto (Bld) [#/Vo l]Ordered By: Brda Harper on 09-19-2022 Lymphocytes (Bld) [#/Vol] 0.5 10*3/uL 1.00-4.8 [facility] Lymphocytes/100 WBC Auto (Bl d)Ordered By: Brad Harper on 09-19-2022 Lymphocytes/100 WBC (Bld) 4.4 % . [facility] MCH Auto (RBC) [Entitic mass ]Ordered By: Brad Harper on 09-19-2022 MCH (RBC) [Entitic mass] 29.7 pg 24.7-34.3 [facility] MCHC Auto (RBC) [Mass/Vol]Or dered By: Brad Harper on 09-19-2022 MCHC (RBC) [Mass/Vol] 33.2 g/dL 32.0-35.0 [facility] MCV Auto (RBC) [Entitic vol] Ordered By: Brad Harper on 09-19-2022 MCV (RBC) [Entitic vol] 89.4 fL 80-100 [facility] Monocyte distribution width [Entitic volume] in Blood by AutomatedOrdered By: Brad Harper on 09-19-2022 Monocyte distribution width Auto (Bld) [Entitic vol] 18.24 % 0.00-20.00 [facility] Monocytes Auto (Bld) [#/Vol] Ordered By: Brad Harper on 09-19-2022 Monocytes (Bld) [#/Vol] 0.7 10*3/uL 0.0-0.8 [facility] Monocytes/100 WBC Auto (Bld) Ordered By: Brad Harper on 09-19-2022 Monocytes/100 WBC (Bld) 6.7 % . [facility] Neutrophils Auto (Bld) [#/Vo l]Ordered By: Brad Harper on 09-19-2022 Neutrophils (Bld) [#/Vol] 9.3 10*3/uL 1.8-7.7 [facility] Neutrophils/100 WBC Auto (Bl d)Ordered By: Brad Harper on 09-19-2022 Neutrophils/100 WBC (Bld) 88.2 % . [facility] Nitrite Test strip Ql (U)Ord ered By: Brad Harper on 09-19-2022 Nitrite Ql (U) Negative Negative [facility] No Panel InformationOrdered By: Brad Harper on 09-19-2022 Estimated GFR () 58 mL/Min [facility] Comment on above: GFR estimated refere nce range: According to KDOQI guidelines, <60 ml/min/1.73m2 is sufficient to diagnose a patient with chronic kidney disease. Pharmacy Creatinine Clearance (Chem 30.82 [facility] Nucleated erythrocytes [Pres ence] in Blood by Automated countOrdered By: Brad Harper on 09-19-2022 Nucleated RBC Auto Ql (Bld) 0.0 /100{WBC} 0-0.5 [facility] Platelet mean volume Auto (B ld) [Entitic vol]Ordered By: Brad Harper on 09-19-2022 Platelet mean volume (Bld) [Entitic vol] 7.8 fL 6.3-10.7 [facility] Platelets Auto (Bld) [#/Vol] Ordered By: Brad Harper on 09-19-2022 Platelets (Bld) [#/Vol] 285 10*3/uL 150-450 [facility] Protein Auto test strip (U) [Mass/Vol]Ordered By: Brad Harper on 09-19-2022 Protein (U) [Mass/Vol] 300 mg/dL Negative [facility] Protein [Mass/volume] in Ser um or PlasmaOrdered By: Brad Harper on 09-19-2022 Protein [Mass/Vol] 7.6 g/dL 6.1-7.9 [facility] RBC Auto (Bld) [#/Vol]Ordere d By: Brad Harper on 09-19-2022 RBC (Bld) [#/Vol] 3.81 10*6/uL 3.60-5.00 [facility] Serum or plasma alanine cox otransferase measurement without P-5'-P (enzymatic activiOrdered By: Brad Harper on 09-19-2022 ALT No additional P-5'-P [Catalytic activity/Vol] 19 U/L 10-60 [facility] Serum or plasma albumin/glob ulin mass ratioOrdered By: Brad Harper on 09-19-2022 Albumin/Globulin [Mass ratio] 0.9 {ratio} [facility] Serum or plasma alkaline angela sphatase measurement (enzymatic activity/volume)Ordered By: Brad Harper on 09-19-2022 ALP [Catalytic activity/Vol] 100 U/L 32 [facility] Serum or plasma anion gap de terminationOrdered By: Brad Harper on 09-19-2022 Anion gap [Moles/Vol] 18.0 mmol/L 6.0-15.0 [facility] Serum or plasma aspartate am inotransferase measurement (enzymatic activity/volume)Ordered By: Brad Harper on 09-19-2022 AST [Catalytic activity/Vol] 44 U/L 1042 [facility] Serum or plasma calcium terri urement (mass/volume)Ordered By: Brad Harper on 09-19-2022 Calcium [Mass/Vol] 9.0 mg/dL 8.2-10.2 [facility] Serum or plasma chloride keny surement (moles/volume)Ordered By: Brad Harper on 09-19-2022 Chloride [Moles/Vol] 99 mmol/L 95-114 [facility] Serum or plasma glucose terri urement (mass/volume)Ordered By: Brad Harper on 09-19-2022 Glucose [Mass/Vol] 348 mg/dL 70-100 [facility] Comment on above: ADA recommended refe rence rangeRandom Glucose Reference Range is dependent on time and content of last meal. Glucose of more than 200 mg/dL in a nonstressed, ambulatory subject supports the diagnosis of Diabetes Mellitus. Serum or plasma potassium me asurement (moles/volume)Ordered By: Brad Harper on 09-19-2022 Potassium [Moles/Vol] 3.8 mmol/L 3.5-5.1 [facility] Serum or plasma sodium measu rement (moles/volume)Ordered By: Brad Harper on 09-19-2022 Sodium [Moles/Vol] 134 mmol/L 136-146 [facility] Serum or plasma total biliru bin measurement (mass/volume)Ordered By: Brad Harper on 09-19-2022 Bilirubin [Mass/Vol] 1.1 mg/dL 0.3-1.2 [facility] Serum or plasma total carbon dioxide measurement (moles/volume)Ordered By: Brad Harper on 09-19-2022 CO2 [Moles/Vol] 20.8 mmol/L 22.0-30.0 [facility] Serum or plasma urea nitroge n measurement (mass/volume)Ordered By: Brad Harper on 09-19-2022 Urea nitrogen [Mass/Vol] 23 mg/dL 9-23 [facility] Specific gravity Auto test s trip (U) [Rel density]Ordered By: Brad Harper on 09-19-2022 Specific gravity (U) [Rel density] 1.026 1.001-1.030 [facility] Squamous epithelial cells de tection in urine sediment by light microscopyOrdered By: Brad Harper on 09-19-2022 Epithelial cells.squamous LM Ql (Urine sed) 0-1 [HPF] 0-2 [facility] Troponin I.cardiac [Mass/vol ume] in Serum or Plasma by High sensitivity methodOrdered By: Brad Harper on 09-19-2022 Troponin I.cardiac High sensitivity method [Mass/Vol] 138 pg/mL 0-15 [facility] Comment on above: Results calledat 005 6 on 09/20/22 Urine bacteria detection by automated methodOrdered By: Brad Harper on 09-19-2022 Bacteria Auto Ql (U) None seen None Seen [facility] Urine clarity by refractomet ry automatedOrdered By: Brad Harper on 09-19-2022 Clarity Refractometry automated (U) Clear Clear [facility] Urine glucose measurement by automated test strip (mass/volume)Ordered By: Brad Harper on 09-19-2022 Glucose Auto test strip (U) [Mass/Vol] >=1000 mg/dL Normal [facility] Urine hemoglobin detection b y automated test stripOrdered By: Brad Harper on 09-19-2022 Hemoglobin Auto test strip Ql (U) 2+ Negative [facility] Urine leukocyte esterase det ection by automated test stripOrdered By: Brad Harper on 09-19-2022 Leukocyte esterase Auto test strip Ql (U) Negative Negative [facility] Urobilinogen Auto test strip (U) [Mass/Vol]Ordered By: Brad Harper on 09-19-2022 Urobilinogen (U) [Mass/Vol] Normal mg/dL Normal [facility] WBC Auto (Bld) [#/Vol]Ordere d By: Brad Harper on 09-19-2022 WBC (Bld) [#/Vol] 10.6 10*3/uL 3.8-11.6 [facility] pH Auto test strip (U)Ordere d By: Brad Harper on 09-19-2022 pH (U) 6.5 [pH] 5.0-9.0 [facility] CBC AUTO DIFFon 09-08-2022 BASO # 0.1 103/ul Normal 0.0-0.1 [facility] Comment on above: Performed By: #### C BC #### [facility] [address] [address] [address] Adan Rinaldi Basophils/100 WBC (Bld) 0.8 % Normal 0.2-2.0 [facility] Comment on above: Performed By: #### C BC #### [facility] [address] [place] [address] Dr. Adan Rinaldi EO # 0.4 103/ul Normal 0.0-0.7 [facility] Comment on above: Performed By: #### C BC #### [facility] [address] [place] [address] Dr. Adan Rinaldi Eosinophils/100 WBC (Bld) 5.8 % Normal 0.9-7.0 [facility] Comment on above: Performed By: #### C BC #### [facility] [address] [place] [address] Dr. Adan Rinaldi Erythrocyte distribution width (RBC) [Ratio] 14.4 % Normal 11.0-15.0 [facility] Comment on above: Performed By: #### C BC #### [facility] [address] [place] [address] Dr. Adan Rinaldi Hematocrit (Bld) [Volume fraction] 28.5 % Critically low 36.0-48.0 [facility] Comment on above: Performed By: #### C BC #### [facility] [address] [place] [address] Dr. Adan Rinaldi Hemoglobin (Bld) [Mass/Vol] 9.3 g/dL Critically low 12.0-16.0 [facility] Comment on above: Performed By: #### C BC #### [facility] [address] [place] [address] Dr. Adan Rinaldi IG # 0.02 10e3/ul Normal 0.00-0.03 [facility] Comment on above: Performed By: #### C BC #### [facility] [address] [place] [address] Dr. Adan Rinaldi IG % 0.3 % Normal 0.0-0.5 [facility] Comment on above: Performed By: #### C BC #### [facility] [address] [place] [address] Dr. Adan Rinaldi LYMPH # 1.0 103/ul Critically low 1.2-3.8 [facility] Comment on above: Performed By: #### C BC #### [facility] [address] [place] [address] Dr. Adan Rinaldi Lymphocytes/100 WBC (Bld) 13.9 % Critically low 20.5-60.0 [facility] Comment on above: Performed By: #### C BC #### [facility] [address] [place] [address] Dr. Adan Rinaldi MANUAL DIFF REQ NO Normal [facility] Comment on above: Performed By: #### C BC #### [facility] [address] [place] [address] Dr. Adan Rinaldi MCH (RBC) [Entitic mass] 29.3 pg Normal 26.7-34.0 [facility] Comment on above: Performed By: #### C BC #### [facility] [address] [place] [address] Dr. Adan Rinaldi MCHC (RBC) [Mass/Vol] 32.6 g/dL Normal 29.9-35.2 [facility] Comment on above: Performed By: #### C BC #### [facility] [address] [place] [address] Dr. Adan Rinaldi MCV (RBC) [Entitic vol] 89.9 fL Normal 81.0-99.0 [facility] Comment on above: Performed By: #### C BC #### [facility] [address] [place] [address] Dr. Adan Rinaldi MONO # 0.8 103/ul Normal 0.3-0.8 [facility] Comment on above: Performed By: #### C BC #### [facility] [address] [place] [address] Dr. Adan Rinaldi Monocytes/100 WBC (Bld) 10.5 % Normal 1.7-12.0 [facility] Comment on above: Performed By: #### C BC #### [facility] [address] [place] [address] Dr. Adan Rinaldi NEUT # 5.1 103/ul Normal 1.4-6.5 [facility] Comment on above: Performed By: #### C BC #### [facility] [address] [place] [address] Dr. Adan Rinaldi Neutrophils/100 WBC (Bld) 68.7 % Normal 43.0-75.0 [facility] Comment on above: Performed By: #### C BC #### [facility] [address] [place] [address] Dr. Adan Rinaldi Platelet mean volume (Bld) [Entitic vol] 10.0 fL Normal 9.5-13.5 [facility] Comment on above: Performed By: #### C BC #### [facility] [address] [place] [address] Dr. Adan Rinaldi PLT 271 103/ul Normal 150-450 [facility] Comment on above: Performed By: #### C BC #### [facility] [address] [place] [address] Dr. Adan Rinaldi RBC 3.17 106/ul Critically low 4.20-5.40 [facility] Comment on above: Performed By: #### C BC #### [facility] [address] [place] [address] Dr. Adan Rinaldi WBC 7.4 103/ul Normal 4.0-11.0 [facility] Comment on above: Performed By: #### C BC #### [facility] [address] [place] [address] Dr. Adan Rinaldi PROF CHEM 8 (BAS METB)on Anion gap [Moles/Vol] 14.3 mmol/L [facility] Comment on above: Performed By: #### C BC #### [facility] [address] [place] [address] Dr. Adan Rinaldi Calcium [Mass/Vol] 8.8 mg/dL Normal 8.5-10.1 [facility] Comment on above: Performed By: #### C BC #### [facility] [address] [place] [address] Dr. Adan Rinaldi Chloride [Moles/Vol] 98 mmol/L Normal 98-107 [facility] Comment on above: Performed By: #### C BC #### [facility] [address] [place] [address] Dr. Adan Rinaldi CO2 [Moles/Vol] 29.3 mmol/L Normal 21.0-32.0 [facility] Comment on above: Performed By: #### C BC #### [facility] [address] [address] [address] Adan Rinaldi Creatinine [Mass/Vol] 1.41 mg/dL Critically high 0.55-1.02 [facility] Comment on above: Performed By: #### C BC #### [facility] [address] [address] [address] Adan Rinaldi EGFR-AF MACANESE 43 mL/min/1.73m2 Critically low >=60 [facility] Comment on above: Performed By: #### C BC #### [facility] [address] [address] [address] Adan Rinaldi EGFR-NON AF MACANESE 35 mL/min/1.73m2 Critically low >=60 [facility] Comment on above: Performed By: #### C BC #### [facility] [address] [address] [address] Adan Rinaldi Glucose [Mass/Vol] 254 mg/dL Critically high 74-106 [facility] Comment on above: Performed By: #### C BC #### [facility] [address] [address] [address] Adan Rinaldi Potassium [Moles/Vol] 4.6 mmol/L Normal 3.5-5.1 [facility] Comment on above: Performed By: #### C BC #### [facility] [address] [address] [address] Adan Rinaldi Sodium [Moles/Vol] 137 mmol/L Normal 136-145 [facility] Comment on above: Performed By: #### C BC #### [facility] [address] [address] [address] Adan Rinaldi Urea nitrogen [Mass/Vol] 30.0 mg/dL Critically high 7.0-18.0 [facility] Comment on above: Performed By: #### C BC #### [facility] [address] [address] [address] Adan Rinaldi Urea nitrogen/Creatinine [Mass ratio] 21.3 mg/mg Normal [facility] Comment on above: Performed By: #### C BC #### [facility] [address] [address] [address] Adan Rinaldi Telephone Encounteron 2021 [employer] Authentication Interface Message Text Patients son Alek calling in. He is following up from the ED Resident Consult. Patient was seen in ED/Admitted on 09/03/22. She was seen by Dental Resident Dr. Mccall. The resident recommended: patient has been advised to come to the [facility] for comprehensive evaluation and treatment of teeth #5-#8. There are no appointments that [facility] can schedule into. Please reach out to Alek to assist with scheduling. Normal [facility] BASIC METABOLIC PANELon 08-20 Anion gap [Moles/Vol] 15 mmol/L Normal 10-20 [facility] Comment on above: Performed By: #### C H8 #### [facility] [address] [place] [address], Calcium [Mass/Vol] 8.3 mg/dL Low 8.4-10.4 [facility] Comment on above: Performed By: #### C H8 #### [facility] [address] [place] [address], Chloride [Moles/Vol] 101 mmol/L Normal 97-111 [facility] Comment on above: Performed By: #### C H8 #### [facility] [address] [place] [address], CO2 [Moles/Vol] 25 mmol/L Normal 21-30 [facility] Comment on above: Performed By: #### C H8 #### [facility] [address], [place], Creatinine [Mass/Vol] 1.47 mg/dL High 0.50-1.10 [facility] Comment on above: Performed By: #### C H8 #### [facility] [address] [place] [address], ESTIMATED GFR (CKD-EPI) 35 mL/min/1.73sqm Low >=60 [facility] Comment on above: Result Comment: 2020 [...] Inclusion of Race in Diagnosing Kidney Disease. [place] Journal of Kidney Diseases 2021;79(2):268-88.e1. 2. N Engl J Med 1 Vol. 385 Issue 19 Pages 5064-6574 Performed By: #### C H8 #### [facility] [address] [place] [address], Glucose [Mass/Vol] 258 mg/dL High 80-116 [facility] Comment on above: Performed By: #### C H8 #### [facility] [address] [place] [address], Potassium [Moles/Vol] 4.4 mmol/L Normal 3.3-5.3 [facility] Comment on above: Performed By: #### C H8 #### [facility] [address] [place] [address], Sodium [Moles/Vol] 137 mmol/L Normal 135-148 [facility] Comment on above: Performed By: #### C H8 #### [facility] [address] [place] [address], Urea nitrogen [Mass/Vol] 38 mg/dL High 8-22 [facility] Comment on above: Performed By: #### C H8 #### [facility] [address], [place], Basic metabolic 2000 panelon 09-05-2022 Anion [...] Inclusion of Race in Diagnosing Kidney Disease. [place] Journal of Kidney Diseases 202;79(2):268-88.e1. 2. N Engl J Med 2020 Vol. 385 Issue 19 Pages 2026-2842 Glucose [Mass/Vol] 258 mg/dL High 80 - 116 mg/dL [facility] Interpretation and review of laboratory results Abnormal [facility] Potassium [Moles/Vol] 4.4 mmol/L 3.3 - 5.3 mmol/L [facility] Sodium [Moles/Vol] 137 mmol/L 135 - 148 mmol/L [facility] Urea nitrogen [Mass/Vol] 38 mg/dL High 8 - 22 mg/dL [facility] CBC WITH DIFFERENTIALon 08-20 Basophils (Bld) [#/Vol] 0.08 10*3/uL Normal 0.00-0.20 [facility] Comment on above: Performed By: #### A PTT, PT #### [facility] [address] [place] [address], Basophils/100 WBC (Bld) 1.0 % Normal <=1.9 [facility] Comment on above: Performed By: #### A PTT, PT #### [facility] [address] [place] [address], Eosinophils (Bld) [#/Vol] 0.23 10*3/uL Normal 0.00-0.70 [facility] Comment on above: Performed By: #### A PTT, PT #### [facility] [address] [place] [address], Eosinophils/100 WBC (Bld) 2.7 % Normal 0.1-4.0 [facility] Comment on above: Performed By: #### A PTT, PT #### [facility] [address] [place] [address], Erythrocyte distribution width (RBC) [Ratio] 15.3 % High 11.5-14.5 [facility] Comment on above: Performed By: #### A PTT, PT #### [facility] [address] [place] [address], Hematocrit (Bld) [Volume fraction] 27.4 % Low 36.0-46.0 [facility] Comment on above: Performed By: #### A PTT, PT #### [facility] [address] [place] [address], Hemoglobin (Bld) [Mass/Vol] 9.2 g/dL Low 12.0-15.0 [facility] Comment on above: Performed By: #### A PTT, PT #### [facility] [address] [place] [address], Lymphocytes (Bld) [#/Vol] 0.86 10*3/uL Low 1.00-4.80 [facility] Comment on above: Performed By: #### A PTT, PT #### [facility] [address] [place] [address], Lymphocytes/100 WBC (Bld) 9.9 % Low 24.0-44.0 [facility] Comment on above: Performed By: #### A PTT, PT #### [facility] [address] [place] [address], MCH (RBC) [Entitic mass] 30.0 pg Normal 26.0-34.0 [facility] Comment on above: Performed By: #### A PTT, PT #### [facility] [address] [place] [address], MCHC (RBC) [Mass/Vol] 33.7 g/dL Normal 32.0-35.9 [facility] Comment on above: Performed By: #### A PTT, PT #### [facility] [address] [place] [address], MCV (RBC) [Entitic vol] 89 fL Normal 80-100 [facility] Comment on above: Performed By: #### A PTT, PT #### [facility] [address] [place] [address], MONOCYTE DISTRIBUTION WIDTH 22 High <=20 [facility] Comment on above: Performed By: #### A PTT, PT #### [facility] [address] [place] [address], Monocytes (Bld) [#/Vol] 0.69 10*3/uL Normal 0.20-1.00 [facility] Comment on above: Performed By: #### A PTT, PT #### [facility] [address] [place] [address], Monocytes/100 WBC (Bld) 7.9 % Normal 2.0-11.0 [facility] Comment on above: Performed By: #### A PTT, PT #### [facility] [address] [place] [address], Neutrophils (Bld) [#/Vol] 6.86 10*3/uL Normal 1.50-8.00 [facility] Comment on above: Performed By: #### A PTT, PT #### [facility] [address] [place] [address], Neutrophils/100 WBC (Bld) 78.6 % High 31.0-76.0 [facility] Comment on above: Performed By: #### A PTT, PT #### [facility] [address] [place] [address], Platelet mean volume (Bld) [Entitic vol] 8.0 fL Normal 7.5-11.2 [facility] Comment on above: Performed By: #### A PTT, PT #### [facility] [address] [place] [address], Platelets (Bld) [#/Vol] 192 10*3/uL Normal 150-400 [facility] Comment on above: Performed By: #### A PTT, PT #### [facility] [address], [place], RBC (Bld) [#/Vol] 3.08 10*6/uL Low 4.00-5.20 [facility] Comment on above: Performed By: #### A PTT, PT #### [facility] [address] [place], [place], WBC (Bld) [#/Vol] 8.7 10*3/uL Normal 4.5-11.5 [facility] Comment on above: Performed By: #### A PTT, PT #### [facility] [address], [place], Basophils (Bld) [#/Vol] 0.08 10*3/uL 0.00 [...] K/uL [facility] Plan Noteon 09-05-2022 Log Getter Authentication Interface Message Text Request by Trauma Service to coordinate C request for Ms Hewitt. Review of [facility] Care Everywhere, has PCP in [facility] but does not have a current visit within the last 90 days. Today is Wednesday, Sep 05, 2022 Dr Yoko Helms is PCP Ph [phone] Fx Discharge summary HHC order PT eval OT eval Cardiology Consult Will be faxed to PCP office to coordinate HHC IP Team notified of the above. Latricia Wylie, HOME HEALTH REGISTERED NURSE CDU CM Normal [facility] GLUCOSE, FINGERSTICK-IN OFFI CEon 09-05-2022 Glucose [Mass/Vol] 311 mg/dL High 80-116 [facility] Comment on above: Performed By: #### 8 [id number] #### NURSING GLUCOSE PROGRAM [address] [place], [address] Glucose [Mass/Vol] 311 mg/dL High 80 - 116 mg/dL [facility] Interpretation and review of laboratory results Abnormal [facility] Progress Noteson 09-05-2022 Log Getter Authentication Interface Message Text UTILIZATION REVIEW AND STAFF BED STATUS CHANGE [facility] Utilization Review team and medical staff reviewed the clinical care for this patient using [facility] guidelines to determine appropriate bed status. The outcome of this review and discussions is to change the status from inpatient to observation. Normal [facility] B TYPE NATRIURETIC PEPTIDEon 09-04-2022 Natriuretic peptide B (Bld) [Mass/Vol] 894.0 pg/mL High <100.0 [facility] Comment on above: Performed By: #### B PL #### [facility] [address] [place] [address], Interpretation and review of laboratory results Abnormal [facility] Natriuretic peptide B (Bld) [Mass/Vol] 894.0 pg/mL High NINF - 100.0 pg/mL [facility] COVID/INFLUENZAon 09-04-2022 INFLUENZA A Not detected Normal Not Detected [facility] Comment on above: Order Comment: Detec fern results are indicative of the presence of the SARS-CoV-2 in the specimen submitted for testing. Clinical correlation with patient history and other diagnostic information is necessary to determine patient infection status. This test is intended for use only under Emergency Use Authorization (EUA). This test was developed, and its performance characteristics determined by [facility] which is certified under CLIA as qualified to perform high complexity clinical laboratory testing. Result Comment: This assay was performed using [employer] RT[employer] technology. Performed By: #### F ESTELA/COVID #### [facility] [address] [place] [address], INFLUENZA B Not detected Normal Not Detected [facility] Comment on above: Order Comment: Detec fern results are indicative of the presence of the SARS-CoV-2 in the specimen submitted for testing. Clinical correlation with patient history and other diagnostic information is necessary to determine patient infection status. This test is intended for use only under Emergency Use Authorization (EUA). This test was developed, and its performance characteristics determined by [employer] which is certified under CLIA as qualified to perform high complexity clinical laboratory testing. Result Comment: This assay was performed using [employer] RTPCR technology. Performed By: #### F ESTELA/COVID #### [facility] [address] [place] [address], SARS-CoV-2 (COVID-19) RNA BLU+probe Ql (Unsp spec) Detected Abnormal Not Detected [facility] Comment on above: Order Comment: Detec fern results are indicative of the presence of the SARS-CoV-2 in the specimen submitted for testing. Clinical correlation with patient history and other diagnostic information is necessary to determine patient infection status. This test is intended for use only under Emergency Use Authorization (EUA). This test was developed, and its performance characteristics determined by [facility] [employer] which is certified under CLIA as qualified to perform high complexity clinical laboratory testing. Result Comment: This assay was performed using [employer] RTPCR technology. Performed By: #### F ESTELA/COVID #### [facility] [address] [place], [id number] COVID/INFLUENZAOrdered By: Shea Lane on 09-04-2022 FLUAV RNA BLU+probe Ql (Nph) Not detected Not Detected [facility] Comment on above: This assay was perfo rmed using [employer] RTPCR technology. FLUBV RNA BLU+probe Ql (Nph) Not detected Not Detected [facility] Comment on above: This assay was perfo rmed using [employer] RT[employer] technology. Interpretation and review of laboratory results Abnormal [facility] SARS-CoV-2 (COVID-19) RNA BLU+probe Ql (Unsp spec) Detected Abnormal Not Detected [facility] Comment on above: This assay was [...] developed, and its performance characteristics determined by [facility] which is certified under CLIA as qualified to perform high complexity clinical laboratory testing. [facility] CT ABD/PELVIS ED I/V COLLIN W / [...] mitral annular calcifications. MACRO: None Normal [facility] CT Abdomen and Pelvis W cont [...] 5. Severe mitral annular calcifications. MACRO: None [facility]INE W/O CONTRASTon CT L-SPINE W/O [...] or lumbar spine. MACRO: None Normal [facility] CT T-SPINE W/O CONTRASTon CT T-SPINE [...] CTA chest 09/03/2022 MACRO: None Normal [facility] CTA CHEST PULMONARY EMBOLISM W/ CTAon [...] atelectasis or scarring. MACRO: None Normal [facility] CTA Pulmonary arteries for p ulmonary embolus W contrast Zenaida 09-04-2022 CT DLP 1204.7 (mGy.cm) [facility] CT Series Entire body,Entire body,Entire body,Entire body,Entire body,Entire body [facility] CTDI VOL 5.3 (mGy),6.0 (mGy),11.1 (mGy),10.3 (mGy),10.0 (mGy),8.6 (mGy) [facility] NEGATIVE P/E Negative [facility] PHANTOM TYPE IEC Body Dosimetry Phantom,IEC Body Dosimetry Phantom,IEC Body Dosimetry Phantom,IEC Body Dosimetry Phantom,IEC Body Dosimetry Phantom,IEC Body Dosimetry Phantom [facility] EXAMINATION: CTA CHEST PULMONARY EMBOLISM W/ CTA [...] present focal atelectasis or scarring. MACRO: None [facility] Diabetes tracking panelOrder ed By: Emperatriz Dye on 09-04-2022 Average glucose Estimated from glycated hemoglobin (Bld) [Mass/Vol] 166 mg/dL [facility] HbA1c (Bld) [Mass fraction] 7.4 % High 4.0 - 5.6 % [facility] Interpretation and review of laboratory results Abnormal [facility] ED Provider Noteson 09-04-20 22 Log Getter Authentication Interface Message Text MS MM 85 [...] the floor. Tucker Bucio MD Normal [facility] EKG 12 LEAD - PERFORMon 08-20 Diagnosis Sinus bradycardia Possible Left atrial enlargement Borderline No previous ECGs available Confirmed by DIVINE GRAHAM ([id number]) on 09/04/2022 1:39:03 PM [facility] P wave Atrium by EKG 59 BPM Metr [facility] P wave axis 52 degrees [facility] P-R Interval 178 ms [facility] Q-T interval 478 ms [facility] Q-T interval corrected 473 ms [facility] Q[facility] axis 33 degrees [facility] QRS duration 104 ms [facility] T wave axis 66 degrees [facility] GLUCOSE, FINGERSTICK-IN OFFI CEon 09-04-2022 Glucose [Mass/Vol] 199 mg/dL High 80-116 [facility] Comment on above: Performed By: #### A PTT, PT #### [facility] [address] [place] [address], [phone] Glucose [Mass/Vol] 199 mg/dL High 80 - 116 mg/dL [facility] Interpretation and review of laboratory results Abnormal [facility] Glucose [Mass/Vol] 338 mg/dL High 80-116 [facility] Comment on above: Performed By: #### [id number] #### NURSING GLUCOSE PROGRAM [address] [place] [address], [phone] Glucose [Mass/Vol] 338 mg/dL High 80 - 116 mg/dL [facility] Interpretation and review of laboratory results Abnormal [facility] Glucose [Mass/Vol] 337 mg/dL High 80-116 [facility] Comment on above: Performed By: #### A PTT, PT #### [facility] [address] [place] [address], [phone] Glucose [Mass/Vol] 337 mg/dL High 80 - 116 mg/dL [facility] Interpretation and review of laboratory results Abnormal [facility] Glucose [Mass/Vol] 236 mg/dL High 80-116 [facility] Comment on above: Result Comment: Foll ow Protocol Performed By: #### 8 [id number] ####NURSING GLUCOSE [id number] [place], [address] Glucose [Mass/Vol] 236 mg/dL High 80 - 116 mg/dL [facility] Comment on above: Follow Protocol Notified ETELVINA MCMANUS MD Interpretation and review of laboratory results Abnormal [facility] H AND Mandeep 09-04-2022 Log Getter Authentication Interface Message Text Attestation signed by [...] Michael Hewitt : 1935 Sex: [facility] Date: 09/03/2022 Today's Date: 09/04/2022 Length [...] the thoracic spine CT ABD/PELVIS ED I/V COLILN W/ CONTRAST 09/03/2022 1. No traumatic injury [...] 20 (more content not included)... Normal [facility] HIGH SENSITIVITY TROPONIN IO rdered By: Petty Alegre on 09-04-2022 Troponin I.cardiac DL <= 0.01 ng/mL [Mass/Vol] 68 ng/L Critically high NINF - 15 ng/L [facility] HIGH SENSITIVITY TROPONIN Io n 09-04-2022 HS TROPONIN I 68 ng/L Critically high <=15 [facility] Comment on above: Order Comment: High Sensitivity Cardiac Troponin I (hsTnI) assay has replaced the conventional troponin assay at [facility].All results are reported in whole numbers representing ng/L.Repeat test times for ruling out acute coronary syndrome (ACS) are every 2 hours instead of every 6-8 hours.Ynknf-cy-xfdp conventional troponin (I-stat) will remain available in the Main [place] [facility] ??? results obtained by different labs [...] value in 2 hours depending on risk tszyrggaje60 ng/L or greater??? concern for ACS or [...] A PTT, PT #### [facility] [address] [place] [address], [phone] Lipid 1996 panelon 2 Cholesterol [Mass/Vol] 163 [...] [Mass ratio] 3.70 {ratio} NINF - 5.00 [facility] Interpretation and review of laboratory results Abnormal [facility] Triglyceride [Mass/Vol] 78 mg/dL NINF - 151 mg/dL [facility] Procedureson 09-04-2022 Log Getter Authentication Interface Message Text Transthoracic Echocardiographic Report Name: KASH MACIEL Interpreting MATT Quintero MD Physician: : 1935 Referring ANTHONY JOSE DO Physician: Age: 86 Rail Bonder: Cinthya Shannon RDCS Exam Date: 09/04/2022 Fellow: [...] Doctor's order(s) verified. Patient's preferred language is Portuguese . Verbal consent for left heart echo [...] physician) on 09/04/2022 12:03 PM Normal [facility] Progress Noteson 09-04-2022 Log Getter Authentication Interface Message Text Dental Consult The [...] complication, with long-term current use of insulin ([facility]) No current facility-administere d medications for [...] gel, 30 g of glucose, Buccal, PRN, Jaziel Madsen, DO insulin lispro (HumaLOG) 100 UNIT/ML injection, 2-9 Units, Subcutaneous, 3x Daily AC, Jaziel Madsen, DO, 2 Units at 09/04/22 184 acetaminophen (TYLENOL) tablet, 650 mg, Oral, Q4H PRN, Jaziel Madsen, DO losartan (COZAAR) tablet, 12.5 mg, Oral, Daily, Evitaaria, Jaziel, DO, 12.5 mg at 09/04/22 0829 aspirin EC tablet, 81 mg, Oral, Daily, Anthony, Jaziel, DO, 81 mg at 09/04/22 0828 insulin glargine (LANTUS SOLOSTAR/BASAGLAR KWIKPEN) 100 UNIT/ML PEN injection, 20 Units, Subcutaneous, At Bedtime, Rolando Madsenan, DO Allergies Allergen Reactions Codeine Hives Hydrocodone [...] has been advised to come to the [facility] for comprehensive evaluation and treatment of teeth #5-#8 Follow-up ; [facility] Oswaldo Mccall DDS Normal The QR[facility]ation Interface Message Text Plastic Surgery Update Note: Imaging and exam reviewed with Dr. Mayers this morning. Alveolar fracture is minimally displaced. Recommend inpatient dental consult for splinting of teeth for displaced teeth/malocclusion. No surgical intervention for alveolar fracture. Please call back for further concerns. Elier Camarillo MD Plastic Surgery Normal [facility] SARS-CoV-2 (COVID-19) RNA BLU+probe Ql (Unsp [...] test. For more information refer to the [employer]. Normal The Above Security Authentication Interface Message Text Internal Medicine Alf Plan Note Michael Hewitt [id number] ACUTE02/23 Today's date: 09/04/2022 Admission date: 09/03/2022 [...] at this time. Rest of plan per international editorial producer note. Jaziel Madsen DO PGY-3 [phone] Normal [facility] Log Getter Authentication Interface Message Text Incidental Findings Discussion [...] pulmonary hypertension. Franky Moffett DO Normal [facility] Troponin I.cardiac DL <= 0.0 1 ng/mL [Mass/Vol]Ordered By: Petty Alegre on 09-04-2022 Interpretation and review of laboratory results Abnormal [facility] High Sensitivity Cardiac Troponin I (hsTnI) assay has replaced the conventional troponin assay at [facility]. All results are reported in whole numbers representing ng/L. Repeat test times for ruling out acute coronary syndrome (ACS) are every 2 hours instead of every 6-8 hours. Oizwj-mk-lcal conventional troponin (I-stat) will remain available in the Main [place] [facility] results obtained by different labs or [...] 1 points, >45 ng/L = 2 points). [facility] XR Femur - left 2 Viewson EXAMINATION: [...] fracture. Left femur MACRO: None Normal [facility] XR RT FEMUR MIN 2 VIEWSon XR RT FEMUR MIN 2 VIEWS EXAMINATION: XR RT FEMUR MIN 2 VIEWSPRO/RT 09/03/2022 09:39 PM CLINICAL HISTORY: Reason for Exam: trauma, ttp COMPARISON: None FINDINGS: No acute fracture is identified. There is no radiopaque foreign body. Jvyq-xm-lfepargf hip osteoarthritis. Tricompartmental knee osteoarthritis. Atherosclerotic vascular calcifications. IMPRESSION: No acute right femur fracture. Right femur MACRO: None Normal [facility] ABO RH TYPEon 09-03-2022 ABO and Rh group Nom (Bld) Blood group A Rh(D) positive Normal [facility] Comment on above: Performed By: #### A PTT, PT #### [facility] [address] [place] [address], BASIC METABOLIC PANELon 08-20 Anion gap [Moles/Vol] 14 mmol/L Normal 10-20 [facility] Comment on above: Performed By: #### A PTT, PT #### [facility] [address] [place] [address], Calcium [Mass/Vol] 9.0 mg/dL Normal 8.4-10.4 [facility] Comment on above: Performed By: #### A PTT, PT #### [facility] [address] [place] [address], Chloride [Moles/Vol] 102 mmol/L Normal 97-111 [facility] Comment on above: Performed By: #### A PTT, PT #### [facility] [address] [place] [address], CO2 [Moles/Vol] 27 mmol/L Normal 21-30 [facility] Comment on above: Performed By: #### A PTT, PT #### S [facility] LAB[facility] [address] [place], [place], Creatinine [Mass/Vol] 1.24 mg/dL High 0.50-1.10 [facility] Comment on above: Performed By: #### A PTT, PT #### [facility] [address] [place], [place], ESTIMATED GFR (CKD-EPI) 43 mL/min/1.73sqm Low >=60 [facility] Comment on above: Result Comment: 2020 [...] Inclusion of Race in Diagnosing Kidney Disease. [place] Journal of Kidney Diseases 2021;79(2):268-88.e1. 2. N Engl J Med 2020 Vol. 385 Issue 19 Pages 9422-4680 Performed By: #### A PTT, PT #### [facility] [address] [place], [place], Glucose [Mass/Vol] 145 mg/dL High 80-116 [facility] Comment on above: Performed By: #### A PTT, PT #### [facility] [address] [place], [place], Potassium [Moles/Vol] 4.0 mmol/L Normal 3.3-5.3 [facility] Comment on above: Performed By: #### A PTT, PT #### S [facility] [address] [place], [place], Sodium [Moles/Vol] 139 mmol/L Normal 135-148 [facility] Comment on above: Performed By: #### A PTT, PT #### [facility] [address] [place], [place], Urea nitrogen [Mass/Vol] 38 mg/dL High 8-22 [facility] Comment on above: Performed By: #### A PTT, PT #### [facility] [address] [place], [place], Basic metabolic 2000 panelon 09-03-2022 Anion [...] Inclusion of Race in Diagnosing Kidney Disease. [place] Journal of Kidney Diseases 202;79(2):268-88.e1. 2. N Engl J Med 2020 Vol. 385 Issue 19 Pages 5932-7659 Glucose [Mass/Vol] 145 mg/dL High 80 - 116 mg/dL [facility] Interpretation and review of laboratory results Abnormal [facility] Potassium [Moles/Vol] 4.0 mmol/L 3.3 - 5.3 mmol/L [facility] Sodium [Moles/Vol] 139 mmol/L 135 - 148 mmol/L [facility] Urea nitrogen [Mass/Vol] 38 mg/dL High 8 - 22 mg/dL [facility] CBC AUTO DIFFon 09-03-2022 BASO # 0.1 103/ul Normal 0.0-0.1 [facility] Comment on above: Performed By: #### C VDTBH #### [facility] [address] [place] [address] Dr. Adan Rinaldi Basophils/100 WBC (Bld) 1.1 % Normal 0.2-2.0 [facility] Comment on above: Performed By: #### C VDTBH #### [facility] [address] [place] [address] Dr. Adan Rinaldi EO # 0.4 103/ul Normal 0.0-0.7 [facility] Comment on above: Performed By: #### C VDTBH #### [facility] [address] [place] [address] Dr. Adan Rinaldi Eosinophils/100 WBC (Bld) 5.3 % Normal 0.9-7.0 [facility] Comment on above: Performed By: #### C VDTBH #### [facility] [address] [place] [address] Dr. Adan Rinaldi Erythrocyte distribution width (RBC) [Ratio] 14.6 % Normal 11.0-15.0 [facility] Comment on above: Performed By: #### C VDTBH #### [facility] [address] [place] [address] Dr. Adan Rinaldi Hematocrit (Bld) [Volume fraction] 33.3 % Critically low 36.0-48.0 [facility] Comment on above: Performed By: #### C VDTBH #### [facility] [address] [place] [address] Dr. Adan Rinaldi Hemoglobin (Bld) [Mass/Vol] 10.6 g/dL Critically low 12.0-16.0 [facility] Comment on above: Performed By: #### C VDTBH #### [facility] [address] [place] [address] Dr. Adan Rinaldi IG # 0.03 10e3/ul Normal 0.00-0.03 [facility] Comment on above: Performed By: #### C VDTBH #### [facility] [address] [address] [address] Adan Rinaldi IG % 0.5 % Normal 0.0-0.5 [facility] Comment on above: Performed By: #### C VDTBH #### [facility] [address] [address] [address] Adan Rinaldi LYMPH # 1.1 103/ul Critically low 1.2-3.8 [facility] Comment on above: Performed By: #### C VDTBH #### [facility] [address] [address] [address] Adan Rinaldi Lymphocytes/100 WBC (Bld) 17.0 % Critically low 20.5-60.0 [facility] Comment on above: Performed By: #### C VDTBH #### [facility] [address] [place] [address] Dr. Adan Rinaldi MANUAL DIFF REQ NO Normal [facility] Comment on above: Performed By: #### C VDTBH #### [facility] [address] [address] [address] Adan Rinaldi MCH (RBC) [Entitic mass] 28.5 pg Normal 26.7-34.0 [facility] Comment on above: Performed By: #### C VDTBH #### [facility] [address] [address] [address] Adan Rinaldi MCHC (RBC) [Mass/Vol] 31.8 g/dL Normal 29.9-35.2 [facility] Comment on above: Performed By: #### C VDTBH #### [facility] [address] [address] [address] Adan Rinaldi MCV (RBC) [Entitic vol] 89.5 fL Normal 81.0-99.0 [facility] Comment on above: Performed By: #### C VDTBH #### [facility] [address] [place] [address] Dr. Adan Rinaldi MONO # 0.6 103/ul Normal 0.3-0.8 [facility] Comment on above: Performed By: #### C VDTBH #### [facility] [address] [address] [address] Adan Rinaldi Monocytes/100 WBC (Bld) 9.1 % Normal 1.7-12.0 [facility] Comment on above: Performed By: #### C VDTBH #### [facility] [address] [address] [address] Adan Rinaldi NEUT # 4.4 103/ul Normal 1.4-6.5 [facility] Comment on above: Performed By: #### C VDTBH #### [facility] [address] [place] [address] Dr. Adan Rinaldi Neutrophils/100 WBC (Bld) 67.0 % Normal 43.0-75.0 [facility] Comment on above: Performed By: #### C VDTBH #### [facility] [address] [place] [address] Dr. Adan Rinaldi Platelet mean volume (Bld) [Entitic vol] 9.8 fL Normal 9.5-13.5 [facility] Comment on above: Performed By: #### C VDTBH #### [facility] [address] [place] [address] Dr. Adan Rinaldi PLT 233 103/ul Normal 150-450 [facility] Comment on above: Performed By: #### C VDTBH #### [facility] [address] [place] [address] Dr. Adan Rinaldi RBC 3.72 106/ul Critically low 4.20-5.40 [facility] Comment on above: Performed By: #### C VDTBH #### [facility] [address] [place] [address] Dr. Adan Rinaldi WBC 6.6 103/ul Normal 4.0-11.0 [facility] Comment on above: Performed By: #### C VDTBH #### [facility] [address] [place] [address] Dr. Adan Rinaldi CBC WITH DIFFERENTIALon 08-20 Basophils (Bld) [#/Vol] 0.09 10*3/uL Normal 0.00-0.20 [facility] Comment on above: Performed By: #### C BCDSAT ####[facility] PATHOLOGY [id number] [place] [address], #### HB A1C ####[facility] [address] [place], [address] Basophils/100 WBC (Bld) 0.7 % Normal <=1.9 [facility] Comment on above: Performed By: #### C BCDSAT ####[facility] PATHOLOGY [id number] [place] [address], #### HB A1C ####[facility] [address] [place], [place], Eosinophils (Bld) [#/Vol] 0.18 10*3/uL Normal 0.00-0.70 [facility] Comment on above: Performed By: #### C BCDSAT ####[facility] PATHOLOGY [id number] [place] [address], #### HB A1C ####[facility] [address] [place], [place], Eosinophils/100 WBC (Bld) 1.5 % Normal 0.1-4.0 [facility] Comment on above: Performed By: #### C BCDSAT ####[facility] PATHOLOGY [id number] [place] [address], #### HB A1C ####[facility] [address] [place], [place], Erythrocyte distribution width (RBC) [Ratio] 15.4 % High 11.5-14.5 [facility] Comment on above: Performed By: #### C BCDSAT ####[facility] PATHOLOGY [id number] [place] [address], #### HB A1C ####[facility] [address] [place], [place], Hematocrit (Bld) [Volume fraction] 30.7 % Low 36.0-46.0 [facility] Comment on above: Performed By: #### C BCDSAT ####[facility] PATHOLOGY [id number] [place] [address], #### HB A1C ####[facility] [address] [place], [address] Hemoglobin (Bld) [Mass/Vol] 10.4 g/dL Low 12.0-15.0 The [facility] Comment on above: Performed By: #### C BCDSAT ####[facility] PATHOLOGY [id number] [place] [address], #### HB A1C ####[facility] [address] [place], [place], Lymphocytes (Bld) [#/Vol] 1.10 10*3/uL Normal 1.00-4.80 [facility] Comment on above: Performed By: #### C BCDSAT ####[facility] PATHOLOGY [id number] [place] [address], #### HB A1C ####[facility] [address] [place], Lymphocytes/100 WBC (Bld) 9.1 % Low 24.0-44.0 The [facility] Comment on above: Performed By: #### C BCDSAT ####[facility] PATHOLOGY [id number] [place] [address], #### HB A1C ####[facility] [address] [place] [address], MCH (RBC) [Entitic mass] 29.9 pg Normal 26.0-34.0 The [facility] Comment on above: Performed By: #### C BCDSAT ####[facility] PATHOLOGY [id number] [place] [address], #### HB A1C ####[facility] [address] [place], [place], MCHC (RBC) [Mass/Vol] 33.9 g/dL Normal 32.0-35.9 The [facility] Comment on above: Performed By: #### C BCDSAT ####[facility] PATHOLOGY [id number] [place] [address], #### HB A1C ####[facility] [address] [place], [address] MCV (RBC) [Entitic vol] 88 fL Normal 80-100 The [facility] Comment on above: Performed By: #### C BCDSAT ####[facility] PATHOLOGY [id number] [place] [address], #### HB A1C ####[facility] [address] [place], [address] MONOCYTE DISTRIBUTION WIDTH 18 Normal <=20 The [facility] Comment on above: Performed By: #### C BCDSAT ####[facility] PATHOLOGY [id number] [place] [address], #### HB A1C ####[facility] [address] [place], [place], Monocytes (Bld) [#/Vol] 0.83 10*3/uL Normal 0.20-1.00 The [facility] Comment on above: Performed By: #### C BCDSAT ####[facility] PATHOLOGY [id number] [place] [address], #### HB A1C ####[facility] [address] [place], [address] Monocytes/100 WBC (Bld) 6.9 % Normal 2.0-11.0 The [facility] Comment on above: Performed By: #### C BCDSAT ####[facility] PATHOLOGY [id number] [place] [address], #### HB A1C ####[facility] [address] [place], [address] Neutrophils (Bld) [#/Vol] 9.82 10*3/uL High 1.50-8.00 The [facility] Comment on above: Performed By: #### C BCDSAT ####[facility] PATHOLOGY [id number] [place] [address], #### HB A1C ####[facility] [address] [place], [address] Neutrophils/100 WBC (Bld) 81.7 % High 31.0-76.0 The [facility] Comment on above: Performed By: #### C BCDSAT ####[facility] PATHOLOGY [id number] [place], [place], #### HB A1C ####[facility] [address] [place], [address] Platelet mean volume (Bld) [Entitic vol] 7.7 fL Normal 7.5-11.2 The [facility] Comment on above: Performed By: #### C BCDSAT ####[facility] PATHOLOGY [id number] [place] [address], #### HB A1C ####[facility] [address] [place], Platelets (Bld) [#/Vol] 245 10*3/uL Normal 150-400 The [facility] Comment on above: Performed By: #### C BCDSAT ####[facility] PATHOLOGY [id number] [place] [address], #### HB A1C ####[facility] [address] [place], RBC (Bld) [#/Vol] 3.48 10*6/uL Low 4.00-5.20 The [facility] Comment on above: Performed By: #### C BCDSAT ####[facility] PATHOLOGY [id number] [place] [address], #### HB A1C ####[facility] [address] [place], WBC (Bld) [#/Vol] 12.0 10*3/uL High 4.5-11.5 The [facility] Comment on above: Performed By: #### C BCDSAT ####[facility] PATHOLOGY [id number] [place] [address], #### HB A1C ####[facility] [address] [place], [address] Basophils (Bld) [#/Vol] 0.09 10*3/uL 0.00 - 0.20 K/uL [facility] Basophils/100 WBC (Bld) 0.7 % NINF - [...] 12.0 10*3/uL High 4.5 - 11.5 K/uL [facility] CT CSPINE WO CONon 2 CT CSPINE WO CON CT CERVICAL SPINE WITHOUT CONTRAST HISTORY: History of fall. COMPARISON: CT cervical spine 04/10/2021. TECHNIQUE: Helical CT images were performed of the cervical spine without intravenous contrast. Dose reduction techniques were achieved by using automated exposure control and/or adjustment of mA and/or kV according to patient size and/or use of iterative reconstruction technique. 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 MINERALIZATION: Moderate osteopenia. CRANIOCERVICAL AND [...] by: АНДРЕЙ LOCK Date: 2022-09-03 16:32 Normal [facility] CT FACIAL BONES WO CONon CT [...] by: DONN ROSE Date: 2022-09-03 16:19 [address] [facility] CT HEAD WO CONon 09-03-2022 CT HEAD [...] CLIFFORD JACOBSON Date: 2022-09-03 16:07 Normal [facility] CT Lumbar spine WO contrasto n [...] lower thoracic or lumbar spine. MACRO: None [facility] CT Thoracic spine WO contras ton 09-03-2022 [...] report for CTA chest 09/03/2022 MACRO: None [facility] Consultson 09-03-2022 Log Getter Authentication Interface Message Text Dental Consult The [...] to get a comprehensive examination done at [facility]. Panoramic and full mouth series of radiographs needed for definitive diagnosis. Follow-up [facility] Dentistry office after patient gets discharged from ED Patito Sorenson DDS Normal [facility] Log Getter Authentication Interface Message Text PLASTIC SURGERY FACIAL TRAUMA CONSULT Name: Michael Hewitt : 1935 HPI This 86 year old female date of injury was 09/03/2022. The patient was transported to [facility] by EMS. Initial evaluation at [facility] [place] [facility]. Patient fell from standing at the grocery [...] attending Plastic Surgery Staff On-Call: Riana Hewitt [phone] Elier Camarillo MD Plastic Surgery PGY-6 Service pager [phone] Normal The [facility] ED Noteson 09-03-2022 Log Getter Authentication Interface Message Text /KAYLEIGH READ notified of critical Troponin value of 79. Hard copy of results given to . Normal The [facility] ED Provider Noteson 09-03-20 Log Getter Authentication Interface Message Text HISTORY OF PRESENT [...] ATTESTATION (more content not included)... Normal The [facility] ED Triage Noteson 09-03-2022 Log Getter Authentication Interface Message Text Prehospital Medications: 0.5mg dilaudid 4mg zofran Normal [facility] Log Getter Authentication Interface Message Text 86F, felt dizzy while at grocery store, fell from standing onto face Normal [facility] ETHANOL, SERUMon 09-03-2022 Ethanol [Mass/Vol] mg/dL Normal None Detected [facility] Comment on above: Performed By: #### A PTT, PT #### [facility] [address] [place] [address], Ethanol [Mass/Vol] mg/dL None Dete cted mg/dL [facility] Interpretation and review of laboratory results Normal [facility] FULL LIPID PROFILEon 022 Cholesterol [Mass/Vol] 163 mg/dL Normal <200 Th e [facility] Comment on above: Performed By: #### A PTT, PT #### [facility] [address] [place], [place], Cholesterol in LDL [Mass/Vol] 109 mg/dL Normal <111 [facility] Comment on above: Performed By: #### A PTT, PT #### [facility] [address] [place] [address], Cholesterol.total/Chol esterol in HDL [Mass ratio] 3.70 {ratio} Normal <5.00 [facility] Comment on above: Performed By: #### A PTT, PT #### [facility] [address] [place], [place], HDL CHOL 44 mg/dL Low >54 [facility] Comment on above: Performed By: #### A PTT, PT #### S [facility] [address] [place], [place], LDL/HDL 2.48 Normal <3.57 [facility] Comment on above: Performed By: #### A PTT, PT #### S [facility] [address] [place], [place], NON-HDL CHOLESTEROL 119 mg/dL Normal <130 [facility] Comment on above: Performed By: #### A PTT, PT #### S [facility] [address] [place], [place], Triglyceride [Mass/Vol] 78 mg/dL Normal <151 [facility] Comment on above: Performed By: #### A PTT, PT #### [facility] [address] [place], [place], H AND Mandeep 09-03-2022 Log Getter Authentication Interface Message Text Attestation signed by [...] and Emergency General Surgery Department of Surgery [facility] DIVISION OF ACUTE CARE SURGERY TRAUMA SURGERY HISTORY AND PHYSICAL Michael Hewitt [id number] 09/03/22 BASIC INJURY INFORMATION: Level of activation: Category 2 Trauma Mode of transport: Ambulance: EMS Mechanism of injury: Fall from ground level Complicating features: Not applicable Protective measures: Not applicable Date of Injury: 09/03/2022 Time of Injury: Today Patient origin: Transfer from outside facility HISTORY OF PRESENT INJURY: Michael Hewitt is a 86 year old female brought in by EMS from [facility] following a fall with traumatic injuries. Patient [...] status: Single Living status: Home Primary language: Portuguese Functional status: Independent Impairments: None Assistive Devices Used: None FAMILY HISTORY: No family history on file. REVIEW OF SYSTEMS: Skin: negative and bruising Eyes: negative review of symptoms Ears/Nose/Throat: negative and dental problem Respiratory: negative symptoms (no cough, hemoptysis, SOB, WILKES, PND, wheezing) Cardiovascular: negative symptoms (No CP/Pressure/ (more content not included)... Normal [facility] HEMOGLOBIN A1Con 09-03-2022 Glucose [Mass/Vol] 166 mg/dL Normal [facility] Comment on above: Performed By: #### C BCDSAT ####[facility] [id number] [place], [address]#### HB A1C ####[facility] [address] [place] [address], [id number] HbA1c (Bld) [Mass fraction] 7.4 % High 4.0-5.6 [facility] Comment on above: Performed By: #### C BCDSAT ####S PATHOLOGY [id number] [place], [address]#### HB A1C ####S [facility] [address] [place], [address] HIGH SENSITIVITY TROPONIN Io n 09-03-2022 HS TROPONIN I 79 ng/L Critically high <=15 The [facility] Comment on above: Order Comment: High Sensitivity Cardiac Troponin I (hsTnI) assay has replaced the conventional troponin assay at [facility].All results are reported in whole numbers representing ng/L.Repeat test times for ruling out acute coronary syndrome (ACS) are every 2 hours instead of every 6-8 hours.Eyyea-sl-gdhf conventional troponin (I-stat) will remain available in the Main [place] ED ??? results obtained by different labs [...] value in 2 hours depending on risk ofgfdlhquo00 ng/L or greater??? concern for ACS or [...] A PTT, PT #### [facility] [address] [place] [address], HIGH SENSITIVITY TROPONIN IO rdered By: Varsha Waite on 09-03-2022 Troponin I.cardiac DL <= 0.01 ng/mL [Mass/Vol] 79 ng/L Critically high NINF - 15 ng/L [facility] HIV 1 and 2 Ab and HIV 1 p24 Ag panel IAon 09-03-2022 HIV 1+2 Ab+HIV1 p24 Ag IA Ql Non-Reactive Nonreactive [facility] Interpretation and review of laboratory results Normal [facility] The specimen was non-reactive for HIV-1 and HIV-2 antibodies, and p24 antigen. Based on this non-reactive screen result, further reflexive testing was not indicated and was, therefore, not performed. Note: The performance of this assay has not been clinically validated in patients less than 2 years old. [facility] HIV1 HIV2 AGAB SCRNon 2021 HIV 1/2 AG/AB Non-Reactive Normal Nonreactive [facility] Comment on above: Order Comment: The s pecimen was non-reactive for HIV-1 and HIV-2 antibodies, and p24 antigen. Based on this non-reactive screen result, further reflexive testing was not indicated and was, therefore, not performed.Note: The performance of this assay has not been clinically validated in patients less than 2 years old. Performed By: #### A PTT, PT #### [facility] [address] [place] [address], LACTIC ACIDon 09-03-2022 CR LACT 1.2 mmol/L Normal 0.5-2.0 [facility] Comment on above: Performed By: #### A PTT, PT #### [facility] [address] [place] [address], LACTIC ACIDOrdered By: Leonela Gurrola on 09-03-2022 Interpretation and review of laboratory results Normal [facility] Lactate [Moles/Vol] 1.2 mmol/L 0.5 - 2. 0 mmol/L [facility] Laboratory - Blood bankon ABO and Rh group Nom (Bld) Blood group A Rh(D) positive [facility] No Panel Informationon 09-03 [facility] Interpretation and review of laboratory results Normal [facility] Radiology Study observation (narrative) [facility] Radiology Study observation (narrative) [facility] PARTIAL THROMBOPLASTIN TIMEo n 09-03-2022 aPTT Coag (Bld) [Time] 30 s Normal 25-37 Th e [facility] System Comment on above: Performed By: #### A PTT, PT #### [facility] [address] [place] [address], [id number] aPTT Coag (Bld) [Time] 30 s [facility] PROF CHEM 8 (BAS METB)on Anion gap [Moles/Vol] 13.2 mmol/L Normal [facility] Comment on above: Performed By: #### H STROPN, BMP #### [facility] [address] [address] [address] Adan Rinaldi Calcium [Mass/Vol] 9.1 mg/dL Normal 8.5-10.1 [facility] Comment on above: Performed By: #### H STROPN, BMP #### [facility] [address] [address] [address] Adan Rinaldi Chloride [Moles/Vol] 99 mmol/L Normal 98-107 [facility] Comment on above: Performed By: #### H STROPN, BMP #### [facility] [address] [address] [address] Adan Rinaldi CO2 [Moles/Vol] 26.9 mmol/L Normal 21.0-32.0 [facility] Comment on above: Performed By: #### H STROPN, BMP #### [facility] [address] [address] [address] Adan Rinaldi Creatinine [Mass/Vol] 1.50 mg/dL Critically high 0.55-1.02 [facility] Comment on above: Performed By: #### H STROPN, BMP #### [facility] [address] [place] [address] Dr. Adan Rinaldi EGFR-AF MACANESE 40 mL/min/1.73m2 Critically low >=60 [facility] Comment on above: Performed By: #### H STROPN, BMP #### [facility] [address] [place] [address] Dr. Adan Rinaldi EGFR-NON AF MACANESE 33 mL/min/1.73m2 Critically low >=60 [facility] Comment on above: Performed By: #### H STROPN, BMP #### [facility] [address] [place] [address] Dr. Adan Rinaldi Glucose [Mass/Vol] 213 mg/dL Critically high 74-106 T [facility] Comment on above: Performed By: #### H STROPN, BMP #### [facility] [address] [place] [address] Dr. Adan Rinaldi Potassium [Moles/Vol] 4.1 mmol/L Normal 3.5-5.1 [facility] Comment on above: Performed By: #### H STROPN, BMP #### [facility] [address] [place] [address] Dr. Adan Rinaldi Sodium [Moles/Vol] 135 mmol/L Critically low 136-145 Th [facility] Comment on above: Performed By: #### H STROPN, BMP #### [facility] [address] [place] [address] Dr. Adan Rinaldi Urea nitrogen [Mass/Vol] 38.0 mg/dL Critically high 7.0-18.0 [facility] Comment on above: Performed By: #### H STROPN, BMP #### [facility] [address] [place] [address] Dr. Adan Rinaldi Urea nitrogen/Creatinine [Mass ratio] 25.3 mg/mg Normal [facility] Comment on above: Performed By: #### H STROPN, BMP #### [facility] [address] [place] [address] Dr. Adan Rinaldi PROTHROMBIN TIME AND INRon 1 11-04-2021 INR Coag (PPP) [Relative time] 1.06 {INR} Normal 0.90-1.10 [facility] Comment on above: Performed By: #### A PTT, PT #### S [facility] LABORATORY [address] [place], [place], PT Coag (PPP) [Time] 12.0 s Normal 9.7-12.9 [facility] Comment on above: Performed By: #### A PTT, PT #### S [facility] [address] [place], [place], INR Coag (PPP) [Relative time] 1.06 {INR} 0.90 - 1.10 [facility] PT Coag (PPP) [Time] 12.0 s [facility] Noteson 09-03-2022 Log Getter Authentication Interface Message Text Pt a 86 yo F, CAT 2 trauma, presenting via [facility] from [facility] s/p fall forward vs her face with aveolar ridge fx and traumatic teeth extraction. Pt was at the grocery store and was dizzy at the time of the fall. Presenting to the ED is son Alek Hewitt ([phone]). SW providing emotional support and reuniting son with pt bedside. MARY ALICE Barrett, KARENA Normal [facility] TROPONIN, HIGH SENSITIVITYon 09-03-2022 HSTROP 45.9 pg/mL Normal 4.0-51.3 [facility] Comment on above: Result Comment: CUT- OFF POINTS HAVE BEEN ESTABLISHED BASED ON THE FOURTH UNIVERSAL DEFINITIONS OF MYOCARDIAL INFARCTION. THE UPPER REFERENCE LIMIT (URL) OF TROPONIN, DEFINED THE 99TH PERCENTILE OF cTnI DISTRIBUTION IN A REFERENCE POPULATION, HAS BEEN CONFIRMED THE DECISION THRESHOLD FOR MA DIAGNOSIS. Performed By: #### H STROPN, BMP #### [facility] [address] [place], [place] [address] Dr. Adan Rinaldi TYPE AND SCREENon 09-03-2022 ABO and Rh group Nom (Bld) Blood group A Rh(D) positive Normal [facility] Comment on above: Performed By: #### A PTT, PT #### [facility] [address] [place], [place], ABO and Rh group Nom (Bld) No Previous Results Normal The [facility] Comment on above: Performed By: #### A PTT, PT #### [facility] PATHOLOGY [facility]ORY [address] [place], [place], ABSC INT Negative Normal [facility] Comment on above: Performed By: #### A PTT, PT #### [facility] [address] [place], [place], ABO and Rh group Nom (Bld) No Previous Results [facility] Blood group antibody screen Ql Negative [facility] Troponin I.cardiac DL <= 0.0 1 ng/mL [Mass/Vol]Ordered By: Varsha Waite on 09-03-2022 Interpretation and review of laboratory results Abnormal [facility] High Sensitivity Cardiac Troponin I (hsTnI) assay has replaced the conventional troponin assay at [facility]. All results are reported in whole numbers representing ng/L. Repeat test times for ruling out acute coronary syndrome (ACS) are every 2 hours instead of every 6-8 hours. Ezeia-eu-giqw conventional troponin (I-stat) will remain available in the [facility] ED results obtained by different labs [...] 1 points, >45 ng/L = 2 points). [facility] XR CHEST 1 VIEW AP OR PAon [...] cardiopulmonary abnormality identified. MACRO: None Normal [facility] XR Chest Single viewon 09-03 EXAMINATION: [...] No acute cardiopulmonary abnormality identified. MACRO: None [facility] Radiology Study observation (narrative) [facility] XR Chest Single viewOrdered By: Bala Person on 09-03-2022 [facility] Work Phone: XR Femur - right 2 Viewson 1 11-04-2021 EXAMINATION: XR RT FEMUR MIN 2 VIEWSPRO/RT 09/03/2022 09:39 PM CLINICAL HISTORY: Reason for Exam: trauma, ttp COMPARISON: None FINDINGS: No acute fracture is identified. There is no radiopaque foreign body. Dwvo-ez-mzrakfak hip osteoarthritis. Tricompartmental knee osteoarthritis. Atherosclerotic vascular calcifications. IMPRESSION: No acute right femur fracture. Right femur MACRO: None RADIOLOGY Bala Person MD - 09/04/2022 EXAMINATION: XR RT FEMUR MIN 2 VIEWSPRO/RT 09/03/2022 09:39 PM CLINICAL HISTORY: Reason for Exam: trauma, ttp COMPARISON: None FINDINGS: No acute fracture is identified. There is no radiopaque foreign body. Cbul-zv-inloulvq hip osteoarthritis. Tricompartmental knee osteoarthritis. Atherosclerotic vascular calcifications. IMPRESSION: No acute right femur fracture. Right femur MACRO: None [facility] XR HIPS LINDSEY 5V W PELVISon XR [...] BLAS MASON Date: 2022-09-03 16:41 Normal [facility] PROF CHEM 8 (BAS METB)on Anion gap [Moles/Vol] 11.0 mmol/L [facility] Comment on above: Performed By: #### C BC #### [facility] [address] [address] [address] Adan Rinaldi Calcium [Mass/Vol] 8.8 mg/dL Normal 8.5-10.1 [facility] Comment on above: Performed By: #### C BC #### [facility] [address] [address] [address] Adan Rinaldi Chloride [Moles/Vol] 103 mmol/L Normal 98-107 [facility] Comment on above: Performed By: #### C BC #### [facility] [address] [address] [address] Adan Rinaldi CO2 [Moles/Vol] 29.1 mmol/L Normal 21.0-32.0 [facility] Comment on above: Performed By: #### C BC #### [facility] [address] [address] [address] Adan Rinaldi Creatinine [Mass/Vol] 1.27 mg/dL Critically high 0.55-1.02 [facility] Comment on above: Performed By: #### C BC #### [facility] [address] [address] [address] Adan Rinaldi EGFR-AF MACANESE 48 mL/min/1.73m2 Critically low >=60 [facility] Comment on above: Performed By: #### C BC #### [facility] [address] [address] [address] Adan Rinaldi EGFR-NON AF MACANESE 40 mL/min/1.73m2 Critically low >=60 [facility] Comment on above: Performed By: #### C BC #### [facility] [address] [address] [address] Adan Rinaldi Glucose [Mass/Vol] 78 mg/dL Normal 74-106 [facility] Comment on above: Performed By: #### C BC #### [facility] [address] [address] [address] Adan Rinaldi Potassium [Moles/Vol] 4.1 mmol/L Normal 3.5-5.1 [facility] Comment on above: Performed By: #### C BC #### [facility] [address] [address] [address] Adan Rinaldi Sodium [Moles/Vol] 139 mmol/L Normal 136-145 [facility] Comment on above: Performed By: #### C BC #### [facility] [address] [address] [address] Adan Rinaldi Urea nitrogen [Mass/Vol] 36.0 mg/dL Critically high 7.0-18.0 [facility] Comment on above: Performed By: #### C BC #### [facility] [address] [address] [address] Adan Rinaldi Urea nitrogen/Creatinine [Mass ratio] 28.3 mg/mg Normal [facility] Comment on above: Performed By: #### C BC #### [facility] [address] [place] [address] Dr. Adan Rinaldi PROF CHEM 8 (BAS METB)on Anion gap [Moles/Vol] 10.4 mmol/L Normal [facility] Comment on above: Performed By: #### C BC #### [facility] [address] [address] [address] Adan Rinaldi Calcium [Mass/Vol] 8.8 mg/dL Normal 8.5-10.1 [facility] Comment on above: Performed By: #### C BC #### [facility] [address] [address] [address] Adan Rinaldi Chloride [Moles/Vol] 104 mmol/L Normal 98-107 [facility] Comment on above: Performed By: #### C BC #### [facility] [address] [address] [address] Adan Rinaldi CO2 [Moles/Vol] 26.9 mmol/L Normal 21.0-32.0 [facility] Comment on above: Performed By: #### C BC #### [facility] [address] [place] [address] Dr. Adan Rinaldi Creatinine [Mass/Vol] 1.13 mg/dL Critically high 0.55-1.02 [facility] Comment on above: Performed By: #### C BC #### [facility] [address] [place], [place] [address] Dr. Adan Rinaldi EGFR-AF MACANESE 55 mL/min/1.73m2 Critically low >=60 [facility] Comment on above: Performed By: #### C BC #### [facility] [address] [address] [address] Adan Rinaldi EGFR-NON AF MACANESE 46 mL/min/1.73m2 Critically low >=60 [facility] Comment on above: Performed By: #### C BC #### [facility] [address] [address] [address] Adan Rinaldi Glucose [Mass/Vol] 164 mg/dL Critically high 74-106 [facility] Comment on above: Performed By: #### C BC #### [facility] [address] [address] [address] Adan Rinaldi Potassium [Moles/Vol] 4.3 mmol/L Normal 3.5-5.1 [facility] Comment on above: Performed By: #### C BC #### [facility] [address] [address] [address] Adan Rinaldi Sodium [Moles/Vol] 137 mmol/L Normal 136-145 [facility] Comment on above: Performed By: #### C BC #### [facility] [address] [address] [address] Adan Rinaldi Urea nitrogen [Mass/Vol] 29.0 mg/dL Critically high 7.0-18.0 [facility] Comment on above: Performed By: #### C BC #### [facility] [address] [place], [place] [address] Dr. Adan Rinaldi Urea nitrogen/Creatinine [Mass ratio] 25.7 mg/mg Normal [facility] Comment on above: Performed By: #### C BC #### [facility] [address] [place], [place] [address] Dr. Adan Rinaldi [facility] 05-28-2022 [facility] Department of Radiology [address] [place] [id number] Patient Name: ELIZ HEWITT : 1935 Sex: F Age: Race: White Pt. Location: 85 Patient Status: O Ordered Date: 05/28/2022 10:05:00 [...] stable. Electronically signed: Henrry Mast. Transcribed by: [email or web address], User Resident: Electronically Signed by: HENRRY MAST @ 05/28/2022 10:23 AM Normal The [facility] Comment on above: Order Comment: Evalu ate WOUND CULTUREon 05-23-2022 Bacteria identified Aer cx Nom (Unsp spec) Final report Normal [facility] Comment on above: Performed By: #### C XWND #### [facility] [address] [place], [place] [address] Dr. Adan Rinaldi Result 1 Comment Normal [facility] Comment on above: Result Comment: No g rowth in 36 - 48 hours. Performed By: #### C XWND #### [facility] [address] [place], [place] [address] Dr. Adan Rinaldi HUMERUS LEFT 05-21-2022 HUMERUS LEFT [facility] Department of Radiology [address] [place] [phone] Patient Name: ELIZ HEWITT : 1935 [...] effusion. Electronically signed: DAMON BOYLE. Transcribed by: [email or web address], User Resident: Electronically Signed by: DAMON BOYLE @ 05/21/2022 03:39 PM Normal [facility] Comment on above: Order Comment: No: D o not add to previous draw CBC AUTO DIFFon 05-20-2022 BASO # 0.1 103/ul Normal 0.0-0.1 [facility] Comment on above: Performed By: #### C VDTBH #### [facility] [address] [place] [address] Dr. Adan Rinaldi Basophils/100 WBC (Bld) 0.8 % Normal 0.2-2.0 [facility] Comment on above: Performed By: #### C VDTBH #### [facility] [address] [place] [address] Dr. Adan Rinaldi EO # 0.2 103/ul Normal 0.0-0.7 [facility] Comment on above: Performed By: #### C VDTBH #### [facility] [address] [place] [address] Dr. Adan Rinaldi Eosinophils/100 WBC (Bld) 2.0 % Normal 0.9-7.0 [facility] Comment on above: Performed By: #### C VDTBH #### [facility] [address] [place] [address] Dr. Adan Rinaldi Erythrocyte distribution width (RBC) [Ratio] 14.4 % Normal 11.0-15.0 [facility] Comment on above: Performed By: #### C VDTBH #### [facility] [address] [place] [address] Dr. Adan Rinaldi Hematocrit (Bld) [Volume fraction] 23.1 % Critically low 36.0-48.0 [facility] Comment on above: Performed By: #### C VDTBH #### [facility] [address] [address] [address] Adan Rinaldi Hemoglobin (Bld) [Mass/Vol] 7.4 g/dL Critically low 12.0-16.0 [facility] Comment on above: Performed By: #### C VDTBH #### [facility] [address] [address] [address] Adan Rinaldi IG # 0.04 10e3/ul Critically high 0.00-0.03 [facility] [place] [facility] Comment on above: Performed By: #### C VDTBH #### [facility] [address] [place] [address] Dr. Adan Rinaldi IG % 0.5 % Normal 0.0-0.5 [facility] Comment on above: Performed By: #### C VDTBH #### [facility] [address] [place] [address] Dr. Adan Rinaldi LYMPH # 1.1 103/ul Critically low 1.2-3.8 [facility] Comment on above: Performed By: #### C VDTBH #### [facility] [address] [place], [place] [address] Dr. Adan Rinaldi Lymphocytes/100 WBC (Bld) 12.0 % Critically low 20.5-60.0 [facility] Comment on above: Performed By: #### C VDTBH #### [facility] [address] [place] [address] Dr. Adan Rinaldi MANUAL DIFF REQ NO Normal [facility] Comment on above: Performed By: #### C VDTBH #### [facility] [address] [address] [address] Adan Rinaldi MCH (RBC) [Entitic mass] 28.7 pg Normal 26.7-34.0 [facility] Comment on above: Performed By: #### C VDTBH #### [facility] [address] [place] [address] Dr. Adan Rinaldi MCHC (RBC) [Mass/Vol] 32.0 g/dL Normal 29.9-35.2 [facility] Comment on above: Performed By: #### C VDTBH #### [facility] [address] [place] [address] Dr. Adan Rinaldi MCV (RBC) [Entitic vol] 89.5 fL Normal 81.0-99.0 [facility] Comment on above: Performed By: #### C VDTBH #### [facility] [address] [place] [address] Dr. Adan Rinaldi MONO # 1.0 103/ul Critically high 0.3-0.8 [facility] Comment on above: Performed By: #### C VDTBH #### [facility] [address] [place] [address] Dr. Adan Rinaldi Monocytes/100 WBC (Bld) 11.6 % Normal 1.7-12.0 [facility] Comment on above: Performed By: #### C VDTBH #### [facility] [address] [place] [address] Dr. Adan Rinaldi NEUT # 6.5 103/ul Normal 1.4-6.5 [facility] Comment on above: Performed By: #### C VDTBH #### [facility] [address] [place] [address] Dr. Adan Rinaldi Neutrophils/100 WBC (Bld) 73.1 % Normal 43.0-75.0 [facility] Comment on above: Performed By: #### C VDTBH #### [facility] [address] [place] [address] Dr. Adan Rinaldi Platelet mean volume (Bld) [Entitic vol] 9.7 fL Normal 9.5-13.5 [facility] Comment on above: Performed By: #### C VDTBH #### [facility] [address] [place] [address] Dr. Adan Rinaldi PLT 298 103/ul Normal 150-450 [facility] Comment on above: Performed By: #### C VDTBH #### [facility] [address] [place] [address] Dr. Adan Rinaldi RBC 2.58 106/ul Critically low 4.20-5.40 [facility] Comment on above: Performed By: #### C VDTBH #### [facility] [address] [place] [address] Dr. Adan Rinaldi WBC 8.9 103/ul Normal 4.0-11.0 [facility] Comment on above: Performed By: #### C VDTBH #### [facility] [address] [place] [address] Dr. Adan Rinaldi CULTURE BLOODon 05-20-2022 Microscopic examination of blood, culture Culture Observations: NO GROWTH AT 5 DAYS. Normal [facility] Comment on above: Performed By: #### B LDCX2 #### [facility] [address] [place] [address] Dr. Adan Rinaldi Microscopic examination of blood, culture Culture Observations: NO GROWTH AT 5 DAYS. Normal [facility] Comment on above: Performed By: #### P OCGLUC #### [facility] [address] [place] [address] Dr. Adan Rinaldi Covid-19 PCR ([facility])on 04-22 SARS-CoV-2 (COVID-19) RNA BLU+probe Ql (Unsp spec) Not detected Normal NOT DETECTED [facility] Comment on above: Result Comment: When [...] for this test is supported by the Director [employer] of Health and Human Service's declaration that [...] used). Performed By: #### C VDTBH #### [facility] [address] [address] [address] Adan Rinaldi ER URINE PROFILEon 2 Bilirubin Ql (U) Negative Normal NEGATIVE [facility] Comment on above: Performed By: #### H STROPN, BMP #### [facility] [address] [address] [address] Adan Rinaldi Clarity (U) CLEAR Normal CLEAR [facility] Comment on above: Performed By: #### H STROPN, BMP #### [facility] [address] [address] [address] Adan Rinaldi Color (U) LT. YELLOW Normal YELLOW [facility] Comment on above: Performed By: #### H STROPN, BMP #### [facility] [address] [place] [address] Dr. Adan JONES A micrscopic examination will be performed if indicated. Normal [facility] Comment on above: Performed By: #### H STROPN, BMP #### [facility] [address] [place] [address] Dr. Adan Rinaldi Glucose Ql (U) Negative Normal NEGATIVE [facility] Comment on above: Performed By: #### H STROPN, BMP #### [facility] [address] [address] [address] Adan Rinaldi Hemoglobin Ql (U) Negative Normal NEGATIVE [facility] [place] [facility] Comment on above: Performed By: #### H STROPN, BMP #### [facility] [address] [address] [address] Adan Rinaldi Ketones Ql (U) Negative Normal NEGATIVE [facility] Comment on above: Performed By: #### H STROPN, BMP #### [facility] [address] [address] [address] Adan Rinaldi LEUKOCYTES Negative Normal NEGATIVE [facility] Comment on above: Performed By: #### H STROPN, BMP #### [facility] [address] [address] [address] Adan Rinaldi Nitrite Ql (U) Negative Normal NEGATIVE [facility] Comment on above: Performed By: #### H STROPN, BMP #### [facility] [address] [address] [address] Adan Rinaldi pH (U) 5.5 [pH] Normal 5-9 [facility] Comment on above: Performed By: #### H JACQUELINEPN, BMP #### [facility] [address] [place] [address] Dr. Adan Rinaldi SPEC GRAVITY <=1.005 Abnormal 1.005-<=1.025 [facility] Comment on above: Performed By: #### H JACQUELINEPN, BMP #### [facility] [address] [place] [address] Dr. Adan Rinaldi UA PROTEIN Negative Normal NEGATIVE/ TRACE [facility] Comment on above: Performed By: #### H LYNNE, BMP #### [facility] [address] [place] [address] Dr. Adan Rinaldi UR MICRO IND NOT INDICATED Normal [facility] Comment on above: Performed By: #### H LYNNE, BMP #### [facility] [address] [place] [address] Dr. Adan Rinaldi Urobilinogen Qn (U) 0.2 {Manny'U}/dL Normal 0.2 - 1. 0 [facility] Comment on above: Performed By: #### H LYNNE, BMP #### [facility] [address] [place] [address] Dr. Adan Rinaldi LACTATE/LACTIC ACIDon 2021 Lactate [Moles/Vol] 1.5 mmol/L Normal 0.4-1.9 [place] Comment on above: Performed By: #### C VDTBH #### [facility] [address] [place] [address] Dr. Adan Rinaldi Lactate [Moles/Vol] 2.0 mmol/L Critically high 0.4-1.9 [facility] Comment on above: Performed By: #### C BC #### [facility] [address] [place] [address] Dr. Adan Rinaldi PROF 14(COMP METB)on 022 Albumin [Mass/Vol] 2.7 g/dL Critically low 3.4-5.0 [facility] Comment on above: Performed By: #### H STROPN, BMP #### [facility] [address] [place] [address] Dr. Adan Rinaldi Albumin/Globulin [Mass ratio] 0.7 {ratio} Normal [facility] Comment on above: Performed By: #### H STROPN, BMP #### [facility] [address] [address] [address] Adan Rinaldi ALP [Catalytic activity/Vol] 85 U/L Normal 46-116 [facility] Comment on above: Performed By: #### H STROPN, BMP #### [facility] [address] [place] [address] Dr. Adan Rinaldi ALT [Catalytic activity/Vol] 13 U/L Critically low 14-59 [facility] Comment on above: Performed By: #### H STROPN, BMP #### [facility] [address] [place] [address] Dr. Adan Rinaldi Anion gap [Moles/Vol] 11.8 mmol/L Normal [facility] Comment on above: Performed By: #### H STROPN, BMP #### [facility] [address] [place] [address] Dr. Adan Rinaldi AST [Catalytic activity/Vol] 21 U/L Normal 15-37 [facility] Comment on above: Performed By: #### H STROPN, BMP #### [facility] [address] [address] [address] Adan Rinaldi Bilirubin [Mass/Vol] 0.7 mg/dL Normal 0.2-1.0 [facility] Comment on above: Performed By: #### H STROPN, BMP #### [facility] [address] [address] [address] Adan Rinaldi Calcium [Mass/Vol] 8.6 mg/dL Normal 8.5-10.1 [facility] Comment on above: Performed By: #### H STROPN, BMP #### [facility] [address] [address] [address] Adan Rinaldi Chloride [Moles/Vol] 102 mmol/L Normal 98-107 [facility] Comment on above: Performed By: #### H STROPN, BMP #### [facility] [address] [place] [address] Dr. Adan Rinaldi CO2 [Moles/Vol] 27.5 mmol/L Normal 21.0-32.0 [facility] Comment on above: Performed By: #### H STROPN, BMP #### [facility] [address] [place] [address] Dr. Adan Rinaldi Creatinine [Mass/Vol] 1.59 mg/dL Critically high 0.55-1.02 [facility] Comment on above: Performed By: #### H STROPN, BMP #### [facility] [address] [place] [address] Dr. Adan Rinaldi EGFR-AF MACANESE 37 mL/min/1.73m2 Critically low >=60 [facility] Comment on above: Performed By: #### H STROPN, BMP #### [facility] [address] [place] [address] Dr. Adan Rinaldi EGFR-NON AF MACANESE 31 mL/min/1.73m2 Critically low >=60 [facility] Comment on above: Performed By: #### H STROPN, BMP #### [facility] [address] [place] [address] Dr. Adan Rinaldi Globulin (S) [Mass/Vol] 4.1 g/dL Normal [facility] Comment on above: Performed By: #### H STROPN, BMP #### [facility] [address] [place] [address] Dr. Adan Rinaldi Glucose [Mass/Vol] 122 mg/dL Critically high 74-106 [facility] Comment on above: Performed By: #### H STROPN, BMP #### [facility] [address] [place] [address] Dr. Adan Rinaldi Potassium [Moles/Vol] 4.3 mmol/L Normal 3.5-5.1 [facility] Comment on above: Performed By: #### H STROPN, BMP #### [facility] [address] [place], [place] [id number] Dr. Adan Rinaldi Protein [Mass/Vol] 6.8 g/dL Normal 6.4-8.2 [facility] Comment on above: Performed By: #### H STROPN, BMP #### [facility] [address] [place] [address] Dr. Adan Rinaldi Sodium [Moles/Vol] 137 mmol/L Normal 136-145 [facility] Comment on above: Performed By: #### H STROPN, BMP #### [facility] [address] [place] [address] Dr. Adan Rinaldi Urea nitrogen [Mass/Vol] 62.0 mg/dL Critically high 7.0-18.0 [facility] Comment on above: Performed By: #### H STROPN, BMP #### [facility] [address] [place] [address] Dr. Adan Rinaldi Urea nitrogen/Creatinine [Mass ratio] 39.0 mg/mg Normal [facility] Comment on above: Performed By: #### H STROPN, BMP #### [facility] [address] [place] [address] Dr. Adan Rinaldi PROF CHEM 8 (BAS METB)on Anion gap [Moles/Vol] 14.7 mmol/L Normal [facility] Comment on above: Performed By: #### H STROPN, BMP #### [facility] [address] [place] [address] Dr. Adan Rinaldi Calcium [Mass/Vol] 8.2 mg/dL Critically low 8.5-10.1 [facility] Comment on above: Performed By: #### H STROPN, BMP #### [facility] [address] [place] [address] Dr. Adan Rinaldi Chloride [Moles/Vol] 102 mmol/L Normal 98-107 [facility] Comment on above: Performed By: #### H STROPN, BMP #### [facility] [address] [place] [address] Dr. Adan Rinaldi CO2 [Moles/Vol] 24.0 mmol/L Normal 21.0-32.0 [facility] Comment on above: Performed By: #### H STROPN, BMP #### [facility] [address] [address] [address] Adan Rinaldi Creatinine [Mass/Vol] 1.74 mg/dL Critically high 0.55-1.02 [facility] Comment on above: Performed By: #### H STROPN, BMP #### [facility] [address] [address] [address] Adan Rinaldi EGFR-AF MACANESE 34 mL/min/1.73m2 Critically low >=60 [facility] Comment on above: Performed By: #### H STROPN, BMP #### [facility] [address] [address] [address] Adan Rinaldi EGFR-NON AF MACANESE 28 mL/min/1.73m2 Critically low >=60 [facility] Comment on above: Performed By: #### H STROPN, BMP #### [facility] [address] [place] [address] Dr. Adan Rinaldi Glucose [Mass/Vol] 160 mg/dL Critically high 74-106 [facility] Comment on above: Performed By: #### H STROPN, BMP #### [facility] [address] [place] [address] Dr. Adan Rinaldi Potassium [Moles/Vol] 3.7 mmol/L Normal 3.5-5.1 [facility] Comment on above: Performed By: #### H STROPN, BMP #### [facility] [address] [place] [address] Dr. Adan Rinaldi Sodium [Moles/Vol] 137 mmol/L Normal 136-145 [facility] Comment on above: Performed By: #### H STROPN, BMP #### [facility] [address] [address] [address] Adan Rinaldi Urea nitrogen [Mass/Vol] 51.0 mg/dL Critically high 7.0-18.0 [facility] Comment on above: Performed By: #### H STROPN, BMP #### [facility] [address] [place] [address] Dr. Adan Rinaldi Urea nitrogen/Creatinine [Mass ratio] 29.3 mg/mg Normal [facility] Comment on above: Performed By: #### H STRORIKY, [facility] #### [facility] [address] [place], [place] [address] Dr. Adan Rinaldi APTTon 05-16-2022 aPTT Coag (Bld) [Time] 29.9 s Normal 25.0-35.0 Th e [facility] Comment on above: Order Comment: No: [...] THIS PURPOSE. Performed By: #### 9 [id number], [id number] #### [facility] [address] [place] [address], [facility] BASIC METABOLIC PANELon 08- Calcium [Mass/Vol] 8.2 mg/dL Low 8.6-10.3 [facility] Comment on above: Order Comment: No: D o not add to previous draw Performed By: #### 0 0071, [id number] #### [facility] [address] [place] [address], [place] Chloride [Moles/Vol] 103 mmol/L Normal 98-107 [facility] Comment on above: Order Comment: No: D o not add to previous draw Performed By: #### 0 0071, [id number] #### [facility] [address] [place] [address], [place] CO2 [Moles/Vol] 22 mmol/L Normal 21-31 [facility] Comment on above: Order Comment: No: D o not add to previous draw Performed By: #### 0 0071, [id number] #### [facility] [address] [place] [address], [place] Creatinine [Mass/Vol] 1.33 mg/dL High 0.60-1.20 [facility] Comment on above: Order Comment: No: D o not add to previous draw Performed By: #### 0 0071, [id number] #### [facility] [address] [place] [address], [facility] EGFR 39 ml/min/1.73sq m Abnormal >60 [facility] Comment on above: Order Comment: No: D o not add to previous draw Result Comment: The [facility]'s estimated glomerular filtration rate (eGFR) will [...] of individuals. Performed By: #### 0 0071, [id number] #### [facility] [address] [place] [address], [facility] Glucose [Mass/Vol] 140 mg/dL High 70-100 [facility] Comment on above: Order Comment: No: D o not add to previous draw Performed By: #### 0 0071, [id number] #### [facility] [address] [place] [address], [facility] Potassium [Moles/Vol] 5.5 mmol/L High 3.5-5.1 [facility] Comment on above: Order Comment: No: D o not add to previous draw Performed By: #### 0 0071, [id number] #### [facility] [address] [place] [address], [facility] Sodium [Moles/Vol] 133 mmol/L Low 136-145 [facility] Comment on above: Order Comment: No: D o not add to previous draw Performed By: #### 0 0071, [id number] #### [facility] [address] [facility] [place] [address], [facility] Urea nitrogen [Mass/Vol] 32 mg/dL High 7-25 The [facility] Comment on above: Order Comment: No: D o not add to previous draw Performed By: #### 0 0071, [id number] #### [facility] [address] [place] [address], [facility] CBC W/DIFFon 05-16-2022 ABS IMM GRANS 0.1 10*3/uL Normal 0.0-0.2 The [facility] Comment on above: Order Comment: No: D o not add to previous draw Performed By: #### 5 0103 #### [facility] [address] [facility] [place] [address], [facility] ABS NEUTROPHILS 8.7 10*3/uL High 1.6-7.6 The [facility] Comment on above: Order Comment: No: D o not add to previous draw Performed By: #### 5 0103 #### [facility] [address] [facility] [place] [address], [facility] Basophils (Bld) [#/Vol] 0.0 10*3/uL Normal 0.0-0.2 The [facility] Comment on above: Order Comment: No: D o not add to previous draw Performed By: #### 5 0103 #### [facility] [address] [facility] [place] [address], [facility] Basophils/100 WBC (Bld) 0.3 % Normal 0.0-1.0 The [facility] Comment on above: Order Comment: No: D o not add to previous draw Performed By: #### 5 0103 #### [facility] [address] [facility] [place] [address], [facility] Eosinophils (Bld) [#/Vol] 0.0 10*3/uL Normal 0.0-0.5 The [facility] Comment on above: Order Comment: No: D o not add to previous draw Performed By: #### 5 0103 #### [facility] [address] [place] [address], [facility] Eosinophils/100 WBC (Bld) 0.0 % Normal 0.0-6.0 The [facility] Comment on above: Order Comment: No: D o not add to previous draw Performed By: #### 5 0103 #### [facility] [address] [place] [address], [facility] Erythrocyte distribution width (RBC) [Ratio] 14.3 % Normal 11.5-15.0 The [facility] Comment on above: Order Comment: No: D o not add to previous draw Performed By: #### 5 0103 #### [facility] [address] [place] [address], [facility] Hematocrit (Bld) [Volume fraction] 26.9 % Low 36.0-45.0 The [facility] Comment on above: Order Comment: No: D o not add to previous draw Performed By: #### 5 0103 #### [facility] [address] [place] [address], [facility] Hemoglobin (Bld) [Mass/Vol] 8.5 g/dL Low 12.0-15.0 The [facility] Comment on above: Order Comment: No: D o not add to previous draw Performed By: #### 5 0103 #### [facility] [address] [place] [id number], [facility] IMMATURE GRANS 0.5 % Normal 0.0-1.0 The [facility] Comment on above: Order Comment: No: D o not add to previous draw Performed By: #### 5 0103 #### [facility] [address] [place] [address], [facility] Lymphocytes (Bld) [#/Vol] 1.0 10*3/uL Low 1.2-4.0 The [facility] Comment on above: Order Comment: No: D o not add to previous draw Performed By: #### 5 0103 #### [facility] [address] [place] [address], [facility] Lymphocytes/100 WBC (Bld) 8.9 % Low 20.0-45.0 The [facility] Comment on above: Order Comment: No: D o not add to previous draw Performed By: #### 5 0103 #### [facility] [address] [place] [address], [facility] MCH (RBC) [Entitic mass] 28.7 pg Normal 27.0-33.0 The [facility] Comment on above: Order Comment: No: D o not add to previous draw Performed By: #### 5 0103 #### [facility] [address] [place] [address], [facility] MCHC (RBC) [Mass/Vol] 31.6 g/dL Low 32.0-35.0 The [facility] Comment on above: Order Comment: No: D o not add to previous draw Performed By: #### 5 0103 #### [facility] [address] [place] [address], [facility] MCV (RBC) [Entitic vol] 90.9 fL Normal 82.0-98.0 The [facility] Comment on above: Order Comment: No: D o not add to previous draw Performed By: #### 5 3 #### [facility] [address] [place] [address], [facility] Monocytes (Bld) [#/Vol] 0.9 10*3/uL Normal 0.1-1.0 The [facility] Comment on above: Order Comment: No: D o not add to previous draw Performed By: #### 5 0103 #### [facility] [address] [place] [address], [facility] MONOS 8.7 % Normal 5.0-12.0 The [facility] Comment on above: Order Comment: No: D o not add to previous draw Performed By: #### 5 3 #### [facility] [address] [place] [address], [place] Neutrophils/100 WBC (Bld) 81.6 % High 40.0-72.0 The [facility] Comment on above: Order Comment: No: D o not add to previous draw Performed By: #### 5 0103 #### [facility] [address] [place] [address], [place] Nucleated RBC/100 WBC (Bld) [Ratio] 0 % Normal 0-0 [facility] Comment on above: Order Comment: No: D o not add to previous draw Performed By: #### 5 0103 #### [facility] [address] [place] [address], [place] PLAT CNT 227 10*3/uL Normal 150-400 [facility] Comment on above: Order Comment: No: D o not add to previous draw Performed By: #### 5 0103 #### [facility] [address] [place] [address], [place] RBC (Bld) [#/Vol] 2.96 10*6/uL Low 3.80-5.00 [facility] Comment on above: Order Comment: No: D o not add to previous draw Performed By: #### 5 0103 #### [facility] [address] [place] [address], [place] WBC (Bld) [#/Vol] 10.63 10*3/uL High 4.00-10.60 [facility] Comment on above: Order Comment: No: D o not add to previous draw Performed By: #### 5 0103 #### [facility] [address] [place] [address], [place] MAGNESIUM BLOODon 05-16-2022 Magnesium [Mass/Vol] 2.0 mg/dL Normal 1.9-2.7 [facility] Comment on above: Order Comment: No: D o not add to previous draw Performed By: #### 0 0071, [id number] #### [facility] [address] [place] [address], [facility] POC GLUCOSE LABon 05-16-2022 Glucose [Mass/Vol] 205 mg/dL High 70-100 The [facility] Comment on above: Performed By: #### 5 0103 #### [facility] [address] [place] [address], [facility] Glucose [Mass/Vol] 175 mg/dL High 70-100 [facility] Comment on above: Performed By: #### 5 0103 #### [facility] [address] [place] [address], [facility] POTASSIUM BLOODon 05-16-2022 Potassium [Moles/Vol] 4.9 mmol/L Normal 3.5-5.1 [facility] Comment on above: Order Comment: No: D o not add to previous draw Performed By: #### 4 1406 #### [facility] [address] [place] [address], [facility] PROTHROMBIN TIMEon INR Coag (PPP) [Relative time] 1.16 {INR} Normal 0.91-1.16 [facility] Comment on above: Order Comment: No: [...] CHEST 1995;[id number]. Performed By: #### 9 2096, [id number] #### [facility] [address] PT Coag (PPP) [Time] 14.8 s Normal 12.3-14.8 [facility] Comment on above: Order Comment: No: D o not add to previous draw Result Comment: ALL RESULTS MUST BE INTERPRETED WITH RESPECT TO BLOOD DRAWING ARTIFACT OR DILUTION ERROR OF ANTICOAGULANT AT THE TIME OF SAMPLING. Performed By: #### 9 2096, 04525 #### [facility] [address] *MRSA/MSSA DNA NASALon 05-15 *MRSA/MSSA DNA NASAL Clinical Report: (D ) Specimen/Source: NASAL SWAB/NARES Collected: 05/15/2022 08:30 Status: Final Last Updated: 05/15/2022 14:49 MSSA DNA (Final) Negative MRSA DNA (Final) Negative Normal [facility] Comment on above: Performed By: #### 9 2096, [id number] #### [facility] [address] HEMATOCRITon 05-15-2022 Hematocrit (Bld) [Volume fraction] 29.3 % Low 36.0-45.0 [facility] Comment on above: Order Comment: No: D o not add to previous draw Performed By: #### 9 2096, [id number] #### [facility] [address] [place] [address], [facility] HEMOGLOBINon 05-15-2022 Hemoglobin (Bld) [Mass/Vol] 9.7 g/dL Low 12.0-15.0 [facility] Comment on above: Order Comment: No: D o not add to previous draw Performed By: #### 9 2096, 51405 #### [address] [place] [address], [facility] HUMERUS LEFTon 05-15-2022 HUMERUS LEFT [facility] Department of Radiology [address] [place] [id number] Patient Name: ELIZ HEWITT : 1935 [...] fluoroscopy Electronically signed: Maribell Draper. Transcribed by: [email or web address], User Resident: Electronically Signed by: MARIBELL DRAPER @ 05/15/2022 11:44 AM Normal [facility] Comment on above: Order Comment: No: D o not add to previous draw Operative Reporton 2 Operative Report MR#: [id number] S [facility] Pt. Name: Eliz Hewitt Room #: [...] Anesthesia record. SPECIMENS: None. COMPLICATIONS: None. IMPLANTS: Independence proximal humerus plate with corresponding cortical and [...] fracture reduction. We then placed our 10-hole Independence proximal humerus plate and pinned this into [...] immediately available to assist. Date Dict: 05/15/2022/10:57 Shea/David Pino MD Date Trans: 05/15/2022 06:12 P/blancao [id number] Normal [facility] POC GLUCOSE LABon 05-15-2022 Glucose [Mass/Vol] 77 mg/dL Normal 70-100 [facility] Comment on above: Performed By: #### 5 0103 #### [facility] [address] [place] [address], [facility] Glucose [Mass/Vol] 73 mg/dL Normal 70-100 [facility] Comment on above: Performed By: #### 5 0103 #### [facility] [address] [place] [address], [facility] Glucose [Mass/Vol] 63 mg/dL Low 70-100 [facility] Comment on above: Performed By: #### 5 0103 #### [facility] [address] [place] [address], [facility] CBC AUTO DIFFon 05-13-2022 BASO # 0.1 103/ul Normal 0.0-0.1 [facility] Comment on above: Performed By: #### C VDTBH #### [facility] [address] [place] [address] Dr. Adan Rinaldi Basophils/100 WBC (Bld) 1.0 % Normal 0.2-2.0 [facility] Comment on above: Performed By: #### C VDTBH #### [facility] [address] [place] [address] Dr. Adan Rinaldi EO # 0.5 103/ul Normal 0.0-0.7 [facility] Comment on above: Performed By: #### C VDTBH #### [facility] [address] [place] [address] Dr. Adan Rinaldi Eosinophils/100 WBC (Bld) 6.9 % Normal 0.9-7.0 [facility] Comment on above: Performed By: #### C VDTBH #### [facility] [address] [place] [address] Dr. Adan Rinaldi Erythrocyte distribution width (RBC) [Ratio] 14.2 % Normal 11.0-15.0 [facility] Comment on above: Performed By: #### C VDTBH #### [facility] [address] [place] [address] Dr. Adan Rinaldi Hematocrit (Bld) [Volume fraction] 31.1 % Critically low 36.0-48.0 [facility] Comment on above: Performed By: #### C VDTBH #### [facility] [address] [place] [address] Dr. Adan Rinaldi Hemoglobin (Bld) [Mass/Vol] 9.9 g/dL Critically low 12.0-16.0 [facility] Comment on above: Performed By: #### C VDTBH #### [facility] [address] [place] [address] Dr. Adan Rinaldi IG # 0.02 10e3/ul Normal 0.00-0.03 [facility] Comment on above: Performed By: #### C VDTBH #### [facility] [address] [place] [address] Dr. Adan Rinaldi IG % 0.3 % Normal 0.0-0.5 [facility] Comment on above: Performed By: #### C VDTBH #### [facility] [address] [place] [address] Dr. Adan Rinaldi LYMPH # 1.6 103/ul Normal 1.2-3.8 [facility] Comment on above: Performed By: #### C VDTBH #### [facility] [address] [place] [address] Dr. Adan Rinaldi Lymphocytes/100 WBC (Bld) 22.1 % Normal 20.5-60.0 [facility] Comment on above: Performed By: #### C VDTBH #### [facility] [address] [place] [address] Dr. Adan Rinaldi MANUAL DIFF REQ NO Normal [facility] Comment on above: Performed By: #### C VDTBH #### [facility] [address] [place] [address] Dr. Adan Rinaldi MCH (RBC) [Entitic mass] 28.5 pg Normal 26.7-34.0 [facility] Comment on above: Performed By: #### C VDTBH #### [facility] [address] [place] [address] Dr. Adan Rinaldi MCHC (RBC) [Mass/Vol] 31.8 g/dL Normal 29.9-35.2 [facility] Comment on above: Performed By: #### C VDTBH #### [facility] [address] [place] [address] Dr. Adan Rinaldi MCV (RBC) [Entitic vol] 89.6 fL Normal 81.0-99.0 [facility] Comment on above: Performed By: #### C VDTBH #### [facility] [address] [place] [address] Dr. Adan Rinaldi MONO # 0.6 103/ul Normal 0.3-0.8 [facility] Comment on above: Performed By: #### C VDTBH #### [facility] [address] [place] [address] Dr. Adan Rinaldi Monocytes/100 WBC (Bld) 8.4 % Normal 1.7-12.0 [facility] Comment on above: Performed By: #### C VDTBH #### [facility] [address] [place] [address] Dr. Adan Rinaldi NEUT # 4.4 103/ul Normal 1.4-6.5 [facility] Comment on above: Performed By: #### C VDTBH #### [facility] [address] [place] [address] Dr. Adan Rinaldi Neutrophils/100 WBC (Bld) 61.3 % Normal 43.0-75.0 [facility] Comment on above: Performed By: #### C VDTBH #### [facility] [address] [address] [address] Adan Rinaldi Platelet mean volume (Bld) [Entitic vol] 9.1 fL Critically low 9.5-13.5 [facility] Comment on above: Performed By: #### C VDTBH #### [facility] [address] [place] [address] Dr. Adan Rinaldi PLT 215 103/ul Normal 150-450 [facility] Comment on above: Performed By: #### C VDTBH #### [facility] [address] [place] [address] Dr. Adan Rinaldi RBC 3.47 106/ul Critically low 4.20-5.40 [facility] Comment on above: Performed By: #### C VDTBH #### [facility] [address] [place] [address] Dr. Adan Rinaldi WBC 7.1 103/ul Normal 4.0-11.0 [facility] Comment on above: Performed By: #### C VDTBH #### [facility] [address] [place] [address] Dr. Adan Rinaldi MRSA NARES #1on 05-13-2022 MRSA NARES #1 Culture Observations: NO GROWTH OF MRSA AT 48 HOURS. Normal [facility] Comment on above: Performed By: #### P OCGLUC #### [facility] [address] [place] [address] Dr. Adan Rinaldi PROF CHEM 8 (BAS METB)on Anion gap [Moles/Vol] 11.6 mmol/L Normal [facility] Comment on above: Performed By: #### H STROPN, BMP #### [facility] [address] [place] [address] Dr. Adan Rinaldi Calcium [Mass/Vol] 8.8 mg/dL Normal 8.5-10.1 [facility] Comment on above: Performed By: #### H STROPN, BMP #### [facility] [address] [place] [address] Dr. Adan Rinaldi Chloride [Moles/Vol] 103 mmol/L Normal 98-107 [facility] Comment on above: Performed By: #### H STROPN, BMP #### [facility] [address] [address] [address] Adan Rinaldi CO2 [Moles/Vol] 25.9 mmol/L Normal 21.0-32.0 [facility] Comment on above: Performed By: #### H STROPN, BMP #### [facility] [address] [address] [address] Adan Rinaldi Creatinine [Mass/Vol] 1.37 mg/dL Critically high 0.55-1.02 [facility] Comment on above: Performed By: #### H STROPN, BMP #### [facility] [address] [address] [address] Adan Rinaldi EGFR-AF MACANESE 44 mL/min/1.73m2 Critically low >=60 [facility] Comment on above: Performed By: #### H STROPN, BMP #### [facility] [address] [place] [address] Dr. Adan Rinaldi EGFR-NON AF MACANESE 37 mL/min/1.73m2 Critically low >=60 [facility] Comment on above: Performed By: #### H STROPN, BMP #### [facility] [address] [place] [address] Dr. Adan Rinaldi Glucose [Mass/Vol] 165 mg/dL Critically high 74-106 [facility] Comment on above: Performed By: #### H STROPN, BMP #### [facility] [address] [place] [address] Dr. Adan Rinaldi Potassium [Moles/Vol] 4.5 mmol/L Normal 3.5-5.1 [facility] Comment on above: Performed By: #### H STROPN, BMP #### [facility] [address] [address] [address] Adan Rinaldi Sodium [Moles/Vol] 136 mmol/L Normal 136-145 [facility] Comment on above: Performed By: #### H STROPN, BMP #### [facility] [address] [place] [address] Dr. Adan Rinaldi Urea nitrogen [Mass/Vol] 32.0 mg/dL Critically high 7.0-18.0 [facility] Comment on above: Performed By: #### H JACQUELINEPN, BMP #### [facility] [address] [place] [address] Dr. Adan Rinaldi Urea nitrogen/Creatinine [Mass ratio] 23.4 mg/mg Normal [facility] Comment on above: Performed By: #### H LYNNE, BMP #### [facility] [address] [place] [address] Dr. Adan Rinaldi PROTIMEon 05-13-2022 INR Coag (PPP) [Relative time] 1.00 {INR} Normal [facility] Comment on above: Performed By: #### H LYNNE, BMP #### [facility] [address] [place] [address] Dr. Adan Rinaldi INR GUIDELINES SEE BELOW Normal [facility] Comment on above: Result Comment: DAVID RED INR: 2.0 - 3.0 CONDITIONS NOT LISTED BELOW 2.5 - 3.5 FOR PROSTHETIC HEART VALVE REPLACEMENT 2.5 - 3.5 RECURRENT THROMBOSIS Performed By: #### H LYNNE, BMP #### [facility] [address] [place] [address] Dr. Adan Rinaldi PT Coag (PPP) [Time] 10.8 s Normal 9.0-11.6 [facility] Comment on above: Performed By: #### H LYNNE, BMP #### [facility] [address] [place], [place] [id number] Dr. Adan Rinaldi PTTon 05-13-2022 aPTT Coag (Bld) [Time] 25.8 s Normal 22.3-36.2 [facility] Comment on above: Performed By: #### H LYNNE, BMP #### [facility] [address] [place], [place] [id number] Dr. Adan Rinaldi HUMERUS LEFTon 05-04-2022 [facility] Department of Radiology [address] [place] [id number] Patient Name: ELIZ HEWITT : 1935 [...] configuration. Electronically signed: Gm Garrison. Transcribed by: [email or web address], User Resident: Electronically Signed by: GM GARRISON @ 05/04/2022 03:08 PM Normal [facility] Comment on above: Order Comment: No: D o not add to previous draw BNPon 03-25-2022 Natriuretic peptide B (Bld) [Mass/Vol] 4401.0 pg/mL Critically high <=1,800.0 [facility] Comment on above: Performed By: #### P OCGLUC #### [facility] [address] [address] [address] Adan Rinaldi PROF CHEM 8 (BAS METB)on Anion gap [Moles/Vol] 13.4 mmol/L [facility] Comment on above: Performed By: #### H STROPN, BMP #### [facility] [address] [place] [address] Dr. Adan Rinaldi Calcium [Mass/Vol] 8.6 mg/dL Normal 8.5-10.1 [facility] Comment on above: Performed By: #### H STROPN, BMP #### [facility] [address] [place] [address] Dr. Adan Rinaldi Chloride [Moles/Vol] 104 mmol/L Normal 98-107 [facility] Comment on above: Performed By: #### H STROPN, BMP #### [facility] [address] [place] [address] Dr. Adan Rinaldi CO2 [Moles/Vol] 24.4 mmol/L Normal 21.0-32.0 [facility] Comment on above: Performed By: #### H STROPN, BMP #### [facility] [address] [place] [address] Dr. Adan Rinaldi Creatinine [Mass/Vol] 1.60 mg/dL Critically high 0.55-1.02 [facility] Comment on above: Performed By: #### H STROPN, BMP #### [facility] [address] [place] [address] Dr. Adan Rinaldi EGFR-AF MACANESE 37 mL/min/1.73m2 Critically low >=60 [facility] Comment on above: Performed By: #### H STROPN, BMP #### [facility] [address] [place] [address] Dr. Adan Rinaldi EGFR-NON AF MACANESE 31 mL/min/1.73m2 Critically low >=60 [facility] Comment on above: Performed By: #### H STROPN, BMP #### [facility] [address] [address] [address] Adan Rinaldi Glucose [Mass/Vol] 251 mg/dL Critically high 74-106 [facility] Comment on above: Performed By: #### H STROPN, BMP #### [facility] [address] [address] [address] Adan Rinaldi Potassium [Moles/Vol] 4.8 mmol/L Normal 3.5-5.1 [facility] Comment on above: Performed By: #### H STROPN, BMP #### [facility] [address] [place] [address] Dr. Adan Rinaldi Sodium [Moles/Vol] 137 mmol/L Normal 136-145 [facility] Comment on above: Performed By: #### H STROPN, BMP #### [facility] [address] [place] [address] Dr. Adan Rinaldi Urea nitrogen [Mass/Vol] 46.0 mg/dL Critically high 7.0-18.0 [facility] Comment on above: Performed By: #### H STROPN, BMP #### [facility] [address] [place] [address] Dr. Adan Rinaldi Urea nitrogen/Creatinine [Mass ratio] 28.8 mg/mg Normal [facility] Comment on above: Performed By: #### H STROPN, BMP #### [facility] [address] [place] [address] Dr. Adan Rinaldi BNPon 01-30-2022 Natriuretic peptide B (Bld) [Mass/Vol] 3098.0 pg/mL Critically high <=1,800.0 [facility] Comment on above: Performed By: #### P OCGLUC #### [facility] [address] [place] [address] Dr. Adan Rinaldi PROF CHEM 8 (BAS METB)on Anion gap [Moles/Vol] 11.5 mmol/L [facility] Comment on above: Performed By: #### P OCGLUC #### [facility] [address] [place] [address] Dr. Adan Rinaldi Calcium [Mass/Vol] 8.9 mg/dL Normal 8.5-10.1 [facility] Comment on above: Performed By: #### P OCGLUC #### [facility] [address] [address] [address] Adan Rinaldi Chloride [Moles/Vol] 98 mmol/L Normal 98-107 [facility] Comment on above: Performed By: #### P OCGLUC #### [facility] [address] [address] [address] Adan Rinaldi CO2 [Moles/Vol] 29.7 mmol/L Normal 21.0-32.0 [facility] Comment on above: Performed By: #### P OCGLUC #### [facility] [address] [address] [address] Adan Rinaldi Creatinine [Mass/Vol] 1.58 mg/dL Critically high 0.55-1.02 [facility] Comment on above: Performed By: #### P OCGLUC #### [facility] [address] [address] [address] Adan Rinaldi EGFR-AF MACANESE 38 mL/min/1.73m2 Critically low >=60 [facility] Comment on above: Performed By: #### P OCGLUC #### [facility] [address] [address] [address] Adan Rinaldi EGFR-NON AF MACANESE 31 mL/min/1.73m2 Critically low >=60 [facility] Comment on above: Performed By: #### P OCGLUC #### [facility] [address] [address] [address] Adan Rinaldi Glucose [Mass/Vol] 108 mg/dL Critically high 74-106 [facility] Comment on above: Performed By: #### P OCGLUC #### [facility] [address] [address] [address] Adan Rinaldi Potassium [Moles/Vol] 4.2 mmol/L Normal 3.5-5.1 [facility] Comment on above: Performed By: #### P OCGLUC #### [facility] [address] [address] [address] Adan Rinaldi Sodium [Moles/Vol] 135 mmol/L Critically low 136-145 [facility] Comment on above: Performed By: #### P OCGLUC #### [facility] [address] [address] [address] Adan Rinaldi Urea nitrogen [Mass/Vol] 47.0 mg/dL Critically high 7.0-18.0 [facility] Comment on above: Performed By: #### P OCGLUC #### [facility] [address] [address] [address] Adan Rinaldi Urea nitrogen/Creatinine [Mass ratio] 29.7 mg/mg Normal [facility] Comment on above: Performed By: #### P OCGLUC #### [facility] [address] [place] [address] Dr. Adan Rinaldi CBC COMPLETE BLOOD COUNTon - Erythrocyte distribution width (RBC) [Ratio] 14.0 % Normal 11.5-15.0 [facility] Comment on above: Order Comment: No: D o not add to previous draw Performed By: #### 9 2096, 14846 #### [facility] [address] [place] [address], [facility] Hematocrit (Bld) [Volume fraction] 29.4 % Low 36.0-45.0 [facility] Comment on above: Order Comment: No: D o not add to previous draw Performed By: #### 9 2096, 52781 #### [facility] [address] [place] [address], [place] Hemoglobin (Bld) [Mass/Vol] 9.6 g/dL Low 12.0-15.0 [facility] Comment on above: Order Comment: No: D o not add to previous draw Performed By: #### 9 2096, 04196 #### [facility] [address] [place] [address], [place] MCH (RBC) [Entitic mass] 29.3 pg Normal 27.0-33.0 [facility] Comment on above: Order Comment: No: D o not add to previous draw Performed By: #### 9 2096, #### [facility] [address] [place] [id number], [facility] MCHC (RBC) [Mass/Vol] 32.7 g/dL Normal 32.0-35.0 [facility] Comment on above: Order Comment: No: D o not add to previous draw Performed By: #### 9 2096, #### [facility] [address] [place] [address], [place] MCV (RBC) [Entitic vol] 89.6 fL Normal 82.0-98.0 [facility] Comment on above: Order Comment: No: D o not add to previous draw Performed By: #### 9 2096, #### [facility] [address] [place] [id number], [facility] Nucleated RBC/100 WBC (Bld) [Ratio] 0 % Normal 0-0 [facility] Comment on above: Order Comment: No: D o not add to previous draw Performed By: #### 9 2096, #### [facility] [address] [place] [id number], [place] PLAT CNT 219 10*3/uL Normal 150-400 [facility] Comment on above: Order Comment: No: D o not add to previous draw Performed By: #### 9 2096, 15020 #### [facility] [address] [place] [address], [place] RBC (Bld) [#/Vol] 3.28 10*6/uL Low 3.80-5.00 [facility] Comment on above: Order Comment: No: D o not add to previous draw Performed By: #### 9 2096, 21581 #### [facility] [address] [place] [address], [place] WBC (Bld) [#/Vol] 10.45 10*3/uL Normal 4.00-10.60 [facility] Comment on above: Order Comment: No: D o not add to previous draw Performed By: #### 9 2096, #### [facility] [address] [place] [address], [place] COMP METABOLIC PANELon 01-14 Albumin [Mass/Vol] 3.5 g/dL Normal 3.5-5.7 [facility] Comment on above: Order Comment: No: D o not add to previous draw Performed By: #### 9 2096, #### [facility] [address] [place] [address], [place] ALKALINE PHOSPH 62 IU/L Normal 34-104 [facility] Comment on above: Order Comment: No: D o not add to previous draw Performed By: #### 9 2096, #### [facility] [address] [place] [address], [place] ALT [Catalytic activity/Vol] 5 U/L Low 7-52 [facility] Comment on above: Order Comment: No: D o not add to previous draw Performed By: #### 9 2096, #### [facility] [address] [place] [address], [place] AST [Catalytic activity/Vol] 23 U/L Normal 13-39 [facility] Comment on above: Order Comment: No: D o not add to previous draw Performed By: #### 9 2096, #### [facility] [address] [place] [address], [place] Bilirubin [Mass/Vol] 0.4 mg/dL Normal 0.3-1.0 [facility] Comment on above: Order Comment: No: D o not add to previous draw Performed By: #### 9 2096, #### [facility] [address] [place] [address], [place] Calcium [Mass/Vol] 8.9 mg/dL Normal 8.6-10.3 [facility] Comment on above: Order Comment: No: D o not add to previous draw Performed By: #### 9 2096, [id number] #### [facility] [address] [place] [address], [place] Chloride [Moles/Vol] 104 mmol/L Normal 98-107 [facility] Comment on above: Order Comment: No: D o not add to previous draw Performed By: #### 9 2096, 78793 #### [facility] [address] [place] [address], [place] CO2 [Moles/Vol] 26 mmol/L Normal 21-31 [facility] Comment on above: Order Comment: No: D o not add to previous draw Performed By: #### 9 2096, 33236 #### [facility] [address] [place] [address], [place] Creatinine [Mass/Vol] 1.79 mg/dL High 0.60-1.20 [facility] Comment on above: Order Comment: No: D o not add to previous draw Performed By: #### 9 2096, 27730 #### [facility] [address] [place] [address], [place] eGFR- 33 ml/min/1.73sq m Abnormal >60 [facility] Comment on above: Order Comment: No: D o not add to previous draw Result Comment: Calc ulation may not be valid for patients over 70 years Performed By: #### 9 2096, 18366 #### [facility] [address] [place] [address], [place] eGFR- non- 27 ml/min/1.73sq m Abnormal >60 [facility] Comment on above: Order Comment: No: D o not add to previous draw Result Comment: Calc ulation may not be valid for patients over 70 years Performed By: #### 9 2096, #### [facility] [address] [place] [address], [place] Glucose [Mass/Vol] 49 mg/dL Critically low 70-100 Th e [facility] Comment on above: Order Comment: No: D o not add to previous draw Result Comment: M-CR ITICAL RESULT(S) REVIEWED, CALLED TO AND READ BACK BY ETELVINA PATEL AT 0651 Performed By: #### 9 2096, #### [facility] [address] [place] [address], [place] Potassium [Moles/Vol] 3.5 mmol/L Normal 3.5-5.1 The [facility] Comment on above: Order Comment: No: D o not add to previous draw Performed By: #### 9 2096, #### [facility] [address] [place] [address], [place] Protein [Mass/Vol] 6.9 g/dL Normal 6.0-8.3 [facility] Comment on above: Order Comment: No: D o not add to previous draw Performed By: #### 9 2096, #### [facility] [address] [place] [address], [place] Sodium [Moles/Vol] 139 mmol/L Normal 136-145 [facility] Comment on above: Order Comment: No: D o not add to previous draw Performed By: #### 9 2096, #### [facility] [address] [place] [address], [place] Urea nitrogen [Mass/Vol] 58 mg/dL High 7-25 The [facility] Comment on above: Order Comment: No: D o not add to previous draw Performed By: #### 9 2096, [id number] #### [facility] [address] [place] [address], [place] Cardiovascular Lab Reporton 01-14-2022 Cardiovascular Lab Report [facility] #: [id number] Physician: Tanisha Rea M.D. Medicine Service Date: 01/13/2022 Division of Birthdate: 1935 Cardiology Room #: 3CD [id number] Adult Cardiovascular Services [facility] [address] [place] [id number] Cardiovascular Laboratory Report INDICATION: The patient is [...] the aortic valve. She was recommended TAVR gfkni-na-wcyie procedure for management of her severe symptomatic [...] right common femoral artery using 2 crossing 6-[place]izen [place] ProGlide devices. 6. Angio-Seal closure in the left common femoral artery. 7. Placement of a temporary pacemaker wire. INTERVENTIONAL CARDIOLOGY PHOTO MASK INSPECTOR: Tanisha Arellano M.D. CARDIOTHORACIC SURGERY PHOTO MASK INSPECTOR: Marcello Gregory M.D. CONFLICT RESOLUTION PROFESSIONAL: Ramon Mejia M.D. METHODS: Procedure was explained to the patient with risks and benefits. She signed the consent. She was brought to boot and shoe laborer in a fasting state. The procedure was performed under conscious sedation in the boot and shoe laborer. Both groin areas were prepped and draped in usual fashion. Micropuncture technique was used for access in the right common femoral artery under ultrasound guidance. Micropuncture inner cannula angiography was performed followed by upsizing to a 6-[place]izen [place] x 11 cm sheath. Access was obtained using same technique in the left common femoral artery and after the inner cannula angiography, the access was upsized to a 6-[place] x 11 cm sheath. Access was obtained also in the left common femoral vein using same technique and a 6-[place] x 11 cm sheath was placed. Preclosure was performed in the right common femoral artery using 2 crossing ProGlide devices followed by upsizing to a 10-[place]izen [place] by 11 cm sheath. A 5-[place] balloon temporary pacemaker wire was advanced through the femoral venous sheath into the right ventricular apex and adequate capture was confirmed. A 6-[place] XB 3.0 guiding catheter was advanced through [...] during the rest of the procedure. The 6-[place] Multipurpose catheter was then advanced through the right common femoral access to the descending aorta over a J wire and the multipurpose catheter was then used to place a Lunderquist wire, which was used to upsize the access to the 14-[place]izen [place] Medrano E sheath, which was secured in place. We crossed the bioprosthetic prosthesis using a combination of a 6-[place] AL1 diagnostic catheter and a stiff straight Glidewire after additional attempts using a 6-[place] JR4 diagnostic catheter and a 6-[place] multipurpose catheter. After crossing the valve, the AL1 catheter was advanced and an exchange length wire was placed and a 6-[place] angled pigtail catheter was advanced to the [...] w (more content not included)... Normal The [facility] MAGNESIUM BLOODon 01-14-2022 Magnesium [Mass/Vol] 2.4 mg/dL Normal 1.9-2.7 The [facility] Comment on above: Order Comment: No: D o not add to previous draw Performed By: #### 9 1927, [id number] #### [facility] [address] Operative Reporton 2 Operative Report MR#: [id number] I [facility] Pt. 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 OPERATION: Valve in valve transcatheter aortic valve replacement with 20 mm Enoch ultra valve. CO-SURGEON: Tanisha Arellano M.D. NEON SIGN SERVICER: Dr. Mejia. ANESTHESIA: MAC. INDICATIONS: This is an 86-year-old female with severe mitral stenosis and bioprosthetic aortic valve stenosis, who was recommended a valve in valve TAVR followed by potential intervention of mitral valve. PROCEDURE IN DETAIL: The patient was brought into the boot and shoe laborer and prepped and draped in the routine fashion. 1% lidocaine was infiltrated in both groins and percutaneous access was achieved with ultrasound guidance in both groins with a 6-[place]izen [place] sheaths. A temporary transvenous pacemaker inserted through the right femoral vein and tested for later use. The pigtail catheter was inserted into the ascending aorta and then the patient was heparinized. The right femoral sheath was upgraded to a 14-[place]izen [place] sheath. Over a Lunderquist wire, an L4 [...] Gregory MD Date Trans: 01/14/2022 03:29 A/rabia [id number] Normal The [facility] POC GLUCOSE LABon 01-14-2022 Glucose [Mass/Vol] 165 mg/dL High 70-100 The [facility] Comment on above: Performed By: #### 5 0103 #### [facility] [address] [address], [place] Glucose [Mass/Vol] 166 mg/dL High 70-100 The [facility] Comment on above: Performed By: #### 9 2097, 07275 #### [facility] [address] [place] [address], [place] POC GLUCOSE LABon 01-13-2022 Glucose [Mass/Vol] 266 mg/dL High 70-100 The [facility] Comment on above: Performed By: #### 8 5499 #### [facility] [address] [place] [address], [place] Glucose [Mass/Vol] 196 mg/dL High 70-100 The [facility] Comment on above: Performed By: #### 9 2096, 83191 #### [facility] [address] [place] [address], [place] Glucose [Mass/Vol] 106 mg/dL High 70-100 The [facility] Comment on above: Performed By: #### 9 2096, 83117 #### [facility] [address] [place] [address], [place] TYPE AND SCREENon 01-13-2022 ABO INTERPRETATION A Normal The [facility] Comment on above: Performed By: #### 9 2096, [id number] #### [facility] [address] [place] [address], [place] RH INTERPRETATION Positive Normal The [facility] Comment on above: Performed By: #### 9 2096, 59082 #### [facility] [address] [place] [address], [place] CREATININE BLOODon 2 Creatinine [Mass/Vol] 1.80 mg/dL High 0.60-1.20 The [facility] Comment on above: Performed By: #### 2 5656 #### [facility] [address] [place] [address], [place] eGFR- 33 ml/min/1.73sq m Abnormal >60 The [facility] Comment on above: Result Comment: Calc ulation may not be valid for patients over 70 years Performed By: #### 2 5656 #### [facility] [address] [place] [address], [place] eGFR- non- 27 ml/min/1.73sq m Abnormal >60 The [facility] Comment on above: Result Comment: Calc ulation may not be valid for patients over 70 years Performed By: #### 2 5656 #### [id number] [place] [address] CT ABDOMEN AND PELVIS WO CON TRASTon 12-19-2021 CT ABDOMEN AND PELVIS WO CONTRAST [facility] Department of Radiology [address] [place] [id number] Patient Name: ELIZ HEWITT : 1935 Sex: F Age: Race: White Pt. Location: Patient Status: D Ordered Date: 11/18/2021 11:30:00 AM Completed Date: 12/19/2021 12:04 PM Requesting Provider: DAVEY CARRASCO Attending Provider: DAVEY CARRASCO Report Copy To: YOKO HELMS Signs & Symptoms: I35.0 Nonrheumatic aortic (valve) stenosis I10 no contrast per davey carrasco due to poor gfr History: [place] labs will need done *patient son cannot [...] the right sided abdomen are excluded from ldwln-[id number] and not imaged Grossly, the imaged portions [...] calcifications. Electronically signed: Contreras Polo. Transcribed by: [email or web address], User Resident: Electronically Signed by: CONTRERAS POLO @ 12/24/2021 08:56 AM Normal The [facility] Comment on above: Order Comment: No: D o not add to previous draw CT CHEST WO CONTRASTon 12-19 CT CHEST WO CONTRAST [facility] Department of Radiology [address] [place] [id number] Patient Name: ELIZ HEWITT : 1935 [...] 3. Cusped view, anterior view and no PLANE CAPTAIN-CAU view are saved. The annulus measures 19.1 [...] seen Electronically signed: Jessica Horton. Transcribed by: [email or web address], User Resident: Electronically Signed by: JESSICA HORTON @ 12/25/2021 02:14 PM Normal The [facility] Comment on above: Order Comment: No: D o not add to previous draw Cardiovascular Lab Reporton 11-12-2021 Cardiovascular Lab Report [facility] Patient Name: Kash [facility] MR #: [id number] Physician: Tanisha Garcia of Milind Arellano Medicine Service Date: 11/11/2021 Division of Birthdate: 1935 Cardiology Room #: [facility] Cardiovascular Services [place] [address] [address] [place] [address] Cardiovascular Laboratory Report INDICATION: The patient is [...] and her aortic valve stenosis has become tmsoydik-we-eqjqhj by transthoracic echocardiogram. She was evaluated in [...] She signed consent. She was brought to boot and shoe laborer in a fasting state. The right groin area was prepped and draped in usual the fashion. Micropuncture technique and ultrasound guidance were used for access in the right common femoral artery. Inner cannula angiography was performed followed by upsizing to a 4-[place]izen [place] x 11 cm sheath. Access was obtained using the same technique in the right common femoral vein and a 6-[place]izen [place] x 11 cm sheath was placed. A 6-[place] Willard catheter was used for right catheterization with measurement of pressures and calculation of cardiac output using the estimated Belle method. Willard catheter was removed. Bilateral selective angiography was then performed using 4-Citizen [place] JL4 and JR4 diagnostic catheters. A 4-[place]izen [place] straight pigtail catheter was advanced and placed [...] 11/15/2021 (more content not included)... Normal The [facility] Vital Signs Date Time Vital Sign Value Performing Clinician Facility 05-01-2025 08:36-0400 Body height 157.48 cm Yoko Helms MD Work Phone: [facility] 05-01-2025 08:36-0400 Body mass index (BMI) [Ratio] 28.9 kg/m2 Yoko Helms MD Work Phone: [facility] 05-01-2025 08:36-0400 Body weight 71.66 kg Yoko Helms MD Work Phone: [facility] 05-01-2025 08:36-0400 Diastolic blood pressure 71 mm[Hg] Yoko Helms MD Work Phone: [facility] 05-01-2025 08:36-0400 Heart rate 60 /min Yoko Helms MD Work Phone: [facility] 05-01-2025 08:36-0400 Respiratory rate 16 /min Yoko Helms MD Work Phone: [facility] 05-01-2025 08:36-0400 SaO2% (BldA) [Mass fraction] 97 % Yoko Helms MD Work Phone: [facility] 05-01-2025 08:36-0400 Systolic blood pressure 121 mm[Hg] Yoko Helms MD Work Phone: [facility] 03-29-2025 13:58-0400 Body height 149.86 cm Yoko Helms MD Work Phone: [facility] 03-29-2025 13:58-0400 Body mass index (BMI) [Ratio] 32.5 kg/m2 Yoko Helms MD Work Phone: [facility] 03-29-2025 13:58-0400 Body weight 73.02 kg Yoko Helms MD Work Phone: [facility] 03-29-2025 13:58-0400 Diastolic blood pressure 75 mm[Hg] Yoko Helms MD Work Phone: [facility] 03-29-2025 13:58-0400 Heart rate 74 /min Yoko Helms MD Work Phone: [facility] 03-29-2025 13:58-0400 Respiratory rate 12 /min Yoko Helms MD Work Phone: [facility] 03-29-2025 13:58-0400 SaO2% (BldA) [Mass fraction] 93 % Yoko Helms MD Work Phone: [facility] 03-29-2025 13:58-0400 Systolic blood pressure 141 mm[Hg] Yoko Helms MD Work Phone: [facility] 07-24-2024 12:55-0500 Body height 149.86 cm [facility] 07-24-2024 12:55-0500 Body mass index (BMI) [Ratio] 30.4 kg/m2 [facility] 07-24-2024 12:55-0500 Body weight 68.49 kg [facility] 07-24-2024 12:55-0500 Diastolic blood pressure 74 mm[Hg] [facility] 07-24-2024 12:55-0500 Heart rate 61 /min [facility] 07-24-2024 12:55-0500 Systolic blood pressure 130 mm[Hg] [facility] 05-08-2024 13:00-0400 Body height 149.86 cm [facility] 05-08-2024 13:00-0400 Body mass index (BMI) [Ratio] 29.9 kg/m2 [facility] 05-08-2024 13:00-0400 Body weight 67.13 kg [facility] 05-08-2024 13:00-0400 Diastolic blood pressure 63 mm[Hg] [facility] 05-08-2024 13:00-0400 Heart rate 57 /min [facility] 05-08-2024 13:00-0400 SaO2% (BldA) [Mass fraction] 97 % [facility] 05-08-2024 13:00-0400 Systolic blood pressure 155 mm[Hg] [facility] 01-04-2024 15:30-0400 Body height 149.86 cm [facility] 01-04-2024 15:30-0400 Body mass index (BMI) [Ratio] 29.2 kg/m2 [facility] 01-04-2024 15:30-0400 Body weight 65.77 kg [facility] 01-04-2024 15:30-0400 Diastolic blood pressure 73 mm[Hg] [facility] 01-04-2024 15:30-0400 Heart rate 59 /min [facility] 01-04-2024 15:30-0400 SaO2% (BldA) [Mass fraction] 98 % [facility] 01-04-2024 15:30-0400 Systolic blood pressure 123 mm[Hg] [facility] 09-06-2023 13:00-0500 Body height 149.86 cm Yoko Helms Other [employer] [facility] [employer] Other 09-06-2023 13:00-0500 Body mass index (BMI) [Ratio] 29.69 kg/m2 Yoko Helms Other [employer] Other 09-06-2023 13:00-0500 Body weight 66.68 kg Yoko Helms Other [employer] Other 09-06-2023 13:00-0500 Diastolic blood pressure 81 mm[Hg] Yoko Helms Other [employer] Other 09-06-2023 13:00-0500 SaO2% (BldA) [Mass fraction] 97 % Yoko Helms Other [employer] Other 09-06-2023 13:00-0500 Systolic blood pressure 143 mm[Hg] Yoko Helms Other [employer] Other 06-07-2023 10:45-0400 Body height 149.86 cm Yoko Helms Other [employer] Other 06-07-2023 10:45-0400 Body mass index (BMI) [Ratio] 28.88 kg/m2 Yoko Helms Other [employer] Other 06-07-2023 10:45-0400 Body weight 64.86 kg Yoko Helms Other [employer] Other 06-07-2023 10:45-0400 Diastolic blood pressure 67 mm[Hg] Yoko Helms Other [employer] Other 06-07-2023 10:45-0400 Systolic blood pressure 117 mm[Hg] Yoko Helms Other [employer] Other 05-27-2023 15:30-0400 Body height 149.86 cm Yoko Helms Other [employer] Other 05-27-2023 15:30-0400 Body mass index (BMI) [Ratio] 29.69 kg/m2 Yoko Helms Other [employer] Other 05-27-2023 15:30-0400 Body weight 66.68 kg Yoko Helms Other [employer] Other 05-27-2023 15:30-0400 Diastolic blood pressure 66 mm[Hg] Yoko Helms Other [employer] Other 05-27-2023 15:30-0400 Respiratory rate 12 /min Yoko Helms Other [employer] Other 05-27-2023 15:30-0400 Systolic blood pressure 144 mm[Hg] Yoko Helms Other [employer] Other 01-25-2023 16:30-0400 Body height 149.86 cm Yoko Helms Other [employer] Other 01-25-2023 16:30-0400 Body mass index (BMI) [Ratio] 27.06 kg/m2 Yoko Helms Other [employer] Other 01-25-2023 16:30-0400 Body weight 60.78 kg Yoko Helms Other [employer] Other 01-25-2023 16:30-0400 Diastolic blood pressure 72 mm[Hg] Yoko Helms Other [employer] Other 01-25-2023 16:30-0400 SaO2% (BldA) [Mass fraction] 96 % Yoko Helms Other [employer] Other 01-25-2023 16:30-0400 Systolic blood pressure 122 mm[Hg] Yoko Helms Other [employer] Other 10-27-2022 16:15-0500 Body height 149.86 cm Yoko Helms Other [employer] Other 10-27-2022 16:15-0500 Body mass index (BMI) [Ratio] 27.26 kg/m2 Yoko Helms Other [employer] Other 10-27-2022 16:15-0500 Body weight 61.24 kg Yoko Helms Other [employer] Other 10-27-2022 16:15-0500 Diastolic blood pressure 60 mm[Hg] Yoko Helms Other [employer] Other 10-27-2022 16:15-0500 SaO2% (BldA) [Mass fraction] 97 % Yoko Helms Other [employer] Other 10-27-2022 16:15-0500 Systolic blood pressure 112 mm[Hg] Yoko Helms Other [facility] [employer] Other 09-24-2022 08:00-0500 Body temperature 98.4 [degF] DO Brad Harper Work Phone: [facility] 09-24-2022 08:00-0500 Diastolic blood pressure 74 mm[Hg] DO Brad Harper Work Phone: [facility] 09-24-2022 08:00-0500 Heart rate 79 /min DO Brad Harper Work Phone: [facility] 09-24-2022 08:00-0500 Respiratory rate 14 /min DO Brad Meredith Work Phone: [facility] 09-24-2022 08:00-0500 SaO2% (BldA) [Mass fraction] 95 % DO Brad Harper Work Phone: [facility] 09-24-2022 08:00-0500 Systolic blood pressure 121 mm[Hg] DO Brad Harper Work Phone: [facility] 09-24-2022 06:00-0500 Body weight 62 kg DO Brad Harper Work Phone: [facility] 09-20-2022 12:13-0500 Body height 162.56 cm DO Brad Harper Work Phone: [facility] 09-20-2022 01:42-0500 Diastolic blood pressure 63 mm[Hg] DO Brad Harper Work Phone: [facility] 09-20-2022 01:42-0500 Heart rate 71 /min DO Brad Harper Work Phone: [facility] 09-20-2022 01:42-0500 Respiratory rate 20 /min DO Brad Harper Work Phone: [facility] 09-20-2022 01:42-0500 SaO2% (BldA) [Mass fraction] 95 % DO Brad Harper Work Phone: [facility] 09-20-2022 01:42-0500 Systolic blood pressure 139 mm[Hg] DO Brad Harper Work Phone: [facility] 09-19-2022 21:35-0500 Body temperature 97.5 [degF] DO Brad Harper Work Phone: [facility] 09-19-2022 20:46-0500 Body height 152.4 cm DO Brad Harper Work Phone: [facility] 09-19-2022 20:46-0500 Body weight 61.1 kg DO Brad Harper Work Phone: [facility] 09-05-2022 11:09-0500 Diastolic blood pressure 68 mm[Hg] Nurys Read MD Work Phone: [facility] 09-05-2022 11:09-0500 Heart rate 71 /min Nurys Read MD Work Phone: [facility] 09-05-2022 11:09-0500 Respiratory rate 16 /min Nurys Read MD Work Phone: [facility] 09-05-2022 11:09-0500 SaO2% (BldA) [Mass fraction] 97 % Nurys Read MD Work Phone: [facility] 09-05-2022 11:09-0500 Systolic blood pressure 179 mm[Hg] Nurys Read MD Work Phone: [facility] 09-04-2022 14:02-0500 Heart rate 59 /min Nurys Read MD Work Phone: [facility] 09-04-2022 00:35-0500 Body temperature 97.59 [degF] Nurys Read MD Work Phone: [facility] 04-21-2022 14:30-0400 Body height 160.02 cm Flower Garza Other [employer] Other 04-21-2022 14:30-0400 Body mass index (BMI) [Ratio] 25.68 kg/m2 Lfower Olexa Other [employer] Other 04-21-2022 14:30-0400 Body weight 65.77 kg Flower Olexa Other [employer] Other 07-24-2021 16:00-0400 Body height 160.02 cm Flower Olexa Other [employer] Other 07-24-2021 16:00-0400 Body mass index (BMI) [Ratio] 25.79 kg/m2 [employer] Other [employer] Other 07-24-2021 16:00-0400 Body weight 66.04 kg Flower Olexa Other [employer] Other 06-10-2021 14:30-0400 Body height 160.02 cm Flower Olexa Other [employer] Other 06-10-2021 14:30-0400 Body mass index (BMI) [Ratio] 26.04 kg/m2 [employer] Other [employer] Other 06-10-2021 14:30-0400 Body weight 66.68 kg Flower O[employer] Other [employer] Other Encounters Encounter Date Encounter Type Care Provider Facility Start: 05-10-2025 End: 05-10-2025 Patient encounter procedure Maurisio Leon MD -Ultrasound [facility] Work Phone: Start: 05-10-2025 End: 05-10-2025 ambulatory Yoko Helms MD Work Phone: [facility] Work Phone: Start: 05-01-2025 End: 05-01-2025 ambulatory Yoko Helms MD Work Phone: [facility] Work Phone: Start: 05-01-2025 End: 05-01-2025 Patient encounter procedure Maurisio Leon MD -[facility] Work Phone: Start: 03-29-2025 Patient encounter procedure Yoko Helms MD Work Phone: [facility] Start: 03-29-2025 End: 03-29-2025 ambulatory Yoko Helms MD Work Phone: [facility] Work Phone: Start: 03-29-2025 End: 03-29-2025 Patient encounter procedure Yoko Helms MD -[facility] Work Phone: Start: 01-05-2025 End: 01-05-2025 ambulatory [facility] Start: 10-06-2024 End: 10-06-2024 ambulatory [facility] Start: 08-30-2024 End: 08-30-2024 ambulatory [facility] Start: 07-24-2024 End: 07-24-2024 ambulatory [facility] Work Phone: Start: 07-24-2024 End: 07-24-2024 Patient encounter procedure [facility] Work Phone: Start: 07-21-2024 Non-patient / Non-visit [facility] Work Phone: Start: 07-17-2024 Non-patient / Non-visit [facility] Work Phone: Start: 05-08-2024 End: 05-08-2024 ambulatory [facility] Work Phone: Start: 05-08-2024 End: 05-08-2024 Patient encounter procedure [facility] Work Phone: Start: 04-05-2024 Non-patient / Non-visit [facility] Work Phone: Start: 03-03-2024 End: 03-03-2024 ambulatory [facility] Start: 01-04-2024 End: 01-04-2024 ambulatory [facility] Work Phone: Start: 01-04-2024 End: 01-04-2024 Patient encounter procedure [facility] Work Phone: Start: 12-01-2023 Non-patient / Non-visit [facility] Work Phone: Start: 09-06-2023 End: 09-06-2023 ambulatory Yoko Helms Other [employer] Other Start: 09-06-2023 Office outpatient vi sit 15 minutes Yoko Helms [facility] Start: 08-06-2023 End: 08-06-2023 ambulatory Yoko Helms Other [employer] Other Start: 08-06-2023 Telephone encounter Yoko Scooter [facility] Start: 07-21-2023 End: 07-21-2023 ambulatory Yoko Helms Other [employer] Other Start: 07-21-2023 Telephone encounter Yoko Helms [facility] Start: 06-07-2023 End: 06-07-2023 ambulatory Yoko Helms Other [employer] Other Start: 06-07-2023 Patient encounter procedure Yoko Scooter [facility] Start: 05-27-2023 End: 05-27-2023 ambulatory Yoko Helms Other [employer] Other Start: 05-27-2023 Office outpatient vi sit 25 minutes Yoko Helms [facility] Start: 01-27-2023 End: 01-27-2023 ambulatory Yoko Scooter Other [employer] Other Start: 01-27-2023 Telephone encounter Yoko Helms [facility] Start: 01-25-2023 End: 01-25-2023 ambulatory Yoko Helms Other [employer] Other Start: 01-25-2023 Office outpatient vi sit 25 minutes Yoko Helms [facility] Start: 01-14-2023 End: 01-15-[address] TANISHA ARELLANO Facility:[facility] Start: 12-15-2022 End: 12-15-2022 ambulatory Yoko Hemls Other [employer] Other Start: 12-15-2022 Telephone encounter Yoko Scooter [facility] Start: 11-30-2022 Postop follow up vis it related to original px Asad Pollard [facility] Start: 11-30-2022 End: 11-30-2022 ambulatory DO [facility] Work Phone: Start: 11-30-2022 End: 11-30-2022 Patient encounter procedure DO [facility] Start: 11-18-2022 End: 11-19-[address] TANISHA ARELLANO Facility:[facility] Start: 10-27-2022 End: 10-27-2022 ambulatory Yoko Helms Other [employer] Other Start: 10-27-2022 Office outpatient vi sit 25 minutes Yoko Helms [facility] Start: 10-26-2022 End: 10-26-2022 Patient encounter procedure DO [facility] Start: 10-26-2022 End: 10-26-2022 ambulatory Asad Pollard Other [employer] Other Start: 10-26-2022 Office outpatient vi sit 15 minutes Asad Pollard [facility] Start: 10-23-2022 End: 10-23-2022 ambulatory Yoko Helms Other [employer] Other Start: 10-23-2022 Telephone encounter Yoko Helms [facility] Start: 10-22-2022 End: 10-22-2022 ambulatory Yoko Helms Other [employer] Other Start: 10-22-2022 Telephone encounter Yoko Helms [facility] Start: 10-19-2022 End: 10-19-2022 ambulatory Yoko Helms Other [employer] Other Start: 10-19-2022 Telephone encounter Yoko Helms [facility] Start: 10-07-2022 End: 10-07-2022 ambulatory Yook Helms Other [employer] Other Start: 10-07-2022 Initial nursing faci lity care/day 35 minutes Yoko Helms [facility] Start: 10-03-2022 End: 10-05-2022 Evaluation and management of inpatient DR MARELY ALVES Facility:[facility] Start: 10-02-2022 End: 10-02-2022 ambulatory Yoko Helms Other [employer] Other Start: 10-02-2022 Telephone encounter Yoko Helms [facility] Start: 09-19-2022 End: 09-24-2022 Evaluation and management of inpatient DO Brad Harper Work Phone: [facility] Work Phone: Start: 09-08-2022 End: 09-09-[address] YOKO HELMS Facility:[facility] Start: 09-07-2022 Telephone encounter Oswaldo Lyons DDS Work Phone: [facility] Start: 09-05-2022 E.D. Visit Jessica Narayan [facility] Work Start: 09-04-2022 ambulatory Oswaldo Mccall DDS Work Phone: [facility] Start: 09-04-2022 Letter encounter Joya. Rushingjamie BARBER Work Phone: [facility] Trauma Surgery Start: 09-04-2022 End: 09-05-2022 Emergency department patient visit IP DENTISTRY ADULT CONSULT Facility:[facility] Start: 09-03-2022 Emergency department patient visit YOKO HELMS Facility:[facility] Start: 09-03-2022 End: 09-05-2022 Evaluation and management of inpatient Nurys Read MD Work Phone: [facility] Emergency Medicine Start: 09-03-2022 End: 09-03-2022 E.D. Visit Pita Daughertymirella BAKERDash [facility] Social W ork Comment on above: Trauma/complex Medic al Situation Start: 08-10-2022 End: 08-11-[address] YOKO HELMS Facility:[facility] Start: 07-29-2022 End: 07-30-[address] YOKO HELMS Facility:[facility] Start: 05-20-2022 End: 05-20-2022 ambulatory CODY Munson Facility:[facility] Start: 05-18-2022 End: 05-19-[address] DOCTOR HOOKER Facility:[facility] Start: 05-15-2022 End: 05-16-2022 ambulatory JAZMINE TREVINO Facility:[facility] Start: 05-15-2022 Encounter for other specified special examinations DR ZANA MAX [facility] Start: 05-13-2022 End: 05-14-[address] ZANA MAX Facility:[facility] Start: 05-13-2022 End: 05-14-2022 Encounter for other specified special examinations DR ZANA MAX Facility:[facility] Start: 04-22-2022 End: 04-22-2022 ambulatory Flower Garza Other [employer] Other Start: 04-22-2022 Telephone encounter Flower Garza [facility] Start: 04-21-2022 End: 04-22-2022 ambulatory FLOWER OLEXA [employer] Other Start: 04-21-2022 Office outpatient vi sit 25 minutes Flower Olexa [facility] Start: 03-25-2022 End: 03-26-[address] TANISHA ARELLANO Facility:[facility] Start: 03-11-2022 End: 08-26-[address] ALBINA BROWER Facility: Start: 02-17-2022 End: 02-18-2022 ambulatory YOKO HELMS Facility:[facility] Start: 01-30-2022 End: 01-31-2022 ambulatory BRETT HEWITT Facility:[facility] Start: 01-13-2022 End: 01-14-2022 Evaluation and management of inpatient YOKO HELMS Facility:[facility] Start: 12-19-2021 End: 12-20-2021 ambulatory YOKO HELMS Facility:[facility] Start: 11-25-2021 End: 11-26-2021 ambulatory YOKO HELMS Facility:[facility] Start: 11-11-2021 End: 11-12-2021 ambulatory YOKO HELMS Facility:[facility] Start: 07-24-2021 End: 07-24-2021 ambulatory Flower Olexa Other [employer] Other Start: 07-24-2021 Postop follow up vis it related to original px Flower Olexa [facility] Start: 06-10-2021 Postop follow up vis it related to original px Flower Olexa [facility] Procedures Date Procedure Procedure Detail Performing Clinician Start: 05-10-2025 Ultrasonography of b ilateral kidneys Yoko Helms MD Work Phone: Start: 11-30-2022 Plain X-ray of left hand DO [employer] Start: 10-26-2022 Plain X-ray of left hand DO [employer] Start: 09-23-2022 X-ray of right ankle DO [employer] Work Phone: Start: 09-23-2022 Magnetic resonance angiography of head without contrast DO [employer] Work Phone: Start: 09-22-2022 CT of head without contrast DO Brad Harper Work Phone: Start: 09-22-2022 Plain chest X-ray DO Edgardo Harper Work Phone: Start: 09-22-2022 Urine culture DO Brad Harper Work Phone: Start: 09-20-2022 Doppler ultrasonogra phy of bilateral carotid arteries DO Brad Harper Start: 09-19-2022 Plain X-ray of left hand DO Brad Harper Work Phone: Start: 09-19-2022 CT cervical spine wi thout contrast DO Brad Harper Work Phone: Start: 09-19-2022 CT of facial bones w ithout contrast DO Brad Harper Work Phone: Start: 09-19-2022 CT of head without contrast DO Brad Harper Work Phone: Start: 09-19-2022 Plain X-ray of left hand DO Brad Harper Work Phone: Start: 09-19-2022 Plain X-ray of right hip DO Brad Harper Work Phone: Start: 09-19-2022 Plain X-ray of right shoulder DO Brad Harper Work Phone: Start: 09-19-2022 X-ray of left ankle DO Brad Harper Work Phone: Start: 09-19-2022 X-ray of left knee DO Dash Harper Work Phone: Start: 09-05-2022 End: 09-05-2022 [...] Comment on above: Performed By: #### [id number] #### [facility] [address] Plan of Treatment Date Care Activity Detail Author Start: 04-09-2025 Patient referral [facility] Work Phone: Start: 09-05-2023 End: 09-05-2023 Basic metabolic 2000 panel - Serum or Plasma [employer] Work Phone: Comment on above: 1 Occurrences starti ng 09/05/2022 until 09/05/2023 Start: 09-03-2023 Basic metabolic 2000 panel - Serum or Plasma [facility] Start: 09-03-2023 [facility]id [facility] Start: 03-04-2023 Hemoglobin A1c measurement Hemoglobin A1C [facility] Start: 09-23-2022 [facility] Start: 09-22-2022 Referral to neurologist [facility] Start: 09-20-2022 Doppler ultrasonogra phy of bilateral carotid arteries US carotid doppler BI [facility] Start: 09-20-2022 US.doppler Carotid arteries - bilateral [facility] Start: 09-20-2022 Hospital admission [facility] Start: 09-19-2022 Plain X-ray of left hand XR hand LT min 3V* [facility] Start: 09-19-2022 XR Hand - left GE 3 Views [facility] Start: 09-19-2022 CT cervical spine wi thout contrast CT cervical spine wo [facility] Start: 09-19-2022 CT Cervical spine WO contrast [facility] Start: 09-19-2022 CT Facial bones WO contrast [facility] Start: 09-19-2022 CT of facial bones without contrast CT facial bones wo con [facility] Start: 09-19-2022 CT of head without contrast CT head/brain wo con [facility] Start: 09-19-2022 CT Unspecified body region WO contrast [facility] Start: 09-19-2022 Plain X-ray of left hand XR hand LT min 3V* [facility] Start: 09-19-2022 Plain X-ray of right hip XR hi p RT min 2V(w/wo pelvis)* [facility] Start: 09-19-2022 Plain X-ray of right shoulder XR shoulder RT min 2V* [facility] Start: 09-19-2022 X-ray of left ankle XR ankle LT min 3V* [facility] Start: 09-19-2022 X-ray of left knee XR knee LT 2V [facility] Start: 09-19-2022 XR Ankle - left GE 3 Views [facility] Start: 09-19-2022 XR Hand - left GE 3 Views [facility] Start: 09-19-2022 XR Hip - right 2 Views [facility] Start: 09-19-2022 XR Knee - left 2 Views [facility] Start: 09-19-2022 XR Shoulder - right Views [facility] Start: 09-19-2022 Bacteria identified in Urine by Culture Urine Culture [facility] Start: 09-19-2022 Reposition Left Metacarpal, External Approach Reposition Left Metacarpal, External Approach [facility] Start: 06-20-2022 Influenza vaccination Influenza Vacc ine [...] COVID-19 Vaccine (#1) COVID-19 Vacci ne (#1) [facility] Start: 1936 Diabetic retinal eye exam Eye Exam [facility] Start: 1935 Urine screening for protein Microalbumin [facility] Start: 1936 Diabetic foot examination Foot Exam [facility] Start: 1935 Ejection Fraction Ejection Fraction [facility] Patient referral [facility] Work Phone: Renal function 2000 panel - Serum or Plasma [facility] Urnls dip stick/tabl et rgnt auto w/o microscopy URINALYSIS W/REFLEX CULTURE Lab STAT When Specimen Available/Needed for 1 Occurrences starting 09/04/[address] [facility] Work Phone: Comment on above: When Specimen Availa ble/Needed for 1 Occurrences starting 09/04/2022 US Kidney - bilateral [facility] Immunizations Immunization Date Immunization Notes Care Provider Fa cility 07-21-2024 zoster vaccine, live Yoko Helms MD Work Phone: [facility] 06-01-2024 COVID-19 mRNA Bivale nt Booster (Moderna) Yoko Helms MD Work Phone: [facility] 06-01-2024 Fluzone QIV High-Dos e 65YR+ Yoko Helms MD Work Phone: [facility] 09-03-2022 Hemoglobin A1C Oswaldo Cal DDS Work Phone: [facility] 07-12-2021 COVID-19 Vaccine Pfi zer - Documentation Purposes Only Yoko Helms Other [facility] 05-28-2021 influenza virus vaccine, split virus (incl. purified surface antigen) Yoko Helms Other [employer] Other 05-28-2021 influenza virus vaccine, unspecified formulation [facility] 11-21-2020 COVID-19 Vaccine Moderna - Documentation Purposes Only Yoko Helms Other [facility] 05-31-2018 influenza virus vaccine, split virus (incl. purified surface antigen) Yoko Helms Other [employer] Other 05-31-2018 influenza virus vaccine, unspecified formulation [facility] Payers Date Payer Category Payer Self-pay 2001 Medicare [id number] 1959 Medicare [id number] 2.1 [id number] 1959 Unknown [id number] 2.1 [id number] 1936 Unknown [id number] 2.16.8 40.1.587498.3.579.2.647 1936 Unknown [id number] 2.16.8 40.1.015477.3.579.2.647 1936 Unknown [id number] 2.16.8 40.1.045722.3.579.2.647 1936 Unknown [id number] 2.16.8 40.1.781158.3.579.2.647 1936 Unknown [id number] 2.16.8 40.1.284382.3.579.2.647 1936 Unknown [id number] 2.16.8 40.1.178587.3.579.2.647 1936 Unknown [id number] 2.16. 840.1.600851.3.579.2.732 1936 Unknown [id number] 2.16. 840.1.628843.3.579.2.732 1936 Unknown [id number] 2.16. 840.1.058405.3.579.2.732 1936 Unknown [id number] 2.16. 840.1.358633.3.579.2.732 1936 Unknown [id number] 2.16. 840.1.493250.3.579.2.732 1936 Unknown [id number] 2.16. 840.1.407250.3.579.2.732 1936 Unknown [id number] 2.16.84 0.1.709713.3.579.2.593 1936 Unknown [id number] 2.16.84 0.1.494727.3.579.2.593 1936 Unknown [id number] 2.16.84 0.1.980384.3.579.2.593 1936 Unknown [id number] 2.16.84 0.1.383389.3.579.2.593 1936 Unknown [id number] 2.16.84 0.1.239962.3.579.2.593 1936 Unknown [id number] 2.16.84 0.1.473293.3.579.2.593 1936 Unknown [id number] 2.16.84 0.1.885335.3.579.2.593 1936 Unknown [id number] 2.16.84 0.1.294902.3.579.2.593 1936 Unknown [id number] 2.16.84 0.1.697603.3.579.2.593 1936 Unknown [id number] 2.16.84 0.1.640029.3.579.2.593 1936 Unknown [id number] 2.16.84 0.1.398339.3.579.2.593 1936 Unknown [id number] 2.16.84 0.1.635385.3.579.2.593 1936 Unknown [id number] 2.16.84 0.1.407047.3.579.2.593 1936 Unknown [id number] 2.16.84 0.1.901884.3.579.2.593 Unknown [id number] 2.16.8 40.1.778472.3.579.2.531 Social History Date Type Detail Facility Sex Assigned At [employer] Other Tobacco smoking status NHIS Tobacco smoking consumption unknown [facility] Start: 1935 Sex Assigned At [facility] on file [facility] Start: 09-04-2022 End: 05-01-2025 Tobacco smoking status NHIS Never smoked tobacco [facility] Start: 09-04-2022 Alcohol intake Lifetime non-d deborah (finding) [facility] Start: 08-25-2022 End: 09-04-2022 Exposure to SARS-CoV-2 (event) Not sure [facility] Work Phone: Start: 1935 Sex Assigned At Female F [facility] Sex Female (finding) [facility] Medical Equipment Procedure Code Equipment Code Equipment Origin al Text Equipment Identifier Dates [id number] Start: 07-16-2022 Goals Date Patient Goal Desired Activity /State Functional Status Date Assessment Result Facility 09-24-2022 Functional status Patient is Pro gressing Toward Baseline [facility] Work Phone: Mental Status Date Assessment Result Facility 09-24-2022 Cognitive function Cognitive Sta tus Patient at Baseline [facility] Work Phone: Clinical Notes 06-10-2021 to 05-10-2025 Note Date & Type Note Facility 05-10-2025 Radiology Diagnostic study note [facility] [place] [address] Ultrasound Report Signed Patient: Eliz Hewitt MR#: [id number] : 1935 Acct:[id number] Age/Sex: 89 / F ADM Date: 5 Loc: Room: Type: [facility] Attending Dr: Maurisio Leon MD Ordering Provider: Maurisio Leon MD Date of Service: 05/10/25 US/US renal BI: D64.9 - Anemia, unspecified Copies to: Maurisio Leon MD~ Bilateral Renal Ultrasound HISTORY: Anemia. Chronic kidney disease stage IV COMPARISON: None RIGHT kidney measures 7.7 cm. LEFT kidney measures 8.8 cm. Hydronephrosis: None RENAL STONE: No shadowing renal calculus is seen. RENAL LESIONS: Bilateral renal cyst URINARY BLADDER: Unremarkable REPRODUCTIVE STRUCTURES Not assessed US/US renal BI IMPRESSION : No hydronephrosis. Impression dictated by: Jeremy Murray M.D. 05/10/2025 7:50 PM Dictation Location: [facility] Tech: Shantel Urias Transcribed By: [facility] 05/10/251949 Dictated By: Jeremy Murray DO 05/10/251949 Signed By: 05/10/251949 [facility] 03-29-2025 Evaluation note Diagnosis Onset Date Resolution Benign essential HTN acute March 29, 2025 2:10pm Chronic kidney disease (CKD), stage 4 acute March 29, 2025 2:10pm Conjunctivitis, right eye acute March 29, 2025 2:10pm Insulin use (long-term) in type 2 diabetes acute March 29 2:10pm Longstanding persistent atrial fibrillation acute March 29, 2 025 2:10pm Medicare annual wellness visit, subsequent acute March 29 2:10pm Type 2 diabetes mellitus with hyperglycemia acute March 29 2:10pm Anemia acute May 01, 2 025 8:04am Chronic kidney disease (CKD), stage 4 acute May 01 8:04am Diabetic nephropathy associated with type 2 diabetes mellitus acute May 01, 025 8:04am Hypertensive nephropathy acute May 01, 2025 8:04am Hypokalemia acute May 01, 2025 8:04am Localized edema acute May 012024 8:04am [facility] Work Phone: [phone] 758-491204-18-2025 NoteUT Cardiology - [facility] Jhonathan Hewitt is a 89 y.o. year old female patient being seen for 3 month follow up with Echo. Patient states she is a little tight chested, patient states it feels like something on it pressure on the left side. Patient states she has dyspnea with exertion. 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, mild, without behavioral disturbance, psychotic disturbance, mood disturbance, and anxiety ([facility]/HCC) Displaced fracture of base of fourth metacarpal [...] diabetes mellitus with diabetic chronic kidney disease ([facility]) Unspecified abnormalities of gait and mobility Unspecified bacterial pneumonia Injury of humerus Left humeral fracture Chronic kidney disease, unspecified CKD (chronic kidney disease) stage 3, GFR 30-59 ml/min ([facility]) Fall Foot drop, bilateral Benign essential HTN Corns and callosities Hammer toe Ingrowing nail Tinea unguium Cognitive communication disorder Family History Problem Relation Name Age of Onset Diabetes Mother Emphysema Father Social History Tobacco Use Smoking status: Never Smokeless tobacco: Never Substance Use Topics Alcohol use: Never Drug use: Never JULIO CESAR Wellington is seen in follow-up. She is an 89-year-old woman with prior history of bioprosthetic aortic valve replacement [21 mm C-E Magna pericardial valve] in 10/10/2008 due to severe aortic valve regurgitation with some degree of aortic valve stenosis. At that time her coronary angiogram showed no evidence of significant coronary disease. On 09/18/2021 while traveling in [place] she was admitted to the hospital with [...] with a TRISH and cardiac catheterization. The TRSIH demonstrated severe stenosis of the aortic valve [...] increased Lasix to 40 mg once daily. This was later increased to twice daily on 08/30/2024 during her clinic visit with MICHAEL Hewitt given that the right-sided pressures were severely elevated. At visit of 10/06/2024 I increased her furosemide to 40 mg 3 times daily. Today she reports that she still has dypsnea on exertion, NYHA class II. she however says that she can perform activities of daily living. She has mild lower extremity edema. No chest pain but she reports chest pressure. No palpitations. Review of Systems HENT: Positive for hearing loss. Cardiovascular: Positive for chest pain ( pressure ), dyspnea on exertion and (more content not included)...[facility]01-17-2025 Note [place] Cardiology - [facility] Subjective Eliz Hewitt is a 88 y.o. year old female patient being seen for 1 mo follow up chronic diastolic heart failure, aortic and mitral disoder, and pulmonary hypertension. Sera Hewitt CNP increased her lasix last month to 40mg bid. She says she's still breathing hard when she walks into the kitchen from her chair. Still has intermittent chest pressure , but denies chest pain. 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 Stage 3b chronic kidney disease (CMS/HCC) Chronic combined systolic and diastolic heart failure, NYHA class 2 (CMS/HCC) Altered mental status, unspecified Anemia, unspecified Atherosclerotic heart disease of [place] coronary artery without angina pectoris Cognitive communication [...] kidney disease) stage 3, GFR 30-59 ml/min ([facility]/HCC) Fall Foot drop, bilateral Benign essential HTN Corns and callosities Hammer toe Ingrowing nail Tinea unguium Family History Family history unknown: Yes Social History Tobacco Use Smoking status: Never Smokeless tobacco: Never Substance Use Topics Alcohol use: Never JULIO CESAR Wellington is seen in follow-up. 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 At that time her coronary angiogram showed no evidence of significant coronary disease. On 09/18/2021 while traveling in [place] she was admitted to the hospital with [...] increased Lasix to 40 mg once daily. This was later increased to twice daily on 08/30/2024 during her clinic visit with NON CATEG[employer] PRESCHO[employer] TE[employer]ER Brett Hewitt given that the right-sided pressures were severely elevated. Today she reports that she still has dypsnea on exertion, NYHA class II-III. She is not exerting herself too much. She has bilateral lower extremity edema. No palpitations. Review of Systems HENT: Positive for hearing loss. Cardiovascular: Positive for chest pain ( pressure ), dyspnea on exertion and leg swelling (intermittent, resolves by morning). Musculoskeletal: Positive for joint pain and muscle weakness. Neurological: Positive for num (more content not included)...[facility]12-11-2024 NoteCardiovascular Medicine [facility] SUBJECTIVE Chief Complaint Patient presents with Congestive Heart Failure Elizkaty Hewitt is a 88 y.o. female here for follow-up. 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 She has lasix ordered 40mg BID, she has been taking it once daily due to c/o urinating throughout the night. She is up 12# since we saw her 6 months ago. She has some LE edema. She has some dizziness with low blood sugars otherwise no issues. Denies c/o other CP, dyspnea, orthopnea, PND, palpitations, syncope. 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, mild, without behavioral disturbance, psychotic disturbance, mood disturbance, and anxiety ([facility]) Displaced fracture of base of fourth metacarpal bone, left hand, subsequent encounter for fracture with routine healing H/O aortic valve replacement History of falling Benign hypertensive cardiomyopathy with heart failure ([facility]) Kidney disease Muscle weakness (generalized) Myocardial infarction type 2 ([facility]) Pulmonary hypertension ([facility]) Non-rheumatic mitral valve stenosis Rhabdomyolysis Severe aortic stenosis Syncope Tachycardia, unspecified Diabetes mellitus ([facility]) Type 2 diabetes mellitus with diabetic chronic kidney disease ([facility]) Unspecified abnormalities of gait and mobility Unspecified bacterial pneumonia Injury of humerus Left humeral fracture Chronic kidney disease, unspecified CKD (chronic kidney disease) stage 3, GFR 30-59 ml/min ([facility]) Fall Foot drop, bilateral Benign essential HTN Corns and callosities Hammer toe Ingrowing nail Tinea unguium Past Medical History: Diagnosis Date Diabetes mellitus ([facility]) Hypertension Family History Family history unknown: Yes Social History Tobacco Use Smoking status: Never Smokeless tobacco: Never Substance Use Topics Alcohol use: Never Allergies Allergen Reactions Codeine Hives Hydrocodone-Acetaminophen Hydroxychloroquine GI intolerance Sulfamethoxazole-Trimethoprim Hives ROS HENT: Positive for hearing loss. Cardiovascular: Positive for chest pain ( pressure, uneasiness, but not pain ) and dyspnea on exertion. Musculoskeletal: Positive for joint pain and muscle weakness. Neurological: Positive for light-headedness, numbness and weakness. All other systems reviewed and are negative. OBJECTIVE Visit Vitals BP 142/72 (BP Location: Right arm, Patient Position: Sitting) Pulse 66 Ht 1.6 m (5' 3 ) Wt 70.3 kg (155 lb) SpO2 97% BMI 27.46 kg/m??? OB Status Postmenopausal Smoking Status Never BSA 1.77 m??? Medications: Current Outpatient Medications: aspirin 81 mg EC tablet, TAKE 1 TABLET BY MOUTH EVERY DAY IN THE MORNING, Disp: 90 tablet, Rfl: 3 Basaglar KwikPen U-100 Insulin 100 unit/mL (3 mL) injection pen, , Disp: , Rfl: Farxiga 10 mg, TAKE 1 TABLET BY MOUTH EVERY DAY IN THE MORNING, Disp: 30 tablet, Rfl: 11 furosemide (Lasix) 40 mg tablet, Take 1 tablet (40 mg) by mouth in the morning and at bedtime. (Patient taking differently: Take 40 mg by mouth in the morning.), Disp: 180 tablet, Rfl: 3 insulin detemir (Levemir U-100 Insulin) 100 unit/mL injection, Levemir U-100 Insulin 100 unit/mL subcutaneous solution INJECT 35 UNITS SUBCUTANEOUSLY ONCE A DAY, Disp: , Rfl: metoprolol succinate XL (Toprol-XL) 25 mg 24 hr tablet, TAKE 1 TABLET BY MOUTH EVERY DAY IN THE MORNING, Disp: 90 tablet, Rfl: 3 potassium chloride CR (K-Tab) 20 mEq ER tablet, TAKE 1 TABLET BY MOUTH EVERY DAY, Disp: 90 tablet, Rfl: 3 sildenafil (Revatio) 20 mg tablet, Take 1 tablet (20 mg) by mouth three times daily. Please hold Amlodipine if SBP <110, Call clinic for further instructions., Disp: 270 tablet, Rfl: 3 sodium bicarbonate 650 mg tablet, Take 325 mg by mouth in the morning and at bedtime., Disp: , Rfl: Physical Exam Vitals reviewed. Constitutional: Appearance: Normal appearance. She is normal weight. HENT: Head: Normocephalic and atraumatic. Right Ear: External ear normal. Left Ear: External ear normal. Eyes: Extraocular Movements: Extraocular movements intact. Conjunctiva/sclera: Conjunctiva (more content not included)...[facility]12-11-2024 NotePatient here for 6 mo follow up valve disorder s/p TAVR, pulmonary hypertension, and chronic diastolic heart failure. Had echo a few weeks ago. She's only been taking lasix once a day because of frequent urination. Denies chest pain, but says she still gets chest pressure, and uneasiness . Review of Systems HENT: Positive for hearing loss. Cardiovascular: Positive for chest pain ( pressure, uneasiness, but not pain ) and dyspnea on exertion. Musculoskeletal: Positive for joint pain and muscle weakness. Neurological: Positive for brief paralysis, light-headedness, numbness and weakness. All other systems reviewed and are negative.[facility] 03-03-2024 NoteUT Cardiology - [facility] Subjective Eliz [...] unspecified Anemia, unspecified Atherosclerotic heart disease of [place] coronary artery without angina pectoris Cognitive communication [...] coronary disease. On 09/18/2021 while traveling in [place] she was admitted to the hospital with [...] kg (143 lb) SpO2 (more content not included)...[facility]12-18-2023 Evaluation note* Encounter Date Diagnosis Assessment Notes [...] Systolic murmur (ICD-10 - R01.1) as above [employer] Other 12-18-2023 Evaluation note* Encounter Date Diagnosis [...] Systolic murmur (ICD-10 - R01.1) as above [employer] Other 09-18-2023 Evaluation note* Encounter Date Diagnosis Assessment Notes Treatment Notes Treatment Clinical Notes May, Left ear impacted cerumen (ICD-10 - H61.22) Cerumen removed w lighted tool and forceps- no water or irrigation. Large amount removed - pt tolerated well. Great improvement in hearing. [employer] Other 09-07-2023 Evaluation note* Encounter Date Diagnosis Assessment Notes Treatment Notes Treatment Clinical Notes May, Type 2 diabetes mellitus with diabetic chronic kidney disease (ICD-10 - E11.22) Decrease Basaglar to 25units. Reviewed home readings often less than 70. Pt notes symptoms of feeling jittery at times. May, Longstanding persistent atrial fibrillation (ICD-10 - I48.11) Pt does not have a followup w [facility] Cardio - would benefit from a checkup due to dyspnea and assessment of her increasingly prominent murmur May, Systolic murmur (ICD-10 - R01.1) as above. May, Impacted cerumen, bilateral (ICD-10 - H61.23) easily removed cerumen with device, not water pik from R ear. Unable to comfortably remove cerumen from L canal. Advised debrox and return if continues to have issue further treated. [employer] Other 05-08-2023 Evaluation note* Encounter Date Diagnosis [...] - D63.1) Monitor lab - chronic problem [employer] Other 03-13-2023 Evaluation note* Encounter Date Diagnosis [...] to call with any questions or concerns [employer] Other 02-07-2023 Evaluation note* Encounter Date Diagnosis [...] does check glucose at home. will monitor. [facility] specialist was asking specificially about A1C. [employer] Other 02-06-2023 Evaluation note* Encounter Date Diagnosis [...] move forward with treatment at this time. [employer] Other 01-18-2023 Evaluation note* Encounter Date Diagnosis [...] since recent hospitalization reviewed glucose levels. Sep, shelter (current) use of insulin (ICD-10 - Z79.4) Sep, Atherosclerosis of [place] coronary artery of [place] heart without angina pectoris (ICD-10 - I25.10) Has follow-up with cardiology scheduled. [employer] Other 01-04-2023 Discharge summary Author Donn Joseph [facility] September 23, 2022 4:20pm Note Date/Time September 23, 2022 4: 20pm [facility] [address] [place] [address] Discharge Summary Signed Patient: Eliz Hewitt MR#: [id number] : 1935 Acct:[id number] Age/Sex: 86 / F Adm Date: 2 Loc: 4 Room: [address] [place] [address]: Donn Joseph DO Copies to: [...] atrophy. She worked with PT/OT who recommended detention facility. The day prior to her discharge she developed some mild tachypnea and somnolence. Also was noted to be edematous. BNP was elevated and she was provided IV Lasix. She is breathing much easier now and will be discharged to detention facility. She did have some bilateral lower extremity weakness for which neurology was consulted. Her work-up was largely benign. She can consider EMG testing for this as an outpatient however at this time no further work-up is required. She will be discharged today in hemodynamically stable condition to detention facility. Physical Examination: GENERAL APPEARANCE: Alert, resting [...] % (Auto) 77.3, Lymph % (Auto) 10.4, Chaves % (Auto) 9.8, Eos % (Auto) 1.6, Baso % (Auto) 0.9, Nucleat RBC Rel Count 0.1, Neut # (Auto) 6.6, Lymph # (Auto) 0.9 L, Chaves # (Auto) 0.8, Eos # (Auto) 0.1, Baso # (Auto) 0.1 09/22/22 16:20: Urine Color Dark yellow A, Urine Appearance Cloudy A, Urine pH 5.5, Ur Specific [place] 1.025, Urine Protein 100 H, Urine Glucose [...] 15:10 Discharge Plan Discharge Plan Patient Disposition: [facility] Facility Diet: Diabetic Additional Instructions: SNF Physician [...] TABLET BY MOUTH EVERY DAY Follow Up: [facility] [Provider Group] - 09/28/22 2:30 pm (You have been scheduled for a follow up appointment with Dr. Pollard for the following date andtime, please call to reschedule if needed.) [facility] [place] [Outside] - 10/20/22 1:30 pm (With Kathy GOODMAN and Dr. Marsh) Yoko Helms MD [Primary Care Provider] - (Please call to schedule a follow up appointment with PCP upon discharge from SNF.) Documented By: Donn Joseph DO 09/23/22 16 15 Signed By: <Electronically signed by Donn Joseph DO> 09/23/22 1620 [facility] Work Phone: 1(735) 270-258401-04-2023 Progress note Author Donn Joseph [facility] September 23, 2022 4:09pm Note Date/Time September 23, 2022 4: 09pm [facility] [address] [place] [address] Hospitalist Progress Note Signed Patient: Eliz Hewitt MR#: [id number] : 1935 Acct:[id number] Age/Sex: 86 / F Adm Date: 2 Loc: Room: [address] [place] [address] Type: ADM IN Attending Dr: Donn Joseph [...] We will see if she qualifies for detention. Family is agreeable. Echocardiogram is pending. Formal [...] Responded well to IV fluids. Type II MA No chest pain/SOB or EKG changes DM [...] Allergies and Active Meds Allergies acetaminophen [From [place]] Allergy (Verified 09/20/22 02:12) Unknown Reaction codeine Allergy (Verified 09/20/22 02:12) Hives hydrocodone [From [place]] Allergy (Verified 09/20/22 02:12) Unknown Reaction hydroquinone Allergy (Verified 09/20/22 02:12) Unknown Reaction sulfamethoxazole [From Bactrim] Allergy (Verified 09/20/22 02:12) Unknown Reaction trimethoprim [From Bactrim] Allergy (Verified 09/20/22 02:12) Unknown Reaction Active Meds: Active Medications Generic Name Dose Route Start Last Admin Trade Name Addisonq PRN Reason Stop Dose Admin Acetaminophen 650 [...] Insuln.Pen SUBCUT 09/20/23 16:59 Not Given TID.WM.HS ZION Protocol Insulin Glargine 35 units 09/20/22 09:00 [...] <Electronically signed by Donn Joseph DO> 09/23/22 1606 [facility] Work Phone: [phone]) 806-106601-04-2023 Consult note Author Андрей Marsh [facility] September 23, 2022 3:12pm Note Date/Time September 23, 2022 9: 09am [facility] [address] [place] [address] Neurology Consult Note Signed Patient: Eliz Hewitt MR#: [id number] : 1935 Acct:[id number] Age/Sex: 86 / F Adm Date: 2 Loc: 4N Room: 4G3242-7 Type: ADM IN Attending Dr: Donn Joseph DO Copies to: Jodi Swift, ANP-C MD Donn Yoon DO Steven Benedict, MD~ HPI Consult Date: 09/23/22 Labor Relations Representative: MILES Quezada with Dr. Marsh Reason for [...] from her bed. She fell just before [place] as well. At that time she tripped [...] Medical History (Updated 09/23/22 @ 09:24 by YARY Quezada-) Diabetes mellitus, type 2 Hypertension Surgical History History of heart valve replacement History of surgery on arm Social History Smoking Status: Never smoker Substance Use Type: None Meds Medications and Allergies Allergies acetaminophen [From [place]] Allergy (Verified 09/20/22 02:12) Unknown Reaction codeine Allergy (Verified 09/20/22 02:12) Hives hydrocodone [From [place]] Allergy (Verified 09/20/22 02:12) Unknown Reaction hydroquinone [...] bilaterally. Proprioception is absent. CEREBELLAR EXAM: * [id number]-[id number] and alternating movements are intact and normal in bilateral upper extremities. Limited exam on the left due to splinting of the wrist and hand * Alternating movements are intact and normal in lower extremities REFLEX EXAM: * 1/4 throughout Results Laboratory Findings 09/22/22 16:30 09/22/22 16:30 Diagnostic Findings Imaging/Impressions: ITS Impressions Hip X-Ray 09/19/22 20:51 IMPRESSION: FOURTH METACARPAL FRACTURE OF THE LEFT HAND WITH IMPROVED ALIGNMENT ON POSTREDUCTION IMAGING. NO ACUTE FINDINGS ARE SEEN INVOLVING THE RIGHT HIP/PELVIS, RIGHT SHOULDER, CHEST, LEFT KNEE OR ANKLE.. Impression dictated by: Randy Vickers Jr., D.O.09/20/2022 9:30 AM Dictation Location: [place] [address] 09/19/22 21:53 IMPRESSION: NO ACUTE [...] Vickers Jr., D.O.09/20/2022 8:41 AM Dictation Location: [facility]04 Chest X-Ray 09/22/22 15:35 IMPRESSION: DEVELOPING BIBASILAR PLEURAL AND/OR PARENCHYMAL CHANGE, GREATER ON THE LEFT Impression dictated by: Maddie Miner M.D.09/22/2022 3:55 PM Dictation Location: [facility] 09/22/22 17:06 IMPRESSION: No acute intracranial pathology. Impression dictated by: Abram Baltazar M.D.09/22/2022 5:45 PM Dictation Location: [place] [address] Therapy Recommendations Therapy Recommendations: OT Recommendations OT Recommended Discharge [facility] Facility Location OT Recommended Services at Physical Therapy,Occupational Therapy Discharge PT Recommendations PT Recommended Discharge [facility] Facility Location PT Recommended Services at Physical [...] She did have a fall just before [place] as well when she tripped over a [...] the plan of care and confirmed the NON CATEGORICAL PRESCHOOL TEACHER note Patient is an 86-year-old female with [...] damage. Documented By: Андрей Marsh MD 09/23/22 0428 Signed By: <Electronically signed by MD Андрей Marsh> 09/23/22 3329 <Electronically signed by AMARJIT Swift> 09/23/22 1039 [facility] Work Phone: 1(268) 836-153201-04-2023 Hospital Discharge instructions Additional Instructions [facility] Physician to manage: - PT/OT to eval [...] clean with theraworx protect, apply large mepilex [facility] Work Phone: 1(410) 553-406201-03-2023 Progress note Author Donn Joseph [facility] September 22, 2022 7:14pm Note Date/Time September 22, 2022 7: 14pm [facility] [address] [place] [address] Hospitalist Progress Note Signed Patient: Eliz Hewitt MR#: [id number] : 1935 Acct:[id number] Age/Sex: 86 / F Adm Date: 2 Loc: 4N Room: [address] [place] [address] Type: ADM IN Attending Dr: Donn Joseph [...] We will see if she qualifies for detention. Family is agreeable. Echocardiogram is pending. Formal [...] Responded well to IV fluids. Type II MA No chest pain/SOB or EKG changes DM [...] Allergies and Active Meds Allergies acetaminophen [From [place]] Allergy (Verified 09/20/22 02:12) Unknown Reaction codeine Allergy (Verified 09/20/22 02:12) Hives hydrocodone [From [place]] Allergy (Verified 09/20/22 02:12) Unknown Reaction hydroquinone [...] <Electronically signed by Donn Joseph DO> 09/22/221913 [facility] Work Phone: 1(765) 291-544701-02-2023 Progress note Author Donn Joseph [facility] September 21, 2022 4:05pm Note Date/Time September 21, 2022 4: 05pm [facility] [address] [place] [address] Hospitalist Progress Note Signed Patient: Eliz Hewitt MR#: [id number] : 1935 Acct:[id number] Age/Sex: 86 / F Adm Date: 2 Loc: 4N Room: 6U4483-4 Type: ADM IN Attending Dr: Donn Joseph [...] We will see if she qualifies for detention. Family is agreeable. Echocardiogram is pending. Formal [...] Responded well to IV fluids. Type II MA No chest pain/SOB or EKG changes DM [...] Allergies and Active Meds Allergies acetaminophen [From [place]] Allergy (Verified 09/20/22 02:12) Unknown Reaction codeine Allergy (Verified 09/20/22 02:12) Hives hydrocodone [From [place]] Allergy (Verified 09/20/22 02:12) Unknown Reaction hydroquinone [...] Insuln.Pen SUBCUT 09/20/23 08:59 Not Given DAILY [facility] Metoprolol Succinate 25 mg 09/20/22 09:00 09/21/22 [...] <Electronically signed by Donn Joseph, > 09/21/22 1230 [facility] Work Phone: 1(902) 398-780701-01-2023 Progress note Author Dusty Singh [facility] September 20, 2022 4:29pm Note Date/Time September 20, 2022 12 :28pm [facility] [address] [place] [address] Hospitalist Progress Note Signed Patient: Eliz Hewitt MR#: [id number] : 1935 Acct:[id number] Age/Sex: 86 / F Adm Date: 2 Loc: Room: [address] [place] [address] Type: ADM IN Attending Dr: Dusty Singh [...] more day CK in am Type II MA No chest pain/SOB or EKG changes DM [...] Allergies and Active Meds Allergies acetaminophen [From [place]] Allergy (Verified 09/20/22 02:12) Unknown Reaction codeine Allergy (Verified 09/20/22 02:12) Hives hydrocodone [From [place]] Allergy (Verified 09/20/22 02:12) Unknown Reaction hydroquinone [...] Tablet.Dr PO 09/20/23 08:59 81 mg DAILY ZINO Administration Heparin Sodium (Porcine) 5,000 unit 09/20/22 [...] Flush Documented By: Dusty Singh MD 09/20/22 1229 Signed By: <Electronically signed by Dusty Singh MD> 09/20/22 2049 [facility] Work Phone: 1([phone]) 802-429801-01-2023 History and physical note Author Donn Joseph [facility] September 20, 2022 4:57am Note Date/Time September 20, 2022 4: 57am [facility] [address] [place] [address] Hospitalist H&P Signed Patient: Eliz Hewitt MR#: [id number] : 1935 Acct:[id number] Age/Sex: 86 / F Adm Date: 2 Loc: 4N Room: [address] [place] [address] Type: ADM IN Attending Dr: Donn Joseph DO Copies to: MD Donn Yoon, DO~ HPI DATE OF EXAMINATION: 09/20/22 CHIEF [...] fall the patient was admitted to the [facility] for further evaluation and treatment. Physical [...] Meds Medications and Allergies Allergies acetaminophen [From [place]] Allergy (Verified 09/20/22 02:12) Unknown Reaction codeine Allergy (Verified 09/20/22 02:12) Hives hydrocodone [From [place]] Allergy (Verified 09/20/22 02:12) Unknown Reaction hydroquinone [...] % (Auto) 4.4 % (.) 09/19/22 21:08 Chaves % (Auto) 6.7 % (.) 09/19/22 21:08 Eos % (Auto) 0.1 % (.) 09/19/22 21:08 Baso % (Auto) 0.6 % (.) 09/19/22 21:08 Nucleat RBC Rel Count 0.0 /100 WBC (0-0.5) 09/19/22 21:08 Neut # (Auto) 9.3 x10E3/uL (1.8-7.7) H 09/19/22 21:08 Lymph # (Auto) 0.5 x10E3/uL (1.00-4.8) L 09/19/22 21:08 Chaves # (Auto) 0.7 x10E3/uL (0.0-0.8) 09/19/22 21:08 [...] pH 6.5 (5.0-9.0) 09/19/22 21:00 Ur Specific [place] 1.026 (1.001-1.030) 09/19/22 21:00 Urine Protein 300 [...] <Electronically signed by Donn Joseph DO> 09/20/22 7142 [facility] Work Phone: 1(330) 973-601612-19-2022 Telephone encounter Note* Telephone Encounter - Tamera Calero - 09/07/2022 9:52 AM EST Patients johnnie Gaston calling in. He is following up from the ED Resident Consult. Patient was seen in ED/Admitted on 09/03/22. She was seen by Dental Resident Dr. Mccall. The resident recommended: patient has been advised to come to the [facility] for comprehensive evaluation and treatmentof teeth #5-#8. There are no appointments that [facility] can schedule into. Please reach out to Alek to assist with scheduling. [id number] Miscellaneous Notes* Telephone Encounter - Tamera Calero - 09/07/2022 9:52 AM EST Patients johnnie Gaston calling in. He is following up from the ED Resident Consult. Patient was seen in ED/Admitted on 09/03/22. She was seen by Dental Resident Dr. Mccall. The resident recommended: patient has been advised to come to the [facility] for comprehensive evaluation and treatmentof teeth #5-#8. There are no appointments that [facility] can schedule into. Please reach out to Alek to assist with scheduling. documented in this [id number] [address] Michael Hewitt Date of : 1935 86 [...] Referral Type: Service Level Authorization Referral Location: [facility] Number of Visits Requested: [...] osseous lesions. Multilevel (more content not included)...[facility] [id number] NoteED SW consulted by inpatient provider for home care referral as pt being discharged. Provider would like pt set up with home care prior to discharge. Provider referred to ED case manger to facilitate referral .[facility] [id number] History of Present illness Narrative* Praveena Alanis RN - 09/05/2022 10:28 AM EST UTILIZATION REVIEW AND STAFF BED STATUS CHANGE [facility] Utilization Review team and medical staff reviewed the clinical care for this patient using [facility] guidelines to determine appropriate bed status. The [...] original note were not included. Internal Medicine Alf Plan Note Michael Hewitt [id number] ACUTE02/23 Today's date: 09/04/2022 Admission date: 09/03/2022 [...] at this time. Rest of plan per international editorial producer note. Jaziel Madsen DO PGY-3 [phone] * Joya. Wilkins DO - 09/04/2022 12:02 [...] hypertension. Franky Moffett DO documented in this [id number] History of Present illness Narrative* Jessica Narayan LSW - 09/05/2022 8:31 AM EST ED SW consulted by inpatient provider for home care referral as pt being discharged. Provider wouldlike pt set up with home care prior to discharge. Provider referred to ED case manger to facilitate referral . documented in this [id number] NoteOCCUPATIONAL THERAPY INITIAL EVALUATION Patient seen from [...] kidney disease) stage 3, GFR 30-59 ml/min ([facility]) Essential (primary) hypertension Left humeral fracture Pulmonary hypertension (HCC) S/P aortic valve replacement with 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) Severe aortic regurgitation Severe mitral valve stenosis Type 2 diabetes mellitus without complication, with long-term current use of insulin ([facility]) PSH: Past Surgical History: Procedure Laterality [...] Available at Home: lives alone. Son reports 24/ assist available at d/c Patient lives in a 1 story home 2 stairs to enter. Full Bathroom on 1 level Bedroom on 1 level. Equipment available at home: cane, RW, [facility] OBJECTIVE: Patient Identification: patient's id band and [...] Dep Max Mod Min CG CS DS MA I Set-Up Comment Feeding x Grooming/Hygiene x Anticipate Bathing:UB x Simulated sponge bathing Bathing:LB x Anticipate Dressing:UB x Simulated with functional reach Dressing: LB x Anticipate. Attempt figure 4 positioning seated on gurney however gurney not completely flat and throwing off pt's balance. Toileting x Anticipate for clothing management Transfers/Bed Mobility: Assistance Level Dep Max Mod Min CG CS DS MA I Set-Up Comment Toilet Transfers x Anticipate based on chair transfer Bed Transfers x x Sit to stand from EOB. Stand pivot from bed to chair with b/l HIGH PRESSURE BOILER OPERATOR (CG x 2), slightly unsteady but [...] With Patients permission ordered no equipment via [employer] Order. If any questions contact [facility] DME Provider at [phone]. 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 Johnnie Gaston present, RN notified of pt position. DME: With Patients permission ordered no equipment via [employer] Order. If any questions contact [facility] DME Provider at [phone]. 6 Clicks Basic Mobility PT 09/04/2022 Difficulty [...] acute care): Patien (more content not included)...[facility] [id number] Consult note* Doretha Polk OT - 09/04/2022 [...] kidney disease) stage 3, GFR 30-59 ml/min ([facility]) Essential (primary) hypertension Left humeral fracture Pulmonary hypertension (HCC) S/P aortic valve replacement with 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) Severe aortic regurgitation Severe mitral valve stenosis Type 2 diabetes mellitus without complication, with long-term current use of insulin ([facility]) PSH: Past Surgical History: Procedure Laterality [...] Dep Max Mod Min CG CS DS MA I Set-Up Comment Feeding x Grooming/Hygiene x Anticipate Bathing:UB x Simulated sponge bathing Bathing:LB x Anticipate Dressing:UB x Simulated with functional reach Dressing: LB x Anticipate. Attempt figure 4 positioning seated on gurney however gurney not completely flat and throwing off pt's balance. Toileting x Anticipate for clothing management Transfers/Bed Mobility: Assistance Level Dep Max Mod Min CG CS DS MA I Set-Up Comment Toilet Transfers x Anticipate based on chair transfer Bed Transfers x x Sit to stand from EOB. Stand pivot from bed to chair with b/l HIGH PRESSURE BOILER OPERATOR (CG x 2), slightly unsteady but [...] With Patients permission ordered no equipment via [employer] Order. If any questions contact [employer] DME Provider at [phone]. 6 Clicks Daily Activity OT 09/04/22 Help [...] Guard Assist/Supervision 4 - Non = Modified [place]/Independent ASSESSMENT: Anticipate patient will be appropriate for [...] commode transfers with Distant supervision PLAN: Michael Tineoer will be seen 1-3 times a week. [...] NA = Not Assessed, I = Independent, MA = Modified Independent, Sup = Supervised, Set up = Physical Assistance for Set-up Only, Min = Minimal Assistance, Mod = Moderate Assistance, Max = Max assistance; Dep = Dependent; AROM = Active Range of Motion;PROM=Passive Rangeof Motion; MMT = Manual Muscle Test; UB = Upper Body; LB = Lower Body [id number] Consult note* Doretha Polk OT - 09/04/2022 [...] kidney disease) stage 3, GFR 30-59 ml/min ([facility]) Essential (primary) hypertension Left humeral fracture Pulmonary hypertension (HCC) S/P aortic valve replacement with 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) Severe aortic regurgitation Severe mitral valve stenosis Type 2 diabetes mellitus without complication, with long-term current use of insulin ([facility]) PSH: Past Surgical History: Procedure Laterality [...] Dep Max Mod Min CG CS DS MA I Set-Up Comment Feeding x Grooming/Hygiene x Anticipate Bathing:UB x Simulated sponge bathing Bathing:LB x Anticipate Dressing:UB x Simulated with functional reach Dressing: LB x Anticipate. Attempt figure 4 positioning seated on gurney however gurney not completely flat and throwing off pt's balance. Toileting x Anticipate for clothing management Transfers/Bed Mobility: Assistance Level Dep Max Mod Min CG CS DS MA I Set-Up Comment Toilet Transfers x Anticipate based on chair transfer Bed Transfers x x Sit to stand from EOB. Stand pivot from bed to chair with b/l HIGH PRESSURE BOILER OPERATOR (CG x 2), slightly unsteady but [...] With Patients permission ordered no equipment via [employer] Order. If any questions contact [facility] DME Provider at [phone]. 6 Clicks Daily Activity OT 09/04/22 Help [...] Guard Assist/Supervision 4 - Non = Modified [place]/Independent ASSESSMENT: Anticipate patient will be appropriate for discharge home with / family supervision for safe completion of ADLs/functional [...] NA = Not Assessed, I = Independent, MA = Modified Independent, Sup = Supervised, Set up = Physical Assistance for Set-up Only, Min = Minimal Assistance, Mod = Moderate Assistance, Max = Max assistance; Dep = Dependent; AROM = Active Range of Motion;PROM=Passive Rangeof Motion; MMT = Manual Muscle Test; UB = Upper Body; LB = Lower Body * Varsha Marroquin, PT - 09/04/2022 1:40 PM [...] it Patient Identified 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 Johnnie Gaston present, RN notified of pt position. DME: With Patients permission ordered no equipment via [employer] Order. If any questions contact [facility] DME Provider at [phone]. 6 Clicks Basic Mobility PT 09/04/2022 Difficulty [...] NA = Not Assessed, I = Independent, MA = Modified Independent, Sup = Supervised, Set [...] to get a comprehensive examination done at [facility] office. Panoramic and full mouth series of radiographs needed for definitive diagnosis. Follow-up [facility] Dentistry office after patient gets discharged from ED Patito Sorenson DDS * Elier Camarillo MD - 09/03/2022 9:20 PM EST PLASTIC SURGERY FACIAL TRAUMA CONSULT Name: Michael Hewitt : 1935 HPI This 86 year old female date of injury was 09/03/2022. The patient was transported to [facility] by EMS. Initial evaluation at [facility]. 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 If any questions contact [facility] DME Provider at [phone]. 6 Clicks Basic Mobility PT 09/04/2022 Difficulty [...] NA = Not Assessed, I = Independent, MA = Modified Independent, Sup = Supervised, Set up = Physical Assistance for Set-up Only, Min = Minimal Assistance, Mod = Moderate Assistance, Max = Max assistance; Dep = Dependent; AROM = Active Range of Motion; PROM = Passive Range of Motion; MMT = Manual Muscle Test; LE = Lower Extremity [id number] History and physical note* Norm Olea MD - 09/04/2022 2:58 AM EST Images from the original note were not included. INTERNAL MEDICINE HISTORY AND PHYSICAL Patient: Michael Hewitt : 1935 Sex: female Room: [facility]/ Admit Date: 09/03/2022 Today's Date: 09/04/2022 Length [...] Olea MD Internal Medicine - PGY-1 Pager: [phone] Associated attestation - Juan Starkey MD - 09/04/2022 2:36 PM EST Teaching Physician Note: I saw and evaluated the patient. I personally obtained the haskins and critical portions of the historyand physical exam. I reviewed the resident's documentation and discussed the patient with the resident. I agree with the resident's medical decision making as documented in the resident's note. Juan Starkey MD [id number] History and physical note* Norm Olea MD - 09/04/2022 2:58 AM EST Images from the original note were not included. INTERNAL MEDICINE HISTORY AND PHYSICAL Patient: Michael Hewitt : 1935 Sex: female Room: ACUTE06/06 Admit Date: 09/03/2022 Today's Date: 09/04/2022 Length [...] kidney disease) stage 3, GFR 30-59 ml/min ([facility]) Essential (primary) hypertension Left humeral fracture Pulmonary hypertension (HCC) S/P aortic valve replacement with 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) Severe aortic regurgitation Severe mitral valve stenosis Type 2 diabetes mellitus without complication, with long-term current use of insulin ([facility]) Past Surgical History: Procedure Laterality Date [...] by mouth. furosemide (LASIX) 20 MG tablet [employer] Ultra strip USE 1 STRIP TO TEST [...] Olea MD Internal Medicine - PGY-1 Pager: [phone] Associated attestation - Juan Starkey MD - [...] Wilkins., DO - 09/03/2022 8:[address] [facility] DIV[facility] OF ACUTE CARE SURGERY TRAUMA SURGERY HISTORY AND PHYSICAL Michael Hewitt [id number] 09/03/22 BASIC INJURY INFORMATION: Level of activation: Category 2 Trauma Mode of transport: Ambulance: EMS Mechanism of injury: Fall from ground level Complicating features: Not applicable Protective measures: Not applicable Date of Injury: 09/03/2022 Time of Injury: Today Patient origin: Transfer from outside facility HISTORY OF PRESENT INJURY: Michael Hewitt is a 86 year old female brought in by EMS from [facility] following a fall with traumatic injuries. Patient [...] status: Single Living status: Home Primary language: Portuguese Functional status: Independent Impairments: None Assistive Devices [...] female who presented to the ED from [facility] for trauma evaluation after she was [...] evaluation. Dentistry also recommends outpatient exam at [facility]. CTA chest without PE or traumatic injuries. [...] and Emergency General Surgery Department of Surgery [facility] documented in this [id number] Hospital Discharge instructions* Discharge Instructions* Onelia Anthony MD - 09/04/2022 1:53 AM EST Please make sure to follow up with the therapy services that we are ordering for you. You will needHome PT/OT. Per the [facility] PT/OT you will need 24/7 family supervision for safe completion of ADLs/functional [...] recommended. Please make sure to go to [facility] for comprehensive evaluation and treatment of teeth #5-#8. [phone]. [address] [place] [address]. We will discontinue your Lasix and Potassium supplementation as your kidney function is not improved. We have ordered a BMP for you to go have drawn at any [facility] facility within the next week. If you feel like your breathing is worse or legs are more swollen, please call your primary care provider in regards to Lasix. documented in this [id number] Physician Emergency department Note* Tucekr Bucio MD - 09/03/2022 10:37 PM EST [...] patient to the floor. Tucker Bucio MD [facility] Work Phone: 1(196) 758-227612-15-2022 Emergency department Note* Tucker Bucio MD - 09/03/2022 10:37 PM EST MS BLANCA 86 female cat 2 transfer form [facility]. [...] and medical decision making performed by me. Dr. Melo, Laurie. MEDICAL DECISION MAKING and ED COURSE Nursing triage and assessment notes reviewed and incorporated Evaluated by EM attending Nurys Read Course: ED Course as of 09/04/22 230 Bhumi Sep 03, 20222112 Vitals reviewed, patient [...] to get a comprehensive examination done at [facility]. Panoramic and full mouth series [...] separate report for CTA chest 09/03/2022 [MS] 230 CT Abd/Pelvis Ed I/V [place] With Contrast [...] hypoxia. Nurys Read MD documented in this [id number] Emergency department Note* Joby Whitehead - 09/03/2022 9:50 PM EST /KAYLEIGH READ notified of critical Troponin value of 79. Hard copy of results given to . [id number] Consult note* Patito Sorenson DDS - 09/03/2022 [...] to get a comprehensive examination done at [facility]. Panoramic and full mouth series of radiographs needed for definitive diagnosis. Follow-up [facility] Dentistry office after patient gets discharged from ED Patito Sorenson DDS [facility] Work Phone: 1(110) 839-503512-15-2022 History of Present illness Narrative* Pita Davidson LISW-S - 09/03/2022 9:25 PM EST Pt a 86 yo F, CAT 2 trauma, presenting via [facility] from [facility] s/p fall forward vs her face with aveolar ridge fx and traumatic teeth extraction. Pt was at the grocery store and was dizzy at the time of the fall. Presenting to the ED is son Alek Hewitt ([phone]). SW providing emotional support and reuniting son with pt bedside. MARY ALICE Barrett, [facility] documented in this [id number] Consult note* Elier Camarillo MD - 09/03/2022 9:20 PM EST PLASTIC SURGERY FACIAL TRAUMA CONSULT Name: Michael Hewitt : 1935 HPI This 86 year old female date of injury was 09/03/2022. The patient was transported to [facility] by EMS. Initial evaluation at [facility]. Patient fell from standing at the grocery [...] with the attending Plastic Surgery Staff On-Call: Angeliajamey Hewitt [phone] Elier Camarillo MD Plastic Surgery PGY-6 Service pager [phone] [id number] Emergency department Triage note* Delores Gaines RN - 09/03/2022 8:54 PM EST Prehospital Medications: 0.5mg dilaudid 4mg zofran [id number] History and physical note* Joya. Franky, - 09/03/2022 8:[address] [facility] DIV[facility] OF ACUTE CARE SURGERY TRAUMA SURGERY HISTORY AND PHYSICAL Michael Hewitt [id number] 09/03/22 BASIC INJURY INFORMATION: Level of activation: Category 2 Trauma Mode of transport: Ambulance: EMS Mechanism of injury: Fall from ground level Complicating features: Not applicable Protective measures: Not applicable Date of Injury: 09/03/2022 Time of Injury: Today Patient origin: Transfer from outside facility HISTORY OF PRESENT INJURY: Michael Hewitt is a 86 year old female brought in by EMS from [facility] following a fall with traumatic injuries. Patient [...] status: Single Living status: Home Primary language: Portuguese Functional status: Independent Impairments: None Assistive Devices [...] female who presented to the ED from [facility] for trauma evaluation after she was [...] evaluation. Dentistry also recommends outpatient exam at [facility]. CTA chest without PE or traumatic injuries. [...] and Emergency General Surgery Department of Surgery [facility]12-15-2022 Emergency department Triage note* Delores Gaines RN - 09/03/2022 8:52 PM EST 86F, felt dizzy while at grocery store, fell from standing onto face [id number] Physician Emergency department Note* Nurys Read MD [...] to get a comprehensive examination done at [facility]. Panoramic and full mouth series [...] mitral annular calcifications. [MS] WedSep 04, 2022 005 BP(!): 131/109 [MS] 0054 Temperature: 97.6 F [...] and workup of hypoxia. Nurys Read MD [facility] Work Phone: 1(545) 980-735408-31-2022 NotePROCEDURE: XR HUMERUS LT MIN 2V HISTORY: [...] Electronically authenticated by: АНДРЕЙ CHAPARRO Date: 2022-05-20 13:49[facility]08-27-2022 NoteMR#: [id number] [facility] Pt. Name: Eliz Hewitt Admitted: 05/15/2022 [...] Alonzo MD Date Trans: 05/16/2022 11:03 A/rabia [id number] cc: Yoko Helms M.D. [address] [place] [address] [place], [place] [address]8-03-2022 Note PROCEDURE: XR SHOULDER LT 2V or [...] Electronically authenticated by: АНДРЕЙ CHAPARRO Date: 2022-04-22 08:07[facility]08-02-2022 Evaluation note* Encounter Date Diagnosis Assessment [...] follow up with Dr. Pollard in office. Production Hand is Dr. Arellano with [place] May call Alek (son) to discuss options [phone] [employer] Other 04-28-2022 NoteMR#: [id number] [facility] Pt. Name: Eliz Hewitt Admitted: 01/13/2022 [...] prescribed. 2. Follow up with Dr. Arellano, [place] Cardiology and Dr. Gregory, [place] surgery in 1 month for post TAVR [...] Dotson MD Date Trans: 01/15/2022 05:59 A/rabia [id number] [facility]11-04-2021 Evaluation note* Encounter Date Diagnosis Assessment Notes Treatment Notes Treatment Clinical Notes Jul, Other closed nondisplaced fracture of proximal end of left humerus with routine healing, subsequent encounter (ICD-10 - S42.295D) Patient is progressing well from this injury. We discussed the importance of continuing to work on range of motion and strength exercise. Call with questions or concerns [employer] Other 09-21-2021 Evaluation note* Encounter Date Diagnosis Assessment Notes Treatment Notes Treatment Clinical Notes May, Other closed nondisplaced fracture of proximal end of left humerus with routine healing, subsequent encounter (ICD-10 - S42.295D) Radiographs reviewed with patient and company. Advised she is progressing well. Continue motion and strengthening exercises. Activity as tolerated. Call with questions/concerns. [employer] Other Consult note Author Андрей Marsh [facility] September 23, 2022 3:12pm Note Date/Time September 23, 2022 9: 09am [facility] [address] [place] [address] Neurology Consult Note Signed Patient: Eliz Hewitt MR#: [id number] : 1935 Acct:[id number] Age/Sex: 86 / F Adm Date: 2 Loc: Room: [address] [place] [address] Type: ADM IN Attending Dr: Donn Joseph DO Copies to: YARY Dunbar-MD Donn Oviedo DO Steven Benedict, MD~ HPI Consult Date: 09/23/22 Labor Relations Representative: MILES Quezada with Dr. Marsh Reason for [...] Medical History (Updated 09/23/22 @ 09:24 by YARY Quezada-) Diabetes mellitus, type 2 Hypertension Surgical History History of heart valve replacement History of surgery on arm Social History Smoking Status: Never smoker Substance Use Type: None Meds Medications and Allergies Allergies acetaminophen [From [place]] Allergy (Verified 09/20/22 02:12) Unknown Reaction codeine Allergy (Verified 09/20/22 02:12) Hives hydrocodone [From [place]] Allergy (Verified 09/20/22 02:12) Unknown Reaction hydroquinone [...] bilaterally. Proprioception is absent. CEREBELLAR EXAM: * Awunvd-bs-lhpu and alternating movements are intact and normal in bilateral upper extremities. Limited exam on the left due to splinting of the wrist and hand * Alternating movements are intact and normal in lower extremities REFLEX EXAM: * 1 throughout Results Laboratory Findings 09/22/22 16:30 09/22/22 16:30 Diagnostic Findings Imaging/Impressions: ITS Impressions Hip X-Ray 09/19/22 20:51 IMPRESSION: FOURTH METACARPAL FRACTURE OF THE LEFT HAND WITH IMPROVED ALIGNMENT ON POSTREDUCTION IMAGING. NO ACUTE FINDINGS ARE SEEN INVOLVING THE RIGHT HIP/PELVIS, RIGHT SHOULDER, CHEST, LEFT KNEE OR ANKLE.. Impression dictated by: Randy Vickers Jr., D.O.09/20/2022 9:30 AM Dictation Location: [facility]- Head CT 09/19/22 21:53 IMPRESSION: NO ACUTE [...] Vickers Jr., D.O.09/20/2022 8:41 AM Dictation Location: [place] [address] Chest X-Ray 09/22/22 15:35 IMPRESSION: DEVELOPING BIBASILAR PLEURAL AND/OR PARENCHYMAL CHANGE, GREATER ON THE LEFT Impression dictated by: Maddie Miner M.D.09/22/2022 3:55 PM Dictation Location: [place] [address] 09/22/22 17:06 IMPRESSION: No acute intracranial pathology. 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 She worked with PT/OT who recommended detention facility. The day prior to her discharge she developed some mild tachypnea and somnolence. Also was noted to be edematous. BNP was elevated and she was provided IV Lasix. She is breathing much easier now and will be discharged to detention facility. She did have some bilateral lower extremity weakness for which neurology was consulted. Her work-up was largely benign. She can consider EMG testing for this as an outpatient however at this time no further work-up is required. She will be discharged today in hemodynamically stable condition to detention facility. Physical Examination: GENERAL APPEARANCE: Alert, resting [...] % (Auto) 77.3, Lymph % (Auto) 10.4, [place] % (Auto) 9.8, Eos % (Auto) 1.6, Baso % (Auto) 0.9, Nucleat RBC Rel Count 0.1, Neut # (Auto) 6.6, Lymph # (Auto) 0.9 L, [place] # (Auto) 0.8, Eos # (Auto) 0.1, Baso # (Auto) 0.1 09/22/22 16:20: Urine Color Dark yellow A, Urine Appearance Cloudy A, Urine pH 5.5, Ur Specific [place] 1.025, Urine Protein 100 H, Urine Glucose [...] 15:10 Discharge Plan Discharge Plan Patient Disposition: [facility] Facility Diet: Diabetic Additional Instructions: SNF Physician [...] TABLET BY MOUTH EVERY DAY Follow Up: [facility] [Provider Group] - 09/28/22 2:30 pm (You have been scheduled for a follow up appointment with Dr. Pollard for the following date andtime, please call to reschedule if needed.) [facility] [place] [Outside] - 10/20/22 1:30 pm (With Kathy GOODMAN and Dr. Marsh) Yoko Helms MD [Primary Care Provider] - (Please call to schedule a follow up appointment with PCP upon discharge from [facility] Documented By: Donn Joseph DO 09/23/22 16 15 Signed By: <Electronically signed by Donn Joseph DO> 09/23/22 8040 [facility] Work Phone: Evaluation noteNo [employer] Other Evaluation note* Diagnosis Syncope, unspecified syncope type- Primary Fall Unspecified fall Hypoxia Hypoxemia Acute pulmonary edema (HCC) Acute edema of lung, unspecified Bradycardia, unspecified Other hypertrophic cardiomyopathy (HCC) Other hypertrophic cardiomyopathy [facility] Diagnosis Onset Date Resolution Status Fall acute Fracture of fourth metacarpal bone acute [facility] Work Phone: Evaluation note* Diagnosis Onset Date Resolution Status Fall acute Foot drop, bilateral acute Fracture of fourth metacarpal bone acute [facility] Work Phone: Evaluation note* Diagnosis Onset Date Resolution Status Benign essential HTN acute Chronic kidney disease, stage 3b acute Diabetes mellitus, type 2 ac [place] [facility] Work Phone: Evaluation noteNo assessment information available [facility] Work Phone: History and physical note Author Donn Joseph [facility] September 20, 2022 4:57am Note Date/Time September 20, 2022 4: 57am [facility] [address] [place] [address] Hospitalist H&P Signed Patient: Eliz Hewitt MR#: [id number] : 1935 Acct:[id number] Age/Sex: 86 / F Adm Date: 2 Loc: 4N Room: 8U3134-5 Type: ADM IN Attending Dr: Donn Joseph DO Copies to: MD Donn Yoon, DO~ HPI DATE OF EXAMINATION: 09/20/22 CHIEF [...] fall the patient was admitted to the [facility] for further evaluation and treatment. Physical [...] Meds Medications and Allergies Allergies acetaminophen [From [place]] Allergy (Verified 09/20/22 02:12) Unknown Reaction codeine Allergy (Verified 09/20/22 02:12) Hives hydrocodone [From [place]] Allergy (Verified 09/20/22 02:12) Unknown Reaction hydroquinone [...] % (Auto) 4.4 % (.) 09/19/22 21:08 Chaves % (Auto) 6.7 % (.) 09/19/22 21:08 Eos % (Auto) 0.1 % (.) 09/19/22 21:08 Baso % (Auto) 0.6 % (.) 09/19/22 21:08 Nucleat RBC Rel Count 0.0 /100 WBC (0-0.5) 09/19/22 21:08 Neut # (Auto) 9.3 x10E3/uL (1.8-7.7) H 09/19/22 21:08 Lymph # (Auto) 0.5 x10E3/uL (1.00-4.8) L 09/19/22 21:08 Chaves # (Auto) 0.7 x10E3/uL (0.0-0.8) 09/19/22 21:08 [...] pH 6.5 (5.0-9.0) 09/19/22 21:00 Ur Specific [place] 1.026 (1.001-1.030) 09/19/22 21:00 Urine Protein 300 [...] By: <Electronically signed by Donn Joseph, > 09/20/22 0457 [facility] Work Phone: Hisotep general Narrative - Reported* Type Description Date Surgical History appendix Surgical History gall bladder Surgical History hysterectomy Surgical History carpal tunnel release Surgical History torsel tunnel Surgical History heart [employer] Other Hisjofv general Narrative - Reported* Type Description Date Medical History high cholesterol Medical History heart disease Medical History high blood pressure Medical History diabetes mallitus Surgical History appendix Surgical History gall bladder Surgical History hysterectomy Surgical History carpal tunnel release Surgical History torsel tunnel Surgical History heart [employer] Other Hiskrko general Narrative - Reported* Type Description Date Medical History high cholesterol Medical History heart disease Medical History high blood pressure Medical History diabetes mallitus Surgical History appendix Surgical History gall bladder Surgical History hysterectomy Surgical History carpal tunnel release Surgical History torsel tunnel Surgical History heart Hospitalization History SEE SURGICAL HX [employer] Other Hiseivn general Narrative - Reported* Type Description Date Medical History high cholesterol Medical History heart disease Medical History high blood pressure Medical History diabetes mallitus Surgical History appendix Surgical History gall bladder Surgical History hysterectomy Surgical History carpal tunnel release Surgical History torsel tunnel Surgical History heart Surgical History Heart cath Hospitalization History SEE SURGICAL HX [employer] Other Progress note Author Dusty Singh [facility] September 20, 2022 4:29pm Note Date/Time September 20, 2022 12 :28pm [facility] [address] [place] [address] Hospitalist Progress Note Signed Patient: Eliz Hewitt MR#: [id number] : 1935 Acct:[id number] Age/Sex: 86 / F Adm Date: 2 Loc: 4N Room: [id number] Type: ADM IN Attending Dr: Dusty Singh [...] more day CK in am Type II MA No chest pain/SOB or EKG changes DM [...] Allergies and Active Meds Allergies acetaminophen [From [place]] Allergy (Verified 09/20/22 02:12) Unknown Reaction codeine Allergy (Verified 09/20/22 02:12) Hives hydrocodone [From [place]] Allergy (Verified 09/20/22 02:12) Unknown Reaction hydroquinone [...] signed by Dusty Singh MD> 09/20/22 1629 [facility] Work Phone: Progress note Author Donn Joseph [facility] September 21, 2022 4:05pm Note Date/Time September 21, 2022 4: 05pm [facility] [address] [place] [address] Hospitalist Progress Note Signed Patient: Eliz Hewitt MR#: [id number] : 1935 Acct:[id number] Age/Sex: 86 / F Adm Date: 2 Loc: 4N Room: [address] [place] [address] Type: ADM IN Attending Dr: Donn Joseph [...] We will see if she qualifies for detention. Family is agreeable. Echocardiogram is pending. Formal [...] Responded well to IV fluids. Type II MA No chest pain/SOB or EKG changes DM [...] Allergies and Active Meds Allergies acetaminophen [From [place]] Allergy (Verified 09/20/22 02:12) Unknown Reaction codeine Allergy (Verified 09/20/22 02:12) Hives hydrocodone [From [place]] Allergy (Verified 09/20/22 02:12) Unknown Reaction hydroquinone [...] <Electronically signed by Donn Joseph DO> 09/21/22 3580 [facility] Work Phone: Progress note Author Donn Joseph [facility] September 22, 2022 7:14pm Note Date/Time September 22, 2022 7: 14pm [facility] [address] [place] [address] Hospitalist Progress Note Signed Patient: Eliz Hewitt MR#: [id number] : 1935 Acct:[id number] Age/Sex: 86 / F Adm Date: 2 Loc: Room: [id number] Type: ADM IN Attending Dr: Donn Joseph [...] We will see if she qualifies for detention. Family is agreeable. Echocardiogram is pending. Formal [...] Responded well to IV fluids. Type II MA No chest pain/SOB or EKG changes DM [...] Allergies and Active Meds Allergies acetaminophen [From [place]] Allergy (Verified 09/20/22 02:12) Unknown Reaction codeine Allergy (Verified 09/20/22 02:12) Hives hydrocodone [From [place]] Allergy (Verified 09/20/22 02:12) Unknown Reaction hydroquinone [...] By: <Electronically signed by Donn Joseph DO> 09/22/22 444 [facility] Work Phone: Progress note Author Donn Joseph [facility] September 23, 2022 4:09pm Note Date/Time September 23, 2022 4: 09pm [facility] [address] [place] [address] Hospitalist Progress Note Signed Patient: Eliz Hewitt MR#: [id number] : 1935 Acct:[id number] Age/Sex: 86 / F Adm Date: 2 Loc: Room: [address] [place] [address] Type: ADM IN Attending Dr: Donn Joseph [...] We will see if she qualifies for detention. Family is agreeable. Echocardiogram is pending. Formal [...] Responded well to IV fluids. Type II MA No chest pain/SOB or EKG changes DM [...] Allergies and Active Meds Allergies acetaminophen [From [place]] Allergy (Verified 09/20/22 02:12) Unknown Reaction codeine Allergy (Verified 09/20/22 02:12) Hives hydrocodone [From [place]] Allergy (Verified 09/20/22 02:12) Unknown Reaction hydroquinone [...] Ml Insuln.Pen SUBCUT 09/20/23 16:59 Not Given TID.[facility] Protocol Insulin Glargine 35 units 09/20/22 09:00 [...] By: <Electronically signed by Donn Joseph, > 09/23/22 1609 [facility] Work Phone: Reason for referral (narrative)No reason for referral information availableVan [facility] Work Phone: Summary Purpose Family History No Family History Records Found Relationship Condition Age at Onset Recorded Date/T vanna father Unknown Not Specified Unknown Relationship Condition Age at Onset Recorded Date/T vanna father Unknown mother Unknown Advance Directives No Advanced Directives Records FoundLatest [...] Syncope, unspecified syncope type Juan Starkey MD [address] [place], [place] [id number] [facility] Referral ID Status Reason Start Date Expiration Date V isits Requested Visits Authorized [id number] Authorized 09/05/2022 09/05/2023 3 3 Question Answer Are you the patient's PCP? No Will you be following the patient while they are recieving [facility] services No Who will follow patient outside of the hospital setting, be signing the 485 and communicating with homecare? PCP Was the patient seen today for a Home Care wyiv-ko-vmfm evaluation? No What is the qualifying diagnosis for the [facility] Services? syncope Which [facility] services are needed? Physical Therapy, Occupational Therapy Reason for [facility] services? assessment for improvement/stability of adherence to health care plan, assessment for improvements/stability of medical condition, improvement of ADLs, medication teaching/adherence Reason the patient is homebound leaving their residence would require the assistance of another person, pain, weakness, and/or musculoskeletal dysfunction Specialty Diagnoses / Procedures Referred By Contact Referred To Contact Cardiovascular Testing INPATIENT DEPARTMENTS [address] [place] [id number] [facility] CARD NON INVASIVE [address] [place] [address] Referral ID Status Reason Start Date Expiration [...] call the [facility] at [phone] (BEAT) if you are unable to keep [...] mellitus, type 2 Chief Complaint 4 month CC Adult Risk Stratification 3 month f/u Reason for Visit Benign essential HTN Chronic kidney disease, stage 3b Diabetes mellitus, type 2 Chief Complaint Admit Date wellness March 29, 2025 2:10 pm Chief Complaint Admit Date wellness March 29, 2025 2:10 pm ckd 4 May 01, 2025 8: 04am Reason for Visit Admit Date Benign essential HTN March 29, 2025 2:1 0pm Chronic kidney disease (CKD), stage 4 Ju 2024 2:10pm Conjunctivitis, right eye March 29 2:10pm Insulin use (long-term) in type 2 diabet es March 29, 2025 2:10pm Longstanding persistent atrial fibrillat ion March 29, 2025 2:10pm Medicare annual wellness visit, subseque nt March 29, 2025 2:10pm Type 2 diabetes mellitus with hyperglyce leanna March 29, 2025 2:10pm Anemia May 01, 2025 8: 04am Chronic kidney disease (CKD), stage 4 Au 2024 8:04am 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 no thinners [facility] [address] [place] [address] Phone: [phone] [facility] [address] [place] [address] Phone: [phone] Referral ID Status Reason Start Date Expiration Date Visits Re quested Visits Authorized [id number] 3 INFORMATION SOURCE (unrecogn ized section and content) DATE CREATED AUTHOR 05/29/2022 [facility] DATE CREATED AUTHOR AUTHOR'S ORGANIZ ATION 10/05/2022 [facility] DATE CREATED AUTHOR AUTHOR'S ORGANIZ ATION 01/18/2023 [facility] DATE CREATED AUTHOR AUTHOR'S ORGANIZ ATION 01/07/2025 [facility] DATE CREATED AUTHOR AUTHOR'S ORGANIZ ATION 05/12/2025 [facility] Care Teams (unrecognized sec tion and content) Team Status: Active Member Role Status Dates Yoko Helms MD Primary Care Provider Active Team Status: Inactive Member Role Status Dates Yoko Helms MD Primary Care Provide r, Attending Provider Active Start: May 08, 2024 End: May 08, 2024 Team Status: Active Member Role Status Dates Yoko Helms MD Primary Care Provide r, Attending Provider Active Start: July 17, 2024 Team Status: Active Member Role Status Dates Yoko Helms MD Primary Care Provide r, Attending Provider Active Start: July 21, 2024 Team Status: Inactive Member Role Status Dates Yoko Helms MD Primary Care Provide r, Attending Provider Active Start: July 24, 2024 End: July 24, 2024 Team Status: Active Member Role Status Dates Yoko Helms MD Primary Care Provide r, Attending Provider Active Start: December 01, 2023 Team Status: Inactive Member Role Status Dates Yoko Helms MD Primary Care Provide r, Attending Provider Active Start: January 04, 2024 End: January 04, 2024 [employer] P[employer] Maker Relationship Specialty Start Date End Date Yoko Helms MD [address] [facility] [place] [address] PCP - General Family Medicine 09/03/22 [employer]ato Paste Maker Relationship Specialty Start Date End Date Yoko Helms MD [address] [place] [facility] [place] [address] PCP - General Family Medicine 09/03/22 Tomato Paste Maker Relationship Specialty Start Date End Date Yoko Helms MD [address] [place] [facility] [place] [address] PCP - General Family Medicine 09/03/22 Tomato Paste Maker Relationship Specialty Start Date End Date Yoko Helms MD [address] [place] [facility] [place] [address] PCP - General Family Medicine 09/03/22 Tomato Paste Maker Relationship Specialty Start Date End Date Yoko Helms MD [address] [place] [facility] [place] [address] PCP - General Family Medicine 09/05/22 Team [...] You APRN Other Provider Active Maria Atkinson NP-C Other Provider Active Team Status: Inactive Member Role Status Dates Yoko Helms MD Primary Care Provider Active Asad Pollard , DO Attending Provider Active Team Status: Active Member Role Status Dates Yoko Helms MD Primary Care Provider Active Start: April 05, 2024 Tanisha Arellano MD Attending Provider Active Start: April 05, 2024 Team Status: Inactive Member Role Status Dates Yoko Helms MD Primary Care Provider Active Start: March 29, 2025 End: March 29, 2025 Yoko Helms MD Attending Provider Active St art: March 29, 2025 End: March 29, 2025 Team Status: Inactive Member Role Status Dates Yoko Helms MD Primary Care Provider Active Start: May 01, 2025 End: May 01, 2025 Maurisio Leon MD Attending Provider Active Star t: May 01, 2025 End: May 01, 2025 Team Status: Inactive Member Role Status Dates Yoko Helms MD Primary Care Provider Active Start: May 10, 2025 End: May 10, 2025 Maurisio Leon MD Attending Provider Active Star t: May 10, 2025 End: May 10, 2025 Scheduled Active and Recently Administ ered Medications (unrecognized section and content) Medication Order 09/03/2022 09/04/2022 09/05/2022 aspirin EC tablet 81 mg, Oral, DAILY, First dose on Wed09/04/22 at 0900, Until Discontinued 0828 (Given - Provider: Macario Pérez RN) 1200 (Due - Provider: Randy Tsang RN) fentaNYL Citrate PF SOSY 25 mcg (COMPLETED) 25 mcg, Intravenous Push, STAT, 1 dose, On Wed09/03/22 at 2217 2231 (Given - Provider: Harpal Bruno) furosemide (LASIX) 10 mg/mL injection (COMPLETED) 20 mg, Intravenous Push, ONCE, 1 dose, On Wed09/04/22 at 0150 0243 (Given - Provider: Nery Schneider RN) insulin glargine (LANTUS SOLOSTAR/BASAGLAR KWIKPEN) 100 [...] Levy RN) 0830 (Given - Provider: Randy Tsang RN)1200 (Due)1700 (Due) iohexol (OMNIPAQUE) 350 MG/ML injection (COMPLETED) 100 mL, Intravenous Push, Once at Radiology exam, 1 dose, Starting on Bhumi 09/03/22 at 2144, Until Bhumi 09/03/22 at 2144, Imaging Protocol Orders 2144 (Bolus given - Provider: Luz Reeder) lactated ringers iv bolus (COMPLETED) 500 mL, at 999 mL/hr, Intravenous, FLUID BOLUS, 1 dose, On Wed09/04/22 at 0410 0412 (IV New Bag - Provider: Nery Schneider RN) lactated ringers iv bolus (COMPLETED) 500 [...] BE BASED ON THE PRIMARY CLINICAL RECORDS. [employer] [facility]. provides no warranty or guarantee of the accuracy or completeness of information in this document.
[2025-06-01 11:44] LABS: Anion Gap 15.3; Blood Urea Nitrogen 57.0 mg/dL (7.0-18.0); Calcium 8.9 mg/dL (8.5-10.1); Carbon Dioxide 27.4 mmol/L (21.0-32.0); Chloride 105 mmol/L (98-107); Estimated GFR (African America 23 (>=60 mL/min/1.73m^2); Estimated GFR (Non-African Ame 19 (>=60 mL/min/1.73m^2); Glucose 61 mg/dL (74-106); Potassium 4.7 mmol/L (3.5-5.1); Sodium 143 mmol/L (136-145)
== END 2025-06-01 09:47 | disposition home or self-care (01) ==
LOC: LAB 09:48
PROVIDERS: PCP Family Medicine; Visit Provider Internal Medicine Interventional Cardiology
DX: I34.2 Nonrheumatic mitral (valve) stenosis (principal); Z95.2 Presence of prosthetic heart valve; I27.20 Pulmonary hypertension, unspecified; N18.32 Chronic kidney disease, stage 3b
CPT/HCPCS: 36415; 80048; 93306; 93356

== ENCOUNTER 2025-07-31 10:30 | Outpatient (OUT) | payer MEDICARE, SELFPAY ==
--- OUTSIDE RECORDS SUMMARY | 2025-07-31 10:34 | XMS_ITS | Clinical Summary ---
Author Organization [facility] Address [address] [place] [address] Care Team Providers Care History Teacher Name Role Phone Marlen Wilkerson MD Primary Care Provider [phone] Allergies Active AllergyReactionsCriticalityNoted DateCommentsAcetaminophenUnknown 09/23/20226780XduvxozCpznt89/30/2021Hydrocodone-Qywalqlumhzyn40/06/2022Hydroquinone Rash,EvouaozWoq80/30/2021HydroxychloroquineGI vusqvhttexw86/30/2021 FbmagrvbhgajhncbQrrsztl85/04/2023Sulfamethoxazole-LnsettjaciykRwopz44/30/2021 JsdcdgtcqgppTcggfvm73/04/2023 Medications MedicationSigDispense QuantityRefillsLast FilledStart DateEnd DateStatus insulin detemir (Levemir U-100 Insulin) 100 unit/mL injection Levemir U-100 Insulin 100 unit/mL subcutaneous solution INJECT 35 UNITS SUBCUTANEOUSLY ONCE A DAYActive Basaglar KwikPen U-100 Insulin 100 unit/mL (3 mL) injection pen 07/22/2023ctive sodium bicarbonate 650 mg tablet Take 325 mg by mouth in the morning and at bedtime.Active potassium chloride CR (K-Tab) 20 mEq ER tablet Indications:Chronic diastolic congestive heart failure (CMS/HCC)TAKE 1 TABLET BY MOUTH EVERY DAY 90 tablet ctive metoprolol succinate XL (Toprol-XL) 25 mg 24 hr tablet Indications:Nonrheumatic aortic valve stenosis,Primary hypertension,Coronary artery disease involving [place] coronary artery of [place] heart without angina pectoris,Benign hypertensive heart disease with heart failure (CMS/HCC)TAKE 1 TABLET BY MOUTH EVERY DAY IN THE MORNING 90 tablet 310/4Active furosemide (Lasix) 40 mg tablet Indications:Pulmonary hypertension (CMS/HCC),Non-rheumatic mitral valve stenosis ,Chronic diastolic congestive heart failure (CMS/HCC)Take 1 tablet (40 mg) by mouth three times daily. 270 tablet 301/501/6Active Tresiba FlexTouch U-100 100 unit/mL (3 mL) injection Inject 100 Units under the skin in the morning.5Active insulin glargine-yfgn 100 unit/mL (3 mL) insulin pen Inject 100 Units under the skin in the morning.5Active aspirin 81 mg EC tablet Indications:Nonrheumatic aortic valve stenosisTAKE 1 TABLET BY MOUTH EVERY DAY IN THE MORNING 90 tablet 5Active dapagliflozin propanediol (Farxiga) 10 mg Indications:Acute combined systolic and diastolic heart failure (CMS/HCC), Chronic combined systolic and diastolic heart failure, NYHA class 2 (CMS/HCC) Take 1 tablet (10 mg) by mouth in the morning. 90 tablet 306506/6Active sildenafil (Revatio) 20 mg tablet Indications:Pulmonary hypertension (CMS/HCC)TAKE 1 TAB BY MOUTH 3 TIMES DAILY. HOLD AMLODIPINE IF SBP<110 CALL CLINIC FOR FURTHER INSTRUCTION 270 tablet 5Active gabapentin (Neurontin) 100 mg capsule Take 100 mg by mouth in the morning.5Active sildenafil (Revatio) 20 mg tablet Indications:Pulmonary hypertension (CMS/HCC)Take 1 tablet (20 mg) by mouth three times daily. Please hold Amlodipine if SBP <110, Call clinic for further instructions. 270 tablet Discontinued Active Problems ProblemNoted DateDiagnosed DateConjunctivitis, right eye07/06/2025Hypokalemia 07/06/2025Insulin use (long-term) in type 2 cboqklfi71/17/2025 Overview (07/06/2025): Problem List clean-up per request of Phys. EHR Cmte Localized edema07/06/2025Longstanding persistent atrial msfzormmlvfe77/17/2025 Medicare annual wellness visit, gdncxvnhaw29/17/2025Benign essential HTN 03/03/2024orns and khdqohvdnid20/14/2024Hammer toe03/03/2024Ingrowing nail 03/03/2024Tinea xxoshqe0703/03/2024FallFoot drop, bilateral Unspecified bacterial nwqwduzke99/16/2023hronic combined systolic and diastolic heart failure, NYHA class Assessment & Plan (08/11/2023 2:12 PM EST): [...] 2+ edema bilateral lower extremities shortness of breaththat is slightly worse than previously with exertion. [...] 1.5-2L/day, renal function and electrolytes- Cognitive communication kixzigi9609/24/2022ementia in other diseases classified elsewhere, mild, without behavioral disturbance, psychotic disturbance, mood disturbance, and brrrjzu1409/24/2022History of ezfdtfn9009/24/2022Muscle weakness (generalized)09/24/2022Unspecified abnormalities of gait and mearwcnp59/05/2023 Cognitive communication lvxkvjif08/05/2023ltered mental status, unspecified 09/23/2022nemia, crouxyycwdo24/04/2023therosclerotic heart disease of bridge[place] coronary artery without angina aqevmxti39/04/2023 Assessment & Plan (08/11/2023 2:13 PM EST): Coronary artery disease is stable Continue GDMT-ASA, toprol continue risk factor modifications- heart healthy diet, regular exercise as tolerated and continue all medications. Assessment & Plan (01/29/2023 3:41 PM EDT): Coronary artery disease is stable without any concerning symptoms Continue GDMT- ASA, toprol Displaced fracture of base of fourth metacarpal bone, left hand, subsequent encounter for fracture with routine mjqvpyj5809/23/2022Myocardial infarction type Assessment & Plan (08/11/2023 2:11 PM EST): Coronary artery disease is stable Ntckgxpmogiiiq70/04/2023Tachycardia, dxsevtpgqwa89/04/2023Type 2 diabetes mellitus with diabetic chronic kidney zeygjzo8709/23/2022hronic kidney disease, qssnifttkki91/04/3489Ncitkiv68/16/2022tage 3b chronic kidney pyctszr8607/27/2022 Closed comminuted fracture of left humerus with osyjzhrm04/04/2022pen fracture of proximal end of left humerus with myuatpdl28/06/2022Injury of humerus 05/04/2022ulmonary uvfjhcbzliqn01/05/2022 Assessment & Plan (08/11/2023 2:11 PM EST): Pt recently was initiated on Sildenafil s/p recent RHC with vasoreactivity study Continue sildenafil- Norvasc was dc'd r/t hypotension and near syncope. Overall pt states she feelsbetter, reports WILKES but states this is improved [...] no concerning symptoms at this time Kidney qlxxscf0211/30/2021evere aortic mgusssmm77/31/2021 Assessment & Plan (08/11/2023 2:09 PM EST): [...] f/u With Dr Arellano H/O aortic valve lrqkskxozmc92/30/2021Left humeral /30/2021KD (chronic kidney disease) stage 3, GFR 30-59 ml/min1Benign hypertensive cardiomyopathy with heart pyhldar1002/01/2019 Assessment & Plan (08/11/2023 2:12 PM EST): HTn is well controlled 110/43 Continue all meds- norvasc was DCd after initiation of Sildenafil for Pulm HTN and noted hypotension and lightheadedness. Non-rheumatic mitral valve /15/2019 Assessment & Plan (08/11/2023 2:11 PM EST): stable Assessment & Plan (06/07/2023 4:43 PM EDT): stable Assessment & Plan (01/29/2023 3:43 PM EDT): Continue to monitor with routine echocardiogram. D/W pt and son to call office for increased shortness of breath, palpitations, leg swelling, chest pain or any concerning symptoms and they voiced understanding Diabetes omuuulvt84/15/2019 Resolved Problems ProblemNoted DateDiagnosed DateResolved DateDiastolic heart rahicue8001/22/2022 06/09/2023ombined systolic and diastolic congestive heart failure, NYHA class 2 Assessment & Plan (06/09/2023 8:45 AM EDT): Encounters DateTypeDepartmentCare HrtpKpynzmfpbje00/17/2025 3:45 PM EDTOffice Visit [address] [phone] Griffin Arellano MD S/P TAVR (transcatheter aortic valve replacement) (Primary Dx); Pulmonary hypertension (CMS/HCC); Non-rheumatic mitral valve stenosis; Coronary artery disease involving [place] coronary artery of [place] heart without angina pectoris; Chronic diastolic congestive heart failure (CMS/HCC); Primary hypertension; Nonrheumatic tricuspid valve regurgitation; Non-rheumatic mitral regurgitation; CKD (chronic kidney disease) stage 4, GFR 15-29 ml/min (CMS/HCC)07/05/2025Refill [address] [phone] Griffin Arellano MD Pulmonary hypertension (CMS/HCC)07/05/2025[facility] [address] [place] [phone] Praveena Candelaria CNP Acute combined systolic and diastolic heart failure (CMS/HCC); Chronic combined systolic and diastolic heart failure, NYHA class 2 (CMS/HCC) from Last 3 Months Family History Medical HistoryRelationNameCommentsEmphysemaFatherDiabetesMotherRelationName StatusCommentsFatherDeceasedMotherDeceased Social History Tobacco UseTypesPacks/DayYears UsedDateSmoking Tobacco: NeverSmokeless Tobacco: Never Tobacco Cessation:Counseling Given: Not Answered Alcohol UseStandard Drinks/WeekCommentsNever0 (1 standard drink = 0.6 oz pure alcohol)UT Safety & EnvironmentAnswerDate RecordedFear of Current or Ex-Partner Not on file11/11/2023Emotionally AbusedNot on file11/11/2023hysically AbusedNot on file11/11/2023Sexually AbusedNot on file11/11/2023hysically or Sexually AbusedNot on file11/11/2023CommentsNoSex and Gender InformationValueDate RecordedSex Assigned at EbpukQjcmxj85/06/2022 10:26 AM EDTLegal SexFemale 03/18/2022 10:13 PM EDTGender IldyiyomLwtbto57/06/2022 10:26 AM EDTSexual OrientationHeterosexual or Cxvyqnph73/13/2025 2:02 PM EDT Last Filed Vital Signs Vital SignReadingTime TakenCommentsBlood Bwcsrwqo287/5307/06/2025 4:01 PM EDT Qzjep099107/06/2025 4:01 PM ALLLlbisncjtzh76.9 ??C (98.4 ??F)02/17/2022 1:56 PM EDTRespiratory Frgq481410/11/2022 1:29 PM ESTOxygen Ngafydefpq48%07/06/2025 4:01 PM EDTInhaled Oxygen Concentration--Yicssl25.4 kg (164 lb)07/06/2025 4:01 PM EDT Cizpqn641 cm (5' 3 )07/06/2025 4:01 PM EDTBody Mass Index29.0507/06/2025 4:01 PM EDT Plan of Treatment Health MaintenanceDue DateLast DoneCommentsMedicare Annual Wellness (AWV) 1935Diabetes: Retinopathy Dshjaezsb64/13/1947Depression Screening 1948Zoster Vaccines (1 of 2)Fall Risk Screening 2001Adult Cptwrrt16Diabetes: Hemoglobin A1C12/02/2022 2COVID-19 Vaccine ( season), 06/01/2024, 08/20/2023, Additional history existsPneumococcal Vaccine: 50+ YearsCompleted 05/30/2020, 05/25/2019, 06/10/2016, Additional history existsInfluenza Vaccine Ndouffsqy30/13/2025, 06/01/2024, 08/20/2023, Additional history existsHIB VaccinesAged OutNo longer eligible based on patient's age to complete this topic HPV VaccinesAged OutNo longer eligible based on patient's age to complete this topicIPV VaccinesAged OutNo longer eligible based on patient's age to complete this topicMeningococcal B VaccineAged OutNo longer eligible based on patient's age to complete this topicMeningococcal VaccineAged OutNo longer eligible based on patient's age to complete this topicRotavirus VaccinesAged OutNo longer eligible based on patient's age to complete this topic Insurance Care Teams Team MemberRelationshipSpecialtyStart DateEnd Date Marlen Wilkerson MD [address] [place] [address] #A [facility]05/05/22
--- OUTSIDE RECORDS SUMMARY | 2025-07-31 10:34 | XMS_ITS | Clinical Summary ---
Author Organization [facility] Address [address] [facility] [place] [address] Care Team Providers Care Drapery Rod Assembler Name Role Phone Marlen Wilkerson MD Primary Care Provider [phone] Source Comments The following information is NOT included in Care Everywhere downloads:Psychiatric notes, ECG results, Cardiac Rehab notes, Pulmonary Function notes, data from [employer] (includes but not limited toPregnancy data,audiograms, eye exams, pre-surgical evaluation notes, well-child exam data).[facility] Allergies Active AllergyReactionsCriticalityNoted KkxaCnquuzohNthjfbqWrbaw06/30/2021 AqawqkzbiieYqzja93/30/2021Hydrocodone-Ntbgdhvfpdnqg31/06/2022HydroquinoneRashLow 09/18/20214033OamefxhryvuiwnwhypJrtfhe47/30/2021Sulfamethoxazole W-TrimethoprimHives 09/18/2021 Medications MedicationSigDispense QuantityRefillsLast FilledStart DateEnd DateStatus aspirin EC 81 MG tablet Take 81 mg by mouth.07/27/2022ctive OneTouch Ultra strip USE 1 STRIP TO TEST 3 TIMES A DAY07/16/2022ctive Levemir 100 UNIT/ML injection INJECT 35 UNITS SUBCUTANEOUSLY EVERY DAY08/23/2022ctive losartan (COZAAR) 25 MG tablet Take 0.5 Tablets by mouth daily.09/23/2021ctive metoprolol (TOPROL-XL) 25 mg XL tablet Take 25 mg by mouth daily.07/11/2022ctive sodium bicarbonate 650 MG tablet Take 1,300 mg by mouth 2 times daily.07/20/2022ctive Active Problems ProblemNoted DateDiagnosed DateSyncope, unspecified syncope type09/04/2022losed comminuted fracture of left humerus with /04/2022pen fracture of proximal end of left humerus with ibbgeasa90/06/2022evere aortic stenosis 1Acute on chronic diastolic CHF (congestive heart failure)09/18/2021H/O aortic valve dswdpzlsgdu68/30/2021KD (chronic kidney disease) stage 3, GFR 30- 59 ml/min09/18/2021iabetes qzpbhcjy29/15/2019HTN (hypertension)02/01/2019Non- rheumatic mitral valve mejdmzlx05/15/2019 Family History Medical HistoryRelationNameCommentsDiabetes MellitusMotherHypertensionMother RelationNameStatusCommentsMother Social History Tobacco UseTypesPacks/DayYears UsedDateSmoking Tobacco: Never Tobacco Cessation:Counseling Given: Not Answered Alcohol UseStandard Drinks/WeekCommentsNever0 (1 standard drink = 0.6 oz pure alcohol)Substance UseTypesUse/WeekCommentsNeverCommentsUnknownSex and Gender InformationValueDate RecordedSex Assigned at BirthNot on fileLegal Sex Gigdir8209/03/2022 5:17 PM ESTGender IdentityNot on fileSexual OrientationNot on file Last Filed Vital Signs Vital SignReadingTime TakenCommentsBlood Cbgsxpxj943/6809/05/2022 11:09 AM EST Ohzyl941409/05/2022 11:09 AM SBIStvwjnjyaux22.4 ??C (97.6 ??F)09/04/2022 12:35 AM ESTRespiratory Zbsb191611/06/2021 11:09 AM ESTOxygen Dlyfixrzex02%09/05/2022 11:09 AM ESTInhaled Oxygen Concentration--Weight--Height--Body Mass Index-- Plan of Treatment Health MaintenanceDue DateLast DoneCommentsFoot Exam1936Eye Exam1936 Urine Protein (microalbumin)1936Tdap Vviwauj6611/02/1954Hepatitis A (HAV) Vaccine (optional start 19+ years)1955Pneumococcal Vaccine(s) (50+ yrs) (1 of 2 - PCV)1955Shingles (RZV) Vaccine (1 of 2)1986Hepatitis B (HBV) Vaccine (optional start 60+ years)1996Bone Jlhxvpuzzbcn91/13/2002Annual Wellness Visit (G0438)10/21/2002RSV vaccine (adult) (1 - 1-dose 75+ series) 2011Hemoglobin A1CLipid Lzqmmnb82 Basic Metabolic Panel, 09/03/2022, 09/22/2021, Additional history existsCOVID-19 Vaccine ( - 2024- season)2025Influenza Vaccine (#1)2025Ejection PjgtgemsFwbmblism81/16/2022ap SmearDiscontinued Procedures Procedure NamePriorityDate/TimeAssociated DiagnosisCommentsBASIC METABOLIC PANEL STAT111/06/2021 8:10 AM EST ECHOCARDIOGRAM HOYDOL6409/04/2022 10:49 AM EST FULL LIPID ZCBTKUHRDMG81/15/2022 8:41 PM EST HEMOGLOBIN K5JVIHS3709/03/2022 8:41 PM EST from Last 3 Months or Most Recently Relevant to Health Maintenance Results * (ABNORMAL) BASIC METABOLIC PANEL (09/05/2022 8:10 AM EST)ComponentValueRef RangeTest MethodAnalysis TimePerformed AtPathologist KqlaufbnqCwtmzdv957(H)80 - 116 mg/dL09/05/2022 10:00 AM ESTS PATHOLOGY ACDFSPMSIORsxdop701056 - 148 mmol/L111/06/2021 10:00 AM ESTS PATHOLOGY LABORATORYPotassium4.43.3 - 5.3 mmol/L111/06/2021 10:00 AM ESTS PATHOLOGY LABORATORYCarbon Dviulma9280 - 30 mmol/L111/06/2021 10:00 AM ESTS PATHOLOGY BBNEPFNYMXDotlbooj13224 - 111 mmol/L111/06/2021 10:00 AM ESTS PATHOLOGY LABORATORYBlood Urea Rftmkaoc48(H)8 - 22 mg/dL09/05/2022 10:00 AM ESTUN[facility] PATHOLOG[facility] LABORATORYCreatinine1.47(H)0.50 - 1.10 mg/dL09/05/2022 10:00 AM [facility] PATHOLOGY LABORATORYCalcium8.3(L)8.4 - 10.4 mg/dL09/05/2022 10:00 AM [facility] PATHOLOGY LABORATORYAnion Aqi5908 - 20 09/05/2022 10:00 AM [facility] PATHOLOGY LABORATORYEstimated GFR (CKD-EPI)35(L) >=60 mL/min/1.30cru2811/06/2021 10:00 AM [facility] PATHOLOGY LABORATORYComment: 2020 CKD EPI Equation using Creatinine without Race Comment: ??Estimated glomerular filtration rate (eGFR) is calculated without a race coefficient. Values should be interpreted in the context of the patient's full clinical presentation. Reference: 1. Nicko C, Cyn M, Ibeth DC, et al.. A Unifying Approach for GFR Estimation: Recommendations of the NKF-ASN Task Force on Reassessing the Inclusion of Race in Diagnosing Kidney Disease. AmericanJournal of Kidney Diseases 2021;79(2):268-88.e1. 2. N Engl J Med 1 Vol. 385 Issue 19 Pages 8119-8367 Specimen (Source)Anatomical Location / LateralityCollection Method / Volume Collection TimeReceived TimeBloodBLOOD SPECIMEN / Jqexoyu0009/05/2022 8:10 AM EST 09/05/2022 9:28 AM EST Narrative Authorizing ProviderResult TypeResult StatusJuan Johnson MD98 GENERAL LABFinal ResultPerforming OrganizationAddressCity/State/ZIP CodePhone Number [facility] [address] [place] [phone] * ECHOCARDIOGRAM REPORT (09/04/2022 10:49 AM EST)ComponentValueRef RangeTest MethodAnalysis TimePerformed AtPathologist SignatureLeft Ventricular Ejection Whvxlgxu19%HEART AND VASCULAR CLINICMitral StenosissevereHEART AND VASCULAR CLINICMitral RegurgitationphysiologicHEART AND VASCULAR CLINICAnatomical RegionLateralityModalityOtherSpecimen (Source)Anatomical Location / Laterality Collection Method / VolumeCollection TimeReceived Time09/04/2022 10:49 AM EST Narrative Procedure Note Etienne Antoine MD - 09/04/2022 10:49 AM EST Transthoracic Echocardiographic Report Name: ELIZABETH MACIEL Interpreting MATT Quintero MD Physician: : [id number] Referring ANTHONY JOSE DO Physician: Age: 86 Technical Engineer: Cinthya Borja RDCS Exam Date: 09/04/2022 Fellow: 10:49 AM [...] . Doctor's order(s)verified. Patient's preferred language is Ukrainian . Verbal consent for left heart echo contrast was obtained afterexplanation of the risks (1/10,000 significant and 1/3,000 minor allergic reactions)and benefits (needed enhancement of imaging) were explained. Administration of 1 dose(s) of 1.5 ml of Definity diluted to .5 ml ofsaline was administered by cinthya borja rdcs. Supine BP: 149/52 mmHg Patient Status: [...] Quintero MD(Interpreting physician) on 09/04/2022 12:03 PM Authorizing ProviderResult TypeResult StatusJaziel Madsen DOEC NON-INVASIVE CARDIOVASCULAREdited Result - Final * (ABNORMAL) FULL LIPID PROFILE (09/03/2022 8:41 PM EST)ComponentValueRef Range Test MethodAnalysis TimePerformed AtPathologist RjpympleeNddbmfbflhq749<200 mg/dL09/04/2022 5:06 AM ESTS PATHOLOGY FZRIZWVSVBKavbwehsjkmcw51<151 mg/dL 09/04/2022 5:06 AM ESTUNM [facility] PATHOLOGY LABORATORYHDL Uyjvawtnmye46(L)>54 mg/dL 09/04/2022 5:06 AM [facility] PATHOLOGY LABORATORYLDL yvgwgaqejut759<111 mg/dL 09/04/2022 5:06 AM [facility] PATHOLOGY LABORATORYNon-HDL Kginxtdtrqm079<130 mg/dL 09/04/2022 5:06 AM [facility] PATHOLOGY LABORATORYChol/HDL Ratio3.70<5.00 09/04/2022 5:06 AM [facility] PATHOLOGY LABORATORYLDL/HDL Ratio2.48<3.5709/04/2022 5:06 AM [facility] PATHOLOGY LABORATORYSpecimen (Source)Anatomical Location / LateralityCollection Method / VolumeCollection TimeReceived TimeBloodBLOOD SPECIMEN / Gendekj4309/03/2022 8:41 PM EST09/03/2022 9:09 PM EST Narrative Authorizing ProviderResult TypeResult StatusJaziel Madsen DO98 GENERAL LABFinal ResultPerforming OrganizationAddressCity/State/ZIP CodePhone Number [facility] [address] [phone] * (ABNORMAL) HEMOGLOBIN A1C (09/03/2022 8:41 PM EST)ComponentValueRef RangeTest MethodAnalysis TimePerformed AtPathologist SignatureHemoglobin A1c7.4(H)4.0 - 5.6 %09/04/2022 3:13 PM [facility] PATHOLOGY LABORATORYEstimated Avg Jutctnc516pb/dL09/04/2022 3:13 PM [facility] PATHOLOGY LABORATORYSpecimen (Source)Anatomical Location / LateralityCollection Method / VolumeCollection TimeReceived TimeBloodBLOOD SPECIMEN / Smiqpkj9909/03/2022 8:41 PM EST09/03/2022 9:32 PM EST Narrative Authorizing ProviderResult TypeResult StatusJaziel Madsen DO98 GENERAL LABFinal ResultPerforming OrganizationAddressMckitrick Hospital/State/ZIP CodePhone Number [facility] [address] [place] [address], [facility] from Last 3 Months or Most Recently Relevant to Health Maintenance Insurance Advance Directives * DNR Comfort Care Arrest- Do Not Intubate (Latest Code Status on File) Date ActivatedDate LbxzioynhfnEtzcdsyz63/16/2022 4:20 AM09/05/2022 4:40 PM Protocol is activated when the patient experiences cardiac or respiratory arrest. (All necessary treatments and interventions can be initiated prior to arrest.)QuestionAnswerCommentsDocumentation of decision process for this code status:* Discussed with patient or surrogate.?? This is the code status chosen by the patient/surrogate. * Full Code Date ActivatedDate EymzjfkmuyxFcnmrppd71/16/2022 2:57 AM09/04/2022 4:20 AM QuestionAnswerCommentsDocumentation of decision process for this code status:* Patient and surrogate unable or unavailable to discuss.?? There is no previous documentation of code status.?? Defaulting to Full Code Care Teams Team MemberRelationshipSpecialtyStart DateEnd Date Marlen Wilkerson MD [address] [facility] [place] [address] PCP - GeneralFamily Vtewdbjx49/17/22
--- OUTSIDE RECORDS SUMMARY | 2025-07-31 10:34 | XMS_ITS | Clinical Summary ---
Author Organization [facility] Address [address] [place] [address] Phone Care Team Providers Care Rail Car Maintenance Mechanic Name Role Phone Marlen Wilkerson MD Primary Care Provider [phone] Social History Tobacco UseTypesPacks/DayYears UsedDateSmoking Tobacco: Never Assessed CommentsUnknownSex and Gender InformationValueDate RecordedSex Assigned at Not on fileLegal SmlYegcvr26/03/2023 2:55 PM ESTGender IdentityNot on fileSexual OrientationNot on file Plan of Treatment Health MaintenanceDue DateLast DoneCommentsLipid Panel1936Yearly Adult Jjsadytx99/13/1937DTaP/Tdap/Td Vaccines (1 - Tdap)1958Pneumococcal Vaccine (1 of 1 - PCV)1986Zoster Vaccines (1 of 2)1986Bone Density Scan 2001RSV High Risk: (Elderly (60+) or Population) (1 - 1-dose 75+ series)2011Influenza Vaccine (#1)2025OVID-19 Vaccine (1 - season)2025HIB VaccinesAged OutNo longer eligible based on patient's age to complete this topicHPV VaccinesAged OutNo longer eligible based on patient's age to complete this topicHepatitis A VaccinesAged OutNo longer eligible based on patient's age to complete this topicHepatitis B VaccinesAged OutNo longer eligible based on patient's age to complete this topicIPV VaccinesAged OutNo longer eligible based on patient's age to complete this topicMeningococcal VaccineAged OutNo longer eligible based on patient's age to complete this topic Rotavirus VaccinesAged OutNo longer eligible based on patient's age to complete this topic Care Teams Team MemberRelationshipSpecialtyStart DateEnd Date Marlen Wilkerson MD [address] [place] [address] PCP - General09/22/22
--- OUTSIDE RECORDS SUMMARY | 2025-07-31 10:34 | XMS_ITS | Clinical Summary ---
Author Organization [facility]Acc[facility] s tem Address [id number] [place] [address] Care Team Providers Care Barber Stylist Name Role Phone Unavailable Primary Care Provider Unavailabl e Social History Tobacco UseTypesPacks/DayYears UsedDateSmoking Tobacco: Never Assessed CommentsUnknownSex and Gender InformationValueDate RecordedSex Assigned at Not on fileLegal VowSdvbea17/10/2022 9:10 AM ESTGender IdentityNot on fileSexual OrientationNot on file Plan of Treatment Health MaintenanceDue DateLast DoneCommentsDepression Odhtpybbb08/13/1949Tobacco Iegqpraim90/13/1948DTaP,Tdap and Td Vaccines (1 - Tdap)1955Zoster (Shingles) Vaccine (1 of 2)1986Fall Risk Wcknapcbp20/13/2002RSV ( or age 60+ yrs) (1 - 1-dose 75+ series)2011COVID-19 Vaccine ( season)/, 12/20/2020, 11/21/2020Influenza Pavwwye4905/21/2025 05/28/2021, 05/25/2019, 05/31/2018, Additional history exists Medical Devices Not on file Insurance
== END 2025-07-31 10:31 | disposition home or self-care (01) ==
LOC: LAB 10:31
PROVIDERS: PCP Family Medicine; Visit Provider Family Medicine
DX: E11.65 Type 2 diabetes mellitus with hyperglycemia (principal); Z79.4 Long term (current) use of insulin
CPT/HCPCS: 36415; 83036

== ENCOUNTER 2025-07-31 10:35 | Outpatient (OUT) | payer MEDICARE, SELFPAY ==
--- OUTSIDE RECORDS SUMMARY | 2025-07-31 10:40 | XMS_ITS | Patient Health Record ---
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 Name Role Phone Marlen Wilkerson Primary Care Provider Unavailabl e Allergies Allergen (clinical drug ingredient) Drug/Non Drug Allergy documented on EMR Reaction Allergy Type Onset Date Status sulfamethoxazole / trimethoprim Bactrim unknown Drug Allergy ActiveLortabunknownDrug AllergyActivecodeineCodeineunknownDrug AllergyActive hydroquinoneHydroquinoneunknownDrug AllergyActive Reason For Referral No Information Medications Medication SIG (Take, Route, Frequency, Duration) Notes Start Date End Date Status Farxiga 10 MG TAKE 1 TABLET BY JAIME TH EVERY DAY IN THE MORNING Oral; Duration: 30 Days ActiveFurosemide 40 MGTAKE 1 TABLET BY MOUTH EVERY DAY IN THE MORNING Oral; Duration: 90 DaysActiveMetoprolol Succinate ER 25 MGOral; Duration: 90 Days ActiveNovoLOG FlexPen 100 UNIT/MLINJECT PER SLIDING SCALE 3-4 TIMES PER DAY *MAX 30 UNITS PER DAY* Subcutaneous; Duration: 90 DaysActivePotassium Chloride ER 20 MEQOral; Duration: 90 DaysActiveSildenafil Citrate 20 MGTAKE 1 TABLET BY MOUTH MORNING, NOON, AND AT BEDTIME. Oral; Duration: 90 DaysActiveSodium Bicarbonate 650 MGTAKE 1 TABLET BY MOUTH TWICE A DAY Oral; Duration: 90 DaysActiveamLODIPine Besylate 10 MGTAKE 1 TABLET BY MOUTH EVERY DAY Oral; Duration: 90 DaysNot-Taking Aspirin Low Dose 81 MGTAKE 1 TABLET BY MOUTH EVERY DAY IN THE MORNING Oral; Duration: 90 DaysActiveBasaglar KwikPen 100 UNIT/MLINJECT 35 UNITS SUBCUTANEOUSLY DAILY Subcutaneous; Duration: 85 DaysActive Social History Tobacco Use: Social History Observation Description Date Details (start date - stop date) Never Smoker NA - NA Tobacco Use/Smoking Question Answer Notes Patient is a nonsmoker Problems Problem Type SNOMED Code ICD Code Onset Dates Problem Status W/U Status Risk Notes Problem Tinea unguium (406351725) Tinea unguium ( B35.1) ActiveconfirmedProblemIngrowing nail (361298248)Ingrowing nail (L60.0)Active confirmedLeft hallux lateral borderProblemCallosity (164751637)Corns and callosities (L84)ActiveconfirmedProblemAcquired hammer toe of right foot (2296594338566905)Other hammer toe(s) (acquired), right foot (M20.41)Active confirmedProblemAcquired hammer toe of left foot (5401125710106452)Other hammer toe(s) (acquired), left foot (M20.42)Activeconfirmed Plan Of Treatment No Information Insurance Providers Payer Name Payer Address Payer Phone Subscriber Number Group Number Insured Name Patient Relationship to Insured Coverage Start Date Coverage End Date [place] [address] [place] [address] [id number] Raimundo Hewitt - [facility] [address] [place] [phone], JuanitaSelf - patient is the insured Medical (General) History Medical History History ICD Code hypertension congestive heart failurediabeteschronic kidney diseaseheartburnbleeding problems valve replacementheart diseaseSurgical History Surgery Date(Month/Year) cholecystectomy heart valveleft arm surgery
[2025-07-31 11:14] LABS: Glucose Urine UA 500 mg/dL (NEGATIVE); Protein Creatinine Ratio Urine 0.83; Total Protein Urine Random 49.4 mg/dL (<=11.9)
[2025-07-31 11:23] LABS: Hematocrit 34.0 % (36.0-48.0); Hemoglobin 10.9 g/dL (12.0-16.0); Mean Corpuscular HGB Conc 32.1 g/dL (29.9-35.2); Mean Corpuscular Hemoglobin 29.3 pg (26.7-34.0); Mean Corpuscular Volume 91.4 fL (81.0-99.0); Platelet Count 260 10^3/uL (150-450); Red Blood Count 3.72 10^6/uL (4.20-5.40); White Blood Count 7.8 10^3/uL (4.0-11.0)
[2025-07-31 11:59] LABS: Albumin Level 3.1 g/dL (3.4-5.0); Anion Gap 13.3; Blood Urea Nitrogen 43.0 mg/dL (7.0-18.0); Calcium 8.7 mg/dL (8.5-10.1); Carbon Dioxide 27.4 mmol/L (21.0-32.0); Chloride 103 mmol/L (98-107); Estimated GFR (African America 27 (>=60 mL/min/1.73m^2); Estimated GFR (Non-African Ame 22 (>=60 mL/min/1.73m^2); Glucose 103 mg/dL (74-106); Magnesium 2.5 mg/dL (1.8-2.4); Potassium 4.7 mmol/L (3.5-5.1); Sodium 139 mmol/L (136-145); Uric Acid 8.0 mg/dL (2.6-6.0)
[2025-07-31 12:24] LABS: Iron 46.0 ug/dL (50.0-170.0); Percent Iron Saturation 18.0 %; Total Iron Binding Capacity 255.0 ug/dL (250.0-450.0)
[2025-07-31 12:44] LABS: Ferritin 113.0 ng/mL (8.0-252.0); Folate 6.80 ng/mL (8.60-58.90)
[2025-08-01 05:07] LABS: Vitamin B12 432 pg/mL (232-1245)
== END 2025-07-31 10:36 | disposition home or self-care (01) ==
LOC: LAB 10:37
PROVIDERS: PCP Family Medicine; Visit Provider Internal Medicine Nephrology
DX: D64.9 Anemia, unspecified (principal); I12.9 Hypertensive chronic kidney disease with stage 1 through stage 4 chronic kidney disease, or unspecified chronic kidney disease; E11.21 Type 2 diabetes mellitus with diabetic nephropathy; N18.4 Chronic kidney disease, stage 4 (severe); R60.0 Localized edema; E87.6 Hypokalemia; E11.65 Type 2 diabetes mellitus with hyperglycemia; Z79.4 Long term (current) use of insulin
CPT/HCPCS: 36415; 80069; 81003; 82306; 82570; 82607; 82728; 82746; 83036; 83540; 83550; 83735; 83970; 84156; 84550; 85027